=== PATIENT | male | born 1970 | race Caucasian/White ===

== ENCOUNTER 2018-07-10 03:29 | Emergency (ER) | payer MEDICARE, OTHER ==
--- NOTE | 2018-07-10 04:11 | ER Document Report ---
ED Psych Disorder / Suicide - General Mode of Arrival: Ambulatory Information source: Patient TRAVEL OUTSIDE OF THE U.[place]. IN LAST 30 DAYS: No <DORA WEINSTEIN - Last Filed: 07/10/18 04:11> <GABBIE DURAN - Last Filed: 07/10/18 22:21> - General Chief Complaint: Psych Problem Stated Complaint: PSYCH PROBLEM, IVC Time Seen by Provider: 07/10/18 03:42 Notes: Patient is a 47 year old male with bipolar disorder presents to the emergency department via [facility] on IVC paperwork. According to deputy, patient was making racial slurs and threatening to commit a mass shooting in [facility]. He states [facility] filed IVC paperwork on the patient and came to the [facility] to deliver them. Patient states he was at [facility] when he was picked up by the gluing crew leader's department. He states he does not know why he was picked up. He denies any HI, SI or making racial slurs. Patient states he was recently in a psychiatric facility a month ago and is now stable. He mentions currently taking [place] bicarbonate and further expresses concern for kidney damage due to taking the medication. He reports being compliant with all his medications. 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 (DORA WEINSTEIN) - Related Data Allergies/Adverse Reactions: No Known Allergies Allergy (Unverified 07/10/18 04:25) Past Medical History - General Information source: Patient, Law Enforcement - Social History Smoking Status: Unknown if Ever Smoked Family History: Reviewed & Not Pertinent Psychiatric Medical History: Reports: Hx Borderline Personality Disorder <DORA WEINSTEIN - Last Filed: 07/10/18 04:11> Review of Systems - Review of Systems Constitutional: No symptoms reported Cardiovascular: No symptoms reported Respiratory: No symptoms reported Gastrointestinal: No symptoms reported Genitourinary: No symptoms reported Male Genitourinary: No symptoms reported Musculoskeletal: No symptoms reported Skin: No symptoms reported Hematologic/Lymphatic: No symptoms reported Neurological/Psychological: See HPI -: Yes All other systems reviewed and negative <DORA WEINSTEIN - Last Filed: 07/10/18 04:11> Physical Exam - Vital signs Interpretation: Normal - General General appearance: Appears well, Alert - HEENT Head: Normocephalic, Atraumatic Eyes: Normal Pupils: PERRL - Respiratory Respiratory status: No respiratory distress Chest status: Nontender Breath sounds: Normal Chest palpation: Normal - Cardiovascular Rhythm: Regular Heart sounds: Normal auscultation Murmur: No - Abdominal Inspection: Normal Distension: No distension Bowel sounds: Normal Tenderness: Other - Suprapubic catheter that is not draining with urine leaking around it Organomegaly: No organomegaly - Back Back: Normal, Nontender - Extremities General upper extremity: Normal inspection, Nontender, Normal color, Normal ROM , Normal temperature General lower extremity: Normal inspection, Nontender, Normal color, Normal ROM , Normal temperature, Normal weight bearing. No: Martin's sign - Neurological Neuro grossly intact: Yes Cognition: Normal Orientation: AAOx4 Kelly Coma Scale Eye Opening: Spontaneous Holly Coma Scale Verbal: Oriented Kelly Coma Scale Motor: Obeys Commands Kelly Coma Scale Total: 15 Speech: Normal Motor strength normal: LUE, RUE, LLE, RLE Sensory: Normal - Psychological Associated symptoms: Psychomotor agitation, Other - Skin Skin Temperature: Warm Skin Moisture: Dry Skin Color: Normal <GABBIE DURAN - Last Filed: 07/10/18 22:21> - Vital signs Vitals: Temp Pulse BP Pulse Ox 99.4 F 86 135/77 H 100 07/10/18 03:33 07/10/18 03:33 07/10/18 03:33 07/10/18 03:33 Course <DORA WEINSTEIN - Last Filed: 07/10/18 04:11> - Laboratory Result Diagrams: 07/10/18 04:28 07/10/18 04:28 <GABBIE DURAN - Last Filed: 07/10/18 22:21> - Re-evaluation Re-evalutation: 07/10/18 05:35 Patient is a 47-year-old male who is brought in after being apparently homicidal , threatening a mass shooting, and making racial slurs in public. Patient was initially arrested and then IVC papers were brought in from [facility] so that he would have a mental health evaluation. Patient was recently in an inpatient psychiatric facility, he tells me a month ago. Patient has a history of bipolar disorder and is supposed to be taking lithium which he tells me that he has been taking. Unfortunately, his lithium level is nonexistent so this is unlikely the case. Patient also has a suprapubic catheter that does not appear to be effective at this time and will need to be replaced. Otherwise, he appears medically stable. He will be held for mental health evaluation. 07/10/18 06:00 Please note, given the specific plan that the patient has given for committing a mass shooting and that he was arrested prior to being brought in for mental health evaluation, it is strongly recommended that he be either placed in an inpatient psychiatric unit or go to fdc so that he is unable to harm anybody as planned. This was passed on to the daytime physician to relay to mental health. (GABBIE DURAN) - Vital Signs Vital signs: Temp Pulse Resp BP Pulse Ox 99.4 F 95 140/62 H 98 07/10/18 03:33 07/10/18 07:49 07/10/18 07:49 07/10/18 07:49 - Laboratory Laboratory results interpreted by me: 07/10/18 07/10/18 07/10/18 04:28 04:28 06:00 WBC 16.3 H Hgb 10.7 L Hct 34.1 L MCV 78 L MCH 24.6 L MCHC 31.5 L RDW 20.0 H Seg Neutrophils % 84.3 H Lymphocytes % 6.5 L Absolute Neutrophils 13.8 H Total Protein 6.2 L Albumin 3.2 L Urine Blood SMALL H Urine Nitrite POSITIVE H Urine Urobilinogen 2.0 H Ur Leukocyte Esterase LARGE H Salicylates < 1.0 L Acetaminophen < 10 L [place] 0.4 L Discharge <DORA WEINSTEIN - Last Filed: 07/10/18 04:11> <GABBIE DURAN - Last Filed: 07/10/18 22:21> - Discharge Clinical Impression: Homicidal ideation Condition: Stable Disposition: OTHER Referrals: LOCALMD,NO [NO LOCAL MD] - Follow up as needed Scribe Attestation: 07/10/18 22:20 I personally performed the services described in the documentation, reviewed and edited the documentation which was dictated to the scribe in my presence, and it accurately records my words and actions. (GABBIE DURAN) Scribe Documentation - Scribe Written by Scribe:: Damari Potter, 07/10/2018 04:13 acting as scribe for :: Deshaun <DORA WEINSTEIN - Last Filed: 07/10/18 04:11>
[2018-07-10 04:35] LABS: ABSOLUTE BASOPHILS # (AUTO) 0.1 10^3/uL (0.0-0.2); ABSOLUTE EOSINOPHILS # (AUTO) 0.1 10^3/uL (0.0-0.6); ABSOLUTE LYMPHOCYTES (AUTO) 1.1 10^3/uL (0.5-4.7); ABSOLUTE MONOCYTES (AUTO) 1.2 10^3/uL (0.1-1.4); ABSOLUTE NEUT (AUTO) 13.8 10^3/uL (1.7-8.2); BASOPHILS % (AUTO) 0.6 % (0-2); EOSINOPHILS % (AUTO) 0.9 % (0-6); HEMATOCRIT 34.1 % (37.9-51.0); HEMOGLOBIN 10.7 g/dL (13.5-17.0); LYMPHOCYTES % (AUTO) 6.5 % (13-45); MEAN CORPUSCULAR HEMOGLOBIN 24.6 pg (27.0-33.4); MEAN CORPUSCULAR HGB CONC 31.5 g/dL (32.0-36.0); MEAN CORPUSCULAR VOLUME 78 fl (80-97); MONOCYTES % (AUTO) 7.7 % (3-13); PLATELET COUNT 440 10^3/uL (150-450); RED BLOOD COUNT 4.36 10^6/uL (4.35-5.55); SEGMENTED NEUTROPHILS % (AUTO) 84.3 % (42-78); TOTAL CELLS COUNTED % (AUTO) 100 %; WHITE BLOOD COUNT 16.3 10^3/uL (4.0-10.5)
[2018-07-10 04:54] LABS: ALANINE AMINOTRANSFERASE 68 U/L (21-72); ALBUMIN 3.2 g/dL (3.5-5.0); ALKALINE PHOSPHATASE 88 U/L (38-126); ANION GAP 9 (5-19); ASPARTATE AMINO TRANSFERASE 37 U/L (17-59); BILIRUBIN,DIRECT 0.4 mg/dL (0.0-0.4); BILIRUBIN,TOTAL 0.7 mg/dL (0.2-1.3); BLOOD UREA NITROGEN 11 mg/dL (7-20); CALCIUM 8.7 mg/dL (8.4-10.2); CARBON DIOXIDE 30 mmol/L (22-30); CHLORIDE 100 mmol/L (98-107); GLUCOSE 96 mg/dL (75-110); LITHIUM 0.4 mEq/L (0.6-1.2); POTASSIUM 4.1 mmol/L (3.6-5.0); SODIUM 138.9 mmol/L (137-145); TOTAL PROTEIN 6.2 g/dL (6.3-8.2)
[2018-07-10 04:55] LABS: ACETAMINOPHEN < 10 ug/mL (10-30); ALCOHOL < 10 mg/dL (NONE DETECTED); SALICYLATE < 1.0 mg/dL (2.0-20.0)
[2018-07-10 06:31] LABS: APPEARANCE,URINE CLOUDY; BILIRUBIN,URINE NEGATIVE (NEGATIVE); COLOR,URINE YELLOW; GLUCOSE, URINE NEGATIVE (NEGATIVE); KETONES,URINE NEGATIVE (NEGATIVE); LEUKOCYTE ESTERASE,URINE LARGE (NEGATIVE); NITRITE,URINE POSITIVE (NEGATIVE); PROTEIN,URINE NEGATIVE (NEGATIVE); URINE SPECIFIC GRAVITY 1.004
[2018-07-10 06:34] LABS: URINE AMPHETAMINES SCREEN NEGATIVE; URINE BARBITURATES SCREEN NEGATIVE; URINE BENZODIAZEPINES SCREEN NEGATIVE; URINE COCAINE SCREEN NEGATIVE; URINE MARIJUANA (THC) SCREEN NEGATIVE; URINE METHADONE SCREEN NEGATIVE; URINE PHENCYCLIDINE SCREEN NEGATIVE
[2018-07-10] MEDS ORDERED: CEPHALEXIN 500 MG CAPSULE PO ONE ×2 (10:17→19:10)
--- NOTE | 2018-07-10 10:17 | ER Document Report ---
Doctor's Note Notes: 07/10/18 10:14 Rounds: Chart reviewed and patient interviewed. Patient here being evaluated for apparently threatening language. Patient has an extensive medical history. He sustained a condition known as transverse myelitis secondary to flu vaccination in 2011. As a result, patient has no bladder or bowel control. He has a suprapubic catheter in place. It has been having difficulty flowing. WBC 16,300, but patient does not appear to be septic, etc. He had a Ov catheter placed last night and it is flowing well and he has a leg bag for that catheter. Culture of the urine has been ordered. Vital signs are all normal. Patient appears to be medically stable for transfer or discharge. Chapito Solorzano MD
[2018-07-10] MEDS ORDERED: ACETAMINOPHEN 325 MG TABLET PO ONE ×2 (11:09→18:53)
[2018-07-10] MEDS ORDERED: OXYCODONE-ACETAMINOPHEN 5-325 MG TABLET PO ONE ×2 (11:09→18:52)
[2018-07-10] MEDS ORDERED: LITHIUM CARBONATE 300 MG CAPSULE PO ONE ×2 (16:21→17:00)
[2018-07-10] MEDS ORDERED: ACETAMINOPHEN 325 MG TABLET ONE (17:48)
--- NOTE | 2018-07-10 19:07 | PSYCHOLOGICAL NOTE ---
Psych Note - Psych Note Psych Note: Reason for Consult: IVC Patient is a 47 year old male with bipolar disorder presents to the emergency department via [facility] on IVC paperwork. According to , patient was making racial slurs and threatening to commit a mass shooting in [facility]. Patient disclosed that he was brought he by police but that he didn't communicate any threat. He disclosed he said "I wish to punch his teeth out....that is not a threat...I said I wish." He continued to disclose information and background on a relationship with a former friend that has caused discord. 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 He is firm in his report that he is taking the medication and becomes very agitated when asked about why there is no one detectable in his lab work and asked if the clinician was calling him a liar. He then reports that he would like to finish so he can get his dog from the hotel room. He stats the dog is a trained police and therapy dog and will only respond to him and attack anyone else. Patient then started talking about a drug deal that he needed to tell the authorities about; 'I tried to tell them last night but they wouldn't listen." Patient continued to discuss other topics, moving from one to the next quickly making connections with were difficult to follow. Behavioral health team contact IVC petitioner. This scientific writer spoke to Detective Vyas in [place] who petitioned the patient , who reports the patient has been inpatient at least 3x in [place] and per history has a diagnosis of Bipolar. Asael reports the patient is a witness to a crime in an on going investigation and came to the station informing them he did not like how the investigation is being run, stating he used to be in the [employer]. Per report patient often claims he knows about a big drug deal about to happen, hire to kill crimes and other delusions. Per Asael the patient has been threatening multiple business furniture sales consultant that have ban him, on two occasions leaving threatening voice mails, one of which patient states he was going to cause massive causalities in disguise on [facility]. Per Asael two days ago the patient was kicked out of [employer], then told the own "this is why there are mass shootings". Per calvin the patient had to be narcan about a month ago after using heroin and a life bullet vest and ammo were found in his car, he is also a convicted felon. Asael reports there is a video on facebook of the patient standing in the middle of the road yelling racial slurs. Clinician obtained collateral from Krish Wiseman [phone]. 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 He disclosed the patient comes to his place of business and sits to watch the martial arts classes. He reports the he always polite and never disrespectful. Krish reports he has also been an addictions warehouse operations manager for 20 years and admits he "has never worn that hat with" the patient he denies seeing any signs of an issue. He disclosed the patient has no concept of money and is always trying to do things for people and that "he lives in his own little world....tries to make everyone happy but lives in a different world." He disclosed the patient will talk all day and all night and moves from one topic to next quickly. He denies observing and racial tensions with the patient and disclosed he is and the patient has always been respectful to him. He reports he knows about the patient's dog and has already made arrangement for the dog to be cared for while the patient was at the hospital. He disclosed the dog is a puppy about 2 months old and is very friendly. Patient was able to speak to Krish and confirms his dog is taken care of; "the girl I just met yesterday is my girl friend and she has my dog....I just met her yesterday and she is already my girl friend." Patient was noted to be very happy about this information. Clinician notes the patient was picked up for the IVC at a local strip club, [place] [facility]. Patient is alert and orientated to person, place time and circumstance. Mood is elevated with somewhat restricted affect. Clinician notes the patient does have some medical issues that may contribute to restricted affect, patient did have paralysis in the past and his shuffles when he walks. Delusions of grandeur are noted. Thought process were somewhat disjointed and focused on his delusions. Eye contact was fair. Conversational speech was pressured, circular in topics with little connection between topics. Attention and concentration are poor. Insight, judgment are poor, currently impulse control is good. Patient is noted to be intelligent and able to "pull off" appropriate presentation for a significant amount of time but is unable to maintain throughout the evaluation. Medication recommendations per [facility]'s contracted psychiatrist Dr Ирина VARGAS are as follows [place] 300mg every morning and 600mg every evening Diagnosis 296.44 (F31.2) Biploar 1 disorder,manic with psychotic features Impression/Plan: Patient recommended to continue under IVC. Patient is subtheraputic on his medications. Patient was just released from inpatient psychiatric treatment one month ago and has quickly decompensated since his release. He presents with delusions of grandeur. There is concern the patient has been demonstrating erratic behaviours for the last two weeks and has threatening to commit a mass shooting on [place] while wearing a costume in a specific club in [place]. Dr. Fried was consulted on the care and management of this patient;attending physician is in agreement with recommendations and disposition.
[2018-07-10] MEDS: LITHIUM CARBONATE 300 MG CAPSULE PO SCH (22:19)
[2018-07-11] MEDS: LITHIUM CARBONATE 300 MG CAPSULE PO SCH ×2 (07:54→22:44)
[2018-07-11] MEDS: CEPHALEXIN 250 MG CAPSULE PO SCH ×3 (09:52→18:33)
--- NOTE | 2018-07-11 10:04 | ER Document Report ---
Doctor's Note Notes: 07/11/18 10:03 Patient seen and examined this morning, and reevaluated. Patient is feeling much better after his Vo catheter was exchanged, he started on Keflex for UTI , patient is still having some delusional thoughts, resumed on lithium yesterday , states that he is feeling better, denies hallucinations, suicidal homicidal ideation, however the patient made significant threats prior to ED arrival, with specifics to complete a mass shooting, will continue to have him evaluated from behavioral health standpoint, and determine disposition at that point.
--- NOTE | 2018-07-11 14:13 | EKG REPORT ---
SEVERITY:- ABNORMAL ECG - SINUS OR ECTOPIC ATRIAL RHYTHM IVCD, CONSIDER ATYPICAL RBBB : Confirmed by: Marco Lux MD 11-Jul-2018 14:12:26
[2018-07-11] MEDS ORDERED: OXYCODONE HCL IR 5 MG TABLET PO ONE (14:40)
--- NOTE | 2018-07-11 16:40 | PSYCHOLOGICAL NOTE ---
Psych Note - Psych Note Psych Note: Reason for Consult: IVC Patient is a 47 year old male with bipolar disorder presents to the emergency department via [facility] on IVC paperwork. According to deputy, patient was making racial slurs and threatening to commit a mass shooting in [facility]. Check in conducted with patient Patient reports he is feeling "perfect...just like yesterday...perfecto..that is my [place] language...Telugu...I speak 7 languages fluently but only acknowledge 5...well no I actually speak 10 languages." patient then starts count in another language. Patient disclose that he is not worried about his dog because "she is with my long lost love." when asked for clarification since the patient reported just meeting his girlfriend the day before he reports "I have known her years but I am giving her a fresh start so I consider it just meeting." Patient then discussing his girl friend's past was someone he knew that committed suicide, but he has forgiven her for that but it was hard. Patient started talking about sows and cubs and about the bible then skipped to talk about his involvement in an investigation where is was higher for murder but clinician was unable to follow his thought processes. Medication recommendations per [facility]'s contracted psychiatrist Dr Ирина VARGAS are as follows [place] 300mg every morning and 600mg every evening Diagnosis 296.44 (F31.2) Biploar 1 disorder,manic with psychotic features Impression/Plan: Patient recommended to continue under IVC. Patient is noted to appear to be decompensating further, even after starting medication recommendations. Patient has increased flight of thought, pressured speech and verbalizing his grandiose delusions. Patient has been noted by [facility] staff to be "speaking" in multiple languages. Attending physician put in a request to check lithium levels again to see if there are any changes in his levels. There is concern the patient may be cheeking his medications. Dr. Fried was consulted on the care and management of this patient;attending physician is in agreement with recommendations and disposition.
[2018-07-11] MEDS ORDERED: OXYCODONE HCL IR 5 MG TABLET PO SCH (18:00)
[2018-07-11] MEDS ORDERED: PROMETHAZINE HCL 25 MG TABLET PO ONE (18:05)
[2018-07-12] MEDS: OXYCODONE HCL IR 5 MG TABLET PO SCH ×3 (01:55→18:37)
--- NOTE | 2018-07-12 03:35 | ER Document Report ---
Doctor's Note Notes: 07/12/18 03:34 Patient suprapubic catheter fell out and went to the bathroom. Patient says catheter was placed 6 years ago. Stoma is intact. I place a new 16 Kazakh Vo catheter in the suprapubic region. Area was cleaned with Betadine and procedure was done sterilely. I did wear sterile gloves. No urine was expressed from catheter after was placed. Balloon was blown up. Patient tolerated well without any pain. Dictation of this chart was performed using voice recognition software; therefore, there may be some unintended grammatical errors.
--- NOTE | 2018-07-12 09:59 | ER Document Report ---
Doctor's Note Notes: 07/12/18 09:59 Patient has been seen and evaluated resting comfortably no acute distress. Laboratory values previous provider note and vital signs have been evaluated. Patient otherwise looks to be stable for disposition/transfer.
[2018-07-12] MEDS ORDERED: VALPROATE SODIUM SYRUP 250 MG/5 ML UDCUP PO SCH (10:45)
[2018-07-12] MEDS: VALPROATE SODIUM SYRUP 250 MG/5 ML UDCUP PO SCH ×2 (11:21→21:38)
[2018-07-12] MEDS: CEPHALEXIN 250 MG CAPSULE PO SCH ×3 (11:22→18:37)
[2018-07-12] MEDS ORDERED: DIPHENHYDRAMINE HCL 50 MG CAPSULE PO ONE (22:15)
[2018-07-13] MEDS: OXYCODONE HCL IR 5 MG TABLET PO SCH ×3 (04:49→21:49)
[2018-07-13] MEDS: LITHIUM CARBONATE 300 MG CAPSULE PO SCH (08:05)
--- NOTE | 2018-07-13 09:00 | PSYCHOLOGICAL NOTE ---
Psych Note - Psych Note Psych Note: Reason for Consult: IVC Patient is a 47 year old male with bipolar disorder presents to the emergency department via [facility] on IVC paperwork. According to , patient was making racial slurs and threatening to commit a mass shooting in [facility]. Check in conducted with patient Patient to present with pressured speech and flight of thought. Patient disclosed to he wsa working on his budget and is planing on purchasing [address] in [facility] to build a log cabin; "I will build it myself, it will only take me 3 months." He reports he has enjoyed his time here with [facility] ED and is planing on transferring of his services to [place] to remove himself from [facility] and the difficulties he has had there. Patient then talks about his charly saying he is Quaker and then discuses how happy he and even got his favorite breakfast because it reminds him of his others cooking. Medication recommendations per [facility]'s contracted psychiatrist Dr Ирина VARGAS are as follows Depakene 500 mg twice daily Cogentin 1 mg twice daily Diagnosis 296.44 (F31.2) Biploar 1 disorder,manic with psychotic features Impression/Plan: Patient recommended to continue under IVC. Patient continues to present with grandiose delusions, pressured speech and flight of thought. Mood is irritable with congruent affect. New medication recommendations have been provided. Patient was subtherapeutic on his lithium which indicates the patient was most likely cheeking his medications. Dr. Fried was consulted on the care and management of this patient;attending physician is in agreement with recommendations and disposition.
--- NOTE | 2018-07-13 10:09 | ER Document Report ---
Doctor's Note Notes: 07/13/18 10:07 Rounds: Chart reviewed and patient not interviewed because sleeping soundly at this time. I am familiar with the patient as I was the admitting physician when he was initially admitted here 5 days ago. Working diagnosis is bipolar disorder. Patient is currently on Depakote. Also on lithium. Vital signs are all essentially normal. Patient's has a suprapubic catheter and a urine culture upon arrival is now growing out Klebsiella pneumoniae, a bacterium that is resistant to many antibiotics, including the Keflex that the patient has been treated with for the last 4 days. Have stopped his Keflex and started the patient on Levaquin 750 mg daily. Patient appears to be medically stable for transfer or discharge. Chapito Solorzano MD 07/13/18 10:55 Patient is now awake. Says he feels so much better since he started on the Depakote and feels it was the perfect medication he needed to stabilize himself. He continues on his lithium, as well. Patient is quite convincing and feels he is much improved and able to be discharged. Urine culture results were explained to the patient and why he is being switched to a different antibiotic. I have made him aware of the need to get a prescription for an antibiotic when he is discharge from our facility and to get a urological follow-up. Chapito Solorzano MD
[2018-07-13] MEDS: VALPROATE SODIUM SYRUP 250 MG/5 ML UDCUP PO SCH ×2 (10:26→21:51)
[2018-07-13] MEDS: LEVOFLOXACIN 750 MG TABLET PO SCH (10:26)
[2018-07-13] MEDS: CEPHALEXIN 250 MG CAPSULE PO SCH (10:27)
--- NOTE | 2018-07-13 17:47 | PSYCHOLOGICAL NOTE ---
Psych Note - Psych Note Psych Note: 3rd re-evaluation Impression/Plan: Recommendation to maintain IVC given patient's continued pressured speech, tangential thinking, flight of ideas, and hyper-sikh thinking. Medications were just adjusted yesterday due to concern for patient being noncompliant with [place] given he was sub-therapeutic (0.4L upon arrival to ED and then a day later after getting it scheduled while in the ED). [facility] Behavioral Health team Instructional Systems Designer completed a [facility] referral today. Consulted with Dr. Fried regarding the management and care of patient. ED Physician in agreement with recommendations.
[2018-07-14] MEDS: OXYCODONE HCL IR 5 MG TABLET PO SCH ×2 (10:09→18:11)
[2018-07-14] MEDS: VALPROATE SODIUM SYRUP 250 MG/5 ML UDCUP PO SCH (10:09)
[2018-07-14] MEDS: LEVOFLOXACIN 750 MG TABLET PO SCH (10:10)
[2018-07-14] MEDS: LITHIUM CARBONATE 300 MG CAPSULE PO SCH (10:10)
--- NOTE | 2018-07-14 12:08 | ER Document Report ---
Doctor's Note Notes: 07/14/18 12:06 Rounds: Chart reviewed and patient interviewed. Patient very talkative. Sounds very convincing. Still seems to have grandiose stories to tell. Says he is feeling a lot better with the Depakote. Vital signs are all normal. No labs to review. Patient appears to be medically stable for transfer or discharge. Wants to be discharged and feels he can manage himself. Chapito Solorzano MD
--- NOTE | 2018-07-14 16:23 | PSYCHOLOGICAL NOTE ---
Psych Note - Psych Note Psych Note: 4th re-evaluation Search of pending charges revealed the following: One of the questions Marlen had inquired about [facility]: Speeding/Wreckless Driving to Endanger: Court 07/18/18 [facility]: Driving While Impaired: Court 09/02/18 Failure to Reduce Speed: Court 10/11/18 Disorderly Conduct/Impede Traffic Slow Speed/Drive Left of Center: Court 08/16/18 Communicating Threats/Ethnic Intimidation: Court 10/02/18 Impression/Plan: Recommendation to maintain IVC given medications were changed 2 days ago and he continued to have pressured speech, tangential thinking, and hyper latter-day thoughts. Marlen referral did not go through via fax last night due to it being busy. It was re-faxed today and they did call attending nurse for additional information. Attending nurse noted Marlen stated he was on the wait list to be reviewed. Consulted with Dr. Fried regarding the management and care of patient. ED Physician in agreement with recommendations.
[2018-07-15] MEDS: VALPROATE SODIUM SYRUP 250 MG/5 ML UDCUP PO SCH ×3 (00:15→21:37)
[2018-07-15] MEDS: OXYCODONE HCL IR 5 MG TABLET PO SCH ×5 (03:39→21:39)
[2018-07-15] MEDS: LITHIUM CARBONATE 300 MG CAPSULE PO SCH ×2 (08:23→21:38)
[2018-07-15] MEDS: LEVOFLOXACIN 750 MG TABLET PO SCH (10:14)
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
[2018-07-16] MEDS: OXYCODONE HCL IR 5 MG TABLET PO SCH ×3 (06:11→17:32)
[2018-07-16] MEDS: LITHIUM CARBONATE 300 MG CAPSULE PO SCH (08:03)
--- NOTE | 2018-07-16 09:21 | ER Document Report ---
Doctor's Note Notes: 07/16/18 09:36 Currently at this time will repeat CBC, chemistry, lithium and valproic acid levels. Review of the cultures show the patient is currently being treated adequately for his Klebsiella pneumonia urine infection. More than likely this represents a colonization as patient has a suprapubic catheter. Still waiting for placement. Likely patient will need to be in [facility] as recommended. Will continue to follow. Patient requires no further intervention at this time. Will follow up on labs later today. Course - Re-evaluation Re-evalutation: 07/16/18 20:50 Microbiology 07/10/18 06:00 Urine Culture - Final Catheterized Urine Klebsiella Pneumoniae-Esbl Laboratory 07/10/18 07/10/18 07/10/18 04:28 04:28 06:00 WBC 16.3 H RBC 4.36 Hgb 10.7 L Hct 34.1 L MCV 78 L MCH 24.6 L MCHC 31.5 L RDW 20.0 H Plt Count 440 Seg Neutrophils % 84.3 H Lymphocytes % 6.5 L Monocytes % 7.7 Eosinophils % 0.9 Basophils % 0.6 Absolute Neutrophils 13.8 H Absolute Lymphocytes 1.1 Absolute Monocytes 1.2 Absolute Eosinophils 0.1 Absolute Basophils 0.1 Sodium 138.9 Potassium 4.1 Chloride 100 Carbon Dioxide 30 Anion Gap 9 BUN 11 Creatinine 1.18 Est GFR ( Amer) > 60 Est GFR (Non-Af Amer) > 60 Glucose 96 Calcium 8.7 Total Bilirubin 0.7 Direct Bilirubin 0.4 Neonat Total Bilirubin Not Reportable Neonat Direct Bilirubin Not Reportable Neonat Indirect Bili Not Reportable AST 37 ALT 68 Alkaline Phosphatase 88 Total Protein 6.2 L Albumin 3.2 L Urine Color YELLOW Urine Appearance CLOUDY Urine pH 7.0 Ur Specific Wheeler 1.004 Urine Protein NEGATIVE Urine Glucose (UA) NEGATIVE Urine Ketones NEGATIVE Urine Blood SMALL H Urine Nitrite POSITIVE H Urine Bilirubin NEGATIVE Urine Urobilinogen 2.0 H Ur Leukocyte Esterase LARGE H Urine WBC (Auto) >182 Urine RBC (Auto) 1 Urine Bacteria (Auto) 3+ Urine Mucus (Auto) RARE Urine Ascorbic Acid NEGATIVE Salicylates < 1.0 L Urine Opiates Screen Urine Methadone Screen Acetaminophen < 10 L Ur Barbiturates Screen Valproic Acid Ur Phencyclidine Scrn Ur Amphetamines Screen U Benzodiazepines Scrn [place]burn 0.4 L Urine Cocaine Screen U Marijuana (THC) Screen Serum Alcohol < 10 07/10/18 07/11/18 07/15/18 06:00 17:30 10:45 WBC RBC Hgb Hct MCV MCH MCHC RDW Plt Count Seg Neutrophils % Lymphocytes % Monocytes % Eosinophils % Basophils % Absolute Neutrophils Absolute Lymphocytes Absolute Monocytes Absolute Eosinophils Absolute Basophils Sodium Potassium Chloride Carbon Dioxide Anion Gap BUN Creatinine Est GFR ( Amer) Est GFR (Non-Af Amer) Glucose Calcium Total Bilirubin Direct Bilirubin Neonat Total Bilirubin Neonat Direct Bilirubin Neonat Indirect Bili AST ALT Alkaline Phosphatase Total Protein Albumin Urine Color Urine Appearance Urine pH Ur Specific Wheeler Urine Protein Urine Glucose (UA) Urine Ketones Urine Blood Urine Nitrite Urine Bilirubin Urine Urobilinogen Ur Leukocyte Esterase Urine WBC (Auto) Urine RBC (Auto) Urine Bacteria (Auto) Urine Mucus (Auto) Urine Ascorbic Acid Salicylates Urine Opiates Screen NEGATIVE Urine Methadone Screen NEGATIVE Acetaminophen Ur Barbiturates Screen NEGATIVE Valproic Acid Ur Phencyclidine Scrn NEGATIVE Ur Amphetamines Screen NEGATIVE U Benzodiazepines Scrn NEGATIVE [place]burn 0.4 L 0.4 L Urine Cocaine Screen NEGATIVE U Marijuana (THC) Screen NEGATIVE Serum Alcohol 07/16/18 07/16/18 10:55 10:55 WBC 11.3 H RBC 4.72 Hgb 11.7 L Hct 37.1 L MCV 79 L MCH 24.9 L MCHC 31.7 L RDW 19.8 H Plt Count 594 H Seg Neutrophils % 78.7 H Lymphocytes % 13.5 Monocytes % 4.9 Eosinophils % 2.1 Basophils % 0.8 Absolute Neutrophils 8.9 H Absolute Lymphocytes 1.5 Absolute Monocytes 0.6 Absolute Eosinophils 0.2 Absolute Basophils 0.1 Sodium 140.6 Potassium 4.7 Chloride 100 Carbon Dioxide 34 H Anion Gap 7 BUN 11 Creatinine 0.93 Est GFR ( Amer) > 60 Est GFR (Non-Af Amer) > 60 Glucose 166 H Calcium 9.5 Total Bilirubin Direct Bilirubin Neonat Total Bilirubin Neonat Direct Bilirubin Neonat Indirect Bili AST ALT Alkaline Phosphatase Total Protein Albumin Urine Color Urine Appearance Urine pH Ur Specific Wheeler Urine Protein Urine Glucose (UA) Urine Ketones Urine Blood Urine Nitrite Urine Bilirubin Urine Urobilinogen Ur Leukocyte Esterase Urine WBC (Auto) Urine RBC (Auto) Urine Bacteria (Auto) Urine Mucus (Auto) Urine Ascorbic Acid Salicylates Urine Opiates Screen Urine Methadone Screen Acetaminophen Ur Barbiturates Screen Valproic Acid 53.9 Ur Phencyclidine Scrn Ur Amphetamines Screen U Benzodiazepines Scrn Blackburn 0.3 L Urine Cocaine Screen U Marijuana (THC) Screen Serum Alcohol - Vital Signs Vital signs: Temp Pulse Resp BP Pulse Ox 98.1 F 70 18 122/70 100 07/16/18 16:16 07/16/18 16:16 07/16/18 16:16 07/16/18 16:16 07/16/18 16:16 - Laboratory Result Diagrams: 07/16/18 10:55 07/16/18 10:55 Laboratory results interpreted by me: 07/10/18 07/10/18 07/10/18 04:28 04:28 06:00 WBC 16.3 H Hgb 10.7 L Hct 34.1 L MCV 78 L MCH 24.6 L MCHC 31.5 L RDW 20.0 H Plt Count Seg Neutrophils % 84.3 H Lymphocytes % 6.5 L Absolute Neutrophils 13.8 H Carbon Dioxide Glucose Total Protein 6.2 L Albumin 3.2 L Urine Blood SMALL H Urine Nitrite POSITIVE H Urine Urobilinogen 2.0 H Ur Leukocyte Esterase LARGE H Salicylates < 1.0 L Acetaminophen < 10 L [place]burn 0.4 L 07/11/18 07/15/18 07/16/18 17:30 10:45 10:55 WBC Hgb Hct MCV MCH MCHC RDW Plt Count Seg Neutrophils % Lymphocytes % Absolute Neutrophils Carbon Dioxide 34 H Glucose 166 H Total Protein Albumin Urine Blood Urine Nitrite Urine Urobilinogen Ur Leukocyte Esterase Salicylates Acetaminophen [place]burn 0.4 L 0.4 L 0.3 L 07/16/18 10:55 WBC 11.3 H Hgb 11.7 L Hct 37.1 L MCV 79 L MCH 24.9 L MCHC 31.7 L RDW 19.8 H Plt Count 594 H Seg Neutrophils % 78.7 H Lymphocytes % Absolute Neutrophils 8.9 H Carbon Dioxide Glucose Total Protein Albumin Urine Blood Urine Nitrite Urine Urobilinogen Ur Leukocyte Esterase Salicylates Acetaminophen Blackburn
[2018-07-16] MEDS: VALPROATE SODIUM SYRUP 250 MG/5 ML UDCUP PO SCH ×2 (10:17→22:37)
[2018-07-16] MEDS: LEVOFLOXACIN 750 MG TABLET PO SCH (10:17)
[2018-07-16 11:06] LABS: ABSOLUTE BASOPHILS # (AUTO) 0.1 10^3/uL (0.0-0.2); ABSOLUTE EOSINOPHILS # (AUTO) 0.2 10^3/uL (0.0-0.6); ABSOLUTE LYMPHOCYTES (AUTO) 1.5 10^3/uL (0.5-4.7); ABSOLUTE MONOCYTES (AUTO) 0.6 10^3/uL (0.1-1.4); ABSOLUTE NEUT (AUTO) 8.9 10^3/uL (1.7-8.2); BASOPHILS % (AUTO) 0.8 % (0-2); EOSINOPHILS % (AUTO) 2.1 % (0-6); HEMATOCRIT 37.1 % (37.9-51.0); HEMOGLOBIN 11.7 g/dL (13.5-17.0); LYMPHOCYTES % (AUTO) 13.5 % (13-45); MEAN CORPUSCULAR HEMOGLOBIN 24.9 pg (27.0-33.4); MEAN CORPUSCULAR HGB CONC 31.7 g/dL (32.0-36.0); MEAN CORPUSCULAR VOLUME 79 fl (80-97); MONOCYTES % (AUTO) 4.9 % (3-13); PLATELET COUNT 594 10^3/uL (150-450); RED BLOOD COUNT 4.72 10^6/uL (4.35-5.55); RED CELL DISTRIBUTION WIDTH 19.8 % (11.5-14.0); SEGMENTED NEUTROPHILS % (AUTO) 78.7 % (42-78); TOTAL CELLS COUNTED % (AUTO) 100 %; WHITE BLOOD COUNT 11.3 10^3/uL (4.0-10.5)
[2018-07-16 11:21] LABS: ANION GAP 7 (5-19); BLOOD UREA NITROGEN 11 mg/dL (7-20); CALCIUM 9.5 mg/dL (8.4-10.2); CARBON DIOXIDE 34 mmol/L (22-30); CHLORIDE 100 mmol/L (98-107); GLUCOSE 166 mg/dL (75-110); LITHIUM 0.3 mEq/L (0.6-1.2); POTASSIUM 4.7 mmol/L (3.6-5.0); SODIUM 140.6 mmol/L (137-145)
--- NOTE | 2018-07-16 18:27 | PSYCHOLOGICAL NOTE ---
Psych Note - Psych Note Psych Note: 6th re-evaluation Impression/Plan: Recommendation to maintain IVC. Just conducted [place] (0.3L) and Depakote (53.9) levels today. He presents demanding. There are concerns as patient becomes verbally aggressive when he is told no or does not get his way. Please note he has not been physically aggressive in any way. Consulted with Dr. Fried regarding the management and care of patient. ED Physician in agreement with recommendations.
[2018-07-17] MEDS: OXYCODONE HCL IR 5 MG TABLET PO SCH ×2 (01:38→09:16)
[2018-07-17] MEDS ORDERED: TRAZODONE HCL 50 MG TABLET PO ONE (02:10)
[2018-07-17] MEDS: VALPROATE SODIUM SYRUP 250 MG/5 ML UDCUP PO SCH (09:16)
[2018-07-17] MEDS: LITHIUM CARBONATE 300 MG CAPSULE PO SCH (09:16)
[2018-07-17] MEDS: LEVOFLOXACIN 750 MG TABLET PO SCH (09:16)
--- NOTE | 2018-07-17 10:02 | ER Document Report ---
Doctor's Note Notes: 07/17/18 10:02 As the rounding physician for our psychiatric patients, I have reviewed the chart, vitals, lab work. Patient has been examined and noted to be . I am awaiting mental health in put. No reported events overnight. Patient is resting comfortably. Medication recommendations given by psych team include lithium 300 mg and 500 mg twice daily. Patient will be discharged home. He is not meeting IVC criteria. PHYSICAL EXAMINATION: GENERAL: Well-appearing, well-nourished and in no acute distress. HEAD: Atraumatic, normocephalic. EYES: Pupils equal round extraocular movements intact, conjunctiva are normal. ENT: Nares patent NECK: Normal range of motion LUNGS: No respiratory distress Musculoskeletal: Normal range of motion NEUROLOGICAL: Normal speech, normal gait. PSYCH: Normal mood, normal affect. SKIN: Warm, Dry, normal turgor, no rashes or lesions noted. 07/17/18 13:29
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
[2018-07-17 13:51] VITALS: BP 131/65
== END 2018-07-17 13:50 | disposition home or self-care (01) ==
LOC: ER 03:29
DX: R45.850 Homicidal ideations (principal); F31.5 Bipolar disorder, current episode depressed, severe, with psychotic features; G37.3 Acute transverse myelitis in demyelinating disease of central nervous system; Z46.6 Encounter for fitting and adjustment of urinary device
CPT/HCPCS: 93005; 99285; 51702; 36415; 87086; 80307 ×4; 80178; 85025; 87088; 80048; 80053; 81001; 80164; 87186; 93010; A9270 ×23; J3490 ×6

== ENCOUNTER 2018-07-25 14:33 | Emergency (ER) | payer MEDICARE ==
[2018-07-25] MEDS ORDERED: ONDANSETRON 4 MG TAB.RAPDIS PO ONE (15:13)
[2018-07-25] MEDS ORDERED: HYDROCODONE/ACETAMINOPHEN 5-325 MG TABLET PO ONE (15:13)
--- NOTE | 2018-07-25 15:20 | ER Document Report ---
ED General - General Chief Complaint: Flank Pain Stated Complaint: RIGHT SIDE PAIN Time Seen by Provider: 07/25/18 14:38 Mode of Arrival: Ambulatory Information source: Patient Notes: Patient is a 47-year-old male who presents with chief complaint of right-sided flank pain. Patient reports history of kidney stones. Patient has a suprapubic catheter. Patient states he is already taking doxycycline for a urinary tract infection. Patient unsure if he has had fever or chills. Patient reports multiple episodes of diarrhea he thinks this is associated with the antibiotic he is on. TRAVEL OUTSIDE OF THE [place] IN LAST 30 DAYS: No - Related Data Allergies/Adverse Reactions: No Known Allergies Allergy (Verified 07/25/18 14:33) Past Medical History - General Information source: Patient - Social History Smoking Status: Never Smoker Frequency of alcohol use: None Drug Abuse: None Family History: Reviewed & Not Pertinent Patient has suicidal ideation: No Patient has homicidal ideation: No Renal/ Medical History: Reports: Hx Kidney Stones, Other - Suprapubic catheter. Denies: Hx Peritoneal Dialysis Psychiatric Medical History: Reports: Hx Bipolar Disorder, Hx Borderline Personality Disorder Past Surgical History: Reports: Hx Abdominal Surgery - suprapubic catheter, Hx Cholecystectomy Review of Systems - Review of Systems Constitutional: No symptoms reported EENT: No symptoms reported Cardiovascular: No symptoms reported Respiratory: No symptoms reported Gastrointestinal: See HPI Genitourinary: See HPI Male Genitourinary: No symptoms reported Musculoskeletal: No symptoms reported Skin: No symptoms reported Hematologic/Lymphatic: No symptoms reported Neurological/Psychological: No symptoms reported Physical Exam - Vital signs Vitals: Pulse Resp BP Pulse Ox 95 20 128/70 H 100 07/25/18 14:38 07/25/18 14:38 07/25/18 14:38 07/25/18 14:38 - Notes Notes: PHYSICAL EXAMINATION: GENERAL: Well-appearing, well-nourished and in no acute distress. HEAD: Atraumatic, normocephalic. EYES: Pupils equal round and reactive to light, extraocular movements intact, sclera anicteric, conjunctiva are normal. ENT: Nares patent, oropharynx clear without exudates. Moist mucous membranes. NECK: Normal range of motion, supple without lymphadenopathy LUNGS: Breath sounds clear to auscultation bilaterally and equal. No wheezes rales or rhonchi. HEART: Regular rate and rhythm without murmurs ABDOMEN: Soft, nontender, nondistended abdomen. No guarding, no rebound. No masses appreciated. Genitourinary: Suprapubic catheter in place, draining well. Musculoskeletal: Normal range of motion, no pitting or edema. No cyanosis. NEUROLOGICAL: Cranial nerves grossly intact. Normal speech, normal gait. Normal sensory, motor exams PSYCH: Normal mood, normal affect. SKIN: Warm, Dry, normal turgor, no rashes or lesions noted. Course - Re-evaluation Re-evalutation: Patient's laboratory and urinalysis support a diagnosis of acute pyelonephritis. Patient's vital signs are stable and patient is able to tolerate p.o. fluids. Patient will be given dose of IV Rocephin and started on p.o. antibiotics. Patient is agreeable to this plan. Patient given very strict ED return precautions. Urine sent for culture. - Vital Signs Vital signs: Temp Pulse Resp BP Pulse Ox 97.3 F 81 20 126/78 H 98 07/25/18 17:22 07/25/18 17:22 07/25/18 17:22 07/25/18 17:22 07/25/18 17:22 - Laboratory Result Diagrams: 07/25/18 15:30 07/25/18 15:30 Laboratory results interpreted by me: 07/25/18 07/25/18 07/25/18 15:30 15:30 16:02 Hgb 11.0 L Hct 34.6 L MCV 78 L MCH 24.7 L MCHC 31.7 L RDW 19.5 H Seg Neutrophils % 78.9 H Lymphocytes % 11.8 L Glucose 55 L Total Protein 6.1 L Albumin 3.1 L Urine Protein 100 H Urine Blood SMALL H Urine Urobilinogen 2.0 H Ur Leukocyte Esterase LARGE H Urine Ascorbic Acid 20 H Discharge - Discharge Clinical Impression: Pyelonephritis Condition: Stable Disposition: HOME, SELF-CARE Additional Instructions: PYELONEPHRITIS: Your evaluation shows evidence of pyelonephritis. This is an infection in the kidney. Typical symptoms are fever, pain in the flank, pain on urination, and frequent urination. Many cases of pyelonephritis can be treated at home. Hospital care may be necessary for patients who are very ill, or elderly or . Pyelonephritis is treated with antibiotics. Be sure to take all the medication as prescribed. Drink plenty of liquids (about three quarts per day) . You may take acetaminophen for fever. You should feel significantly improved within two days. You should have a recheck of your urine in about one week to insure that the infection is gone. Return for a re-examination if your symptoms worsen in any way -- such as high fever, shaking chills, severe weakness or dizziness, severe pain, or inability to pass your urine. ANTIBIOTIC THERAPY: You have been given an antibiotic prescription. It's important that you take all the medication, unless instructed otherwise by your physician. Failure to complete the entire course can result in relapse of your condition. Common side effects of antibiotics include nausea, intestinal cramping, or diarrhea. Women may develop vaginal yeast infections, and babies can get yeast (thrush) in the mouth following the use of antibiotics. Contact your physician if you develop significant side effects from this medication. Allergy to this antibiotic can result in hives, wheezing, faintness, or itching. If symptoms of allergy occur, stop the medication and call the doctor. ROCEPHIN: You have been given an injection of an antibiotic called Rocephin ( ceftriaxone). Sometimes the injection must be combined with antibiotic pills. For some infections, such as an uncomplicated ear infection, Rocephin provides all the antibiotic that's needed. The antibiotic will be in your body for about two days. For serious infections, we usually repeat doses of Rocephin daily. Side effects are very unusual following a shot. Women may develop vaginal yeast infections, and babies can get yeast (thrush) in the mouth following the use of antibiotics. Contact your physician if you have symptoms with this medication. Allergy to this antibiotic can result in hives, wheezing, faintness, or itching. If symptoms of allergy occur, call the doctor at once. LEVOFLOXACIN: You have been given an antibacterial agent, levofloxacin (Levaquin). This medicine is not related to the penicillins, sulfas, cephalosporins, or tetracyclines. It is often given to patients who are allergic to these drugs. It has been chosen for you either because other drugs are not appropriate, or because of the nature of your problem. Levaquin should not be taken with antacids, as these can decrease its effectiveness. It can be taken without regard to meals. LEVAQUIN SHOULD NOT BE TAKEN BY CHILDREN, NURSING WOMEN, OR WOMEN. Although Levaquin is usually well-tolerated, common side effects can include nausea and diarrhea. Contact your doctor if you experience any unusual symptoms while on this medication, such as joint pain or swelling, shortness of breath, wheezing, faintness, or hives TRIMETHOPRIM-SULFA: You have been given a prescription for trimethoprim-sulfa (TMS, Septra, Bactrim). This is a combination antibiotic of the sulfa class, often used for urinary tract infections, middle ear infections, bronchitis, shigella intestinal infection, and Pneumocystis pneumonia. TMS is usually well-tolerated. Occasional side effects include nausea and decreased appetite. Septra is not recommended for infants less than two months of age. Do not take this medication if you have experienced severe side effects or allergy to sulfa medicine. You should stop this medicine at once and contact your physician if you develop any rash, joint pain, shortness of breath, bruising, or jaundice ( yellow color in the skin), or if you develop any other new or unusual symptoms. FOLLOW-UP CARE: If you have been referred to a physician for follow-up care, call the physician s office for an appointment as you were instructed or within the next two days. If you experience worsening or a significant change in your symptoms, notify the physician immediately or return to the Emergency Department at any time for re-evaluation. Please take medication as prescribed, stop the doxycycline. It does not appear to be helping. I am sending your urine for a culture, we will call you and change the antibiotic if need be. Please drink plenty of fluids.
[2018-07-25 15:41] LABS: ABSOLUTE BASOPHILS # (AUTO) 0.1 10^3/uL (0.0-0.2); ABSOLUTE EOSINOPHILS # (AUTO) 0.1 10^3/uL (0.0-0.6); ABSOLUTE LYMPHOCYTES (AUTO) 1.1 10^3/uL (0.5-4.7); ABSOLUTE MONOCYTES (AUTO) 0.7 10^3/uL (0.1-1.4); ABSOLUTE NEUT (AUTO) 7.6 10^3/uL (1.7-8.2); BASOPHILS % (AUTO) 1.2 % (0-2); EOSINOPHILS % (AUTO) 1.1 % (0-6); HEMATOCRIT 34.6 % (37.9-51.0); LYMPHOCYTES % (AUTO) 11.8 % (13-45); MEAN CORPUSCULAR HEMOGLOBIN 24.7 pg (27.0-33.4); MEAN CORPUSCULAR HGB CONC 31.7 g/dL (32.0-36.0); MEAN CORPUSCULAR VOLUME 78 fl (80-97); PLATELET COUNT 425 10^3/uL (150-450); RED BLOOD COUNT 4.45 10^6/uL (4.35-5.55); RED CELL DISTRIBUTION WIDTH 19.5 % (11.5-14.0); SEGMENTED NEUTROPHILS % (AUTO) 78.9 % (42-78); TOTAL CELLS COUNTED % (AUTO) 100 %; WHITE BLOOD COUNT 9.6 10^3/uL (4.0-10.5)
[2018-07-25 15:53] LABS: ALANINE AMINOTRANSFERASE 27 U/L (21-72); ALBUMIN 3.1 g/dL (3.5-5.0); ALKALINE PHOSPHATASE 58 U/L (38-126); ANION GAP 7 (5-19); ASPARTATE AMINO TRANSFERASE 24 U/L (17-59); BILIRUBIN,DIRECT 0.2 mg/dL (0.0-0.4); BILIRUBIN,TOTAL 0.2 mg/dL (0.2-1.3); BLOOD UREA NITROGEN 9 mg/dL (7-20); CALCIUM 9.5 mg/dL (8.4-10.2); CARBON DIOXIDE 28 mmol/L (22-30); CHLORIDE 106 mmol/L (98-107); GLUCOSE 55 mg/dL (75-110); POTASSIUM 4.2 mmol/L (3.6-5.0); SODIUM 140.6 mmol/L (137-145); TOTAL PROTEIN 6.1 g/dL (6.3-8.2)
--- NOTE | 2018-07-25 16:01 | RADIOLOGY REPORT (SQ) ---
EXAM DESCRIPTION: CT LTD RENAL STONE PROTOCOL ON COMPLETED DATE/TIME: 07/25/2018 3:49 pm REASON FOR STUDY: right flank pain COMPARISON: None. TECHNIQUE: CT scan of the abdomen and pelvis performed without intravenous or oral contrast. Images reviewed with lung, soft tissue, and bone windows. Reconstructed coronal and sagittal MPR images revi ewed. All images stored on PACS. All CT scanners at this facility use dose modulation, iterative reconstruction, and/or weight based d osing when appropriate to reduce radiation dose to as low as reasonably achievable (ALARA). [facility]: Dose Right [facility]: CareDose [facility]: Dose Right [facility]: Teradose 4D [facility]: [id number] RADIATION DOSE: CT Rad equipment meets quality standard of care and radiation dose reduction techniq ues were employed. CTDIvol: 10.4 mGy. DLP: 550 mGy-cm.mGy. LIMITATIONS: None. FINDINGS: LOWER CHEST: No significant findings. No nodules or infiltrates. NON-CONTRASTED LIVER, SPLEEN, ADRENALS: Evaluation limited by lack of IV contrast. No identified sign ificant masses. PANCREAS: No masses. No peripancreatic inflammatory changes. GALLBLADDER: Surgically absent RIGHT KIDNEY AND URETER: No suspicious masses. Assessment limited by lack of IV contrast. No signif icant calcifications. No hydronephrosis or hydroureter. LEFT KIDNEY AND URETER: No suspicious masses. Assessment limited by lack of IV contrast. No signifi cant calcifications. No hydronephrosis or hydroureter. AORTA AND RETROPERITONEUM: No aneurysm. No retroperitoneal masses or adenopathy. BOWEL AND PERITONEAL CAVITY: Post gastric bypass. No obvious masses or inflammatory changes. No free fluid. APPENDIX: Normal. PELVIS, BLADDER, AND ABDOMINAL WALL:No abnormal masses. No free fluid. Bladder drained by a suprapubi c catheter. BONES: No significant findings. OTHER: No other significant finding. IMPRESSION: NO SIGNIFICANT OR ACUTE PROCESS IN THE ABDOMEN OR PELVIS. COMMENT: Quality ID # [id number]: Final reports with documentation of one or more dose reduction techniques (e.g., Automated exposure control, adjustment of the mA and/or kV according to patient size, use of iterative reconstruction technique) TECHNICAL DOCUMENTATION: JOB ID: [id number] [employer] [place]- All Rights Reserved Reading location - IP/workstation name: [facility]
[2018-07-25 16:31] LABS: APPEARANCE,URINE TURBID; BILIRUBIN,URINE NEGATIVE (NEGATIVE); COLOR,URINE YELLOW; GLUCOSE, URINE NEGATIVE (NEGATIVE); KETONES,URINE NEGATIVE (NEGATIVE); LEUKOCYTE ESTERASE,URINE LARGE (NEGATIVE); NITRITE,URINE NEGATIVE (NEGATIVE); PROTEIN,URINE 100 mg/dL (NEGATIVE); URINE SPECIFIC GRAVITY 1.013
[2018-07-25] MEDS ORDERED: LIDOCAINE 1% INJ-PF (10 MG/ML) 30 ML SDV INJ ONE (16:48)
[2018-07-25] MEDS ORDERED: CEFTRIAXONE INJ 1000 MG VIAL IM ONE (17:07)
[2018-07-25 17:25] VITALS: BP 126/78
== END 2018-07-25 17:25 | disposition home or self-care (01) ==
LOC: ER 14:33
DX: N10 Acute pyelonephritis (principal); R10.9 Unspecified abdominal pain; Z87.442 Personal history of urinary calculi
CPT/HCPCS: 99284; 96372; 36415; 87086; 85025; 87088; 80053; 81001; 87186; 76380; A9270 ×2; J0696; S0119

== ENCOUNTER 2018-07-26 19:08 | Inpatient (IN) | payer MEDICARE ==
[2018-07-26] MEDS ORDERED: ACETAMINOPHEN 325 MG TABLET PO ONE (20:12)
--- NOTE | 2018-07-26 20:26 | ER Document Report ---
ED GI/ - General Chief Complaint: Flank Pain Stated Complaint: FLANK PAIN Time Seen by Provider: 07/26/18 19:44 Mode of Arrival: Medic Information source: Patient Notes: 47-year-old male presents to ED for complaint of right flank pain and UTI. States he has a chronic UTI and was started on Levaquin yesterday. States that he has been here multiple times for this UTI and nothing seems to fix the UTI. He states he is having 5 out of 5 pain in the right flank. When he was in the room for about 15 minutes he started screaming because he did not have anybody come in and talk to him and take care of him. He stated that he urinated all over the bed in floor because nobody had been in in tended to him as yet. Patient has a suprapubic catheter with a leg bag. TRAVEL OUTSIDE OF THE [place] IN LAST 30 DAYS: No - HPI Patient complains to provider of: Flank pain - Right Onset: Other - Chronic Timing/Duration: Persistent Quality of pain: Sharp Severity at maximum: Severe Severity in ED: Severe, None Pain Level: 5 Associated symptoms: Other - Right flank pain with chronic UTI. Patient has a suprapubic catheter Exacerbated by: Movement Relieved by: Denies Similar symptoms previously: Yes Recently seen / treated by doctor: Yes - Related Data Allergies/Adverse Reactions: No Known Allergies Allergy (Verified 07/25/18 14:33) Past Medical History - General Information source: Patient - Social History Smoking Status: Never Smoker Cigarette use (# per day): No Chew tobacco use (# tins/day): No Smoking Education Provided: No Frequency of alcohol use: None Drug Abuse: None Family History: Reviewed & Not Pertinent Patient has suicidal ideation: No Patient has homicidal ideation: No - Past Medical History Cardiac Medical History: Reports: None Pulmonary Medical History: Reports: None EENT Medical History: Reports: None Neurological Medical History: Reports: None Endocrine Medical History: Reports: None Renal/ Medical History: Reports: Hx Kidney Stones Malignancy Medical History: Reports None GI Medical History: Reports: None Musculoskeletal Medical History: Reports None Skin Medical History: Reports None Psychiatric Medical History: Reports: Hx Bipolar Disorder, Hx Borderline Personality Disorder Traumatic Medical History: Reports: None Infectious Medical History: Reports: None Past Surgical History: Reports: Hx Abdominal Surgery - suprapubic catheter, Hx Cholecystectomy - Immunizations Immunizations up to date: Yes Review of Systems - Review of Systems Constitutional: No symptoms reported EENT: No symptoms reported Cardiovascular: No symptoms reported Respiratory: No symptoms reported Gastrointestinal: No symptoms reported Genitourinary: Flank pain Male Genitourinary: No symptoms reported Musculoskeletal: No symptoms reported Skin: No symptoms reported Hematologic/Lymphatic: No symptoms reported Neurological/Psychological: No symptoms reported -: Yes All other systems reviewed and negative Physical Exam - Vital signs Vitals: Temp Pulse Resp BP Pulse Ox 98.2 F 100 16 105/58 L 97 07/26/18 19:17 07/26/18 19:17 07/26/18 19:17 07/26/18 19:17 07/26/18 19:17 Interpretation: Normal - General General appearance: Appears well, Alert - HEENT Head: Normocephalic, Atraumatic Eyes: Normal Pupils: PERRL - Respiratory Respiratory status: No respiratory distress Chest status: Nontender Breath sounds: Normal Chest palpation: Normal - Cardiovascular Rhythm: Regular Heart sounds: Normal auscultation Murmur: No - Abdominal Inspection: Normal Distension: No distension Bowel sounds: Normal Tenderness: Nontender Organomegaly: No organomegaly - Back Back: Normal, Nontender - Extremities General upper extremity: Normal inspection, Nontender, Normal color, Normal ROM , Normal temperature General lower extremity: Normal inspection, Nontender, Normal color, Normal ROM , Normal temperature, Normal weight bearing. No: Martin's sign - Neurological Neuro grossly intact: Yes Cognition: Normal Orientation: AAOx4 [place] Coma Scale Eye Opening: Spontaneous [place] Coma Scale Verbal: Oriented [place] Coma Scale Motor: Obeys Commands [place] Coma Scale Total: 15 Speech: Normal Motor strength normal: LUE, RUE, LLE, RLE Sensory: Normal - Psychological Associated symptoms: Aggressive, Agitated, Angry, Other - After Jon is a psych worker spoke with him he became calmer and settled down on his bed and quit yelling and screaming and cursing. - Skin Skin Temperature: Warm Skin Moisture: Dry Skin Color: Normal Course - Re-evaluation Re-evalutation: 07/26/18 22:[address] Penn for his bizarre behavior and his constant request for pain medications. She stated that I should treat his pain with Tylenol or Motrin and get a blood culture and lactic acid due to his increase in pulse from yesterday and decrease in blood pressure from yesterday. Patient's temperature is still only 98.2. Lactic acid and blood cultures were drawn patient was treated with Tylenol. When the lactic acid returned consulted Dr. Vines for his lactic acid of 3.9 with his blood pressure of 105/58 and pulse 100 Temp 98.2.. He recommended patient be started him on ceftriaxone and have him be admitted. Blood cultures were drawn and Ringer's lactate was started. Patient was medicated with the Depakote for his low Depakote levels. Dr. Olivo was consulted he has accepted the admission to telemetry. - Vital Signs Vital signs: Temp Pulse Resp BP Pulse Ox 98.2 F 100 16 105/58 L 97 07/26/18 19:17 07/26/18 19:17 07/26/18 19:17 07/26/18 19:17 07/26/18 19:17 - Laboratory Result Diagrams: 07/26/18 20:00 07/26/18 20:00 Laboratory results interpreted by me: 07/26/18 07/26/18 07/26/18 20:00 20:00 20:55 WBC 11.6 H Hgb 11.2 L Hct 35.7 L MCV 79 L MCH 24.7 L MCHC 31.3 L RDW 19.5 H Seg Neutrophils % 79.4 H Lymphocytes % 10.5 L Absolute Neutrophils 9.2 H Carbon Dioxide 32 H Lactic Acid Albumin 3.3 L Urine Glucose (UA) >=500 H Ur Leukocyte Esterase MODERATE H Urine Ascorbic Acid 20 H Valproic Acid 30.3 L 07/26/18 21:05 WBC Hgb Hct MCV MCH MCHC RDW Seg Neutrophils % Lymphocytes % Absolute Neutrophils Carbon Dioxide Lactic Acid 3.9 H Albumin Urine Glucose (UA) Ur Leukocyte Esterase Urine Ascorbic Acid Valproic Acid Discharge - Discharge Clinical Impression: Pyelonephritis Sepsis Qualifiers: Sepsis type: Escherichia coli Qualified Code(s): A41.51 - Sepsis due to Escherichia coli [E. coli] Disposition: ADMITTED INPATIENT Admitting Provider: Sarwat olivo Unit Admitted: Telemetry
[2018-07-26 20:28] LABS: ABSOLUTE BASOPHILS # (AUTO) 0.1 10^3/uL (0.0-0.2); ABSOLUTE EOSINOPHILS # (AUTO) 0.1 10^3/uL (0.0-0.6); ABSOLUTE LYMPHOCYTES (AUTO) 1.2 10^3/uL (0.5-4.7); ABSOLUTE NEUT (AUTO) 9.2 10^3/uL (1.7-8.2); BASOPHILS % (AUTO) 0.8 % (0-2); EOSINOPHILS % (AUTO) 0.8 % (0-6); HEMATOCRIT 35.7 % (37.9-51.0); HEMOGLOBIN 11.2 g/dL (13.5-17.0); LYMPHOCYTES % (AUTO) 10.5 % (13-45); MEAN CORPUSCULAR HEMOGLOBIN 24.7 pg (27.0-33.4); MEAN CORPUSCULAR HGB CONC 31.3 g/dL (32.0-36.0); MEAN CORPUSCULAR VOLUME 79 fl (80-97); MONOCYTES % (AUTO) 8.5 % (3-13); PLATELET COUNT 421 10^3/uL (150-450); RED BLOOD COUNT 4.52 10^6/uL (4.35-5.55); RED CELL DISTRIBUTION WIDTH 19.5 % (11.5-14.0); SEGMENTED NEUTROPHILS % (AUTO) 79.4 % (42-78); TOTAL CELLS COUNTED % (AUTO) 100 %; WHITE BLOOD COUNT 11.6 10^3/uL (4.0-10.5)
[2018-07-26 20:45] LABS: ALANINE AMINOTRANSFERASE 28 U/L (21-72); ALBUMIN 3.3 g/dL (3.5-5.0); ALKALINE PHOSPHATASE 61 U/L (38-126); ASPARTATE AMINO TRANSFERASE 23 U/L (17-59); BILIRUBIN,DIRECT 0.4 mg/dL (0.0-0.4); BILIRUBIN,TOTAL 0.4 mg/dL (0.2-1.3); BLOOD UREA NITROGEN 15 mg/dL (7-20); CALCIUM 9.8 mg/dL (8.4-10.2); GLUCOSE 90 mg/dL (75-110); POTASSIUM 4.4 mmol/L (3.6-5.0); TOTAL PROTEIN 6.4 g/dL (6.3-8.2)
[2018-07-26 20:50] LABS: ANION GAP 6 (5-19); CARBON DIOXIDE 32 mmol/L (22-30); CHLORIDE 100 mmol/L (98-107); SODIUM 137.7 mmol/L (137-145)
[2018-07-26] MEDS ORDERED: KETOROLAC TROMETHAMINE 60 MG/2 ML SDV IM ONE (20:57)
[2018-07-26] MEDS ORDERED: VALPROATE SODIUM SYRUP 250 MG/5 ML UDCUP PO ONE (21:27)
[2018-07-26 21:40] LABS: APPEARANCE,URINE SLIGHTLY-CLOUDY; BILIRUBIN,URINE NEGATIVE (NEGATIVE); COLOR,URINE YELLOW; GLUCOSE, URINE >=500 mg/dL (NEGATIVE); KETONES,URINE NEGATIVE (NEGATIVE); LEUKOCYTE ESTERASE,URINE MODERATE (NEGATIVE); NITRITE,URINE NEGATIVE (NEGATIVE); PROTEIN,URINE NEGATIVE (NEGATIVE); URINE SPECIFIC GRAVITY 1.014; UROBILINOGEN,URINE NEGATIVE mg/dL (<2.0)
[2018-07-26] MEDS ORDERED: CEFTRIAXONE 2 GM/D5W RTU 2 GM/50 ML RTUPB IV ONE (21:52)
[2018-07-26] MEDS ORDERED: IPRATROPIUM/ALBUTEROL 0.5-2.5 MG/3 ML AMPUL NEB PRN (22:03)
[2018-07-26] MEDS ORDERED: MAG HYDROX/AL HYDROX/SIMETH SUSP 30 ML UDCUP PO PRN (22:03)
[2018-07-26] MEDS ORDERED: ACETAMINOPHEN 325 MG TABLET PO PRN (22:03)
[2018-07-26] MEDS: RINGERS SOLUTION,LACTATED 1,000 ML IV PRN ×2 (22:07→22:08)
[2018-07-26] MEDS ORDERED: NORMAL SALINE 1000 ML 1,000 ML IV SCH (22:15)
[2018-07-26] MEDS ORDERED: (PENDING PHARMACY ID) (Valproic Acid [Depakene] 500 MG) PO SCH (22:15)
[2018-07-26] MEDS ORDERED: ARIPIPRAZOLE 5 MG TABLET PO ONE (22:30)
[2018-07-26] MEDS ORDERED: CEFTRIAXONE SODIUM 2,000 MG in NORMAL SALINE 100 ML IV ONE (22:30)
[2018-07-27] MEDS ORDERED: LITHIUM CARBONATE 300 MG CAPSULE PO ONE ×2 (00:13→00:45)
[2018-07-27] MEDS ORDERED: KETOROLAC TROMETHAMINE INJ/PF 30 MG/1 ML SDV IV ONE (01:05)
[2018-07-27] MEDS ORDERED: GENTAMICIN SULFATE 120 MG in DEXTROSE 5%-WATER 100 ML IV ONE (01:08)
[2018-07-27] MEDS ORDERED: GENTAMICIN SULFATE 0 MG in DEXTROSE 5%-WATER 100 ML IV NR (01:15)
[2018-07-27] MEDS ORDERED: BACLOFEN 10 MG TABLET PO PRN (01:41)
[2018-07-27] MEDS: TEMAZEPAM 15 MG CAPSULE PO PRN ×2 (02:41→20:17)
[2018-07-27] MEDS ORDERED: RISPERIDONE 1 MG TABLET ONE (02:57)
[2018-07-27] MEDS: GENTAMICIN SULFATE 180 MG in DEXTROSE 5%-WATER 100 ML IV SCH ×2 (04:02→14:04)
--- NOTE | 2018-07-27 04:53 | PDOC H&P ---
History of Present Illness Admission Date/PCP: 07/26/18 22:07 Patient complains of: Flank pain History of Present Illness: TONY CORTEZ is a 47 year old male with a past medical history of chronic back pain, recurrent UTI, permanent indwelling suprapubic catheter, bipolar with frequently decompensated laurel. Presents with uncontrolled right-sided flank pain. Patient presented several times in the last week with the same complaints urine cultures have revealed ESBL Klebsiella and E. coli sensitive to gentamicin and imipenem. Patient is with leukocytosis and severe agitation threatening multiple members of staff and himself with injury or killing. He is referred to the hospitalist for admission. He receives Abilify, Risperdal, Restoril and lithium resulting in sedation and calm affect without threats. He denies missing any regular medications or recent antibiotics Past Medical History Cardiac Medical History: Reports: None Pulmonary Medical History: Reports: None EENT Medical History: Reports: None Neurological Medical History: Reports: None Endocrine Medical History: Reports: None Malignancy Medical History: Reports: None GI Medical History: Reports: None Musculoskeltal Medical History: Reports: None Skin Medical History: Reports: None Psychiatric Medical History: Reports: Bipolar Disorder Traumatic Medical History: Reports: None Infectious Medical History: Reports: None Past Surgical History Past Surgical History: Reports: Cholecystectomy Social History Information Source: Patient Smoking Status: Never Smoker Frequency of Alcohol Use: Occasional - Advance Directive Resuscitation Status: Full Code Family History Family History: Hypertension Parental Family History Reviewed: Yes Children Family History Reviewed: Yes Sibling(s) Family History Reviewed.: Yes Medication/Allergy Home Medications: [place] Carbonate 300 mg PO QAM #14 tablet 07/17/18 Baclofen [Baclofen 10 mg Tablet] 10 mg PO Q6HP PRN 07/26/18 Doxycycline Hyclate 100 mg PO Q12 07/26/18 Oxycodone HCl/Acetaminophen [Oxycodone-Acetaminophen 10-325] 1 each PO Q8 Risperidone [Risperdal 1 mg Tablet] 1 mg PO Q12 07/26/18 Ropinirole HCl [Requip] 1 mg PO Q12 07/26/18 Temazepam [Restoril 15 mg Capsule] 15 mg PO HSP PRN 07/26/18 Valproic Acid [Depakene] 250 mg PO Q12 07/26/18 Allergies/Adverse Reactions: No Known Allergies Allergy (Verified 07/25/18 14:33) Review of Systems ROS unobtainable: Due to mental status Physical Exam Vital Signs: Temp Pulse Resp BP Pulse Ox 98.2 F 100 22 H 130/86 H 97 07/26/18 19:17 07/26/18 19:17 07/27/18 04:00 07/27/18 01:02 07/27/18 04:00 Intake & Output 07/25/18 07/26/18 07/27/18 11:59 11:59 11:59 Intake Total 1800 Output Total 1500 Balance 300 General appearance: PRESENT: cooperative, disheveled, other - Sedated Head exam: PRESENT: atraumatic, normocephalic Eye exam: PRESENT: conjunctiva pink, EOMI, PERRLA. ABSENT: scleral icterus Ear exam: PRESENT: normal external ear exam Mouth exam: PRESENT: moist, tongue midline Neck exam: ABSENT: carotid bruit, JVD, lymphadenopathy, thyromegaly Respiratory exam: PRESENT: clear to auscultation samia. ABSENT: rales, rhonchi, wheezes Cardiovascular exam: PRESENT: RRR. ABSENT: diastolic murmur, rubs, systolic murmur Pulses: PRESENT: normal dorsalis pedis pul Vascular exam: PRESENT: normal capillary refill GI/Abdominal exam: PRESENT: normal bowel sounds, soft. ABSENT: distended, guarding, mass, organolmegaly, rebound, tenderness Rectal exam: PRESENT: deferred Extremities exam: PRESENT: full ROM. ABSENT: calf tenderness, clubbing, pedal edema Musculoskeletal exam: PRESENT: other - Flank pain in addition to pain with palpation to the paraspinal muscles Neurological exam: PRESENT: alert, altered, awake, oriented to person, oriented to place, oriented to situation, CN II-XII grossly intact. ABSENT: motor sensory deficit Psychiatric exam: PRESENT: agitated, homicidal ideation, suicidal ideation Skin exam: PRESENT: dry, intact, warm. ABSENT: cyanosis, rash Results Laboratory Results: 07/27/18 01:02 Lactic Acid 0.9 Assessment & Plan - Diagnosis (1) Infection due to ESBL-producing Klebsiella pneumoniae Is this a current diagnosis for this admission?: Yes Plan: Imipenem and gentamicin ordered, follow-up CBC and blood culture (2) Bipolar affective disorder, currently manic, severe, with psychotic features Is this a current diagnosis for this admission?: Yes Plan: Suspect noncompliance with lithium and outpatient regiment. Continue lithium, Risperdal, Abilify, IV seed for suicidal ideation and homicidal ideation, follow -up mental health consult (3) Pyelonephritis Is this a current diagnosis for this admission?: Yes Plan: Secondary to ESBL E. coli and Klebsiella pneumonia, follow-up blood culture - Time Time Spent: 50 to 70 Minutes - Inpatient Certification Medical Necessity: Need Close Monitoring Due to Risk of Patient Decompensation
[2018-07-27 05:30] LABS: ABSOLUTE BASOPHILS # (AUTO) 0.1 10^3/uL (0.0-0.2); ABSOLUTE EOSINOPHILS # (AUTO) 0.2 10^3/uL (0.0-0.6); ABSOLUTE LYMPHOCYTES (AUTO) 1.5 10^3/uL (0.5-4.7); ABSOLUTE MONOCYTES (AUTO) 0.9 10^3/uL (0.1-1.4); ABSOLUTE NEUT (AUTO) 5.3 10^3/uL (1.7-8.2); BASOPHILS % (AUTO) 0.9 % (0-2); HEMATOCRIT 34.9 % (37.9-51.0); HEMOGLOBIN 11.3 g/dL (13.5-17.0); LYMPHOCYTES % (AUTO) 18.5 % (13-45); MEAN CORPUSCULAR HEMOGLOBIN 25.1 pg (27.0-33.4); MEAN CORPUSCULAR HGB CONC 32.3 g/dL (32.0-36.0); MEAN CORPUSCULAR VOLUME 78 fl (80-97); MONOCYTES % (AUTO) 10.9 % (3-13); PLATELET COUNT 355 10^3/uL (150-450); RED BLOOD COUNT 4.51 10^6/uL (4.35-5.55); RED CELL DISTRIBUTION WIDTH 19.3 % (11.5-14.0); SEGMENTED NEUTROPHILS % (AUTO) 67.7 % (42-78); TOTAL CELLS COUNTED % (AUTO) 100 %; WHITE BLOOD COUNT 7.9 10^3/uL (4.0-10.5)
[2018-07-27] MEDS: IMIPENEM/CILASTATIN SODIUM 1,000 MG in NORMAL SALINE 250 ML IV SCH ×3 (05:57→17:38)
[2018-07-27 06:03] LABS: ANION GAP 5 (5-19); BLOOD UREA NITROGEN 12 mg/dL (7-20); CALCIUM 9.5 mg/dL (8.4-10.2); CARBON DIOXIDE 28 mmol/L (22-30); CHLORIDE 106 mmol/L (98-107); GLUCOSE 122 mg/dL (75-110); SODIUM 139.1 mmol/L (137-145)
[2018-07-27] MEDS: HEPARIN SOD (PORCINE) 5,000 UNIT/ML 1 ML SYRINGE SUBCUT SCH ×3 (06:28→21:46)
[2018-07-27] MEDS ORDERED: (PENDING PHARMACY ID) (Lithium Carbonate [Lithium Carbonate] 300 MG) PO SCH (08:00)
[2018-07-27] MEDS: KETOROLAC TROMETHAMINE INJ/PF 30 MG/1 ML SDV IV PRN ×2 (08:13→14:20)
--- NOTE | 2018-07-27 09:00 | PSYCHOLOGICAL NOTE ---
Psych Note - Psych Note Psych Note: Reason for Consult: Manic Patient presented to [facility] ED on 07/26/2018 for UTI symptoms with his dog ( Patient states it is his service dog that is "duel trained" as a police dog and service dog. Clinician had to intervene when patient became agitated; patient was yelling and cussing at nurse. Patient immediately calmed when speaking with clinician. Patient disclosed he has been taking his medications. He reports he is in pain from the UTI that has not cleared up. 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 Patient is alert and orientated to person, place, time and circumstance. Mood is irritable with congruent affect. patient denies suicidal and homicidal ideation. Delusions of grandeur are noted with slight flight of thought. It is noted the patient's irritably and behavioral outbursts are baseline. Conversational speech was within normal rate, tone and prosody. Eye contact was well maintained. Intellectually abilities appear to be average range. Attention and concentration are fair. Insight, judgment and impulse control are historically poor. Medication recommendations per [facility]'s contracted psychiatrist Dr Ирина VARGAS are as follows Depakene 500 mg twice daily [place] 300mg every morning Cogentin 1 mg twice daily Diagnosis 296.44 (F31.2) Biploar 1 disorder,manic with psychotic features Impression/Plan:Patient is cleared from acute psychiatric services. This patient is well known to this clinician and department (for history of this patient please see previous visits). Patient is presenting at baseline with delusions of grandeur and at times flight of thought. Patient is historically noncompliant with medications. Blood screening indicates the patient is subtheraputic on his Depakote. It is recommended to provide Depakene instead of Depakote to ensure the patient is not cheeking the pills. With the patient being able to control his emotions and calm himself upon clinician's entry to the room, it demonstrates and supports it is behavioral. Dr. Fried was consult on the care and management of this patient; attending physician is in agreement with recommendations and disposition.
[2018-07-27] MEDS: VALPROATE SODIUM SYRUP 250 MG/5 ML UDCUP PO SCH ×2 (09:22→20:17)
[2018-07-27] MEDS: RISPERIDONE 1 MG TABLET PO SCH ×2 (09:22→20:17)
[2018-07-27] MEDS: ARIPIPRAZOLE 5 MG TABLET PO SCH (09:22)
[2018-07-27] MEDS: DOCUSATE SODIUM 100 MG CAPSULE PO SCH ×2 (09:22→17:39)
[2018-07-27] MEDS ORDERED: VALPROATE SODIUM SYRUP 250 MG/5 ML UDCUP PO SCH (10:00)
[2018-07-27] MEDS: OXYCODONE HCL IR 5 MG TABLET PO SCH ×2 (10:55→17:39)
[2018-07-27] MEDS: LITHIUM CARBONATE 300 MG CAPSULE PO SCH (10:55)
[2018-07-27] MEDS: OXYCODONE-ACETAMINOPHEN 5-325 MG TABLET PO SCH ×2 (10:56→17:38)
--- NOTE | 2018-07-27 13:23 | PDOC PROGRESS REPORT ---
Subjective Progress Note for:: 07/27/18 Subjective:: 47-year-old white male with a history of transverse myelitis secondary to a flu shot. Patient has a suprapubic catheter and frequent UTIs as a result. He presents with sepsis UTI and pyelonephritis. His behavior was consistent with manic episode of his bipolar disease. He has been seen by psychiatry and his medications have been reinitiated.Patient complaining of pain from his infection I have been able to confirm that patient is on scheduled oxycodone at home based on his prescriber database information.Patient is in bed not agitated as somewhat tangential conversation and bounces from one topic to another. Reason For Visit: SEPSIS ESBL PYELONEPHRITIS SCHIZOPHRENIA Physical Exam Vital Signs: Temp Pulse Resp BP Pulse Ox 98.9 F 93 16 109/72 97 07/27/18 07:43 07/27/18 13:05 07/27/18 13:05 07/27/18 07:43 07/27/18 13:05 Intake & Output 07/26/18 07/27/18 07/28/18 06:59 06:59 06:59 Intake Total 1800 354.5 Output Total 1500 Balance 300 354.5 Weight 95.7 kg General appearance: PRESENT: no acute distress, well-developed, well-nourished Head exam: PRESENT: atraumatic, normocephalic Neck exam: ABSENT: carotid bruit, JVD, lymphadenopathy, thyromegaly Respiratory exam: PRESENT: clear to auscultation samia. ABSENT: rales, rhonchi, wheezes Cardiovascular exam: PRESENT: RRR. ABSENT: diastolic murmur, rubs, systolic murmur GI/Abdominal exam: PRESENT: normal bowel sounds, soft, other - Suprapubic cath in place. ABSENT: distended, guarding, mass, organolmegaly, rebound, tenderness Musculoskeletal exam: PRESENT: ambulatory Neurological exam: PRESENT: alert, awake, oriented to person, oriented to place , oriented to time, oriented to situation, motor sensory deficit - Due to transverse myelitis Psychiatric exam: PRESENT: other - Rapid speech somewhat manic in nature. ABSENT: suicidal ideation Focused psych exam: PRESENT: flight of ideas, restlessness Results Laboratory Results: 07/27/18 05:10 07/27/18 05:10 07/27/18 07/27/18 07/27/18 01:02 05:10 05:10 WBC 7.9 RBC 4.51 Hgb 11.3 L Hct 34.9 L MCV 78 L MCH 25.1 L MCHC 32.3 RDW 19.3 H Plt Count 355 Seg Neutrophils % 67.7 Lymphocytes % 18.5 Monocytes % 10.9 Eosinophils % 2.0 Basophils % 0.9 Absolute Neutrophils 5.3 Absolute Lymphocytes 1.5 Absolute Monocytes 0.9 Absolute Eosinophils 0.2 Absolute Basophils 0.1 Sodium 139.1 Potassium 4.0 Chloride 106 Carbon Dioxide 28 Anion Gap 5 BUN 12 Creatinine 0.77 Est GFR ( Amer) > 60 Est GFR (Non-Af Amer) > 60 Glucose 122 H Lactic Acid 0.9 Calcium 9.5 Assessment & Plan - Diagnosis (1) Infection due to ESBL-producing Klebsiella pneumoniae Is this a current diagnosis for this admission?: Yes Plan: Culture pending prior infections of E. coli and Klebsiella noted to be ES BL. On ertapenem and gentamicin which covers both prior positive cultures. Will adjust antibiotics when present culture available. (2) Pyelonephritis Is this a current diagnosis for this admission?: Yes Plan: Right flank pain consistent with pyelonephritis improved today. Will initiate patient's outpatient opioids but will not accelerate his schedule due to history of opioid dependency in the past. Continue hydration and antibiotics as ordered. (3) Sepsis Qualifiers: Sepsis type: Escherichia coli Qualified Code(s): A41.51 - Sepsis due to Escherichia coli [E. coli] Is this a current diagnosis for this admission?: Yes Plan: Resolved (4) Acute UTI (urinary tract infection) Is this a current diagnosis for this admission?: Yes Plan: Chronic indwelling Vo catheter with positive cultures in the past of both E. coli and Klebsiella pneumoniae. Current antibiotics cover these prior pathogens urine culture pending (5) Bipolar affective disorder, currently manic, severe, with psychotic features Is this a current diagnosis for this admission?: Yes Plan: Psychiatric evaluation appreciated medication changes implemented continue to monitor patient's behavioral aspects. - Time Time Spent with patient: 25-34 minutes Medications reviewed and adjusted accordingly: Yes - Inpatient Certification Medical Necessity: Need For IV Fluids, Need for IV Antibiotics Post Hospital Care: D/C Educational Aid Documentation
[2018-07-28] MEDS: OXYCODONE HCL IR 5 MG TABLET PO SCH ×3 (02:02→17:12)
[2018-07-28] MEDS: IMIPENEM/CILASTATIN SODIUM 1,000 MG in NORMAL SALINE 250 ML IV SCH ×4 (02:03→17:09)
[2018-07-28] MEDS: OXYCODONE-ACETAMINOPHEN 5-325 MG TABLET PO SCH ×3 (02:03→17:13)
[2018-07-28] MEDS: GENTAMICIN SULFATE 180 MG in DEXTROSE 5%-WATER 100 ML IV SCH ×2 (03:47→15:25)
[2018-07-28] MEDS: HEPARIN SOD (PORCINE) 5,000 UNIT/ML 1 ML SYRINGE SUBCUT SCH ×2 (05:14→13:16)
[2018-07-28] MEDS: LITHIUM CARBONATE 300 MG CAPSULE PO SCH (09:18)
[2018-07-28] MEDS: ARIPIPRAZOLE 5 MG TABLET PO SCH (09:18)
[2018-07-28] MEDS: RISPERIDONE 1 MG TABLET PO SCH (09:18)
[2018-07-28] MEDS: VALPROATE SODIUM SYRUP 250 MG/5 ML UDCUP PO SCH (09:18)
[2018-07-28] MEDS: DOCUSATE SODIUM 100 MG CAPSULE PO SCH ×2 (09:18→17:13)
[2018-07-28 10:25] LABS: ABSOLUTE BASOPHILS # (AUTO) 0.1 10^3/uL (0.0-0.2); ABSOLUTE EOSINOPHILS # (AUTO) 0.2 10^3/uL (0.0-0.6); ABSOLUTE MONOCYTES (AUTO) 0.5 10^3/uL (0.1-1.4); BASOPHILS % (AUTO) 1.2 % (0-2); EOSINOPHILS % (AUTO) 3.4 % (0-6); HEMATOCRIT 37.1 % (37.9-51.0); HEMOGLOBIN 11.8 g/dL (13.5-17.0); LYMPHOCYTES % (AUTO) 17.4 % (13-45); MEAN CORPUSCULAR HEMOGLOBIN 24.9 pg (27.0-33.4); MEAN CORPUSCULAR HGB CONC 31.8 g/dL (32.0-36.0); MEAN CORPUSCULAR VOLUME 78 fl (80-97); PLATELET COUNT 283 10^3/uL (150-450); RED BLOOD COUNT 4.74 10^6/uL (4.35-5.55); RED CELL DISTRIBUTION WIDTH 19.9 % (11.5-14.0); TOTAL CELLS COUNTED % (AUTO) 100 %; WHITE BLOOD COUNT 5.7 10^3/uL (4.0-10.5)
[2018-07-28 10:39] LABS: ANION GAP 5 (5-19); BLOOD UREA NITROGEN 6 mg/dL (7-20); CALCIUM 9.2 mg/dL (8.4-10.2); CARBON DIOXIDE 29 mmol/L (22-30); CHLORIDE 102 mmol/L (98-107); GLUCOSE 164 mg/dL (75-110); POTASSIUM 4.4 mmol/L (3.6-5.0)
[2018-07-28] MEDS: KETOROLAC TROMETHAMINE INJ/PF 30 MG/1 ML SDV IV PRN (13:16)
--- NOTE | 2018-07-28 13:55 | PDOC PROGRESS REPORT ---
Subjective Progress Note for:: 07/28/18 Subjective:: 47-year-old white male with a history of transverse myelitis secondary to a flu shot. Patient has a suprapubic catheter and frequent UTIs as a result. He presents with sepsis UTI and pyelonephritis. His behavior was consistent with manic episode of his bipolar disease. He has been seen by psychiatry and his medications have been reinitiated.Patient complaining of pain from his infection I have been able to confirm that patient is on scheduled oxycodone at home based on his prescriber database information.Patient is in bed not agitated as somewhat tangential conversation and bounces from one topic to another. Urinalysis apparently was not cultured from the emergency room prior to starting antibiotics. Patient clinically improved pain control tolerating meals no new complaints. Reason For Visit: SEPSIS ESBL PYELONEPHRITIS SCHIZOPHRENIA Physical Exam Vital Signs: Temp Pulse Resp BP Pulse Ox 98.1 F 88 18 131/74 H 100 07/28/18 11:27 07/28/18 11:39 07/28/18 11:39 07/28/18 11:27 07/28/18 11:39 Intake & Output 07/27/18 07/28/18 07/29/18 06:59 06:59 06:59 Intake Total 1800 1630.5 250 Output Total 1500 3675 Balance 300 -2044.5 250 Weight 95.7 kg 101.5 kg General appearance: PRESENT: no acute distress, well-developed, well-nourished Head exam: PRESENT: atraumatic, normocephalic Neck exam: ABSENT: carotid bruit, JVD, lymphadenopathy, thyromegaly Respiratory exam: PRESENT: clear to auscultation samia. ABSENT: rales, rhonchi, wheezes Cardiovascular exam: PRESENT: RRR. ABSENT: diastolic murmur, rubs, systolic murmur Extremities exam: PRESENT: full ROM, pedal edema, other - Trace edema. ABSENT: calf tenderness, clubbing Musculoskeletal exam: ABSENT: deformity, tenderness Neurological exam: PRESENT: motor sensory deficit - Secondary to transverse myelitis Psychiatric exam: PRESENT: manic Results Laboratory Results: 07/28/18 09:52 07/28/18 09:52 07/28/18 07/28/18 09:52 09:52 WBC 5.7 RBC 4.74 Hgb 11.8 L Hct 37.1 L MCV 78 L MCH 24.9 L MCHC 31.8 L RDW 19.9 H Plt Count 283 Seg Neutrophils % 70.0 Lymphocytes % 17.4 Monocytes % 8.0 Eosinophils % 3.4 Basophils % 1.2 Absolute Neutrophils 4.0 Absolute Lymphocytes 1.0 Absolute Monocytes 0.5 Absolute Eosinophils 0.2 Absolute Basophils 0.1 Sodium 136.0 L Potassium 4.4 Chloride 102 Carbon Dioxide 29 Anion Gap 5 BUN 6 L Creatinine 0.72 Est GFR ( Amer) > 60 Est GFR (Non-Af Amer) > 60 Glucose 164 H Calcium 9.2 Assessment & Plan - Diagnosis (1) Infection due to ESBL-producing Klebsiella pneumoniae Is this a current diagnosis for this admission?: Yes Plan: Culture pending prior infections of E. coli and Klebsiella noted to be ES BL. On ertapenem and gentamicin which covers both prior positive cultures. Will adjust antibiotics when present culture available.We will send urine for culture despite antibiotic initiation. (2) Pyelonephritis Is this a current diagnosis for this admission?: Yes Plan: Right flank pain consistent with pyelonephritis improved today. Will initiate patient's outpatient opioids but will not accelerate his schedule due to history of opioid dependency in the past. Continue hydration and antibiotics as ordered.Less pain reported. Patient on home opioid therapy with adequate pain control. (3) Acute UTI (urinary tract infection) Is this a current diagnosis for this admission?: Yes Plan: Chronic indwelling Vo catheter with positive cultures in the past of both E. coli and Klebsiella pneumoniae. Current antibiotics cover these prior pathogens urine culture pending (4) Bipolar affective disorder, currently manic, severe, with psychotic features Is this a current diagnosis for this admission?: Yes Plan: Psychiatric evaluation appreciated medication changes implemented Patient has somewhat pressured speech still somewhat tangential and mildly manic but overall behavior controlled (5) Sepsis Qualifiers: Sepsis type: Escherichia coli Qualified Code(s): A41.51 - Sepsis due to Escherichia coli [E. coli] Is this a current diagnosis for this admission?: Yes
[2018-07-28 15:33] LABS: GENTAMICIN-TROUGH 0.8 ug/mL (<2.0)
[2018-07-29] MEDS: IMIPENEM/CILASTATIN SODIUM 1,000 MG in NORMAL SALINE 250 ML IV SCH ×5 (00:17→23:10)
[2018-07-29] MEDS: VALPROATE SODIUM SYRUP 250 MG/5 ML UDCUP PO SCH ×3 (00:17→23:09)
[2018-07-29] MEDS: HEPARIN SOD (PORCINE) 5,000 UNIT/ML 1 ML SYRINGE SUBCUT SCH ×4 (00:17→23:09)
[2018-07-29] MEDS: RISPERIDONE 1 MG TABLET PO SCH ×3 (00:17→23:10)
[2018-07-29] MEDS: OXYCODONE-ACETAMINOPHEN 5-325 MG TABLET PO SCH ×3 (02:43→17:11)
[2018-07-29] MEDS: OXYCODONE HCL IR 5 MG TABLET PO SCH ×3 (02:43→17:12)
[2018-07-29] MEDS: GENTAMICIN SULFATE 180 MG in DEXTROSE 5%-WATER 100 ML IV SCH ×2 (02:44→14:42)
[2018-07-29 05:45] LABS: ABSOLUTE EOSINOPHILS # (AUTO) 0.3 10^3/uL (0.0-0.6); ABSOLUTE LYMPHOCYTES (AUTO) 1.5 10^3/uL (0.5-4.7); ABSOLUTE MONOCYTES (AUTO) 0.5 10^3/uL (0.1-1.4); ABSOLUTE NEUT (AUTO) 4.6 10^3/uL (1.7-8.2); BASOPHILS % (AUTO) 0.6 % (0-2); EOSINOPHILS % (AUTO) 4.3 % (0-6); LYMPHOCYTES % (AUTO) 21.6 % (13-45); MEAN CORPUSCULAR HEMOGLOBIN 25.3 pg (27.0-33.4); MEAN CORPUSCULAR HGB CONC 31.7 g/dL (32.0-36.0); MEAN CORPUSCULAR VOLUME 80 fl (80-97); MONOCYTES % (AUTO) 6.8 % (3-13); PLATELET COUNT 368 10^3/uL (150-450); RED BLOOD COUNT 4.77 10^6/uL (4.35-5.55); RED CELL DISTRIBUTION WIDTH 19.1 % (11.5-14.0); SEGMENTED NEUTROPHILS % (AUTO) 66.7 % (42-78); TOTAL CELLS COUNTED % (AUTO) 100 %; WHITE BLOOD COUNT 6.9 10^3/uL (4.0-10.5)
[2018-07-29 06:19] LABS: ANION GAP 6 (5-19); BLOOD UREA NITROGEN 8 mg/dL (7-20); CALCIUM 9.7 mg/dL (8.4-10.2); CARBON DIOXIDE 30 mmol/L (22-30); CHLORIDE 101 mmol/L (98-107); GLUCOSE 122 mg/dL (75-110); POTASSIUM 4.6 mmol/L (3.6-5.0)
[2018-07-29] MEDS: KETOROLAC TROMETHAMINE INJ/PF 30 MG/1 ML SDV IV PRN ×2 (06:51→13:14)
[2018-07-29] MEDS: ARIPIPRAZOLE 5 MG TABLET PO SCH (09:11)
[2018-07-29] MEDS: DOCUSATE SODIUM 100 MG CAPSULE PO SCH ×2 (09:11→17:11)
[2018-07-29] MEDS: LITHIUM CARBONATE 300 MG CAPSULE PO SCH (09:12)
--- NOTE | 2018-07-29 15:49 | PDOC PROGRESS REPORT ---
Subjective Progress Note for:: 07/29/18 Subjective:: 47-year-old white male with a history of transverse myelitis secondary to a flu shot. Patient has a suprapubic catheter and frequent UTIs as a result. He presents with sepsis UTI and pyelonephritis. His behavior was consistent with manic episode of his bipolar disease. He has been seen by psychiatry and his medications have been reinitiated.Patient complaining of pain from his infection I have been able to confirm that patient is on scheduled oxycodone at home based on his prescriber database information.Patient is in bed not agitated as somewhat tangential conversation and bounces from one topic to another. Urinalysis apparently was not cultured from the emergency room prior to starting antibiotics. Patient clinically improved pain control tolerating meals no new complaints. Urine culture showing only Yeast which is a Colonized. Since urine was not sent from the ER we will not know what he was actually growing. Clinically patient is improved. Reason For Visit: SEPSIS ESBL PYELONEPHRITIS SCHIZOPHRENIA Physical Exam Vital Signs: Temp Pulse Resp BP Pulse Ox 97.7 F 88 14 141/76 H 98 07/29/18 00:21 07/29/18 11:00 07/29/18 11:00 07/29/18 00:21 07/29/18 11:00 Intake & Output 07/28/18 07/29/18 07/30/18 06:59 06:59 06:59 Intake Total 1630.5 1554.5 1104.5 Output Total 3675 3850 900 Balance -2044.5 -2295.5 204.5 Weight 101.5 kg 95.7 kg Results Laboratory Results: 07/29/18 04:38 07/29/18 04:38 07/29/18 07/29/18 04:38 04:38 WBC 6.9 RBC 4.77 Hgb 12.0 L Hct 38.0 MCV 80 MCH 25.3 L MCHC 31.7 L RDW 19.1 H Plt Count 368 Seg Neutrophils % 66.7 Lymphocytes % 21.6 Monocytes % 6.8 Eosinophils % 4.3 Basophils % 0.6 Absolute Neutrophils 4.6 Absolute Lymphocytes 1.5 Absolute Monocytes 0.5 Absolute Eosinophils 0.3 Absolute Basophils 0.0 Sodium 137.0 Potassium 4.6 Chloride 101 Carbon Dioxide 30 Anion Gap 6 BUN 8 Creatinine 0.77 Est GFR ( Amer) > 60 Est GFR (Non-Af Amer) > 60 Glucose 122 H Calcium 9.7 07/28/18 10:58 Catheterized Urine Urine Culture - Final Yeast, Not Natasha Albicans Assessment & Plan - Diagnosis (1) Pyelonephritis Is this a current diagnosis for this admission?: Yes Plan: Right flank pain consistent with pyelonephritis improved today. Will initiate patient's outpatient opioids but will not accelerate his schedule due to history of opioid dependency in the past. Continue hydration and antibiotics as ordered.Less pain reported. Patient on home opioid therapy with adequate pain control.Based on prior culture and sensitivities patient had E. coli and Klebsiella nitro ferritin will be effective against both of these. Will plan to transition patient to p.o. antibiotics and given a protracted course to complete his therapy. Anticipate discharge tomorrow (2) Acute UTI (urinary tract infection) Is this a current diagnosis for this admission?: Yes Plan: Chronic indwelling Vo catheter with positive cultures in the past of both E. coli and Klebsiella pneumoniae. Current antibiotics cover these prior pathogens urine culture Growing only yeast. Will transition to nitrofurantoin. (3) Bipolar affective disorder, currently manic, severe, with psychotic features Is this a current diagnosis for this admission?: Yes Plan: Psychiatric evaluation appreciated medication changes implemented Patient has somewhat pressured speech still somewhat tangential and mildly manic but overall behavior controlled. Will touch base with psychiatry to assure the patient is stable for discharge (4) Sepsis Qualifiers: Sepsis type: Escherichia coli Qualified Code(s): A41.51 - Sepsis due to Escherichia coli [E. coli] Is this a current diagnosis for this admission?: Yes - Time Time Spent with patient: 15-24 minutes
[2018-07-30] MEDS: OXYCODONE-ACETAMINOPHEN 5-325 MG TABLET PO SCH ×2 (02:04→09:35)
[2018-07-30] MEDS: GENTAMICIN SULFATE 180 MG in DEXTROSE 5%-WATER 100 ML IV SCH (02:04)
[2018-07-30] MEDS: OXYCODONE HCL IR 5 MG TABLET PO SCH ×2 (02:04→09:35)
[2018-07-30] MEDS: HEPARIN SOD (PORCINE) 5,000 UNIT/ML 1 ML SYRINGE SUBCUT SCH (05:23)
[2018-07-30] MEDS: IMIPENEM/CILASTATIN SODIUM 1,000 MG in NORMAL SALINE 250 ML IV SCH (05:23)
[2018-07-30 09:16] VITALS: BP 136/66
[2018-07-30] MEDS: ARIPIPRAZOLE 5 MG TABLET PO SCH (09:27)
[2018-07-30] MEDS: VALPROATE SODIUM SYRUP 250 MG/5 ML UDCUP PO SCH (09:27)
[2018-07-30] MEDS: DOCUSATE SODIUM 100 MG CAPSULE PO SCH (09:27)
[2018-07-30] MEDS: RISPERIDONE 1 MG TABLET PO SCH (09:27)
[2018-07-30] MEDS: LITHIUM CARBONATE 300 MG CAPSULE PO SCH (09:27)
--- NOTE | 2018-07-30 11:42 | PDOC DISCHARGE SUMMARY ---
General - Admit/Disc Date/PCP Admission Date/Primary Care Provider: 07/26/18 22:07 Discharge Date: 07/30/18 - Discharge Diagnosis (1) Pyelonephritis Is this a current diagnosis for this admission?: Yes (2) Acute UTI (urinary tract infection) Is this a current diagnosis for this admission?: Yes (3) Bipolar affective disorder, currently manic, severe, with psychotic features Is this a current diagnosis for this admission?: Yes (4) Sepsis Is this a current diagnosis for this admission?: Yes - Additional Information Resuscitation Status: Full Code Discharge Diet: As Tolerated Discharge Activity: Activity As Tolerated Prescriptions: Nitrofurantoin Macrocrystal [Macrodantin] 100 mg PO BID #28 capsule Home Medications: [place] Carbonate 300 mg PO QAM #14 tablet 07/17/18 Doxycycline Hyclate 100 mg PO Q12 07/26/18 Oxycodone HCl/Acetaminophen [Oxycodone-Acetaminophen 10-325] 1 each PO Q8 Risperidone [Risperdal 1 mg Tablet] 1 mg PO Q12 07/26/18 Ropinirole HCl [Requip] 1 mg PO Q12 07/26/18 Temazepam [Restoril 15 mg Capsule] 15 mg PO HSP PRN 07/26/18 Valproic Acid [Depakene] 250 mg PO Q12 07/26/18 Nitrofurantoin Macrocrystal [Macrodantin] 100 mg PO BID #28 capsule 07/30/18 History of Present Illness History of Present Illness: TONY CORTEZ is a 47 year old malePresented with right flank pain consistent with pyelonephritisAnd psychiatric behavior consistent with noncompliance Hospital Course Hospital Course: Patient admitted placed on broad-spectrum antibiotics his pain decreased. He was evaluated by psychiatry resumed on his outpatient medications which she had not been compliant with it did not feel he needed involuntary commitment. Patient's pain subsided his white count normalized he was discharged on a 14 day course of Macrobid instructed to see his urologist and had a suprapubic catheter change. Physical Exam Vital Signs: Temp Pulse Resp BP Pulse Ox 97.5 F 75 16 136/66 H 100 07/30/18 09:49 07/30/18 09:49 07/30/18 09:49 07/30/18 08:35 07/30/18 09:49 Intake & Output 07/29/18 07/30/18 07/31/18 06:59 06:59 06:59 Intake Total 1554.5 2890.5 250 Output Total 3850 3800 Balance -2295.5 -909.5 250 Weight 95.7 kg 97.3 kg General appearance: PRESENT: no acute distress, well-developed, well-nourished Neck exam: ABSENT: carotid bruit, JVD, lymphadenopathy, thyromegaly Respiratory exam: PRESENT: clear to auscultation samia. ABSENT: rales, rhonchi, wheezes Cardiovascular exam: PRESENT: RRR. ABSENT: diastolic murmur, rubs, systolic murmur GI/Abdominal exam: PRESENT: normal bowel sounds, soft. ABSENT: distended, guarding, mass, organolmegaly, rebound, tenderness Results Laboratory Results: 07/29/18 04:38 07/29/18 04:38 07/28/18 10:58 Catheterized Urine Urine Culture - Final Yeast, Not Natasha Albicans Qualifiers - * PATIENT BEING DISCHARGED WITH ANY OF THE FOLLOWING DIAGNOSIS: No Plan Time Spent: Greater than 30 Minutes
== END 2018-07-30 12:35 | disposition home or self-care (01) | DRG 872 ==
LOC: ER 19:08 → EH 22:07 → 3S 07-27 04:18
PROVIDERS: ADMIT Internal Medicine; ATTEND Internal Medicine
DX: A41.9 Sepsis, unspecified organism (principal); N10 Acute pyelonephritis; F31.2 Bipolar disorder, current episode manic severe with psychotic features; B96.1 Klebsiella pneumoniae [K. pneumoniae] as the cause of diseases classified elsewhere; B96.20 Unspecified Escherichia coli [E. coli] as the cause of diseases classified elsewhere; Z16.12 Extended spectrum beta lactamase (ESBL) resistance; Z93.50 Unspecified cystostomy status; Z79.899 Other long term (current) drug therapy; Z91.14 Patient's other noncompliance with medication regimen; Z90.49 Acquired absence of other specified parts of digestive tract
CPT/HCPCS: 36415; 80048; 80053; 80164; 80170; 81001; 83605; 84443; 85025; 87040; 87086; 96372; 99285; J0696; J0743; J1580; J1644; J1885; J3490; J7050

== ENCOUNTER 2018-07-31 21:18 | Emergency (ER) | payer MEDICARE ==
[2018-07-31 22:09] VITALS: BP 123/82
--- NOTE | 2018-07-31 23:11 | RADIOLOGY REPORT (SQ) ---
Acute abdominal series on 07/31/2018 at 11:13 PM Clinical indications: Constipation COMPARISON: CT from 07/25/2018 FINDINGS: CHEST: The lungs are clear. Cardiac, hilar and mediastinal contours are within normal limits. Pulmonary vascularity is within normal limits. ABDOMEN: There is no free air. Mild increased stool is noted in the colon especially in the rectum suggesting mild constipation. Bowel gas pattern is nonspecific. Calcifications in the pelvis are consistent with phleboliths. No bony abnormality is noted. IMPRESSION: 1. No acute cardiopulmonary disease. 2. Mild increased stool may represent mild constipation with an otherwise nonspecific abdomen.
--- NOTE | 2018-07-31 23:24 | ER Document Report ---
ED GI/ - General Chief Complaint: Constipation Stated Complaint: ABDOMINAL PAIN Time Seen by Provider: 07/31/18 23:04 Notes: Patient is a 47-year-old male that comes emergency department with chief complaint of abdominal distention, not having a bowel movement for the past 4 days, he states he believes he has a small bowel obstruction. He is still passing gas. Denies fever, states that he felt like he was going to vomit earlier but he has not had vomiting episodes, he denies chest pain or flank pain. Past medical history of transverse myelitis with secondary neurogenic bladder, his suprapubic catheter, he states he has had a bowel obstruction in the past which resolved without surgical intervention, he has also had a cholecystectomy. He is currently completing antibiotics for urinary tract infection, he was admitted to the hospital for pyelonephritis 5 days ago and discharged yesterday. TRAVEL OUTSIDE OF THE [place] IN LAST 30 DAYS: No - Related Data Allergies/Adverse Reactions: No Known Allergies Allergy (Verified 07/25/18 14:33) Past Medical History - General Information source: Patient - Social History Smoking Status: Never Smoker Frequency of alcohol use: None Drug Abuse: None Lives with: Family Family History: Hypertension Patient has suicidal ideation: No Patient has homicidal ideation: No Renal/ Medical History: Reports: Hx Kidney Stones. Denies: Hx Peritoneal Dialysis Psychiatric Medical History: Reports: Hx Bipolar Disorder, Hx Borderline Personality Disorder, Hx Depression Past Surgical History: Reports: Hx Abdominal Surgery - suprapubic catheter, Hx Cholecystectomy - Immunizations Immunizations up to date: Yes Review of Systems - Review of Systems Constitutional: No symptoms reported EENT: No symptoms reported Cardiovascular: No symptoms reported Respiratory: No symptoms reported Gastrointestinal: See HPI Genitourinary: No symptoms reported Male Genitourinary: No symptoms reported Musculoskeletal: No symptoms reported Skin: No symptoms reported Hematologic/Lymphatic: No symptoms reported Neurological/Psychological: No symptoms reported Physical Exam - Vital signs Vitals: Temp Pulse BP Pulse Ox 98.5 F 102 H 123/82 99 07/31/18 22:06 07/31/18 22:06 07/31/18 22:06 07/31/18 22:06 - Notes Notes: GENERAL: Alert, interacts well. No acute distress. HEAD: Normocephalic, atraumatic. EYES: Pupils equal, round, and reactive to light. Extraocular movements intact. ENT: Oral mucosa moist, tongue midline. NECK: Full range of motion. Supple. Trachea midline. LUNGS: Clear to auscultation bilaterally, no wheezes, rales, or rhonchi. No respiratory distress. HEART: Regular rate and rhythm. No murmur ABDOMEN: Soft, non-tender. Non-distended. No guarding. Old abdominal scars. bowel sounds present in all 4 quadrants. EXTREMITIES: Moves all 4 extremities spontaneously. No edema, normal radial and dorsalis pedis pulses bilaterally. No cyanosis. BACK: no cervical, thoracic, lumbar midline tenderness. No saddle anesthesia, normal distal neurovascular exam. NEUROLOGICAL: Alert and oriented x3. Normal speech. [cranial nerves II through XII grossly intact]. PSYCH: Talks rapidly, otherwise unremarkable mood SKIN: Warm, dry, normal turgor. No rashes or lesions noted. Course - Re-evaluation Re-evalutation: Patient is alert, well-appearing ambulates without difficulty, has a soft benign abdomen, he is not tachycardic on my exam. No fever. Unremarkable physical exam otherwise. Acute abdominal series was performed, shows no air- fluid levels, free air, or concerning acute abnormality, shows some retained stool. Patient is still passing flatus although he has not had a bowel movement in several days. He is not vomiting. He is tolerating p.o. without any difficulty. I discussed results with patient, discussed possible laboratory workup because of his reported abdominal pain, he declines, he states that he wants to be treated with some sort of stool softener for his constipation and states that he will come back if he worsens including vomiting , fever, severe pain. Given Toradol, Zofran to go, and magnesium citrate to go home with. Discussed return precautions. Patient states satisfaction and agreement. - Vital Signs Vital signs: Temp Pulse Resp BP Pulse Ox 98.5 F 102 H 123/82 99 07/31/18 22:06 07/31/18 22:06 07/31/18 22:06 07/31/18 22:06 Discharge - Discharge Clinical Impression: Abdominal pain Qualifiers: Abdominal location: generalized Qualified Code(s): R10.84 - Generalized abdominal pain Constipation Qualifiers: Constipation type: unspecified constipation type Qualified Code(s): K59.00 - Constipation, unspecified Condition: Stable Disposition: HOME, SELF-CARE Additional Instructions: Your x-ray does not show any concerning abnormality, does not show obstruction, does show some constipation. Your examination is reassuring at this time. Drink magnesium citrate for constipation, you can also take [id number] stool softener such as MiraLAX, take Zofran provided if needed for nausea. Drink plenty of fluids and rest. Follow-up with primary care. Return if you worsen including vomiting, severe abdominal pain or swelling, fever of 100.4 or greater, or any other concerning or worsening symptoms.
[2018-07-31] MEDS ORDERED: ONDANSETRON ODT 4 MG TAB (6 TAB/ER DISP) PO PRN (23:30)
[2018-07-31] MEDS ORDERED: KETOROLAC TROMETHAMINE 60 MG/2 ML SDV IM ONE (23:30)
[2018-07-31] MEDS ORDERED: MAGNESIUM CITRATE 296 ML BOTTLE PO ONE (23:32)
== END 2018-08-01 00:01 | disposition home or self-care (01) ==
LOC: ER 21:18
DX: K59.00 Constipation, unspecified (principal); R10.84 Generalized abdominal pain
CPT/HCPCS: 99283; 96372; 74022; J3490; J1885; A9270

== ENCOUNTER 2018-08-03 15:31 | Emergency (ER) | payer MEDICARE ==
[2018-08-03 15:41] VITALS: BP 131/67
[2018-08-03] MEDS ORDERED: MAGNESIUM CITRATE 296 ML BOTTLE PO ONE (16:29)
--- NOTE | 2018-08-03 16:30 | ER Document Report ---
HPI - HPI Pain Level: 0 Notes: Patient is a 47-year-old male who presents with chief complaint of Vo bag leaking. Patient has a suprapubic catheter in place and is in need of his bag changed. Past Medical History - General Information source: Patient - Social History Smoking Status: Current Some Day Smoker Frequency of alcohol use: None Drug Abuse: None Family History: Hypertension Renal/ Medical History: Reports: Hx Kidney Stones. Denies: Hx Peritoneal Dialysis Psychiatric Medical History: Reports: Hx Bipolar Disorder, Hx Borderline Personality Disorder, Hx Depression Past Surgical History: Reports: Hx Abdominal Surgery - suprapubic catheter, Hx Cholecystectomy - Immunizations Immunizations up to date: Yes Vertical Provider Document - CONSTITUTIONAL Notes: PHYSICAL EXAMINATION: GENERAL: Well-appearing, well-nourished and in no acute distress. HEAD: Atraumatic, normocephalic. EYES: Pupils equal round extraocular movements intact, conjunctiva are normal. ENT: Nares patent NECK: Normal range of motion LUNGS: No respiratory distress Musculoskeletal: Normal range of motion NEUROLOGICAL: Normal speech, normal gait. PSYCH: Normal mood, normal affect. SKIN: Warm, Dry, normal turgor, no rashes or lesions noted. - INFECTION CONTROL TRAVEL OUTSIDE OF THE [place] IN LAST 30 DAYS: No Course - Re-evaluation Re-evalutation: Vo bag replaced, patient discharged home in stable condition. - Vital Signs Vital signs: Temp Pulse Resp BP Pulse Ox 97.5 F 92 16 131/67 H 97 08/03/18 15:40 08/03/18 15:40 08/03/18 15:40 08/03/18 15:40 08/03/18 15:40 Discharge - Discharge Clinical Impression: Suprapubic catheter dysfunction Qualifiers: Encounter type: initial encounter Qualified Code(s): T83.010A - Breakdown ( mechanical) of cystostomy catheter, initial encounter Condition: Stable Disposition: HOME, SELF-CARE Additional Instructions: He was seen today because there was a puncture wound in her Vo catheter bag. We replaced this for you with a leg bag per your request. Also given a bottle of mag citrate per request for your chronic constipation.
== END 2018-08-03 16:34 | disposition home or self-care (01) ==
LOC: ER 15:31
DX: T83.010A Breakdown (mechanical) of cystostomy catheter, initial encounter (principal); Y73.8 Miscellaneous gastroenterology and urology devices associated with adverse incidents, not elsewhere classified; Y84.6 Urinary catheterization as the cause of abnormal reaction of the patient, or of later complication, without mention of misadventure at the time of the procedure
CPT/HCPCS: 99283; J3490

== ENCOUNTER 2018-08-10 15:13 | Emergency (ER) | payer MEDICARE ==
[2018-08-10 15:18] VITALS: BP 127/67
--- NOTE | 2018-08-10 16:00 | ER Document Report ---
ED Psych Disorder / Suicide - General Mode of Arrival: Ambulatory Information source: Patient TRAVEL OUTSIDE OF THE [place] IN LAST 30 DAYS: No - General Chief Complaint: Psych Problem Stated Complaint: PSYCH CONSULT Time Seen by Provider: 08/10/18 15:54 Notes: Chief complaint: Anxious History of complain:( obtained from----patient) 47 years old male with a long history of bipolar disorder, transverse myelitis of the lower lumbar region, has witnessed his colleague in committed suicide last night. Since then having feeling of anxiety. And requesting medication for anxiety. Onset: As above Duration: As above Severity: Moderate Quality: Anxious Context: As described above Exacerbating factor and relieving factors: None REVIEW OF SYSTEMS: CONSTITUTIONAL : Denies fever, chills, or sweats. Denies recent illness. EENT: Denies eye, ear, throat, or mouth pain or symptoms. Denies nasal or sinus congestion or discharge. Denies throat, tongue, or mouth swelling or difficulty swallowing. CARDIOVASCULAR: Denies chest pain. Denies palpitations or racing or irregular heart beat. Denies ankle edema. RESPIRATORY: Denies cough, cold, or chest congestion. Denies shortness of breath, difficulty breathing, or wheezing. GASTROINTESTINAL: Denies distention. Denies nausea, vomiting, or diarrhea. Denies blood in vomitus, stools, or per rectum. Denies black, tarry stools. Denies constipation. GENITOURINARY: Denies difficulty urinating, painful urination, burning, frequency, blood in urine, or discharge. FEMALE GENITOURINARY: Denies vaginal bleeding, heavy or abnormal periods, irregular periods. Denies vaginal discharge or odor. MUSCULOSKELETAL: Denies back or neck pain or stiffness. Denies joint pain or swelling. SKIN: Denies rash, lesions or sores. HEMATOLOGIC : Denies easy bruising or bleeding. LYMPHATIC: Denies swollen, enlarged glands. NEUROLOGICAL: Denies confusion or altered mental status. Denies passing out or loss of consciousness. Denies dizziness or lightheadedness. Denies headache. Denies weakness or paralysis or loss of use of either side. Denies problems with gait or speech. Denies sensory loss, numbness, or tingling. Denies seizures. PSYCHIATRIC: Denies anxiety or stress. Denies depression, suicidal ideation, or homicidal ideation. ALL OTHER SYSTEMS REVIEWED AND NEGATIVE. PHYSICAL EXAMINATION: GENERAL: Well-appearing, well-nourished and in no acute distress. HEAD: Atraumatic, normocephalic. EYES: Pupils equal round and reactive to light, extraocular movements intact, conjunctiva are normal. ENT: Nares patent, oropharynx clear without exudates. Moist mucous membranes. NECK: Normal range of motion, supple without lymphadenopathy LUNGS: Breath sounds clear to auscultation bilaterally and equal. No wheezes rales or rhonchi. HEART: Regular rate and rhythm without murmurs ABDOMEN: Soft, nontender, nondistended abdomen. No guarding, no rebound. No masses appreciated. Examination of genitals-deferred NEUROLOGICAL: Cranial nerves grossly intact. Normal speech, normal gait. Normal sensory, motor exams PSYCH: Normal mood, normal affect. Anxious not suicidal homicidal SKIN: Warm, Dry, normal turgor, no rashes or lesions noted. Dictation was performed using [employer] voice recognition software (HERBERT DILL) - HPI Notes: Dictated (HERBERT DILL) - Related Data Allergies/Adverse Reactions: No Known Allergies Allergy (Verified 08/10/18 15:14) Past Medical History - Social History Smoking Status: Never Smoker Frequency of alcohol use: None Drug Abuse: None Lives with: Family Family History: Hypertension Patient has suicidal ideation: No Patient has homicidal ideation: No Renal/ Medical History: Reports: Hx Kidney Stones. Denies: Hx Peritoneal Dialysis Psychiatric Medical History: Reports: Hx Bipolar Disorder, Hx Borderline Personality Disorder, Hx Depression Past Surgical History: Reports: Hx Abdominal Surgery - suprapubic catheter, Hx Cholecystectomy - Immunizations Immunizations up to date: Yes Review of Systems - Review of Systems Notes: Dictated (HERBERT DILL) Physical Exam - Vital signs Vitals: Temp Pulse Resp BP Pulse Ox 98.3 F 97 18 127/67 H 99 08/10/18 15:17 08/10/18 15:17 08/10/18 15:17 08/10/18 15:17 08/10/18 15:17 - Notes Notes: Dictated (HERBERT DILL) Course - Re-evaluation Re-evalutation: 08/10/18 15:57 He was evaluated by mental health, recommended not to give any medications either here or as a prescription. They will handle the his issues. (HERBERT DILL) - Vital Signs Vital signs: Temp Pulse Resp BP Pulse Ox 98.3 F 97 18 127/67 H 99 08/10/18 15:17 08/10/18 15:17 08/10/18 15:17 08/10/18 15:17 08/10/18 15:17 Discharge - Discharge Clinical Impression: Anxiety, Bipolar affective disorder, currently manic, severe, with psychotic features Disposition: HOME, SELF-CARE Instructions: Anxiety ([facility]) Additional Instructions: You were seen in the ED and evaluated by the Medical and Behavioral Health teams for anxiety and determined to be appropriate for discharge at this time. You are encouraged to follow up with an outpatient provider for therapy and medication management. Anxiety The physician feels that some of your health problems are being caused by anxiety. Anxiety affects your health in many ways. Anxiety alone can cause palpitations, sweats, chest pains, abdominal pains, shortness of breath, and headaches. It contributes to ulcer disease, high blood pressure, irritable bowel syndrome, and has been shown to cause flare-ups of many other diseases. Anxiety is not a simple disorder to treat. If the anxiety is due to recent life stresses, you may simply need time to "work through" the changes. If the anxiety is due to an underlying unhappiness with yourself or due to psychiatric disturbance, professional help will be needed. Your physician can refer you for further help if needed. Anti-anxiety medication is occasionally given if the stress is acute or if you are having trouble sleeping. Chronic or frequent use of these medications is not a good idea because the body becomes reliant on it, preventing you from dealing with life's normal stresses.
--- NOTE | 2018-08-13 17:44 | PSYCHOLOGICAL NOTE ---
Psych Note - Psych Note Psych Note: Reason for consult: anxiety PT STATES HE NEEDS TO TALK WITH SOMEONE. STATES HE JUST HAD HIS [place]OR[place]ES "BLOW HIS BRAINS OUT" LAST NIGHT. Patient reports that at 11:30pm last night his close friend killed himself in front of him in [place], [place]. Patient states that the police arrived and told him to get out of the house. Patient states that he left the house at their request and that is all that he knows about the incident. Patient denies calling 911/EMS to assist the victim. Patient is alert and oriented to time,place and circumstance. Baseline delusions of grandeur. Difficult to follow his train of thought. Eye contact was well maintained. Conversational speech was within normal rate, tone and prosody. Intellectual abilities appear to be within average range. Attention and conversation are good. Insight, judgment, impulse control are poor, as patient stormed out of the room when he learned that we could not give him any medication. Diagnosis 296.43 (F31.13) Bipolar I Disorder, Severe Impression/Plan: Patient is cleared from acute psychiatric services. Patient denies being suicidal or homicidal. Patient states that he is having problems with anxiety and would like medication. This Clinician gave him a resource list of outpatient providers to assist him with medication management upon discharge. Dr. Fried was consulted in the care and management of this patient ; attending physician is in agreement with recommendations and disposition.
== END 2018-08-10 16:07 | disposition home or self-care (01) ==
LOC: ER 15:13
DX: F41.9 Anxiety disorder, unspecified (principal); F31.2 Bipolar disorder, current episode manic severe with psychotic features
CPT/HCPCS: 99284

== ENCOUNTER 2018-08-21 07:22 | Emergency (ER) | payer MEDICARE ==
[2018-08-21 07:32] VITALS: BP 131/82
--- NOTE | 2018-08-21 08:03 | ER Document Report ---
ED GI/ - General Chief Complaint: Urinary Problem Stated Complaint: ABDOMINAL DISTENTION Time Seen by Provider: 08/21/18 07:46 Mode of Arrival: Ambulatory Information source: Patient Notes: Patient is a 47-year-old male comes emergency room complaining of having a suprapubic catheter problem. Patient has a history of transverse myelitis with secondary neurogenic bladder. And as stated has a suprapubic catheter. He also has a history of SBO with resolution without surgery and has had a cholecystectomy. He also has a history of pyelonephritis most recent outcome of that was in July. He says today that he is only here because his suprapubic catheter is leaking everywhere. Has been changed about a month ago and for some reason this 1 is not lasting very long he has leaked urine all throughout his close he wore from his underwear to his jeans and he smells of urine. Patient is very histrionic about his history and is very forward approaching about how he feels about the government. He denies any nausea vomiting diarrhea or fevers. States he knows he has no urinary tract infection currently because he is on an antibiotic. He reiterates that he is here to have a suprapubic catheter changed out. TRAVEL OUTSIDE OF THE [place] IN LAST 30 DAYS: No - HPI Patient complains to provider of: Vo catheter problem, Urinary retention Onset: Last week Timing/Duration: Gradual Quality of pain: No pain Severity at maximum: Moderate Severity in ED: Moderate Pain Level: 3 Location: Pelvis Sexual history: Inactive Associated symptoms: None Exacerbated by: Denies Relieved by: Denies Similar symptoms previously: Yes Recently seen / treated by doctor: No - Related Data Allergies/Adverse Reactions: No Known Allergies Allergy (Verified 08/10/18 15:14) Past Medical History - General Information source: Patient - Social History Smoking Status: Current Every Day Smoker Cigarette use (# per day): Yes Chew tobacco use (# tins/day): No Smoking Education Provided: Yes Frequency of alcohol use: Rare Drug Abuse: None Lives with: Alone Family History: Reviewed & Not Pertinent, Hypertension Patient has suicidal ideation: No Patient has homicidal ideation: No - Medical History Medical History: Negative Renal/ Medical History: Reports: Hx Kidney Stones. Denies: Hx Peritoneal Dialysis Psychiatric Medical History: Reports: Hx Bipolar Disorder, Hx Borderline Personality Disorder, Hx Depression Past Surgical History: Reports: Hx Abdominal Surgery - suprapubic catheter, Hx Cholecystectomy - Immunizations Immunizations up to date: Yes Review of Systems - Review of Systems Constitutional: No symptoms reported EENT: No symptoms reported Cardiovascular: No symptoms reported Respiratory: No symptoms reported Gastrointestinal: No symptoms reported Genitourinary: No symptoms reported, Other - Leakage around suprapubic catheter Male Genitourinary: No symptoms reported Musculoskeletal: No symptoms reported Skin: No symptoms reported Hematologic/Lymphatic: No symptoms reported Neurological/Psychological: No symptoms reported -: Yes All other systems reviewed and negative Physical Exam - Vital signs Vitals: Temp Pulse Resp BP Pulse Ox 98.6 F 86 14 131/82 H 100 08/21/18 07:28 08/21/18 07:28 08/21/18 07:28 08/21/18 07:28 08/21/18 07:28 Interpretation: Hypertensive - Notes Notes: Patient is a well-nourished well-developed 47-year-old male he is in no apparent distress. Very histrionic and does not focus on the reason is here. - General General appearance: Alert In distress: None - HEENT Head: Normocephalic, Atraumatic Eyes: Normal Pharynx: Normal. No: Blood in hypopharynx, Erythema, Exudate, Peritonsillar abscess, Post nasal drainage, Retropharyngeal abscess, Tonsillar hypertrophy, Uvular edema, Potential airway comprom. Neck: Supple. No: Normal, Anterior cervical chain, Posterior cervical chain, Carotid bruit, Kernig's, Lymphadenopathy, Meningismus, Neck mass, Shotty nodes, Thyromegally - Respiratory Respiratory status: No respiratory distress Chest status: Nontender Breath sounds: Normal. No: Rales, Rhonchi, Stridor, Wheezing Chest palpation: Normal - Cardiovascular Rhythm: Regular Heart sounds: Normal auscultation Murmur: No - Abdominal Inspection: Normal Distension: No distension Bowel sounds: Normal Tenderness: Tender, Other - Examination of patient's genitalia shows a normal looking penis with a suprapubic catheter in place superior to that. There is urine leakage all around the catheter itself. Catheter looks also clogged with a lot of articles in the tube itself. Patient also has a completely full leg bag so possible overflow from not changing the bag out as a possibility as well. Organomegaly: No organomegaly - Genitourinary Inspection: Normal. No: Blood at meatus Tenderness: Nontender Scrotum: Normal - Neurological Neuro grossly intact: Yes Cognition: Normal Orientation: AAOx4 [place] Coma Scale Eye Opening: Spontaneous [place] Coma Scale Verbal: Oriented Holly Coma Scale Motor: Obeys Commands [place] Coma Scale Total: 15 Speech: Normal Course - Re-evaluation Re-evalutation: 08/21/18 08:36 I was unable to find a procedure note and procedures for change of suprapubic catheter so I am putting in here. Patient needed a Maltese catheter. He originally form it was a suprapubic catheter used but we did not have the size. Reexamined we found that patient was using the actual Vo catheter 16 Maltese and just disconnected it from the main large hose. At this point we covered patient as best we could we used sterile technique and we deflated the 10 mL balloon on the catheter that was indwelling with him. We then pulled out the old wound and I wiped the area again clean and I took the new 16 Maltese Vo catheter and I was able to push it through the ostomy and into the bladder or we got instant urine return. I then inflated the 10 mL balloon and pulled back and had a good contact. We waited a few minutes and watch the leg bag filled with 300 cc of urine so we knew we were in the bladder. Patient denied any discomfort. We then reapplied a brand-new Vo bag and patient is ready to go home - Vital Signs Vital signs: Temp Pulse Resp BP Pulse Ox 98.6 F 86 14 131/82 H 100 08/21/18 07:28 08/21/18 07:28 08/21/18 07:28 08/21/18 07:28 08/21/18 07:28 Discharge - Discharge Clinical Impression: Suprapubic cath change Disposition: HOME, SELF-CARE Instructions: Vo Catheter Care ([facility]) Additional Instructions: Sorry about the discharge papers are no you do not have a Vo catheter you have a suprapubic catheter but the care for this similar. Highly suggest that you follow-up with your urologist for further intervention if needed. Return to ER if you have any concerns or problems. Given he did not want your urine run because you have no indication it is a urinary tract infection we will on her that but if you need to come back and have us check it please do so. Forms: Elevated Blood Pressure
== END 2018-08-21 08:58 | disposition home or self-care (01) ==
LOC: ER 07:22
DX: Z46.6 Encounter for fitting and adjustment of urinary device (principal); F17.210 Nicotine dependence, cigarettes, uncomplicated; Z87.442 Personal history of urinary calculi; Z90.49 Acquired absence of other specified parts of digestive tract
CPT/HCPCS: 99284; 51702; C1729

== ENCOUNTER 2018-08-25 21:34 | Emergency (ER) | payer MEDICARE ==
[2018-08-25] MEDS ORDERED: NORMAL SALINE 1000 ML 1,000 ML IV ONE (23:30)
[2018-08-25] MEDS ORDERED: KETOROLAC TROMETHAMINE INJ/PF 30 MG/1 ML SDV IV ONE (23:30)
[2018-08-25] MEDS ORDERED: MORPHINE SULFATE 10 MG/ML INJ IV PRN (23:30)
[2018-08-25] MEDS ORDERED: ONDANSETRON HCL INJ/PF 4 MG/2 ML SDV IV ONE (23:31)
[2018-08-25] MEDS ORDERED: ACETAMINOPHEN 325 MG TABLET PO ONE (23:31)
--- NOTE | 2018-08-25 23:32 | ER Document Report ---
ED General - General Chief Complaint: Abdominal Pain Stated Complaint: SWEATING ALOT Time Seen by Provider: 08/25/18 23:14 Notes: Patient is a 47-year old male who presents with complaints of right flank pain as well as cloudiness to the urine. He also reports that he had a fever at home. History is difficult to obtain as the patient is extremely loquacious, goes on at length about things not at all related to his presentation including his Catholic, his dog the types of cars he drives, his favorite colors, his time in the service, and is extremely difficult to redirect. On multiple attempts I tried to asked the patient what exactly brings him to the emergency department. He does tell me that he had a fever at home, states he recorded at 103 F. Of note he is afebrile here. He also states that he has right flank pain but then also tells me he is insensate and cannot feel his right flank pain. States this feels similar to when he has had pyonephritis in the past. He has not contacted his primary care doctor regarding today's concerns. Nothing improves or worsens his symptoms. TRAVEL OUTSIDE OF THE [place] IN LAST 30 DAYS: No - Related Data Allergies/Adverse Reactions: No Known Allergies Allergy (Verified 08/10/18 15:14) Past Medical History - General Information source: Patient - Social History Smoking Status: Never Smoker Frequency of alcohol use: None Drug Abuse: None Lives with: Alone Family History: Reviewed & Not Pertinent, Hypertension Renal/ Medical History: Reports: Hx Kidney Stones. Denies: Hx Peritoneal Dialysis Psychiatric Medical History: Reports: Hx Bipolar Disorder, Hx Borderline Personality Disorder, Hx Depression Past Surgical History: Reports: Hx Abdominal Surgery - suprapubic catheter, Hx Cholecystectomy - Immunizations Immunizations up to date: Yes Review of Systems - Review of Systems Notes: Constitutional: Positive for fever. HENT: Negative for sore throat. Eyes: Negative for visual changes. Cardiovascular: Negative for chest pain. Respiratory: Negative for shortness of breath. Gastrointestinal: Positive for flank pain Genitourinary: Negative for dysuria. Musculoskeletal: Negative for back pain. Skin: Negative for rash. Neurological: Negative for headaches, weakness or numbness. 10 point ROS negative except as marked above and in HPI. Physical Exam - Vital signs Vitals: Temp Pulse Resp BP Pulse Ox 98.5 F 105 H 20 134/79 H 95 10/14/18 21:55 08/25/18 21:55 08/25/18 21:55 08/25/18 21:55 08/25/18 21:55 Interpretation: Tachycardic Notes: PHYSICAL EXAMINATION: GENERAL: Well-appearing, well-nourished and in no acute distress. HEAD: Atraumatic, normocephalic. EYES: Pupils equal round and reactive to light, extraocular movements intact, sclera anicteric, conjunctiva are normal. ENT: nares patent, oropharynx clear without exudates. Moist mucous membranes. NECK: Normal range of motion, supple without lymphadenopathy LUNGS: Breath sounds clear to auscultation bilaterally and equal. No wheezes rales or rhonchi. HEART: Regular rate and rhythm without murmurs ABDOMEN: Soft, nontender, normoactive bowel sounds. No guarding, no rebound. No masses appreciated. EXTREMITIES: Normal range of motion, no pitting or edema. No cyanosis. NEUROLOGICAL: No focal neurological deficits. Moves all extremities spontaneously and on command. PSYCH: Flight of ideas, extremely histrionic SKIN: Warm, Dry, normal turgor, suprapubic catheter in place without surrounding erythema or drainage Course - Re-evaluation Re-evalutation: 08/25/18 23:31 Patient presents with complaints of fever, right flank pain, nausea, states this feels similar when he is at pyonephritis and congestion with a suprapubic catheter in the past. The patient is otherwise well in appearance, vitals within normal limits the time of my assessment. He is very talkative, has flight of ideas which apparently is baseline. Examination is otherwise unremarkable. Will obtain labs, begin IV fluids, obtain cultures and reassess 08/26/18 01:31 Urinalysis is consistent with acute pyelonephritis. A culture has been sent. Patient's laboratories are otherwise unremarkable without evidence of renal dysfunction, significant leukocytosis. Patient is resting comfortably, has tolerated oral intake without difficulty. He has been given a dose of ceftriaxone IV. He was started on a 7-day course of levofloxacin based on previous sensitivities. At this time will discharge with return precautions and follow-up recommendations. Verbal discharge instructions given a the bedside and opportunity for questions given. Medication warnings reviewed. Patient is in agreement with this plan and has verbalized understanding of return precautions and the need for primary care follow-up in the next 24-72 hours. 1 - Vital Signs Vital signs: Temp Pulse Resp BP Pulse Ox 97.9 F 79 16 131/77 H 100 08/25/18 23:53 08/25/18 23:53 08/25/18 23:53 08/25/18 23:53 08/25/18 23:53 - Laboratory Result Diagrams: 08/25/18 23:23 08/25/18 23:23 Laboratory results interpreted by me: 08/25/18 08/25/18 08/26/18 23:23 23:23 00:25 Hgb 11.1 L Hct 34.3 L MCV 76 L D MCH 24.6 L RDW 17.9 H Albumin 3.4 L Urine Protein 100 H Urine Glucose (UA) 50 H Urine Nitrite POSITIVE H Urine Urobilinogen 4.0 H Ur Leukocyte Esterase LARGE H Discharge - Discharge Clinical Impression: Pyelonephritis, Right flank pain Condition: Good Disposition: HOME, SELF-CARE Additional Instructions: You have been diagnosed with a condition called pyelonephritis which is an infection involving your kidneys and bladder. You have been given a dose of antibiotics here in the emergency department to help begin to treat this infection. Your also being sent home on antibiotics. Please start taking these later on today when you fill the prescription. Complete the course even if you feel better. Please return if you have persistent vomiting, pass out, have worsening pain, become unable to tolerate fluids, or have any other symptoms that are concerning to you. Please follow-up with your primary care physician in the next 24-48 hours. Prescriptions: Levofloxacin [Levaquin 500 mg Tablet] 500 mg PO DAILY #10 tablet
[2018-08-26 00:05] LABS: ABSOLUTE BASOPHILS # (AUTO) 0.1 10^3/uL (0.0-0.2); ABSOLUTE MONOCYTES (AUTO) 0.9 10^3/uL (0.1-1.4); EOSINOPHILS % (AUTO) 2.9 % (0-6); TOTAL CELLS COUNTED % (AUTO) 100 %
[2018-08-26 00:14] LABS: ABSOLUTE EOSINOPHILS # (AUTO) 0.3 10^3/uL (0.0-0.6); ABSOLUTE LYMPHOCYTES (AUTO) 1.7 10^3/uL (0.5-4.7); ABSOLUTE NEUT (AUTO) 6.1 10^3/uL (1.7-8.2); BASOPHILS % (AUTO) 1.3 % (0-2); HEMATOCRIT 34.3 % (37.9-51.0); HEMOGLOBIN 11.1 g/dL (13.5-17.0); LYMPHOCYTES % (AUTO) 18.7 % (13-45); MEAN CORPUSCULAR HEMOGLOBIN 24.6 pg (27.0-33.4); MEAN CORPUSCULAR HGB CONC 32.3 g/dL (32.0-36.0); PLATELET COUNT 423 10^3/uL (150-450); RED CELL DISTRIBUTION WIDTH 17.9 % (11.5-14.0); SEGMENTED NEUTROPHILS % (AUTO) 67.1 % (42-78)
[2018-08-26 00:15] LABS: MEAN CORPUSCULAR VOLUME 76 fl (80-97)
[2018-08-26 00:24] LABS: ALANINE AMINOTRANSFERASE 40 U/L (21-72); ALBUMIN 3.4 g/dL (3.5-5.0); ALKALINE PHOSPHATASE 58 U/L (38-126); ANION GAP 7 (5-19); ASPARTATE AMINO TRANSFERASE 55 U/L (17-59); BILIRUBIN,DIRECT 0.4 mg/dL (0.0-0.4); BILIRUBIN,TOTAL 0.6 mg/dL (0.2-1.3); BLOOD UREA NITROGEN 11 mg/dL (7-20); CALCIUM 9.2 mg/dL (8.4-10.2); CARBON DIOXIDE 28 mmol/L (22-30); CHLORIDE 105 mmol/L (98-107); GLUCOSE 81 mg/dL (75-110); LIPASE 161.2 U/L (23-300); POTASSIUM 4.2 mmol/L (3.6-5.0); SODIUM 139.8 mmol/L (137-145); TOTAL PROTEIN 6.4 g/dL (6.3-8.2)
[2018-08-26 01:21] LABS: AMORPHOUS SEDIMENT,URINE TRACE /HPF; APPEARANCE,URINE CLOUDY; BILIRUBIN,URINE NEGATIVE (NEGATIVE); COLOR,URINE YELLOW; GLUCOSE, URINE 50 mg/dL (NEGATIVE); KETONES,URINE NEGATIVE (NEGATIVE); LEUKOCYTE ESTERASE,URINE LARGE (NEGATIVE); NITRITE,URINE POSITIVE (NEGATIVE); PROTEIN,URINE 100 mg/dL (NEGATIVE); URINE SPECIFIC GRAVITY 1.019
[2018-08-26] MEDS ORDERED: CEFTRIAXONE INJ 1000 MG VIAL IV ONE (01:30)
[2018-08-26] MEDS ORDERED: LEVOFLOXACIN 500 MG TABLET PO ONE (01:39)
[2018-08-26 02:28] VITALS: BP 110/90
== END 2018-08-26 02:09 | disposition home or self-care (01) ==
LOC: ER 21:34
DX: N12 Tubulo-interstitial nephritis, not specified as acute or chronic (principal); R10.9 Unspecified abdominal pain; R50.9 Fever, unspecified
CPT/HCPCS: 99284; 96361; 96374; 96375; 36415; 87086; 83690; 85025; 87088; 80053; 81001; 87186; A9270 ×2; J1885; J2270; J2405; J7030

== ENCOUNTER 2018-08-27 20:33 | Emergency (ER) | payer MEDICARE ==
[2018-08-27 20:41] VITALS: BP 143/73
[2018-08-27] MEDS ORDERED: ONDANSETRON HCL INJ/PF 4 MG/2 ML SDV IV ONE (22:11)
[2018-08-27] MEDS ORDERED: HYDROMORPHONE HCL INJ/PF 2 MG/ML AMPULE IV ONE (22:11)
[2018-08-27] MEDS ORDERED: NORMAL SALINE 1000 ML 1,000 ML IV ONE (22:11)
[2018-08-27 22:23] LABS: ABSOLUTE BASOPHILS # (AUTO) 0.2 10^3/uL (0.0-0.2); ABSOLUTE EOSINOPHILS # (AUTO) 0.3 10^3/uL (0.0-0.6); ABSOLUTE LYMPHOCYTES (AUTO) 1.8 10^3/uL (0.5-4.7); ABSOLUTE MONOCYTES (AUTO) 0.9 10^3/uL (0.1-1.4); BASOPHILS % (AUTO) 2.2 % (0-2); EOSINOPHILS % (AUTO) 3.5 % (0-6); HEMATOCRIT 32.5 % (37.9-51.0); HEMOGLOBIN 10.4 g/dL (13.5-17.0); LYMPHOCYTES % (AUTO) 19.5 % (13-45); MEAN CORPUSCULAR HEMOGLOBIN 24.5 pg (27.0-33.4); MEAN CORPUSCULAR VOLUME 77 fl (80-97); MONOCYTES % (AUTO) 10.1 % (3-13); PLATELET COUNT 366 10^3/uL (150-450); RED BLOOD COUNT 4.24 10^6/uL (4.35-5.55); RED CELL DISTRIBUTION WIDTH 18.2 % (11.5-14.0); SEGMENTED NEUTROPHILS % (AUTO) 64.7 % (42-78); TOTAL CELLS COUNTED % (AUTO) 100 %; WHITE BLOOD COUNT 9.4 10^3/uL (4.0-10.5)
[2018-08-27 22:27] LABS: ALANINE AMINOTRANSFERASE 41 U/L (21-72); ALBUMIN 3.2 g/dL (3.5-5.0); ALKALINE PHOSPHATASE 49 U/L (38-126); ANION GAP 8 (5-19); ASPARTATE AMINO TRANSFERASE 40 U/L (17-59); BILIRUBIN,DIRECT 0.2 mg/dL (0.0-0.4); BILIRUBIN,TOTAL 0.3 mg/dL (0.2-1.3); BLOOD UREA NITROGEN 8 mg/dL (7-20); CALCIUM 9.3 mg/dL (8.4-10.2); CARBON DIOXIDE 26 mmol/L (22-30); CHLORIDE 105 mmol/L (98-107); CREATINE KINASE 330 U/L (55-170); GLUCOSE 109 mg/dL (75-110); LIPASE 158.7 U/L (23-300); POTASSIUM 4.2 mmol/L (3.6-5.0); SODIUM 139.1 mmol/L (137-145)
--- NOTE | 2018-08-27 23:34 | ER Document Report ---
ED GI/ - General Chief Complaint: Flank Pain Stated Complaint: FLANK PAIN Time Seen by Provider: 08/27/18 21:31 Mode of Arrival: Ambulatory Information source: Patient Notes: Patient said he is having right flank. He was recently treated for right pyelonephritis. He said the antibiotics to give him is not walking and he wants to be evaluated for the pyelonephritis. Patient is asking for Dilaudid pain medicine in the emergency room for pain control. TRAVEL OUTSIDE OF THE [place] IN LAST 30 DAYS: No - HPI Patient complains to provider of: Flank pain - Right Flank Onset: Just prior to arrival Timing/Duration: Sudden Quality of pain: Sharp Severity at maximum: Severe Severity in ED: Moderate Pain Level: 3 Location: Right flank Associated symptoms: Nausea Exacerbated by: Denies Relieved by: Denies Similar symptoms previously: Yes Recently seen / treated by doctor: Yes - Related Data Allergies/Adverse Reactions: No Known Allergies Allergy (Verified 08/26/18 04:36) Past Medical History - Social History Smoking Status: Never Smoker Family History: Reviewed & Not Pertinent, Hypertension Patient has suicidal ideation: No Patient has homicidal ideation: No Renal/ Medical History: Reports: Hx Kidney Stones. Denies: Hx Peritoneal Dialysis Psychiatric Medical History: Reports: Hx Bipolar Disorder, Hx Borderline Personality Disorder, Hx Depression Past Surgical History: Reports: Hx Abdominal Surgery - suprapubic catheter, Hx Cholecystectomy - Immunizations Immunizations up to date: Yes Review of Systems - Review of Systems Constitutional: No symptoms reported EENT: No symptoms reported Cardiovascular: No symptoms reported Respiratory: No symptoms reported Gastrointestinal: Abdominal pain, Nausea Genitourinary: No symptoms reported Male Genitourinary: No symptoms reported Musculoskeletal: No symptoms reported Skin: No symptoms reported Hematologic/Lymphatic: No symptoms reported Neurological/Psychological: No symptoms reported -: Yes All other systems reviewed and negative Physical Exam - Vital signs Vitals: Temp Pulse Resp BP Pulse Ox 99.1 F 93 18 143/73 H 98 08/27/18 20:38 08/27/18 20:38 08/27/18 20:38 08/27/18 20:38 08/27/18 20:38 Interpretation: Normal - General General appearance: Appears well, Alert - HEENT Head: Normocephalic, Atraumatic Eyes: Normal Pupils: PERRL - Respiratory Respiratory status: No respiratory distress Chest status: Nontender Breath sounds: Normal Chest palpation: Normal - Cardiovascular Rhythm: Regular Heart sounds: Normal auscultation Murmur: No - Abdominal Inspection: Normal Distension: No distension Bowel sounds: Normal Tenderness: Tender - Right CVA tenderness to palpation. Organomegaly: No organomegaly - Back Back: Normal, Nontender - Extremities General upper extremity: Normal inspection, Nontender, Normal color, Normal ROM , Normal temperature General lower extremity: Normal inspection, Nontender, Normal color, Normal ROM , Normal temperature. No: Martin's sign - Neurological Neuro grossly intact: Yes Cognition: Normal Orientation: AAOx4 [place] Coma Scale Eye Opening: Spontaneous [place] Coma Scale Verbal: Oriented [place] Coma Scale Motor: Obeys Commands [place] Coma Scale Total: 15 Speech: Normal Motor strength normal: LUE, RUE, LLE, RLE Sensory: Normal - Psychological Associated symptoms: Normal affect, Normal mood - Skin Skin Temperature: Warm Skin Moisture: Dry Skin Color: Normal Course - Re-evaluation Re-evalutation: 08/28/18 02:03 Patient left AGAINST MEDICAL ADVICE. - Vital Signs Vital signs: Temp Pulse Resp BP Pulse Ox 99.1 F 93 18 143/73 H 98 08/27/18 20:38 08/27/18 20:38 08/27/18 20:38 08/27/18 20:38 08/27/18 20:38 - Laboratory Result Diagrams: 08/27/18 21:40 08/27/18 21:40 Laboratory results interpreted by me: 08/27/18 08/27/18 08/27/18 21:40 21:40 23:30 RBC 4.24 L Hgb 10.4 L Hct 32.5 L MCV 77 L MCH 24.5 L RDW 18.2 H Basophils % 2.2 H Creatine Kinase 330 H Total Protein 6.0 L Albumin 3.2 L Urine Blood SMALL H Urine Nitrite POSITIVE H Ur Leukocyte Esterase LARGE H - Diagnostic Test Radiology reviewed: Image reviewed, Reports reviewed - Transfer of Care Notes: 08/27/18 23:32 Right Flank Pain. Discharge - Discharge Clinical Impression: Right flank pain, Pyelonephritis UTI (urinary tract infection) Qualifiers: Urinary tract infection type: acute cystitis Hematuria presence: without hematuria Qualified Code(s): N30.00 - Acute cystitis without hematuria Condition: Stable Disposition: AGAINST MEDICAL ADVICE
[2018-08-27 23:49] LABS: APPEARANCE,URINE SLIGHTLY-CLOUDY; BILIRUBIN,URINE NEGATIVE (NEGATIVE); COLOR,URINE YELLOW; GLUCOSE, URINE NEGATIVE (NEGATIVE); KETONES,URINE NEGATIVE (NEGATIVE); LEUKOCYTE ESTERASE,URINE LARGE (NEGATIVE); NITRITE,URINE POSITIVE (NEGATIVE); PROTEIN,URINE NEGATIVE (NEGATIVE); URINE SPECIFIC GRAVITY 1.005; UROBILINOGEN,URINE NEGATIVE mg/dL (<2.0)
--- NOTE | 2018-08-28 00:33 | RADIOLOGY REPORT (SQ) ---
EXAM DESCRIPTION: CT ABDOMEN AND PELVIS WITH CONTRAST CLINICAL HISTORY: Right Flank Pain COMPARISON: 07/25/2018 TECHNIQUE: CT of the abdomen and pelvis performed following IV administration of iodinated contrast. DLP: 1494.63 mGycm FINDINGS: Lung Bases: The visualized lung bases are clear. Bones: No destructive bone lesions identified. Degenerative change of the spine. Abdomen: Liver: The liver has normal size and density. No intrahepatic mass or biliary dilatation. Gallbladder: Prior cholecystectomy. Spleen, Pancreas, and Adrenal Glands: The spleen, pancreas, and adrenal glands are unremarkable. Kidneys: The kidneys have normal size and contour without evidence of solid mass or hydronephrosis. Vasculature: The aorta and IVC have normal caliber and position. The portal vein is patent. The proximal visceral and renal arteries are patent. Stomach: Postoperative change of the stomach. Other: No free intraperitoneal air. Mild subcutaneous edema No free fluid or lymphadenopathy. Pelvis: Bladder: Suprapubic catheter. Bowel: No dilated loops of large or small bowel. Appendix: Normal appendix. Pelvis: Prostate is not enlarged. IMPRESSION: 1. No acute inflammatory or obstructive process identified. This exam was performed according to our departmental dose-optimization program, which includes automated exposure control, adjustment of the mA and/or kV according to patient size and/or use of iterative reconstruction technique.
== END 2018-08-28 01:05 | disposition left against medical advice (07) ==
LOC: ER 20:33
DX: N12 Tubulo-interstitial nephritis, not specified as acute or chronic (principal); N30.00 Acute cystitis without hematuria; R10.9 Unspecified abdominal pain; Z87.442 Personal history of urinary calculi; Z53.20 Procedure and treatment not carried out because of patient's decision for unspecified reasons
CPT/HCPCS: 99284; 96374; 96375; 36415; 82550; 83690; 85025; 80053; 81001; 74177; J1170; J2405; J7030

== ENCOUNTER 2018-08-31 10:04 | Emergency (ER) | payer MEDICARE ==
[2018-08-31 10:26] VITALS: BP 111/61
[2018-08-31] MEDS ORDERED: FUROSEMIDE 20 MG TABLET PO SCH (10:30)
--- NOTE | 2018-08-31 10:36 | ER Document Report ---
ED General - General Chief Complaint: Leg Swelling Stated Complaint: LEG SWELLING Time Seen by Provider: 08/31/18 10:26 TRAVEL OUTSIDE OF THE [place] IN LAST 30 DAYS: No - HPI Patient complains to provider of: Bilateral leg swelling Notes: Patient coming in for evaluation of bilateral leg swelling. Patient has a history of a superior pubic indwelling Vo catheter has been recently admitted to the hospital and has had multiple ER visits. Patient states the swelling is been ongoing for months and has forgot to mention the swelling to any physician during his multiple visits here. Patient states no recent travel no pain in the calves no fever chills nausea vomiting diarrhea. Patient is hyperverbal which looks to be consistent with his previous ER visits. Patient otherwise very pleasant patient states that when this happens in the past he has received Lasix and Aldactone patient states he is currently not on any of these medications. Patient states he has been elevating his legs at nighttime with no relief of the swelling. - Related Data Allergies/Adverse Reactions: No Known Allergies Allergy (Verified 08/31/18 10:23) Past Medical History - Social History Smoking Status: Current Every Day Smoker Chew tobacco use (# tins/day): No Frequency of alcohol use: None Drug Abuse: None Family History: Reviewed & Not Pertinent, Hypertension Patient has suicidal ideation: No Patient has homicidal ideation: No Renal/ Medical History: Reports: Hx Kidney Stones. Denies: Hx Peritoneal Dialysis Psychiatric Medical History: Reports: Hx Bipolar Disorder, Hx Borderline Personality Disorder, Hx Depression Past Surgical History: Reports: Hx Abdominal Surgery - suprapubic catheter, Hx Cholecystectomy - Immunizations Immunizations up to date: Yes Review of Systems - Review of Systems Constitutional: No symptoms reported EENT: No symptoms reported Cardiovascular: No symptoms reported Respiratory: No symptoms reported Gastrointestinal: No symptoms reported Genitourinary: No symptoms reported Male Genitourinary: No symptoms reported Musculoskeletal: Leg swelling Skin: No symptoms reported Hematologic/Lymphatic: No symptoms reported Neurological/Psychological: No symptoms reported Physical Exam - Vital signs Vitals: Temp Pulse BP Pulse Ox 97.9 F 117 H 108/68 97 08/31/18 10:10 08/31/18 10:10 08/31/18 10:10 08/31/18 10:10 Interpretation: Normal - General General appearance: Appears well, Alert - HEENT Head: Normocephalic, Atraumatic Eyes: Normal Pupils: PERRL - Respiratory Respiratory status: No respiratory distress Chest status: Nontender Breath sounds: Normal Chest palpation: Normal - Cardiovascular Rhythm: Regular Heart sounds: Normal auscultation Murmur: No - Abdominal Inspection: Normal Distension: No distension Bowel sounds: Normal Tenderness: Nontender Organomegaly: No organomegaly - Back Back: Normal, Nontender - Extremities General upper extremity: Normal inspection, Nontender, Normal color, Normal ROM , Normal temperature General lower extremity: Normal inspection, Nontender, Edema - 1+ bilaterally, Normal color, Normal ROM, Normal temperature, Normal weight bearing. No: Martin' s sign - Neurological Neuro grossly intact: Yes Cognition: Normal Orientation: AAOx4 [place] Coma Scale Eye Opening: Spontaneous [place] Coma Scale Verbal: Oriented [place] Coma Scale Motor: Obeys Commands Holly Coma Scale Total: 15 Speech: Normal Motor strength normal: LUE, RUE, LLE, RLE Sensory: Normal - Psychological Associated symptoms: Normal affect, Normal mood - Skin Skin Temperature: Warm Skin Moisture: Dry Skin Color: Normal Course - Re-evaluation Re-evalutation: 08/31/18 19:51 Patient is very insistent despite my education about using compression stockings and elevation that he will need Lasix. I did review the patient's previous visits and laboratory studies last being approximately 48 hours old no signs of any electrolyte abnormalities or renal dysfunction. Compromise of the patient will give the patient 10 mg of Lasix for the next 2 days also will prescribe him compression stockings. Patient states understanding patient will be discharged home. - Vital Signs Vital signs: Temp Pulse Resp BP Pulse Ox 97.9 F 109 H 18 111/61 99 08/31/18 10:10 08/31/18 10:25 08/31/18 10:25 08/31/18 10:25 08/31/18 10:25 Discharge - Discharge Clinical Impression: Leg swelling Condition: Good Disposition: [facility]-Other Instructions: Edema, Peripheral ([facility]) Additional Instructions: Elevate your legs when you are standing please also watch your salt intake as that salt with increased swelling. Would recommend using the compression stockings as prescribed to help out with any further swelling. Please take the Lasix that we gave you here in ER half a tablet 10 mg once a day for the next 2 days. Follow-up with your primary care physician. I will give your information to our social group worker so that we can establish you with primary care. Prescriptions: Compress.stocking,Knee,Reg,Lrg [Relief Knee Open Toe] 1 each MC DAILY #1 each
== END 2018-08-31 10:45 | disposition home or self-care (01) ==
LOC: ER 10:04
DX: M79.89 Other specified soft tissue disorders (principal); F17.200 Nicotine dependence, unspecified, uncomplicated; Z87.442 Personal history of urinary calculi; Z90.49 Acquired absence of other specified parts of digestive tract
CPT/HCPCS: 99283; A9270

== ENCOUNTER 2018-09-01 20:31 | Emergency (ER) | payer MEDICARE ==
[2018-09-01] MEDS ORDERED: KETOROLAC TROMETHAMINE INJ/PF 30 MG/1 ML SDV IV ONE (22:03)
--- NOTE | 2018-09-01 22:18 | ER Document Report ---
ED Fall - General Chief Complaint: Fall Stated Complaint: FALL Time Seen by Provider: 09/01/18 21:51 Mode of Arrival: Medic Information source: Patient, Emergency Med Personnel, [facility] Records Notes: This 47-year-old male patient with past history of bipolar disorder manic type with medication noncompliance, transverse myelitis attributed to an influenza vaccine with chronic suprapubic catheter. He reports falling down 3 steps at home about 8 PM tonight injuring his left second toe and foot. He reports he has titanium sebastian in the left lower leg. He took a 10 mg Percocet after the injury, and states that his not done anything for him. He does take Percocet 10 mg tablets 4 times daily for his chronic back pain and other pain issues. He did recently moved to this area, and has been in the emergency room 12 times in the past 8 weeks. He was in his room screaming and yelling earlier, and this is characteristic of his behavior. 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 TRAVEL OUTSIDE OF THE [place] IN LAST 30 DAYS: No - Related data Allergies/Adverse Reactions: No Known Allergies Allergy (Verified 08/31/18 10:23) Past Medical History - General Information source: Patient, Emergency Med Personnel, [facility] Records - Social History Smoking Status: Never Smoker Cigarette use (# per day): No Chew tobacco use (# tins/day): No Smoking Education Provided: No Frequency of alcohol use: Occasional Occupation: Unemployed Family History: Reviewed & Not Pertinent, Hypertension Renal/ Medical History: Reports: Hx Kidney Stones Psychiatric Medical History: Reports: Hx Bipolar Disorder, Hx Borderline Personality Disorder, Hx Depression Past Surgical History: Reports: Hx Cholecystectomy, Hx Genitourinary Surgery - Suprapubic catheter - Immunizations Immunizations up to date: Yes Review of Systems - Review of Systems Constitutional: No symptoms reported EENT: No symptoms reported Cardiovascular: Edema Respiratory: No symptoms reported Gastrointestinal: No symptoms reported Genitourinary: Other - Patient has a suprapubic catheter Musculoskeletal: Back pain, Leg swelling, Ankle swelling Skin: No symptoms reported Hematologic/Lymphatic: No symptoms reported Neurological/Psychological: See HPI Physical Exam - Vital signs Vitals: Temp Pulse Resp BP Pulse Ox 97.5 F 87 16 129/71 H 98 09/01/18 20:44 09/01/18 20:44 09/01/18 20:44 09/01/18 20:44 09/01/18 20:44 Interpretation: Normal - General General appearance: Appears well, Alert In distress: Mild - Patient is trying to negotiate IV narcotic pain medication - HEENT Head: Normocephalic, Atraumatic Eyes: Normal Pupils: PERRL - Respiratory Respiratory status: No respiratory distress - Cardiovascular Rhythm: Regular - Abdominal Inspection: Other - Suprapubic catheter - Back Back: Tender - Extremities General upper extremity: Normal inspection General lower extremity: Edema Foot: Other - The left second toe shows some extension at the MTP joint and flexion at the PIP joint. There is similar less pronounced extension and flexion in the third toe. The patient states what is seen now it is new since he fell. There is no swelling or bruising noted. He does complain of tenderness to palpate the toe and the dorsal foot. He further states the pain goes all the way up now above the knee. - Neurological Neuro grossly intact: Yes - Psychological Associated symptoms: Agitated, Irritable - Skin Skin Temperature: Warm Skin Moisture: Dry Skin Color: Normal Course - Vital Signs Vital signs: Temp Pulse Resp BP Pulse Ox 97.5 F 87 16 129/71 H 98 09/01/18 20:44 09/01/18 20:44 09/01/18 20:44 09/01/18 20:44 09/01/18 20:44 - Diagnostic Test Radiology reviewed: Image reviewed, Reports reviewed - X-ray does not show fracture or dislocation of any of the bones of the toes or foot. There is old hardware from ORIF of the left ankle Discharge - Discharge Clinical Impression: Pain in toe of left foot Fall Qualifiers: Encounter type: initial encounter Qualified Code(s): W19.XXXA - Unspecified fall, initial encounter Condition: Stable Disposition: HOME, SELF-CARE Additional Instructions: No fractures were seen in the x-rays of your toes and foot today. You should elevate your foot and limit weightbearing as much as possible. Continue your regular pain management medications. Follow-up with your doctor or a local primary care provider tomorrow if not improving. RETURN TO THE EMERGENCY ROOM IF ANY NEW OR WORSENING SYMPTOMS.
--- NOTE | 2018-09-01 22:58 | RADIOLOGY REPORT (SQ) ---
EXAM DESCRIPTION: XR FOOT 3 OR MORE VIEWS COMPLETED DATE/TME: 09/01/2018 22:03 CLINICAL HISTORY: 47 years, Male, Fell down 3 steps, injured left 2nd toe and foot FINDINGS: Bony alignment is anatomic. No fracture or dislocation. Soft tissues are unremarkable. IMPRESSION: No evidence for acute fracture.
[2018-09-01 23:27] VITALS: BP 143/71
== END 2018-09-01 23:35 | disposition home or self-care (01) ==
LOC: ER 20:31
DX: M79.672 Pain in left foot (principal); F31.9 Bipolar disorder, unspecified; Z91.14 Patient's other noncompliance with medication regimen; W10.9XXA Fall (on) (from) unspecified stairs and steps, initial encounter; Y92.009 Unspecified place in unspecified non-institutional (private) residence as the place of occurrence of the external cause; Z79.899 Other long term (current) drug therapy
CPT/HCPCS: 99284; 96374; 73630; J1885

== ENCOUNTER 2018-09-05 18:15 | Emergency (ER) | payer MEDICARE ==
[2018-09-05] MEDS ORDERED: NORMAL SALINE 1000 ML 1,000 ML IV ONE (19:14)
[2018-09-05] MEDS ORDERED: ONDANSETRON HCL INJ/PF 4 MG/2 ML SDV IV ONE (19:14)
--- NOTE | 2018-09-05 19:14 | ER Document Report ---
ED Medical Screen (RME) - General Chief Complaint: Urinary Problem Stated Complaint: VOMITING, DIARRHEA, URINARY ISSUE Time Seen by Provider: 09/05/18 19:11 TRAVEL OUTSIDE OF THE [place] IN LAST 30 DAYS: No - HPI Notes: 09/05/18 19:14 Nausea vomiting diarrhea states finished Levaquin for UTI does not feel any better - Related Data Allergies/Adverse Reactions: No Known Allergies Allergy (Verified 08/31/18 10:23) Past Medical History Renal/ Medical History: Reports: Hx Kidney Stones. Denies: Hx Peritoneal Dialysis Psychiatric Medical History: Reports: Hx Bipolar Disorder, Hx Borderline Personality Disorder, Hx Depression Past Surgical History: Reports: Hx Cholecystectomy, Hx Genitourinary Surgery - Suprapubic catheter - Immunizations Immunizations up to date: Yes Review of Systems - Review of Systems Constitutional: Other - Nausea vomiting diarrhea feeling unwell Physical Exam - Vital signs Vitals: Temp Pulse Resp BP Pulse Ox 98.4 F 90 15 147/87 H 98 09/05/18 18:19 09/05/18 18:19 09/05/18 18:19 09/05/18 18:19 09/05/18 18:19 - Respiratory Respiratory status: No respiratory distress Chest status: Nontender Breath sounds: Normal Chest palpation: Normal - Cardiovascular Rhythm: Regular Heart sounds: Normal auscultation Course - Vital Signs Vital signs: Temp Pulse Resp BP Pulse Ox 98.4 F 90 15 147/87 H 98 09/05/18 18:19 09/05/18 18:19 09/05/18 18:19 09/05/18 18:19 09/05/18 18:19
[2018-09-05] MEDS ORDERED: OXYCODONE-ACETAMINOPHEN 5-325 MG TABLET PO ONE (19:45)
[2018-09-05] MEDS ORDERED: PROMETHAZINE HCL 25 MG TABLET PO ONE (19:46)
--- NOTE | 2018-09-05 19:48 | ER Document Report ---
ED GI/ - General Chief Complaint: Urinary Problem Stated Complaint: VOMITING, DIARRHEA, URINARY ISSUE Time Seen by Provider: 09/05/18 19:11 Notes: Patient is a 47-year-old male that comes to the emergency department for chief complaint of lower abdominal pain, nausea, vomiting. He states he has had symptoms intermittently for 3 days. Denies fever. States he feels like he has a urinary tract infection. Reports he completed Levaquin 1 week ago. He has a suprapubic catheter, he follows with [facility], reports history of transverse myelitis causing the need for the catheter. Past medical history also includes pain management, bipolar, cholecystectomy. TRAVEL OUTSIDE OF THE [place] IN LAST 30 DAYS: No - Related Data Allergies/Adverse Reactions: No Known Allergies Allergy (Verified 08/31/18 10:23) Past Medical History - General Information source: Patient - Social History Smoking Status: Never Smoker Frequency of alcohol use: None Drug Abuse: None Lives with: Alone Family History: Reviewed & Not Pertinent, Hypertension Patient has suicidal ideation: No Patient has homicidal ideation: No Renal/ Medical History: Reports: Hx Kidney Stones. Denies: Hx Peritoneal Dialysis Psychiatric Medical History: Reports: Hx Bipolar Disorder, Hx Borderline Personality Disorder, Hx Depression Past Surgical History: Reports: Hx Cholecystectomy, Hx Genitourinary Surgery - Suprapubic catheter - Immunizations Immunizations up to date: Yes Review of Systems - Review of Systems Constitutional: No symptoms reported EENT: No symptoms reported Cardiovascular: No symptoms reported Respiratory: No symptoms reported Gastrointestinal: See HPI Genitourinary: See HPI Male Genitourinary: No symptoms reported Musculoskeletal: No symptoms reported Skin: No symptoms reported Hematologic/Lymphatic: No symptoms reported Neurological/Psychological: No symptoms reported Physical Exam - Vital signs Vitals: Temp Pulse Resp BP Pulse Ox 98.4 F 90 15 147/87 H 98 09/05/18 18:19 09/05/18 18:19 09/05/18 18:19 09/05/18 18:19 09/05/18 18:19 - Notes Notes: GENERAL: Alert, interacts well. No acute distress. HEAD: Normocephalic, atraumatic. EYES: Pupils equal, round, and reactive to light. Extraocular movements intact. ENT: Oral mucosa moist, tongue midline. NECK: Full range of motion. Supple. Trachea midline. LUNGS: Clear to auscultation bilaterally, no wheezes, rales, or rhonchi. No respiratory distress. HEART: Regular rate and rhythm. No murmur ABDOMEN: Mild suprapubic tenderness. No guarding or noted distention. Bowel sounds present in all 4 quadrants. GENITOURINARY: Suprapubic catheter in place without noted surrounding erythema, discharge, bleeding. Vo bag on the right leg filled with urine. EXTREMITIES: Moves all 4 extremities spontaneously. No edema, normal radial and dorsalis pedis pulses bilaterally. No cyanosis. BACK: no cervical, thoracic, lumbar midline tenderness. No saddle anesthesia, normal distal neurovascular exam. NEUROLOGICAL: Alert and oriented x3. Normal speech. [cranial nerves II through XII grossly intact]. PSYCH: Steady stream of speaking with tangential thought. SKIN: Warm, dry, normal turgor. No rashes or lesions noted. Course - Re-evaluation Re-evalutation: CBC shows mild microcytic anemia, no leukocytosis. Chemistry generally unremarkable. Urinalysis shows moderate leukocyte esterase and white blood cells, otherwise unremarkable. Patient is not tachycardic, febrile, or hypotensive. He is very well-appearing and talkative. Soft abdomen with minimal suprapubic tenderness. Lab workup does not indicate dehydration, patient did not have any vomiting during his evaluation, he tolerated p.o. without any difficulty. Vo catheter bag was replaced, he has clear urine draining into the bag. He was provided with another bag on his request. Patient will be covered with Keflex, urine will be cultured, discussed follow-up, discussed return precautions. Patient states satisfaction and agreement with plan. - Vital Signs Vital signs: Temp Pulse Resp BP Pulse Ox 98.9 F 89 20 156/87 H 97 09/05/18 22:00 09/05/18 22:00 09/05/18 22:00 09/05/18 22:00 09/05/18 22:00 - Laboratory Result Diagrams: 09/05/18 20:45 09/05/18 20:45 Laboratory results interpreted by me: 09/05/18 09/05/18 09/05/18 20:45 20:45 20:45 Hgb 11.1 L Hct 35.2 L MCV 76 L MCH 24.0 L MCHC 31.7 L RDW 18.6 H Carbon Dioxide 32 H Total Protein 6.1 L Albumin 3.4 L Urine Blood SMALL H Ur Leukocyte Esterase MODERATE H Discharge - Discharge Clinical Impression: Abdominal pain Qualifiers: Abdominal location: lower abdomen, unspecified Qualified Code(s): R10.30 - Lower abdominal pain, unspecified Vomiting Qualifiers: Vomiting type: unspecified Vomiting Intractability: non-intractable Nausea presence: with nausea Qualified Code(s): R11.2 - Nausea with vomiting, unspecified Urinary tract infection Qualifiers: Urinary tract infection type: catheter-associated UTI Indwelling urinary catheter type: unspecified Encounter type: initial encounter Qualified Code(s): T83.511A - Infection and inflammatory reaction due to indwelling urethral catheter, initial encounter Condition: Stable Disposition: HOME, SELF-CARE Additional Instructions: Your urine does indicate developing infection. Remaining evaluation does not show any concerning acute findings at this time. Recommendation is to take the Keflex antibiotics as prescribed, take the Phenergan if needed for nausea, follow-up with your primary care in the next several days. Return if you worsen including fever of 100.4 or greater, uncontrolled vomiting , severe abdominal pain, swelling of the abdomen, or any other concerning or worsening symptoms. Prescriptions: Cephalexin Monohydrate [Keflex 500 mg Capsule] 500 mg PO BID #14 capsule Promethazine HCl [Phenergan 25 mg Tablet] 25 mg PO Q6H PRN #20 tablet PRN Reason:
[2018-09-05 21:02] LABS: HEMATOCRIT 35.2 % (37.9-51.0); HEMOGLOBIN 11.1 g/dL (13.5-17.0); MEAN CORPUSCULAR HGB CONC 31.7 g/dL (32.0-36.0); MEAN CORPUSCULAR VOLUME 76 fl (80-97); PLATELET COUNT 330 10^3/uL (150-450); RED BLOOD COUNT 4.64 10^6/uL (4.35-5.55); RED CELL DISTRIBUTION WIDTH 18.6 % (11.5-14.0); WHITE BLOOD COUNT 8.7 10^3/uL (4.0-10.5)
[2018-09-05 21:08] LABS: APPEARANCE,URINE SLIGHTLY-CLOUDY; BILIRUBIN,URINE NEGATIVE (NEGATIVE); COLOR,URINE STRAW; GLUCOSE, URINE NEGATIVE (NEGATIVE); KETONES,URINE NEGATIVE (NEGATIVE); LEUKOCYTE ESTERASE,URINE MODERATE (NEGATIVE); NITRITE,URINE NEGATIVE (NEGATIVE); PROTEIN,URINE NEGATIVE (NEGATIVE); URINE SPECIFIC GRAVITY 1.004; UROBILINOGEN,URINE NEGATIVE mg/dL (<2.0)
[2018-09-05 21:25] LABS: ALANINE AMINOTRANSFERASE 40 U/L (21-72); ALBUMIN 3.4 g/dL (3.5-5.0); ALKALINE PHOSPHATASE 62 U/L (38-126); ANION GAP 9 (5-19); ASPARTATE AMINO TRANSFERASE 30 U/L (17-59); BILIRUBIN,DIRECT 0.1 mg/dL (0.0-0.4); BILIRUBIN,TOTAL 0.5 mg/dL (0.2-1.3); BLOOD UREA NITROGEN 8 mg/dL (7-20); CARBON DIOXIDE 32 mmol/L (22-30); CHLORIDE 100 mmol/L (98-107); GLUCOSE 78 mg/dL (75-110); SODIUM 140.9 mmol/L (137-145); TOTAL PROTEIN 6.1 g/dL (6.3-8.2)
[2018-09-05 21:28] LABS: ABSOLUTE LYMPHOCYTES# (MANUAL) 2.2 10^3/uL (0.5-4.7); ABSOLUTE MONOCYTES # (MANUAL) 0.5 10^3/uL (0.1-1.4); ABSOLUTE NEUTROPHILS# (MANUAL) 5.5 10^3/uL (1.7-8.2); BASOPHILS % (MANUAL) 1 % (0-2); EOSINOPHILS % (MANUAL) 5 % (0-6); LYMPHOCYTES % (MANUAL) 25 % (13-45); MONOCYTES % (MANUAL) 6 % (3-13); POLYCHROMASIA SLIGHT; SEGMENTED NEUTROPHILS % (MAN) 63 % (42-78); TOTAL CELLS COUNTED 100
[2018-09-05 21:29] LABS: ANISOCYTOSIS 1+; OVALOCYTES SLIGHT; PLATELET COMMENT ADEQUATE; POIKILOCYTOSIS SLIGHT; TARGET CELLS SLIGHT
[2018-09-05] MEDS ORDERED: CEPHALEXIN 500 MG CAPSULE PO ONE (21:47)
[2018-09-05 22:30] VITALS: BP 156/87
== END 2018-09-05 22:00 | disposition home or self-care (01) ==
LOC: ER 18:15
DX: T83.511A Infection and inflammatory reaction due to indwelling urethral catheter, initial encounter (principal); D64.9 Anemia, unspecified; R11.2 Nausea with vomiting, unspecified; R10.30 Lower abdominal pain, unspecified; R19.7 Diarrhea, unspecified; F31.9 Bipolar disorder, unspecified; F60.3 Borderline personality disorder; Z90.49 Acquired absence of other specified parts of digestive tract; Z87.442 Personal history of urinary calculi
CPT/HCPCS: 99284; 51702; 36415; 85025; 80053; 81001; A9270 ×3

== ENCOUNTER 2018-09-10 17:27 | Emergency (ER) | payer MEDICARE ==
[2018-09-10 17:47] VITALS: BP 139/82
[2018-09-10] MEDS ORDERED: CEPHALEXIN 500 MG CAPSULE PO ONE (18:00)
--- NOTE | 2018-09-10 18:02 | ER Document Report ---
HPI - HPI Patient complains to provider of: Right third finger pain Onset: Other - 3 days Onset/Duration: Worse Quality of pain: Achy Pain Level: 5 Context: Patient states that he had a ingrown fingernail that he has been attempting to trim and pull at. Patient complains of tenderness and swelling to the fingertip. Patient states that he was recently here and given a prescription for Keflex but reports that he lost the prescription Associated Symptoms: Other - Right third finger pain. denies: Fever, Vomiting Exacerbated by: Movement Relieved by: Denies Similar symptoms previously: No Recently seen / treated by doctor: Yes - ROS ROS below otherwise negative: Yes Systems Reviewed and Negative: Yes All other systems reviewed and negative - CONSTITUTIONAL Constitutional: DENIES: Fever, Chills - MUSCULOSKELETAL Musculoskeletal: REPORTS: Extremity pain - R third finger - DERM Skin Color: Erythema Past Medical History - General Information source: Patient - Social History Smoking Status: Never Smoker Occupation: None Family History: Reviewed & Not Pertinent, Hypertension Patient has suicidal ideation: No Patient has homicidal ideation: No Renal/ Medical History: Reports: Hx Kidney Stones. Denies: Hx Peritoneal Dialysis Psychiatric Medical History: Reports: Hx Bipolar Disorder, Hx Borderline Personality Disorder, Hx Depression Past Surgical History: Reports: Hx Cholecystectomy, Hx Genitourinary Surgery - Suprapubic catheter - Immunizations Immunizations up to date: Yes Vertical Provider Document - CONSTITUTIONAL Agree With Documented VS: Yes Exam Limitations: No Limitations General Appearance: WD/WN, No Apparent Distress - INFECTION CONTROL TRAVEL OUTSIDE OF THE [place] IN LAST 30 DAYS: No - HEENT HEENT: Atraumatic, Normocephalic - NECK Neck: Normal Inspection - RESPIRATORY Respiratory: No Respiratory Distress - CARDIOVASCULAR Pulses: Normal: Radial - MUSCULOSKELETAL/EXTREMETIES Musculoskeletal/Extremeties: MAEW, FROM, Tender - Right third fingertip - NEURO Level of Consciousness: Awake, Alert, Appropriate Motor/Sensory: No Motor Deficit - DERM Integumentary: Warm, Dry Notes: Mild erythema to radial aspect of right third finger, no purulent drainage noted , no concern for Felon. Course - Re-evaluation Re-evalutation: 09/10/18 18:00 Patient was seen here recently treated for UTI and given a prescription for Keflex. Patient states that he lost the prescription and did not get it filled. Patient with what appears to be an early paronychia to the finger. Patient encouraged to soak finger several times each day in warm soapy water and to get prescription filled and take as directed. - Vital Signs Vital signs: Temp Pulse Resp BP Pulse Ox 98.4 F 85 20 139/82 H 98 09/10/18 17:45 09/10/18 17:45 09/10/18 17:45 09/10/18 17:45 09/10/18 17:45 Discharge - Discharge Clinical Impression: Paronychia of finger Qualifiers: Laterality: right Qualified Code(s): L03.011 - Cellulitis of right finger Condition: Stable Disposition: HOME, SELF-CARE Instructions: Cephalexin ([facility]), Paronychia ([facility]) Additional Instructions: Return immediately for any new or worsening symptoms Followup with your primary care provider, call tomorrow to make a followup appointment Soak finger in warm soapy water at least 3 times each day. Do not pick at your cuticles Prescriptions: Cephalexin Monohydrate [Keflex 500 mg Capsule] 500 mg PO Q6H 5 Days capsule Referrals: [facility] [Provider Group] - Follow up tomorrow
== END 2018-09-10 18:12 | disposition home or self-care (01) ==
LOC: ER 17:27
DX: L03.011 Cellulitis of right finger (principal); M79.644 Pain in right finger(s); M79.89 Other specified soft tissue disorders
CPT/HCPCS: 99283; A9270

== ENCOUNTER 2018-09-10 21:42 | Emergency (ER) | payer MEDICARE ==
[2018-09-10 21:59] VITALS: BP 124/73
--- NOTE | 2018-09-10 22:06 | ER Document Report ---
ED General - General Chief Complaint: Wound Recheck Stated Complaint: FINGER PROBLEM Notes: Right finger pain onset 2 days ago with redness. Seen 2 days ago prescribed Keflex. Patient was apprehended by police in the waiting room because of aggressive behavior and disrespectful behavior toward staff. TRAVEL OUTSIDE OF THE [place] IN LAST 30 DAYS: No - Related Data Allergies/Adverse Reactions: No Known Allergies Allergy (Verified 09/10/18 17:27) Past Medical History - Social History Smoking Status: Current Every Day Smoker Family History: Reviewed & Not Pertinent, Hypertension Renal/ Medical History: Reports: Hx Kidney Stones. Denies: Hx Peritoneal Dialysis Psychiatric Medical History: Reports: Hx Bipolar Disorder, Hx Borderline Personality Disorder, Hx Depression Past Surgical History: Reports: Hx Cholecystectomy, Hx Genitourinary Surgery - Suprapubic catheter - Immunizations Immunizations up to date: Yes Review of Systems - Review of Systems Notes: Review of systems: No fever. Positive finger pain. Physical exam: Normal right ring finger. Faint redness around the cuticle but no obvious abscess, felon or other infection. Neuro: Awake and alert Psychiatric: Shouting obscenities Physical Exam - Vital signs Vitals: Temp Pulse Resp BP Pulse Ox 97.7 F 79 18 124/73 97 09/10/18 21:58 09/10/18 21:58 09/10/18 21:58 09/10/18 21:58 09/10/18 21:58 Course - Re-evaluation Re-evalutation: 09/10/18 22:06 Finger pain no infection. Removed by police from the emergency department for aggressive behavior. No emergency medical condition was identified. - Vital Signs Vital signs: Temp Pulse Resp BP Pulse Ox 97.7 F 79 18 124/73 97 09/10/18 21:58 09/10/18 21:58 09/10/18 21:58 09/10/18 21:58 09/10/18 21:58 Discharge - Discharge Clinical Impression: Finger pain, right Condition: Good Disposition: HOME, SELF-CARE Additional Instructions: Been evaluated for finger pain in the emergency departmentyou are already on antibiotics and I do not see signs of infection. Please continue to treat with Tylenol and Motrin and elevation and follow-up with your primary care doctor.
== END 2018-09-10 22:15 | disposition home or self-care (01) ==
LOC: ER 21:42
DX: M79.644 Pain in right finger(s) (principal); F91.9 Conduct disorder, unspecified; F17.200 Nicotine dependence, unspecified, uncomplicated
CPT/HCPCS: 99283

== ENCOUNTER 2018-09-16 18:59 | Emergency (ER) | payer MEDICARE ==
[2018-09-16 19:17] VITALS: BP 150/75
[2018-09-16 21:10] LABS: ABSOLUTE BASOPHILS # (AUTO) 0.1 10^3/uL (0.0-0.2); ABSOLUTE EOSINOPHILS # (AUTO) 0.3 10^3/uL (0.0-0.6); ABSOLUTE LYMPHOCYTES (AUTO) 1.6 10^3/uL (0.5-4.7); ABSOLUTE MONOCYTES (AUTO) 1.2 10^3/uL (0.1-1.4); ABSOLUTE NEUT (AUTO) 5.5 10^3/uL (1.7-8.2); BASOPHILS % (AUTO) 1.3 % (0-2); EOSINOPHILS % (AUTO) 3.9 % (0-6); HEMOGLOBIN 11.4 g/dL (13.5-17.0); LYMPHOCYTES % (AUTO) 18.3 % (13-45); MEAN CORPUSCULAR HEMOGLOBIN 24.6 pg (27.0-33.4); MEAN CORPUSCULAR HGB CONC 32.5 g/dL (32.0-36.0); MEAN CORPUSCULAR VOLUME 76 fl (80-97); MONOCYTES % (AUTO) 13.4 % (3-13); PLATELET COUNT 358 10^3/uL (150-450); RED BLOOD COUNT 4.62 10^6/uL (4.35-5.55); RED CELL DISTRIBUTION WIDTH 18.1 % (11.5-14.0); SEGMENTED NEUTROPHILS % (AUTO) 63.1 % (42-78); TOTAL CELLS COUNTED % (AUTO) 100 %; WHITE BLOOD COUNT 8.7 10^3/uL (4.0-10.5)
[2018-09-16 21:20] LABS: ALANINE AMINOTRANSFERASE 36 U/L (21-72); ALBUMIN 3.7 g/dL (3.5-5.0); ALKALINE PHOSPHATASE 60 U/L (38-126); ANION GAP 11 (5-19); ASPARTATE AMINO TRANSFERASE 29 U/L (17-59); BILIRUBIN,DIRECT 0.1 mg/dL (0.0-0.4); BILIRUBIN,TOTAL 0.4 mg/dL (0.2-1.3); BLOOD UREA NITROGEN 6 mg/dL (7-20); CALCIUM 9.1 mg/dL (8.4-10.2); CARBON DIOXIDE 29 mmol/L (22-30); CHLORIDE 102 mmol/L (98-107); GLUCOSE 67 mg/dL (75-110); LIPASE 238.2 U/L (23-300); POTASSIUM 4.1 mmol/L (3.6-5.0); SODIUM 141.5 mmol/L (137-145); TOTAL PROTEIN 6.4 g/dL (6.3-8.2)
[2018-09-16] MEDS ORDERED: NORMAL SALINE 1000 ML 1,000 ML IV ONE (22:53)
[2018-09-16] MEDS ORDERED: ONDANSETRON HCL INJ/PF 4 MG/2 ML SDV IV ONE (22:53)
[2018-09-16] MEDS ORDERED: DIPHENHYDRAMINE HCL 50 MG/ML VIAL IV ONE (22:53)
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
[2018-09-16] MEDS ORDERED: MORPHINE SULFATE 10 MG/ML INJ IV ONE (22:54)
== END 2018-09-17 00:31 | disposition home or self-care (01) ==
LOC: ER 18:59
DX: R11.2 Nausea with vomiting, unspecified (principal); R19.7 Diarrhea, unspecified; R10.9 Unspecified abdominal pain; G89.29 Other chronic pain; F17.210 Nicotine dependence, cigarettes, uncomplicated
CPT/HCPCS: 99284; 96361; 96374; 96375; 36415; 83690; 85025; 80053; J1200; J2270; J2405; J7030

== ENCOUNTER 2018-09-18 23:20 | Emergency (ER) | payer MEDICARE ==
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
[2018-09-19] MEDS ORDERED: ACETAMINOPHEN 325 MG TABLET PO ONE (00:38)
[2018-09-19] MEDS ORDERED: IBUPROFEN 600 MG TABLET PO ONE (00:39)
[2018-09-19] MEDS ORDERED: TETRACAINE HCL 0.5% OPH SOLN 4 ML OD ONE (00:40)
[2018-09-19] MEDS ORDERED: OXYCODONE HCL IR 5 MG TABLET PO ONE (01:08)
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
[2018-09-19] MEDS ORDERED: CEPHALEXIN 500 MG CAPSULE PO ONE (02:12)
[2018-09-19] MEDS ORDERED: OXYCODONE HCL IR 5 MG TABLET PO PRN (03:09)
[2018-09-19] MEDS ORDERED: LORAZEPAM 1 MG TABLET PO PRN (03:10)
[2018-09-19 09:56] VITALS: BP 128/72
[2018-09-19] MEDS ORDERED: HYDROCODONE/ACETAMINOPHEN 5-325 MG (6 TAB/ER DISP) PO PRN (14:23)
[2018-09-19] MEDS ORDERED: HYDROCODONE/ACETAMINOPHEN 5-325 MG (6 TAB/ER DISP) ONE (14:34)
== END 2018-09-19 09:54 | disposition home or self-care (01) ==
LOC: ER 23:20
DX: S02.40CA Maxillary fracture, right side, initial encounter for closed fracture (principal); S02.40EA Zygomatic fracture, right side, initial encounter for closed fracture; Y09 Assault by unspecified means; Y92.59 Other trade areas as the place of occurrence of the external cause; J34.89 Other specified disorders of nose and nasal sinuses; H53.8 Other visual disturbances
CPT/HCPCS: 99284; 70450; 70486; A9270 ×5; J3490

== ENCOUNTER 2018-09-21 19:05 | Emergency (ER) | payer MEDICARE ==
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
[2018-09-21] MEDS ORDERED: TETRACAINE HCL 0.5% OPH SOLN 4 ML OD ONE (21:31)
[2018-09-21] MEDS ORDERED: ONDANSETRON 4 MG TAB.RAPDIS PO ONE (21:57)
[2018-09-21] MEDS ORDERED: OXYCODONE HCL IR 5 MG TABLET PO ONE (21:57)
[2018-09-21] MEDS ORDERED: POLYMYXIN B SULFATE/TMP OPH SOLN (10 ML/ER DISP) OD PRN (22:10)
[2018-09-21 22:39] VITALS: BP 134/75
== END 2018-09-21 22:39 | disposition home or self-care (01) ==
LOC: ER 19:05
DX: R51 Headache (principal); R11.0 Nausea; H57.9 Unspecified disorder of eye and adnexa; F17.200 Nicotine dependence, unspecified, uncomplicated; Z87.442 Personal history of urinary calculi; Z90.49 Acquired absence of other specified parts of digestive tract
CPT/HCPCS: 99283; J3490 ×2

== ENCOUNTER 2018-09-25 04:16 | Emergency (ER) | payer MEDICARE ==
[2018-09-25] MEDS ORDERED: IBUPROFEN 600 MG TABLET ONE (05:43)
[2018-09-25] MEDS ORDERED: IBUPROFEN 600 MG TABLET PO ONE (07:00)
[2018-09-25 07:29] LABS: APPEARANCE,URINE SLIGHTLY-CLOUDY; BILIRUBIN,URINE NEGATIVE (NEGATIVE); COLOR,URINE YELLOW; GLUCOSE, URINE NEGATIVE (NEGATIVE); KETONES,URINE NEGATIVE (NEGATIVE); LEUKOCYTE ESTERASE,URINE LARGE (NEGATIVE); NITRITE,URINE NEGATIVE (NEGATIVE); PROTEIN,URINE 30 mg/dL (NEGATIVE); URINE SPECIFIC GRAVITY 1.012; UROBILINOGEN,URINE NEGATIVE mg/dL (<2.0)
== END 2018-09-25 06:45 | disposition home or self-care (01) ==
LOC: ER 04:16
DX: Z46.6 Encounter for fitting and adjustment of urinary device (principal)
CPT/HCPCS: 51702; 81001; 99283

== ENCOUNTER 2018-09-27 00:18 | Emergency (ER) | payer MEDICARE ==
[2018-09-27 00:26] VITALS: BP 131/87
[2018-09-27] MEDS ORDERED: OPIUM/BELLADONNA ALKALOIDS 30-16.2 MG SUPP.RECT PR ONE (00:31)
--- NOTE | 2018-09-27 00:38 | ER Document Report ---
ED General - General Chief Complaint: Pain With Urination Stated Complaint: URINARY ISSUE Time Seen by Provider: 09/27/18 00:31 Notes: 87-year-old male with a history of neurodegenerative disease neurogenic bladder permanent suprapubic tube and multiple UTIs, as well as assaultive behavior in the ED presents with her spasm. Intermittent sharp lower abdominal pain associated with intermittent clogging of his catheter. No blood. States he had a fever. States he is on 2 different antibiotics for a UTI. States he normally takes Ditropan but was on the patch because he kept forgetting to take the pills and is now out of the patch and cannot see his urologist for 3 weeks. TRAVEL OUTSIDE OF THE [place] IN LAST 30 DAYS: No - Related Data Allergies/Adverse Reactions: No Known Allergies Allergy (Verified 09/21/18 19:06) Past Medical History - General Information source: Patient - Social History Smoking Status: Unknown if Ever Smoked Family History: Reviewed & Not Pertinent, Hypertension - Medical History Notes: Extensive-see chart Renal/ Medical History: Reports: Hx Kidney Stones. Denies: Hx Peritoneal Dialysis Psychiatric Medical History: Reports: Hx Bipolar Disorder, Hx Borderline Personality Disorder, Hx Depression Past Surgical History: Reports: Hx Cholecystectomy, Hx Genitourinary Surgery - Suprapubic catheter - Immunizations Immunizations up to date: Yes Review of Systems - Review of Systems Notes: REVIEW OF SYSTEMS GEN: Fever ENT: Denies sore throat, nasal discharge, ear pain EYES: Denies blurry vision, eye pain, discharge CV: Denies chest pain, palpitations, edema RESP: Denies cough, shortness of breath, wheezing GI: Denies abdominal pain, nausea, vomiting, diarrhea MSK: Denies joint pain/swelling, edema, SKIN: Denies rash, skin lesions LYMPH: Denies swollen glands/lymph nodes NEURO: Denies headache, focal weakness or numbness, dizziness PSYCH: Denies depression, suicidal or homicidal ideation PHYSICAL EXAMINATION General: No acute distress, well-nourished Head: Atraumatic, normocephalic ENT: Mouth normal, oropharynx moist, no exudates or tonsillar enlargement Eyes: Conjunctiva normal, pupils equal, lids normal Neck: No JVD, supple, no guarding CVS: Normal rate, regular rhythm, no murmurs Resp: No resp distress, equal and normal breath sounds bilaterally GI: Nondistended, soft, no tenderness to palpation, no rebound or guarding pubic tube appears normal with clear yellow urine in bag no tenderness Ext: No deformities, no edema, normal range of motion in upper and lower ext Back: No CVA or midline TTP Skin: No rash, warm Lymphatic: No lymphadeopathy noted Neuro: Awake, alert. Face symmetric. GCS 15. Physical Exam - Vital signs Vitals: Temp Pulse Resp BP Pulse Ox 97.7 F 96 18 131/87 H 97 09/27/18 00:19 09/27/18 00:19 09/27/18 00:19 09/27/18 00:19 09/27/18 00:19 Course - Re-evaluation Re-evalutation: 09/27/18 00:47 Patient presents with bladder spasms likely in the setting of noncompliance with Ditropan. Though he has a reported fever at home he is afebrile here and is already on 2 antibiotics for a UTI. Do not believe this requires workupshe says this was recently diagnosed and is being treated. He does not need any adjustment of the suprapubic tube at this time his vitals are normal, I will give him a dose of Ditropan here, provide a prescription for 1 patch and asked him to follow-up with urology. I have discussed with the patient there likely diagnosis, aftercare plan, follow-up plans and my usual and customary return precautions. They verbalized understanding of this. - Vital Signs Vital signs: Temp Pulse Resp BP Pulse Ox 97.7 F 96 18 131/87 H 97 09/27/18 00:19 09/27/18 00:19 09/27/18 00:19 09/27/18 00:19 09/27/18 00:19 Discharge - Discharge Clinical Impression: Bladder spasm Condition: Good Disposition: ADMITTED INPATIENT Instructions: Vo Catheter Care ([facility]) Additional Instructions: Please follow-up with your urologist for further management of your bladder spasms and chronic urinary tract infections Prescriptions: Oxybutynin [Oxytrol] 1 each TD ONCE PRN #1 patch.tdsw PRN Reason: Referrals: [facility],NO [Primary Care Provider] - Follow up as needed
[2018-09-27] MEDS ORDERED: OXYBUTYNIN CHLORIDE 5 MG TABLET PO ONE (00:40)
== END 2018-09-27 00:54 | disposition home or self-care (01) ==
LOC: ER 00:18
DX: N31.9 Neuromuscular dysfunction of bladder, unspecified (principal); T44.3X6A Underdosing of other parasympatholytics [anticholinergics and antimuscarinics] and spasmolytics, initial encounter; Z91.128 Patient's intentional underdosing of medication regimen for other reason; Z91.14 Patient's other noncompliance with medication regimen; N39.0 Urinary tract infection, site not specified
CPT/HCPCS: 99284; A9270

== ENCOUNTER 2018-09-29 01:22 | Emergency (ER) | payer MEDICARE ==
[2018-09-29 01:35] VITALS: BP 137/82
[2018-09-29] MEDS ORDERED: KETOROLAC TROMETHAMINE 60 MG/2 ML SDV IM ONE (02:34)
--- NOTE | 2018-09-29 03:24 | RADIOLOGY REPORT (SQ) ---
EXAM DESCRIPTION: XR KNEE 3 VIEWS COMPLETED DATE/TME: 09/29/2018 02:34 CLINICAL HISTORY: 47 years, Male, pain, swelling COMPARISON: None. NUMBER OF VIEWS: 4 TECHNIQUE: 4 view right knee LIMITATIONS: None. FINDINGS: Osteopenia with tricompartmental degenerative change. Negative for acute fracture or dislocation. No definitive joint effusion. IMPRESSION: Osteopenia with tricompartmental degenerative change 2010 [employer] [employer]- All Rights Reserved
[2018-09-29] MEDS ORDERED: TRAMADOL HCL 50 MG TABLET PO ONE (03:40)
--- NOTE | 2018-09-29 03:47 | ER Document Report ---
ED General - General Chief Complaint: Knee Injury Stated Complaint: KNEE PAIN Time Seen by Provider: 09/29/18 01:52 Notes: Patient is a 47-year-old male who presents with complaints of right knee pain. He states that he twisted his knee, felt a pop, and then has had swelling to the area since that time. He notes a dull, throbbing, constant pain to the knee. Nothing improves the pain. Attempting a walking worsens the pain. He notes that he has had long-term issues with both of his knees and has been advised that he needs a knee arthroplasty in the past but has not followed through. He denies any weakness or numbness to the extremity. He has noted swelling to the knee since the injury. He has not seen his primary care doctor regarding today's concerns. TRAVEL OUTSIDE OF THE [place] IN LAST 30 DAYS: No - Related Data Allergies/Adverse Reactions: No Known Allergies Allergy (Verified 09/21/18 19:06) Past Medical History - General Information source: Patient - Social History Smoking Status: Never Smoker Frequency of alcohol use: None Drug Abuse: None Lives with: Alone Family History: Reviewed & Not Pertinent, Hypertension Patient has suicidal ideation: No Patient has homicidal ideation: No Renal/ Medical History: Reports: Hx Kidney Stones. Denies: Hx Peritoneal Dialysis Psychiatric Medical History: Reports: Hx Bipolar Disorder, Hx Borderline Personality Disorder, Hx Depression Past Surgical History: Reports: Hx Cholecystectomy, Hx Genitourinary Surgery - Suprapubic catheter - Immunizations Immunizations up to date: Yes Review of Systems - Review of Systems Notes: Constitutional: Negative for fever. HENT: Negative for sore throat. Eyes: Negative for visual changes. Cardiovascular: Negative for chest pain. Respiratory: Negative for shortness of breath. Gastrointestinal: Negative for abdominal pain, vomiting or diarrhea. Genitourinary: Negative for dysuria. Musculoskeletal: Right knee pain Skin: Negative for rash. Neurological: Negative for headaches, weakness or numbness. 10 point ROS negative except as marked above and in HPI. Physical Exam - Vital signs Vitals: Temp Pulse Resp BP Pulse Ox 97.5 F 84 14 137/82 H 100 09/29/18 01:31 09/29/18 01:31 09/29/18 01:31 09/29/18 01:31 09/29/18 01:31 Interpretation: Normal Notes: PHYSICAL EXAMINATION: GENERAL: Well-appearing, well-nourished and in no acute distress. HEAD: Atraumatic, normocephalic. EYES: sclera anicteric, conjunctiva are normal. ENT: Moist mucous membranes. NECK: Normal range of motion LUNGS: Normal work of breathing HEART: 2+ radial pulses bilaterally EXTREMITIES: Swelling of the right knee joint, pain with flexion extension although the patient is able to fully flex to 90 hold the leg in extension. NEUROLOGICAL: No focal neurological deficits. Moves all extremities spontaneously and on command. PSYCH: Normal mood, normal affect. SKIN: Warm, Dry, normal turgor, no rashes or lesions noted. Course - Re-evaluation Re-evalutation: 09/29/18 04:48 No evidence of a septic joint, gout flare, dislocation, or fracture on exam and imaging. History and exam appear most consistent with irritation of underlying osteoarthritis particular based on imaging and history. Vitals wnl. At this time, I do not see an indication for labs or further imaging. Will discharge with conservative measures, return precautions, and follow-up recommendations. At this time will discharge with return precautions and follow-up recommendations. Verbal discharge instructions given a the bedside and opportunity for questions given. Medication warnings reviewed. Patient is in agreement with this plan and has verbalized understanding of return precautions and the need for primary care follow-up in the next 24-72 hours. - Vital Signs Vital signs: Temp Pulse Resp BP Pulse Ox 97.5 F 84 14 137/82 H 100 09/29/18 01:31 09/29/18 01:31 09/29/18 01:31 09/29/18 01:31 09/29/18 01:31 - Diagnostic Test Radiology reviewed: Image reviewed, Reports reviewed Radiology results interpreted by me: 09/29/18 03:42 Right knee x-ray: Degenerative changes, no acute fracture Discharge - Discharge Clinical Impression: Right knee pain Qualifiers: Chronicity: acute Qualified Code(s): M25.561 - Pain in right knee Osteoarthritis of right knee Qualifiers: Osteoarthritis type: primary Qualified Code(s): M17.11 - Unilateral primary osteoarthritis, right knee Condition: Good Disposition: HOME, SELF-CARE Additional Instructions: Your x-ray does not show any acute fracture today. Your symptoms are likely due to underlying arthritis of the knee. You should continue to take anti- inflammatories such as ibuprofen 600 mg every 6 hours. Continue to apply ice to the area is much your able. I would advise follow-up with orthopedics given the degenerative changes in your knee and the amount of swelling present. Please return immediately if you develop weakness, numbness, spreading redness from the area, or any other symptoms that are concerning to you. Prescriptions: Tramadol HCl [Ultram] 50 mg PO Q6HP PRN #6 tablet PRN Reason:
== END 2018-09-29 04:14 | disposition home or self-care (01) ==
LOC: ER 01:22
DX: M25.561 Pain in right knee (principal); X50.1XXA Overexertion from prolonged static or awkward postures, initial encounter; M17.11 Unilateral primary osteoarthritis, right knee; M25.461 Effusion, right knee
CPT/HCPCS: 99284; 96372; 73562; L1830; J1885; A9270

== ENCOUNTER 2018-09-30 02:15 | Emergency (ER) | payer MEDICARE ==
[2018-09-30 02:34] VITALS: BP 155/91
[2018-09-30] MEDS ORDERED: OXYBUTYNIN CHLORIDE 5 MG TABLET PO ONE (02:39)
--- NOTE | 2018-09-30 02:42 | ER Document Report ---
HPI - HPI Time Seen by Provider: 09/30/18 02:39 Pain Level: 1 Notes: Patient is a 47-year-old male who presents with chief complaint of request for refill of his Ditropan. Patient states he usually takes Ditropan 5 mg twice daily. He is requesting the patches as he states that he always forgets to take his medication. Patient has a suprapubic catheter in place. Patient reports he has a appointment with his urologist on the in [place]. He denies any other symptoms or complaints. - CONSTITUTIONAL Constitutional: DENIES: Fever, Chills - EENT EENT: DENIES: Sore Throat, Ear Pain, Eye problems - NEURO Neurology: DENIES: Headache, Weakness, Vision blurred, Dizzinesss / Vertigo - CARDIOVASCULAR Cardiovascular: DENIES: Chest pain - RESPIRATORY Respiratory: DENIES: Trouble Breathing, Coughing - GASTROINTESTINAL Gastrointestinal: DENIES: Abdominal Pain, Black / Bloody Stools - URINARY Urinary: DENIES: Dysuria, Urgency, Frequency - MUSCULOSKELETAL Musculoskeletal: DENIES: Extremity pain Past Medical History - General Information source: Patient - Social History Smoking Status: Never Smoker Frequency of alcohol use: None Drug Abuse: None Family History: Reviewed & Not Pertinent, Hypertension Patient has suicidal ideation: No Patient has homicidal ideation: No Renal/ Medical History: Reports: Hx Kidney Stones. Denies: Hx Peritoneal Dialysis Psychiatric Medical History: Reports: Hx Bipolar Disorder, Hx Borderline Personality Disorder, Hx Depression Past Surgical History: Reports: Hx Cholecystectomy, Hx Genitourinary Surgery - Suprapubic catheter - Immunizations Immunizations up to date: Yes Vertical Provider Document - CONSTITUTIONAL Notes: PHYSICAL EXAMINATION: GENERAL: Well-appearing, well-nourished and in no acute distress. HEAD: Atraumatic, normocephalic. EYES: Pupils equal round extraocular movements intact, conjunctiva are normal. ENT: Nares patent NECK: Normal range of motion LUNGS: No respiratory distress Musculoskeletal: Normal range of motion NEUROLOGICAL: Pressured speech, normal gait. PSYCH: Normal mood, normal affect for patient. SKIN: Warm, Dry, normal turgor, no rashes or lesions noted. - INFECTION CONTROL TRAVEL OUTSIDE OF THE [place] IN LAST 30 DAYS: No Course - Re-evaluation Re-evalutation: Medication was refilled per patient request. I did provide patient with a prescription for Ditropan patches. I also gave him a prescription for the 5 mg tablets. Patient reports that he goes back and forth in between using both of them. He does understand that the patches are to be put on and stay in place for 72 hours. He does verbalize understanding not to take the Ditropan tablets at the same time. - Vital Signs Vital signs: Temp Pulse Resp BP Pulse Ox 98.4 F 93 16 155/91 H 100 09/30/18 02:31 09/30/18 02:31 09/30/18 02:31 09/30/18 02:31 09/30/18 02:31 Discharge - Discharge Clinical Impression: Medication refill Condition: Stable Disposition: HOME, SELF-CARE Additional Instructions: Your medication was refilled today per your request. You may use the Ditropan patches, use 1 every 72 hours. If you decide not to use the patches take your usual dose of Ditropan 5 mg tablet 1 tablet twice daily. Please keep the follow -up appointment you have with your urologist in [place]. Prescriptions: Oxybutynin [Oxytrol] 1 each TD Q72H #14 patch.tdsw Oxybutynin Chloride [Ditropan 5 Mg Tablet] 5 mg PO BID #60 tablet
== END 2018-09-30 02:50 | disposition home or self-care (01) ==
LOC: ER 02:15
DX: Z76.0 Encounter for issue of repeat prescription (principal); Z79.899 Other long term (current) drug therapy
CPT/HCPCS: 99281; A9270

== ENCOUNTER 2018-10-01 19:20 | Emergency (ER) | payer MEDICARE ==
[2018-10-01 19:29] VITALS: BP 128/89
[2018-10-01 22:29] LABS: APPEARANCE,URINE CLOUDY; BILIRUBIN,URINE NEGATIVE (NEGATIVE); CALCIUM OXALATE CRYSTALS,URINE MANY /HPF; COLOR,URINE YELLOW; GLUCOSE, URINE 150 mg/dL (NEGATIVE); KETONES,URINE TRACE mg/dL (NEGATIVE); LEUKOCYTE ESTERASE,URINE LARGE (NEGATIVE); NITRITE,URINE POSITIVE (NEGATIVE); PROTEIN,URINE 100 mg/dL (NEGATIVE); URINE SPECIFIC GRAVITY 1.018
[2018-10-01] MEDS ORDERED: HYDROCODONE/ACETAMINOPHEN 5-325 MG (6 TAB/ER DISP) PO PRN (22:41)
[2018-10-01] MEDS ORDERED: CEPHALEXIN 500 MG CAPSULE PO ONE (22:41)
--- NOTE | 2018-10-01 22:50 | ER Document Report ---
ED General - General Chief Complaint: Flank Pain Stated Complaint: FLANK PAIN Time Seen by Provider: 10/01/18 22:11 Mode of Arrival: Ambulatory Information source: Patient TRAVEL OUTSIDE OF THE [place] 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 The patient had a CT scan of the abdomen last month and the month prior which showed no significant abnormality and no evidence for kidney stone. The patient last had a urine culture performed last month. Patient denies any fever or nausea or vomiting. No chest pain or shortness of breath or difficulty breathing. - Related Data Allergies/Adverse Reactions: No Known Allergies Allergy (Verified 09/21/18 19:06) Past Medical History - General Information source: Patient - Social History Smoking Status: Never Smoker Frequency of alcohol use: Occasional Drug Abuse: None Lives with: Friend Family History: Reviewed & Not Pertinent, Hypertension Patient has suicidal ideation: No Patient has homicidal ideation: No Renal/ Medical History: Reports: Hx Kidney Stones. Denies: Hx Peritoneal Dialysis Psychiatric Medical History: Reports: Hx Bipolar Disorder, Hx Borderline Personality Disorder, Hx Depression Past Surgical History: Reports: Hx Cholecystectomy, Hx Genitourinary Surgery - Suprapubic catheter - Immunizations Immunizations up to date: Yes Review of Systems - Review of Systems -: Yes All other systems reviewed and negative Physical Exam - Vital signs Vitals: Temp Pulse Resp BP Pulse Ox 99.3 F 112 H 18 128/89 H 97 10/01/18 19:20 10/01/18 19:20 10/01/18 19:20 10/01/18 19:20 10/01/18 19:20 - Notes Notes: PHYSICAL EXAMINATION: GENERAL: Well-appearing, well-nourished and in no acute distress. HEAD: Atraumatic, normocephalic. EYES: Pupils equal round and reactive to light, extraocular movements intact, sclera anicteric, conjunctiva are normal. ENT: Nares patent, oropharynx clear without exudates. Moist mucous membranes. NECK: Normal range of motion, supple without lymphadenopathy LUNGS: Breath sounds clear to auscultation bilaterally and equal. No wheezes rales or rhonchi. HEART: Regular rate and rhythm without murmurs ABDOMEN: Soft, nontender, nondistended abdomen. No guarding, no rebound. No masses appreciated. Suprapubic catheter site shows minimal purulence surrounding it no cellulitis. No reproducible abdominal pain. Musculoskeletal: Normal range of motion, no pitting or edema. No cyanosis. Mild right CVA tenderness. NEUROLOGICAL: Cranial nerves grossly intact. Normal speech, normal gait. Normal sensory, motor exams PSYCH: Normal mood, normal affect. SKIN: Warm, Dry, normal turgor, no rashes or lesions noted. Course - Re-evaluation Re-evalutation: 10/01/18 23:35 Patient requested Keflex, stating that had worked previously. He was given Keflex by mouth and [place] for pain. He was told to follow-up with his regular practitioner for any long-term pain medication prescriptions. No significant evidence for dehydration or sepsis. No clinical suggestion for appendicitis or other acute intra-abdominal process, and patient states this is his usual discomfort with a UTI. - Vital Signs Vital signs: Temp Pulse Resp BP Pulse Ox 99.3 F 112 H 18 128/89 H 97 10/01/18 19:20 10/01/18 19:20 10/01/18 19:20 10/01/18 19:20 10/01/18 19:20 - Laboratory Laboratory results interpreted by me: 10/01/18 22:07 Urine Protein 100 H Urine Glucose (UA) 150 H Urine Ketones TRACE H Urine Nitrite POSITIVE H Urine Urobilinogen 2.0 H Ur Leukocyte Esterase LARGE H Discharge - Discharge Clinical Impression: Urinary tract infection Qualifiers: Urinary tract infection type: catheter-associated UTI Indwelling urinary catheter type: cystostomy catheter Encounter type: initial encounter Qualified Code(s): T83.510A - Infection and inflammatory reaction due to cystostomy catheter, initial encounter; N39.0 - Urinary tract infection, site not specified ; N39.0 - Urinary tract infection, site not specified Condition: Stable Disposition: HOME, SELF-CARE Instructions: Urinary Tract Infection ([facility]) Additional Instructions: Drink plenty of fluids. Return to the emergency department in case of fever or vomiting. Prescriptions: Cephalexin Monohydrate [Keflex 500 mg Capsule] 500 mg PO Q6H 10 Days capsule Referrals: [facility] [[facility]] - Follow up as needed
== END 2018-10-01 23:21 | disposition home or self-care (01) ==
LOC: ER 19:20
DX: T83.510A Infection and inflammatory reaction due to cystostomy catheter, initial encounter (principal); N39.0 Urinary tract infection, site not specified; Y73.8 Miscellaneous gastroenterology and urology devices associated with adverse incidents, not elsewhere classified; Y83.3 Surgical operation with formation of external stoma as the cause of abnormal reaction of the patient, or of later complication, without mention of misadventure at the time of the procedure; Z87.442 Personal history of urinary calculi
CPT/HCPCS: 99284; 87086; 87088; 81001; 87186; A9270 ×2

== ENCOUNTER 2018-10-05 18:02 | Emergency (ER) | payer MEDICARE ==
[2018-10-05 18:19] VITALS: BP 152/71
[2018-10-05] MEDS ORDERED: KETOROLAC TROMETHAMINE 60 MG/2 ML SDV IM ONE (18:31)
[2018-10-05] MEDS ORDERED: ONDANSETRON ODT 4 MG TAB (6 TAB/ER DISP) PO PRN (18:31)
--- NOTE | 2018-10-05 18:32 | ER Document Report ---
HPI - HPI Time Seen by Provider: 10/05/18 18:31 Pain Level: Denies Notes: Patient is a 47-year-old male who is well-known to the emergency department who presents to the ED complaining of continued right cheek pain just below his eye since his fracture 2 weeks ago. Patient states that he has since been seen by the specialist who does not want to perform surgery at this time. He is on his Keflex which does seem to be helping with some things, but not everything. Patient states that he did have 2 episodes of nausea and vomiting with diarrhea today. He is otherwise able to have some p.o. intake. Patient states that he is primarily here for nausea medication. Otherwise he feels well at this time. Denies drug allergies. Denies any headache, fever, neck pain, changes in vision/speech/mentation/hearing, URI, sore throat, chest pain, palpitations, syncope, cough, shortness of breath, wheeze, dyspnea, abdominal pain, nausea/ vomiting/diarrhea, urinary retention, dysuria, hematuria, or rash. - ROS Systems Reviewed and Negative: Yes All other systems reviewed and negative Past Medical History - Social History Smoking Status: Current Every Day Smoker Family History: Reviewed & Not Pertinent, Hypertension Patient has suicidal ideation: No Patient has homicidal ideation: No Renal/ Medical History: Reports: Hx Kidney Stones. Denies: Hx Peritoneal Dialysis Psychiatric Medical History: Reports: Hx Bipolar Disorder, Hx Borderline Personality Disorder, Hx Depression Past Surgical History: Reports: Hx Cholecystectomy, Hx Genitourinary Surgery - Suprapubic catheter - Immunizations Immunizations up to date: Yes Vertical Provider Document - CONSTITUTIONAL Agree With Documented VS: Yes Notes: PHYSICAL EXAMINATION: GENERAL: Well-appearing, well-nourished and in no acute distress. A&Ox4. Answers questions appropriately. HEAD: Atraumatic, normocephalic. EYES: Pupils equal round and reactive to light, extraocular movements intact, sclera anicteric, conjunctiva are normal. + mild subconjunctival hemorrhage noted. No surrounding ecchymosis or erythema otherwise. Vis bajwa intact. No nystagmus. ENT: EAC clear b/l. TM's intact b/l without erythema, fluid, or perforation. Nares patent and without discharge. oropharynx clear without exudates. No tonsilar hypertrophy or erythema. Moist mucous membranes. No sinus tenderness. Face: + tenderness rt zygomatic, in area of recent fracture. No swelling or erythema noted. No bogginess. NECK: Normal range of motion, supple without lymphadenopathy LUNGS: Breath sounds clear to auscultation bilaterally and equal. No wheezes rales or rhonchi. HEART: Regular rate and rhythm without murmurs, rubs, gallops. ABDOMEN: Soft, nontender, nondistended abdomen. No guarding, no rebound. No masses appreciated. Normal bowel sounds present. No CVA tenderness bilaterally. Musculoskeletal: FROM to passive/active. Strength 5+/5. Extremities: No cyanosis, clubbing, or edema b/l. NEUROLOGICAL: Cranial nerves grossly intact. Normal speech, normal gait. Normal sensory, motor exams PSYCH: Normal mood, normal affect. SKIN: Warm, Dry, normal turgor, no rashes or lesions noted. - INFECTION CONTROL TRAVEL OUTSIDE OF THE [place] IN LAST 30 DAYS: No Course - Re-evaluation Re-evalutation: 10/05/18 18:37 Patient is an afebrile, well-hydrated a 47-year-old male who presents to the ED for continued pain near his fracture site of his right zygomatic and nausea, vomiting, diarrhea (all x2 episodes) which I suspect to be a possible viral infection. Vitals are otherwise acceptable. PE is otherwise unremarkable. Patient's abdomen is soft nontender. He is nontoxic-appearing and is tolerating p.o. without difficulty. No labs or imaging warranted at this time. I will send him home with a prescription for Zofran. Toradol given IM today. Low suspicion for any acute abdomen, sepsis, meningitis, severe dehydration, respiratory compromise, orbital compartment syndrome, penetrating globe injury, acute glaucoma, or other systemic emergent condition at this time. Patient is aware that condition can change from initial presentation and he needs to monitor symptoms closely and seek medical attention with any acute changes. Conservative measures for symptoms. Recheck with your PCM/specialist in 3-5 days. Consider consult with ophthalmology if needed. Return to the ED with any worsening/concerning symptoms otherwise as reviewed. Patient is in agreement. - Vital Signs Vital signs: Temp Pulse Resp BP Pulse Ox 97.7 F 94 18 152/71 H 94 10/05/18 18:16 10/05/18 18:16 10/05/18 18:16 10/05/18 18:16 11/24/18 18:16 Discharge - Discharge Clinical Impression: Right-sided face pain Condition: Stable Disposition: HOME, SELF-CARE Instructions: Antinausea Medication ([facility]) Additional Instructions: Rest, Ice, Compression Tylenol/ibuprofen as needed Light stretches daily Strength exercises as able Moist heat and massage may help F/u with your PCP/specialist in 3-5 days for a recheck Consider consult(s) with ophthalmology for ongoing/worsening symptoms Return to the ED with any worsening symptoms and/or development of fever, headache, changes in behavior/mentation/vision/speech, chest pain, palpitations , syncope, shortness of breath, trouble breathing, abdominal pain, n/v/d, blood in stool/urine, loss of control of bowel/bladder, urinary retention, muscle weakness/paralysis, saddle anesthesia, numbness/tingling, or other worsening symptoms that are concerning to you. Prescriptions: Naproxen 500 mg PO BID #10 tablet Ondansetron [Zofran Odt 4 mg Tablet] 1 - 2 tab PO Q4H PRN #15 tab.rapdis PRN Reason: For Nausea/Vomiting Forms: Elevated Blood Pressure, Smoking Cessation Education Referrals: [facility] [Primary Care [facility]] - Follow up in 3-5 days
== END 2018-10-05 18:57 | disposition home or self-care (01) ==
LOC: ER 18:02
DX: R11.2 Nausea with vomiting, unspecified (principal); R51 Headache; R19.7 Diarrhea, unspecified; F17.200 Nicotine dependence, unspecified, uncomplicated; H11.30 Conjunctival hemorrhage, unspecified eye
CPT/HCPCS: 99283; 96372; J1885; A9270

== ENCOUNTER 2018-10-07 21:47 | Emergency (ER) | payer MEDICARE ==
--- NOTE | 2018-10-07 22:36 | RADIOLOGY REPORT (SQ) ---
EXAM DESCRIPTION: XR ANKLE 3 OR MORE VIEWS COMPLETED DATE/TME: 10/07/2018 00:00 CLINICAL HISTORY: 48 years, Male, fall COMPARISON: None. NUMBER OF VIEWS: 3 TECHNIQUE: 3 views of the left ankle LIMITATIONS: None. FINDINGS: Osteopenia. Extensive postsurgical changes with fixation rods and screws. Well-corticated ossific density along the plantar aspect of the calcaneus could reflect prominent spur versus sequelae of old trauma. Bony fusion of the ankle joint. No radiographic evidence for acute fracture or dislocation. IMPRESSION: No radiographic evidence for acute osseous abnormality. Extensive postsurgical changes with bony fusion of the ankle mortise. 2010 [employer]- All Rights Reserved
--- NOTE | 2018-10-07 22:37 | RADIOLOGY REPORT (SQ) ---
EXAM DESCRIPTION: XR KNEE 4 OR MORE VIEWS COMPLETED DATE/TME: 10/07/2018 00:00 CLINICAL HISTORY: 48 years, Male, fall COMPARISON: None. NUMBER OF VIEWS: 4 TECHNIQUE: 4 view left knee LIMITATIONS: None. FINDINGS: Osteopenia. Negative for acute fracture or dislocation. Partial visualization of an area of cortical thickening along the posterior aspect of the proximal tibia. This could reflect sequelae of old trauma versus osteochondroma. There is also deformity of the fibular head which may relate to old trauma. No definitive joint effusion. Minor medial compartment narrowing. IMPRESSION: Osteopenia without radiographic evidence for acute osseous abnormality. Possible old injury/trauma associated with the proximal tibia. There is also suggestion of an old proximal fibular head fracture. 2011 [employer]- All Rights Reserved
--- NOTE | 2018-10-07 22:40 | RADIOLOGY REPORT (SQ) ---
EXAM DESCRIPTION: XR SHOULDER 2 OR MORE VIEWS COMPLETED DATE/TME: 10/07/2018 00:00 CLINICAL HISTORY: 48 years, Male, fall COMPARISON: None. NUMBER OF VIEWS: 3 TECHNIQUE: 3 view left shoulder LIMITATIONS: None. FINDINGS: Osteopenia. Negative for acute fracture or dislocation. Postsurgical changes of the cervical spine. Degenerative changes of the acromioclavicular and glenohumeral joints. Area of cortical thickening involving the proximal humeral diaphysis which could reflect sequelae of old trauma. Soft tissues are unremarkable. IMPRESSION: Osteopenia with minor degenerative changes. No acute osseous abnormality. 2010 [employer]- All Rights Reserved
[2018-10-07] MEDS ORDERED: KETOROLAC TROMETHAMINE 60 MG/2 ML SDV IM ONE (22:53)
[2018-10-07] MEDS ORDERED: ACETAMINOPHEN 325 MG TABLET PO ONE (22:53)
--- NOTE | 2018-10-07 22:56 | ER Document Report ---
ED General - General Chief Complaint: Fall Stated Complaint: FALL Time Seen by Provider: 10/07/18 22:47 Mode of Arrival: Medic Information source: Patient, Emergency Med Personnel, [facility] Records Notes: 48-year-old male with bipolar disorder, borderline personality disorder, depression, chronic pain presents via EMS from home after a trip and fall. Patient states that he was feeding his cat when his dog came over causing him to fall onto his left shoulder. Patient denies any preceding shortness of breath, chest pain. Patient has been taking Naprosyn without relief. Patient also reports that he "fell out" of the wheelchair and struck his head. This was witnessed by nursing staff. No loss of consciousness. This is the patient' s 10th visit to the emergency department in the month of September 2018. Patient complaining of facial pain from previous injury, left shoulder pain, left knee and ankle pain. Security on standby in the patient's room due to his known volatile behavior. TRAVEL OUTSIDE OF THE [place] IN LAST 30 DAYS: No - HPI Onset: Just prior to arrival Quality of pain: Throbbing Severity: Moderate Associated symptoms: denies: Chest pain, Nausea, Vomiting, Shortness of breath Exacerbated by: Movement Relieved by: Denies Similar symptoms previously: Yes Recently seen / treated by doctor: Yes - Related Data Allergies/Adverse Reactions: No Known Allergies Allergy (Verified 10/05/18 18:30) Past Medical History - General Information source: Patient, [facility] Records - Social History Smoking Status: Current Every Day Smoker Cigarette use (# per day): Yes - 10 Smoking Education Provided: Yes - Smoking cessation counseling was provided for 4 minutes at the bedside Frequency of alcohol use: Heavy Drug Abuse: Prescription drugs Lives with: Alone Family History: Reviewed & Not Pertinent, Hypertension Patient has suicidal ideation: No Patient has homicidal ideation: No - Medical History Medical History: Negative Renal/ Medical History: Reports: Hx Kidney Stones. Denies: Hx Peritoneal Dialysis Psychiatric Medical History: Reports: Hx Bipolar Disorder, Hx Borderline Personality Disorder, Hx Depression Past Surgical History: Reports: Hx Cholecystectomy, Hx Genitourinary Surgery - Suprapubic catheter - Immunizations Immunizations up to date: Yes Review of Systems - Review of Systems Constitutional: denies: Recent illness EENT: denies: Blurred vision Cardiovascular: denies: Chest pain, Lightheaded Respiratory: denies: Short of breath Gastrointestinal: denies: Abdominal pain Genitourinary: denies: Dysuria Male Genitourinary: No symptoms reported Musculoskeletal: Back pain, Joint pain, Muscle pain, Muscle stiffness. denies: Deformity Skin: denies: Rash Hematologic/Lymphatic: No symptoms reported Neurological/Psychological: denies: Seizure, Lost consciousness, Headaches -: Yes All other systems reviewed and negative Physical Exam - Vital signs Vitals: Temp Pulse Resp BP Pulse Ox 97.7 F 85 18 106/68 98 10/07/18 22:06 10/07/18 22:06 10/07/18 22:06 10/07/18 22:06 10/07/18 22:06 - Notes Notes: PHYSICAL EXAMINATION: GENERAL: Well-appearing, well-nourished and in no acute distress. HEAD: Atraumatic, normocephalic. EYES: Pupils equal round and reactive to light, extraocular movements intact, sclera anicteric, conjunctiva are normal. ENT: Nares patent, oropharynx clear without exudates. Moist mucous membranes. NECK: Normal range of motion, supple without lymphadenopathy LUNGS: Breath sounds clear to auscultation bilaterally and equal. No wheezes rales or rhonchi. HEART: Regular rate and rhythm without murmurs ABDOMEN: Soft, nontender, nondistended abdomen. No guarding, no rebound. No masses appreciated. Musculoskeletal: Normal range of motion, no pitting or edema. No cyanosis. NEUROLOGICAL: Cranial nerves grossly intact. Normal speech, normal gait. Normal sensory, motor exams PSYCH: Normal mood, normal affect. SKIN: Warm, Dry, normal turgor, no rashes or lesions noted. Course - Re-evaluation Re-evalutation: Ankle X-Ray 10/07/18 00:00 IMPRESSION: No radiographic evidence for acute osseous abnormality. Extensive postsurgical changes with bony fusion of the ankle mortise. 2010 [employer]- All Rights Reserved Knee X-Ray 10/07/18 00:00 IMPRESSION: Osteopenia without radiographic evidence for acute osseous abnormality. Possible old injury/trauma associated with the proximal tibia. There is also suggestion of an old proximal fibular head fracture. 2010 [employer]- All Rights Reserved Shoulder X-Ray 10/07/18 00:00 IMPRESSION: Osteopenia with minor degenerative changes. No acute osseous abnormality. 2010 [employer]- All Rights Reserved Head CT 10/07/18 22:52 IMPRESSION: Partial visualization of a previously described tripod fracture of the right zygomatic arch/maxilla. Negative for acute intracranial abnormality. TECHNICAL DOCUMENTATION: Quality ID # 436: Final reports with documentation of one or more dose reduction techniques (e.g., Automated exposure control, adjustment of the mA and/or kV according to patient size, use of iterative reconstruction technique) 2010 [facility] [employer]- All Rights Reserved Temp Pulse Resp BP Pulse Ox 97.7 F 85 18 106/68 98 10/07/18 22:06 10/07/18 22:06 10/07/18 22:06 10/07/18 22:06 10/07/18 22:06 10/07/18 22:59 48-year-old male presents via EMS from home after a trip and fall. He is currently complaining of left shoulder, knee and ankle pain. Denies any preceding shortness of breath, chest pain. Vital signs reviewed and within normal limits upon arrival. Patient does not appear toxic or dehydrated. He is in no acute distress. Patient is well-known to the department. He is well- known for volatile behavior and has been seen here over 10 times this month alone. Patient is known for drug-seeking behavior. States this is birthday today and that he was stood up which is "not new for him."Upon my arrival into the room security is in the room because of the patient's known volatile behavior. Patient complains of pain with range of motion of the left knee, left shoulder, left ankle. No obvious deformity. Presentation of a well appearing patient in no acute distress, vitals within normal limits after a mechanical fall. Patient denies a syncopal episode as the cause for today's fall. No focal neurologic deficits on exam, no evidence of basilar skull fracture on exam without evidence of hemotympanum, raccoon eyes, or periauricular hematoma. No papilledema. Patient is not on anticoagulation. GCS is 15. No loss of consciousness. No episodes of vomiting. CT had obtained and negative for any acute process. Does show old tripod fracture of the zygoma. Patient has no focal deformities or limited range of motion in any joint space. Chest and abdominal exam are benign without any focal tenderness, shortness of breath, or bruising over the chest or abdominal wall. Patient has no flank tenderness. There is no obvious findings on trauma exam today and therefore no further imaging or evaluation will be obtained at this time. At this time will discharge with return precautions and follow-up recommendations. Verbal discharge instructions given a the bedside and opportunity for questions given. Medication warnings reviewed. Patient is in agreement with this plan and has verbalized understanding of return precautions and the need for primary care follow-up in the next 24-72 hours. Patient was reevaluated after receiving Toradol and Tylenol. He is asleep and resting comfortably. 10/07/18 22:59 10/07/18 23:55 - Vital Signs Vital signs: Temp Pulse Resp BP Pulse Ox 97.7 F 85 18 106/68 98 10/07/18 22:06 10/07/18 22:06 10/07/18 22:06 10/07/18 22:06 10/07/18 22:06 - Diagnostic Test Radiology reviewed: Image reviewed, Reports reviewed Discharge - Discharge Clinical Impression: Right-sided face pain Fall Qualifiers: Encounter type: initial encounter Qualified Code(s): W19.XXXA - Unspecified fall, initial encounter Closed head injury Qualifiers: Encounter type: initial encounter Qualified Code(s): S09.90XA - Unspecified injury of head, initial encounter Contusion of left shoulder Qualifiers: Encounter type: initial encounter Qualified Code(s): S40.012A - Contusion of left shoulder, initial encounter Strain of left knee Qualifiers: Encounter type: initial encounter Qualified Code(s): S86.912A - Strain of unspecified muscle(s) and tendon(s) at lower leg level, left leg, initial encounter Left ankle sprain Qualifiers: Encounter type: initial encounter Involved ligament of ankle: unspecified ligament Qualified Code(s): S93.402A - Sprain of unspecified ligament of left ankle, initial encounter Chronic pain Qualifiers: Chronic pain type: other chronic pain Qualified Code(s): G89.29 - Other chronic pain Condition: Good Disposition: HOME, SELF-CARE Instructions: Contusion ([facility]), Ice Packs ([facility]), Sprained Ankle ([facility]) Additional Instructions: You have been seen in the Emergency Department (ED) today following a fall. Your workup today did not reveal any injuries that require you to stay in the hospital. You can expect, though, to be stiff and sore for the next several days. You can take Tylenol 1000 mg every 6 hours as needed for pain. You can apply a hot pack or electric heating pad to the sore areas. You can also use topical "Aspercreme with lidocaine" to sore areas as needed. Please follow up with your primary care doctor as soon as possible regarding today's ED visit and your recent fall. Call your doctor or return to the ED if you develop a sudden or severe headache , confusion, slurred speech, facial droop, weakness or numbness in any arm or leg, extreme fatigue, vomiting more than two times, severe abdominal pain, or other symptoms that concern you. You have likely sustained a contusion (bruise) to your head. If you had a CT scan done, it did not show any evidence of serious injury or bleeding. Symptoms to expect from a concussion include nausea, mild to moderate headache, difficulty concentrating or sleeping, and mild lightheadedness. These symptoms should improve over the next few days to weeks. Return to the emergency department or follow-up with your primary care doctor if your symptoms are not improving over this time. Signs of a more serious head injury include vomiting , severe headache, excessive sleepiness or confusion, and weakness or numbness in your face, arms or legs. Return immediately to the Emergency Department if you experience any of these more concerning symptoms. Rest, avoid strenuous physical or mental activity, and avoid activities that could potentially result in another head injury until all your symptoms from this head injury are completely resolved for at least 2-3 weeks. If you participate in sports, get cleared by your doctor or dog trainer before returning to play. You may take ibuprofen or acetaminophen over the counter according to label instructions for mild headache or scalp soreness. Prescriptions: Tramadol HCl [Ultram 50 mg Tablet] 50 mg PO Q6HP PRN #8 tablet PRN Reason: Referrals: [facility] [Primary Care [facility]] - Follow up as needed
--- NOTE | 2018-10-07 23:24 | RADIOLOGY REPORT (SQ) ---
EXAM DESCRIPTION: CT HEAD WITHOUT IV CONTRAST COMPLETED DATE/TME: 10/07/2018 22:52 CLINICAL HISTORY: 48 years, Male, fall COMPARISON: 09/19/2018 CT brain TECHNIQUE: 74 Images stored on PACS. All CT scanners at this facility use dose modulation, iterative reconstruction, and/or weight based dosing when appropriate to reduce radiation dose to as low as reasonably achievable (ALARA). [facility]: Dose Right [facility]: CareDose [facility]: Dose Right [facility]: Teradose 4D [facility]: [employer] LIMITATIONS: None. FINDINGS: Redemonstrated are fracture deformities of the right zygomatic arch and maxilla. This was better seen on dedicated CT facial bones from prior exam. There is associated mucosal thickening of the right maxillary sinus. The globes are intact. No displaced or depressed skull fracture. No intra or extra-axial hemorrhage. CT is limited for evaluation of acute infarct. No CT evidence for large or territorial acute infarct. No mass or midline shift. IMPRESSION: Partial visualization of a previously described tripod fracture of the right zygomatic arch/maxilla. Negative for acute intracranial abnormality. TECHNICAL DOCUMENTATION: Quality ID # 436: Final reports with documentation of one or more dose reduction techniques (e.g., Automated exposure control, adjustment of the mA and/or kV according to patient size, use of iterative reconstruction technique) 2010 [employer]- All Rights Reserved
[2018-10-08 00:05] VITALS: BP 109/70
== END 2018-10-08 00:02 | disposition home or self-care (01) ==
LOC: ER 21:47
DX: S02.40EA Zygomatic fracture, right side, initial encounter for closed fracture (principal); S02.40CA Maxillary fracture, right side, initial encounter for closed fracture; X58.XXXA Exposure to other specified factors, initial encounter; S93.402A Sprain of unspecified ligament of left ankle, initial encounter; S86.912A Strain of unspecified muscle(s) and tendon(s) at lower leg level, left leg, initial encounter; S40.012A Contusion of left shoulder, initial encounter; M25.512 Pain in left shoulder; M25.562 Pain in left knee; M25.572 Pain in left ankle and joints of left foot; W01.0XXA Fall on same level from slipping, tripping and stumbling without subsequent striking against object, initial encounter; Y93.K9 Activity, other involving animal care; Y92.009 Unspecified place in unspecified non-institutional (private) residence as the place of occurrence of the external cause; G89.29 Other chronic pain; F19.10 Other psychoactive substance abuse, uncomplicated; M54.9 Dorsalgia, unspecified; F17.210 Nicotine dependence, cigarettes, uncomplicated; Z71.6 Tobacco abuse counseling; M85.812 Other specified disorders of bone density and structure, left shoulder; M85.862 Other specified disorders of bone density and structure, left lower leg; Z98.1 Arthrodesis status
CPT/HCPCS: 99406; 99284; 96372; 73610; 73564; 73030; 70450; A9270; J1885

== ENCOUNTER 2018-10-17 19:14 | Emergency (ER) | payer MEDICARE ==
[2018-10-17] MEDS ORDERED: HYDROCODONE/ACETAMINOPHEN 5-325 MG TABLET PO ONE (19:26)
--- NOTE | 2018-10-17 19:28 | ER Document Report ---
ED Medical Screen (RME) - General Chief Complaint: Fall Stated Complaint: FALL Time Seen by Provider: 10/17/18 19:24 Notes: 48 years old male presents today with head injury and a fall. He says that he was walking up the steps tripped and fell hit an object on the forehead And passed out. How long he was passed out he could not recollect. Woke up by himself started having headache and neck pain therefore present to the ED. He had previous cervical spine surgery with sebastian placement. Denies any focal weakness numbness tingling sensation. TRAVEL OUTSIDE OF THE [place] IN LAST 30 DAYS: No - Related Data Allergies/Adverse Reactions: No Known Allergies Allergy (Verified 10/17/18 19:17) Past Medical History Renal/ Medical History: Reports: Hx Kidney Stones. Denies: Hx Peritoneal Dialysis Psychiatric Medical History: Reports: Hx Bipolar Disorder, Hx Borderline Personality Disorder, Hx Depression Past Surgical History: Reports: Hx Cholecystectomy, Hx Genitourinary Surgery - Suprapubic catheter - Immunizations Immunizations up to date: Yes Physical Exam - Vital signs Vitals: Temp Pulse Resp BP Pulse Ox 98.8 F 95 16 107/67 100 10/17/18 19:23 10/17/18 19:23 10/17/18 19:23 10/17/18 19:23 10/17/18 19:23 Course - Vital Signs Vital signs: Temp Pulse Resp BP Pulse Ox 98.8 F 95 16 107/67 100 10/17/18 19:23 10/17/18 19:23 10/17/18 19:23 10/17/18 19:23 10/17/18 19:23 Doctor's Discharge - Discharge Referrals: [facility] [[facility]] - Follow up as needed
--- NOTE | 2018-10-17 20:10 | RADIOLOGY REPORT (SQ) ---
EXAM DESCRIPTION: CT HEAD WITHOUT COMPLETED DATE/TIME: 10/17/2018 7:57 pm REASON FOR STUDY: Head and neck injury COMPARISON: 10/07/2018 TECHNIQUE: Axial images acquired through the brain without intravenous contrast. Images reviewed wi th bone, brain and subdural windows. Additional sagittal and coronal reconstructions were generated. Images stored on PACS. All CT scanners at this facility use dose modulation, iterative reconstruction, and/or weight based d osing when appropriate to reduce radiation dose to as low as reasonably achievable (ALARA). [facility]: Dose Right [facility]: CareDose [facility]: Dose Right [facility]: Teradose 4D [facility]: [employer] RADIATION DOSE: CT Rad equipment meets quality standard of care and radiation dose reduction techniq ues were employed. CTDIvol: 53.2 mGy. DLP: 1017 mGy-cm. mGy. LIMITATIONS: None. FINDINGS: VENTRICLES: Normal size and contour. CEREBRUM: No masses. No hemorrhage. No midline shift. No evidence for acute infarction. Normal gra y/white matter differentiation. No areas of low density in the white matter. CEREBELLUM: No masses. No hemorrhage. No alteration of density. No evidence for acute infarction. EXTRAAXIAL SPACES: No fluid collections. No masses. ORBITS AND GLOBE: No intra- or extraconal masses. Normal contour of globe without masses. CALVARIUM: Tripod fracture on the right. This is stable. PARANASAL SINUSES: No fluid or mucosal thickening. SOFT TISSUES: No mass or hematoma. OTHER: No other significant finding. IMPRESSION: Stable facial fractures on the right. No acute intracranial imaging findings. EVIDENCE OF ACUTE STROKE: NO. COMMENT: Quality ID # 436: Final reports with documentation of one or more dose reduction techniques (e.g., Automated exposure control, adjustment of the mA and/or kV according to patient size, use of iterative reconstruction technique) TECHNICAL DOCUMENTATION: JOB ID: [id number] [employer]- All Rights Reserved Reading location - IP/workstation name: [email or web address]
--- NOTE | 2018-10-17 20:12 | RADIOLOGY REPORT (SQ) ---
EXAM DESCRIPTION: CT CERVICAL SPINE WITHOUT COMPLETED DATE/TIME: 10/17/2018 7:57 pm REASON FOR STUDY: Head and neck injury COMPARISON: None. TECHNIQUE: Axial images acquired through the cervical spine without intravenous contrast. Images re viewed with lung, soft tissue and bone windows. Reconstructed coronal and sagittal MPR images review ed. Images stored on PACS. All CT scanners at this facility use dose modulation, iterative reconstruction, and/or weight based d osing when appropriate to reduce radiation dose to as low as reasonably achievable (ALARA). [facility]: Dose Right [facility]: CareDose [facility]: Dose Right [facility]: Teradose 4D [facility]: [employer] RADIATION DOSE: CT Rad equipment meets quality standard of care and radiation dose reduction techniq ues were employed. CTDIvol: 20.7 mGy. DLP: 1014 mGy-cm. mGy. LIMITATIONS: None. FINDINGS: ALIGNMENT: Anatomic. MINERALIZATION: Normal. VERTEBRAL BODIES: No fractures or dislocation. DISCS: Disc implant at C5-6. FACETS, LATERAL MASSES, POSTERIOR ELEMENTS: No fractures. No dislocation. No acute findings. HARDWARE: Anterior plate at C5-6 with screws into the vertebral bodies. A disc implant is present. VISUALIZED RIBS: No fractures. LUNG APICES AND SOFT TISSUES: No significant or acute findings. OTHER: No other significant finding. IMPRESSION: ACDF C5-6. No acute findings. TECHNICAL DOCUMENTATION: JOB ID: [id number] Quality ID # [id number]: Final reports with documentation of one or more dose reduction techniques (e.g., Au tomated exposure control, adjustment of the mA and/or kV according to patient size, use of iterative reconstruction technique) 2010 [employer]- All Rights Reserved Reading location - IP/workstation name: [email or web address]
--- NOTE | 2018-10-17 20:34 | ER Document Report ---
ED General - General Chief Complaint: Fall Stated Complaint: FALL Time Seen by Provider: 10/17/18 19:24 Notes: 48-year-old male well-known to the emergency department who presents for a fall with a positive LOC. He states he was climbing stairs and fell down 5 stairs while at home. He denies alcohol use. He endorses lightheadedness, dizziness, nausea, vomiting x2. He states his left arm weakness. He states this happened at about 1930 this evening. He denies vision changes, dyspnea, chest pain. He does endorse musculoskeletal pain in his left side. TRAVEL OUTSIDE OF THE [place] IN LAST 30 DAYS: No - Related Data Allergies/Adverse Reactions: No Known Allergies Allergy (Verified 10/17/18 19:17) Past Medical History - Social History Smoking Status: Never Smoker Chew tobacco use (# tins/day): No Frequency of alcohol use: None Drug Abuse: None Family History: Reviewed & Not Pertinent, Hypertension Patient has suicidal ideation: No Patient has homicidal ideation: No Renal/ Medical History: Reports: Hx Kidney Stones. Denies: Hx Peritoneal Dialysis Psychiatric Medical History: Reports: Hx Bipolar Disorder, Hx Borderline Personality Disorder, Hx Depression Past Surgical History: Reports: Hx Cholecystectomy, Hx Genitourinary Surgery - Suprapubic catheter - Immunizations Immunizations up to date: Yes Physical Exam - Vital signs Vitals: Temp Pulse Resp BP Pulse Ox 98.8 F 95 16 107/67 100 10/17/18 19:23 10/17/18 19:23 10/17/18 19:23 10/17/18 19:23 10/17/18 19:23 - Notes Notes: Reviewed vital signs and nursing note as charted by RN. CONSTITUTIONAL: Well-appearing, well-nourished, acting appropriately for age HEAD: Normocephalic, atraumatic, no swelling EYES: PERRL, Conjunctivae clear, no drainage, EOMI, no scleral icterus ENT: External ears without lesions, airway patent, mucous membranes pink and moist NECK: Supple, no masses CARD: Regular rate and rhythm, no murmurs, no rubs, no gallops, capillary refill < 2 seconds, symmetric pulses RESP: The lungs are clear to auscultation bilaterally, no wheezing, no rales, no rhonchi. Respiratory rate and effort are normal, normal chest excursion. No respiratory distress, no retractions, no stridor, no nasal flaring, no accessory muscle use. ABD/GI: Normal bowel sounds, non-distended, soft, non-tender, no rebound, no guarding, no palpable organomegaly EXT: Normal ROM in all joints, non-tender to palpation, no effusions, no edema SKIN: Normal color for age and race, warm, dry, good turgor, no acute lesions noted NEURO: PERRL, no facial asymmetry, moves all extremities equally with pain, motor and sensory function intact, no pronator drift Course - Re-evaluation Re-evalutation: 10/17/18 20:35 CT head showed a stable tripod fracture, CT neck showed no evidence of C-spine fracture. Unable to clear his C-spine based on clinical examination on Nexus criteria but will remove c-collar with negative CT neck. At this point patient has existing stable fractures that do not require treatment. Patient is stable to discharge. 10/17/18 20:37 10/17/18 21:02 Discussed with patient that he is safe and stable for discharge. I told him that I was not comfortable prescribing him any opiates or giving him any more strictly due to concern for his safety. I did offer him Motrin for anti- inflammatory effect which I explained would be a bigger help for his symptoms. Patient agreed. - Vital Signs Vital signs: Temp Pulse Resp BP Pulse Ox 98.8 F 95 16 107/67 100 10/17/18 19:23 10/17/18 19:23 10/17/18 19:23 10/17/18 19:23 10/17/18 19:23 Discharge - Discharge Clinical Impression: Fall (on) (from) other stairs and steps, initial encounter Condition: Stable Disposition: HOME, SELF-CARE Additional Instructions: You have been seen in the Emergency Department (ED) today following a fall. Your workup today did not reveal any injuries that require you to stay in the hospital. You can expect, though, to be stiff and sore for the next several days. You can take Tylenol 1000 mg every 6 hours as needed for pain. You can apply a hot pack or electric heating pad to the sore areas. You can also use topical "Aspercreme with lidocaine" to sore areas as needed. Please follow up with your primary care doctor as soon as possible regarding today's ED visit and your recent fall. Call your doctor or return to the ED if you develop a sudden or severe headache , confusion, slurred speech, facial droop, weakness or numbness in any arm or leg, extreme fatigue, vomiting more than two times, severe abdominal pain, or other symptoms that concern you. Referrals: [facility] [NO [facility]AL MD] - Follow up as needed
[2018-10-17] MEDS ORDERED: IBUPROFEN 600 MG TABLET PO ONE (20:51)
[2018-10-17 21:05] VITALS: BP 131/64
== END 2018-10-17 21:07 | disposition home or self-care (01) ==
LOC: ER 19:14
DX: S00.81XA Abrasion of other part of head, initial encounter (principal); R11.2 Nausea with vomiting, unspecified; R42 Dizziness and giddiness; W10.9XXA Fall (on) (from) unspecified stairs and steps, initial encounter; Z90.49 Acquired absence of other specified parts of digestive tract; Z87.442 Personal history of urinary calculi
CPT/HCPCS: 99284; 70450; 72125; A9270 ×2

== ENCOUNTER 2018-10-19 10:55 | Emergency (ER) | payer MEDICARE ==
[2018-10-19 11:03] VITALS: BP 142/75
--- NOTE | 2018-10-19 11:24 | ER Document Report ---
ED GI/ - General Chief Complaint: Problem with Urinary Catheter Stated Complaint: CATHETER ISSUES Time Seen by Provider: 10/19/18 11:19 Notes: Patient's leg bag for his Vo catheter was accidentally torn by his dog about 3 AM this morning. The catheter continues to work well and the patient only needs a replacement leg bag. He has the Vo catheter because he had transverse myelitis after receiving a flu shot 6 years ago. Patient has no other complaints. No difficulty urinating. No fevers. TRAVEL OUTSIDE OF THE [place] IN LAST 30 DAYS: No - Related Data Allergies/Adverse Reactions: No Known Allergies Allergy (Verified 10/19/18 10:56) Past Medical History - Social History Smoking Status: Unknown if Ever Smoked Family History: Reviewed & Not Pertinent, Hypertension Renal/ Medical History: Reports: Hx Kidney Stones, Other - Vo cath secondary to transverse myelitis secondary to flu vx 6 years ago Psychiatric Medical History: Reports: Hx Bipolar Disorder, Hx Borderline Personality Disorder, Hx Depression Past Surgical History: Reports: Hx Cholecystectomy, Hx Genitourinary Surgery - Suprapubic catheter - Immunizations Immunizations up to date: Yes Review of Systems - Review of Systems Notes: CONSTITUTIONAL : Denies fever. CARDIOVASCULAR: Denies chest pain. RESPIRATORY: Denies cough, chest congestion, or shortness of breath. GASTROINTESTINAL: Denies abdominal pain or nausea, vomiting, or diarrhea. GENITOURINARY: Denies difficulty or painful urinating, urinary frequency, blood in urine. See HPI. Physical Exam - Vital signs Vitals: Temp Pulse Resp BP Pulse Ox 97.7 F 91 16 142/75 H 98 10/19/18 10:59 10/19/18 10:59 10/19/18 10:59 10/19/18 10:59 10/19/18 10:59 Interpretation: Normal Notes: PHYSICAL EXAMINATION: GENERAL: Well-appearing, no acute distress. HEAD: Atraumatic, normocephalic. NECK: Normal range of motion, supple. LUNGS: Breath sounds clear and equal bilaterally. HEART: Regular rate and rhythm without murmurs heard. ABDOMEN: Soft, nontender. No guarding or rebound or masses felt. Genitourinary: Vo catheter in place and functioning normally. No leg bag present. Course - Vital Signs Vital signs: Temp Pulse Resp BP Pulse Ox 97.7 F 91 16 142/75 H 98 10/19/18 10:59 10/19/18 10:59 10/19/18 10:59 10/19/18 10:59 10/19/18 10:59 Discharge - Discharge Clinical Impression: Replace Vo catheter leg bag Condition: Stable Disposition: HOME, SELF-CARE Additional Instructions: Your Vo catheter leg bag has been replaced. Recheck as needed.
== END 2018-10-19 11:27 | disposition home or self-care (01) ==
LOC: ER 10:55
DX: Z46.6 Encounter for fitting and adjustment of urinary device (principal); G37.3 Acute transverse myelitis in demyelinating disease of central nervous system
CPT/HCPCS: 99283

== ENCOUNTER 2018-10-30 19:42 | Emergency (ER) | payer MEDICARE ==
[2018-10-30] MEDS ORDERED: ONDANSETRON HCL INJ/PF 4 MG/2 ML SDV IV ONE (20:25)
[2018-10-30] MEDS ORDERED: NORMAL SALINE 1000 ML 1,000 ML IV ONE (20:25)
--- NOTE | 2018-10-30 20:26 | ER Document Report ---
ED Medical Screen (RME) - General Chief Complaint: Nausea/Vomiting/Diarrhea Stated Complaint: URINARY PAIN Time Seen by Provider: 10/30/18 20:08 TRAVEL OUTSIDE OF THE [place] IN LAST 30 DAYS: No - HPI Notes: 10/30/18 20:26 Patient is a 48-year-old male with chronic indwelling suprapubic catheter that presents to the emergency department for chief complaint of pain around his catheter site nausea and vomiting. He reports nausea for the last 3 days and vomiting for the past 2. His vomiting increased today.. ROS: GENERAL: Denies fever of chills CV: Denies chest pain PHYSICAL EXAMINATION: GENERAL: Well-appearing, well-nourished and in no acute distress. HEAD: Atraumatic, normocephalic. EYES: Pupils equal round extraocular movements intact, conjunctiva are normal. ENT: Nares patent NECK: Normal range of motion LUNGS: No respiratory distress Musculoskeletal: Normal range of motion NEUROLOGICAL: Normal speech, normal gait. PSYCH: Normal mood, normal affect. MDM: Patient seen and examined for rapid initial assessment. Vital signs reviewed. A comprehensive ED assessment and evaluation of the patient, analysis of test results and completion of the medical decision making process will be conducted by additional ED providers. - Related Data Allergies/Adverse Reactions: No Known Allergies Allergy (Verified 10/19/18 10:56) Past Medical History Renal/ Medical History: Reports: Hx Kidney Stones. Denies: Hx Peritoneal Dialysis Psychiatric Medical History: Reports: Hx Bipolar Disorder, Hx Borderline Personality Disorder, Hx Depression Past Surgical History: Reports: Hx Cholecystectomy, Hx Genitourinary Surgery - Suprapubic catheter - Immunizations Immunizations up to date: Yes Physical Exam - Vital signs Vitals: Temp Pulse Resp BP Pulse Ox 98.3 F 104 H 16 146/67 H 97 10/30/18 19:56 10/30/18 19:56 10/30/18 19:56 10/30/18 19:56 10/30/18 19:56 Course - Vital Signs Vital signs: Temp Pulse Resp BP Pulse Ox 98.3 F 104 H 16 146/67 H 97 10/30/18 19:56 18 19:56 18 19:56 10/30/18 19:56 10/30/18 19:56
[2018-10-30 21:04] LABS: ABSOLUTE BASOPHILS # (AUTO) 0.1 10^3/uL (0.0-0.2); ABSOLUTE EOSINOPHILS # (AUTO) 0.3 10^3/uL (0.0-0.6); ABSOLUTE LYMPHOCYTES (AUTO) 1.7 10^3/uL (0.5-4.7); ABSOLUTE MONOCYTES (AUTO) 1.2 10^3/uL (0.1-1.4); BASOPHILS % (AUTO) 0.9 % (0-2); EOSINOPHILS % (AUTO) 2.6 % (0-6); HEMATOCRIT 33.6 % (37.9-51.0); HEMOGLOBIN 10.9 g/dL (13.5-17.0); LYMPHOCYTES % (AUTO) 14.9 % (13-45); MEAN CORPUSCULAR HEMOGLOBIN 23.7 pg (27.0-33.4); MEAN CORPUSCULAR HGB CONC 32.5 g/dL (32.0-36.0); MEAN CORPUSCULAR VOLUME 73 fl (80-97); MONOCYTES % (AUTO) 10.9 % (3-13); PLATELET COUNT 339 10^3/uL (150-450); RED BLOOD COUNT 4.62 10^6/uL (4.35-5.55); RED CELL DISTRIBUTION WIDTH 18.2 % (11.5-14.0); SEGMENTED NEUTROPHILS % (AUTO) 70.7 % (42-78); TOTAL CELLS COUNTED % (AUTO) 100 %; WHITE BLOOD COUNT 11.3 10^3/uL (4.0-10.5)
--- NOTE | 2018-10-30 21:17 | ER Document Report ---
ED General - General Chief Complaint: Nausea/Vomiting/Diarrhea Stated Complaint: URINARY PAIN Time Seen by Provider: 10/30/18 20:08 Mode of Arrival: Ambulatory Information source: Patient Notes: 48-year-old male with a chronic indwelling suprapubic catheter presents to the emergency department with a chief complaint of nausea, vomiting, diarrhea, pain to the catheter site. Patient states that he has had these symptoms for the last 3 days. Patient is concerned that he is a urinary tract infection. Patient states his last urinary tract infection was 6 weeks ago and he was prescribed Keflex. Patient denies any sick contacts, fever, chills, abdominal pain, melena, hematochezia. TRAVEL OUTSIDE OF THE [place] IN LAST 30 DAYS: No - HPI Onset: Other - 3 days Quality of pain: Dull Severity: Mild Pain Level: Denies Associated symptoms: Diarrhea, Nausea, Vomiting Exacerbated by: Denies Relieved by: Denies Similar symptoms previously: Yes Recently seen / treated by doctor: No - Related Data Allergies/Adverse Reactions: No Known Allergies Allergy (Verified 10/19/18 10:56) Past Medical History - General Information source: Patient - Social History Smoking Status: Never Smoker Family History: Reviewed & Not Pertinent, Hypertension Patient has suicidal ideation: No Patient has homicidal ideation: No Renal/ Medical History: Reports: Hx Kidney Stones. Denies: Hx Peritoneal Dialysis Psychiatric Medical History: Reports: Hx Bipolar Disorder, Hx Borderline Personality Disorder, Hx Depression Past Surgical History: Reports: Hx Cholecystectomy, Hx Genitourinary Surgery - Suprapubic catheter - Immunizations Immunizations up to date: Yes Review of Systems - Review of Systems Constitutional: No symptoms reported EENT: No symptoms reported Cardiovascular: No symptoms reported Respiratory: No symptoms reported Gastrointestinal: Diarrhea, Nausea, Vomiting Genitourinary: No symptoms reported Male Genitourinary: No symptoms reported Musculoskeletal: No symptoms reported Skin: No symptoms reported Hematologic/Lymphatic: No symptoms reported Neurological/Psychological: No symptoms reported -: Yes All other systems reviewed and negative Physical Exam - Vital signs Vitals: Temp Pulse Resp BP Pulse Ox 98.3 F 104 H 16 146/67 H 97 10/30/18 19:56 10/30/18 19:56 10/30/18 19:56 10/30/18 19:56 10/30/18 19:56 - Notes Notes: PHYSICAL EXAMINATION: GENERAL: Well-appearing, well-nourished and in no acute distress. HEAD: Atraumatic, normocephalic. EYES: Pupils equal round and reactive to light, extraocular movements intact, sclera anicteric, conjunctiva are normal. ENT: Nares patent, oropharynx clear without exudates. Moist mucous membranes. NECK: Normal range of motion, supple without lymphadenopathy LUNGS: Breath sounds clear to auscultation bilaterally and equal. No wheezes rales or rhonchi. HEART: Regular rate and rhythm without murmurs ABDOMEN: Soft, nontender, nondistended abdomen. No guarding, no rebound. Suprapubic catheter in place. Musculoskeletal: Normal range of motion, no pitting or edema. No cyanosis. NEUROLOGICAL: Cranial nerves grossly intact. Normal speech, normal gait. Normal sensory, motor exams PSYCH: Normal mood, normal affect. SKIN: Warm, Dry, normal turgor, no rashes or lesions noted. Course - Re-evaluation Re-evalutation: 10/30/18 23:05 Labs obtained. UTI appreciated. Patient sensitive to levofloxacin from prior culture and sensitivities. I will start him on levofloxacin. I instructed him to take the medication as directed, to follow up with his primary care physician this week, and to return for worsening symptoms. Patient is agreeable with the plan of care. - Vital Signs Vital signs: Temp Pulse Resp BP Pulse Ox 98.3 F 104 H 16 146/67 H 97 10/30/18 19:56 10/30/18 19:56 10/30/18 19:56 10/30/18 19:56 10/30/18 19:56 - Laboratory Result Diagrams: 10/30/18 20:50 10/30/18 20:50 Laboratory results interpreted by me: 10/30/18 10/30/18 10/30/18 20:50 20:50 22:10 WBC 11.3 H Hgb 10.9 L Hct 33.6 L MCV 73 L MCH 23.7 L RDW 18.2 H Glucose 126 H ALT 20 L Total Protein 6.0 L Urine Glucose (UA) 50 H Urine Blood SMALL H Urine Nitrite POSITIVE H Ur Leukocyte Esterase LARGE H Discharge - Discharge Clinical Impression: Urinary tract infection Qualifiers: Urinary tract infection type: site unspecified Hematuria presence: without hematuria Qualified Code(s): N39.0 - Urinary tract infection, site not specified Nausea & vomiting Qualifiers: Vomiting type: unspecified Vomiting Intractability: non-intractable Qualified Code(s): R11.2 - Nausea with vomiting, unspecified Condition: Good Disposition: HOME, SELF-CARE Instructions: Vomiting ([facility]), Urinary Tract Infection ([facility]) Prescriptions: Levofloxacin [Levaquin 750 mg Tablet] 750 mg PO DAILY #5 tablet Referrals: DEVAUGHN SCHULTZ MD [ACTIVE STAFF] - Follow up as needed
[2018-10-30 21:25] LABS: ALANINE AMINOTRANSFERASE 20 U/L (21-72); ALBUMIN 3.6 g/dL (3.5-5.0); ALKALINE PHOSPHATASE 67 U/L (38-126); ANION GAP 7 (5-19); ASPARTATE AMINO TRANSFERASE 18 U/L (17-59); BILIRUBIN,DIRECT 0.2 mg/dL (0.0-0.4); BILIRUBIN,TOTAL 0.4 mg/dL (0.2-1.3); BLOOD UREA NITROGEN 13 mg/dL (7-20); CALCIUM 9.4 mg/dL (8.4-10.2); CARBON DIOXIDE 28 mmol/L (22-30); CHLORIDE 102 mmol/L (98-107); GLUCOSE 126 mg/dL (75-110); LIPASE 279.1 U/L (23-300); POTASSIUM 4.3 mmol/L (3.6-5.0); SODIUM 137.4 mmol/L (137-145)
[2018-10-30 22:24] LABS: APPEARANCE,URINE SLIGHTLY-CLOUDY; BILIRUBIN,URINE NEGATIVE (NEGATIVE); COLOR,URINE YELLOW; GLUCOSE, URINE 50 mg/dL (NEGATIVE); KETONES,URINE NEGATIVE (NEGATIVE); LEUKOCYTE ESTERASE,URINE LARGE (NEGATIVE); NITRITE,URINE POSITIVE (NEGATIVE); PROTEIN,URINE NEGATIVE (NEGATIVE); URINE SPECIFIC GRAVITY 1.014; UROBILINOGEN,URINE NEGATIVE mg/dL (<2.0)
[2018-10-30] MEDS ORDERED: LEVOFLOXACIN 750 MG TABLET PO ONE (22:31)
[2018-10-30] MEDS ORDERED: KETOROLAC TROMETHAMINE INJ/PF 30 MG/1 ML SDV IV ONE (22:31)
[2018-10-31 00:57] VITALS: BP 127/67
== END 2018-10-30 23:20 | disposition home or self-care (01) ==
LOC: ER 19:42
DX: N39.0 Urinary tract infection, site not specified (principal); R11.2 Nausea with vomiting, unspecified; R19.7 Diarrhea, unspecified
CPT/HCPCS: 99284; 96361; 96374; 96375; 36415; 87086; 83690; 85025; 87088; 80053; 81001; 87186; J1885; J2405; J7030; A9270

== ENCOUNTER 2018-11-05 16:30 | Emergency (ER) | payer MEDICARE ==
[2018-11-05] MEDS ORDERED: IBUPROFEN 600 MG TABLET PO ONE (16:44)
[2018-11-05] MEDS ORDERED: BACITRACIN ZINC OINTMENT 15 GM TP ONE (16:44)
[2018-11-05] MEDS ORDERED: DOXYCYCLINE HYCLATE 100 MG TABLET PO ONE (16:47)
--- NOTE | 2018-11-05 16:47 | ER Document Report ---
ED Medical Screen (RME) - General Chief Complaint: Skin Problem Stated Complaint: LACERATION ON BUTT Time Seen by Provider: 11/05/18 16:42 Mode of Arrival: Ambulatory Information source: Patient TRAVEL OUTSIDE OF THE [place] IN LAST 30 DAYS: No - HPI Patient complains to provider of: Leg wound Onset: Other - This 48-year-old gentleman who has a history of transverse myelitis as well as loss of sensation inferior to the level of the nipple following a flu shot several years ago that presents for evaluation of some erosion and pain over the last posterior glute which developed over the last 2 days and was more painful today prompting him to seek evaluation in the emergency department. Specifically denies any fevers or chills, loss of consciousness, pain elsewhere. He notes that he had been previously on antibiotic for a UTI which she does chronically have because of his indwelling suprapubic catheter. He has not tried anything to try make it better, nothing is seem to make it better or worse. He did ask for Motrin to help with pain. - Related Data Allergies/Adverse Reactions: No Known Allergies Allergy (Verified 10/19/18 10:56) Past Medical History - General Information source: Patient - Social History Cigarette use (# per day): Yes Chew tobacco use (# tins/day): No Frequency of alcohol use: None Drug Abuse: None Lives with: Alone Renal/ Medical History: Reports: Hx Kidney Stones. Denies: Hx Peritoneal Dialysis Psychiatric Medical History: Reports: Hx Bipolar Disorder, Hx Borderline Personality Disorder, Hx Depression Past Surgical History: Reports: Hx Cholecystectomy, Hx Genitourinary Surgery - Suprapubic catheter - Immunizations Immunizations up to date: Yes Review of Systems - Review of Systems -: Yes All other systems reviewed and negative Physical Exam - Vital signs Interpretation: Normal - General General appearance: Appears well, Alert - HEENT Head: Normocephalic, Atraumatic Eyes: Normal Pupils: PERRL - Respiratory Respiratory status: No respiratory distress Chest status: Nontender Breath sounds: Normal Chest palpation: Normal - Cardiovascular Rhythm: Regular Heart sounds: Normal auscultation Murmur: No - Abdominal Inspection: Normal Distension: No distension Bowel sounds: Normal Tenderness: Nontender Organomegaly: No organomegaly - Back Back: Normal, Nontender - Extremities General upper extremity: Normal inspection, Nontender, Normal color, Normal ROM, Normal temperature General lower extremity: Normal inspection, Nontender, Normal color, Normal ROM, Normal temperature, Normal weight bearing. No: Martin's sign - Neurological Neuro grossly intact: Yes Cognition: Normal Orientation: AAOx4 Holly Coma Scale Eye Opening: Spontaneous Holly Coma Scale Verbal: Oriented [place] Coma Scale Motor: Obeys Commands Holly Coma Scale Total: 15 Speech: Normal Motor strength normal: LUE, RUE, LLE, RLE Sensory: Other - Abnormal sensory examination below the level of the thorax - Psychological Associated symptoms: Normal affect, Normal mood - Skin Skin Temperature: Warm Skin Moisture: Dry Skin Color: Other - There is an ulcerated clean base of the wound inferior to the buttocks on the left thigh, looks like it could be the beginning of decubitus ulcer, is fairly well clean with a pink shanika edge no obvious purulent drainage. There is granulation tissue in the base of this. There is no obvious underlying fluctuance slight erythema surrounding. Course - Re-evaluation Re-evalutation: 11/05/18 16:51 This is a pleasant 48-year-old man that presents for an erythematous ulcerated lesion on his left buttocks. This in the thigh just inferior to the level of the glue. This is a gentleman who does have a abnormal sensory examination because of transverse myelitis as such we will preferentially treat for covering possible developing cellulitis. We will treat with doxycycline as he has been on many medications in the past including Keflex recently. Patient undergo treatment conservatively with discharge and return precautions. Doctor's Discharge - Discharge Clinical Impression: Erythema Skin ulcer Qualifiers: Non-pressure ulcer stage: unspecified non-pressure ulcer stage Qualified Code(s): L98.499 - Non-pressure chronic ulcer of skin of other sites with unspecified severity Condition: Good Disposition: HOME, SELF-CARE Instructions: Cellulitis ([facility]) Additional Instructions: You were seen today in the emergency department for the pain as well as erosion in your skin. It looks like you have a small ulcer over the left posterior thigh. There is some swelling in the skin around this which I am concerned may be a developing infection in the skin. I have given you an antibiotic called doxycycline which he should take twice daily for the next week. Use the antibiotic ointment prescribed to you. Keep the antibiotic ointment on top of the wound and keep it covered with a gauze. Change the bandage at least twice daily. Return in case of worsening fevers, chills in case the swelling begins to spread if you begin to feel much worse cannot eat or drink. Prescriptions: Doxycycline Hyclate 100 mg PO BID 7 Days #14 capsule
[2018-11-05 17:15] VITALS: BP 150/80
== END 2018-11-05 17:21 | disposition home or self-care (01) ==
LOC: ER 16:30
DX: L53.9 Erythematous condition, unspecified (principal); L98.499 Non-pressure chronic ulcer of skin of other sites with unspecified severity; Z87.442 Personal history of urinary calculi; Z90.49 Acquired absence of other specified parts of digestive tract
CPT/HCPCS: 99283; A9270 ×2; J3490

== ENCOUNTER 2018-11-09 15:33 | Emergency (ER) | payer MEDICARE ==
--- NOTE | 2018-11-09 16:55 | ER Document Report ---
ED Medical Screen (RME) - General Chief Complaint: Urinary Problem Stated Complaint: URINARY ISSUES Time Seen by Provider: 11/09/18 16:39 Mode of Arrival: Ambulatory Information source: Patient Notes: Patient is a 48-year-old male well-known to the hospital here comes in today with continuing complaints of urinary symptomatology. He also complains of abdominal pain with having chills and sweating with nausea but no vomiting. Patient has a long history of UTIs with a suprapubic catheter in the states that it is backing up and filling up in and ruptured again. He is complaining that his abdominal pain is increasing with out any relenting since he has been on the Levaquin. He feels the Levaquin he was placed on is not been on its proper job and he does not want to become "septic again". Patient also requests to have a list of local medical practitioners he can use as a primary care provider. He does state that when he first started Levaquin 4 days ago that it helped for a day or so but then the pain and discomfort is come right back. She is here to be reevaluated and have his Vo catheter rechecked again. TRAVEL OUTSIDE OF THE [place] IN LAST 30 DAYS: No - HPI Onset: Last week Onset/Duration: Constant Associated Symptoms: Chills, Nausea, Sweating Exacerbated by: Denies Relieved by: Denies Similar symptoms previously: Yes Recently seen / treated by doctor: Yes - Related Data Smoking: Non-smoker Frequency of alcohol use: Rare Drug Abuse: None Allergies/Adverse Reactions: No Known Allergies Allergy (Verified 11/09/18 15:34) Past Medical History - General Information source: Patient - Social History Cigarette use (# per day): No Chew tobacco use (# tins/day): No Frequency of alcohol use: None Drug Abuse: None Lives with: Alone Family history: Reviewed & Not Pertinent Renal/ Medical History: Reports: Hx Kidney Stones. Denies: Hx Peritoneal Dialysis Psychiatric Medical History: Reports: Hx Bipolar Disorder, Hx Borderline Personality Disorder, Hx Depression Past Surgical History: Reports: Hx Cholecystectomy, Hx Genitourinary Surgery - Suprapubic catheter - Immunizations Immunizations up to date: Yes Review of Systems - Review of Systems Constitutional: No symptoms reported EENT: No symptoms reported Cardiovascular: No symptoms reported Respiratory: No symptoms reported Gastrointestinal: See HPI, Abdominal pain Genitourinary: See HPI, Flank pain Male Genitourinary: No symptoms reported Musculoskeletal: No symptoms reported Skin: No symptoms reported Hematologic/Lymphatic: No symptoms reported Neurological/Psychological: No symptoms reported -: Yes All other systems reviewed and negative Physical Exam - Vital signs Vitals: Temp Pulse Resp BP Pulse Ox 98.5 F 105 H 17 134/69 H 98 11/09/18 15:42 11/09/18 15:42 11/09/18 15:42 11/09/18 15:42 11/09/18 15:42 Interpretation: Hypertensive, Tachycardic - Notes Notes: Physical exam. Patient is a well-nourished well-developed 48-year-old male who is in no apparent distress on physical exam today. Patient actually talks consistently and constantly. He does not appear to be very ill at the moment. He does smell of urine badly. Examination of the chest shows patient has bilateral breath sounds breath sounds increased and clear to auscultation. Abdominal exam shows some mild tenderness in the upper quads. Bowel sounds are present. Cardiac is slightly tacky at 105. Unable to assess suprapubic catheter in triage. I have made preliminary evaluation the patient and placing orders for him to be further for evaluated by a another provider in the main portion of the ER. This is to get him started and to get him to a room. Final evaluation will be made by another provider. Course - Vital Signs Vital signs: Temp Pulse Resp BP Pulse Ox 98.5 F 105 H 17 134/69 H 98 11/09/18 15:42 11/09/18 15:42 11/09/18 15:42 11/09/18 15:42 11/09/18 15:42 Doctor's Discharge - Discharge Clinical Impression: Urinary tract infection Qualifiers: Urinary tract infection type: site unspecified Hematuria presence: without hematuria Qualified Code(s): N39.0 - Urinary tract infection, site not specified
[2018-11-09 17:44] LABS: ABSOLUTE BASOPHILS # (AUTO) 0.1 10^3/uL (0.0-0.2); ABSOLUTE EOSINOPHILS # (AUTO) 0.2 10^3/uL (0.0-0.6); ABSOLUTE LYMPHOCYTES (AUTO) 1.9 10^3/uL (0.5-4.7); ABSOLUTE MONOCYTES (AUTO) 0.8 10^3/uL (0.1-1.4); ABSOLUTE NEUT (AUTO) 8.7 10^3/uL (1.7-8.2); BASOPHILS % (AUTO) 1.2 % (0-2); HEMATOCRIT 36.9 % (37.9-51.0); HEMOGLOBIN 11.7 g/dL (13.5-17.0); LYMPHOCYTES % (AUTO) 16.3 % (13-45); MEAN CORPUSCULAR HEMOGLOBIN 22.9 pg (27.0-33.4); MEAN CORPUSCULAR HGB CONC 31.6 g/dL (32.0-36.0); MEAN CORPUSCULAR VOLUME 72 fl (80-97); MONOCYTES % (AUTO) 6.6 % (3-13); PLATELET COUNT 306 10^3/uL (150-450); RED CELL DISTRIBUTION WIDTH 18.9 % (11.5-14.0); SEGMENTED NEUTROPHILS % (AUTO) 73.9 % (42-78); TOTAL CELLS COUNTED % (AUTO) 100 %; WHITE BLOOD COUNT 11.8 10^3/uL (4.0-10.5)
[2018-11-09 18:05] LABS: ALANINE AMINOTRANSFERASE 61 U/L (21-72); ALBUMIN 3.9 g/dL (3.5-5.0); ALKALINE PHOSPHATASE 74 U/L (38-126); ANION GAP 11 (5-19); ASPARTATE AMINO TRANSFERASE 58 U/L (17-59); BILIRUBIN,DIRECT 0.2 mg/dL (0.0-0.4); BILIRUBIN,TOTAL 0.4 mg/dL (0.2-1.3); BLOOD UREA NITROGEN 12 mg/dL (7-20); CALCIUM 9.1 mg/dL (8.4-10.2); CARBON DIOXIDE 28 mmol/L (22-30); CHLORIDE 102 mmol/L (98-107); GLUCOSE 90 mg/dL (75-110); POTASSIUM 4.3 mmol/L (3.6-5.0); SODIUM 140.5 mmol/L (137-145); TOTAL PROTEIN 6.4 g/dL (6.3-8.2)
--- NOTE | 2018-11-09 18:10 | RADIOLOGY REPORT (SQ) ---
EXAM DESCRIPTION: KUB/ABDOMEN (SINGLE VIEW) COMPLETED DATE/TIME: 11/09/2018 6:01 pm REASON FOR STUDY: abd distention COMPARISON: 07/31/2018 NUMBER OF VIEWS: One view. TECHNIQUE: Supine radiographic image of the abdomen acquired. LIMITATIONS: None. FINDINGS: BOWEL GAS PATTERN: Nonobstructive gas pattern. Considerable stool is present. CALCIFICATIONS: No suspicious calcifications. SOFT TISSUES: No gross mass or suggestion of organomegaly. HARDWARE: None in the abdomen. BONES: No acute fracture. No worrisome bone lesions. OTHER: No other significant finding. IMPRESSION: Constipation. TECHNICAL DOCUMENTATION: JOB ID: [id number] [employer]- All Rights Reserved Reading location - IP/workstation name: [email or web address]
[2018-11-09 18:17] LABS: AMORPHOUS SEDIMENT,URINE TRACE /HPF; APPEARANCE,URINE SLIGHTLY-CLOUDY; BILIRUBIN,URINE NEGATIVE (NEGATIVE); COLOR,URINE YELLOW; GLUCOSE, URINE 50 mg/dL (NEGATIVE); KETONES,URINE TRACE mg/dL (NEGATIVE); LEUKOCYTE ESTERASE,URINE SMALL (NEGATIVE); NITRITE,URINE POSITIVE (NEGATIVE); PROTEIN,URINE 100 mg/dL (NEGATIVE); UROBILINOGEN,URINE NEGATIVE mg/dL (<2.0)
[2018-11-09] MEDS ORDERED: ONDANSETRON 4 MG TAB.RAPDIS PO ONE (19:05)
[2018-11-09] MEDS ORDERED: OXYBUTYNIN CHLORIDE 5 MG TABLET PO ONE (19:05)
[2018-11-09 19:31] VITALS: BP 139/70
[2018-11-09] MEDS ORDERED: KETOROLAC TROMETHAMINE INJ/PF 30 MG/1 ML SDV IV ONE (19:54)
[2018-11-09] MEDS ORDERED: FENTANYL CITRATE INJ/PF 100 MCG/2 ML AMPUL IV PRN (19:54)
[2018-11-09] MEDS ORDERED: ONDANSETRON ODT 4 MG TAB (6 TAB/ER DISP) PO PRN (19:56)
--- NOTE | 2018-11-09 19:58 | ER Document Report ---
ED General - General Chief Complaint: Urinary Problem Stated Complaint: URINARY ISSUES Time Seen by Provider: 11/09/18 16:39 Mode of Arrival: Ambulatory Notes: Patient is a 48-year-old male with a past medical history of transverse myelitis, suprapubic catheter placement presents with concerns of a possible ongoing UTI. The patient is a very difficult historian, is more interested in talking about politics with me then actually explaining what is bring him to the emergency department today. The patient states that he has had increased foul order from his suprapubic catheter and believes that the Levaquin that he was placed on has not cleared his infection. He states that he has also had some lower abdominal pain that is a mild, aching, cramping pain. Nothing improves or worsens his symptoms. Has not seen his primary doctor regarding today's concerns. No fever. TRAVEL OUTSIDE OF THE [place] IN LAST 30 DAYS: No - Related Data Allergies/Adverse Reactions: No Known Allergies Allergy (Verified 11/09/18 15:34) Past Medical History - General Information source: Patient - Social History Smoking Status: Never Smoker Cigarette use (# per day): No Chew tobacco use (# tins/day): No Frequency of alcohol use: None Drug Abuse: None Lives with: Alone Family History: Reviewed & Not Pertinent, Hypertension Patient has suicidal ideation: No Patient has homicidal ideation: No Renal/ Medical History: Reports: Hx Kidney Stones. Denies: Hx Peritoneal Dialysis Psychiatric Medical History: Reports: Hx Bipolar Disorder, Hx Borderline Personality Disorder, Hx Depression Past Surgical History: Reports: Hx Cholecystectomy, Hx Genitourinary Surgery - Suprapubic catheter - Immunizations Immunizations up to date: Yes Review of Systems - Review of Systems Notes: Constitutional: Negative for fever. HENT: Negative for sore throat. Eyes: Negative for visual changes. Cardiovascular: Negative for chest pain. Respiratory: Negative for shortness of breath. Gastrointestinal: Negative for abdominal pain, vomiting or diarrhea. Genitourinary: Positive for malodorous urine, increased urine output Musculoskeletal: Negative for back pain. Skin: Negative for rash. Neurological: Negative for headaches, weakness or numbness. 10 point ROS negative except as marked above and in HPI. Physical Exam - Vital signs Vitals: Temp Pulse Resp BP Pulse Ox 98.5 F 105 H 17 134/69 H 98 11/09/18 15:42 11/09/18 15:42 11/09/18 15:42 11/09/18 15:42 11/09/18 15:42 Interpretation: Tachycardic - Resolved at the time of my assessment heart rate 82 Notes: PHYSICAL EXAMINATION: GENERAL: Well-appearing, well-nourished and in no acute distress. HEAD: Atraumatic, normocephalic. EYES: Pupils equal round and reactive to light, extraocular movements intact, sclera anicteric, conjunctiva are normal. ENT: nares patent, oropharynx clear without exudates. Moist mucous membranes. NECK: Normal range of motion, supple without lymphadenopathy LUNGS: Breath sounds clear to auscultation bilaterally and equal. No wheezes rales or rhonchi. HEART: Regular rate and rhythm without murmurs ABDOMEN: Soft, nontender, normoactive bowel sounds. No guarding, no rebound. No masses appreciated. EXTREMITIES: Normal range of motion, no pitting or edema. No cyanosis. NEUROLOGICAL: No focal neurological deficits. Moves all extremities spont aneously and on command. PSYCH: Loquacious SKIN: Warm, Dry, normal turgor, suprapubic catheter in place, no erythema or induration near catheters insertion site. Course - Re-evaluation Re-evalutation: 11/09/18 19:57 Patient presents complaining of ongoing increased odor to his urine and pain around his suprapubic catheter site. States that he does not believe the Levaquin that he has been taking has been working for his urinary tract infection although his urine today does appear much improved from the and the urine culture did show sensitivity of all involved organisms to levofloxacin. The patient's vitals are within normal as. Abdominal exam is benign. Patient is well-known to me, states that his main concern is that his urine has not been medically cleared. Based on the patient's request we have not reinitiated an alternative antibiotic, cephalexin although I have advised him that I do not suspect that he has recurrent urinary tract infection at this time. I have advised him that he should have a suprapubic catheter changed has been almost 3 months. The remainder of his laboratory's are otherwise u nremarkable. At this time will discharge with return precautions and follow-up recommendations. Verbal discharge instructions given a the bedside and opportunity for questions given. Medication warnings reviewed. Patient is in agreement with this plan and has verbalized understanding of return precautions and the need for primary care follow-up in the next 24-72 hours. - Vital Signs Vital signs: Temp Pulse Resp BP Pulse Ox 98.1 F 84 17 139/70 H 98 11/09/18 19:30 11/09/18 19:30 11/09/18 19:30 11/09/18 19:30 11/09/18 19:30 - Laboratory Result Diagrams: 11/09/18 17:25 11/09/18 17:25 Laboratory results interpreted by me: 11/09/18 11/09/18 17:25 17:46 WBC 11.8 H Hgb 11.7 L Hct 36.9 L MCV 72 L MCH 22.9 L MCHC 31.6 L RDW 18.9 H Absolute Neutrophils 8.7 H Urine Protein 100 H Urine Glucose (UA) 50 H Urine Ketones TRACE H Urine Nitrite POSITIVE H Ur Leukocyte Esterase SMALL H Discharge - Discharge Clinical Impression: Urinary tract infection Qualifiers: Urinary tract infection type: site unspecified Hematuria presence: without hematuria Qualified Code(s): N39.0 - Urinary tract infection, site not specified Nausea and vomiting Qualifiers: Vomiting type: unspecified Vomiting Intractability: non-intractable Qualified Code(s): R11.2 - Nausea with vomiting, unspecified Condition: Good Disposition: HOME, SELF-CARE Additional Instructions: Your being treated for a possible recurrent urinary tract infection although your urine does look much improved from the last time you visited. Please take all the antibiotics as directed even if your symptoms have improved. Follow-up with your urologist for possible change out of your suprapubic catheter. Return to emergency room if you develop fever >101F, persistent vomiting, become lethargic, have severe pain in your sides, or any other symptoms that are concerning to you. Prescriptions: RX: Cephalexin Monohydrate [Keflex 500 mg Capsule] 500 mg PO Q6H 5 Days capsule RX: Oxybutynin Chloride [Oxybutynin Chloride ER] 5 mg PO DAILY #30 tab.er.24
== END 2018-11-09 21:05 | disposition home or self-care (01) ==
LOC: ER 15:33
DX: N39.0 Urinary tract infection, site not specified (principal); R11.2 Nausea with vomiting, unspecified; T85.9XXA Unspecified complication of internal prosthetic device, implant and graft, initial encounter; R10.30 Lower abdominal pain, unspecified; R39.198 Other difficulties with micturition; R00.0 Tachycardia, unspecified
CPT/HCPCS: 99283; 96374; 36415; 87086; 85025; 87088; 80053; 81001; 87186; 83605; 74018; A9270 ×3; J1885; S0119

== ENCOUNTER 2018-11-13 16:42 | Emergency (ER) | payer MEDICARE ==
[2018-11-13 16:48] VITALS: BP 149/76
--- NOTE | 2018-11-13 19:08 | ER Document Report ---
ED General - General Mode of Arrival: Ambulatory Information source: Patient TRAVEL OUTSIDE OF THE [place] IN LAST 30 DAYS: No - General Chief Complaint: Problem with Urinary Catheter Stated Complaint: CATH ISSUE Time Seen by Provider: 11/13/18 18:45 Notes: Patient presents to the emergency department with request for catheter change. Patient has a suprapubic catheter in place and has for many years. He states that the bag keeps falling off and states that he believes the catheter itself is contaminated. He is requesting a new catheter be placed. He has no other complaints and denies any fever or abdominal pain. He does report he is currently taking Bactrim for an ongoing urinary tract infection. (AKASH HEMPHILL) - Related Data Allergies/Adverse Reactions: No Known Allergies Allergy (Verified 11/13/18 16:42) Past Medical History - General Information source: Patient - Social History Smoking Status: Current Some Day Smoker Frequency of alcohol use: Occasional Drug Abuse: None Family History: Hypertension Renal/ Medical History: Reports: Hx Kidney Stones. Denies: Hx Peritoneal Dialysis Psychiatric Medical History: Reports: Hx Bipolar Disorder, Hx Borderline Personality Disorder, Hx Depression Past Surgical History: Reports: Hx Cholecystectomy, Hx Genitourinary Surgery - Suprapubic catheter - Immunizations Immunizations up to date: Yes Review of Systems - Review of Systems Constitutional: No symptoms reported EENT: No symptoms reported Cardiovascular: No symptoms reported Respiratory: No symptoms reported Gastrointestinal: No symptoms reported Genitourinary: See HPI Male Genitourinary: No symptoms reported Musculoskeletal: No symptoms reported Skin: No symptoms reported Hematologic/Lymphatic: No symptoms reported Neurological/Psychological: No symptoms reported Physical Exam - Vital signs Vitals: Temp Pulse Resp BP Pulse Ox 97.6 F 81 16 149/76 H 99 11/13/18 16:46 11/13/18 16:46 11/13/18 16:46 11/13/18 16:46 11/13/18 16:46 - Notes Notes: PHYSICAL EXAMINATION: GENERAL: Well-appearing, well-nourished and in no acute distress. HEAD: Atraumatic, normocephalic. EYES: Pupils equal round extraocular movements intact, conjunctiva are normal. ENT: Nares patent NECK: Normal range of motion LUNGS: No respiratory distress Abdomen: Suprapubic catheter to right lower quadrant. Musculoskeletal: Normal range of motion NEUROLOGICAL: Normal speech, normal gait. PSYCH: Normal mood, normal affect. SKIN: Warm, Dry, normal turgor, no rashes or lesions noted. (AKASH HEMPHILL) Course - Re-evaluation Re-evalutation: New 16 [place] suprapubic catheter was placed, patient provided with a leg bag per his request. Patient encouraged to continue taking the Bactrim that his urologist had started him on. Patient verbalizes understanding. (AKASH HEMPHILL) 11/14/18 20:19 I was personally available for consultation during this patient's worse. I did not personally evaluate the patient. (ROMERO SAUNDERS) - Vital Signs Vital signs: Temp Pulse Resp BP Pulse Ox 97.6 F 81 16 149/76 H 99 11/13/18 16:46 11/13/18 16:46 11/13/18 16:46 11/13/18 16:46 11/13/18 16:46 Discharge - Discharge Clinical Impression: Catheter (urine) change required Condition: Stable Disposition: HOME, SELF-CARE Additional Instructions: Your catheter was changed today. Please continue to take the Bactrim as outlined by your urologist. Return to the emergency department if you develop a fever, chills or any worsening symptoms.
== END 2018-11-13 19:30 | disposition home or self-care (01) ==
LOC: ER 16:42
DX: T83.9XXA Unspecified complication of genitourinary prosthetic device, implant and graft, initial encounter (principal); F17.200 Nicotine dependence, unspecified, uncomplicated
CPT/HCPCS: 51702; 99283

== ENCOUNTER 2018-11-18 17:51 | Emergency (ER) | payer MEDICARE ==
[2018-11-18 18:17] VITALS: BP 126/72
== END 2018-11-18 20:10 | disposition left against medical advice (07) ==
LOC: ER 17:51
DX: Z53.21 Procedure and treatment not carried out due to patient leaving prior to being seen by health care provider (principal)

== ENCOUNTER 2018-11-20 14:46 | Emergency (ER) | payer MEDICARE ==
[2018-11-20 14:59] VITALS: BP 139/69
[2018-11-20] MEDS ORDERED: NORMAL SALINE 1000 ML 1,000 ML IV ONE (15:13)
--- NOTE | 2018-11-20 15:15 | ER Document Report ---
ED Medical Screen (RME) - General Chief Complaint: Vomiting/Diarrhea Stated Complaint: DIARRHEA/VOMITING Time Seen by Provider: 11/20/18 15:06 Notes: 48 years old male with chronic pain syndrome, UTIs, presents today with abdominal pain nausea vomiting. TRAVEL OUTSIDE OF THE [place] IN LAST 30 DAYS: No - Related Data Allergies/Adverse Reactions: No Known Allergies Allergy (Verified 11/20/18 14:46) Past Medical History - Social History Chew tobacco use (# tins/day): No Frequency of alcohol use: None Drug Abuse: None Family history: Reviewed & Not Pertinent Renal/ Medical History: Reports: Hx Kidney Stones. Denies: Hx Peritoneal Dialysis Psychiatric Medical History: Reports: Hx Bipolar Disorder, Hx Borderline Personality Disorder, Hx Depression Past Surgical History: Reports: Hx Cholecystectomy, Hx Genitourinary Surgery - Suprapubic catheter - Immunizations Immunizations up to date: Yes Physical Exam - Vital signs Vitals: Temp Pulse Resp BP Pulse Ox 97.9 F 74 18 139/69 H 100 11/20/18 14:57 11/20/18 14:57 11/20/18 14:57 11/20/18 14:57 11/20/18 14:57 Course - Vital Signs Vital signs: Temp Pulse Resp BP Pulse Ox 97.9 F 74 18 139/69 H 100 11/20/18 14:57 11/20/18 14:57 11/20/18 14:57 11/20/18 14:57 11/20/18 14:57
--- NOTE | 2018-11-20 16:13 | RADIOLOGY REPORT (SQ) ---
EXAM DESCRIPTION: ACUTE ABDOMEN SERIES COMPLETED DATE/TIME: 11/20/2018 4:01 pm REASON FOR STUDY: Abdominal pain COMPARISON: 11/09/2018 NUMBER OF VIEWS: Three views. TECHNIQUE: Frontal chest, supine abdomen and upright/decubitus abdomen radiographic images acquired. LIMITATIONS: None. FINDINGS: CHEST: Lungs clear of infiltrates. FREE AIR: None. No abnormal gas collections. BOWEL GAS PATTERN: Nonobstructive pattern. No dilated loops or air fluid levels. CALCIFICATIONS: No suspicious calcifications. Scattered pelvic phleboliths. HARDWARE: Prior cholecystectomy. Evidence of prior hernia repair and bowel resection with surgical t acks and chain naresh over left abdomen. Catheter tubing overlies lower pelvis. Partially visualiz ed cervical fusion hardware SOFT TISSUES: No gross mass or suggestion of organomegaly. BONES: No acute fracture. No worrisome bone lesions. OTHER: No other significant finding. IMPRESSION: No evidence of intestinal obstruction or other acute intra-abdominal process. TECHNICAL DOCUMENTATION: JOB ID: [id number] [employer]- All Rights Reserved Reading location - IP/workstation name: [email or web address]
[2018-11-20 16:43] LABS: ABSOLUTE EOSINOPHILS # (AUTO) 0.1 10^3/uL (0.0-0.6); ABSOLUTE LYMPHOCYTES (AUTO) 1.2 10^3/uL (0.5-4.7); ABSOLUTE MONOCYTES (AUTO) 0.8 10^3/uL (0.1-1.4); ABSOLUTE NEUT (AUTO) 2.7 10^3/uL (1.7-8.2); BASOPHILS % (AUTO) 0.9 % (0-2); EOSINOPHILS % (AUTO) 2.9 % (0-6); HEMATOCRIT 35.6 % (37.9-51.0); HEMOGLOBIN 11.2 g/dL (13.5-17.0); LYMPHOCYTES % (AUTO) 24.4 % (13-45); MEAN CORPUSCULAR HEMOGLOBIN 22.8 pg (27.0-33.4); MEAN CORPUSCULAR HGB CONC 31.4 g/dL (32.0-36.0); MEAN CORPUSCULAR VOLUME 73 fl (80-97); MONOCYTES % (AUTO) 16.2 % (3-13); PLATELET COUNT 277 10^3/uL (150-450); RED CELL DISTRIBUTION WIDTH 19.5 % (11.5-14.0); SEGMENTED NEUTROPHILS % (AUTO) 55.6 % (42-78); TOTAL CELLS COUNTED % (AUTO) 100 %; WHITE BLOOD COUNT 4.8 10^3/uL (4.0-10.5)
[2018-11-20] MEDS ORDERED: MORPHINE SULFATE 10 MG/ML INJ IV ONE (17:01)
[2018-11-20] MEDS ORDERED: METOCLOPRAMIDE HCL INJ/PF 10 MG/2 ML SDV IV ONE (17:01)
--- NOTE | 2018-11-20 17:02 | ER Document Report ---
ED General - General Chief Complaint: Vomiting/Diarrhea Stated Complaint: DIARRHEA/VOMITING Time Seen by Provider: 11/20/18 15:06 TRAVEL OUTSIDE OF THE [place] IN LAST 30 DAYS: No - HPI Notes: Patient is a 48-year-old male with a history of chronic pain, transverse myelitis, suprapubic catheter placement, recurrent UTI, well-known to the emergency department who presents to the ED complaining of intermittent abdominal cramping, nausea, vomiting, and diarrhea over the last few days. Patient states that he has had multiple episodes of diarrhea today and did have one accident in his pants here in the emergency department. Patient states that he is nauseous, but has not vomited recently. Patient states that he has not been able to take any of his pain medicine because of the nausea and vomiting so he has had increased generalized pain, but always has chronic pain. Patient has been on antibiotics recently including Levaquin and Keflex. He has no other concerns or complaints. No other new foods that he is aware of, but he did eat [employer] recently and is not sure if that is causing his problems. Denies any headache, fever, neck pain, URI, sore throat, chest pain, palpitations, syncope, cough, shortness of breath, wheeze, dyspnea, dysuria, hematuria, or rash. - Related Data Allergies/Adverse Reactions: No Known Allergies Allergy (Verified 11/20/18 14:46) Past Medical History - Social History Smoking Status: Never Smoker Chew tobacco use (# tins/day): No Frequency of alcohol use: None Drug Abuse: None Family History: Hypertension Patient has suicidal ideation: No Patient has homicidal ideation: No Renal/ Medical History: Reports: Hx Kidney Stones. Denies: Hx Peritoneal Dialysis Psychiatric Medical History: Reports: Hx Bipolar Disorder, Hx Borderline Personality Disorder, Hx Depression Past Surgical History: Reports: Hx Cholecystectomy, Hx Genitourinary Surgery - Suprapubic catheter - Immunizations Immunizations up to date: Yes Review of Systems - Review of Systems -: Yes All other systems reviewed and negative Physical Exam - Vital signs Vitals: Temp Pulse Resp BP Pulse Ox 97.9 F 74 18 139/69 H 100 11/20/18 14:57 11/20/18 14:57 11/20/18 14:57 11/20/18 14:57 11/20/18 14:57 - Notes Notes: PHYSICAL EXAMINATION: GENERAL: Well-appearing, well-nourished and in no acute distress. HEAD: Atraumatic, normocephalic. EYES: Pupils equal round and reactive to light, extraocular movements intact, sc char anicteric, conjunctiva are normal. ENT: Nares patent and without discharge. oropharynx clear without exudates. No tonsilar hypertrophy or erythema. Moist mucous membranes. NECK: Normal range of motion, supple without lymphadenopathy LUNGS: Breath sounds clear to auscultation bilaterally and equal. No wheezes rales or rhonchi. HEART: Regular rate and rhythm without murmurs, rubs, gallops. ABDOMEN: Soft, nontender, nondistended abdomen. No guarding, no rebound. No masses appreciated. Normal bowel sounds present. No CVA tenderness bilaterally. Musculoskeletal: FROM to passive/active. Strength 5+/5. Extremities: No cyanosis, clubbing, or edema b/l. Peripheral pulses 2+. Capillary refill less than 3 seconds. NEUROLOGICAL: Normal speech, normal gait. PSYCH: Normal mood, normal affect. SKIN: Warm, Dry, normal turgor, no rashes or lesions noted. Course - Re-evaluation Re-evalutation: 11/20/18 19:05 Patient is an afebrile, well-hydrated, 48-year-old male who presents to the ED with symptoms of acute gastroenteritis. I do suspect that his illness is most likely viral at this time. Vitals are acceptable without any significant tachycardia, tachypnea, or hypoxia. PE is otherwise unremarkable. Patient's abdomen is soft and nontender. His stool was visualized and formed-brown, but soft/creamy in description. Patient received fluids and nausea medication. Patient did not have any further episodes of loose stool or any episodes of emesis throughout his stay. Patient states that he is feeling much better. CBC, CMP, lipase, cdif was otherwise unremarkable for acute pathology. No furt her labs or imaging warranted. Low suspicion/risk for acute appendicitis, bowel obstruction, acute cholecystitis, perforated diverticulitis, incarcerated hernia, pancreatitis, perforated ulcer, peritonitis, sepsis, testicular torsion, or other systemic emergent condition at this time. Patient is aware that his condition can change from initial presentation and he needs to monitor symptoms closely and seek medical attention if any acute changes. I will sent home with a prescription for Zofran. Conservative measures otherwise for symptoms. Recheck with PCM in 2-3 days. Consider consult with a rn intensive care unit. Return to the ED with any worsening/concerning symptoms otherwise as reviewed in discharge. Patient is in agreement. - Vital Signs Vital signs: Temp Pulse Resp BP Pulse Ox 97.9 F 74 18 139/69 H 100 11/20/18 14:57 11/20/18 14:57 11/20/18 14:57 11/20/18 14:57 11/20/18 14:57 - Laboratory Result Diagrams: 11/20/18 16:30 11/20/18 16:30 Laboratory results interpreted by me: 11/20/18 11/20/18 16:30 16:30 Hgb 11.2 L Hct 35.6 L MCV 73 L MCH 22.8 L MCHC 31.4 L RDW 19.5 H Monocytes % 16.2 H Total Protein 6.1 L Discharge - Discharge Clinical Impression: Nausea vomiting and diarrhea Condition: Stable Disposition: HOME, SELF-CARE Instructions: Diarrhea, Nonspecific ([facility]), Vomiting ([facility]) Additional Instructions: Maintain adequate fluid and food intake [place] diet ([employer] Bananas, rice, apples, toast, etc Zofran as needed tylenol if needed Monitor for any worsening symptoms Recheck with your PCM in 2-3 days Consider consult with Gastroenterology for ongoing/worsening symptoms Return to the ED with any worsening symptoms and/or development of fever, headache, chest pain, palpitations, syncope, shortness of breath, trouble breathing, abdominal pain, n/v/d, blood in stool/urine, weakness, or other worsening symptoms that are concerning to you. Prescriptions: Ondansetron [Zofran Odt 4 mg Tablet] 1 - 2 tab PO Q4H PRN #15 tab.rapdis PRN Reason: For Nausea/Vomiting Forms: Elevated Blood Pressure Referrals: CALIN STEWARD MD [ACTIVE STAFF] - Follow up as needed RITIKA LOW MD [ACTIVE STAFF] - Follow up as needed
[2018-11-20 17:12] LABS: ALANINE AMINOTRANSFERASE 29 U/L (21-72); ALBUMIN 3.8 g/dL (3.5-5.0); ALKALINE PHOSPHATASE 75 U/L (38-126); ANION GAP 8 (5-19); ASPARTATE AMINO TRANSFERASE 22 U/L (17-59); BILIRUBIN,DIRECT 0.2 mg/dL (0.0-0.4); BILIRUBIN,TOTAL 0.3 mg/dL (0.2-1.3); BLOOD UREA NITROGEN 12 mg/dL (7-20); CALCIUM 8.9 mg/dL (8.4-10.2); CARBON DIOXIDE 28 mmol/L (22-30); CHLORIDE 102 mmol/L (98-107); GLUCOSE 76 mg/dL (75-110); LIPASE 215.8 U/L (23-300); POTASSIUM 4.1 mmol/L (3.6-5.0); SODIUM 137.6 mmol/L (137-145); TOTAL PROTEIN 6.1 g/dL (6.3-8.2)
[2018-11-20] MEDS ORDERED: ONDANSETRON ODT 4 MG TAB (6 TAB/ER DISP) PO PRN (19:09)
== END 2018-11-20 19:47 | disposition home or self-care (01) ==
LOC: ER 14:46
DX: R11.2 Nausea with vomiting, unspecified (principal); R19.7 Diarrhea, unspecified; R10.9 Unspecified abdominal pain; G89.29 Other chronic pain; Z87.442 Personal history of urinary calculi; Z87.440 Personal history of urinary (tract) infections; Z90.49 Acquired absence of other specified parts of digestive tract
CPT/HCPCS: 99284; 96361; 96374; 96375; 36415; 87045; 87205; 83690; 85025; 80053; 87493; 74022; J2765; J2270; J7030; A9270

== ENCOUNTER 2018-11-27 15:40 | Emergency (ER) | payer MEDICARE ==
[2018-11-27 19:17] LABS: ABSOLUTE BASOPHILS # (AUTO) 0.2 10^3/uL (0.0-0.2); ABSOLUTE EOSINOPHILS # (AUTO) 0.3 10^3/uL (0.0-0.6); ABSOLUTE LYMPHOCYTES (AUTO) 1.8 10^3/uL (0.5-4.7); ABSOLUTE MONOCYTES (AUTO) 0.8 10^3/uL (0.1-1.4); ABSOLUTE NEUT (AUTO) 6.5 10^3/uL (1.7-8.2); BASOPHILS % (AUTO) 1.7 % (0-2); EOSINOPHILS % (AUTO) 3.2 % (0-6); HEMATOCRIT 35.5 % (37.9-51.0); HEMOGLOBIN 11.3 g/dL (13.5-17.0); LYMPHOCYTES % (AUTO) 19.2 % (13-45); MEAN CORPUSCULAR HEMOGLOBIN 22.9 pg (27.0-33.4); MEAN CORPUSCULAR HGB CONC 31.9 g/dL (32.0-36.0); MEAN CORPUSCULAR VOLUME 72 fl (80-97); MONOCYTES % (AUTO) 8.6 % (3-13); PLATELET COUNT 353 10^3/uL (150-450); RED BLOOD COUNT 4.94 10^6/uL (4.35-5.55); RED CELL DISTRIBUTION WIDTH 19.2 % (11.5-14.0); SEGMENTED NEUTROPHILS % (AUTO) 67.3 % (42-78); TOTAL CELLS COUNTED % (AUTO) 100 %; WHITE BLOOD COUNT 9.6 10^3/uL (4.0-10.5)
[2018-11-27] MEDS ORDERED: LOPERAMIDE HCL 2 MG CAPSULE PO ONE (19:26)
[2018-11-27] MEDS ORDERED: ONDANSETRON HCL INJ/PF 4 MG/2 ML SDV IV ONE (19:26)
[2018-11-27] MEDS ORDERED: HYDROMORPHONE HCL INJ/PF 2 MG/ML AMPULE IV ONE (19:26)
[2018-11-27 19:38] LABS: ALANINE AMINOTRANSFERASE 26 U/L (21-72); ALBUMIN 3.5 g/dL (3.5-5.0); ALKALINE PHOSPHATASE 69 U/L (38-126); ANION GAP 6 (5-19); ASPARTATE AMINO TRANSFERASE 21 U/L (17-59); BILIRUBIN,DIRECT 0.2 mg/dL (0.0-0.4); BILIRUBIN,TOTAL 0.3 mg/dL (0.2-1.3); BLOOD UREA NITROGEN 10 mg/dL (7-20); CALCIUM 8.9 mg/dL (8.4-10.2); CARBON DIOXIDE 26 mmol/L (22-30); CHLORIDE 105 mmol/L (98-107); GLUCOSE 92 mg/dL (75-110); LIPASE 236.4 U/L (23-300); POTASSIUM 4.2 mmol/L (3.6-5.0); SODIUM 136.9 mmol/L (137-145); TOTAL PROTEIN 5.8 g/dL (6.3-8.2)
[2018-11-27] MEDS ORDERED: ONDANSETRON HCL INJ/PF 4 MG/2 ML SDV IM ONE (19:54)
[2018-11-27] MEDS ORDERED: HYDROMORPHONE HCL INJ/PF 2 MG/ML AMPULE IM ONE (19:54)
--- NOTE | 2018-11-27 20:15 | ER Document Report ---
ED General - General Mode of Arrival: Ambulatory Information source: Patient TRAVEL OUTSIDE OF THE [place] IN LAST 30 DAYS: No <DORA WEINSTEIN - Last Filed: 11/27/18 22:43> <EUGENIANAPOLEONFOX - Last Filed: 11/28/18 06:55> - General Chief Complaint: Nausea/Vomiting/Diarrhea Stated Complaint: NAUSEA, VOMITING, POSSIBLE ABSCESS Time Seen by Provider: 11/27/18 19:04 Notes: Patient is 48 year old male with a pang catheter, PTSD, bipolar disorder presents to the emergency department complaining of nausea, vomiting and diarrhea onset 1 week ago. Patient describes his diarrhea is brownish in appearance. He states he was seen approximately 1 week ago and was given a nausea medication. He states the medications helped relieved his symptoms but he has since run out. He states he is on chronic pain management but has been unable to to keep his medications down. He also complains of being unable to sleep and complains of chills. He denies any bloody stool or hematemesis. He also expresses concern for a possible abscess on his left buttocks. Patient states he has an appointment with his GI specialist, Dr. Phan, next week. (DORA WEINSTEIN) - Related Data Allergies/Adverse Reactions: No Known Allergies Allergy (Verified 11/27/18 15:46) Past Medical History - General Information source: Patient - Social History Smoking Status: Never Smoker Frequency of alcohol use: None Drug Abuse: None Family History: Hypertension Patient has suicidal ideation: No Patient has homicidal ideation: No Renal/ Medical History: Reports: Hx Kidney Stones Psychiatric Medical History: Reports: Hx Bipolar Disorder, Hx Borderline Personality Disorder, Hx Depression Past Surgical History: Reports: Hx Cholecystectomy, Hx Genitourinary Surgery - Suprapubic catheter - Immunizations Immunizations up to date: Yes <DORA WEINSTEIN - Last Filed: 11/27/18 22:43> Review of Systems - Review of Systems Constitutional: No symptoms reported EENT: No symptoms reported Cardiovascular: No symptoms reported Respiratory: No symptoms reported Gastrointestinal: See HPI, Abdominal pain, Diarrhea, Nausea, Vomiting Genitourinary: No symptoms reported Musculoskeletal: See HPI Skin: See HPI Hematologic/Lymphatic: No symptoms reported Neurological/Psychological: No symptoms reported -: Yes All other systems reviewed and negative <DORA WEINSTEIN - Last Filed: 11/27/18 22:43> Physical Exam <JS,TAMYEMI - Last Filed: 11/27/18 22:43> - Vital signs Vitals: Temp Pulse Resp BP Pulse Ox 97.8 F 82 18 145/70 H 99 11/27/18 16:06 11/27/18 16:06 11/27/18 16:06 11/27/18 16:06 11/27/18 16:06 - Notes Notes: GENERAL: Alert, interacts well. No acute distress. HEAD: Normocephalic, atraumatic. EYES: Pupils equal, round, and reactive to light. Extraocular movements intact. ENT: Oral mucosa moist, tongue midline. NECK: Full range of motion. Supple. Trachea midline. LUNGS: Clear to auscultation bilaterally, no wheezes, rales, or rhonchi. No respiratory distress. HEART: Regular rate and rhythm. No murmurs, gallops, or rubs. ABDOMEN: Soft, diffuse tenderness to palpation, no guarding, rigidity or rebounding. Non-distended. Bowel sounds present in all 4 quadrants. EXTREMITIES: Moves all 4 extremities spontaneously. NEUROLOGICAL: Alert and oriented x3. Normal speech. PSYCH: Normal affect, normal mood. SKIN: Warm, dry, normal turgor. 1cmx1.5cm erosion to the left lower buttocks, minimal surrounding erythema, some grannulation. GI/: Pang catheter in place. (DORA WEINSTEIN) Course - Laboratory Result Diagrams: 11/27/18 19:08 11/27/18 19:08 <DORA WEINSTEIN - Last Filed: 11/27/18 22:43> - Laboratory Result Diagrams: 11/27/18 19:08 11/27/18 19:08 <FOX STALLWORTH - Last Filed: 11/28/18 06:55> - Re-evaluation Re-evalutation: 11/27/18 20:50 CBC shows chronic anemia with a hemoglobin of 11.3. CMP shows minimally decreased sodium at 136.9, a week ago was 137.6. Lipase is normal. Patient is actually quite well-appearing. I agree with patient that his vomiting and diarrhea caused him inability to tolerate his oral narcotics and is likely in a small amount of necrotic iliac withdrawal which is causing worsening vomiting and diarrhea. It is benign, there is no leukocytosis. Patient was given a dose of Dilaudid IM as well as some Zofran to control his narcotic withdrawal as he is on chronic narcotics for pain medication which he still has at home. Patient is now feeling much better, is ready to go home and will be discharged with a prescription for Zofran. (FOX STALLWORTH) - Vital Signs Vital signs: Temp Pulse Resp BP Pulse Ox 98.1 F 80 16 140/68 H 99 11/27/18 20:57 11/27/18 20:57 11/27/18 20:57 11/27/18 20:57 11/27/18 20:57 - Laboratory Laboratory results interpreted by me: 11/27/18 11/27/18 19:08 19:08 Hgb 11.3 L Hct 35.5 L MCV 72 L MCH 22.9 L MCHC 31.9 L RDW 19.2 H Sodium 136.9 L Total Protein 5.8 L Discharge <DORA WEINSTEIN - Last Filed: 11/27/18 22:43> <FOX STALLWORTH - Last Filed: 11/28/18 06:55> - Discharge Clinical Impression: Nausea vomiting and diarrhea, Narcotic withdrawal Condition: Stable Disposition: HOME, SELF-CARE Additional Instructions: I suspect your vomiting and diarrhea is likely coming from the fact that you have not been able to keep down your chronic narcotics, you appear to be in a small amount of narcotic withdrawal. Now that we have stopped your vomiting you should be able to tolerate your narcotics which should improve your symptoms. If your symptoms worsen, if you develop fevers, if you develop abdominal pain or any new or concerning symptoms please return to the emergency department immediately. Prescriptions: Ondansetron [Zofran Odt 4 mg Tablet] 1 - 2 tab PO Q4H PRN #15 tab.rapdis PRN Reason: For Nausea/Vomiting Scribe Attestation: 11/28/18 06:55 I personally performed the services described in the documentation, reviewed and edited the documentation which was dictated to the scribe in my presence, and it accurately records my words and actions. (FOX STALLWORTH) Scribe Documentation - Scribe Written by Aparnae:: Damari Potter, 11/27/2018 20:27 acting as scribe for :: Isamar <DORA WEINSTEIN - Last Filed: 11/27/18 22:43>
[2018-11-27 20:58] VITALS: BP 140/68
== END 2018-11-27 20:58 | disposition home or self-care (01) ==
LOC: ER 15:40
DX: R11.2 Nausea with vomiting, unspecified (principal); R19.7 Diarrhea, unspecified; F19.939 Other psychoactive substance use, unspecified with withdrawal, unspecified; R10.9 Unspecified abdominal pain; R10.817 Generalized abdominal tenderness; R68.83 Chills (without fever); D64.9 Anemia, unspecified; L53.9 Erythematous condition, unspecified; L92.9 Granulomatous disorder of the skin and subcutaneous tissue, unspecified; G89.29 Other chronic pain; Z87.442 Personal history of urinary calculi; Z90.49 Acquired absence of other specified parts of digestive tract
CPT/HCPCS: 99284; 96372; 36415; 83690; 85025; 80053; A9270; J1170; J2405

== ENCOUNTER 2018-12-21 20:31 | Emergency (ER) | payer MEDICARE ==
[2018-12-21] MEDS ORDERED: BUPRENORPHINE HCL 2 MG SUBLINGUAL TABLET SL ONE (21:51)
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
[2018-12-21 22:08] VITALS: BP 142/77
== END 2018-12-21 22:11 | disposition home or self-care (01) ==
LOC: ER 20:31
DX: F11.23 Opioid dependence with withdrawal (principal); G89.29 Other chronic pain; Z90.49 Acquired absence of other specified parts of digestive tract; Z87.442 Personal history of urinary calculi
CPT/HCPCS: 99283; A9270; J0571

== ENCOUNTER 2018-12-26 16:46 | Emergency (ER) | payer MEDICARE ==
[2018-12-26 16:56] VITALS: BP 134/78
--- NOTE | 2018-12-26 17:54 | ER Document Report ---
ED Medical Screen (RME) - General Chief Complaint: Abdominal Pain Stated Complaint: URINARY ISSUE Time Seen by Provider: 12/26/18 17:50 Notes: 48 years old male with multiple visit to the ED, chronic pain syndrome, under the care of pain clinic, discharged from the clinic behavior, violent behavior in the past in the ED, presents today with complaining of urethral pain and possible UTI. He has a Vo catheter in place. TRAVEL OUTSIDE OF THE [place] IN LAST 30 DAYS: No - Related Data Allergies/Adverse Reactions: No Known Allergies Allergy (Verified 12/26/18 16:46) Past Medical History - Social History Family history: Reviewed & Not Pertinent Renal/ Medical History: Reports: Hx Kidney Stones. Denies: Hx Peritoneal Dialysis Psychiatric Medical History: Reports: Hx Bipolar Disorder, Hx Borderline Personality Disorder, Hx Depression Past Surgical History: Reports: Hx Cholecystectomy, Hx Genitourinary Surgery - Suprapubic catheter - Immunizations Immunizations up to date: Yes Physical Exam - Vital signs Vitals: Temp Pulse Resp BP Pulse Ox 98.5 F 112 H 18 134/78 H 98 12/26/18 16:52 12/26/18 16:52 12/26/18 16:52 12/26/18 16:52 12/26/18 16:52 Course - Vital Signs Vital signs: Temp Pulse Resp BP Pulse Ox 98.5 F 112 H 18 134/78 H 98 12/26/18 16:52 12/26/18 16:52 12/26/18 16:52 12/26/18 16:52 12/26/18 16:52
[2018-12-26 18:55] LABS: ABSOLUTE BASOPHILS # (AUTO) 0.1 10^3/uL (0.0-0.2); ABSOLUTE EOSINOPHILS # (AUTO) 0.3 10^3/uL (0.0-0.6); ABSOLUTE LYMPHOCYTES (AUTO) 1.6 10^3/uL (0.5-4.7); ABSOLUTE MONOCYTES (AUTO) 0.9 10^3/uL (0.1-1.4); EOSINOPHILS % (AUTO) 2.7 % (0-6); HEMATOCRIT 38.9 % (37.9-51.0); HEMOGLOBIN 12.3 g/dL (13.5-17.0); LYMPHOCYTES % (AUTO) 16.2 % (13-45); MEAN CORPUSCULAR HEMOGLOBIN 23.5 pg (27.0-33.4); MEAN CORPUSCULAR HGB CONC 31.7 g/dL (32.0-36.0); MEAN CORPUSCULAR VOLUME 74 fl (80-97); MONOCYTES % (AUTO) 8.7 % (3-13); PLATELET COUNT 300 10^3/uL (150-450); RED BLOOD COUNT 5.24 10^6/uL (4.35-5.55); SEGMENTED NEUTROPHILS % (AUTO) 71.4 % (42-78); TOTAL CELLS COUNTED % (AUTO) 100 %; WHITE BLOOD COUNT 9.8 10^3/uL (4.0-10.5)
[2018-12-26 19:15] LABS: ALANINE AMINOTRANSFERASE 30 U/L (21-72); ALBUMIN 3.8 g/dL (3.5-5.0); ALKALINE PHOSPHATASE 68 U/L (38-126); ANION GAP 9 (5-19); ASPARTATE AMINO TRANSFERASE 29 U/L (17-59); BILIRUBIN,DIRECT 0.3 mg/dL (0.0-0.4); BILIRUBIN,TOTAL 0.5 mg/dL (0.2-1.3); BLOOD UREA NITROGEN 14 mg/dL (7-20); CALCIUM 9.1 mg/dL (8.4-10.2); CARBON DIOXIDE 27 mmol/L (22-30); CHLORIDE 104 mmol/L (98-107); GLUCOSE 85 mg/dL (75-110); POTASSIUM 4.3 mmol/L (3.6-5.0); SODIUM 140.2 mmol/L (137-145); TOTAL PROTEIN 6.2 g/dL (6.3-8.2)
[2018-12-26 19:23] LABS: AMORPHOUS SEDIMENT,URINE TRACE /HPF; APPEARANCE,URINE TURBID; BILIRUBIN,URINE NEGATIVE (NEGATIVE); GLUCOSE, URINE >=500 mg/dL (NEGATIVE); KETONES,URINE TRACE mg/dL (NEGATIVE); LEUKOCYTE ESTERASE,URINE LARGE (NEGATIVE); NITRITE,URINE NEGATIVE (NEGATIVE); PROTEIN,URINE 100 mg/dL (NEGATIVE); URINE SPECIFIC GRAVITY 1.023
[2018-12-26 19:24] LABS: COLOR,URINE YELLOW
[2018-12-26] MEDS ORDERED: CEPHALEXIN 500 MG CAPSULE PO ONE (19:35)
[2018-12-26] MEDS ORDERED: MELOXICAM 15 MG TABLET PO ONE (19:41)
[2018-12-26] MEDS ORDERED: ONDANSETRON 4 MG TAB.RAPDIS PO ONE (19:41)
--- NOTE | 2018-12-26 19:41 | ER Document Report ---
ED General - General Chief Complaint: Abdominal Pain Stated Complaint: URINARY ISSUE Time Seen by Provider: 12/26/18 17:50 Notes: Patient is a 48-year-old male well-known to me, history of transverse myelitis with resulting need for suprapubic catheter chronically, presents today complaining of concern of catheter associated infection. It does take quite some time to establish what brings the patient to the emergency department as he spends the first several minutes talking extensively about how his chronic pain management doctor "better not hope I ever see her on the street" after he was discharged "banned" from the clinic. He does eventually relate to me that he believes he has a catheter associated infection. States the urine has a foul odor to it and that he needs a catheter change. He also notes a mild, throbbing, aching suprapubic abdominal pain similar to when he had infections in the past. No flank pain, nausea, vomiting fever or constitutional symptoms. Nothing seems to improve or worsen his symptoms. TRAVEL OUTSIDE OF THE [place] IN LAST 30 DAYS: No - Related Data Allergies/Adverse Reactions: No Known Allergies Allergy (Verified 12/26/18 16:46) Past Medical History - General Information source: Patient - Social History Smoking Status: Never Smoker Chew tobacco use (# tins/day): No Frequency of alcohol use: None Drug Abuse: None Lives with: Alone Family History: Reviewed & Not Pertinent, Hypertension Patient has suicidal ideation: No Patient has homicidal ideation: No Renal/ Medical History: Reports: Hx Kidney Stones. Denies: Hx Peritoneal Dialysis Psychiatric Medical History: Reports: Hx Bipolar Disorder, Hx Borderline Personality Disorder, Hx Depression Past Surgical History: Reports: Hx Cholecystectomy, Hx Genitourinary Surgery - Suprapubic catheter - Immunizations Immunizations up to date: Yes Review of Systems - Review of Systems Notes: Constitutional: Negative for fever. HENT: Negative for sore throat. Eyes: Negative for visual changes. Cardiovascular: Negative for chest pain. Respiratory: Negative for shortness of breath. Gastrointestinal: Positive for suprapubic abdominal pain Genitourinary: Positive for dysuria. Musculoskeletal: Negative for back pain. Skin: Negative for rash. Neurological: Negative for headaches, weakness or numbness. 10 point ROS negative except as marked above and in HPI. Physical Exam - Vital signs Vitals: Temp Pulse Resp BP Pulse Ox 98.5 F 112 H 18 134/78 H 98 12/26/18 16:52 12/26/18 16:52 12/26/18 16:52 12/26/18 16:52 12/26/18 16:52 Interpretation: Tachycardic - Resolved at the time of my assessment with a heart rate of 93 Notes: PHYSICAL EXAMINATION: GENERAL: Somewhat disheveled, in no acute distress HEAD: Atraumatic, normocephalic. EYES: Pupils equal round and reactive to light, extraocular movements intact, sclera anicteric, conjunctiva are normal. ENT: nares patent, oropharynx clear without exudates. Moist mucous membranes. NECK: Normal range of motion, supple without lymphadenopathy LUNGS: Breath sounds clear to auscultation bilaterally and equal. No wheezes rales or rhonchi. HEART: Regular rate and rhythm without murmurs ABDOMEN: Soft, nontender, normoactive bowel sounds. No guarding, no rebound. No masses appreciated. EXTREMITIES: Normal range of motion, no pitting or edema. No cyanosis. NEUROLOGICAL: No focal neurological deficits. Moves all extremities spontaneously and on command. PSYCH: Normal mood, normal affect. SKIN: Warm, Dry, normal turgor, suprapubic catheter in place without surrounding induration or erythema Course - Re-evaluation Re-evalutation: 12/26/18 19:42 Presentation of a patient well-known to me with concerns of a catheter associated urinary tract infection. Urinalysis is consistent with this diagnosis. Catheter change that has been performed. Abdominal exam completely benign without areas of focal tenderness, rebound or guarding. Patient states is identical to when he has had catheter associated infections in the past. Vitals on initial triage show mild tachycardia which is resolved at the time of my evaluation. Patient states he is going through ongoing opiate withdrawals for which I saw him several days ago. I have advised that we will not prescribe opiates to him nor provide him here in the emergency department. Labs otherwise unremarkable. Patient has been started on cephalexin for treatment of his urinary tract infection. At this time will discharge with return precautions and follow-up recommendations. Verbal discharge instructions given a the bedside and opportunity for questions given. Medication warnings reviewed. Patient is in agreement with this plan and has verbalized understanding of return precautions and the need for primary care follow-up in the next 24-72 hours. - Vital Signs Vital signs: Temp Pulse Resp BP Pulse Ox 98.5 F 112 H 18 134/78 H 98 12/26/18 16:52 12/26/18 16:52 12/26/18 16:52 12/26/18 16:52 12/26/18 16:52 - Laboratory Result Diagrams: 12/26/18 18:43 12/26/18 18:43 Laboratory results interpreted by me: 12/26/18 12/26/18 12/26/18 18:43 18:43 18:43 Hgb 12.3 L MCV 74 L MCH 23.5 L MCHC 31.7 L RDW 22.0 H Total Protein 6.2 L Urine Protein 100 H Urine Glucose (UA) >=500 H Urine Ketones TRACE H Urine Blood MODERATE H Urine Urobilinogen 4.0 H Ur Leukocyte Esterase LARGE H Discharge - Discharge Clinical Impression: Opiate withdrawal, Pyelonephritis Catheter-associated urinary tract infection Qualifiers: Indwelling urinary catheter type: cystostomy catheter Encounter type: initial encounter Qualified Code(s): T83.510A - Infection and inflammatory reaction due to cystostomy catheter, initial encounter Condition: Good Disposition: HOME, SELF-CARE Additional Instructions: Your urine shows findings consistent with a urinary tract infection likely associated with your suprapubic catheter. Please take all the antibiotics as directed even if your symptoms have improved. Please follow-up with your primary care physician in the next 1-2 days. Return to emergency room if you develop fever >101F, persistent vomiting, become lethargic, have severe pain in your sides, or any other symptoms that are concerning to you. Prescriptions: Cephalexin Monohydrate [Keflex 500 mg Capsule] 500 mg PO Q6H 7 Days capsule
== END 2018-12-26 21:31 | disposition home or self-care (01) ==
LOC: ER 16:46
DX: T83.510A Infection and inflammatory reaction due to cystostomy catheter, initial encounter (principal); N12 Tubulo-interstitial nephritis, not specified as acute or chronic; Y84.6 Urinary catheterization as the cause of abnormal reaction of the patient, or of later complication, without mention of misadventure at the time of the procedure; F11.23 Opioid dependence with withdrawal; G89.29 Other chronic pain; Z87.442 Personal history of urinary calculi; Z90.49 Acquired absence of other specified parts of digestive tract
CPT/HCPCS: 99283; 36415; 87086; 85025; 87088; 80053; 81001; 87186; A9270 ×3; S0119

== ENCOUNTER 2019-01-04 18:10 | Emergency (ER) | payer MEDICARE ==
[2019-01-04] MEDS ORDERED: NORMAL SALINE 1000 ML 1,000 ML IV ONE (18:56)
[2019-01-04] MEDS ORDERED: ONDANSETRON HCL INJ/PF 4 MG/2 ML SDV IV ONE (18:56)
[2019-01-04] MEDS ORDERED: MORPHINE SULFATE 10 MG/ML INJ IV ONE (18:56)
--- NOTE | 2019-01-04 18:56 | ER Document Report ---
ED Medical Screen (RME) - General Chief Complaint: Abdominal Pain Stated Complaint: ABDOMINAL PAIN Time Seen by Provider: 01/04/19 18:43 Primary Care Provider: RITIKA LOW MD [Primary Care Provider] - Follow up as needed Notes: Patient is a 48-year-old male that presents to the emergency department for chief complaint of abdominal pain. Patient reports having colonoscopy yesterday, and since that time is had some nausea and vomiting, and abdominal cramping and distention that is concerning for him. ROS: Other than noted above, the 12 point review of systems was reviewed with the patient and were negative, all pertinent findings are included in the HPI. PHYSICAL EXAMINATION: Vital signs reviewed. GENERAL: Well-appearing, well-nourished and in no acute distress. HEAD: Atraumatic, normocephalic. EYES: Pupils equal round extraocular movements intact, conjunctiva are normal. ENT: Nares patent NECK: Normal range of motion CV: Heart regular rate and rhythm LUNGS: No respiratory distress Abdomen: Obese, mild distention, but not rigid. Not particularly tender with palpation Musculoskeletal: Normal range of motion NEUROLOGICAL: Normal speech PSYCH: Normal mood, normal affect. MDM: Patient seen and examined for rapid initial assessment. Vital signs reviewed. A comprehensive ED assessment and evaluation of the patient, analysis of test results and completion of the medical decision making process will be conducted by additional ED providers. *Note is created using voice recognition software and may contain spelling, syntax or grammatical errors. TRAVEL OUTSIDE OF THE [place] IN LAST 30 DAYS: No - Related Data Allergies/Adverse Reactions: No Known Allergies Allergy (Verified 01/04/19 18:13) Past Medical History - Social History Family history: Reviewed & Not Pertinent Renal/ Medical History: Reports: Hx Kidney Stones. Denies: Hx Peritoneal Dialysis Psychiatric Medical History: Reports: Hx Bipolar Disorder, Hx Borderline Personality Disorder, Hx Depression Past Surgical History: Reports: Hx Cholecystectomy, Hx Genitourinary Surgery - Suprapubic catheter - Immunizations Immunizations up to date: Yes Physical Exam - Vital signs Vitals: Temp Pulse Resp BP Pulse Ox 98.8 F 98 18 140/65 H 98 01/04/19 18:41 01/04/19 18:41 01/04/19 18:41 01/04/19 18:41 01/04/19 18:41 Course - Vital Signs Vital signs: Temp Pulse Resp BP Pulse Ox 98.8 F 98 18 140/65 H 98 01/04/19 18:41 01/04/19 18:41 01/04/19 18:41 01/04/19 18:41 01/04/19 18:41 Doctor's Discharge - Discharge Referrals: RITIKA LOW MD [Primary Care Provider] - Follow up as needed
--- NOTE | 2019-01-04 19:25 | RADIOLOGY REPORT (SQ) ---
EXAM DESCRIPTION: ABDOMEN 2 VIEWS COMPLETED DATE/TIME: 01/04/2019 7:13 pm REASON FOR STUDY: abdominal pain, distention, recent colonoscopy COMPARISON: 11/20/2018 and earlier NUMBER OF VIEWS: Two views. TECHNIQUE: Supine and upright radiographic images of the abdomen acquired. LIMITATIONS: None. FINDINGS: FREE AIR: None. No abnormal gas collections. LUNG BASES: Clear. BOWEL GAS PATTERN: Nonobstructive pattern. No dilated loops or air fluid levels. CALCIFICATIONS: No suspicious calcifications. SOFT TISSUES: No gross mass or suggestion of organomegaly. HARDWARE: Metallic clips in the right upper quadrant of the abdomen. Multiple radiopaque coils withi n the left hemiabdomen. A catheter tip terminates over the mid pelvis. BONES: No acute fracture. No worrisome bone lesions. OTHER: No other significant finding. IMPRESSION: NO RADIOGRAPHIC EVIDENCE FOR ACUTE ABDOMINAL DISEASE. TECHNICAL DOCUMENTATION: JOB ID: [id number] [employer]- All Rights Reserved Reading location - IP/workstation name: [email or web address]
[2019-01-04 20:05] LABS: ABSOLUTE BASOPHILS # (AUTO) 0.1 10^3/uL (0.0-0.2); ABSOLUTE EOSINOPHILS # (AUTO) 0.4 10^3/uL (0.0-0.6); ABSOLUTE LYMPHOCYTES (AUTO) 2.2 10^3/uL (0.5-4.7); ABSOLUTE MONOCYTES (AUTO) 0.9 10^3/uL (0.1-1.4); ABSOLUTE NEUT (AUTO) 6.1 10^3/uL (1.7-8.2); BASOPHILS % (AUTO) 1.5 % (0-2); EOSINOPHILS % (AUTO) 3.7 % (0-6); HEMATOCRIT 40.1 % (37.9-51.0); HEMOGLOBIN 12.9 g/dL (13.5-17.0); MEAN CORPUSCULAR HEMOGLOBIN 23.7 pg (27.0-33.4); MEAN CORPUSCULAR HGB CONC 32.2 g/dL (32.0-36.0); MEAN CORPUSCULAR VOLUME 74 fl (80-97); MONOCYTES % (AUTO) 9.4 % (3-13); PLATELET COUNT 342 10^3/uL (150-450); RED BLOOD COUNT 5.45 10^6/uL (4.35-5.55); RED CELL DISTRIBUTION WIDTH 21.9 % (11.5-14.0); SEGMENTED NEUTROPHILS % (AUTO) 62.4 % (42-78); TOTAL CELLS COUNTED % (AUTO) 100 %; WHITE BLOOD COUNT 9.8 10^3/uL (4.0-10.5)
[2019-01-04 20:23] LABS: ALANINE AMINOTRANSFERASE 31 U/L (21-72); ALBUMIN 4.1 g/dL (3.5-5.0); ALKALINE PHOSPHATASE 73 U/L (38-126); ANION GAP 8 (5-19); ASPARTATE AMINO TRANSFERASE 26 U/L (17-59); BILIRUBIN,DIRECT 0.2 mg/dL (0.0-0.4); BILIRUBIN,TOTAL 0.3 mg/dL (0.2-1.3); BLOOD UREA NITROGEN 7 mg/dL (7-20); CALCIUM 9.3 mg/dL (8.4-10.2); CARBON DIOXIDE 27 mmol/L (22-30); CHLORIDE 105 mmol/L (98-107); GLUCOSE 79 mg/dL (75-110); LIPASE 237.5 U/L (23-300); POTASSIUM 4.5 mmol/L (3.6-5.0); SODIUM 140.1 mmol/L (137-145); TOTAL PROTEIN 6.2 g/dL (6.3-8.2)
[2019-01-04] MEDS ORDERED: BACLOFEN 10 MG TABLET PO ONE (21:50)
--- NOTE | 2019-01-04 21:53 | ER Document Report ---
ED General - General Chief Complaint: Abdominal Pain Stated Complaint: ABDOMINAL PAIN Time Seen by Provider: 01/04/19 18:43 Primary Care Provider: RITIKA LOW MD [Primary Care Provider] - Follow up as needed Notes: Patient is a 48-year-old male past medical history of transverse myelitis, frequent visits to the emergency department, presents complaining of abdominal cramping for the past 24 hours. Patient had a colonoscopy done yesterday, states that immediately upon discharge from the colonoscopy he went [employer], states he only finished half of the plate but began to feel bloated and uncomfortable. He then went to a pizza parlor and ate pizza which he states only worsened his symptoms. Patient states that he is concerned that something bad is happening after the colonoscopy, was instructed to come to the emergency department by his GI physician. He denies any distinct areas of focal abdominal pain. Nothing seems to improve or worsen his pain. Has been nauseated but not had vomiting. No fever or constitutional symptoms. TRAVEL OUTSIDE OF THE [place] IN LAST 30 DAYS: No - Related Data Allergies/Adverse Reactions: No Known Allergies Allergy (Verified 01/04/19 18:13) Past Medical History - General Information source: Patient - Social History Smoking Status: Never Smoker Chew tobacco use (# tins/day): No Frequency of alcohol use: None Drug Abuse: None Lives with: Alone Family History: Reviewed & Not Pertinent, Hypertension Patient has suicidal ideation: No Patient has homicidal ideation: No Renal/ Medical History: Reports: Hx Kidney Stones. Denies: Hx Peritoneal Dialysis Psychiatric Medical History: Reports: Hx Bipolar Disorder, Hx Borderline Personality Disorder, Hx Depression Past Surgical History: Reports: Hx Cholecystectomy, Hx Genitourinary Surgery - Suprapubic catheter - Immunizations Immunizations up to date: Yes Review of Systems - Review of Systems Notes: Constitutional: Negative for fever. HENT: Negative for sore throat. Eyes: Negative for visual changes. Cardiovascular: Negative for chest pain. Respiratory: Negative for shortness of breath. Gastrointestinal: Positive for abdominal pain and nausea Genitourinary: Negative for dysuria. Musculoskeletal: Negative for back pain. Skin: Negative for rash. Neurological: Negative for headaches, weakness or numbness. 10 point ROS negative except as marked above and in HPI. Physical Exam - Vital signs Vitals: Temp Pulse Resp BP Pulse Ox 98.8 F 98 18 140/65 H 98 01/04/19 18:41 01/04/19 18:41 01/04/19 18:41 01/04/19 18:41 01/04/19 18:41 Interpretation: Normal Notes: PHYSICAL EXAMINATION: GENERAL: Well-appearing, well-nourished and in no acute distress. HEAD: Atraumatic, normocephalic. EYES: Pupils equal round and reactive to light, extraocular movements intact, sclera anicteric, conjunctiva are normal. ENT: nares patent, oropharynx clear without exudates. Moist mucous membranes. NECK: Normal range of motion, supple without lymphadenopathy LUNGS: Breath sounds clear to auscultation bilaterally and equal. No wheezes rales or rhonchi. HEART: Regular rate and rhythm without murmurs ABDOMEN: Soft, nontender, normoactive bowel sounds. No guarding, no rebound. No masses appreciated. EXTREMITIES: Normal range of motion, no pitting or edema. No cyanosis. NEUROLOGICAL: No focal neurological deficits. Moves all extremities sp ontaneously and on command. PSYCH: Normal mood, normal affect. SKIN: Warm, Dry, normal turgor, no rashes or lesions noted. Course - Re-evaluation Re-evalutation: 01/04/19 21:52 Patient presents with abdominal cramping, bloating, 2 days after having a colonoscopy. Patient did advance his diet quite rapidly, was eating [employer] and a pizza joint several hours after having his colonoscopy. Anticipate that much of his bloating is secondary to the rapidity with which he advance his diet and have advised him to proceed a bland diet. His labs are at baseline. Two-view x-ray without evidence of perforation. Patient actually denies any abdominal pain sitting is more a sensation of bloating and cramping. No focal abdominal tenderness to palpation. Do not clinically suspect any acute life-threatening intra-abdominal pathology. At this time will discharge with return precautions and follow-up recommendations. Verbal discharge instructions given a the bedside and opportunity for questions given. Medication warnings reviewed. Patient is in agreement with this plan and has verbalized understanding of return precautions and the need for primary care follow-up in the next 24-72 hours. - Vital Signs Vital signs: Temp Pulse Resp BP Pulse Ox 97.6 F 79 13 153/84 H 100 01/04/19 22:10 01/04/19 22:10 01/04/19 22:10 01/04/19 22:10 01/04/19 22:10 - Laboratory Result Diagrams: 01/04/19 19:50 01/04/19 19:50 Laboratory results interpreted by me: 01/04/19 01/04/19 19:50 19:50 Hgb 12.9 L MCV 74 L MCH 23.7 L RDW 21.9 H Total Protein 6.2 L - Diagnostic Test Radiology reviewed: Image reviewed, Reports reviewed Radiology results interpreted by me: 01/04/19 21:52 Abdominal two-view x-ray: No evidence of perforation Discharge - Discharge Clinical Impression: Abdominal bloating with cramps, Nausea Condition: Stable Disposition: HOME, SELF-CARE Additional Instructions: Please keep your diet very bland as we discussed. Focus on foods such as plain pasta, plain bread, plain white rice, crackers, soups and broth until your normal appetite returns and you no longer have abdominal cramping. Your labs and x-ray are normal. Return if you develop fever greater than 100.4 F, worsening abdominal discomfort, develop persistent vomiting, or have any other symptoms that are worrisome to you. Referrals: RITIKA LOW MD [Primary Care Provider] - Follow up as needed
[2019-01-04 22:14] VITALS: BP 153/84
== END 2019-01-04 22:25 | disposition home or self-care (01) ==
LOC: ER 18:10
DX: R10.9 Unspecified abdominal pain (principal); R14.0 Abdominal distension (gaseous); R11.0 Nausea; Z98.890 Other specified postprocedural states; Z87.442 Personal history of urinary calculi; Z90.49 Acquired absence of other specified parts of digestive tract
CPT/HCPCS: 99284; 96374; 96375; 36415; 83690; 85025; 80053; 74019; A9270; J2270; J2405; J7030

== ENCOUNTER → 2019-01-10 | Outpatient (CLI) | payer MEDICARE ==
--- NOTE | 2019-01-10 13:07 | RADIOLOGY REPORT (SQ) ---
EXAM DESCRIPTION: BARIUM ENEMA W/AIR COMPLETED DATE/TIME: 01/10/2019 11:19 am REASON FOR STUDY: CHANGE IN BOWEL HABIT (R19.4) R19.4 CHANGE IN BOWEL HABIT COMPARISON: CT abdomen pelvis 08/27/2018 Abdominal films 11/09/2018, 11/20/2018, 01/04/2019 FLUOROSCOPY TIME: 9.9 minutes 10 fluoroscopic images saved to PACS. TECHNIQUE: Following retrograde filling of the colon with barium and air, fluoroscopic spot and over head imaging of the colon was obtained and saved to PACS. LIMITATIONS: None. FINDINGS: DATA ENTRY COORDINATOR KUB: There are surgical clips in the left upper quadrant and left mid abdomen likely post gastric bypass. Clips right upper quadrant post cholecystectomy. Vo catheter in the bladde r. Scattered air throughout the gastrointestinal tract post attempted colonoscopy Balloon tip catheter was placed per rectum, and gentle gravity drip infusion of barium was performed into the colon. Spot fluoroscopic images of the rectum and distal sigmoid colon during filling with barium are unrema rkable. We were unable to adequately reflux contrast more proximally to demonstrate the remainder of the colo n. IMPRESSION: Nondiagnostic study COMMENT: Quality ID 145: Final reports for procedures using fluoroscopy that document radiation exp osure indices, or exposure time and number of fluorographic images (if radiation exposure indices are not available) TECHNICAL DOCUMENTATION: JOB ID: [id number] [employer]- All Rights Reserved Reading location - IP/workstation name: [email or web address]
== END ==
LOC: RAD 09:35
PROVIDERS: ATTEND Internal Medicine Gastroenterology
DX: R19.4 Change in bowel habit (principal)
CPT/HCPCS: 74280

== ENCOUNTER 2019-01-15 15:25 | Emergency (ER) | payer MEDICARE ==
--- NOTE | 2019-01-15 16:43 | ER Document Report ---
ED Medical Screen (RME) - General Chief Complaint: Nausea/Vomiting/Diarrhea Stated Complaint: NAUSEA Time Seen by Provider: 01/15/19 16:36 Primary Care Provider: RITIKA LOW MD [Primary Care Provider] - Follow up as needed Notes: 48-year-old male with history of transverse myelitis, suprapubic catheter, presents today for nausea, vomiting and generally not feeling well, abdominal pain, urinating into a diaper instead of drainage into his suprapubic catheter I have greeted and performed a rapid initial assessment of this patient. A comprehensive ED assessment and evaluation of the patient, analysis of test re sults and completion of the medical decision making process will be conducted by additional ED providers. TRAVEL OUTSIDE OF THE [place] IN LAST 30 DAYS: No - Related Data Allergies/Adverse Reactions: No Known Allergies Allergy (Verified 01/04/19 18:13) Past Medical History - Social History Family history: Reviewed & Not Pertinent Renal/ Medical History: Reports: Hx Kidney Stones. Denies: Hx Peritoneal Dialysis Psychiatric Medical History: Reports: Hx Bipolar Disorder, Hx Borderline Personality Disorder, Hx Depression Past Surgical History: Reports: Hx Cholecystectomy, Hx Genitourinary Surgery - Suprapubic catheter - Immunizations Immunizations up to date: Yes Physical Exam - Vital signs Vitals: Temp Pulse Resp BP Pulse Ox 99.0 F 92 16 148/75 H 100 01/15/19 15:31 01/15/19 15:31 01/15/19 15:31 01/15/19 15:31 01/15/19 15:31 Course - Vital Signs Vital signs: Temp Pulse Resp BP Pulse Ox 99.0 F 92 16 148/75 H 100 01/15/19 15:31 01/15/19 15:31 01/15/19 15:31 01/15/19 15:31 01/15/19 15:31 Doctor's Discharge - Discharge Referrals: RITIKA LOW MD [Primary Care Provider] - Follow up as needed
[2019-01-15 17:20] LABS: ABSOLUTE BASOPHILS # (AUTO) 0.1 10^3/uL (0.0-0.2); ABSOLUTE EOSINOPHILS # (AUTO) 0.3 10^3/uL (0.0-0.6); ABSOLUTE LYMPHOCYTES (AUTO) 1.5 10^3/uL (0.5-4.7); ABSOLUTE MONOCYTES (AUTO) 0.8 10^3/uL (0.1-1.4); BASOPHILS % (AUTO) 1.5 % (0-2); HEMATOCRIT 37.4 % (37.9-51.0); HEMOGLOBIN 12.1 g/dL (13.5-17.0); LYMPHOCYTES % (AUTO) 17.3 % (13-45); MEAN CORPUSCULAR HGB CONC 32.4 g/dL (32.0-36.0); MEAN CORPUSCULAR VOLUME 74 fl (80-97); MONOCYTES % (AUTO) 8.9 % (3-13); PLATELET COUNT 356 10^3/uL (150-450); RED BLOOD COUNT 5.05 10^6/uL (4.35-5.55); RED CELL DISTRIBUTION WIDTH 21.1 % (11.5-14.0); SEGMENTED NEUTROPHILS % (AUTO) 69.3 % (42-78); TOTAL CELLS COUNTED % (AUTO) 100 %; WHITE BLOOD COUNT 8.6 10^3/uL (4.0-10.5)
[2019-01-15 17:38] LABS: ALANINE AMINOTRANSFERASE 32 U/L (21-72); ALBUMIN 4.1 g/dL (3.5-5.0); ALKALINE PHOSPHATASE 71 U/L (38-126); ANION GAP 8 (5-19); ASPARTATE AMINO TRANSFERASE 24 U/L (17-59); BILIRUBIN,DIRECT 0.3 mg/dL (0.0-0.4); BILIRUBIN,TOTAL 0.4 mg/dL (0.2-1.3); BLOOD UREA NITROGEN 11 mg/dL (7-20); CALCIUM 9.2 mg/dL (8.4-10.2); CARBON DIOXIDE 27 mmol/L (22-30); CHLORIDE 104 mmol/L (98-107); GLUCOSE 107 mg/dL (75-110); LIPASE 388.6 U/L (23-300); POTASSIUM 4.4 mmol/L (3.6-5.0); SODIUM 138.6 mmol/L (137-145); TOTAL PROTEIN 6.3 g/dL (6.3-8.2)
--- NOTE | 2019-01-15 19:56 | ER Document Report ---
ED GI/ - General Chief Complaint: Nausea/Vomiting/Diarrhea Stated Complaint: NAUSEA Time Seen by Provider: 01/15/19 19:53 Primary Care Provider: RITIKA LOW MD [Primary Care Provider] - Follow up as needed Mode of Arrival: Ambulatory Information source: Patient Notes: HISTORY OF PRESENT ILLNESS: Patient is a 48-year-old male with a past medical history of transverse myelitis with resulting neurogenic bladder status post chronic suprapubic catheter placement who presents with lower abdominal pain. Location: Suprapubic area Onset: 2 days ago Alleviation: None Provocation: Movement Quality: Burning Radiation: None Severity: Mild to moderate Timing: Constant History of abdominal surgery: Yes Associated symptoms: No fevers or chills, no hematuria or pyuria Last bowel movement: Today and normal REVIEW OF SYSTEMS: CONSTITUTIONAL : Denies fever or chills, no sweats. Denies recent illness. EENT: Denies eye, ear, throat, or mouth pain or symptoms. Denies nasal or sinus congestion. CARDIOVASCULAR: Denies chest pain. Denies swelling of the legs. RESPIRATORY: Denies cough, cold, or chest congestion. Denies shortness of breath or difficulty breathing. Denies wheezing. GASTROINTESTINAL: Positive for abdominal pain. Denies nausea, vomiting, or new rrhea. Denies constipation. GENITOURINARY: Denies difficulty urinating, painful urination, burning, frequency, or blood in urine. MUSCULOSKELETAL: Denies neck or back pain or joint pain or swelling. SKIN: Denies rash or skin lesions. HEMATOLOGIC : Denies easy bruising or bleeding. LYMPHATIC: Denies swollen, enlarged glands. NEUROLOGICAL: Denies altered mental status or loss of consciousness. Denies headache. Denies weakness or paralysis or loss of use of either side. Denies problems with gait or speech. Denies sensory or motor loss. PSYCHIATRIC: Denies anxiety or stress or depression. All other systems reviewed and negative. PHYSICAL EXAMINATION: GENERAL: Well-appearing, well-nourished and in no acute distress. HEAD: Atraumatic, normocephalic. No scalp deformity, depression, or crepitance. EYES: Pupils are 3 mm and equal/round/reactive to light, extraocular movements i ntact, sclera anicteric, conjunctiva are normal. ENT: Nares patent bilaterally, oropharynx. Moist mucous membranes. No tonsil hypertrophy. NECK: Normal range of motion, supple without lymphadenopathy. LUNGS: Breath sounds present, equal, and clear to auscultation bilaterally. No wheezes, rales, or rhonchi. HEART: Regular rate and rhythm without murmurs, rubs, or gallops. 2+ peripheral pulses. Normal capillary refill. ABDOMEN: Soft, nondistended. Suprapubic catheter in place in the right lower pelvis, mild to moderate suprapubic tenderness, no drainage or purulent discharge from around the ostomy. Normoactive bowel sounds. No guarding, no rebound. No masses appreciated. BACK: Normal contour, no midline tenderness. Rectal exam deferred. GENITAL/PELVIC: Deferred. EXTREMITIES: Normal range of motion, no pitting or edema. No cyanosis. NEUROLOGICAL: No focal neurological deficits. Moves all extremities spontaneously and on command. PSYCH: Normal mood, normal affect. No suicidal thoughts/ideations. No homocidal thoughts/ideations. No hallucinations. SKIN: Warm, dry, normal turgor, no rashes or lesions noted. ASSESSMENT AND PLAN: This patient is a 48-year-old male who presents with abdomen and pelvis pain secondary to possible UTI from his chronic suprapubic catheter. 1. Will obtain labs, urinalysis, and attempt to replace her pubic catheter. 2. Will give empiric pain medications with antibiotics. TRAVEL OUTSIDE OF THE [place] IN LAST 30 DAYS: No - Related Data Allergies/Adverse Reactions: No Known Allergies Allergy (Verified 01/04/19 18:13) Past Medical History - General Information source: Patient - Social History Smoking Status: Never Smoker Chew tobacco use (# tins/day): No Frequency of alcohol use: None Drug Abuse: None Lives with: Friend Family History: Reviewed & Not Pertinent, Hypertension Patient has suicidal ideation: No Patient has homicidal ideation: No - Past Medical History Cardiac Medical History: Reports: None Pulmonary Medical History: Reports: None EENT Medical History: Reports: None Neurological Medical History: Reports: None Endocrine Medical History: Reports: None Renal/ Medical History: Reports: Hx Kidney Stones. Denies: Hx Peritoneal Dialysis Malignancy Medical History: Reports None GI Medical History: Reports: None Musculoskeletal Medical History: Reports None Skin Medical History: Reports None Psychiatric Medical History: Reports: Hx Bipolar Disorder, Hx Borderline Personality Disorder, Hx Depression Traumatic Medical History: Reports: None Infectious Medical History: Reports: None Past Surgical History: Reports: Hx Cholecystectomy, Hx Genitourinary Surgery - Suprapubic catheter - Immunizations Immunizations up to date: Yes Hx Diphtheria, Pertussis, Tetanus Vaccination: Yes History of Influenza Vaccine for 08/2017 - 01/2018 Season: Unknown Physical Exam - Vital signs Vitals: Temp Pulse Resp BP Pulse Ox 99.0 F 92 16 148/75 H 100 01/15/19 15:31 01/15/19 15:31 01/15/19 15:31 01/15/19 15:31 01/15/19 15:31 Course - Re-evaluation Re-evalutation: 01/15/19 23:39 Patient had his suprapubic catheter replaced with a Vo, that appeared to be the same as the catheter that was removed. It does not appear the patient had an actual suprapubic catheter. Labs are normal. He will be discharged home with return precautions and follow-up. Patient voices both understanding and agreeing with the plan. - Vital Signs Vital signs: Temp Pulse Resp BP Pulse Ox 97.9 F 86 16 129/75 H 97 01/15/19 20:40 01/15/19 20:40 01/15/19 20:40 01/15/19 20:40 01/15/19 20:40 - Laboratory Result Diagrams: 01/15/19 17:05 01/15/19 17:05 Laboratory results interpreted by me: 01/15/19 01/15/19 17:05 17:05 Hgb 12.1 L Hct 37.4 L MCV 74 L MCH 24.0 L RDW 21.1 H Lipase 388.6 H Discharge - Discharge Clinical Impression: Cystitis Vo catheter problem Qualifiers: Encounter type: initial encounter Qualified Code(s): T83.9XXA - Unspecified complication of genitourinary prosthetic device, implant and graft, initial encounter Condition: Good Disposition: HOME, SELF-CARE Instructions: Vo Catheter Care ([facility]) Additional Instructions: You have been evaluated in the Emergency Department for an issue with your suprapubic catheter. While here, you had blood work that was normal and have the catheter replaced and it is now safe to be discharged home. Please follow- up with a urologist as instructed to have the catheter evaluated and replaced if necessary. Return to the Emergency Department if you experience worsening pain, decreasing or absent drainage from your catheter, or any other concerning symptoms. Prescriptions: Tramadol HCl [Ultram 50 mg Tablet] 50 mg PO Q6HP PRN #28 tablet PRN Reason: For Pain Oxybutynin Chloride [Oxybutynin Chloride ER] 15 mg PO DAILY #30 tab.er.24 Referrals: RITIKA LOW MD [Primary Care Provider] - Follow up as needed KENYA JAVIER MD [[facility]] - Follow up as needed Print Language: Turkmen
[2019-01-15] MEDS ORDERED: MORPHINE SULFATE 10 MG/ML INJ IV ONE (21:18)
[2019-01-15] MEDS ORDERED: NORMAL SALINE 1000 ML 1,000 ML IV ONE (22:23)
[2019-01-15 23:58] VITALS: BP 131/69
== END 2019-01-15 23:58 | disposition home or self-care (01) ==
LOC: ER 15:25
DX: N30.90 Cystitis, unspecified without hematuria (principal); T83.9XXA Unspecified complication of genitourinary prosthetic device, implant and graft, initial encounter; Y84.6 Urinary catheterization as the cause of abnormal reaction of the patient, or of later complication, without mention of misadventure at the time of the procedure; Y73.8 Miscellaneous gastroenterology and urology devices associated with adverse incidents, not elsewhere classified; N31.9 Neuromuscular dysfunction of bladder, unspecified
CPT/HCPCS: 99284; 96361; 51702; 96374; 36415; 83690; 85025; 80053; C1758; J2270; J7030

== ENCOUNTER 2019-01-24 16:58 | Emergency (ER) | payer MEDICARE ==
--- NOTE | 2019-01-24 22:11 | ER Document Report ---
ED Medical Screen (RME) - General Chief Complaint: Urinary Problem Stated Complaint: BLOOD IN URINE Time Seen by Provider: 01/24/19 21:59 Primary Care Provider: RITIKA LOW MD [Primary Care Provider] - Follow up as needed Notes: Patient is a 48-year-old male who presents emergency department with a chief complaint of blood and pus in his urine. He has a suprapubic catheter in. He has been seen multiple times for urinary tract infections. He also complains of bladder pain and dark urine. He states that he has had some chills. Denies any nausea vomiting or diarrhea. Symptoms started yesterday. Exam: Suprapubic catheter noted. Purulence noted to urine. I have greeted and performed a rapid initial assessment of this patient. A comprehensive ED assessment and evaluation of the patient, analysis of test results and completion of medical decision making process will be conducted by an additional ED providers. TRAVEL OUTSIDE OF THE [place] IN LAST 30 DAYS: No - Related Data Allergies/Adverse Reactions: No Known Allergies Allergy (Verified 01/04/19 18:13) Past Medical History - Social History Family history: Reviewed & Not Pertinent Renal/ Medical History: Reports: Hx Kidney Stones. Denies: Hx Peritoneal Dialysis Psychiatric Medical History: Reports: Hx Bipolar Disorder, Hx Borderline Personality Disorder, Hx Depression Past Surgical History: Reports: Hx Cholecystectomy, Hx Genitourinary Surgery - Suprapubic catheter - Immunizations Immunizations up to date: Yes Hx Diphtheria, Pertussis, Tetanus Vaccination: Yes History of Influenza Vaccine for 08/2017 - 01/2018 Season: Unknown Physical Exam - Vital signs Vitals: Temp Pulse Resp BP Pulse Ox 98.5 F 85 16 129/83 H 98 01/24/19 17:54 01/24/19 17:54 01/24/19 17:54 01/24/19 17:54 01/24/19 17:54 Course - Vital Signs Vital signs: Temp Pulse Resp BP Pulse Ox 97.6 F 77 18 137/80 H 100 01/25/19 04:09 01/25/19 04:09 01/25/19 04:09 01/25/19 04:09 01/25/19 04:09 - Laboratory Result Diagrams: 01/24/19 22:45 01/24/19 22:45 Laboratory results interpreted by me: 01/24/19 01/25/19 22:45 00:11 Hgb 12.4 L MCV 74 L MCH 24.1 L RDW 20.3 H Urine Protein 100 H Urine Blood LARGE H Urine Nitrite POSITIVE H Urine Urobilinogen 2.0 H Ur Leukocyte Esterase LARGE H Doctor's Discharge - Discharge Clinical Impression: Acute cystitis Condition: Stable Disposition: HOME, SELF-CARE Additional Instructions: Urinary Tract Infection Your evaluation indicates that you have a urinary tract infection. This is due to germs growing in the bladder. This is a common problem. This infection usually responds quickly to antibiotics. Your antibiotic should be taken exactly as prescribed. Drink plenty of fluids -- three to four quarts a day. Occasionally, a bladder anesthetic will be prescribed to help stop the feeling of urgency until the antibiotic has a chance to clear the infection. This may cause your urine to be dark orange. Certain urine infections require a culture. If the doctor obtained a culture, the results will be back in two days. You should call to see if a change in treatment is needed. A repeat urinalysis after you finish treatment is often recommended. The physician will let you know if further testing is required. Call the doctor if you develop fever, chills, flank pain, inability to urinate, or blood in the urine. Levofloxacain You have been given an antibacterial agent, levofloxacin (Levaquin). This medicine is not related to the penicillins, sulfas, cephalosporins, or tetracyclines. It is often given to patients who are allergic to these drugs. It has been chosen for you either because other drugs are not appropriate, or because of the nature of your problem. Levaquin should not be taken with antacids, as these can decrease its effectiveness. It can be taken without regard to meals. LEVAQUIN SHOULD NOT BE TAKEN BY CHILDREN, NURSING WOMEN, OR WOMEN. Although Levaquin is usually well-tolerated, common side effects can include nausea and diarrhea. Contact your doctor if you experience any unusual symptoms while on this medication, such as joint pain or swelling, shortness of breath, wheezing, faintness, or hives. There is also an increased risk of tendon injury. Please only walk while you are on this medication. Do not engage in strenuous exercise for approximately 1 month after finishing the me dication. Prescriptions: Levofloxacin [Levaquin 750 mg Tablet] 750 mg PO DAILY #7 tablet Referrals: RITIKA LOW MD [Primary Care Provider] - Follow up as needed
[2019-01-24 23:11] LABS: ABSOLUTE BASOPHILS # (AUTO) 0.1 10^3/uL (0.0-0.2); ABSOLUTE EOSINOPHILS # (AUTO) 0.4 10^3/uL (0.0-0.6); ABSOLUTE LYMPHOCYTES (AUTO) 1.4 10^3/uL (0.5-4.7); ABSOLUTE MONOCYTES (AUTO) 0.8 10^3/uL (0.1-1.4); ABSOLUTE NEUT (AUTO) 5.3 10^3/uL (1.7-8.2); BASOPHILS % (AUTO) 1.4 % (0-2); EOSINOPHILS % (AUTO) 4.7 % (0-6); HEMOGLOBIN 12.4 g/dL (13.5-17.0); LYMPHOCYTES % (AUTO) 17.9 % (13-45); MEAN CORPUSCULAR HEMOGLOBIN 24.1 pg (27.0-33.4); MEAN CORPUSCULAR HGB CONC 32.5 g/dL (32.0-36.0); MEAN CORPUSCULAR VOLUME 74 fl (80-97); MONOCYTES % (AUTO) 9.5 % (3-13); PLATELET COUNT 301 10^3/uL (150-450); RED BLOOD COUNT 5.15 10^6/uL (4.35-5.55); RED CELL DISTRIBUTION WIDTH 20.3 % (11.5-14.0); SEGMENTED NEUTROPHILS % (AUTO) 66.5 % (42-78); TOTAL CELLS COUNTED % (AUTO) 100 %
[2019-01-24 23:21] LABS: INTERNATIONAL RATION (INR) 1.03
[2019-01-24 23:45] LABS: ALANINE AMINOTRANSFERASE 21 U/L (21-72); ALBUMIN 4.3 g/dL (3.5-5.0); ALKALINE PHOSPHATASE 79 U/L (38-126); ANION GAP 9 (5-19); ASPARTATE AMINO TRANSFERASE 38 U/L (17-59); BILIRUBIN,DIRECT 0.3 mg/dL (0.0-0.4); BILIRUBIN,TOTAL 0.6 mg/dL (0.2-1.3); BLOOD UREA NITROGEN 14 mg/dL (7-20); CALCIUM 9.3 mg/dL (8.4-10.2); CARBON DIOXIDE 25 mmol/L (22-30); CHLORIDE 104 mmol/L (98-107); GLUCOSE 98 mg/dL (75-110); POTASSIUM 3.9 mmol/L (3.6-5.0); SODIUM 138.4 mmol/L (137-145); TOTAL PROTEIN 6.9 g/dL (6.3-8.2)
[2019-01-24] MEDS ORDERED: KETOROLAC TROMETHAMINE INJ/PF 30 MG/1 ML SDV IV ONE (23:49)
[2019-01-24] MEDS ORDERED: ONDANSETRON HCL INJ/PF 4 MG/2 ML SDV IV ONE (23:49)
[2019-01-25 00:08] LABS: VENOUS BLOOD BASE EXCESS 0.9 mmol/L; VENOUS BLOOD HCO3 25.3 mmol/L (20-32); VENOUS BLOOD PCO2 39.5 mmHg (35-63); VENOUS BLOOD PH 7.42 (7.30-7.42)
[2019-01-25 01:04] LABS: APPEARANCE,URINE CLOUDY; BILIRUBIN,URINE NEGATIVE (NEGATIVE); CALCIUM OXALATE CRYSTALS,URINE FEW /HPF; COLOR,URINE AMBER; GLUCOSE, URINE NEGATIVE (NEGATIVE); KETONES,URINE NEGATIVE (NEGATIVE); LEUKOCYTE ESTERASE,URINE LARGE (NEGATIVE); NITRITE,URINE POSITIVE (NEGATIVE); PROTEIN,URINE 100 mg/dL (NEGATIVE)
[2019-01-25] MEDS ORDERED: LEVOFLOXACIN 750 MG TABLET PO ONE (01:15)
--- NOTE | 2019-01-25 02:54 | RADIOLOGY REPORT (SQ) ---
EXAM DESCRIPTION: CT ABDOMEN PELVIS WITHOUT IV CONTRAST COMPLETED DATE/TME: 01/25/2019 01:15 CLINICAL HISTORY: 48 years, Male, possible infectd stone Comparison: None TECHNIQUE: Contiguous axial CT images of the abdomen and pelvis were obtained. Sagittal and coronal reformats were reviewed. This exam was performed according to our departmental dose-optimization program, which includes automated exposure control, adjustment of the mA and/or kV according to patient size and/or use of iterative reconstruction technique. FINDINGS: Lung bases: Clear. Liver:Unremarkable. No focal liver lesion. Gallbladder:Cholecystectomy clips seen in gallbladder fossa. Spleen:Unremarkable Pancreas: Pancreas is unremarkable. Adrenal glands:Within normal limits. Kidneys/ureters:Within normal limits Stomach/small bowel/colon: Postsurgical changes involving the stomach and small bowel. Mild gaseous dilatation of scattered loops of small bowel and the proximal colon. Appendix: No evidence of appendicitis. Peritoneum: No free fluid. Vascular structures: within normal limits Lymph nodes: No abnormal lymph nodes. Bladder: Suprapubic catheter terminates within the urinary bladder which is decompressed. Pelvic organs: No acute abnormality Bones: No acute osseous abnormality. Soft tissues: Unremarkable.. IMPRESSION: No acute intra-abdominal abnormality.
--- NOTE | 2019-01-25 04:05 | ER Document Report ---
Entered by PRANAV ARRIETA SCRIBE 01/25/19 0116 Acting as scribe for:FO[facility] [employer] DO ED GI/ - General Chief Complaint: Urinary Problem Stated Complaint: BLOOD IN URINE Time Seen by Provider: 01/24/19 21:59 Primary Care Provider: RITIKA LOW MD [Primary Care Provider] - Follow up as needed Information source: Patient Notes: 48-year-old male with suprapubic catheter in place who presents to the emergency department today with complaints of a possible UTI. Patient states he has noticed pus in his urine as well as pus coming out around the catheter tubing. Patient states he has had malaise and felt generally tired as well. Patient states he has had chills and sweats but denies any documented fevers. TRAVEL OUTSIDE OF THE [place] IN LAST 30 DAYS: No - Related Data Allergies/Adverse Reactions: No Known Allergies Allergy (Verified 01/04/19 18:13) Past Medical History - General Information source: Patient - Social History Smoking Status: Former Smoker Chew tobacco use (# tins/day): No Frequency of alcohol use: Occasional Drug Abuse: None Lives with: Family Family History: Reviewed & Not Pertinent, Hypertension Patient has suicidal ideation: No Patient has homicidal ideation: No Renal/ Medical History: Reports: Hx Kidney Stones Psychiatric Medical History: Reports: Hx Bipolar Disorder, Hx Borderline Personality Disorder, Hx Depression Past Surgical History: Reports: Hx Cholecystectomy, Hx Genitourinary Surgery - Suprapubic catheter - Immunizations Immunizations up to date: Yes Hx Diphtheria, Pertussis, Tetanus Vaccination: Yes Review of Systems - Review of Systems Constitutional: See HPI, Chills, Diaphoresis, Malaise. denies: Fever EENT: No symptoms reported Cardiovascular: No symptoms reported Respiratory: No symptoms reported Gastrointestinal: No symptoms reported Genitourinary: See HPI, Other - pus in catheter Male Genitourinary: No symptoms reported Musculoskeletal: No symptoms reported Skin: No symptoms reported Hematologic/Lymphatic: No symptoms reported Neurological/Psychological: No symptoms reported -: Yes All other systems reviewed and negative Physical Exam - Vital signs Vitals: Temp Pulse Resp BP Pulse Ox 98.5 F 85 16 129/83 H 98 01/24/19 17:54 01/24/19 17:54 01/24/19 17:54 01/24/19 17:54 01/24/19 17:54 - Notes Notes: PHYSICAL EXAM GENERAL: Alert, interacts well. No acute distress. HEAD: Normocephalic, atraumatic. EYES: Pupils equal, round, and reactive to light. Extraocular movements intact. ENT: Oral mucosa moist, tongue midline. NECK: Full range of motion. Supple. Trachea midline. LUNGS: Clear to auscultation bilaterally, no wheezes, rales, or rhonchi. No respiratory distress. HEART: Regular rate and rhythm. No murmurs, gallops, or rubs. ABDOMEN: Soft, suprapubic catheter in place, surrounding erythema around catheter insertion extending approximately 1.5 cm. This erythema is very pale and appears more consistent with surgical scarring than infection. Pus in catheter tubing as well as around the catheter itself. No fluctuance. Non- distended. Bowel sounds present in all 4 quadrants. No guarding, rigidity, or rebound. EXTREMITIES: Moves all 4 extremities spontaneously. No edema, radial and dorsalis pedis pulses 2/4 bilaterally. No cyanosis. NEUROLOGICAL: Alert and oriented x3. Normal speech. PSYCH: Normal affect, normal mood. SKIN: Warm, mildly diaphoretic, normal turgor. Course - Re-evaluation Re-evalutation: 01/25/19 01:16 CBC shows mild anemia with hemoglobin 12.4, no leukocytosis, coags normal, venous blood gas normal, lactic acid normal, chemistries unremarkable, no evidence of sepsis, urinalysis shows blood, positive nitrates, large leukocyte esterase, there is gross pus in his urinalysis. Given the calcium oxalate crystals I think it is prudent to perform a renal CT scan to look for any sign of stone. Prior urinary cultures results reviewed and they show a polymicrobial infection which is susceptible to Levaquin. This is been administered by mouth. 01/25/19 03:18 CT scan of the abdomen pelvis does not show any signs of stone. Patient will be discharged home on Levaquin. Warned about risks of tendon rupture. - Vital Signs Vital signs: Temp Pulse Resp BP Pulse Ox 98.5 F 85 16 129/83 H 98 01/24/19 17:54 01/24/19 17:54 01/24/19 17:54 01/24/19 17:54 01/24/19 17:54 - Laboratory Result Diagrams: 01/24/19 22:45 01/24/19 22:45 Laboratory results interpreted by me: 01/24/19 01/25/19 22:45 00:11 Hgb 12.4 L MCV 74 L MCH 24.1 L RDW 20.3 H Urine Protein 100 H Urine Blood LARGE H Urine Nitrite POSITIVE H Urine Urobilinogen 2.0 H Ur Leukocyte Esterase LARGE H Discharge - Discharge Clinical Impression: Acute cystitis Qualifiers: Hematuria presence: with hematuria Qualified Code(s): N30.01 - Acute cystitis with hematuria Condition: Stable Disposition: HOME, SELF-CARE Additional Instructions: Urinary Tract Infection Your evaluation indicates that you have a urinary tract infection. This is due to germs growing in the bladder. This is a common problem. This infection usually responds quickly to antibiotics. Your antibiotic should be taken exactly as prescribed. Drink plenty of fluids -- three to four quarts a day. Occasionally, a bladder anesthetic will be prescribed to help stop the feeling of urgency until the antibiotic has a chance to clear the infection. This may cause your urine to be dark orange. Certain urine infections require a culture. If the doctor obtained a culture, the results will be back in two days. You should call to see if a change in treatment is needed. A repeat urinalysis after you finish treatment is often recommended. The physician will let you know if further testing is required. Call the doctor if you develop fever, chills, flank pain, inability to urinate, or blood in the urine. Levofloxacain You have been given an antibacterial agent, levofloxacin (Levaquin). This medicine is not related to the penicillins, sulfas, cephalosporins, or tetracyclines. It is often given to patients who are allergic to these drugs. It has been chosen for you either because other drugs are not appropriate, or because of the nature of your problem. Levaquin should not be taken with antacids, as these can decrease its effectiveness. It can be taken without regard to meals. LEVAQUIN SHOULD NOT BE TAKEN BY CHILDREN, NURSING WOMEN, OR WOMEN. Although Levaquin is usually well-tolerated, common side effects can include nausea and diarrhea. Contact your doctor if you experience any unusual symptoms while on this medication, such as joint pain or swelling, shortness of breath, wheezing, faintness, or hives. There is also an increased risk of tendon injury. Please only walk while you are on this medication. Do not engage in strenuous exercise for approximately 1 month after finishing the medication. Prescriptions: Levofloxacin [Levaquin 750 mg Tablet] 750 mg PO DAILY #7 tablet Referrals: RITIKA LOW MD [Primary Care Provider] - Follow up as needed I personally performed the services described in the documentation, reviewed and edited the documentation which was dictated to the scribe in my presence, and it accurately records my words and actions.
[2019-01-25 04:10] VITALS: BP 137/80
--- NOTE | 2019-01-25 07:39 | EKG REPORT ---
SEVERITY:- ABNORMAL ECG - SINUS RHYTHM IVCD, CONSIDER ATYPICAL RBBB : Confirmed by: Marco Lux MD 25-Jan-2019 07:38:48
== END 2019-01-25 04:10 | disposition home or self-care (01) ==
LOC: ER 16:58
DX: N30.01 Acute cystitis with hematuria (principal); Z87.891 Personal history of nicotine dependence
CPT/HCPCS: 93005; 99284; 96374; 96375; 36415; 87040; 87086; 85025; 85610; 87088; 80053; 81001; 87186; 82803; 83605; 74176; 93010; J1885; J2405; A9270

== ENCOUNTER 2019-02-06 23:53 | Emergency (ER) | payer MEDICARE ==
[2019-02-07] MEDS ORDERED: KETOROLAC TROMETHAMINE 60 MG/2 ML SDV IM ONE (03:12)
[2019-02-07] MEDS ORDERED: PROMETHAZINE HCL 25 MG TABLET PO ONE (03:12)
--- NOTE | 2019-02-07 03:14 | ER Document Report ---
ED GI/ - General Chief Complaint: Problem with Urinary Catheter Stated Complaint: URINARY PROBLEM Time Seen by Provider: 02/07/19 03:03 Notes: Patient is a 48-year-old male that comes emergency department for chief complaint of problems with his suprapubic catheter. He states there is a lot of sediment, he feels it is not flowing correctly, and he also excellently ripped the bottom part on the leg bag. He states this is past due for replacement, states he was supposed to be replaced last month. He states he has intermittent pains around the area as well. Denies fever chills, nausea or vomiting. He states that he had "anxiety" when he first got here but now it resolved. He states he did not have any pain that he wants to have worked up, he declines any evaluation and management except for treatment of the Vo catheter. TRAVEL OUTSIDE OF THE [place] IN LAST 30 DAYS: No - Related Data Allergies/Adverse Reactions: No Known Allergies Allergy (Verified 01/04/19 18:13) Past Medical History - General Information source: Patient - Social History Smoking Status: Current Some Day Smoker Drug Abuse: None Lives with: Alone Family History: Reviewed & Not Pertinent, Hypertension Renal/ Medical History: Reports: Hx Kidney Stones. Denies: Hx Peritoneal Dialysis Psychiatric Medical History: Reports: Hx Bipolar Disorder, Hx Borderline Personality Disorder, Hx Depression Past Surgical History: Reports: Hx Cholecystectomy, Hx Genitourinary Surgery - Suprapubic catheter - Immunizations Immunizations up to date: Yes Hx Diphtheria, Pertussis, Tetanus Vaccination: Yes Review of Systems - Review of Systems Constitutional: No symptoms reported EENT: No symptoms reported Cardiovascular: See HPI Respiratory: No symptoms reported Gastrointestinal: No symptoms reported Genitourinary: See HPI Male Genitourinary: No symptoms reported Musculoskeletal: No symptoms reported Skin: No symptoms reported Hematologic/Lymphatic: No symptoms reported Neurological/Psychological: See HPI Physical Exam - Vital signs Vitals: Temp Pulse Resp BP Pulse Ox 98.1 F 91 17 140/84 H 98 02/07/19 00:13 02/07/19 00:13 02/07/19 00:13 02/07/19 00:13 02/07/19 00:13 - Notes Notes: GENERAL: Alert, interacts well. No acute distress. HEAD: Normocephalic, atraumatic. EYES: Pupils equal, round, and reactive to light. Extraocular movements intact. ENT: Oral mucosa moist, tongue midline. Oropharynx unremarkable. Airway patent. Nares patent, no nasal septal hematoma, TM's intact. NECK: Full range of motion. Supple. Trachea midline. LUNGS: Clear to auscultation bilaterally, no wheezes, rales, or rhonchi. No respiratory distress. HEART: Regular rate and rhythm. No murmur ABDOMEN: Soft, non-tender. Non-distended. Bowel sounds present in all 4 quadrants. Suprapubic catheter in place, this is full sediment, the bag is ripped at the base and will not attach properly to the band connecting to the leg. Otherwise unremarkable. GENITOURINARY: No concerning external abnormalities noted. EXTREMITIES: Moves all 4 extremities spontaneously. No edema, normal radial and dorsalis pedis pulses bilaterally. No cyanosis. BACK: no cervical, thoracic, lumbar midline tenderness. No saddle anesthesia, normal distal neurovascular exam. NEUROLOGICAL: Alert and oriented x3. Normal speech. [cranial nerves II through XII grossly intact]. PSYCH: Normal affect, normal mood. SKIN: Warm, dry, normal turgor. No rashes or lesions noted. Course - Re-evaluation Re-evalutation: Patient is well-appearing. Afebrile. Requested something for pain and nausea, he states he gets this after his Vo is changed. He does not have it at this time. He was given Toradol and Phenergan. He declined workup for his anxious episode, states he is not having chest pain and he knows he did not take. I did offer to do the workup but he declined. Suprapubic catheter is full of sediment, this was also ripped, this was changed. Good urine flow with no symptoms on reevaluation. Urine was collected, cultured. He has had multiple resistance in the past, previous one not showing resistance to Macrobid, he will be placed on this. Discussed follow-up, he states he does have primary care now and pending a urology follow-up. Discussed return precautions. Patient asking to leave now. Patient states understanding and agreement with plan. - Vital Signs Vital signs: Temp Pulse Resp BP Pulse Ox 97.6 F 77 15 129/73 H 100 02/07/19 06:05 02/07/19 06:05 02/07/19 06:05 02/07/19 06:05 02/07/19 06:05 - Laboratory Laboratory results interpreted by me: 02/07/19 04:24 Urine Protein 100 H Urine Ketones TRACE H Urine Blood SMALL H Urine Nitrite POSITIVE H Urine Urobilinogen 2.0 H Ur Leukocyte Esterase SMALL H Discharge - Discharge Clinical Impression: Vo catheter problem Qualifiers: Encounter type: initial encounter Qualified Code(s): T83.9XXA - Unspecified complication of genitourinary prosthetic device, implant and graft, initial encounter Condition: Stable Disposition: HOME, SELF-CARE Additional Instructions: The Vo catheter has been exchanged. We have a culture going on your current urine. Based on previous cultures I recommend that you continue Macrobid for 5 more days. Follow-up with your primary care provider in their referrals. Return if you worsen including vomiting, fever, or something is not right. Prescriptions: Nitrofurantoin/Nitrofuran Mac [Macrobid 100 mg Capsule] 1 tab PO BID 5 Days #10 capsule
[2019-02-07 05:37] LABS: APPEARANCE,URINE CLOUDY; BILIRUBIN,URINE NEGATIVE (NEGATIVE); CALCIUM OXALATE CRYSTALS,URINE MODERATE /HPF; COLOR,URINE AMBER; GLUCOSE, URINE NEGATIVE (NEGATIVE); KETONES,URINE TRACE mg/dL (NEGATIVE); LEUKOCYTE ESTERASE,URINE SMALL (NEGATIVE); NITRITE,URINE POSITIVE (NEGATIVE); PROTEIN,URINE 100 mg/dL (NEGATIVE); URINE SPECIFIC GRAVITY 1.026
[2019-02-07 06:08] VITALS: BP 129/73
== END 2019-02-07 06:08 | disposition home or self-care (01) ==
LOC: ER 23:53
DX: T83.9XXA Unspecified complication of genitourinary prosthetic device, implant and graft, initial encounter (principal); R11.0 Nausea; I10 Essential (primary) hypertension; F17.200 Nicotine dependence, unspecified, uncomplicated
CPT/HCPCS: 99283; 96372; 51702; 87086; 87088; 81001; C1758; J1885; A9270; 87186

== ENCOUNTER 2019-02-13 01:33 | Emergency (ER) | payer MEDICARE ==
[2019-02-13 04:23] LABS: AMORPHOUS SEDIMENT,URINE TRACE /HPF; APPEARANCE,URINE SLIGHTLY-CLOUDY; BILIRUBIN,URINE NEGATIVE (NEGATIVE); COLOR,URINE YELLOW; GLUCOSE, URINE 150 mg/dL (NEGATIVE); KETONES,URINE NEGATIVE (NEGATIVE); LEUKOCYTE ESTERASE,URINE LARGE (NEGATIVE); NITRITE,URINE POSITIVE (NEGATIVE); PROTEIN,URINE 30 mg/dL (NEGATIVE); URINE SPECIFIC GRAVITY 1.008; UROBILINOGEN,URINE NEGATIVE mg/dL (<2.0)
[2019-02-13] MEDS ORDERED: CEPHALEXIN 500 MG CAPSULE PO ONE (04:42)
--- NOTE | 2019-02-13 06:05 | ER Document Report ---
ED General - General Chief Complaint: Urinary Problem Stated Complaint: ABDOMINAL PAIN Time Seen by Provider: 02/13/19 03:41 Primary Care Provider: DANIAL LABOY MD [Primary Care Provider] - Follow up as needed Notes: Patient is a 48-year-old male well-known to the emergency department presents for refill of his medications. States he takes lithium 350 mg twice daily and Depakote 250 mg daily. States he is also taking Macrobid for continued urinary tract infection. States he finished the Macrobid a few days ago. Patient states he does have an appointment with his primary care provider but cannot get into psychiatric facility until later in the month. Patient is requesting a refill on his psychiatric medications. States he does have some abdominal spasming. Patient does have a suprapubic catheter due from complications from influenza vaccine. Patient is denying any fever or vomiting. TRAVEL OUTSIDE OF THE [place] IN LAST 30 DAYS: No - Related Data Allergies/Adverse Reactions: No Known Allergies Allergy (Verified 01/04/19 18:13) Past Medical History - General Information source: Patient - Social History Smoking Status: Unknown if Ever Smoked Family History: Reviewed & Not Pertinent, Hypertension Patient has suicidal ideation: No Patient has homicidal ideation: No Renal/ Medical History: Reports: Hx Kidney Stones. Denies: Hx Peritoneal Dialysis Psychiatric Medical History: Reports: Hx Bipolar Disorder, Hx Borderline Personality Disorder, Hx Depression Past Surgical History: Reports: Hx Cholecystectomy, Hx Genitourinary Surgery - Suprapubic catheter - Immunizations Immunizations up to date: Yes Hx Diphtheria, Pertussis, Tetanus Vaccination: Yes Review of Systems - Review of Systems Constitutional: Fever EENT: No symptoms reported Cardiovascular: No symptoms reported Respiratory: No symptoms reported Gastrointestinal: See HPI Genitourinary: See HPI Male Genitourinary: No symptoms reported Musculoskeletal: No symptoms reported Skin: No symptoms reported Hematologic/Lymphatic: No symptoms reported Neurological/Psychological: No symptoms reported Physical Exam - Vital signs Vitals: Temp Pulse Resp BP Pulse Ox 98.2 F 90 16 141/79 H 96 02/13/19 01:45 02/13/19 01:45 02/13/19 01:45 02/13/19 01:45 02/13/19 01:45 - Notes Notes: GENERAL: Alert, interacts well. No acute distress. HEAD: Normocephalic, atraumatic. EYES: Pupils equal, round, and reactive to light. Extraocular movements intact. ENT: Oral mucosa moist, tongue midline. NECK: Full range of motion. Supple. Trachea midline. LUNGS: Clear to auscultation bilaterally, no wheezes, rales, or rhonchi. No respiratory distress. HEART: Regular rate and rhythm. No murmur ABDOMEN: Soft, non-tender. Non-distended. Bowel sounds present in all 4 quadrants. EXTREMITIES: Moves all 4 extremities spontaneously. No edema, normal radial and dorsalis pedis pulses bilaterally. No cyanosis. BACK: no cervical, thoracic, lumbar midline tenderness. No saddle anesthesia, normal distal neurovascular exam. NEUROLOGICAL: Alert and oriented x3. Normal speech. cranial nerves II through XII grossly intact PSYCH: Normal affect, normal mood. SKIN: Warm, dry, normal turgor. No rashes or lesions noted. Course - Re-evaluation Re-evalutation: 02/13/19 06:13 Patient's urine does show signs of infection. Sent for culture. Started on Keflex. [place] and Depakote refilled. Discussed close follow-up with primary care provider and psychiatric provider. Patient afebrile, non-hypotensive, stable for discharge. - Vital Signs Vital signs: Temp Pulse Resp BP Pulse Ox 98.2 F 90 16 141/79 H 96 02/13/19 01:49 02/13/19 01:49 02/13/19 01:49 02/13/19 01:49 02/13/19 01:49 - Laboratory Laboratory results interpreted by me: 02/13/19 03:59 Urine Protein 30 H Urine Glucose (UA) 150 H Urine Blood SMALL H Urine Nitrite POSITIVE H Ur Leukocyte Esterase LARGE H Discharge - Discharge Clinical Impression: Medication refill Urinary tract infection Qualifiers: Urinary tract infection type: catheter-associated UTI Indwelling urinary catheter type: unspecified Encounter type: initial encounter Qualified Code(s): T83.511A - Infection and inflammatory reaction due to indwelling urethral catheter, initial encounter Condition: Stable Disposition: HOME, SELF-CARE Instructions: Cephalexin ([facility]), Urinary Tract Infection ([facility]) Additional Instructions: As we discussed you have been seen and treated in the emergency department for a urinary tract infection and a refill of your medications. Please make sure you follow-up with your primary care provider in the next 24-48 hours return to the emergency room should you have any other concerning symptoms. Prescriptions: Cephalexin Monohydrate [Keflex 500 mg Capsule] 500 mg PO BID 7 Days #14 capsule Divalproex Sodium [Depakote Er 250 Mg Tablet] 250 mg PO DAILY #30 tab.sr.24h [place] Carbonate 350 mg PO BID 30 Days tablet Referrals: DANIAL LABOY MD [Primary Care Provider] - Follow up as needed
[2019-02-13 06:42] VITALS: BP 139/80
== END 2019-02-13 06:41 | disposition home or self-care (01) ==
LOC: ER 01:33
DX: Z76.0 Encounter for issue of repeat prescription (principal); T83.511A Infection and inflammatory reaction due to indwelling urethral catheter, initial encounter; Z79.899 Other long term (current) drug therapy
CPT/HCPCS: 99283; 87086; 87088; 81001; 87186; A9270

== ENCOUNTER 2019-02-19 16:18 | Emergency (ER) | payer MEDICARE ==
[2019-02-19] MEDS ORDERED: ONDANSETRON 4 MG TAB.RAPDIS PO ONE (17:47)
[2019-02-19] MEDS ORDERED: KETOROLAC TROMETHAMINE 60 MG/2 ML SDV IM ONE (17:48)
--- NOTE | 2019-02-19 17:51 | ER Document Report ---
ED Medical Screen (RME) - General Chief Complaint: Problem with Urinary Catheter Stated Complaint: URINARY ISSUE Time Seen by Provider: 02/19/19 17:43 Primary Care Provider: DANIAL LABOY MD [Primary Care Provider] - Follow up as needed Mode of Arrival: Ambulatory Information source: Patient Notes: Patient presents emergency department with complaints of bladder spasms and his suprapubic catheter Vo leaking. Also complains of irritation around the suprapubic catheter opening. Complaints his blood pressure is high his heart rate is up because he is hurting. I have greeted and performed a rapid initial assessment of this patient. A comprehensive ED assessment and evaluation of the patient, analysis of test results and completion of the medical decision making process will be conducted by additional ED providers. Dictation of this chart was performed using voice recognition software; therefore, there may be some unintended grammatical errors. TRAVEL OUTSIDE OF THE [place] IN LAST 30 DAYS: No - Related Data Allergies/Adverse Reactions: No Known Allergies Allergy (Verified 02/19/19 16:21) Past Medical History - Social History Family history: Reviewed & Not Pertinent Renal/ Medical History: Reports: Hx Kidney Stones. Denies: Hx Peritoneal Dialysis Psychiatric Medical History: Reports: Hx Bipolar Disorder, Hx Borderline Personality Disorder, Hx Depression Past Surgical History: Reports: Hx Cholecystectomy, Hx Genitourinary Surgery - Suprapubic catheter - Immunizations Immunizations up to date: Yes Hx Diphtheria, Pertussis, Tetanus Vaccination: Yes History of Influenza Vaccine for 08/2017 - 01/2018 Season: Unknown Physical Exam - Vital signs Vitals: Temp Pulse Resp BP Pulse Ox 98 F 102 H 18 161/78 H 98 02/19/19 16:34 02/19/19 16:34 02/19/19 16:34 02/19/19 16:34 02/19/19 16:34 Course - Vital Signs Vital signs: Temp Pulse Resp BP Pulse Ox 98 F 102 H 18 161/78 H 98 02/19/19 16:34 02/19/19 16:34 02/19/19 16:34 02/19/19 16:34 02/19/19 16:34 Doctor's Discharge - Discharge Referrals: DANIAL LABOY MD [Primary Care Provider] - Follow up as needed
[2019-02-19 18:32] LABS: APPEARANCE,URINE TURBID; BILIRUBIN,URINE NEGATIVE (NEGATIVE); GLUCOSE, URINE >=500 mg/dL (NEGATIVE); KETONES,URINE TRACE mg/dL (NEGATIVE); LEUKOCYTE ESTERASE,URINE LARGE (NEGATIVE); NITRITE,URINE POSITIVE (NEGATIVE); PROTEIN,URINE 100 mg/dL (NEGATIVE); URINE SPECIFIC GRAVITY 1.023
[2019-02-19 18:33] LABS: COLOR,URINE YELLOW
[2019-02-19] MEDS ORDERED: CEFTRIAXONE 1 GM/D5W RTU 1 GM/50 ML RTUPB IV ONE (22:03)
[2019-02-19] MEDS ORDERED: CEFTRIAXONE INJ 1000 MG VIAL IM ONE (22:12)
[2019-02-19] MEDS ORDERED: LIDOCAINE 1% INJ-PF (10 MG/ML) 30 ML SDV NEB ONE (22:12)
[2019-02-19] MEDS ORDERED: MORPHINE SULFATE 10 MG/ML INJ IM ONE (22:12)
--- NOTE | 2019-02-19 22:18 | ER Document Report ---
ED General - General Chief Complaint: Problem with Urinary Catheter Stated Complaint: URINARY ISSUE Time Seen by Provider: 02/19/19 17:43 Primary Care Provider: DANIAL LABOY MD [Primary Care Provider] - Follow up as needed Mode of Arrival: Ambulatory Notes: Patient is a 48-year-old male history of suprapubic catheter that presents to the emergency department for chief complaint of bladder spasming, and concern for urinary tract infection. Patient states his been having symptoms for over a week now, was seen in the emergency department and started on Keflex, but his symptoms have not resolved, he still having spasming of his bladder that much improvement of his pain, he noticed some pus drainage from the suprapubic catheter site as well. He was concerned about that. His catheter has been draining and flowing well however. Denies any fevers, chills, night sweats, chest pain, shortness of breath or difficulty breathing. Past Medical History: Transverse myelitis, urinary incontinence Past Surgical History: Suprapubic catheter Social History: Denies current tobacco, alcohol or drug use. Family History: Reviewed and noncontributory for presenting illness Allergies: Reviewed, see documented allergy list. REVIEW OF SYSTEMS: Other than noted above, the 12 point review of systems was reviewed with the patient and were negative, all pertinent findings are included in the HPI. PHYSICAL EXAMINATION: Vital signs reviewed, nursing noted reviewed. GENERAL: Well-appearing, well-nourished, but appears uncomfortable HEAD: Atraumatic, normocephalic. EYES: Eyes appear normal, extraocular movements intact, sclera anicteric, conjunctiva are normal. ENT: nares patent, oropharynx clear without exudates. Moist mucous membranes. NECK: Normal range of motion, supple without lymphadenopathy LUNGS: Breath sounds clear to auscultation bilaterally and equal. No wheezes rales or rhonchi. HEART: Heart rate borderline tachycardic, regular rhythm. ABDOMEN: Soft, nontender, normoactive bowel sounds. No rebound, guarding, or rigidity. No masses appreciated. Suprapubic catheter in place, no pus drainage noted at the site, appears to be draining well into his leg bag. EXTREMITIES: Nontender, good range of motion, no pitting or edema. NEUROLOGICAL: No focal neurological deficits. Moves all extremities spontaneously however strength and sensation somewhat decreased in the lower extremities compared to the upper extremities, chronic per patient, from his history of transverse myelitis. PSYCH: Normal mood, normal affect. SKIN: Warm, Dry, normal turgor, no rashes or lesions noted on exposed skin TRAVEL OUTSIDE OF THE [place] IN LAST 30 DAYS: No - Related Data Allergies/Adverse Reactions: No Known Allergies Allergy (Verified 02/19/19 16:21) Past Medical History - General Information source: Patient - Social History Smoking Status: Never Smoker Family History: Reviewed & Not Pertinent, Hypertension Patient has suicidal ideation: No Patient has homicidal ideation: No Renal/ Medical History: Reports: Hx Kidney Stones. Denies: Hx Peritoneal Dialysis Psychiatric Medical History: Reports: Hx Bipolar Disorder, Hx Borderline Personality Disorder, Hx Depression Past Surgical History: Reports: Hx Cholecystectomy, Hx Genitourinary Surgery - Suprapubic catheter - Immunizations Immunizations up to date: Yes Hx Diphtheria, Pertussis, Tetanus Vaccination: Yes Physical Exam - Vital signs Vitals: Temp Pulse Resp BP Pulse Ox 98 F 102 H 18 161/78 H 98 02/19/19 16:34 02/19/19 16:34 02/19/19 16:34 02/19/19 16:34 02/19/19 16:34 Course - Re-evaluation Re-evalutation: Patient seen and examined vital signs reviewed. Laboratory data and/or imaging were ordered as appropriate for the patient's presenting symptoms and complaint, with consideration of any critical or life threatening conditions that may be associated with their obtained history and exam as noted above. Patient was treated with IM Rocephin, in triage she was given IM Toradol, and treated with Zofran for his nausea Results were reviewed when available and demonstrated UA concerning for urinary tract infection, prior cultures reviewed, patient's prior cultures were sensitive to Rocephin, he was given a dose of IM morphine, for his suprapubic pain. The patient was re-evaluated and was stable Evaluation was most consistent with urinary tract infection, complex, will treat with Omnicef twice daily for 10 days, and given prescription for Pyridium as well to help with bladder spasming. Results were discussed with the patient at this point, after careful consideration I feel that that patient can be discharged from the emergency depa rtment, the patient was educated treatments and reasons to return to the emergency department based on their presumed diagnosis as noted above, they were advised to followup with a primary care physician in 2-3 days. Patient was agreeable to plan of care. *Note is created using voice recognition software and may contain spelling, syntax or grammatical errors. Laboratory 02/19/19 18:10 Urine Color YELLOW Urine Appearance TURBID Urine pH 5.0 Ur Specific [place] 1.023 Urine Protein 100 H Urine Glucose (UA) >=500 H Urine Ketones TRACE H Urine Blood NEGATIVE Urine Nitrite POSITIVE H Urine Bilirubin NEGATIVE Urine Urobilinogen 4.0 H Ur Leukocyte Esterase LARGE H Urine WBC (Auto) >182 Urine RBC (Auto) 36 Urine WBC Clumps MANY Urine Mucus (Auto) OCC Urine Ascorbic Acid NEGATIVE - Vital Signs Vital signs: Temp Pulse Resp BP Pulse Ox 98 F 102 H 18 161/78 H 98 02/19/19 16:34 02/19/19 16:34 02/19/19 16:34 02/19/19 16:34 02/19/19 16:34 - Laboratory Laboratory results interpreted by me: 02/19/19 18:10 Urine Protein 100 H Urine Glucose (UA) >=500 H Urine Ketones TRACE H Urine Nitrite POSITIVE H Urine Urobilinogen 4.0 H Ur Leukocyte Esterase LARGE H Discharge - Discharge Clinical Impression: UTI (urinary tract infection) Qualifiers: Urinary tract infection type: site unspecified Hematuria presence: without hematuria Qualified Code(s): N39.0 - Urinary tract infection, site not specified Condition: Stable Disposition: HOME, SELF-CARE Instructions: Urinary Tract Infection ([facility]) Additional Instructions: Please complete the entire course of the antibiotics that were prescribed, you can also take the Pyridium which may help with some of the bladder spasming that you are experiencing. Prescriptions: Cefdinir 300 mg PO BID #20 capsule Phenazopyridine HCl [Pyridium 200 mg Tablet] 200 mg PO TID #15 tablet Referrals: DANIAL LABOY MD [Primary Care Provider] - Follow up in 3-5 days
[2019-02-19 23:58] VITALS: BP 139/89
== END 2019-02-19 23:57 | disposition home or self-care (01) ==
LOC: ER 16:18
DX: N39.0 Urinary tract infection, site not specified (principal); N32.89 Other specified disorders of bladder; R10.30 Lower abdominal pain, unspecified; Z87.442 Personal history of urinary calculi
CPT/HCPCS: 99283; 96372; 87086; 87088; 81001; 87186; J1885; A9270; J3490; J2270; J0696; S0119

== ENCOUNTER 2019-02-27 17:14 | Emergency (ER) | payer MEDICARE ==
[2019-02-27] MEDS ORDERED: ONDANSETRON ODT 4 MG TAB (6 TAB/ER DISP) PO PRN (19:08)
--- NOTE | 2019-02-27 19:08 | ER Document Report ---
HPI - HPI Time Seen by Provider: 02/27/19 18:51 Pain Level: 5 Context: Patient is a 48-year-old male history of suprapubic catheter that presents to the emergency department for chief complaint of needing his Vo catheter bag changed. Patient states that his urine has been clear and is currently on antibiotics. He does complain of some nausea, but denies any vomiting. He does have suprapubic pain at the site, which he chronically happens. Past medical history includes trans-sending myelitis. Denies any fever, body aches, chills, or any other symptoms. He does have pain at his suprapubic catheter site and is requesting medication. - CONSTITUTIONAL Constitutional: DENIES: Fever, Chills - EENT EENT: DENIES: Sore Throat - NEURO Neurology: DENIES: Headache - CARDIOVASCULAR Cardiovascular: DENIES: Chest pain - RESPIRATORY Respiratory: DENIES: Coughing - GASTROINTESTINAL Gastrointestinal: REPORTS: Abdominal Pain - Specifically suprapubic site, Nausea. DENIES: Patient vomiting, Diarrhea - URINARY Urinary: DENIES: Dysuria - REPRODUCTIVE Reproductive: DENIES: : - MUSCULOSKELETAL Musculoskeletal: DENIES: Extremity pain - DERM Skin Color: Normal Skin Problems: None Past Medical History - General Information source: Patient - Social History Smoking Status: Current Every Day Smoker Family History: Reviewed & Not Pertinent, Hypertension Renal/ Medical History: Reports: Hx Kidney Stones. Denies: Hx Peritoneal Dialysis Psychiatric Medical History: Reports: Hx Bipolar Disorder, Hx Borderline Personality Disorder, Hx Depression Past Surgical History: Reports: Hx Cholecystectomy, Hx Genitourinary Surgery - Suprapubic catheter - Immunizations Immunizations up to date: Yes Hx Diphtheria, Pertussis, Tetanus Vaccination: Yes Vertical Provider Document - CONSTITUTIONAL Agree With Documented VS: Yes Exam Limitations: No Limitations General Appearance: No Apparent Distress - INFECTION CONTROL TRAVEL OUTSIDE OF THE [place] IN LAST 30 DAYS: No - HEENT HEENT: Atraumatic, Normocephalic - RESPIRATORY Respiratory: Breath Sounds Normal, No Respiratory Distress - CARDIOVASCULAR Cardiovascular: Regular Rhythm Pulses: Normal: Radial - GI/ABDOMEN Gastrointestinal: Abdomen Soft, Abdomen Tender - Only at suprapubic catheter site - MUSCULOSKELETAL/EXTREMETIES Musculoskeletal/Extremeties: FROM - NEURO Level of Consciousness: Awake, Alert, Appropriate Motor/Sensory: No Motor Deficit, No Sensory Deficit - DERM Integumentary: Warm, Dry Course - Re-evaluation Re-evalutation: 02/27/19 19:11 Patient will receive 4 mg of morphine here in the emergency department for his chronic suprapubic catheter pain. He will be sent home also with some Zofran because he does complain of some nausea. I do not suspect patient has a urinary tract infection, as he is being treated for one at this time. He is to follow- up with his primary care if he has any symptoms. Verbal discharge instructions were given to the patient. They verbalized understanding. They are stable for discharge. - Vital Signs Vital signs: Temp Pulse Resp BP Pulse Ox 98.1 F 96 18 147/97 H 97 02/27/19 17:49 02/27/19 17:49 02/27/19 17:49 02/27/19 17:49 02/27/19 17:49 Discharge - Discharge Clinical Impression: Chronic suprapubic catheter, Nausea, Chronic suprapubic pain Condition: Good Disposition: HOME, SELF-CARE Instructions: Antinausea Medication ([facility]) Additional Instructions: You were seen today in the emergency department for suprapubic catheter pain and needing to have your bag changed. The bag was changed here in the emergency department. You have also been given Zofran, medication for nausea. He can t glenn 1 tablet every 4-6 hours as needed for nausea. Please follow-up with your primary care provider within the next 3 to 5 days in regards to this visit. Referrals: DANIAL LABOY MD [Primary Care Provider] - Follow up in 3-5 days
[2019-02-27] MEDS ORDERED: MORPHINE SULFATE 10 MG/ML INJ IM ONE (19:09)
[2019-02-27 19:41] VITALS: BP 145/82
== END 2019-02-27 19:45 | disposition home or self-care (01) ==
LOC: ER 17:14
DX: T83.9XXA Unspecified complication of genitourinary prosthetic device, implant and graft, initial encounter (principal); R11.0 Nausea; R10.30 Lower abdominal pain, unspecified; F17.200 Nicotine dependence, unspecified, uncomplicated
CPT/HCPCS: 99283; 96372; J2270; A9270

== ENCOUNTER 2019-03-09 23:00 | Emergency (ER) | payer MEDICARE ==
[2019-03-09 23:32] VITALS: BP 140/72
[2019-03-10] MEDS ORDERED: NORMAL SALINE 500 ML IV ONE (00:46)
[2019-03-10] MEDS ORDERED: ONDANSETRON HCL INJ/PF 4 MG/2 ML SDV IV ONE (00:46)
--- NOTE | 2019-03-10 00:52 | ER Document Report ---
ED General - General Chief Complaint: Nausea/Vomiting/Diarrhea Stated Complaint: VOMITING.DIARRHEA Time Seen by Provider: 03/10/19 00:35 Primary Care Provider: DANIAL LABOY MD [Primary Care Provider] - Follow up as needed Notes: Patient is a pleasant 48-year-old male who presents with complaints of vomiting, diarrhea, right flank pain. He has a suprapubic catheter. He has this because he developed transverse myelitis after receiving vaccination a long time ago. He has frequent UTIs. He has not checked his temp at home but feels that he may have had fevers but she has had some alternating feelings of hot and cold. He is also had diarrhea that started today. He did recently finish a course of antibiotics for urinary tract infection. He is followed by urologist. He has no other complaints at this time. TRAVEL OUTSIDE OF THE [place] IN LAST 30 DAYS: No - Related Data Allergies/Adverse Reactions: No Known Allergies Allergy (Verified 02/27/19 17:16) Past Medical History - Social History Smoking Status: Unknown if Ever Smoked Frequency of alcohol use: None Drug Abuse: None Family History: Reviewed & Not Pertinent, Hypertension Renal/ Medical History: Reports: Hx Kidney Stones. Denies: Hx Peritoneal Dialysis Psychiatric Medical History: Reports: Hx Bipolar Disorder, Hx Borderline Personality Disorder, Hx Depression Past Surgical History: Reports: Hx Cholecystectomy, Hx Genitourinary Surgery - Suprapubic catheter - Immunizations Immunizations up to date: Yes Hx Diphtheria, Pertussis, Tetanus Vaccination: Yes Review of Systems - Review of Systems Notes: My Normal Review Basic REVIEW OF SYSTEMS: CONSTITUTIONAL : Denies fever, chills, or sweats. Denies recent illness. RESPIRATORY: Denies cough, cold, or chest congestion. Denies shortness of breath, difficulty breathing, or wheezing. GASTROINTESTINAL: Right flank pain. Vomiting. Diarrhea. GENITOURINARY: Suprapubic catheter. Catheter is been draining appropriately. MUSCULOSKELETAL: Denies neck or back pain or joint pain or swelling. SKIN: Denies rash or skin lesions. NEUROLOGICAL: Denies altered mental status or loss of consciousness. ALL OTHER SYSTEMS REVIEWED AND NEGATIVE. Physical Exam - Vital signs Vitals: Temp Pulse Resp BP Pulse Ox 98.2 F 82 22 H 140/72 H 98 03/09/19 23:31 03/09/19 23:31 03/09/19 23:31 03/09/19 23:31 03/09/19 23:31 - Notes Notes: General Appearance: Well nourished, alert, cooperative, no acute distress, no obvious discomfort. Not septic or toxic appearing. Vitals: reviewed, See vital signs table. Head: no swelling or tenderness to the head Eyes: PERRL, EOMI, Conjuctiva clear Mouth: No decreasd moisture Lungs: No wheezing, No rales, No rhonci, No accessory muscle use, good air exchange bilaterally. Heart: Normal rate, Regular rythm, No murmur, no rub Abdomen: Normal BS, soft, No rigidity, No reproducible abdominal tenderness or flank pain to palpation; however, patient has a history of decreased sensation inferior to the chest du to his history of transversse myelitis.,no reproducible abdominal or flank pain to palpation; however, patient says he has decreased sensation from the chest down due to previous history of transverse myelitis. transverse myelitis. previous history ofreproducible pain palpation of abdomen; however, patient says that he has very decreased sensation from the chest down to to his No reproducible abdominal tenderness or flank tenderness to palpation; however, patient says he has decreased sensation from the chest down to to previous history of transverse myelitis. No guarding, no rebound, no abdominal masses, no organomegaly. No abnormal redness or swelling around the location of suprapubic catheter. Extremities: good pulses in all extremities, no edema. Skin: warm, dry, appropriate color, no rash Neuro: speech clear, oriented x 3, normal affect, responds appropriately to questions. Course - Re-evaluation Re-evalutation: 03/10/19 02:35 Patient is afebrile here and has no leukocytosis. He is not septic or toxic ap pearing. He is well-appearing. Urinalysis does show large amount of white blood cells and nitrites however in reviewing his previous urinalysis this is a very common trend. He does have an indwelling suprapubic catheter. He only has trace bacteria and just recently finished a course of antibiotics. This is conjunction with the fact that he has diarrhea suggest that it may be better to hold off on starting him on antibiotic for UTI until urine cultures result something that is treatable. I will place him on Flagyl as patient has been on multiple courses of antibiotic as of recently and is now having diarrhea. We were unable to get a stool culture at this time to conform or deny that he has C. difficile and therefore we will go and treat him at this time. I explained this to the patient he is agreeable to it. I encouraged to follow-up closely with his urologist. I encouraged him return to ER immediately if he has fevers, vomiting, worsening diarrhea, or feels that he is worsening in any way. Patient agrees with plan will be discharged home. Dictation of this chart was performed using voice recognition software; therefore, there may be some unintended grammatical errors. - Vital Signs Vital signs: Temp Pulse Resp BP Pulse Ox 98.2 F 82 22 H 140/72 H 98 03/09/19 23:31 03/09/19 23:31 03/09/19 23:31 03/09/19 23:31 03/09/19 23:31 - Laboratory Result Diagrams: 03/10/19 01:33 03/10/19 01:33 Laboratory results interpreted by me: 03/10/19 03/10/19 01:29 01:33 Hgb 11.3 L Hct 35.4 L MCV 74 L MCH 23.6 L RDW 19.2 H Basophils % 2.1 H Urine Protein 100 H Urine Ketones TRACE H Urine Blood SMALL H Urine Nitrite POSITIVE H Urine Urobilinogen 4.0 H Ur Leukocyte Esterase LARGE H Discharge - Discharge Clinical Impression: Pyuria Diarrhea Qualifiers: Diarrhea type: unspecified type Qualified Code(s): R19.7 - Diarrhea, unspecified Condition: Good Disposition: HOME, SELF-CARE Additional Instructions: You have diarrhea which is concerning being that you have been on many courses of antibiotics recently. Is it possibly the diarrhea could be related to C. difficile and therefore we will place you on antibiotic called Flagyl which helps treat this. Your urine did show a large amount of white blood cells but only trace bacteria. We will send urine for culture. If it does grow out a treatable form of bacteria then we will call you with results. If you do not hear from us in 2 days and please call the culture callback number at [phone] for the results. Please follow-up with Dr. Laboy in 1 to 2 days for reevaluation. Also follow-up with urologist this week if you are able to. Return to the ER immediately if you have fevers, vomiting, worsening pain, or feel that you are worsening in any way. Prescriptions: Tramadol HCl [Ultram 50 mg Tablet] 50 mg PO Q6HP PRN #8 tablet PRN Reason: Metronidazole [Flagyl 500 mg Tablet] 500 mg PO Q8H #21 tablet Ondansetron [Zofran Odt 4 mg Tablet] 1 tab PO Q4H PRN #15 tab.rapdis PRN Reason: For Nausea/Vomiting Referrals: DANIAL LABOY MD [Primary Care Provider] - 03/12/19
[2019-03-10] MEDS ORDERED: MORPHINE SULFATE 10 MG/ML INJ IV ONE (01:55)
[2019-03-10 01:56] LABS: ABSOLUTE BASOPHILS # (AUTO) 0.2 10^3/uL (0.0-0.2); ABSOLUTE EOSINOPHILS # (AUTO) 0.4 10^3/uL (0.0-0.6); ABSOLUTE LYMPHOCYTES (AUTO) 1.9 10^3/uL (0.5-4.7); ABSOLUTE MONOCYTES (AUTO) 0.9 10^3/uL (0.1-1.4); ABSOLUTE NEUT (AUTO) 4.9 10^3/uL (1.7-8.2); BASOPHILS % (AUTO) 2.1 % (0-2); EOSINOPHILS % (AUTO) 4.8 % (0-6); HEMATOCRIT 35.4 % (37.9-51.0); HEMOGLOBIN 11.3 g/dL (13.5-17.0); LYMPHOCYTES % (AUTO) 22.8 % (13-45); MEAN CORPUSCULAR HEMOGLOBIN 23.6 pg (27.0-33.4); MEAN CORPUSCULAR VOLUME 74 fl (80-97); MONOCYTES % (AUTO) 10.5 % (3-13); PLATELET COUNT 362 10^3/uL (150-450); RED CELL DISTRIBUTION WIDTH 19.2 % (11.5-14.0); SEGMENTED NEUTROPHILS % (AUTO) 59.8 % (42-78); TOTAL CELLS COUNTED % (AUTO) 100 %; WHITE BLOOD COUNT 8.3 10^3/uL (4.0-10.5)
[2019-03-10 02:01] LABS: APPEARANCE,URINE CLOUDY; BILIRUBIN,URINE NEGATIVE (NEGATIVE); COLOR,URINE DARK YELLOW; GLUCOSE, URINE NEGATIVE (NEGATIVE); KETONES,URINE TRACE mg/dL (NEGATIVE); LEUKOCYTE ESTERASE,URINE LARGE (NEGATIVE); NITRITE,URINE POSITIVE (NEGATIVE); PROTEIN,URINE 100 mg/dL (NEGATIVE)
[2019-03-10] MEDS ORDERED: CEFTRIAXONE 1 GM/D5W RTU 1 GM/50 ML RTUPB IV ONE (02:02)
[2019-03-10 02:15] LABS: ANION GAP 6 (5-19); BLOOD UREA NITROGEN 8 mg/dL (7-20); CALCIUM 9.1 mg/dL (8.4-10.2); CARBON DIOXIDE 29 mmol/L (22-30); CHLORIDE 106 mmol/L (98-107); GLUCOSE 99 mg/dL (75-110); SODIUM 140.9 mmol/L (137-145)
[2019-03-10] MEDS ORDERED: ONDANSETRON 4 MG TAB.RAPDIS PO ONE (02:42)
[2019-03-10] MEDS ORDERED: METRONIDAZOLE 500 MG TABLET PO ONE (02:42)
== END 2019-03-10 03:24 | disposition home or self-care (01) ==
LOC: ER 23:00
DX: N39.0 Urinary tract infection, site not specified (principal); R19.7 Diarrhea, unspecified; R11.2 Nausea with vomiting, unspecified; R10.9 Unspecified abdominal pain
CPT/HCPCS: 99284; 96361; 96374; 96375; 36415; 87086; 85025; 87088; 80048; 81001; 87186; A9270 ×2; J2270; J2405; J7040; S0119

== ENCOUNTER 2019-03-16 11:29 | Emergency (ER) | payer MEDICARE ==
[2019-03-16 11:47] VITALS: BP 144/73
--- NOTE | 2019-03-16 12:31 | ER Document Report ---
HPI - HPI Time Seen by Provider: 03/16/19 12:09 Pain Level: 0 Context: Patient is a 48-year-old male with a chronic indwelling suprapubic catheter well-known to the emergency department who presents with needing his catheter bag replaced. He denies any fever, abdominal pain, or any symptoms at this time. He states that he does not know what the bag got caught on, but is requesting for the back to be replaced. He adamantly denies any symptoms. He actually states that he feels well. - CONSTITUTIONAL Constitutional: DENIES: Fever, Chills - URINARY Urinary: DENIES: Dysuria - needs leg bag replaced - REPRODUCTIVE Reproductive: DENIES: : - MUSCULOSKELETAL Musculoskeletal: DENIES: Extremity pain, Back Pain - DERM Skin Color: Normal Skin Problems: None Past Medical History - Social History Smoking Status: Unknown if Ever Smoked Family History: Reviewed & Not Pertinent, Hypertension Patient has suicidal ideation: No Patient has homicidal ideation: No Renal/ Medical History: Reports: Hx Kidney Stones. Denies: Hx Peritoneal Dialysis Psychiatric Medical History: Reports: Hx Bipolar Disorder, Hx Borderline Personality Disorder, Hx Depression Past Surgical History: Reports: Hx Cholecystectomy, Hx Genitourinary Surgery - Suprapubic catheter - Immunizations Immunizations up to date: Yes Hx Diphtheria, Pertussis, Tetanus Vaccination: Yes Vertical Provider Document - CONSTITUTIONAL Agree With Documented VS: Yes Exam Limitations: No Limitations General Appearance: No Apparent Distress - INFECTION CONTROL TRAVEL OUTSIDE OF THE [place] IN LAST 30 DAYS: No - HEENT HEENT: Atraumatic, Normocephalic - NECK Neck: Normal Inspection - RESPIRATORY Respiratory: Breath Sounds Normal, No Respiratory Distress - CARDIOVASCULAR Cardiovascular: Regular Rate, Regular Rhythm Pulses: Normal: Radial - GI/ABDOMEN Gastrointestinal: Abdomen Soft, Abdomen Non-Tender Notes: Chronic suprapubic catheter in place. - MUSCULOSKELETAL/EXTREMETIES Musculoskeletal/Extremeties: FROM - NEURO Level of Consciousness: Awake, Alert, Appropriate Motor/Sensory: No Motor Deficit, No Sensory Deficit - DERM Integumentary: Warm, Dry, No Rash Course - Re-evaluation Re-evalutation: 03/16/19 Patient has no complaints other than needing his suprapubic catheter changed here in the emergency department. I do not suspect the patient is septic. He denies any symptoms. Denies any abdominal pain, chest pain, suprapubic catheter site pain, fever, or any other symptoms. His bag was changed here in the emergency department. I have advised him to follow-up with his primary care provider to have his bags refilled so he can may be changed his own catheter bag sent home. He is in agreement with this plan. Verbal discharge instructions were given to the patient. They verbalized understanding. They are stable for discharge. - Vital Signs Vital signs: Temp Pulse Resp BP Pulse Ox 98.0 F 84 16 144/73 H 99 03/16/19 11:46 03/16/19 11:46 03/16/19 11:46 03/16/19 11:46 03/16/19 11:46 Discharge - Discharge Clinical Impression: Chronic suprapubic catheter Condition: Stable Disposition: HOME, SELF-CARE Additional Instructions: You were seen today in the emergency department to have your catheter bag replaced. It was replaced here in the emergency department. Please ask your primary care provider to see if you can get replacement bags at home from the medical supply store. If you develop a fever greater than 100.4 F, have abdominal pain, or have any symptoms that are worrisome to you, please return to the emergency department. Referrals: DANIAL LABOY MD [Primary Care Provider] - Follow up as needed
== END 2019-03-16 12:50 | disposition home or self-care (01) ==
LOC: ER 11:29
DX: T83.9XXA Unspecified complication of genitourinary prosthetic device, implant and graft, initial encounter (principal); X58.XXXA Exposure to other specified factors, initial encounter
CPT/HCPCS: 51702; 99283

== ENCOUNTER 2019-03-22 12:47 | Emergency (ER) | payer MEDICARE ==
[2019-03-22 12:56] VITALS: BP 151/87
[2019-03-22] MEDS ORDERED: ONDANSETRON 4 MG TAB.RAPDIS PO ONE (13:03)
--- NOTE | 2019-03-22 13:05 | ER Document Report ---
ED Medical Screen (RME) - General Chief Complaint: Nausea/Vomiting/Diarrhea Stated Complaint: NAUSEA,VOMITING,DIARRHEA Time Seen by Provider: 03/22/19 13:03 Primary Care Provider: DANIAL LABOY MD [Primary Care Provider] - Follow up as needed Mode of Arrival: Ambulatory Information source: Patient Notes: Patient is a 48-year-old male presenting with nausea, vomiting and diarrhea that is been ongoing for 2 days. Patient reports mild generalized abdominal pain. He states that he has a suprapubic catheter, he states this is draining well and without any difficulties. He denies any fever. He states that he recently finished a round of Flagyl for C. difficile. Exam: Abdomen soft, nontender. I have greeted and performed a rapid initial assessment of this patient. A comprehensive ED assessment and evaluation of the patient, analysis of test results and completion of the medical decision making process will be conducted by additional ED providers. Dictation of this chart was performed using voice recognition software; therefore, there may be some unintended grammatical errors. TRAVEL OUTSIDE OF THE [place] IN LAST 30 DAYS: No - Related Data Allergies/Adverse Reactions: No Known Allergies Allergy (Verified 03/22/19 12:47) Past Medical History - Social History Family history: Reviewed & Not Pertinent Renal/ Medical History: Reports: Hx Kidney Stones. Denies: Hx Peritoneal Dialysis Psychiatric Medical History: Reports: Hx Bipolar Disorder, Hx Borderline Personality Disorder, Hx Depression Past Surgical History: Reports: Hx Cholecystectomy, Hx Genitourinary Surgery - Suprapubic catheter - Immunizations Immunizations up to date: Yes Hx Diphtheria, Pertussis, Tetanus Vaccination: Yes History of Influenza Vaccine for 08/2017 - 01/2018 Season: Unknown Physical Exam - Vital signs Vitals: Temp Pulse Resp BP Pulse Ox 98.3 F 99 16 151/87 H 98 03/22/19 12:54 03/22/19 12:54 03/22/19 12:54 03/22/19 12:54 03/22/19 12:54 Course - Vital Signs Vital signs: Temp Pulse Resp BP Pulse Ox 98.3 F 99 16 151/87 H 98 03/22/19 12:54 03/22/19 12:54 03/22/19 12:54 03/22/19 12:54 03/22/19 12:54 Doctor's Discharge - Discharge Referrals: DANIAL LABOY MD [Primary Care Provider] - Follow up as needed
[2019-03-22 13:27] LABS: ABSOLUTE BASOPHILS # (AUTO) 0.1 10^3/uL (0.0-0.2); ABSOLUTE EOSINOPHILS # (AUTO) 0.3 10^3/uL (0.0-0.6); ABSOLUTE LYMPHOCYTES (AUTO) 1.3 10^3/uL (0.5-4.7); ABSOLUTE NEUT (AUTO) 7.5 10^3/uL (1.7-8.2); BASOPHILS % (AUTO) 1.3 % (0-2); EOSINOPHILS % (AUTO) 2.8 % (0-6); HEMATOCRIT 39.9 % (37.9-51.0); HEMOGLOBIN 12.4 g/dL (13.5-17.0); LYMPHOCYTES % (AUTO) 12.5 % (13-45); MEAN CORPUSCULAR HEMOGLOBIN 22.9 pg (27.0-33.4); MEAN CORPUSCULAR HGB CONC 31.1 g/dL (32.0-36.0); MEAN CORPUSCULAR VOLUME 74 fl (80-97); PLATELET COUNT 380 10^3/uL (150-450); RED BLOOD COUNT 5.41 10^6/uL (4.35-5.55); RED CELL DISTRIBUTION WIDTH 20.4 % (11.5-14.0); SEGMENTED NEUTROPHILS % (AUTO) 73.4 % (42-78); TOTAL CELLS COUNTED % (AUTO) 100 %; WHITE BLOOD COUNT 10.2 10^3/uL (4.0-10.5)
[2019-03-22 13:45] LABS: ALANINE AMINOTRANSFERASE 34 U/L (21-72); ALBUMIN 3.9 g/dL (3.5-5.0); ALKALINE PHOSPHATASE 63 U/L (38-126); ANION GAP 9 (5-19); ASPARTATE AMINO TRANSFERASE 28 U/L (17-59); BILIRUBIN,DIRECT 0.2 mg/dL (0.0-0.4); BILIRUBIN,TOTAL 0.6 mg/dL (0.2-1.3); BLOOD UREA NITROGEN 8 mg/dL (7-20); CALCIUM 9.4 mg/dL (8.4-10.2); CARBON DIOXIDE 26 mmol/L (22-30); CHLORIDE 104 mmol/L (98-107); POTASSIUM 4.2 mmol/L (3.6-5.0); SODIUM 139.2 mmol/L (137-145); TOTAL PROTEIN 6.5 g/dL (6.3-8.2)
[2019-03-22 13:47] LABS: GLUCOSE 67 mg/dL (75-110)
[2019-03-22] MEDS ORDERED: DICYCLOMINE HCL INJ 20 MG/2 ML AMPULE IM ONE (14:28)
--- NOTE | 2019-03-22 14:43 | ER Document Report ---
ED General - General Chief Complaint: Nausea/Vomiting/Diarrhea Stated Complaint: NAUSEA,VOMITING,DIARRHEA Time Seen by Provider: 03/22/19 13:03 Primary Care Provider: DANIAL LABOY MD [Primary Care Provider] - Follow up as needed Mode of Arrival: Ambulatory TRAVEL OUTSIDE OF THE [place] IN LAST 30 DAYS: No - HPI Notes: Patient is a 48-year-old male who presents emergency department for evaluation of nausea, vomiting, diarrhea. He has had symptoms for 2 days. He states he was recently treated for C. difficile colitis, although it was empirically, he did not have a positive C. difficile toxin. He states he was treated with Flagyl. No fevers. He describes generalized cramping abdominal pain. Emesis is nonbloody, nonbilious. He has had 4 episodes in the last 24 hours. Diarrhea is all water, he denies any hematochezia or melena. - Related Data Allergies/Adverse Reactions: No Known Allergies Allergy (Verified 03/22/19 12:47) Past Medical History - General Information source: Patient - Social History Smoking Status: Never Smoker Chew tobacco use (# tins/day): No Frequency of alcohol use: Rare Drug Abuse: None Family History: Reviewed & Not Pertinent, Hypertension Patient has suicidal ideation: No Patient has homicidal ideation: No Neurological Medical History: Reports: Other - Transverse myelitis Renal/ Medical History: Reports: Hx Kidney Stones. Denies: Hx Peritoneal Dialysis Psychiatric Medical History: Reports: Hx Bipolar Disorder, Hx Borderline Pe rsonality Disorder, Hx Depression Past Surgical History: Reports: Hx Cholecystectomy, Hx Genitourinary Surgery - Suprapubic catheter - Immunizations Immunizations up to date: Yes Hx Diphtheria, Pertussis, Tetanus Vaccination: Yes Review of Systems - Review of Systems Constitutional: No symptoms reported EENT: No symptoms reported Cardiovascular: No symptoms reported Respiratory: No symptoms reported Gastrointestinal: See HPI Genitourinary: No symptoms reported Musculoskeletal: No symptoms reported Skin: No symptoms reported Neurological/Psychological: No symptoms reported Physical Exam - Vital signs Vitals: Temp Pulse Resp BP Pulse Ox 98.3 F 99 16 151/87 H 98 03/22/19 12:54 03/22/19 12:54 03/22/19 12:54 03/22/19 12:54 03/22/19 12:54 - Notes Notes: Vital signs reviewed, please refer to chart. Head is normocephalic, atraumatic. Pupils equal round, reactive to light. Neck is supple without meningismus. Heart is regular rate and rhythm. Lungs are clear to auscultation bilaterally. Abdomen is soft, nontender, normoactive bowel sounds throughout. Extremities without cyanosis, clubbing. Posterior calves are nontender. Peripheral pulses are equal. Skin is warm and dry. Patient is awake, alert, cooperative with examiner. Course - Re-evaluation Re-evalutation: 03/22/19 14:42 Patient presents emergency department for evaluation. He had initial orders as placed through triage. He was continued to complain of pain, I did again treat him with some IM Bentyl. His blood sugar was found to be low, but he remained awake and alert. He was given sips of apple juice. Awaiting urinalysis, will continue to follow. 03/22/19 16:36 Patient continued to complain of pain. - Vital Signs Vital signs: Temp Pulse Resp BP Pulse Ox 98.3 F 99 16 151/87 H 98 03/22/19 12:54 03/22/19 12:54 03/22/19 12:54 03/22/19 12:54 03/22/19 12:54 - Laboratory Result Diagrams: 03/22/19 13:07 03/22/19 13:07 Laboratory results interpreted by me: 03/22/19 03/22/19 03/22/19 13:07 13:07 13:32 Hgb 12.4 L MCV 74 L MCH 22.9 L MCHC 31.1 L RDW 20.4 H Lymphocytes % 12.5 L Glucose 67 L Urine Protein 100 H Urine Glucose (UA) >=500 H Urine Ketones TRACE H Urine Nitrite POSITIVE H Urine Urobilinogen 2.0 H Ur Leukocyte Esterase LARGE H Discharge - Discharge Clinical Impression: UTI (urinary tract infection), Chronic suprapubic catheter, Nausea and vomiting, Diarrhea Condition: Stable Disposition: HOME, SELF-CARE Instructions: Antinausea Medication ([facility]), Cephalexin ([facility]), Urinary Tract Infection ([facility]), Viral Syndrome ([facility]), Vomiting ([facility]), Diarrhea, Nonspecific ([facility]) Additional Instructions: Take medication as prescribed. Follow-up with your doctor next week. Return to the emergency department with worsening or new concerning symptoms. Prescriptions: Cephalexin Monohydrate [Keflex 500 mg Capsule] 500 mg PO Q6H 5 Days capsule Cephalexin Monohydrate [Keflex 500 mg Capsule] 500 mg PO Q6H #40 capsule Ondansetron [Zofran Odt 4 mg Tablet] 1 tab PO Q4H PRN #15 tab.rapdis PRN Reason: For Nausea/Vomiting Ondansetron [Zofran Odt 4 mg Tablet] 1 tab PO Q4H PRN #15 tab.rapdis PRN Reason: For Nausea/Vomiting Referrals: DANIAL LABOY MD [Primary Care Provider] - Follow up as needed
[2019-03-22] MEDS ORDERED: KETOROLAC TROMETHAMINE 60 MG/2 ML SDV IM ONE (16:03)
[2019-03-22 16:51] LABS: AMORPHOUS SEDIMENT,URINE TRACE /HPF; APPEARANCE,URINE CLOUDY; BILIRUBIN,URINE NEGATIVE (NEGATIVE); COLOR,URINE AMBER; GLUCOSE, URINE >=500 mg/dL (NEGATIVE); KETONES,URINE TRACE mg/dL (NEGATIVE); LEUKOCYTE ESTERASE,URINE LARGE (NEGATIVE); NITRITE,URINE POSITIVE (NEGATIVE); PROTEIN,URINE 100 mg/dL (NEGATIVE); URINE SPECIFIC GRAVITY 1.023
[2019-03-22] MEDS ORDERED: OXYBUTYNIN CHLORIDE 5 MG TABLET PO ONE (17:45)
[2019-03-22] MEDS ORDERED: CEPHALEXIN 500 MG CAPSULE PO ONE (17:48)
[2019-03-22] MEDS ORDERED: ONDANSETRON ODT 4 MG TAB (6 TAB/ER DISP) PO PRN (18:39)
== END 2019-03-22 18:43 | disposition home or self-care (01) ==
LOC: ER 12:47
DX: N39.0 Urinary tract infection, site not specified (principal); R11.2 Nausea with vomiting, unspecified; R19.7 Diarrhea, unspecified; R10.84 Generalized abdominal pain
CPT/HCPCS: 99284; 96372; 36415; 87086; 85025; 87088; 80053; 81001; 87186; A9270 ×4; J0500; J1885; S0119

== ENCOUNTER 2019-03-29 06:08 | Emergency (ER) | payer MEDICARE ==
[2019-03-29] MEDS ORDERED: ASPIRIN 81 MG TABLET, CHEWABLE PO ONE (06:41)
--- NOTE | 2019-03-29 06:48 | ER Document Report ---
ED Cardiac - General TRAVEL OUTSIDE OF THE [place] IN LAST 30 DAYS: No <GABBIE REYES - Last Filed: 03/29/19 08:48> - General Mode of Arrival: Ambulatory Information source: Patient <AKASH HEMPHILL Dell - Last Filed: 03/29/19 19:43> - General Chief Complaint: Chest Pain > 30 Stated Complaint: CHEST PAIN Time Seen by Provider: 03/29/19 06:30 Primary Care Provider: DANIAL LABOY MD [Primary Care Provider] - Follow up as needed Notes: Patient is a 48-year-old male, well-known to this emergency department who presents the emergency department with a chief complaint of chest pain. He states that the pain is in the middle of his chest and radiates down his left a rm. His symptoms started an hour and a half prior to arrival. The pain is primarily in the middle of his chest. He states it comes and goes. Patient states that he has also been under a lot of stress, as his friend recently went into cardiac arrest. He also admits to lifting furniture 2 days ago. Patient has a past medical history of transverse myelitis from the influenza vaccine. He also does have a chronic suprapubic catheter in place. Denies smoking, drinking, and illicit drug use. (GABBIE REYES) - Related Data Allergies/Adverse Reactions: No Known Allergies Allergy (Verified 03/22/19 12:47) Past Medical History - Social History Family History: Reviewed & Not Pertinent, Hypertension Renal/ Medical History: Reports: Hx Kidney Stones. Denies: Hx Peritoneal Dialysis Psychiatric Medical History: Reports: Hx Bipolar Disorder, Hx Borderline Personality Disorder, Hx Depression Past Surgical History: Reports: Hx Cholecystectomy, Hx Genitourinary Surgery - Suprapubic catheter - Immunizations Immunizations up to date: Yes Hx Diphtheria, Pertussis, Tetanus Vaccination: Yes <GABBIE REYES - Last Filed: 03/29/19 08:48> - General Information source: Patient - Social History Smoking Status: Former Smoker Frequency of alcohol use: Social Drug Abuse: None Family History: None, Hypertension <JOBYAKASH C - Last Filed: 03/29/19 19:43> Review of Systems <GABBIE REYES - Last Filed: 03/29/19 08:48> - Review of Systems Notes: REVIEW OF SYSTEMS: CONSTITUTIONAL : Denies recent illness. Denies recent unintentional weight loss. Denies fever, chills, or sweats. EENT: Denies eye, ear, throat, or mouth pain, discharge, or symptoms. Denies nasal or sinus congestion. CARDIOVASCULAR: See HPI RESPIRATORY: Denies shortness of breath, cough, congestion, difficulty breathing, or wheezing. GASTROINTESTINAL: Denies nausea, vomiting, and diarrhea. Denies abdominal pain. Denies constipation. GENITOURINARY: Denies difficulty urinating, burning, blood in urine, urgency or frequency. MUSCULOSKELETAL: Denies neck and back pain. Denies joint pain or swelling. SKIN: Denies rash, itchiness, or lesions HEMATOLOGIC : Denies easy bruising or bleeding. LYMPHATIC: Denies swollen, painful, enlarged glands. NEUROLOGICAL: Denies no numbness or tingling denies weakness. Denies headache. Denies altered mental status. Denies alteration in speech. PSYCHIATRIC: Denies stress, anxiety, alteration in sleep patterns, or depression. All other systems reviewed and negative. (GABBIE REYES) Physical Exam <GABBIE REYES - Last Filed: 03/29/19 08:48> - Vital signs Vitals: Temp Pulse Resp BP Pulse Ox 97.7 F 85 16 142/70 H 97 03/29/19 06:09 03/29/19 06:09 03/29/19 06:09 03/29/19 06:09 03/29/19 06:09 - Notes Notes: PHYSICAL EXAMINATION: GENERAL: Appears well, disheveled, well-nourished, no acute distress. HEAD: Normocephalic, atraumatic. EYES: PERRL, conjunctiva normal, all extraocular movements intact, sclera non icteric ENT: Moist mucous membranes. NECK: Supple, no noticeable swelling, redness, rash. Normal range of motion. LUNGS: Equal breath sounds bilaterally and clear to auscultation. No wheezes ra les or rhonchi. CARDIOVASCULAR: S1-S2, regular rate, regular rhythm. Radial pulses 2+, normal. ABDOMEN: Normoactive bowel sounds. Soft, nontender, no guarding, no rebound tenderness, and no masses palpated. EXTREMITIES: Normal strength and range of motion, no pitting or edema. No cyanosis. NEUROLOGICAL: Moves all extremities upon command. Strength 5/5 in all extremities. PSYCH: Normal mood, normal affect. SKIN: Warm, dry. No rash, lesions, ulcerations noted. Normal skin turgor. (AMYGABBIE Gauthier) Course - Laboratory Result Diagrams: 03/29/19 06:38 <GABBIE REYES - Last Filed: 03/29/19 08:48> - Laboratory Result Diagrams: 03/29/19 06:38 03/29/19 06:38 <AKASH HEMPHILL - Last Filed: 03/29/19 19:43> - Re-evaluation Re-evalutation: 03/29/19 06:53 CBC, CMP, troponin, chest x-ray, and of the labs to be obtained. Patient will receive Zofran for his nausea and aspirin for his chest pain. Patient's chest pain is reproducible upon palpation. 03/29/19 07:30 Although the patient has not had his aspirin for very long, he states that he is still in pain. He will receive morphine IM. 03/29/19 07:52 Patient's chest x-ray is normal. His troponin is negative at this time. Patient's CK is 330, I suspect this is due to him chronically being dehydrated. 03/29/19 08:30 Bedside report was given to DAPHNEY Nguyen. Second troponin has been ordered . (AMYGABBIE Gauthier) 03/29/19 09:39 I assumed care of this patient at 0815. At that time he is currently denying any chest pain. Since then he has called out asking for pain medication. 15 mg of Toradol IV was ordered. Patient will be held over for repeat troponin which will be due at noon. Patient updated on plan of care and is agreeable to same. Patient currently resting in his room, heart rate 69, sinus rhythm, blood pressure 118/51, respiratory rate 15, pulse ox 96% on room air. Patient is in no acute distress at this time. 03/29/19 10:07 Contacted hospitalist and spoke with Essence Gómez NP for possible ACS rule out admission. She will come down here and evaluate the patient. Hospitalist does not feel patient meets admission criteria. Patient now reporting that he feels his pain is more due to his anxiety and the fact that he has not taken his Xanax. Repeat troponin was negative. Nurse michelle this early. This was supposed to be drawn at 12:00 noon. We will repeat troponin at that time and if negative patient will be discharged home. 12:00 troponin is negative. Patient sitting up eating lunch, patient has denied any chest pain. Encourage patient to follow-up with primary care early next week, return sooner if chest pain returns. (AKASH HEMPHILL) - Vital Signs Vital signs: Temp Pulse Resp BP Pulse Ox 97.7 F 73 18 108/81 99 03/29/19 06:09 03/29/19 10:27 03/29/19 13:24 03/29/19 13:24 03/29/19 13:24 - Laboratory Laboratory results interpreted by me: 03/29/19 03/29/19 06:38 06:38 Hgb 10.9 L Hct 34.5 L MCV 73 L MCH 23.1 L MCHC 31.5 L RDW 21.0 H Plt Count 473 H Magnesium 2.4 H Creatine Kinase 330 H Total Protein 6.0 L Albumin 3.4 L - EKG Interpretation by Me Additional EKG results interpreted by me: 03/29/19 06:55 Sinus rhythm. Rate 81. TX 140; RS 126; QT 384; QTc [address] elevations or depressions noted. No significant change from previous EKG dated 01/24/2019. (GABBIE REYES) Discharge <GABBIE REYES - Last Filed: 03/29/19 08:48> <AKASH HEMPHILL - Last Filed: 03/29/19 19:43> - Discharge Clinical Impression: Chest pain Condition: Stable Disposition: HOME, SELF-CARE Additional Instructions: You were seen today for chest pain. The exact cause of your pain is unclear. However, based on your cardiac enzyme testing, chest x-ray, and EKG it does not appear that it is from an immediately life-threatening cause at this time. Although your testing here is normal is critical that you follow-up with your primary care physician for continued evaluation of this chest pain and possible stress testing. I recommended you see your physician within the next 24-48 hours to be evaluated for consideration of a stress test. Please return to emergency department immediately if you have worsening of your chest pain, shortness of breath, vomiting, become unable to exert yourself due to pain or difficulty breathing, you pass out, or have any pain that radiates into your arms, jaw, or back. Please also return if you have any additional symptoms that are concerning to you. Referrals: DANIAL LABOY MD [Primary Care Provider] - Follow up as needed
[2019-03-29] MEDS ORDERED: ONDANSETRON HCL INJ/PF 4 MG/2 ML SDV IV ONE (06:49)
[2019-03-29 07:16] LABS: ALANINE AMINOTRANSFERASE 34 U/L (21-72); ALBUMIN 3.4 g/dL (3.5-5.0); ALKALINE PHOSPHATASE 61 U/L (38-126); ANION GAP 10 (5-19); ASPARTATE AMINO TRANSFERASE 29 U/L (17-59); BILIRUBIN,DIRECT 0.3 mg/dL (0.0-0.4); BILIRUBIN,TOTAL 0.6 mg/dL (0.2-1.3); BLOOD UREA NITROGEN 7 mg/dL (7-20); CARBON DIOXIDE 25 mmol/L (22-30); CHLORIDE 105 mmol/L (98-107); CREATINE KINASE 330 U/L (55-170); GLUCOSE 106 mg/dL (75-110); POTASSIUM 4.2 mmol/L (3.6-5.0); SODIUM 139.9 mmol/L (137-145)
[2019-03-29] MEDS ORDERED: MORPHINE SULFATE 10 MG/ML INJ IV ONE (07:16)
[2019-03-29] MEDS ORDERED: MORPHINE SULFATE 10 MG/ML INJ IM ONE (07:18)
[2019-03-29 07:24] LABS: CREATINE KINASE MB 4.21 ng/mL (<4.55)
[2019-03-29 07:29] LABS: TROPONIN I < 0.012 ng/mL
--- NOTE | 2019-03-29 07:43 | RADIOLOGY REPORT (SQ) ---
EXAM DESCRIPTION: XR CHEST 1 VIEW COMPLETED DATE/TME: 03/29/2019 06:41 CLINICAL HISTORY: chest pain COMPARISON: 11/20/2018 FINDINGS: Single frontal view of the chest. Cardiomediastinal silhouette: Normal size and contour. Lungs: No consolidation, pneumothorax, or pleural effusion. Low lung volumes. Leads overlie the chest. Bones: Postoperative change of the cervical spine. Upper abdomen: No abnormality identified. IMPRESSION: 1. No acute pulmonary process identified.
--- NOTE | 2019-03-29 08:44 | EKG REPORT ---
SEVERITY:- ABNORMAL ECG - SINUS RHYTHM IVCD, CONSIDER ATYPICAL RBBB : Confirmed by: Marco Lux MD 29-Mar-2019 08:41:48
[2019-03-29 09:01] LABS: ABSOLUTE BASOPHILS # (AUTO) 0.1 10^3/uL (0.0-0.2); ABSOLUTE EOSINOPHILS # (AUTO) 0.3 10^3/uL (0.0-0.6); ABSOLUTE LYMPHOCYTES (AUTO) 1.3 10^3/uL (0.5-4.7); ABSOLUTE MONOCYTES (AUTO) 0.8 10^3/uL (0.1-1.4); ABSOLUTE NEUT (AUTO) 6.2 10^3/uL (1.7-8.2); BASOPHILS % (AUTO) 1.3 % (0-2); EOSINOPHILS % (AUTO) 2.9 % (0-6); HEMATOCRIT 34.5 % (37.9-51.0); HEMOGLOBIN 10.9 g/dL (13.5-17.0); LYMPHOCYTES % (AUTO) 14.8 % (13-45); MEAN CORPUSCULAR HEMOGLOBIN 23.1 pg (27.0-33.4); MEAN CORPUSCULAR HGB CONC 31.5 g/dL (32.0-36.0); MEAN CORPUSCULAR VOLUME 73 fl (80-97); MONOCYTES % (AUTO) 9.1 % (3-13); PLATELET COUNT 473 10^3/uL (150-450); RED BLOOD COUNT 4.71 10^6/uL (4.35-5.55); SEGMENTED NEUTROPHILS % (AUTO) 71.9 % (42-78); TOTAL CELLS COUNTED % (AUTO) 100 %; WHITE BLOOD COUNT 8.6 10^3/uL (4.0-10.5)
[2019-03-29] MEDS ORDERED: KETOROLAC TROMETHAMINE INJ/PF 30 MG/1 ML SDV IV ONE (09:13)
[2019-03-29] MEDS ORDERED: ALPRAZOLAM 0.5 MG TABLET PO ONE (11:02)
[2019-03-29 13:47] VITALS: BP 108/81
== END 2019-03-29 14:38 | disposition home or self-care (01) ==
LOC: ER 06:08
DX: R07.9 Chest pain, unspecified (principal); Z87.891 Personal history of nicotine dependence; R11.0 Nausea
CPT/HCPCS: 93005; 99285; 96372; 96374; 96375; 36415; 82553; 82550; 83735; 85025; 80053; 84484; 71045; 93010; A9270 ×2; J2270; J1885; J2405

== ENCOUNTER 2019-04-02 17:30 | Emergency (ER) | payer MEDICARE ==
[2019-04-02] MEDS ORDERED: KETOROLAC TROMETHAMINE 60 MG/2 ML SDV IM ONE (18:36)
[2019-04-02] MEDS ORDERED: ONDANSETRON 4 MG TAB.RAPDIS PO ONE (18:36)
--- NOTE | 2019-04-02 18:38 | ER Document Report ---
ED Medical Screen (RME) - General Chief Complaint: Blood in Catheter Stated Complaint: BLOOD URINE Time Seen by Provider: 04/02/19 18:28 Primary Care Provider: DANIAL LABOY MD [Primary Care Provider] - Follow up as needed TRAVEL OUTSIDE OF THE [place] IN LAST 30 DAYS: No - HPI Notes: 04/02/19 18:37 Patient is a 48-year-old male who presents complaining of issues with his leg ba g as it may be leaking as well as noticing hematuria today. Patient has had nausea, vomiting, diarrhea, and intermittent generalized abdominal discomfort. Patient is currently on Bactrim for UTI from a visit 4 days ago. Denies LOPEZ, fever, neck pain, URI, CP, SOB, or rash. I have treated and performed a rapid initial assessment of this patient. A comprehensive ED assessment and evaluation of the patient, analysis of test results and completion of medical decision making process will be conducted by additional ED providers. PHYSICAL EXAMINATION: GENERAL: Well-appearing, well-nourished and in no acute distress. A&Ox4. Answers questions appropriately. LUNGS: Breath sounds clear to auscultation bilaterally and equal. No wheezes rales or rhonchi. HEART: Regular rate and rhythm without murmurs, rubs, gallops. - Related Data Allergies/Adverse Reactions: No Known Allergies Allergy (Verified 04/02/19 17:31) Past Medical History - Social History Family history: Reviewed & Not Pertinent Renal/ Medical History: Reports: Hx Kidney Stones. Denies: Hx Peritoneal Dialysis Psychiatric Medical History: Reports: Hx Bipolar Disorder, Hx Borderline Personality Disorder, Hx Depression Past Surgical History: Reports: Hx Cholecystectomy, Hx Genitourinary Surgery - Suprapubic catheter - Immunizations Immunizations up to date: Yes Hx Diphtheria, Pertussis, Tetanus Vaccination: Yes History of Influenza Vaccine for 08/2017 - 01/2018 Season: Unknown Physical Exam - Vital signs Vitals: Temp Pulse Resp BP Pulse Ox 97.7 F 88 18 145/78 H 98 04/02/19 17:37 04/02/19 17:37 04/02/19 17:37 04/02/19 17:37 04/02/19 17:37 Course - Vital Signs Vital signs: Temp Pulse Resp BP Pulse Ox 97.7 F 88 18 145/78 H 98 04/02/19 17:37 04/02/19 17:37 04/02/19 17:37 04/02/19 17:37 04/02/19 17:37 Doctor's Discharge - Discharge Referrals: DANIAL LABOY MD [Primary Care Provider] - Follow up as needed
[2019-04-02 20:04] LABS: HEMOGLOBIN 11.7 g/dL (13.5-17.0); MEAN CORPUSCULAR HEMOGLOBIN 23.4 pg (27.0-33.4); MEAN CORPUSCULAR HGB CONC 31.5 g/dL (32.0-36.0); MEAN CORPUSCULAR VOLUME 74 fl (80-97); PLATELET COUNT 554 10^3/uL (150-450); RED BLOOD COUNT 4.98 10^6/uL (4.35-5.55); RED CELL DISTRIBUTION WIDTH 21.7 % (11.5-14.0); WHITE BLOOD COUNT 9.2 10^3/uL (4.0-10.5)
[2019-04-02 20:15] LABS: ALANINE AMINOTRANSFERASE 35 U/L (21-72); ALBUMIN 3.5 g/dL (3.5-5.0); ALKALINE PHOSPHATASE 69 U/L (38-126); ANION GAP 10 (5-19); ASPARTATE AMINO TRANSFERASE 29 U/L (17-59); BILIRUBIN,DIRECT 0.2 mg/dL (0.0-0.4); BILIRUBIN,TOTAL 0.7 mg/dL (0.2-1.3); BLOOD UREA NITROGEN 9 mg/dL (7-20); CALCIUM 9.3 mg/dL (8.4-10.2); CARBON DIOXIDE 26 mmol/L (22-30); CHLORIDE 103 mmol/L (98-107); GLUCOSE 83 mg/dL (75-110); LIPASE 121.5 U/L (23-300); POTASSIUM 4.6 mmol/L (3.6-5.0); SODIUM 138.7 mmol/L (137-145); TOTAL PROTEIN 6.3 g/dL (6.3-8.2)
[2019-04-02 20:55] LABS: ABSOLUTE LYMPHOCYTES# (MANUAL) 1.6 10^3/uL (0.5-4.7); ABSOLUTE MONOCYTES # (MANUAL) 0.4 10^3/uL (0.1-1.4); ABSOLUTE NEUTROPHILS# (MANUAL) 7.2 10^3/uL (1.7-8.2); BASOPHILS % (MANUAL) 1 % (0-2); EOSINOPHILS % (MANUAL) 0 % (0-6); LYMPHOCYTES % (MANUAL) 17 % (13-45); MONOCYTES % (MANUAL) 4 % (3-13); SEGMENTED NEUTROPHILS % (MAN) 78 % (42-78); TOTAL CELLS COUNTED 100
[2019-04-02 21:02] LABS: ANISOCYTOSIS 3+; OVALOCYTES 1+; POLYCHROMASIA SLIGHT; TARGET CELLS 1+
[2019-04-02 21:03] LABS: PLATELET COMMENT INCREASED; POIKILOCYTOSIS 1+
[2019-04-02] MEDS ORDERED: HYDROCODONE/ACETAMINOPHEN 5-325 MG TABLET PO ONE (23:32)
[2019-04-02] MEDS ORDERED: PROMETHAZINE HCL 25 MG TABLET PO ONE (23:32)
[2019-04-03] MEDS ORDERED: HYDROCODONE/ACETAMINOPHEN 5-325 MG (6 TAB/ER DISP) PO PRN (00:27)
--- NOTE | 2019-04-03 00:28 | ER Document Report ---
ED General - General Chief Complaint: Blood in Catheter Stated Complaint: BLOOD URINE Time Seen by Provider: 04/02/19 18:28 Primary Care Provider: DANIAL LABOY MD [Primary Care Provider] - Follow up in 3-5 days Notes: Patient is a 48-year-old male with history of transverse myelitis, and suprapubic catheter and frequent urinary tract infections that presents to the emergency department for chief complaint of hematuria, and suprapubic abdominal pain. Patient is well-known to this emergency department, and to myself, he is seen frequently, for urinary tract infections and pain related to his suprapubic catheter. Patient goes multi drug resistant organisms, most recently was placed on Bactrim, which he still has several days left in the prescription. He noticed blood in the catheter bag today, and was having abdominal pain which he currently rates as a 6 out of 10 describes it as an aching and spasm type pain so he decided come to the emergency department to be reevaluated. He denies any fevers, chills, night sweats, chest pain, shortness of breath or difficulty breathing, he states overall he is feeling well yesterday, he was just concerned about the bleeding and possible pus drainage from his catheter and thinks it may need exchanged. Past Medical History: Transverse myelitis, with incomplete paraplegia, bipolar disorder, schizophrenia Past Surgical History: Suprapubic catheter placement, cholecystectomy Social History: Former smoker, denies current alcohol or drug use. Family History: Reviewed and noncontributory for presenting illness Allergies: Reviewed, see documented allergy list. REVIEW OF SYSTEMS: Other than noted above, the 12 point review of systems was reviewed with the patient and were negative, all pertinent findings are included in the HPI. PHYSICAL EXAMINATION: Vital signs reviewed, nursing noted reviewed. GENERAL: Patient appears uncomfortable, but in no acute distress HEAD: Atraumatic, normocephalic. EYES: Eyes appear normal, extraocular movements intact, sclera anicteric, conjunctiva are normal. ENT: nares patent, oropharynx clear without exudates. Moist mucous membranes. NECK: Normal range of motion, supple without lymphadenopathy LUNGS: Breath sounds clear to auscultation bilaterally and equal. No wheezes rales or rhonchi. HEART: Regular rate and rhythm without murmurs ABDOMEN: Suprapubic catheter in place, no pus drainage from the site of the catheter, there blood-tinged urine noted in the catheter bag, mild tenderness to palpation around the area of the catheter, no rebound, guarding, distention or rigidity. EXTREMITIES: Nontender, good range of motion, no pitting or edema. NEUROLOGICAL: Moves all extremities spontaneously Motor and sensory grossly intact on exam. Patient's lower extremity muscular motor strength is at baseline, as a sensation, from his history of transverse myelitis. PSYCH: Normal mood, normal affect. SKIN: Warm, Dry, normal turgor, no rashes or lesions noted on exposed skin TRAVEL OUTSIDE OF THE [place] IN LAST 30 DAYS: No - Related Data Allergies/Adverse Reactions: No Known Allergies Allergy (Verified 04/02/19 17:31) Past Medical History - Social History Smoking Status: Former Smoker Family History: None, Hypertension Patient has suicidal ideation: No Patient has homicidal ideation: No Renal/ Medical History: Reports: Hx Kidney Stones. Denies: Hx Peritoneal Dialysis Psychiatric Medical History: Reports: Hx Bipolar Disorder, Hx Borderline Personality Disorder, Hx Depression Past Surgical History: Reports: Hx Cholecystectomy, Hx Genitourinary Surgery - Suprapubic catheter - Immunizations Immunizations up to date: Yes Hx Diphtheria, Pertussis, Tetanus Vaccination: Yes Physical Exam - Vital signs Vitals: Temp Pulse Resp BP Pulse Ox 97.7 F 88 18 145/78 H 98 04/02/19 17:37 04/02/19 17:37 04/02/19 17:37 04/02/19 17:37 04/02/19 17:37 Course - Re-evaluation Re-evalutation: Patient seen and examined vital signs reviewed. Patient was treated with [place] and Zofran Results were reviewed when available and demonstrated unremarkable blood work, unchanged anemia from prior, no leukocytosis, normal renal function, did not repeat urinary testing as this patient's had numerous amounts of UAs and urine cultures, patient has colonized with multidrug-resistant organisms, is not demonstrating signs of acute infection, is currently taking Bactrim. PROCEDURE: Suprapubic catheter exchange: Risk benefits discussed with the patient, including but not limited to introducing infection, bleeding, patient agreed, the balloon from the indwelling catheter, was attempted to be deflated, but did not deflate completely, therefore the tubing had to be cut, and this did relieve the rest the pressure of the balloon, and his prior catheter was removed, his new catheter was placed, by myself with a 16 [place] Vo catheter, under maximum sterile conditions, the area was cleaned with povidone, and the catheter was inserted sterilely, balloon was inflated, and was secured, clear yellow urine, came out of the tubing, no complications. The patient was re-evaluated and was stable and improved Evaluation was most consistent with suprapubic abdominal pain, hematuria Results were discussed with the patient at this point, after careful consideration I feel that that patient can be discharged from the emergency department, the patient was educated treatments and reasons to return to the emergency department based on their presumed diagnosis as noted above, they were advised to followup with a primary care physician in 2-3 days. Patient was agreeable to plan of care. *Note is created using voice recognition software and may contain spelling, synt ax or grammatical errors. Laboratory 04/02/19 04/02/19 19:38 19:38 WBC 9.2 RBC 4.98 Hgb 11.7 L Hct 37.0 L MCV 74 L MCH 23.4 L MCHC 31.5 L RDW 21.7 H Plt Count 554 H Total Counted 100 Seg Neutrophils % Not Reportable Seg Neuts % (Manual) 78 Lymphocytes % Not Reportable Lymphocytes % (Manual) 17 Monocytes % Not Reportable Monocytes % (Manual) 4 Eosinophils % Not Reportable Eosinophils % (Manual) 0 Basophils % Not Reportable Basophils % (Manual) 1 Absolute Neutrophils Not Reportable Abs Neuts (Manual) 7.2 Absolute Lymphocytes Not Reportable Abs Lymphs (Manual) 1.6 Absolute Monocytes Not Reportable Abs Monocytes (Manual) 0.4 Absolute Eosinophils Not Reportable Absolute Eos (Manual) 0.0 Absolute Basophils Not Reportable Abs Basophils (Manual) 0.1 Platelet Comment INCREASED Polychromasia SLIGHT Poikilocytosis 1+ Anisocytosis 3+ Microcytosis 1+ Target Cells 1+ Ovalocytes 1+ Sodium 138.7 Potassium 4.6 Chloride 103 Carbon Dioxide 26 Anion Gap 10 BUN 9 Creatinine 0.95 Est GFR ( Amer) > 60 Est GFR (Non-Af Amer) > 60 Glucose 83 Calcium 9.3 Total Bilirubin 0.7 Direct Bilirubin 0.2 Neonat Total Bilirubin Not Reportable Neonat Direct Bilirubin Not Reportable Neonat Indirect Bili Not Reportable AST 29 ALT 35 Alkaline Phosphatase 69 Total Protein 6.3 Albumin 3.5 Lipase 121.5 - Vital Signs Vital signs: Temp Pulse Resp BP Pulse Ox 97.5 F 79 18 155/81 H 100 04/03/19 00:44 04/03/19 00:44 04/03/19 00:44 04/03/19 00:44 04/03/19 00:44 - Laboratory Result Diagrams: 04/02/19 19:38 04/02/19 19:38 Laboratory results interpreted by me: 04/02/19 19:38 Hgb 11.7 L Hct 37.0 L MCV 74 L MCH 23.4 L MCHC 31.5 L RDW 21.7 H Plt Count 554 H Discharge - Discharge Clinical Impression: Encounter for suprapubic catheter care, Suprapubic abdominal pain Hematuria Qualifiers: Hematuria type: unspecified type Qualified Code(s): R31.9 - Hematuria, unspecified Suprapubic catheter dysfunction Qualifiers: Encounter type: initial encounter Qualified Code(s): T83.010A - Breakdown (mechanical) of cystostomy catheter, initial encounter Condition: Stable Disposition: HOME, SELF-CARE Instructions: Vo Catheter Care ([facility]) Additional Instructions: Please follow-up with your urologist, if you develop fevers, do not hesitate to return to the emergency department, please complete the entire course of antibiotics as previously prescribed. Prescriptions: Promethazine HCl [Phenergan 25 mg Tablet] 1 tab PO Q6H PRN #15 tablet PRN Reason: nausea/vomiting Referrals: DANIAL LABOY MD [Primary Care Provider] - Follow up in 3-5 days
[2019-04-03 00:45] VITALS: BP 155/81
== END 2019-04-03 00:50 | disposition home or self-care (01) ==
LOC: ER 17:30
DX: T83.010A Breakdown (mechanical) of cystostomy catheter, initial encounter (principal); R31.9 Hematuria, unspecified; R10.30 Lower abdominal pain, unspecified; Z87.891 Personal history of nicotine dependence
CPT/HCPCS: 99283; 96372; 51702; 36415; 83690; 85025; 80053; C1758; J1885; A9270 ×4; S0119

== ENCOUNTER 2019-04-05 18:02 | Emergency (ER) | payer MEDICARE ==
[2019-04-05 18:11] VITALS: BP 143/78
[2019-04-05] MEDS ORDERED: ACETAMINOPHEN 325 MG TABLET PO ONE (18:28)
--- NOTE | 2019-04-05 18:52 | RADIOLOGY REPORT (SQ) ---
EXAM DESCRIPTION: HAND RIGHT 3 VIEWS COMPLETED DATE/TIME: 04/05/2019 6:42 pm REASON FOR STUDY: Rt hand pain COMPARISON: None. EXAM PARAMETERS: NUMBER OF VIEWS: Three views. TECHNIQUE: AP, lateral and oblique radiographic images acquired of the right hand. LIMITATIONS: None. FINDINGS: MINERALIZATION: Normal. BONES: No acute fracture or dislocation. No worrisome bone lesions. JOINTS: No effusions. SOFT TISSUES: No soft tissue swelling. No foreign body. OTHER: No other significant finding. IMPRESSION: No fracture or dislocation of the right hand. No radiographic abnormality of the base o f the right thumb to explain pain; joint spaces are well preserved radiographically. TECHNICAL DOCUMENTATION: JOB ID: [id number] [employer]- All Rights Reserved Reading location - IP/workstation name: [email or web address]
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
[2019-04-05] MEDS ORDERED: HYDROXYZINE PAMOATE 25 MG CAPSULE PO ONE (19:55)
== END 2019-04-05 20:20 | disposition home or self-care (01) ==
LOC: ER 18:02
PROC: 2W3CX1Z Immobilization of Right Lower Arm using Splint (ICD-10-PCS; principal; 2019-04-05)
DX: M25.531 Pain in right wrist (principal); M79.641 Pain in right hand; W51.XXXA Accidental striking against or bumped into by another person, initial encounter
CPT/HCPCS: 99283; 73130; 29125; A9270 ×2

== ENCOUNTER 2019-04-06 02:52 | Emergency (ER) | payer MEDICARE ==
[2019-04-06 03:02] VITALS: BP 139/72
[2019-04-06] MEDS ORDERED: ONDANSETRON 4 MG TAB.RAPDIS PO ONE (04:04)
[2019-04-06] MEDS ORDERED: ACETAMINOPHEN 325 MG TABLET PO ONE (04:04)
--- NOTE | 2019-04-06 04:06 | ER Document Report ---
ED General - General Chief Complaint: Hand Swelling Stated Complaint: HAND PAIN Time Seen by Provider: 04/06/19 03:46 Primary Care Provider: DANIAL LABOY MD [Primary Care Provider] - Follow up as needed Notes: Patient is a 48-year-old male presents with complaint of noticing some blood. He says he did not actually notice blood in urine back but notes a little bit of blood coming from his urethral meatus as well as may be some coming from around the suprapubic catheter site. He denies any dysuria. No fevers. No vomiting. He says he has some chronic pain at the site of the suprapubic catheter for which she was prescribed Naprosyn but he has not yet filled this prescription. Patient second complaint is that he has some numbness into his right hand. He was seen here yesterday after he punched a wall and hurt his hand. X-rays were negative. He was placed in a splint because he did have some scaphoid tenderness. He says he is having some tingling into the hand. Admits that he always has tingling in his hand because of his transverse myelitis; however, he says is a little bit worse in the last 24 hours. Patient also mentions in passing that he has been depressed. He said he recently found out that his girlfriend is yet he does not think a child he says. He says he is not suicidal. He says he would not do anything to hurt himself. TRAVEL OUTSIDE OF THE [place] IN LAST 30 DAYS: No - Related Data Allergies/Adverse Reactions: No Known Allergies Allergy (Verified 04/05/19 18:03) Past Medical History - Social History Smoking Status: Never Smoker Frequency of alcohol use: Heavy Drug Abuse: None Family History: None, Hypertension Renal/ Medical History: Reports: Hx Kidney Stones. Denies: Hx Peritoneal Dialysis Psychiatric Medical History: Reports: Hx Bipolar Disorder, Hx Borderline Personality Disorder, Hx Depression Past Surgical History: Reports: Hx Cholecystectomy, Hx Genitourinary Surgery - Suprapubic catheter - Immunizations Immunizations up to date: Yes Hx Diphtheria, Pertussis, Tetanus Vaccination: Yes Review of Systems - Review of Systems Notes: My Normal Review Basic REVIEW OF SYSTEMS: CONSTITUTIONAL : Denies fever, chills, or sweats. Denies recent illness. EENT: Denies eye, ear, throat, or mouth pain or symptoms. Denies nasal or sinus congestion. RESPIRATORY: Denies cough, cold, or chest congestion. Denies shortness of breath, difficulty breathing, or wheezing. GASTROINTESTINAL: Denies abdominal pain. Denies nausea, vomiting, or diarrhea. GENITOURINARY: Suprapubic catheter MUSCULOSKELETAL: Right hand pain. SKIN: Denies rash or skin lesions. NEUROLOGICAL: Denies altered mental status or loss of consciousness. Denies headache. Denies weakness or paralysis or loss of use of either side. Denies problems with gait or speech. Denies sensory or motor loss. PSYCHIATRIC: Depression ALL OTHER SYSTEMS REVIEWED AND NEGATIVE. Physical Exam - Vital signs Vitals: Temp Pulse Resp BP Pulse Ox 98.3 F 80 20 139/72 H 98 04/06/19 03:01 04/06/19 03:01 04/06/19 03:01 04/06/19 03:01 04/06/19 03:01 - Notes Notes: General Appearance: Well nourished, alert, cooperative, no acute distress, no obvious discomfort. Vitals: reviewed, See vital signs table. Eyes: PERRL, EOMI, Conjuctiva clear Abdomen: Normal BS, soft, No rigidity, abdomen soft. He has minimal tenderness to palpation over the suprapubic region. Suprapubic catheter site is normal- appearing without evidence of gross blood. I do not see any gross blood in the urine bag. Genital exam: No bleeding coming from urethral meatus. No redness or swelling to the genitalia. Extremities: good pulses in all extremities, thumb spica splint on right hand. No swelling seen in the hand. I did remove the Jose wrap in the splint and rewrap looser. Normal capillary refill in all fingers of the right hand. Skin: warm, dry, appropriate color, no rash Neuro: speech clear, oriented x 3, normal affect, responds appropriately to questions. Course - Re-evaluation Re-evalutation: 04/06/19 05:04 Patient's now says he would like to speak with mental health. He continues say is not homicidal or suicidal. Says he does not want any further work-up he just would like to speak with [facility] about possible adjustment of his medications. I will not draw any further lab testing at this time as patient will likely need placement at a psychiatric facility. He again denies being suicidal homicidal and is not acting in any way homicidal or suicidal. Will consult mental health to speak with him as he requests for this morning. He is medically stable for mental health evaluation. Patient's urinalysis does show some white blood cells which is chronic for him. His significant amount of red blood cells. He is afebrile. He does not look septic or toxic appearing. He is already on Bactrim therefore I will not change his antibiotic at this time. I will send his urine for culture. Dictation of this chart was performed using voice recognition software; therefo re, there may be some unintended grammatical errors. - Vital Signs Vital signs: Temp Pulse Resp BP Pulse Ox 98.3 F 80 20 139/72 H 98 04/06/19 03:01 04/06/19 03:01 04/06/19 03:01 04/06/19 03:01 04/06/19 03:01 - Laboratory Laboratory results interpreted by me: 04/06/19 04:17 Urine Protein 100 H Urine Ketones 20 H Urine Nitrite POSITIVE H Urine Bilirubin SMALL H Urine Urobilinogen 4.0 H Ur Leukocyte Esterase MODERATE H Discharge - Discharge Clinical Impression: Pyuria Depression Qualifiers: Depression Type: unspecified Qualified Code(s): F32.9 - Major depressive disorder, single episode, unspecified Condition: Stable Disposition: ELOPED Additional Instructions: Please follow the recommendations given to you by the mental health team. We have sent urine for culture. If it grows out a bacteria that needs a change in antibiotic we will call you. Please follow-up with your doctor this week for reevaluation and recheck of your wrist to see if you need repeat x-rays performed. Return to the ER if you have any further concerns, fevers, worsening depression, thoughts of suicide. Referrals: DANIAL LABOY MD [Primary Care Provider] - Follow up as needed
[2019-04-06 04:36] LABS: APPEARANCE,URINE SLIGHTLY-CLOUDY; BILIRUBIN,URINE SMALL (NEGATIVE); COLOR,URINE DARK YELLOW; GLUCOSE, URINE NEGATIVE (NEGATIVE); KETONES,URINE 20 mg/dL (NEGATIVE); LEUKOCYTE ESTERASE,URINE MODERATE (NEGATIVE); NITRITE,URINE POSITIVE (NEGATIVE); PROTEIN,URINE 100 mg/dL (NEGATIVE); URINE SPECIFIC GRAVITY 1.027
== END 2019-04-06 06:34 | disposition left against medical advice (07) ==
LOC: ER 02:52
DX: N39.0 Urinary tract infection, site not specified (principal); F32.9 Major depressive disorder, single episode, unspecified; M79.89 Other specified soft tissue disorders; Z90.49 Acquired absence of other specified parts of digestive tract; Z87.442 Personal history of urinary calculi; Z46.6 Encounter for fitting and adjustment of urinary device
CPT/HCPCS: 99281; 87086; 87088; 81001; 87186; A9270; S0119

== ENCOUNTER 2019-04-07 11:15 | Emergency (ER) | payer MEDICARE ==
[2019-04-07 11:26] VITALS: BP 145/74
[2019-04-07] MEDS ORDERED: ALPRAZOLAM 0.5 MG TABLET PO ONE (12:50)
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
[2019-04-07 13:32] LABS: ABSOLUTE BASOPHILS # (AUTO) 0.1 10^3/uL (0.0-0.2); ABSOLUTE EOSINOPHILS # (AUTO) 0.1 10^3/uL (0.0-0.6); ABSOLUTE LYMPHOCYTES (AUTO) 1.3 10^3/uL (0.5-4.7); ABSOLUTE MONOCYTES (AUTO) 0.8 10^3/uL (0.1-1.4); ABSOLUTE NEUT (AUTO) 5.7 10^3/uL (1.7-8.2); BASOPHILS % (AUTO) 1.2 % (0-2); EOSINOPHILS % (AUTO) 1.8 % (0-6); HEMATOCRIT 36.4 % (37.9-51.0); HEMOGLOBIN 11.4 g/dL (13.5-17.0); LYMPHOCYTES % (AUTO) 15.9 % (13-45); MEAN CORPUSCULAR HEMOGLOBIN 23.3 pg (27.0-33.4); MEAN CORPUSCULAR HGB CONC 31.3 g/dL (32.0-36.0); MEAN CORPUSCULAR VOLUME 75 fl (80-97); MONOCYTES % (AUTO) 10.3 % (3-13); PLATELET COUNT 614 10^3/uL (150-450); RED BLOOD COUNT 4.89 10^6/uL (4.35-5.55); RED CELL DISTRIBUTION WIDTH 21.9 % (11.5-14.0); SEGMENTED NEUTROPHILS % (AUTO) 70.8 % (42-78); TOTAL CELLS COUNTED % (AUTO) 100 %; WHITE BLOOD COUNT 8.1 10^3/uL (4.0-10.5)
[2019-04-07 13:49] LABS: ALANINE AMINOTRANSFERASE 28 U/L (21-72); ALBUMIN 3.6 g/dL (3.5-5.0); ALKALINE PHOSPHATASE 68 U/L (38-126); ANION GAP 11 (5-19); ASPARTATE AMINO TRANSFERASE 29 U/L (17-59); BILIRUBIN,DIRECT 0.3 mg/dL (0.0-0.4); BILIRUBIN,TOTAL 0.4 mg/dL (0.2-1.3); BLOOD UREA NITROGEN 10 mg/dL (7-20); CALCIUM 9.2 mg/dL (8.4-10.2); CARBON DIOXIDE 24 mmol/L (22-30); CHLORIDE 104 mmol/L (98-107); GLUCOSE 80 mg/dL (75-110); POTASSIUM 5.1 mmol/L (3.6-5.0); SODIUM 139.2 mmol/L (137-145); TOTAL PROTEIN 6.2 g/dL (6.3-8.2)
== END 2019-04-07 13:08 | disposition home or self-care (01) ==
LOC: ER 11:15
DX: F41.9 Anxiety disorder, unspecified (principal); T42.4X6A Underdosing of benzodiazepines, initial encounter; Z91.128 Patient's intentional underdosing of medication regimen for other reason; Z91.14 Patient's other noncompliance with medication regimen; Z51.81 Encounter for therapeutic drug level monitoring; F17.200 Nicotine dependence, unspecified, uncomplicated
CPT/HCPCS: 99283; 36415; 85025; 80053; 80164; A9270

== ENCOUNTER 2019-04-11 00:51 | Emergency (ER) | payer MEDICARE ==
[2019-04-11 01:02] VITALS: BP 128/76
--- NOTE | 2019-04-11 01:40 | ER Document Report ---
HPI - HPI Patient complains to provider of: "I need something to call me down." Pain Level: 5 Context: Patient is a 48-year-old male presents to the emergency department requesting medication to calm him down. Patient states he does take Xanax and took 2 of them at home prior to arrival. States today he got a text message from his girlfriend telling him to kill himself. Patient's denying any SI or HI. States he would like to know why someone would text him and say that. Patient is also requesting "more Xanax, or something to calm me down." - REPRODUCTIVE Reproductive: DENIES: : Past Medical History - General Information source: Patient - Social History Smoking Status: Current Every Day Smoker Family History: None, Hypertension Renal/ Medical History: Reports: Hx Kidney Stones. Denies: Hx Peritoneal Dialysis Psychiatric Medical History: Reports: Hx Bipolar Disorder, Hx Borderline Personality Disorder, Hx Depression Past Surgical History: Reports: Hx Cholecystectomy, Hx Genitourinary Surgery - Suprapubic catheter - Immunizations Immunizations up to date: Yes Hx Diphtheria, Pertussis, Tetanus Vaccination: Yes Vertical Provider Document - CONSTITUTIONAL Agree With Documented VS: Yes Notes: GENERAL: Alert, interacts well. No acute distress. HEAD: Normocephalic, atraumatic. EYES: Pupils equal, round, and reactive to light. Extraocular movements intact. ENT: Oral mucosa moist, tongue midline. NECK: Full range of motion. Supple. Trachea midline. LUNGS: Clear to auscultation bilaterally, no wheezes, rales, or rhonchi. No respiratory distress. HEART: Regular rate and rhythm. No murmur ABDOMEN: Soft, non-tender. Non-distended. Bowel sounds present in all 4 quadrants. EXTREMITIES: Moves all 4 extremities spontaneously. No edema, normal radial and dorsalis pedis pulses bilaterally. No cyanosis. BACK: no cervical, thoracic, lumbar midline tenderness. No saddle anesthesia, normal distal neurovascular exam. NEUROLOGICAL: Alert and oriented x3. Normal speech. cranial nerves II through XII grossly intact PSYCH: Normal affect, excited mood. SKIN: Warm, dry, normal turgor. No rashes or lesions noted. - INFECTION CONTROL TRAVEL OUTSIDE OF THE [place] IN LAST 30 DAYS: No Course - Re-evaluation Re-evalutation: 04/11/19 01:37 Patient presents to the emergency department non-tachycardic, non-hypertensive, calm. States he took 1 of his at home Xanax prior to arrival. Patient is now asking for something more to calm him down. He is also requesting that I tell him why his girlfriend would text him and tell him to kill himself. I have discussed with him I am unsure why his girlfriend would text him that. I cannot speak for his girlfriend. I have also discussed with the patient that I do not feel comfortable giving him any more medications to calm him down seeing as though he just took his at home Xanax. Patient then states "go fuck yourself!" Patient gets up out of the hospital bed and proceeds to leave the emergency room. He was denying homicidal ideations or suicidal ideations upon arrival to the ED so at this point time patient is able to leave the emergency room. - Vital Signs Vital signs: Temp Pulse Resp BP Pulse Ox 98.3 F 91 16 128/76 H 100 04/11/19 00:52 04/11/19 00:52 04/11/19 00:52 04/11/19 00:52 04/11/19 00:52 Discharge - Discharge Clinical Impression: Anxiety Condition: Stable Disposition: HOME, SELF-CARE Instructions: Anxiety ([facility]) Additional Instructions: As we discussed you should continue to take your At Home medications for anxiety. You should also follow-up with your primary care provider and mental health providers with which you state you are seeing. Please also return to the emergency room for any other concerns. Referrals: DANIAL LABOY MD [Primary Care Provider] - Follow up as needed
== END 2019-04-11 02:08 | disposition home or self-care (01) ==
LOC: ER 00:51
DX: F41.9 Anxiety disorder, unspecified (principal); Z79.899 Other long term (current) drug therapy; F17.200 Nicotine dependence, unspecified, uncomplicated
CPT/HCPCS: 99283

== ENCOUNTER 2019-04-12 23:13 | Emergency (ER) | payer MEDICARE ==
[2019-04-12] MEDS ORDERED: NITROGLYCERIN 0.4 MG/TAB 25 TAB/BOTTLE SL PRN (23:49)
[2019-04-12] MEDS ORDERED: ONDANSETRON HCL INJ/PF 4 MG/2 ML SDV IV ONE (23:49)
[2019-04-12] MEDS ORDERED: ASPIRIN 81 MG TABLET, CHEWABLE PO ONE (23:49)
[2019-04-13] LABS: ABSOLUTE BASOPHILS # (AUTO) 0.1 10^3/uL (0.0-0.2); ABSOLUTE EOSINOPHILS # (AUTO) 0.3 10^3/uL (0.0-0.6); ABSOLUTE LYMPHOCYTES (AUTO) 1.4 10^3/uL (0.5-4.7); ABSOLUTE MONOCYTES (AUTO) 0.6 10^3/uL (0.1-1.4); ABSOLUTE NEUT (AUTO) 4.3 10^3/uL (1.7-8.2); BASOPHILS % (AUTO) 1.1 % (0-2); EOSINOPHILS % (AUTO) 3.9 % (0-6); HEMATOCRIT 35.7 % (37.9-51.0); HEMOGLOBIN 11.2 g/dL (13.5-17.0); LYMPHOCYTES % (AUTO) 20.8 % (13-45); MEAN CORPUSCULAR HEMOGLOBIN 23.4 pg (27.0-33.4); MEAN CORPUSCULAR HGB CONC 31.4 g/dL (32.0-36.0); MEAN CORPUSCULAR VOLUME 75 fl (80-97); MONOCYTES % (AUTO) 9.4 % (3-13); PLATELET COUNT 478 10^3/uL (150-450); RED BLOOD COUNT 4.78 10^6/uL (4.35-5.55); RED CELL DISTRIBUTION WIDTH 22.9 % (11.5-14.0); SEGMENTED NEUTROPHILS % (AUTO) 64.8 % (42-78); TOTAL CELLS COUNTED % (AUTO) 100 %; WHITE BLOOD COUNT 6.6 10^3/uL (4.0-10.5)
[2019-04-13 00:07] LABS: INTERNATIONAL RATION (INR) 1.07; PROTHROMBIN TIME 14.4 SEC (11.4-15.4)
[2019-04-13 00:08] LABS: ALANINE AMINOTRANSFERASE 32 U/L (21-72); ALBUMIN 3.2 g/dL (3.5-5.0); ALKALINE PHOSPHATASE 62 U/L (38-126); ANION GAP 8 (5-19); ASPARTATE AMINO TRANSFERASE 31 U/L (17-59); BILIRUBIN,DIRECT 0.3 mg/dL (0.0-0.4); BILIRUBIN,TOTAL 0.4 mg/dL (0.2-1.3); BLOOD UREA NITROGEN 7 mg/dL (7-20); CALCIUM 9.5 mg/dL (8.4-10.2); CARBON DIOXIDE 26 mmol/L (22-30); CHLORIDE 106 mmol/L (98-107); CREATINE KINASE 145 U/L (55-170); GLUCOSE 90 mg/dL (75-110); POTASSIUM 4.3 mmol/L (3.6-5.0); SODIUM 139.9 mmol/L (137-145); TOTAL PROTEIN 5.7 g/dL (6.3-8.2)
[2019-04-13 00:19] LABS: CREATINE KINASE MB 4.91 ng/mL (<4.55)
[2019-04-13 00:23] LABS: TROPONIN I < 0.012 ng/mL
[2019-04-13] MEDS ORDERED: HYDROCODONE/ACETAMINOPHEN 5-325 MG TABLET PO ONE (00:40)
--- NOTE | 2019-04-13 01:49 | RADIOLOGY REPORT (SQ) ---
EXAM DESCRIPTION: XR CHEST 1 VIEW COMPLETED DATE/TME: 04/12/2019 23:49 CLINICAL HISTORY: 48 years, Male, LOC, fall COMPARISON: 03/29/2019 chest NUMBER OF VIEWS: 2 TECHNIQUE: AP chest LIMITATIONS: None. FINDINGS: The heart size is normal. Lungs are clear. No pneumothorax. Post surgical change cervical spine IMPRESSION: No acute cardiopulmonary process copyright 2010 [employer]- All Rights Reserved
--- NOTE | 2019-04-13 01:55 | RADIOLOGY REPORT (SQ) ---
EXAM DESCRIPTION: CT HEAD WITHOUT IV CONTRAST COMPLETED DATE/TME: 04/12/2019 23:46 CLINICAL HISTORY: 48 years, Male, LOC, fall COMPARISON: 10/17/2018 CT brain TECHNIQUE: 74 Images stored on PACS. All CT scanners at this facility use dose modulation, iterative reconstruction, and/or weight based dosing when appropriate to reduce radiation dose to as low as reasonably achievable (ALARA). [facility]: Dose Right [facility]: CareDose [facility]: Dose Right [facility]: Teradose 4D [facility]: Moment.Us LIMITATIONS: None. FINDINGS: The globes are intact. Mucosal thickening of the ethmoid air cells and polyp of the right sphenoid sinus. No displaced or depressed skull fracture. No intra or extra-axial hemorrhage. CT is limited for evaluation of acute infarct. No CT evidence for large or territorial acute infarct. No mass. No midline shift IMPRESSION: Negative for acute intracranial abnormality TECHNICAL DOCUMENTATION: Quality ID # [id number]: Final reports with documentation of one or more dose reduction techniques (e.g., Automated exposure control, adjustment of the mA and/or kV according to patient size, use of iterative reconstruction technique) copyright 2011 [employer]- All Rights Reserved
--- NOTE | 2019-04-13 02:10 | RADIOLOGY REPORT (SQ) ---
EXAM DESCRIPTION: CT CERVICAL SPINE WITHOUT IV CONTRAST COMPLETED DATE/TME: 04/12/2019 23:47 CLINICAL HISTORY: LOC, fall COMPARISON: None available TECHNIQUE: Axial CT of the cervical spine obtained without contrast. FINDINGS: Alignment of the cervical spine is maintained without evidence of subluxation. Anterior fixation at C5/6 without hardware abnormality identified. The atlantoaxial, atlantodental, and occipitoatlantal intervals are preserved. No fracture identified. Vertebral body height preserved. Prevertebral soft tissues are unremarkable. Mild loss of intervertebral disc height at C6/7. Minimal endplate spondylosis.. Visualized skull base is intact. No fracture of the visualized facial bones. Visualized mastoid air cells and paranasal sinuses are well aerated. Visualized thyroid is unremarkable. No cervical lymphadenopathy. No pneumothorax in the visualized lung apices. DLP: 544.68 mGy-cm IMPRESSION: 1. No acute fracture or subluxation of the cervical spine. 2. Anterior fixation at C6/C7. Mild degenerative change of the cervical spine. This exam was performed according to our departmental dose-optimization program, which includes automated exposure control, adjustment of the mA and/or kV according to patient size and/or use of iterative reconstruction technique.
[2019-04-13 05:05] VITALS: BP 142/89
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
--- NOTE | 2019-04-13 17:32 | EKG REPORT ---
SEVERITY:- ABNORMAL ECG - SINUS RHYTHM IVCD, CONSIDER ATYPICAL RBBB PROBABLE ANTEROSEPTAL INFARCT, OLD : Confirmed by: Lashawn Ambrosio MD 13-Apr-2019 17:31:55
--- NOTE | 2019-04-13 17:32 | EKG REPORT ---
SEVERITY:- ABNORMAL ECG - SINUS RHYTHM IVCD, CONSIDER ATYPICAL RBBB : Confirmed by: Lashawn Ambrosio MD 13-Apr-2019 17:32:00
== END 2019-04-13 04:55 | disposition home or self-care (01) ==
LOC: ER 23:13
DX: R55 Syncope and collapse (principal); R07.9 Chest pain, unspecified; M54.2 Cervicalgia; R11.2 Nausea with vomiting, unspecified; M25.572 Pain in left ankle and joints of left foot; W10.9XXA Fall (on) (from) unspecified stairs and steps, initial encounter; Z87.442 Personal history of urinary calculi; Z90.49 Acquired absence of other specified parts of digestive tract
CPT/HCPCS: 93005 ×2; 99284; 96374; 36415; 82553; 82550; 85025; 85610; 80053; 84484; 71045; 70450; 72125; 93010 ×2; J2405; A9270

== ENCOUNTER → 2019-04-17 | Outpatient (CLI) | payer MEDICARE ==
--- NOTE | 2019-04-17 16:34 | RADIOLOGY REPORT (SQ) ---
EXAM DESCRIPTION: CHEST PA/LATERAL COMPLETED DATE/TIME: 04/17/2019 4:24 pm REASON FOR STUDY: PRE-OP COMPARISON: 04/13/2019 EXAM PARAMETERS: NUMBER OF VIEWS: two views TECHNIQUE: Digital Frontal and Lateral radiographic views of the chest acquired. RADIATION DOSE: NA LIMITATIONS: none FINDINGS: LUNGS AND PLEURA: No opacities, masses or pneumothorax. No pleural effusion. MEDIASTINUM AND HILAR STRUCTURES: No masses or contour abnormalities. HEART AND VASCULAR STRUCTURES: Heart normal size. No evidence for failure. BONES: No acute findings. HARDWARE: None in the chest. OTHER: No other significant finding. IMPRESSION: NO SIGNIFICANT RADIOGRAPHIC FINDING IN THE CHEST. TECHNICAL DOCUMENTATION: JOB ID: [id number] [employer]- All Rights Reserved Reading location - IP/workstation name: [email or web address]
--- NOTE | 2019-04-17 16:53 | EKG REPORT ---
SEVERITY:- ABNORMAL ECG - SINUS RHYTHM IVCD, CONSIDER ATYPICAL RBBB : Confirmed by: Marco Lux MD 17-Apr-2019 16:52:13
[2019-04-17 17:46] LABS: ABSOLUTE BASOPHILS # (AUTO) 0.1 10^3/uL (0.0-0.2); ABSOLUTE EOSINOPHILS # (AUTO) 0.2 10^3/uL (0.0-0.6); ABSOLUTE LYMPHOCYTES (AUTO) 1.2 10^3/uL (0.5-4.7); ABSOLUTE MONOCYTES (AUTO) 0.8 10^3/uL (0.1-1.4); ABSOLUTE NEUT (AUTO) 4.6 10^3/uL (1.7-8.2); BASOPHILS % (AUTO) 1.4 % (0-2); EOSINOPHILS % (AUTO) 2.4 % (0-6); HEMATOCRIT 35.5 % (37.9-51.0); HEMOGLOBIN 11.3 g/dL (13.5-17.0); LYMPHOCYTES % (AUTO) 16.8 % (13-45); MEAN CORPUSCULAR HEMOGLOBIN 23.8 pg (27.0-33.4); MEAN CORPUSCULAR HGB CONC 31.7 g/dL (32.0-36.0); MEAN CORPUSCULAR VOLUME 75 fl (80-97); MONOCYTES % (AUTO) 11.5 % (3-13); PLATELET COUNT 379 10^3/uL (150-450); RED BLOOD COUNT 4.73 10^6/uL (4.35-5.55); RED CELL DISTRIBUTION WIDTH 22.7 % (11.5-14.0); SEGMENTED NEUTROPHILS % (AUTO) 67.9 % (42-78); TOTAL CELLS COUNTED % (AUTO) 100 %; WHITE BLOOD COUNT 6.9 10^3/uL (4.0-10.5)
[2019-04-17 17:51] LABS: APPEARANCE,URINE SLIGHTLY-CLOUDY; BILIRUBIN,URINE NEGATIVE (NEGATIVE); COLOR,URINE YELLOW; GLUCOSE, URINE NEGATIVE (NEGATIVE); KETONES,URINE TRACE mg/dL (NEGATIVE); LEUKOCYTE ESTERASE,URINE TRACE (NEGATIVE); NITRITE,URINE POSITIVE (NEGATIVE); PROTEIN,URINE 30 mg/dL (NEGATIVE); URINE SPECIFIC GRAVITY 1.015
[2019-04-17 18:05] LABS: ANION GAP 8 (5-19); BLOOD UREA NITROGEN 8 mg/dL (7-20); CALCIUM 9.2 mg/dL (8.4-10.2); CARBON DIOXIDE 27 mmol/L (22-30); CHLORIDE 105 mmol/L (98-107); GLUCOSE 112 mg/dL (75-110); POTASSIUM 4.1 mmol/L (3.6-5.0); SODIUM 140.2 mmol/L (137-145)
== END ==
LOC: OD 15:50
PROVIDERS: ATTEND Orthopaedic Surgery
DX: Z01.812 Encounter for preprocedural laboratory examination (principal); Z01.810 Encounter for preprocedural cardiovascular examination; Z01.811 Encounter for preprocedural respiratory examination; M17.11 Unilateral primary osteoarthritis, right knee
CPT/HCPCS: 36415; 71046; 80048; 81001; 85025; 93005; 93010

== ENCOUNTER 2019-04-19 04:57 | Emergency (ER) | payer MEDICARE ==
[2019-04-19 05:04] VITALS: BP 148/74
[2019-04-19] MEDS ORDERED: ONDANSETRON HCL INJ/PF 4 MG/2 ML SDV IV ONE (06:46)
[2019-04-19] MEDS ORDERED: NORMAL SALINE 1000 ML 1,000 ML IV ONE (07:13)
[2019-04-19] MEDS ORDERED: KETOROLAC TROMETHAMINE INJ/PF 30 MG/1 ML SDV IV ONE (07:14)
--- NOTE | 2019-04-19 07:19 | ER Document Report ---
ED General - General Chief Complaint: Nausea/Vomiting/Diarrhea Stated Complaint: URINARY PROBLEMS Time Seen by Provider: 04/19/19 07:05 TRAVEL OUTSIDE OF THE [place]. IN LAST 30 DAYS: No - HPI Notes: Patient is a 48-year-old male that presents to the emergency department for chief complaint of nausea, vomiting, diarrhea and abdominal pain. Patient reports yesterday morning he started to feel nauseated. He then began to have a diffuse crampy abdominal pain. He describes the pain is crampy and sharp. He denies any aggravating or relieving factors to his pain. Around midnight he began vomiting. He states that he did have 3-4 episodes of diarrhea yesterday and another few overnight. He denies any black or bloody stools. He denies any hematemesis. Patient has not had any fevers or chills. He is currently on Cipro for urinary tract infection and states he has been on that for the last 2 to 3 days. Patient states he was prescribed tramadol by Dr. Fink for pain in his right knee and is due to have a right knee replacement in the near future by Dr. Fink. He has not taken any of his pain medication since getting the prescription filled. Past Medical History: Transverse myelitis, with incomplete paraplegia, bipolar disorder, schizophrenia Past Surgical History: Suprapubic catheter placement, cholecystectomy Social History: Former smoker, denies current alcohol or drug use. Family History: Reviewed and noncontributory for presenting illness Allergies: Reviewed, see documented allergy list. REVIEW OF SYSTEMS: CONSTITUTIONAL : No fever No chills No diaphoresis No recent illness EENT: No vision changes No congestion No sore throat CARDIOVASCULAR: No chest pain No palpitations RESPIRATORY: No shortness of breath No cough No difficulty breathing GASTROINTESTINAL: abdominal pain nausea vomiting diarrhea GENITOURINARY: No dysuria No hematuria No difficulty urinating MUSCULOSKELETAL: No back pain Right knee pain No arm pain SKIN: No rashes No lesions LYMPHATIC: No swollen, enlarged glands. NEUROLOGICAL: No lightheadedness No headache No weakness No paresthesias PSYCHIATRIC: No anxiety No depression PHYSICAL EXAMINATION: Vital signs reviewed, nursing noted reviewed. GENERAL: Well-appearing, well-nourished and in no acute distress. HEAD: Atraumatic, normocephalic. EYES: Eyes appear normal, extraocular movements intact, sclera anicteric, conjunctiva are normal. ENT: nares patent, oropharynx clear without exudates. Moist mucous membranes. NECK: Normal range of motion, supple without lymphadenopathy LUNGS: Breath sounds clear to auscultation bilaterally and equal. No wheezes rales or rhonchi. HEART: Regular rate and rhythm without murmurs ABDOMEN: Protuberant, soft, nontender, normoactive bowel sounds. No rebound, guarding, or rigidity. No masses appreciated. EXTREMITIES: Tenderness palpation of right knee with effusion and decreased range of motion. No right knee erythema or calor. Good range of motion, no pitting or edema. NEUROLOGICAL: No focal neurological deficits. Moves all extremities spontaneously Motor and sensory grossly intact on exam. PSYCH: Normal mood, normal affect. SKIN: Warm, Dry, normal turgor, suprapubic Vo catheter ostomy clean, dry and intact. - Related Data Allergies/Adverse Reactions: No Known Allergies Allergy (Verified 04/11/19 01:58) Past Medical History - Social History Smoking Status: Unknown if Ever Smoked Family History: None, Hypertension Renal/ Medical History: Reports: Hx Kidney Stones. Denies: Hx Peritoneal Dialysis Psychiatric Medical History: Reports: Hx Bipolar Disorder, Hx Borderline Personality Disorder, Hx Depression Past Surgical History: Reports: Hx Cholecystectomy, Hx Genitourinary Surgery - Suprapubic catheter - Immunizations Immunizations up to date: Yes Hx Diphtheria, Pertussis, Tetanus Vaccination: Yes Physical Exam - Vital signs Vitals: Temp Pulse Resp BP Pulse Ox 98.1 F 96 20 148/74 H 98 04/19/19 05:02 04/19/19 05:02 04/19/19 05:02 04/19/19 05:02 04/19/19 05:02 Course - Re-evaluation Re-evalutation: 04/19/19 07:18 Vitals reviewed. Nursing notes reviewed. Patient is afebrile and in no acute distress. I cannot elicit any tenderness on abdominal exam. He has told me t hat "it is only reasonable to give me a stronger pain medication than the tramadol since I am in the emergency room". Patient has not taken anything at home for pain including his home tramadol. He will be started with Toradol for pain control. Patient also ordered IV fluids and Zofran. 04/19/19 09:10 Patient's x-ray shows fecal impaction. He has had loose stools around his fecal impaction. Patient has MiraLAX at home which he states he will take to help soften his bowel movement.. He does have a GI physician in [place] which he states he will follow-up within the next 2 to 3 days. Patient will return for new or worsening symptoms. He will take his tramadol at home for pain. Jayme farias is stable at discharge. Laboratory 04/19/19 04/19/19 04/19/19 07:30 07:30 07:40 WBC 7.8 RBC 4.59 Hgb 11.1 L Hct 34.3 L MCV 75 L MCH 24.2 L MCHC 32.4 RDW 22.5 H Plt Count 327 Seg Neutrophils % 76.4 Lymphocytes % 10.3 L Monocytes % 10.1 Eosinophils % 2.2 Basophils % 1.0 Absolute Neutrophils 6.0 Absolute Lymphocytes 0.8 Absolute Monocytes 0.8 Absolute Eosinophils 0.2 Absolute Basophils 0.1 Sodium 140.6 Potassium 3.8 Chloride 106 Carbon Dioxide 29 Anion Gap 6 BUN 8 Creatinine 0.77 Est GFR ( Amer) > 60 Est GFR (Non-Af Amer) > 60 Glucose 107 Calcium 8.4 Total Bilirubin 0.3 Direct Bilirubin 0.2 Neonat Total Bilirubin Not Reportable Neonat Direct Bilirubin Not Reportable Neonat Indirect Bili Not Reportable AST 31 ALT 37 Alkaline Phosphatase 69 Total Protein 5.9 L Albumin 3.2 L Urine Color YELLOW Urine Appearance CLEAR Urine pH 6.0 Ur Specific Odell 1.014 Urine Protein NEGATIVE Urine Glucose (UA) 50 H Urine Ketones TRACE H Urine Blood NEGATIVE Urine Nitrite NEGATIVE Urine Bilirubin NEGATIVE Urine Urobilinogen 2.0 H Ur Leukocyte Esterase TRACE H Urine WBC (Auto) 7 Urine RBC (Auto) 0 Urine Bacteria (Auto) 1+ Urine Mucus (Auto) RARE Urine Ascorbic Acid NEGATIVE KUB X-Ray 04/19/19 07:13 IMPRESSION: Fecal impaction. - Vital Signs Vital signs: Temp Pulse Resp BP Pulse Ox 98.1 F 96 20 148/74 H 98 04/19/19 05:02 04/19/19 05:02 04/19/19 05:02 04/19/19 05:02 04/19/19 05:02 - Laboratory Result Diagrams: 04/19/19 07:30 04/19/19 07:30 Laboratory results interpreted by me: 04/19/19 04/19/19 04/19/19 07:30 07:30 07:40 Hgb 11.1 L Hct 34.3 L MCV 75 L MCH 24.2 L RDW 22.5 H Lymphocytes % 10.3 L Total Protein 5.9 L Albumin 3.2 L Urine Glucose (UA) 50 H Urine Ketones TRACE H Urine Urobilinogen 2.0 H Ur Leukocyte Esterase TRACE H Discharge - Discharge Clinical Impression: Diarrhea Qualifiers: Diarrhea type: unspecified type Qualified Code(s): R19.7 - Diarrhea, unspecified Abdominal pain Qualifiers: Abdominal location: generalized Qualified Code(s): R10.84 - Generalized abdominal pain Constipation Qualifiers: Constipation type: other constipation type Qualified Code(s): K59.09 - Other constipation Condition: Stable Disposition: HOME, SELF-CARE Instructions: Abdominal Pain ([facility]), Diarrhea, Nonspecific ([facility]) Additional Instructions: Please return to the emergency department if you have any worsening, or concern of your symptoms. Please return to the emergency department if you develop chest pain, difficulty breathing, severe abdominal pain, or ongoing vomiting. Please follow-up with your primary care physician in 2-3 days and any other recommended physicians. If prescribed, take all medications as directed. If you have any questions or concerns do not hesitate to return the emergency department for evaluation. Bring your stool culture back to the lab for further testing if you are able to provide a sample Forms: Follow-Up Outpatient Testing
[2019-04-19 07:41] LABS: ABSOLUTE BASOPHILS # (AUTO) 0.1 10^3/uL (0.0-0.2); ABSOLUTE EOSINOPHILS # (AUTO) 0.2 10^3/uL (0.0-0.6); ABSOLUTE LYMPHOCYTES (AUTO) 0.8 10^3/uL (0.5-4.7); ABSOLUTE MONOCYTES (AUTO) 0.8 10^3/uL (0.1-1.4); EOSINOPHILS % (AUTO) 2.2 % (0-6); HEMATOCRIT 34.3 % (37.9-51.0); HEMOGLOBIN 11.1 g/dL (13.5-17.0); LYMPHOCYTES % (AUTO) 10.3 % (13-45); MEAN CORPUSCULAR HEMOGLOBIN 24.2 pg (27.0-33.4); MEAN CORPUSCULAR HGB CONC 32.4 g/dL (32.0-36.0); MEAN CORPUSCULAR VOLUME 75 fl (80-97); MONOCYTES % (AUTO) 10.1 % (3-13); PLATELET COUNT 327 10^3/uL (150-450); RED BLOOD COUNT 4.59 10^6/uL (4.35-5.55); RED CELL DISTRIBUTION WIDTH 22.5 % (11.5-14.0); SEGMENTED NEUTROPHILS % (AUTO) 76.4 % (42-78); TOTAL CELLS COUNTED % (AUTO) 100 %; WHITE BLOOD COUNT 7.8 10^3/uL (4.0-10.5)
[2019-04-19 07:56] LABS: ALANINE AMINOTRANSFERASE 37 U/L (21-72); ALBUMIN 3.2 g/dL (3.5-5.0); ALKALINE PHOSPHATASE 69 U/L (38-126); ANION GAP 6 (5-19); ASPARTATE AMINO TRANSFERASE 31 U/L (17-59); BILIRUBIN,DIRECT 0.2 mg/dL (0.0-0.4); BILIRUBIN,TOTAL 0.3 mg/dL (0.2-1.3); BLOOD UREA NITROGEN 8 mg/dL (7-20); CALCIUM 8.4 mg/dL (8.4-10.2); CARBON DIOXIDE 29 mmol/L (22-30); CHLORIDE 106 mmol/L (98-107); GLUCOSE 107 mg/dL (75-110); POTASSIUM 3.8 mmol/L (3.6-5.0); SODIUM 140.6 mmol/L (137-145); TOTAL PROTEIN 5.9 g/dL (6.3-8.2)
[2019-04-19 08:19] LABS: APPEARANCE,URINE CLEAR; BILIRUBIN,URINE NEGATIVE (NEGATIVE); COLOR,URINE YELLOW; GLUCOSE, URINE 50 mg/dL (NEGATIVE); KETONES,URINE TRACE mg/dL (NEGATIVE); LEUKOCYTE ESTERASE,URINE TRACE (NEGATIVE); NITRITE,URINE NEGATIVE (NEGATIVE); PROTEIN,URINE NEGATIVE (NEGATIVE); URINE SPECIFIC GRAVITY 1.014
--- NOTE | 2019-04-19 08:43 | RADIOLOGY REPORT (SQ) ---
EXAM DESCRIPTION: KUB/ABDOMEN (SINGLE VIEW) COMPLETED DATE/TIME: 04/19/2019 7:59 am REASON FOR STUDY: abdominal pain COMPARISON: None. NUMBER OF VIEWS: One view. TECHNIQUE: Supine radiographic image of the abdomen acquired. LIMITATIONS: None. FINDINGS: BOWEL GAS PATTERN: Large amount of gas and stool throughout colon. Mild dilatation of the transverse colon. CALCIFICATIONS: No suspicious calcifications. SOFT TISSUES: No gross mass or suggestion of organomegaly. HARDWARE: None. BONES: No bone lesions or fracture. OTHER: No other significant finding. IMPRESSION: Fecal impaction. Reading location - IP/workstation name: [email or web address]
[2019-04-19] MEDS ORDERED: ACETAMINOPHEN 325 MG TABLET PO ONE (08:53)
[2019-04-19] MEDS ORDERED: ACETAMINOPHEN 325 MG TABLET ONE (09:16)
== END 2019-04-19 09:36 | disposition home or self-care (01) ==
LOC: ER 04:57
DX: R19.7 Diarrhea, unspecified (principal); K59.09 Other constipation; R10.84 Generalized abdominal pain; R11.2 Nausea with vomiting, unspecified; Z87.442 Personal history of urinary calculi; Z90.49 Acquired absence of other specified parts of digestive tract
CPT/HCPCS: 99284; 96361; 96374; 96375; 36415; 87086; 85025; 87088; 80053; 81001; 87186; 74018; A9270; J1885; J2405; J7030

== ENCOUNTER 2019-04-21 19:30 | Emergency (ER) | payer MEDICARE ==
[2019-04-21 19:43] VITALS: BP 148/80
--- NOTE | 2019-04-21 21:22 | RADIOLOGY REPORT (SQ) ---
3 VIEWS OF RIGHT HAND HISTORY: Dog bite. COMPARISON: None. FINDINGS: No acute fracture or dislocation is seen. The joint spaces are preserved. There is diffuse soft tissue swelling without foreign body. There is no cortical erosion or periosteal reaction to suggest acute osteomyelitis. IMPRESSION: No acute fracture or foreign body.
[2019-04-21] MEDS ORDERED: MORPHINE SULFATE 10 MG/ML INJ IM ONE (21:28)
[2019-04-21] MEDS ORDERED: AMOXICILLIN TR/POT CLAVULANATE 500-125 MG TAB PO ONE (21:29)
[2019-04-21] MEDS ORDERED: ONDANSETRON 4 MG TAB.RAPDIS PO ONE (21:29)
[2019-04-21] MEDS ORDERED: RABIES VACCINE (PCEC)/PF 2.5 UNIT/1 ML KIT IM ONE (21:31)
[2019-04-21] MEDS ORDERED: RABIES IMMUNE GLOBULIN INJ/PF 300 UNIT/2 ML SDV IM ONE (21:31)
[2019-04-21] MEDS ORDERED: DIPH/PERTUSS(ACELL)/TETANUS VAC/PF 0.5 ML SYR (>=10YO) IM ONE (21:47)
--- NOTE | 2019-04-21 21:50 | ER Document Report ---
ED General - General Chief Complaint: Dog Bite Stated Complaint: DOG BITE RIGHT HAND Time Seen by Provider: 04/21/19 21:21 Mode of Arrival: Ambulatory Information source: Patient TRAVEL OUTSIDE OF THE [place] IN LAST 30 DAYS: No - HPI Patient complains to provider of: Right middle finger dog bites Onset: Just prior to arrival Onset/Duration: Sudden Severity: Severe Pain Level: 5 Associated symptoms: None Exacerbated by: Movement Relieved by: Denies Similar symptoms previously: No Recently seen / treated by doctor: No Notes: 48-year-old male coming in today with chief complaint dog bites to his right middle finger. Patient states that he has a service animal and that another stray dog came along in his service animal was becoming very protective and was about to hurt the stray dog and the patient says that he picked up a stray dog said that his service animal wet and hurt it and believes that the stray dog bit him multiple times on the right middle finger. Finger is now swollen and very painful - Related Data Allergies/Adverse Reactions: No Known Allergies Allergy (Verified 04/11/19 01:58) Past Medical History - General Information source: Patient - Social History Smoking Status: Smoker,Current Status Unk Family History: None, Reviewed & Not Pertinent, Hypertension Renal/ Medical History: Reports: Hx Kidney Stones. Denies: Hx Peritoneal Dialysis Psychiatric Medical History: Reports: Hx Bipolar Disorder, Hx Borderline Personality Disorder, Hx Depression Past Surgical History: Reports: Hx Cholecystectomy, Hx Genitourinary Surgery - Suprapubic catheter - Immunizations Immunizations up to date: Yes Hx Diphtheria, Pertussis, Tetanus Vaccination: Yes Review of Systems - Review of Systems Notes: Constitutional: No fevers. No chills. EENT: No eye redness. No eye pain. No ear pain. No sore throat. Cardiovascular: No chest pain. No palpitations. Respiratory: No cough. No shortness of breath. No respiratory distress. Gastrointestinal: No abdominal pain. No nausea, vomiting, or diarrhea. Genitourinary: Atraumatic. No lesions. No pain. No discharge. Musculoskeletal: Lacerations and punctures to right middle finger, swelling right middle finger, pain right middle finger Skin: No rash or lesions. Lymphatic: No swollen lymph nodes. Neurologic: No headache. No syncope. Psychiatric: No suicidal or homicidal ideation. Physical Exam - Vital signs Vitals: Temp Pulse Resp BP Pulse Ox 98.0 F 75 20 148/80 H 97 04/21/19 19:43 04/21/19 19:43 04/21/19 19:43 04/21/19 19:43 04/21/19 19:43 - Notes Notes: General: Well-developed, well-nourished. In no acute distress. Non-toxic appearing. Cardiac: Well-perfused. Regular rate and rhythm. No murmurs, rubs, or gallops. Pulmonary: No respiratory distress. No cyanosis. Bilateral lung fiels are clear to auscultation. Abdominal: Non-distended. Non-rigid. Bowels sounds are present in all four quadrants. No guarding or rebound. HEENT: Head is atraumatic. Conjunctivae not reddened. No tearing. PERRL. EOMI. Orbits atraumatic. No periorbital swelling or erythema. Oropharynx is without erythema, swelling, or exudates. Neck: Supple. No adenopathy. No meningismus. Dermatologic: Warm with good turgor. No rash. Atraumatic. Chest: Atraumatic. No chest wall tenderness to palpation. Musculoskeletal: Multiple cuts/punctures right middle finger. Slight swelling with warmth and redness. Genitourinary: Examination deferred Neurologic: No gross neurologic deficits. Psychiatric: Normal mood. Course - Re-evaluation Re-evalutation: 04/21/19 21:49 Patient wants to be vaccinated against rabies. He will get pain medicine, Tdap, rabies vaccine, rabies immunoglobulin, and Augmentin. He will get a prescription for Augmentin and pain medication to go home with. He will follow the recommended regimen for further vaccinations through the health department - Vital Signs Vital signs: Temp Pulse Resp BP Pulse Ox 98.0 F 75 20 148/80 H 97 04/21/19 19:43 04/21/19 19:43 04/21/19 19:43 04/21/19 19:43 04/21/19 19:43 Discharge - Discharge Clinical Impression: Rabies, need for prophylactic vaccination against, Need for prophylactic vaccination against diphtheria, tetanus, acellular pertussis, poliovirus, and hepatitis B virus Dog bite Qualifiers: Encounter type: initial encounter Qualified Code(s): W54.0XXA - Bitten by dog, initial encounter Condition: Good Disposition: HOME, SELF-CARE Instructions: Animal Bites ([facility]), Rabies Prophyllaxis ([facility]), Tetanus Immunization Given ([facility]) Additional Instructions: Pain medication as needed. Antibiotics as prescribed. Follow appropriate protocol for further rabies vaccines at the health department. Prescriptions: Amox Tr/Potassium Clavulanate [Augmentin 875-125 Tablet] 1 tab PO BID 10 Days tablet Oxycodone HCl/Acetaminophen [Percocet 5-325 mg Tablet] 1 - 2 tab PO Q4H PRN #15 tablet PRN Reason: Referrals: [facility]ALTH DEPT,[facility] [NO LOCAL MD] - 04/24/19
[2019-04-21] MEDS ORDERED: LORAZEPAM INJ 2 MG/1 ML VIAL IM ONE (23:05)
== END 2019-04-21 23:48 | disposition home or self-care (01) ==
LOC: ER 19:30
DX: Z23 Encounter for immunization (principal); S61.451A Open bite of right hand, initial encounter; M79.89 Other specified soft tissue disorders; M79.644 Pain in right finger(s); W54.0XXA Bitten by dog, initial encounter; F17.200 Nicotine dependence, unspecified, uncomplicated
CPT/HCPCS: 99283; 96372; 90471 ×2; 73130; 90715; 90675; 90376; A9270 ×2; J2270; J2060; S0119

== ENCOUNTER 2019-04-23 22:10 | Emergency (ER) | payer MEDICARE ==
[2019-04-23] MEDS ORDERED: LORAZEPAM INJ 2 MG/1 ML VIAL IM ONE (22:48)
[2019-04-23] MEDS ORDERED: HYDROCODONE/ACETAMINOPHEN 5-325 MG TABLET PO ONE (22:49)
--- NOTE | 2019-04-23 22:49 | ER Document Report ---
ED General - General Stated Complaint: PSYCH Time Seen by Provider: 04/23/19 22:39 Primary Care Provider: DANIAL LABOY MD [ACTIVE STAFF] - Follow up in 3-5 days Notes: Patient is a 48-year-old male that presents to the emergency department for chief complaint of frustration and anxiety. Patient states that he became very frustrated, and anxious, because his service dog was taken to animal control custody today, he states he is had his dog for several years, they are very close, and it does help calm him, however he became very irritated because the reason surrounding why the dog was taken, he states that his household appliance assembler at home had left the door open the dog got out and in the control had quarantine the dog, he had apparently killed another dog at a dog park in [place], and because of that he has to be held for 10 days. This is become very difficult for the patient, he is was anxious, he did make statements in passing that it made him so angry that he would like to kill someone, but he denies homicidal or suicidal ideations at this time, he states that he was just very frustrated. He denies any hallucinations. He states he typically takes Xanax 0.25 mg twice daily, but he states he could not find his medication, which is making things worse when he comes to his anxiety. He denies any other recent complaints such as fevers, chills, abdominal pain, nausea, vomiting. He states he does feel more calm already. Past Medical History: PTSD, transverse myelitis, schizophrenia Past Surgical History: Suprapubic catheter Social History: Former smoker, alcohol or drug use. Family History: Reviewed and noncontributory for presenting illness Allergies: Reviewed, see documented allergy list. REVIEW OF SYSTEMS: Other than noted above, the 12 point review of systems was reviewed with the patient and were negative, all pertinent findings are included in the HPI. PHYSICAL EXAMINATION: Vital signs reviewed, nursing noted reviewed. GENERAL: Well-appearing, well-nourished and in no acute distress. HEAD: Atraumatic, normocephalic. EYES: Eyes appear normal, extraocular movements intact, sclera anicteric, conjunctiva are normal. ENT: nares patent, oropharynx clear without exudates. Moist mucous membranes. NECK: Normal range of motion, supple without lymphadenopathy LUNGS: Breath sounds clear to auscultation bilaterally and equal. No wheezes rales or rhonchi. HEART: Regular rate and rhythm without murmurs ABDOMEN: Soft, nontender, normoactive bowel sounds. No rebound, guarding, or rigidity. No masses appreciated. Suprapubic catheter in place, draining well, no signs of infection. EXTREMITIES: Bilateral lower extremity weakness, +4/5 bilaterally, at baseline for this patient, and unchanged, sensation diminished as well, but unchanged. The upper extremities are unremarkable. NEUROLOGICAL: No focal neurological deficits. Moves all extremities spontaneously Motor and sensory grossly intact on exam. PSYCH: Patient makes good eye contact, hold conversation, not dysphoric mood, normal affect. SKIN: Warm, Dry, normal turgor, no rashes or lesions noted on exposed skin, multiple tattoos TRAVEL OUTSIDE OF THE [place].S[place] IN LAST 30 DAYS: No - Related Data Allergies/Adverse Reactions: No Known Allergies Allergy (Verified 04/23/19 13:16) Past Medical History - Social History Smoking Status: Former Smoker Family History: None, Reviewed & Not Pertinent, Hypertension Renal/ Medical History: Reports: Hx Kidney Stones. Denies: Hx Peritoneal Dialysis Psychiatric Medical History: Reports: Hx Bipolar Disorder, Hx Borderline Personality Disorder, Hx Depression Past Surgical History: Reports: Hx Cholecystectomy, Hx Genitourinary Surgery - Suprapubic catheter - Immunizations Immunizations up to date: Yes Hx Diphtheria, Pertussis, Tetanus Vaccination: Yes Physical Exam - Vital signs Vitals: Temp Pulse Resp BP Pulse Ox 97.6 F 79 22 H 150/82 H 98 04/23/19 22:26 04/23/19 22:26 04/23/19 22:26 04/23/19 22:26 04/23/19 22:26 Course - Re-evaluation Re-evalutation: Patient seen and examined, vital signs reviewed, this patient is very well-known to me, is come to the emergency department many times for different reasons, he does have a long history of PTSD, schizophrenia, he does have a strong relationship with his dog, and he seemed upset that the dog was taken away, but I did discuss with him at length, that he will get his dog back, he was asking for something for his nerves, he was given a dose of Ativan 1 mg IM, and [place] 5 mg / 325 mg for his back pain, which he has chronically, with a history of transverse myelitis. Reevaluated the patient, discussed with him again at length, plans going forward, he states he denies any suicidal homicidal ideations, states he would never harm himself or other people he is is very upset about having his dog taken away from him as he states he has a very close relationship with the dog, and has a hard time being away from. I discussed with him if he does have any thoughts of harming himself or others, he should return to the emergency department immediately or call 911, of which she was agreeable to. Patient was discharged to home. - Vital Signs Vital signs: Temp Pulse Resp BP Pulse Ox 97.6 F 79 22 H 150/82 H 98 04/23/19 22:26 04/23/19 22:26 04/23/19 22:26 04/23/19 22:26 04/23/19 22:26 Discharge - Discharge Clinical Impression: Anxiety Condition: Stable Disposition: HOME, SELF-CARE Instructions: Panic Attack ([facility]) Additional Instructions: Please follow-up with your psychiatrist to discuss your medications. Please try to rest at home, and if you have any suicidal or homicidal thoughts, please return to the emergency department immediately to be reevaluated. If you have any other further concerns regarding other conditions, or develop chest pain or shortness of breath, return to the emergency department. Referrals: DANIAL LABOY MD [ACTIVE STAFF] - Follow up in 3-5 days
[2019-04-24 02:50] VITALS: BP 153/103
== END 2019-04-24 02:05 | disposition home or self-care (01) ==
LOC: ER 22:10
DX: F41.9 Anxiety disorder, unspecified (principal); T42.4X6A Underdosing of benzodiazepines, initial encounter; Z91.128 Patient's intentional underdosing of medication regimen for other reason; Z91.14 Patient's other noncompliance with medication regimen; R53.1 Weakness; G37.3 Acute transverse myelitis in demyelinating disease of central nervous system; M54.9 Dorsalgia, unspecified; G89.29 Other chronic pain; Z87.891 Personal history of nicotine dependence
CPT/HCPCS: 99284; 96372; J2060; A9270

== ENCOUNTER 2019-04-26 15:36 | Emergency (ER) | payer MEDICARE ==
[2019-04-26 15:48] VITALS: BP 130/78
[2019-04-26] MEDS ORDERED: ALPRAZOLAM 0.25 MG TABLET PO ONE (16:31)
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
== END 2019-04-26 16:44 | disposition home or self-care (01) ==
LOC: ER 15:36
DX: Z76.0 Encounter for issue of repeat prescription (principal); F41.9 Anxiety disorder, unspecified
CPT/HCPCS: 99281; A9270

== ENCOUNTER 2019-05-01 00:47 | Emergency (ER) | payer MEDICARE ==
--- NOTE | 2019-05-01 05:06 | RADIOLOGY REPORT (SQ) ---
EXAM DESCRIPTION: XR KNEE 4 OR MORE VIEWS COMPLETED DATE/TME: 05/01/2019 00:50 CLINICAL HISTORY: 48 years Male, pain COMPARISON: 09/29/18 Findings: Moderate tricompartmental osteoarthritis. Bones, joints, and soft tissues of the RIGHT XR KNEE 4 OR MORE VIEWS appear otherwise unremarkable. IMPRESSION: No acute findings. Moderate osteoarthritis of the right knee.
[2019-05-01 05:38] VITALS: BP 119/64
--- NOTE | 2019-05-01 07:42 | ER Document Report ---
HPI - HPI Patient complains to provider of: R knee pain Time Seen by Provider: 05/01/19 07:29 Pain Level: 5 Context: 48-year-old male well-known to this emergency department with all medical problems and mental health issues presents with acute right knee pain. He is scheduled for total knee replacement on May 12. He says he is pain with ambulation but is able to bear weight on it. Patient denies any redness or warmth to the knee and is able to flex it. Patient denies any fevers or chills, denies any unilateral leg swelling, denies any pain out of proportion to movement, denies any acute shortness of breath or chest pain. No other complaints - REPRODUCTIVE Reproductive: DENIES: : Past Medical History - Social History Smoking Status: Unknown if Ever Smoked Family History: None, Reviewed & Not Pertinent, Hypertension Renal/ Medical History: Reports: Hx Kidney Stones. Denies: Hx Peritoneal Dialysis Psychiatric Medical History: Reports: Hx Bipolar Disorder, Hx Borderline Personality Disorder, Hx Depression Past Surgical History: Reports: Hx Cholecystectomy, Hx Genitourinary Surgery - Suprapubic catheter - Immunizations Immunizations up to date: Yes Hx Diphtheria, Pertussis, Tetanus Vaccination: Yes Vertical Provider Document - CONSTITUTIONAL Notes: PHYSICAL EXAMINATION: Reviewed vital signs and charting by RN GENERAL: Alert, interacts well. No acute distress. HEAD: Normocephalic, atraumatic. EYES: Pupils equal and round. Extraocular movements intact. ENT: Oral mucosa moist, tongue midline. NECK: Full range of motion. Trachea midline. LUNGS: Clear to auscultation bilaterally, no wheezes, rales, or rhonchi. No respiratory distress. HEART: Regular rate and rhythm. No murmur EXTREMITIES: Moves all 4 extremities spontaneously. Right knee edema consistent with an effusion, no redness or warmth, limited range of motion but patient is able to flex the knee. PSYCH: Normal affect, normal mood. SKIN: Warm, dry, normal turgor. No rashes or lesions noted. - INFECTION CONTROL TRAVEL OUTSIDE OF THE [place] IN LAST 30 DAYS: No Course - Re-evaluation Re-evalutation: 05/01/19 07:56 Generally well-appearing. X-ray negative for any major fracture dislocation. I have very low suspicion for DVT, septic arthritis of the left knee, or any concerning pathology. He was placed in a knee immobilizer and reported great relief. He is stable for discharge. - Vital Signs Vital signs: Temp Pulse Resp BP Pulse Ox 97.6 F 73 20 119/64 98 05/01/19 05:36 05/01/19 05:36 05/01/19 05:36 05/01/19 05:36 05/01/19 05:36 Discharge - Discharge Clinical Impression: Right knee pain Qualifiers: Chronicity: acute Qualified Code(s): M25.561 - Pain in right knee Condition: Good Disposition: HOME, SELF-CARE Instructions: Ice & Elevation ([facility]), Knee Immobilizing Splint ([facility]) Additional Instructions: You are seen the emergency department this morning for was taken did not show any major dislocation or fracture. This is reassuring and will put a knee brace on your knee to help support it and taking it your surgery. If you develop acute numbness/tingling/paralysis of your right leg, your knee becomes red and hot and you are unable to move it at all, you develop fevers with that, your toes start to turn purple and you are losing circulation, please immediately return to the emergency department for reevaluation.
[2019-05-01] MEDS ORDERED: HYDROCODONE/ACETAMINOPHEN 5-325 MG (6 TAB/ER DISP) PO PRN ×2 (07:45→08:04)
== END 2019-05-01 07:54 | disposition home or self-care (01) ==
LOC: ER 00:47
DX: M25.561 Pain in right knee (principal); M25.461 Effusion, right knee
CPT/HCPCS: 99283; 73564; L1830; A9270

== ENCOUNTER 2019-05-06 00:02 | Emergency (ER) | payer MEDICARE ==
[2019-05-06 05:00] LABS: AMORPHOUS SEDIMENT,URINE TRACE /HPF; APPEARANCE,URINE CLOUDY; BILIRUBIN,URINE NEGATIVE (NEGATIVE); COLOR,URINE YELLOW; GLUCOSE, URINE 150 mg/dL (NEGATIVE); KETONES,URINE TRACE mg/dL (NEGATIVE); LEUKOCYTE ESTERASE,URINE LARGE (NEGATIVE); NITRITE,URINE POSITIVE (NEGATIVE); PROTEIN,URINE 100 mg/dL (NEGATIVE); URINE SPECIFIC GRAVITY 1.021
--- NOTE | 2019-05-06 06:36 | ER Document Report ---
ED General - General Chief Complaint: Urinary Problem Stated Complaint: UTI SYMPTOMS/RIGHT KNEE PAIN Time Seen by Provider: 05/06/19 06:17 TRAVEL OUTSIDE OF THE [place] IN LAST 30 DAYS: No - HPI Patient complains to provider of: Possible UTI right knee pain Notes: Patient presents today for possible UTI right knee pain. Patient states he finished Cipro approximately 2 weeks ago. Patient states he normally comes in and receives an antibiotic. Patient states feeling hot and cold. Patient is afebrile upon being triaged into the hospital. Patient is resting comfortably upon my evaluation. Patient denies any dysuria. Patient does have indwelling suprapubic catheter. Patient also complains of right knee pain. Patient states that saw his orthopedic physician Dr. Fink who had prescribed him tramadol for his pain states that he flushed his tramadol down the toilet Dr. Fink is currently has the patient scheduled for pain management follow-up. Patient denies any nausea vomiting diarrhea. Patient otherwise resting comfortably. - Related Data Allergies/Adverse Reactions: No Known Allergies Allergy (Verified 05/06/19 00:04) Past Medical History - Social History Smoking Status: Unknown if Ever Smoked Family History: None, Reviewed & Not Pertinent, Hypertension Patient has suicidal ideation: No Patient has homicidal ideation: No Renal/ Medical History: Reports: Hx Kidney Stones. Denies: Hx Peritoneal Dialysis Psychiatric Medical History: Reports: Hx Bipolar Disorder, Hx Borderline Personality Disorder, Hx Depression Past Surgical History: Reports: Hx Cholecystectomy, Hx Genitourinary Surgery - Suprapubic catheter - Immunizations Immunizations up to date: Yes Hx Diphtheria, Pertussis, Tetanus Vaccination: Yes Review of Systems - Review of Systems Constitutional: No symptoms reported EENT: No symptoms reported Cardiovascular: No symptoms reported Respiratory: No symptoms reported Gastrointestinal: No symptoms reported Genitourinary: Dysuria Male Genitourinary: No symptoms reported Musculoskeletal: Other - knee pain Skin: No symptoms reported Hematologic/Lymphatic: No symptoms reported Neurological/Psychological: No symptoms reported Physical Exam - Vital signs Vitals: Temp Pulse Resp BP Pulse Ox 98.1 F 92 16 132/78 H 98 05/06/19 00:08 05/06/19 00:08 05/06/19 00:08 05/06/19 00:08 05/06/19 00:08 - General General appearance: Appears well, Other - HEENT Head: Normocephalic Eyes: Normal - Respiratory Respiratory status: No respiratory distress Chest status: Nontender Breath sounds: Normal Chest palpation: Normal - Cardiovascular Rhythm: Regular Heart sounds: Normal auscultation - Abdominal Inspection: Normal Distension: No distension Tenderness: Nontender Organomegaly: No organomegaly Notes: Suprapubic catheter in place no signs of erythema redness or infection. - Back Back: Normal - Extremities General upper extremity: Normal inspection, Nontender General lower extremity: Normal inspection, Nontender, Normal ROM, Other - Right knee with a tattoo of spiderweb over knee slight swelling compared to the left there is no redness erythema or warmth of the right knee. - Neurological Neuro grossly intact: Yes Cognition: Normal Orientation: AAOx4 Holly Coma Scale Eye Opening: Spontaneous [place] Coma Scale Verbal: Oriented [place] Coma Scale Motor: Obeys Commands Holly Coma Scale Total: 15 - Psychological Associated symptoms: Normal affect, Normal mood - Skin Skin Temperature: Warm Skin Moisture: Dry Course - Re-evaluation Re-evalutation: 05/06/19 06:37 Patient urinalysis does have positive nitrates I did review the patient's multiple previous urine cultures showing what looks to be more likely colonization with bacteria due to suprapubic catheter with ESBL no bacteria. Again patient is afebrile patient does not look septic at this time. Vital signs are within normal limits explained to the patient at this time we will send the urine for culture. Patient is to follow-up with his primary care ph ysician for further evaluation. Patient is to continue with his home medication regiment for his chronic right knee pain. 05/06/19 13:32 I was notified by the nursing staff that upon the patient's discharge patient started communicating threats towards myself stating that "I know the doctor looks like and I will find him in the parking lot". Patient was discharged jpd and security team was notified. Official report was taken down by the [facility] officer along with official report to be passed along to her supervising staff. - Vital Signs Vital signs: Temp Pulse Resp BP Pulse Ox 97.5 F 76 16 134/72 H 99 05/06/19 07:16 05/06/19 07:16 05/06/19 00:08 05/06/19 07:16 05/06/19 07:16 - Laboratory Laboratory results interpreted by me: 05/06/19 04:28 Urine Protein 100 H Urine Glucose (UA) 150 H Urine Ketones TRACE H Urine Nitrite POSITIVE H Urine Urobilinogen 4.0 H Ur Leukocyte Esterase LARGE H Discharge - Discharge Clinical Impression: Suprapubic catheter Right knee pain Qualifiers: Chronicity: acute Qualified Code(s): M25.561 - Pain in right knee Condition: Good Disposition: HOME, SELF-CARE Instructions: Arthritis ([facility]) Additional Instructions: Please follow-up with your primary care physician for your urine culture results in the next 48 hours. At this time the urinalysis not indicative of a urinary tract infection I will highly recommend she continue to take your medications as prescribed. Please follow-up with your orthopedic doctor for continued evaluation of your knee please keep your appointments with your pain management doctor that your orthopedic doctor has scheduled for you.
[2019-05-06 07:31] VITALS: BP 134/72
== END 2019-05-06 07:20 | disposition home or self-care (01) ==
LOC: ER 00:02
DX: M25.561 Pain in right knee (principal); G89.29 Other chronic pain; R30.0 Dysuria; Z93.6 Other artificial openings of urinary tract status
CPT/HCPCS: 81001; 99283

== ENCOUNTER 2019-05-07 22:29 | Emergency (ER) | payer MEDICARE ==
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
--- NOTE | 2019-05-08 02:28 | ER Document Report ---
ED General - General Chief Complaint: Hand Injury Stated Complaint: HAND INJURY Time Seen by Provider: 05/08/19 02:26 TRAVEL OUTSIDE OF THE [place] IN LAST 30 DAYS: No - Related Data Allergies/Adverse Reactions: No Known Allergies Allergy (Verified 05/06/19 00:04) Past Medical History - Social History Family History: None, Reviewed & Not Pertinent, Hypertension Renal/ Medical History: Reports: Hx Kidney Stones. Denies: Hx Peritoneal Dialysis Psychiatric Medical History: Reports: Hx Bipolar Disorder, Hx Borderline Personality Disorder, Hx Depression Past Surgical History: Reports: Hx Cholecystectomy, Hx Genitourinary Surgery - Suprapubic catheter - Immunizations Immunizations up to date: Yes Hx Diphtheria, Pertussis, Tetanus Vaccination: Yes Physical Exam - Vital signs Vitals: Temp Pulse Resp BP Pulse Ox 98.4 F 90 20 139/84 H 98 05/07/19 23:10 05/07/19 23:10 05/07/19 23:10 05/07/19 23:10 05/07/19 23:10 Course - Vital Signs Vital signs: Temp Pulse Resp BP Pulse Ox 98.4 F 90 20 139/84 H 98 05/07/19 23:10 05/07/19 23:10 05/07/19 23:10 05/07/19 23:10 05/07/19 23:10 Discharge - Discharge Clinical Impression: Hand injury Qualifiers: Encounter type: initial encounter Condition: Stable Disposition: HOME, SELF-CARE Instructions: Contusion ([facility]) Additional Instructions: Your x-rays today were negative for any acute fracture, please follow-up with the primary care, you may apply ice or warm compresses to your hand to help reduce any swelling or pain. You can also take [id number] anti- inflammatory medication such as Motrin or Aleve to help with inflammation and pain. Referrals: DANIAL LABOY MD [ACTIVE STAFF] - Follow up in 3-5 days
[2019-05-08 02:37] VITALS: BP 129/84
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
--- NOTE | 2019-05-08 03:52 | RADIOLOGY REPORT (SQ) ---
CT head without contrast on 05/08/2019 at 3:24 AM CLINICAL INDICATION: Pain after fall TECHNIQUE: Multiple axial images are obtained throughout the head without the administration of contrast. This exam was performed according to our departmental dose-optimization program, which includes automated exposure control, adjustment of the mA and/or kV according to patient size and/or use of iterative reconstruction technique. Total DLP is 1123.58 mGy*cm. COMPARISON: 04/13/2019 FINDINGS: There is no hydrocephalus. There is no CT evidence of acute infarct. There is no hemorrhage. There are no abnormal extra-axial fluid collections. There is no mass, mass effect or midline shift. No acute bony abnormality is noted. Small mucous retention cysts are noted in the right sphenoid and left maxillary sinus. Old right facial fractures are partially imaged. IMPRESSION: No acute intracranial abnormality.
--- NOTE | 2019-05-08 03:52 | RADIOLOGY REPORT (SQ) ---
EXAM DESCRIPTION: [facility]: CT CERVICAL SPINE WITHOUT IV CONTRAST CLINICAL HISTORY: 48 years Male; fall, pain TECHNIQUE: Noncontrast cervical spine CT with sagittal and coronal reconstructions. All CT scans at this facility use dose modulation, iterative reconstruction, and/or weight based dosing when appropriate to reduce radiation dose to as low as reasonably achievable. COMPARISON: CT 10/17/2018, 04/13/2019 FINDINGS: Alignment is anatomic. Anterior fixation hardware at C5-C6, status post ACDF, remains in place without evidence for loosening. No lytic bone changes. No prevertebral edema. There is no acute fracture of the cervical spine. No epidural hematoma. IMPRESSION: 1. No acute cervical spine fracture or subluxation. 2. Previous C5-C6 ACDF, as on prior exam
== END 2019-05-08 04:28 | disposition home or self-care (01) ==
LOC: ER 22:29
DX: S69.91XA Unspecified injury of right wrist, hand and finger(s), initial encounter (principal); Y04.2XXA Assault by strike against or bumped into by another person, initial encounter; S09.90XA Unspecified injury of head, initial encounter; W19.XXXA Unspecified fall, initial encounter; Y92.238 Other place in hospital as the place of occurrence of the external cause; F17.200 Nicotine dependence, unspecified, uncomplicated
CPT/HCPCS: 99284; 73130; 70450; 72125; L0120

== ENCOUNTER 2019-05-14 15:01 | Emergency (ER) | payer MEDICARE ==
[2019-05-14 15:11] VITALS: BP 141/81
[2019-05-14] MEDS ORDERED: HYDROCODONE/ACETAMINOPHEN 5-325 MG TABLET PO ONE (16:19)
--- NOTE | 2019-05-14 16:20 | ER Document Report ---
ED Wound - General Chief Complaint: Wound Infection Stated Complaint: FINGER INJURY Time Seen by Provider: 05/14/19 16:12 Primary Care Provider: PHAN MCCANN MD [ACTIVE STAFF] - Follow up as needed LUKE PEREZ MD [ACTIVE STAFF] - Follow up as needed Mode of Arrival: Ambulatory Information source: Patient TRAVEL OUTSIDE OF THE [place] IN LAST 30 DAYS: No - HPI Notes: 48-year-old male presents with complaints of right second finger pain after he accidentally had a lightbulb break fall in his hand. Tetanus is up-to-date. Reports some swelling to the area. Denies any numbness and tingling in fingers or hand. Reports swelling is worse today. No open wounds or drainage. Patient states he did take amoxicillin yesterday to be "cautious". Denies fevers, chills, chest pain,palpitations, shortness of breath, dyspnea, nausea, vomiting, diarrhea, abdominal pain, neck pain, weakness, bowel or bladder dysfunction, saddle anesthesia, numbness or tingling in bilateral upper or lower extremities equally, muscle paralysis, weakness in bilateral upper or lower extremities equally or rash. - Related Data Allergies/Adverse Reactions: No Known Allergies Allergy (Verified 05/06/19 00:04) Past Medical History - General Information source: Patient - Social History Smoking Status: Current Every Day Smoker Chew tobacco use (# tins/day): No Frequency of alcohol use: Social Family History: None, Reviewed & Not Pertinent, Hypertension Patient has suicidal ideation: No Patient has homicidal ideation: No Renal/ Medical History: Reports: Hx Kidney Stones. Denies: Hx Peritoneal Dialysis Psychiatric Medical History: Reports: Hx Bipolar Disorder, Hx Borderline Personality Disorder, Hx Depression Past Surgical History: Reports: Hx Cholecystectomy, Hx Genitourinary Surgery - Suprapubic catheter - Immunizations Immunizations up to date: Yes Hx Diphtheria, Pertussis, Tetanus Vaccination: Yes Review of Systems - Review of Systems Constitutional: No symptoms reported EENT: No symptoms reported Cardiovascular: No symptoms reported Respiratory: No symptoms reported Gastrointestinal: No symptoms reported Genitourinary: No symptoms reported Male Genitourinary: No symptoms reported Musculoskeletal: No symptoms reported Skin: See HPI Hematologic/Lymphatic: No symptoms reported Neurological/Psychological: No symptoms reported Physical Exam - Vital signs Vitals: Temp Pulse Resp BP Pulse Ox 97.3 F 99 16 141/81 H 94 05/14/19 15:08 05/14/19 15:08 05/14/19 15:08 05/14/19 15:08 05/14/19 15:08 - Notes Notes: PHYSICAL EXAMINATION: GENERAL: Well-appearing, well-nourished and in no acute distress. HEAD: Atraumatic, normocephalic. EYES: Pupils equal round and reactive to light, extraocular movements intact, sclera anicteric, conjunctiva are normal. ENT: Nares patent, oropharynx clear without exudates. Moist mucous membranes. NECK: Normal range of motion, supple without lymphadenopathy LUNGS: Breath sounds clear to auscultation bilaterally and equal. No wheezes rales or rhonchi. HEART: Regular rate and rhythm without murmurs ABDOMEN: Soft, nontender, nondistended abdomen. No guarding, no rebound. No masses appreciated. Musculoskeletal: Normal range of motion, no pitting or edema. No cyanosis. No noted pain with flexion, extension, abduction, adduction of right phalanges. scant erythema to distal right phalange with abrasion. Full motor and sensory function in [place]. [employer] + 2 BUE equally. Snuffbox tenderness negative on right. . Ulnar and radial pulses + 2 BUE equally. DTRs +2 in bilateral upper extremities equally. No deformity noted of hand or wrist bilaterally. Normal flexion, extension, ulnar/radial deviation. Negative kanavels sign. No open wounds or drainage from wrist. No vascular compromise. full motor and sensory function with medial, radial and ulnar nerves bilaterally and equally. NEUROLOGICAL: Cranial nerves grossly intact. Normal speech, normal gait. Normal sensory, motor exams PSYCH: Normal mood, normal affect. SKIN: Warm, Dry, normal turgor, no rashes or lesions noted. Course - Re-evaluation Re-evalutation: 05/14/19 16:28 48-year-old man afebrile vital stable no distress for evaluation of right second finger pain after he said he broke a light bulb in his hand. X-ray of finger negative for any foreign body, no fracture dislocation. Will prescribe patient antibiotic therapy for 5 days, wash with soap and water, apply heat 20 minutes on 20 minutes off several times a day, monitor for worsening symptoms. Follow- up with primary care provider within 24 to 48 hours. I have reevaluated this patient multiple times and no significant life threatening changes, no signs of toxicity, sepsis or peritonitis are noted. The patient and I have discussed the diagnosis and risks, and we agree with discharging home and close follow-up. We also discussed returning to the Emergency Department immediately if new or worsening symptoms occur with the understanding that symptoms and presentations can change. At this time will discharge with return precautions and follow-up recommendations. Verbal discharge instructions given a the bedside and opportunity for questions given. We have discussed the symptoms which are most concerning (e.g., worsening pain, increased swelling, fever, hand numbness, tingling, chest pain, shortness of breath) that necessitate immediate return. Medication warnings reviewed. All questions and concerns answered by this provider. Patient is in agreement with this plan and has verbalized understanding of return precautions and the need for primary care follow-up in the next 24-72 hours. Patient verbalized understanding of plan of care and agree with plan of care. After performing a Medical Screening Examination, I estimate there is LOW risk for OPEN FRACTURE, COMPARTMENT SYNDROME, TENDON RUPTURE, ACUTE NEUROVASCULAR INJURY, or RETAINED FOREIGN BODY, thus I consider the discharge disposition reasonable. Also, there is no evidence or peritonitis, sepsis, or toxicity. I have reevaluated this patient multiple times and no significant life threatening changes are noted. The patient and I have discussed the diagnosis and risks, and we agree with discharging home with close follow-up with the understanding that symptoms and presentations can change. We also discussed returning to the Emergency Department immediately if new or worsening symptoms occur. We have discussed the symptoms which are most concerning (e.g., changing or worsening pain, fever, numbness, weakness, cool or painful digits) that necessitate immediate return. 05/14/19 17:06 - Vital Signs Vital signs: Temp Pulse Resp BP Pulse Ox 97.3 F 99 16 141/81 H 94 05/14/19 15:08 05/14/19 15:08 05/14/19 15:08 05/14/19 15:08 05/14/19 15:08 Discharge - Discharge Clinical Impression: Cellulitis Condition: Stable Disposition: HOME, SELF-CARE Instructions: Prophylactic Antibiotic ([facility]), Soap Cleansing ([facility]), Sprained Finger ([facility]) Additional Instructions: On physical water twice a day, monitor for any redness, swelling, drainage, apply heat 20 minutes on 20 minutes off several times a day. Take antibiotic as directed, take with food to prevent loose stool. Follow-up with primary care provider in the next 24 to 48 hours. Return immediately for any new or worsening symptoms. Follow up with primary care provider, call tomorrow to make followup appointment. Prescriptions: Sulfamethoxazole/Trimethoprim [Bactrim Ds Tablet] 1 each PO BID #10 tablet Referrals: PHAN MCCANN MD [ACTIVE STAFF] - Follow up as needed LUKE PEREZ MD [ACTIVE STAFF] - Follow up as needed
--- NOTE | 2019-05-14 16:49 | RADIOLOGY REPORT (SQ) ---
EXAM DESCRIPTION: FINGER RIGHT COMPLETED DATE/TIME: 05/14/2019 4:39 pm REASON FOR STUDY: 2nd finger, r/o finger COMPARISON: None. NUMBER OF VIEWS: Three views. TECHNIQUE: AP, lateral, and oblique images acquired of the right second finger. LIMITATIONS: None. FINDINGS: MINERALIZATION: Normal. BONES: No acute fracture or dislocation. No worrisome bone lesions. SOFT TISSUES: No soft tissue swelling. Tiny laceration along the palmar aspect of the right index fin diane near the DIP joint. No radiopaque foreign body. OTHER: No other significant finding. IMPRESSION: Tiny laceration along the palmar aspect of the right index finger near the DIP joint. N o radiopaque foreign body COMMENT: SITE OF TRAUMA/COMPLAINT MARKED/STAMP COMPLETED: YES. TECHNICAL DOCUMENTATION: JOB ID: [id number] [employer]- All Rights Reserved Reading location - IP/workstation name: [email or web address]
== END 2019-05-14 17:12 | disposition home or self-care (01) ==
LOC: ER 15:01
DX: L03.113 Cellulitis of right upper limb (principal); M79.644 Pain in right finger(s); F17.200 Nicotine dependence, unspecified, uncomplicated; W19.XXXA Unspecified fall, initial encounter
CPT/HCPCS: 99283; 73140; A9270

== ENCOUNTER 2019-06-03 13:49 | Emergency (ER) | payer MEDICARE ==
[2019-06-03] MEDS ORDERED: MORPHINE SULFATE 10 MG/ML INJ IV ONE (14:19)
[2019-06-03] MEDS ORDERED: PROMETHAZINE HCL INJ 25 MG/1 ML VIAL IV ONE (14:19)
--- NOTE | 2019-06-03 14:27 | ER Document Report ---
ED Medical Screen (RME) - General Chief Complaint: Nausea/Vomiting/Diarrhea Stated Complaint: VOMITING Time Seen by Provider: 06/03/19 14:09 Mode of Arrival: Ambulatory Information source: Patient Notes: Pt is a 48 year old male with a suprapubic catheter who presents with bladder and right kidney pain, nausea and vomiting. TRAVEL OUTSIDE OF THE [place] IN LAST 30 DAYS: No - Related Data Allergies/Adverse Reactions: No Known Allergies Allergy (Verified 06/03/19 13:53) Past Medical History - General Information source: Patient - Social History Chew tobacco use (# tins/day): No Frequency of alcohol use: None Drug Abuse: None Family history: Reviewed & Not Pertinent Renal/ Medical History: Reports: Hx Kidney Stones. Denies: Hx Peritoneal Dialysis Psychiatric Medical History: Reports: Hx Bipolar Disorder, Hx Borderline Personality Disorder, Hx Depression, Hx Schizophrenia Past Surgical History: Reports: Hx Cholecystectomy, Hx Genitourinary Surgery - Suprapubic catheter - Immunizations Immunizations up to date: Yes Hx Diphtheria, Pertussis, Tetanus Vaccination: Yes History of Influenza Vaccine for 08/2017 - 01/2018 Season: Unknown Review of Systems - Review of Systems Gastrointestinal: See HPI Genitourinary: See HPI Physical Exam - Vital signs Vitals: Temp Pulse Resp BP Pulse Ox 98.1 F 94 14 159/75 H 98 06/03/19 13:59 06/03/19 13:59 06/03/19 13:59 06/03/19 13:59 06/03/19 13:59 - Notes Notes: PHYSICAL EXAMINATION: GENERAL: Well-appearing and in no acute distress. ABDOMEN: Soft, suprapubic tenderness. No guarding, no rebound Course - Vital Signs Vital signs: Temp Pulse Resp BP Pulse Ox 98.1 F 94 14 159/75 H 98 06/03/19 13:59 06/03/19 13:59 06/03/19 13:59 06/03/19 13:59 06/03/19 13:59
[2019-06-03 15:11] LABS: ABSOLUTE BASOPHILS # (AUTO) 0.1 10^3/uL (0.0-0.2); ABSOLUTE EOSINOPHILS # (AUTO) 0.2 10^3/uL (0.0-0.6); ABSOLUTE LYMPHOCYTES (AUTO) 1.1 10^3/uL (0.5-4.7); ABSOLUTE MONOCYTES (AUTO) 0.6 10^3/uL (0.1-1.4); BASOPHILS % (AUTO) 1.4 % (0-2); EOSINOPHILS % (AUTO) 2.8 % (0-6); HEMATOCRIT 37.8 % (37.9-51.0); LYMPHOCYTES % (AUTO) 18.8 % (13-45); MEAN CORPUSCULAR HEMOGLOBIN 23.7 pg (27.0-33.4); MEAN CORPUSCULAR HGB CONC 31.8 g/dL (32.0-36.0); MEAN CORPUSCULAR VOLUME 74 fl (80-97); MONOCYTES % (AUTO) 9.7 % (3-13); PLATELET COUNT 323 10^3/uL (150-450); RED BLOOD COUNT 5.08 10^6/uL (4.35-5.55); RED CELL DISTRIBUTION WIDTH 18.4 % (11.5-14.0); SEGMENTED NEUTROPHILS % (AUTO) 67.3 % (42-78); TOTAL CELLS COUNTED % (AUTO) 100 %
[2019-06-03 15:25] LABS: ALANINE AMINOTRANSFERASE 24 U/L (21-72); ALBUMIN 3.8 g/dL (3.5-5.0); ALKALINE PHOSPHATASE 66 U/L (38-126); ANION GAP 7 (5-19); ASPARTATE AMINO TRANSFERASE 22 U/L (17-59); BILIRUBIN,DIRECT 0.2 mg/dL (0.0-0.4); BILIRUBIN,TOTAL 0.3 mg/dL (0.2-1.3); BLOOD UREA NITROGEN 12 mg/dL (7-20); CALCIUM 9.1 mg/dL (8.4-10.2); CARBON DIOXIDE 26 mmol/L (22-30); CHLORIDE 104 mmol/L (98-107); GLUCOSE 91 mg/dL (75-110); POTASSIUM 3.9 mmol/L (3.6-5.0); TOTAL PROTEIN 6.3 g/dL (6.3-8.2)
[2019-06-03] MEDS ORDERED: ACETAMINOPHEN 325 MG TABLET PO ONE (18:35)
--- NOTE | 2019-06-03 18:35 | ER Document Report ---
ED General - General Chief Complaint: Nausea/Vomiting/Diarrhea Stated Complaint: VOMITING Time Seen by Provider: 06/03/19 14:09 Primary Care Provider: DANIAL LABOY MD [Primary Care Provider] - Follow up as needed Mode of Arrival: Ambulatory TRAVEL OUTSIDE OF THE [place] IN LAST 30 DAYS: No - HPI Notes: Patient is a 48-year-old male that presents to the emergency department for chief complaint of suprapubic abdominal pain. Patient has history of transverse myelitis resulting in suprapubic Vo catheter. He states he has had ongoing urinary tract infections. His current catheter was supposed to be changed recently but he is not currently with a [facility] doctor and does not have an appointment with his urologist for another 3 weeks therefore it has not been changed. He states yesterday he began having increased pain in his suprapubic region. He had 2 episodes of emesis yesterday and 1 today. He reports 4 episodes of diarrhea since yesterday as well. He denies any fever, chills, chest pain, shortness of breath, cough and congestion. Patient states he used to be on strong pain medication but that was stopped recently. He has not taken any medicine at home for his symptoms. Patient also states intermittent pain on his right side which he relates to a muscle strain from vomiting. Past Medical History: Reviewed in chart Past Surgical History: Suprapubic Vo catheter Social History: Reviewed in chart Family History: Reviewed and noncontributory for presenting illness Allergies: Reviewed, see documented allergy list. REVIEW OF SYSTEMS: CONSTITUTIONAL : No fever No chills No diaphoresis No recent illness EENT: No vision changes No congestion No sore throat CARDIOVASCULAR: No chest pain No palpitations RESPIRATORY: No shortness of breath No cough No difficulty breathing GASTROINTESTINAL: abdominal pain nausea vomiting diarrhea GENITOURINARY: No dysuria No hematuria No difficulty urinating MUSCULOSKELETAL: No back pain No leg pain No arm pain SKIN: No rashes No lesions LYMPHATIC: No swollen, enlarged glands. NEUROLOGICAL: No lightheadedness No headache No weakness No paresthesias PSYCHIATRIC: No anxiety No depression PHYSICAL EXAMINATION: Vital signs reviewed, nursing noted reviewed. GENERAL: Well-appearing, well-nourished and in no acute distress. HEAD: Atraumatic, normocephalic. EYES: Eyes appear normal, extraocular movements intact, sclera anicteric, conjunctiva are normal. ENT: nares patent, oropharynx clear without exudates. Moist mucous membranes. NECK: Normal range of motion, supple without lymphadenopathy LUNGS: Breath sounds clear to auscultation bilaterally and equal. No wheezes rales or rhonchi. HEART: Regular rate and rhythm without murmurs ABDOMEN: Soft, mild suprapubic tenderness, normoactive bowel sounds. No rebo und, guarding, or rigidity. No masses appreciated. EXTREMITIES: Nontender, good range of motion, no pitting or edema. NEUROLOGICAL: No focal neurological deficits. GCS 15 PSYCH: Normal mood, normal affect. SKIN: Warm, Dry, normal turgor, suprapubic catheter ostomy clean dry intact without purulent drainage or surrounding erythema - Related Data Allergies/Adverse Reactions: No Known Allergies Allergy (Verified 06/03/19 13:53) Past Medical History - General Information source: Patient - Social History Smoking Status: Never Smoker Chew tobacco use (# tins/day): No Frequency of alcohol use: None Drug Abuse: None Family History: None, Reviewed & Not Pertinent, Hypertension Patient has suicidal ideation: No Patient has homicidal ideation: No Renal/ Medical History: Reports: Hx Kidney Stones. Denies: Hx Peritoneal Dialysis Psychiatric Medical History: Reports: Hx Bipolar Disorder, Hx Borderline Personality Disorder, Hx Depression, Hx Schizophrenia Past Surgical History: Reports: Hx Cholecystectomy, Hx Genitourinary Surgery - Suprapubic catheter - Immunizations Immunizations up to date: Yes Hx Diphtheria, Pertussis, Tetanus Vaccination: Yes Physical Exam - Vital signs Vitals: Temp Pulse Resp BP Pulse Ox 98.1 F 94 14 159/75 H 98 06/03/19 13:59 06/03/19 13:59 06/03/19 13:59 06/03/19 13:59 06/03/19 13:59 Course - Re-evaluation Re-evalutation: 06/03/19 18:34 Vitals reviewed. Nursing notes reviewed. Patient's lab work is unremarkable. He has no electrolyte abnormalities or renal insufficiency. Patient does not have any leukocytosis to suggest severe infection. He is otherwise well- appearing. He did receive morphine and Zofran in triage and is now requesting crackers and Pepsi stating he feels improvement. Patient reports he was recently on fosfomycin for UTI but does not know when he finished that prescription. 06/03/19 19:00 I reviewed patient's previous culture results which did show significant amount of resistance. His urinalysis today does have nitrate and leuk positive findings. 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 Patient symptoms of suprapubic pain to suggest an early infection however he has a normal WBC count and vital signs. He is not septic or toxic in appearance. I did discuss his most recent urine culture results as well as clinical presentation with his primary care doctor, Dr. Laboy. He recommends starting him on Keflex 500 twice daily for 7 days because of his colonization. He will follow on patient's urine culture. He states he is also trying to get patient in with urology and infectious disease. I am in agreement with this plan of care. Patient will be discharged home for further outpatient management. Laboratory 06/03/19 06/03/19 06/03/19 14:45 14:45 18:05 WBC 6.0 RBC 5.08 Hgb 12.0 L Hct 37.8 L MCV 74 L MCH 23.7 L MCHC 31.8 L RDW 18.4 H Plt Count 323 Seg Neutrophils % 67.3 Lymphocytes % 18.8 Monocytes % 9.7 Eosinophils % 2.8 Basophils % 1.4 Absolute Neutrophils 4.0 Absolute Lymphocytes 1.1 Absolute Monocytes 0.6 Absolute Eosinophils 0.2 Absolute Basophils 0.1 Sodium 137.3 Potassium 3.9 Chloride 104 Carbon Dioxide 26 Anion Gap 7 BUN 12 Creatinine 0.82 Est GFR ( Amer) > 60 Est GFR (Non-Af Amer) > 60 Glucose 91 Calcium 9.1 Total Bilirubin 0.3 Direct Bilirubin 0.2 Neonat Total Bilirubin Not Reportable Neonat Direct Bilirubin Not Reportable Neonat Indirect Bili Not Reportable AST 22 ALT 24 Alkaline Phosphatase 66 Total Protein 6.3 Albumin 3.8 Urine Color YELLOW Urine Appearance CLOUDY Urine pH 8.0 Ur Specific [place] 1.013 Urine Protein 30 H Urine Glucose (UA) 150 H Urine Ketones NEGATIVE Urine Blood NEGATIVE Urine Nitrite POSITIVE H Urine Bilirubin NEGATIVE Urine Urobilinogen NEGATIVE Ur Leukocyte Esterase LARGE H Urine WBC (Auto) 42 Urine RBC (Auto) 2 Urine Bacteria (Auto) 3+ Squamous Epi Cells Auto <1 Triple Phos Cryst (Auto) MODERATE Urine Mucus (Auto) FEW Urine Ascorbic Acid NEGATIVE - Vital Signs Vital signs: Temp Pulse Resp BP Pulse Ox 98.1 F 94 14 159/75 H 98 06/03/19 13:59 06/03/19 13:59 06/03/19 13:59 06/03/19 13:59 06/03/19 13:59 - Laboratory Result Diagrams: 06/03/19 14:45 06/03/19 14:45 Laboratory results interpreted by me: 06/03/19 06/03/19 14:45 18:05 Hgb 12.0 L Hct 37.8 L MCV 74 L MCH 23.7 L MCHC 31.8 L RDW 18.4 H Urine Protein 30 H Urine Glucose (UA) 150 H Urine Nitrite POSITIVE H Ur Leukocyte Esterase LARGE H Discharge - Discharge Clinical Impression: Chronic UTI Condition: Stable Disposition: HOME, SELF-CARE Instructions: Urinary Tract Infection ([facility]) Additional Instructions: Please return to the emergency department if you have any worsening, or concern of your symptoms. Please return to the emergency department if you develop chest pain, difficulty breathing, severe abdominal pain, or ongoing vomiting. Please follow-up with your primary care physician in 2-3 days and any other recommended physicians. If prescribed, take all medications as directed. If you have any questions or concerns do not hesitate to return the emergency de partment for evaluation. Keep your appointment with urology Prescriptions: Cephalexin Monohydrate [Keflex 500 mg Capsule] 500 mg PO BID 7 Days capsule Referrals: DANIAL LABOY MD [Primary Care Provider] - Follow up in 3-5 days
[2019-06-03 18:51] LABS: APPEARANCE,URINE CLOUDY; BILIRUBIN,URINE NEGATIVE (NEGATIVE); COLOR,URINE YELLOW; GLUCOSE, URINE 150 mg/dL (NEGATIVE); KETONES,URINE NEGATIVE (NEGATIVE); LEUKOCYTE ESTERASE,URINE LARGE (NEGATIVE); NITRITE,URINE POSITIVE (NEGATIVE); PROTEIN,URINE 30 mg/dL (NEGATIVE); TRIPLE PHOSPHATE CRYSTAL,URINE MODERATE /HPF; URINE SPECIFIC GRAVITY 1.013; UROBILINOGEN,URINE NEGATIVE mg/dL (<2.0)
[2019-06-03] MEDS ORDERED: CEPHALEXIN 500 MG CAPSULE PO ONE (18:58)
[2019-06-03 19:23] VITALS: BP 140/77
== END 2019-06-03 19:24 | disposition home or self-care (01) ==
LOC: ER 13:49
DX: N39.0 Urinary tract infection, site not specified (principal); R10.30 Lower abdominal pain, unspecified; R11.2 Nausea with vomiting, unspecified; R19.7 Diarrhea, unspecified
CPT/HCPCS: 99283; 51702; 96374; 96375; 36415; 87086; 85025; 87088; 80053; 81001; 87186; C1758; J2270; J2550

== ENCOUNTER 2019-06-18 02:06 | Emergency (ER) | payer MEDICARE ==
[2019-06-18] MEDS ORDERED: DICYCLOMINE HCL 20 MG TABLET PO ONE (03:12)
[2019-06-18] MEDS ORDERED: PROMETHAZINE HCL 25 MG TABLET PO ONE (03:12)
--- NOTE | 2019-06-18 03:15 | ER Document Report ---
ED GI/ - General Chief Complaint: Urinary Frequency Stated Complaint: URINARY COMPLAINTS Time Seen by Provider: 06/18/19 03:02 Primary Care Provider: DANIAL LABOY MD [Primary Care Provider] - Follow up in 3-5 days Notes: Patient is a 48-year-old male that comes emergency department for chief complaint of concerned about a urinary tract infection. He states he received a letter from this hospital this that he had Klebsiella in his urine, he states that he threw up earlier today and he felt chills. He does not have any specific pain at this time other than some generalized abdominal pain. He has an indwelling catheter (suprapubic) with chronic colonizations/infections. He is pending urology and infectious disease referrals from Dr. Laboy. TRAVEL OUTSIDE OF THE [place] IN LAST 30 DAYS: No - Related Data Allergies/Adverse Reactions: No Known Allergies Allergy (Verified 06/18/19 02:10) Past Medical History - General Information source: Patient - Social History Smoking Status: Current Some Day Smoker Lives with: Alone Family History: None, Reviewed & Not Pertinent, Hypertension Renal/ Medical History: Reports: Hx Kidney Stones. Denies: Hx Peritoneal Dialysis Psychiatric Medical History: Reports: Hx Bipolar Disorder, Hx Borderline Personality Disorder, Hx Depression, Hx Schizophrenia Past Surgical History: Reports: Hx Cholecystectomy, Hx Genitourinary Surgery - Suprapubic catheter - Immunizations Immunizations up to date: Yes Hx Diphtheria, Pertussis, Tetanus Vaccination: Yes Review of Systems - Review of Systems Constitutional: See HPI EENT: No symptoms reported Cardiovascular: No symptoms reported Respiratory: No symptoms reported Gastrointestinal: See HPI Genitourinary: See HPI Male Genitourinary: No symptoms reported Musculoskeletal: No symptoms reported Skin: No symptoms reported Hematologic/Lymphatic: No symptoms reported Neurological/Psychological: No symptoms reported Physical Exam - Vital signs Vitals: Temp Pulse Resp BP Pulse Ox 97.4 F 74 20 128/86 H 100 06/18/19 02:58 06/18/19 02:58 06/18/19 02:58 06/18/19 02:58 06/18/19 02:58 - Notes Notes: GENERAL: Alert, interacts well. No acute distress. HEAD: Normocephalic, atraumatic. EYES: Pupils equal, round, and reactive to light. Extraocular movements intact. ENT: Oral mucosa moist, tongue midline. LUNGS: Clear to auscultation bilaterally, no wheezes, rales, or rhonchi. No respiratory distress. HEART: Regular rate and rhythm. No murmur ABDOMEN: Soft, non-tender. Non-distended. Suprapubic catheter in place. EXTREMITIES: Moves all 4 extremities spontaneously. No edema, normal radial and dorsalis pedis pulses bilaterally. No cyanosis. BACK: no cervical, thoracic, lumbar midline tenderness. No saddle anesthesia, normal distal neurovascular exam. Moves all extremities in full range of motion. NEUROLOGICAL: Alert and oriented x3. Normal speech. Cranial nerves II through XII grossly intact. PSYCH: Normal affect, normal mood. SKIN: Warm, dry, normal turgor. No rashes or lesions noted. Course - Re-evaluation Re-evalutation: Patient calm and well-appearing with no distress. Examination unremarkable. Vital signs unremarkable including no tachycardia or fever. Patient given Phenergan, tolerated crackers and drink without any difficulty. Patient's Vo was replaced, no urine was obtained, this does show bloody, white blood cells, some bacteria. Patient's previous cultures do show that he had Klebsiella, Proteus, enterococcus. These were with varying resistances, all are susceptible to Levaquin. New culture was placed. CBC, chemistry nonspecific. Patient remains very well-appearing on reevaluation. I do not suspect sepsis based on his evaluation, I discussed plan, patient was placed on Levaquin, follow-up with his primary care and his referrals to urology and infectious disease, return if he worsens. This was discussed in detail. Patient states understanding and agreement with plan. - Vital Signs Vital signs: Temp Pulse Resp BP Pulse Ox 97.4 F 74 18 119/86 H 98 06/18/19 02:58 06/18/19 05:08 06/18/19 05:08 06/18/19 05:08 06/18/19 05:08 - Laboratory Result Diagrams: 06/18/19 03:15 06/18/19 03:15 Laboratory results interpreted by me: 06/18/19 06/18/19 03:15 04:00 Hgb 11.7 L Hct 36.2 L MCV 75 L MCH 24.2 L RDW 19.8 H Urine Protein 100 H Urine Blood LARGE H Urine Urobilinogen 2.0 H Ur Leukocyte Esterase LARGE H Discharge - Discharge Clinical Impression: Chronic UTI (urinary tract infection), Chills Nausea and vomiting Qualifiers: Vomiting type: unspecified Vomiting Intractability: unspecified Qualified Code(s): R11.2 - Nausea with vomiting, unspecified Condition: Stable Disposition: HOME, SELF-CARE Additional Instructions: The culture shows that the Klebsiella and the other bacteria are susceptible to Levaquin. As result you have been prescribed Levaquin (you received your first dose today, your next dose is tomorrow June 19). Take to completion. We have a new culture growing in our lab. Follow-up with Dr. Laboy and with your referrals to urology and infectious disease. Return if you worsen including fever, return vomiting, worsening pain, or any other concerning or worsening symptoms. Prescriptions: Levofloxacin [Levaquin 750 mg Tablet] 750 mg PO DAILY #4 tablet Promethazine HCl [Phenergan 25 mg Tablet] 25 mg PO Q6H PRN #15 tablet PRN Reason: Referrals: DANIAL LABOY MD [Primary Care Provider] - Follow up in 3-5 days
[2019-06-18 03:27] LABS: ABSOLUTE BASOPHILS # (AUTO) 0.1 10^3/uL (0.0-0.2); ABSOLUTE EOSINOPHILS # (AUTO) 0.3 10^3/uL (0.0-0.6); ABSOLUTE LYMPHOCYTES (AUTO) 1.4 10^3/uL (0.5-4.7); ABSOLUTE MONOCYTES (AUTO) 0.6 10^3/uL (0.1-1.4); ABSOLUTE NEUT (AUTO) 3.2 10^3/uL (1.7-8.2); EOSINOPHILS % (AUTO) 5.1 % (0-6); HEMATOCRIT 36.2 % (37.9-51.0); HEMOGLOBIN 11.7 g/dL (13.5-17.0); LYMPHOCYTES % (AUTO) 24.9 % (13-45); MEAN CORPUSCULAR HEMOGLOBIN 24.2 pg (27.0-33.4); MEAN CORPUSCULAR HGB CONC 32.3 g/dL (32.0-36.0); MEAN CORPUSCULAR VOLUME 75 fl (80-97); MONOCYTES % (AUTO) 10.7 % (3-13); PLATELET COUNT 266 10^3/uL (150-450); RED BLOOD COUNT 4.82 10^6/uL (4.35-5.55); RED CELL DISTRIBUTION WIDTH 19.8 % (11.5-14.0); SEGMENTED NEUTROPHILS % (AUTO) 57.3 % (42-78); TOTAL CELLS COUNTED % (AUTO) 100 %; WHITE BLOOD COUNT 5.6 10^3/uL (4.0-10.5)
[2019-06-18 03:39] LABS: ANION GAP 7 (5-19); BLOOD UREA NITROGEN 8 mg/dL (7-20); CARBON DIOXIDE 27 mmol/L (22-30); CHLORIDE 104 mmol/L (98-107); GLUCOSE 97 mg/dL (75-110); POTASSIUM 3.6 mmol/L (3.6-5.0)
[2019-06-18 04:26] LABS: AMORPHOUS SEDIMENT,URINE TRACE /HPF; APPEARANCE,URINE CLOUDY; BILIRUBIN,URINE NEGATIVE (NEGATIVE); COLOR,URINE RED; GLUCOSE, URINE NEGATIVE (NEGATIVE); KETONES,URINE NEGATIVE (NEGATIVE); LEUKOCYTE ESTERASE,URINE LARGE (NEGATIVE); NITRITE,URINE NEGATIVE (NEGATIVE); PROTEIN,URINE 100 mg/dL (NEGATIVE); URINE SPECIFIC GRAVITY 1.013
[2019-06-18] MEDS ORDERED: LEVOFLOXACIN 750 MG TABLET PO ONE (04:43)
[2019-06-18 05:09] VITALS: BP 119/86
== END 2019-06-18 05:09 | disposition home or self-care (01) ==
LOC: ER 02:06
DX: N39.0 Urinary tract infection, site not specified (principal); R11.2 Nausea with vomiting, unspecified; R68.83 Chills (without fever); F17.200 Nicotine dependence, unspecified, uncomplicated; Z90.49 Acquired absence of other specified parts of digestive tract
CPT/HCPCS: 36415; 87086; 85025; 87088; 80048; 81001; C1758; A9270 ×3; 51702; 99284; J3490

== ENCOUNTER 2019-06-20 20:09 | Emergency (ER) | payer MEDICARE ==
[2019-06-20] MEDS ORDERED: ASPIRIN 81 MG TABLET, CHEWABLE PO ONE (21:17)
[2019-06-20] MEDS ORDERED: HYDROCODONE/ACETAMINOPHEN 5-325 MG TABLET PO ONE (21:18)
[2019-06-20] MEDS ORDERED: ONDANSETRON HCL INJ/PF 4 MG/2 ML SDV IV ONE (21:18)
[2019-06-20] MEDS ORDERED: NORMAL SALINE 1000 ML 1,000 ML IV ONE (21:20)
--- NOTE | 2019-06-20 21:20 | ER Document Report ---
ED Medical Screen (RME) - General Chief Complaint: Urinary Problem Stated Complaint: CHEST PAIN,FAINTED Time Seen by Provider: 06/20/19 21:16 Primary Care Provider: DANIAL LABOY MD [Primary Care Provider] - Follow up as needed Mode of Arrival: Wheelchair Information source: Patient Notes: Patient presents complaining of UTI that is drug-resistant. Patient states his primary doctor advised him that he would need to be admitted for IV antibiotics. Patient reports nausea vomiting diarrhea today. Patient also reports having syncopal episode x2 while here in the lobby. Patient states that while here he also developed chest pain that radiated into the left arm. Patient reports right flank pain today. Patient states he had a fever of 101 at home today. Patient is currently taking Levaquin and has had 2 doses of this medication. I have greeted and performed a rapid initial assessment of this patient. A comprehensive ED assessment and evaluation of the patient, analysis of test results and completion of the medical decision making process will be conducted by additional ED providers. TRAVEL OUTSIDE OF THE [place] IN LAST 30 DAYS: No - Related Data Allergies/Adverse Reactions: No Known Allergies Allergy (Verified 06/18/19 02:10) Past Medical History - Social History Family history: Reviewed & Not Pertinent Renal/ Medical History: Reports: Hx Kidney Stones. Denies: Hx Peritoneal Shayna lysis Psychiatric Medical History: Reports: Hx Bipolar Disorder, Hx Borderline Personality Disorder, Hx Depression, Hx Schizophrenia Past Surgical History: Reports: Hx Cholecystectomy, Hx Genitourinary Surgery - Suprapubic catheter - Immunizations Immunizations up to date: Yes Hx Diphtheria, Pertussis, Tetanus Vaccination: Yes History of Influenza Vaccine for 08/2017 - 01/2018 Season: Unknown Physical Exam - Vital signs Vitals: Temp Pulse Resp BP Pulse Ox 98.0 F 104 H 18 109/62 98 06/20/19 20:25 06/20/19 20:25 06/20/19 20:25 06/20/19 20:25 06/20/19 20:25 - Cardiovascular Rhythm: Tachycardia Heart sounds: S1 appreciated, S2 appreciated - Back Back: CVA tenderness - Right Course - Vital Signs Vital signs: Temp Pulse Resp BP Pulse Ox 98.0 F 104 H 18 109/62 98 06/20/19 20:25 06/20/19 20:25 06/20/19 20:25 06/20/19 20:25 06/20/19 20:25 Doctor's Discharge - Discharge Referrals: DANIAL LABOY MD [Primary Care Provider] - Follow up as needed
--- NOTE | 2019-06-20 22:10 | RADIOLOGY REPORT (SQ) ---
EXAM DESCRIPTION: XR CHEST 2 VIEWS COMPLETED DATE/TME: 06/20/2019 21:17 CLINICAL HISTORY: 48 years, Male, cp COMPARISON: 04/17/2019 chest NUMBER OF VIEWS: 2 TECHNIQUE: 2 view chest LIMITATIONS: None. FINDINGS: Heart size normal. Lungs hyperinflated but clear. No pneumothorax. Post surgical change cervical spine IMPRESSION: No acute cardiopulmonary process copyright 2010 [employer]- All Rights Reserved
[2019-06-20] MEDS ORDERED: ONDANSETRON 4 MG TAB.RAPDIS PO ONE (22:13)
[2019-06-20 22:27] LABS: ABSOLUTE BASOPHILS # (AUTO) 0.1 10^3/uL (0.0-0.2); ABSOLUTE EOSINOPHILS # (AUTO) 0.3 10^3/uL (0.0-0.6); ABSOLUTE LYMPHOCYTES (AUTO) 1.8 10^3/uL (0.5-4.7); ABSOLUTE MONOCYTES (AUTO) 0.6 10^3/uL (0.1-1.4); ABSOLUTE NEUT (AUTO) 5.7 10^3/uL (1.7-8.2); BASOPHILS % (AUTO) 1.4 % (0-2); EOSINOPHILS % (AUTO) 3.3 % (0-6); HEMATOCRIT 37.8 % (37.9-51.0); HEMOGLOBIN 12.1 g/dL (13.5-17.0); LYMPHOCYTES % (AUTO) 21.1 % (13-45); MEAN CORPUSCULAR HEMOGLOBIN 24.2 pg (27.0-33.4); MEAN CORPUSCULAR VOLUME 76 fl (80-97); MONOCYTES % (AUTO) 6.8 % (3-13); PLATELET COUNT 310 10^3/uL (150-450); RED BLOOD COUNT 4.99 10^6/uL (4.35-5.55); RED CELL DISTRIBUTION WIDTH 19.9 % (11.5-14.0); SEGMENTED NEUTROPHILS % (AUTO) 67.4 % (42-78); TOTAL CELLS COUNTED % (AUTO) 100 %; WHITE BLOOD COUNT 8.4 10^3/uL (4.0-10.5)
[2019-06-20 22:45] LABS: ALBUMIN 3.6 g/dL (3.5-5.0); ALKALINE PHOSPHATASE 65 U/L (38-126); ANION GAP 10 (5-19); ASPARTATE AMINO TRANSFERASE 21 U/L (17-59); BILIRUBIN,DIRECT 0.2 mg/dL (0.0-0.4); BILIRUBIN,TOTAL 0.2 mg/dL (0.2-1.3); BLOOD UREA NITROGEN 13 mg/dL (7-20); CALCIUM 9.5 mg/dL (8.4-10.2); CARBON DIOXIDE 22 mmol/L (22-30); CHLORIDE 102 mmol/L (98-107); GLUCOSE 127 mg/dL (75-110); POTASSIUM 4.3 mmol/L (3.6-5.0)
[2019-06-21] MEDS ORDERED: LEVOFLOXACIN 500 MG/D5W RTU 500 MG/100 ML RTUPB IV ONE (01:56)
[2019-06-21] MEDS ORDERED: MORPHINE SULFATE 10 MG/ML INJ IV ONE (01:57)
[2019-06-21] MEDS ORDERED: PROCHLORPERAZINE EDISYLATE INJ 10 MG/2 ML VIAL IV ONE (01:58)
--- NOTE | 2019-06-21 02:01 | ER Document Report ---
ED General - General Chief Complaint: Urinary Problem Stated Complaint: CHEST PAIN,FAINTED Time Seen by Provider: 06/20/19 21:16 Primary Care Provider: DANIAL LABOY MD [Primary Care Provider] - Follow up as needed Mode of Arrival: Wheelchair Notes: 48-year-old male to the emergency department chief complaint of low blood pressure, tachycardia, persistent vomiting and fever at home. Patient was seen yesterday. Has a suprapubic catheter. Started on Levaquin based on previous culture results. Patient states that he has felt worse today and has not been able to keep his medication down. States he vomited up the Levaquin earlier. Complaining of pain in the bladder area as well. Requesting something for the pain. Of note, his blood pressure was low on arrival and his heart rate was over 100. TRAVEL OUTSIDE OF THE [place] IN LAST 30 DAYS: No - HPI Onset: Yesterday Onset/Duration: Gradual, Constant Quality of pain: Achy Severity: Moderate Pain Level: 3 - Related Data Allergies/Adverse Reactions: No Known Allergies Allergy (Verified 06/18/19 02:10) Past Medical History - General Information source: Patient - Social History Smoking Status: Unknown if Ever Smoked Frequency of alcohol use: None Drug Abuse: None Lives with: Alone Family History: None, Reviewed & Not Pertinent, Hypertension Renal/ Medical History: Reports: Hx Kidney Stones. Denies: Hx Peritoneal Dialysis Musculoskeletal Medical History: Reports Other - History of transverse myelitis Psychiatric Medical History: Reports: Hx Bipolar Disorder, Hx Borderline Personality Disorder, Hx Depression, Hx Schizophrenia Past Surgical History: Reports: Hx Cholecystectomy, Hx Genitourinary Surgery - S uprapubic catheter - Immunizations Immunizations up to date: Yes Hx Diphtheria, Pertussis, Tetanus Vaccination: Yes Review of Systems - Review of Systems Notes: Constitutional: denies: Chills, Diaphoresis, +Fever, +Malaise, +Weakness EENT: denies: Eye discharge, Blurred vision, Tearing, Double vision, Nose congestion, Nose discharge, Throat swelling, Mouth pain Cardiovascular: denies: Palpitations, Heart racing, Orthopnea, Dyspnea, Chest pain Respiratory: denies: Cough, Hurts to breathe, Wheezing, Shortness of breath Gastrointestinal: denies: Abdominal pain, Diarrhea, Nausea, Vomiting, Black stools, bright red blood in stool Genitourinary: denies: Burning,+ Dysuria, -Discharge, Frequency,- Flank pain,- Hematuria Musculoskeletal: denies: Joint pain, Joint swelling, Muscle pain, Muscle stiffness, back pain Hematologic/Lymphatic: denies: Anemia, Easy bleeding, Easy bruising, Blood clots Neurological/Psychological: denies: Confusion, Dementia, Depression, Loss of consciousness Skin: No lesions, no masses, no skin breakdown, no abscesses Physical Exam - Vital signs Vitals: Temp Pulse Resp BP Pulse Ox 98.0 F 104 H 18 109/62 98 06/20/19 20:25 06/20/19 20:25 06/20/19 20:25 06/20/19 20:25 06/20/19 20:25 Interpretation: Normal - General General appearance: Appears well, Alert - HEENT Head: Normocephalic, Atraumatic Eyes: Normal Pupils: PERRL - Respiratory Respiratory status: No respiratory distress Chest status: Nontender Breath sounds: Normal Chest palpation: Normal - Cardiovascular Rhythm: Regular Heart sounds: Normal auscultation Murmur: No - Abdominal Inspection: Normal Distension: No distension Bowel sounds: Normal Tenderness: Nontender Organomegaly: No organomegaly - Back Back: Normal, Nontender - Extremities General upper extremity: Normal inspection, Nontender, Normal color, Normal ROM, Normal temperature General lower extremity: Normal inspection, Nontender, Normal color, Normal ROM, Normal temperature, Normal weight bearing. No: Martin's sign - Neurological Neuro grossly intact: Yes Cognition: Normal Orientation: AAOx4 Holly Coma Scale Eye Opening: Spontaneous Holly Coma Scale Verbal: Oriented Holly Coma Scale Motor: Obeys Commands [place] Coma Scale Total: 15 Speech: Normal Motor strength normal: LUE, RUE, LLE, RLE Sensory: Normal - Psychological Associated symptoms: Normal affect, Normal mood - Skin Skin Temperature: Warm Skin Moisture: Dry Skin Color: Normal Course - Re-evaluation Re-evalutation: 06/21/19 02:00 Laboratory 06/20/19 06/20/19 06/20/19 22:08 22:08 22:08 WBC 8.4 RBC 4.99 Hgb 12.1 L Hct 37.8 L MCV 76 L MCH 24.2 L MCHC 32.0 RDW 19.9 H Plt Count 310 Seg Neutrophils % 67.4 Lymphocytes % 21.1 Monocytes % 6.8 Eosinophils % 3.3 Basophils % 1.4 Absolute Neutrophils 5.7 Absolute Lymphocytes 1.8 Absolute Monocytes 0.6 Absolute Eosinophils 0.3 Absolute Basophils 0.1 Sodium 134.2 L Potassium 4.3 Chloride 102 Carbon Dioxide 22 Anion Gap 10 BUN 13 Creatinine 0.82 Est GFR ( Amer) > 60 Est GFR (Non-Af Amer) > 60 Glucose 127 H Lactic Acid Calcium 9.5 Total Bilirubin 0.2 Direct Bilirubin 0.2 Neonat Total Bilirubin Not Reportable Neonat Direct Bilirubin Not Reportable Neonat Indirect Bili Not Reportable AST 21 ALT 16 Alkaline Phosphatase 65 Troponin I < 0.012 Total Protein 6.0 L Albumin 3.6 06/20/19 22:08 WBC RBC Hgb Hct MCV MCH MCHC RDW Plt Count Seg Neutrophils % Lymphocytes % Monocytes % Eosinophils % Basophils % Absolute Neutrophils Absolute Lymphocytes Absolute Monocytes Absolute Eosinophils Absolute Basophils Sodium Potassium Chloride Carbon Dioxide Anion Gap BUN Creatinine Est GFR ( Amer) Est GFR (Non-Af Amer) Glucose Lactic Acid 2.0 Calcium Total Bilirubin Direct Bilirubin Neonat Total Bilirubin Neonat Direct Bilirubin Neonat Indirect Bili AST ALT Alkaline Phosphatase Troponin I Total Protein Albumin 06/21/19 02:00 Patient blood pressure is back to normal. Heart rate within normal limits. Will give an initial dose of IV Levaquin and some Compazine and pain medication. I think patient is stable for discharge at this time. I am recommending that he continue with his Levaquin based on his previous culture results. Patient has outpatient primary care doctor. I feel comfortable discharging. Does not appear septic in any way. P temperature is 98. Lactate of 2. Blood pressure is 120/80. Heart rate of 80. - Vital Signs Vital signs: Temp Pulse Resp BP Pulse Ox 98.0 F 104 H 18 109/62 98 06/20/19 20:25 06/20/19 20:25 06/20/19 20:25 06/20/19 20:25 06/20/19 20:25 - Laboratory Result Diagrams: 06/20/19 22:08 06/20/19 22:08 Laboratory results interpreted by me: 06/20/19 06/20/19 22:08 22:08 Hgb 12.1 L Hct 37.8 L MCV 76 L MCH 24.2 L RDW 19.9 H Sodium 134.2 L Glucose 127 H Total Protein 6.0 L - EKG Interpretation by Me EKG shows normal: Sinus rhythm, [place], QRS Complexes, ST-T Waves [place]/QRS: RBBB When compared to previous EKG there are: No significant change Discharge - Discharge Clinical Impression: Urinary tract infection Qualifiers: Urinary tract infection type: catheter-associated UTI Indwelling urinary catheter type: cystostomy catheter Encounter type: sequela Qualified Code(s): T83.510S - Infection and inflammatory reaction due to cystostomy catheter, sequela; N39.0 - Urinary tract infection, site not specified Condition: Good Disposition: HOME, SELF-CARE Instructions: Urinary Tract Infection ([facility]) Additional Instructions: Continue with your Levaquin. In the event your symptoms get worse please return. Follow-up with your regular doctor. Referrals: DANIAL LABOY MD [Primary Care Provider] - Follow up as needed
[2019-06-21 03:39] VITALS: BP 125/77
--- NOTE | 2019-06-21 09:21 | EKG REPORT ---
SEVERITY:- ABNORMAL ECG - SINUS RHYTHM INCOMPLETE RBBB AND LAFB BORDERLINE PROLONGED QT INTERVAL : Confirmed by: Marco Lux MD 21-Jun-2019 09:20:15
== END 2019-06-21 03:39 | disposition home or self-care (01) ==
LOC: ER 20:09
DX: T83.510A Infection and inflammatory reaction due to cystostomy catheter, initial encounter (principal); N39.0 Urinary tract infection, site not specified; Y84.6 Urinary catheterization as the cause of abnormal reaction of the patient, or of later complication, without mention of misadventure at the time of the procedure; R11.10 Vomiting, unspecified; R50.9 Fever, unspecified; I95.9 Hypotension, unspecified; I45.10 Unspecified right bundle-branch block
CPT/HCPCS: 93005; 36415; 87040; 87086; 83605; 85025; 87088; 80053; 84484; 71046; 93010; A9270 ×2; J1956; J2270; J0780; J7030; 87186; 96365; 96375; 99284

== ENCOUNTER 2019-07-03 20:10 | Emergency (ER) | payer MEDICARE ==
[2019-07-03] MEDS ORDERED: ONDANSETRON HCL INJ/PF 4 MG/2 ML SDV IV ONE (22:11)
--- NOTE | 2019-07-03 22:13 | ER Document Report ---
ED Medical Screen (RME) - General Chief Complaint: Abdominal Pain Stated Complaint: URINARY PROBLEM Time Seen by Provider: 07/03/19 22:10 Primary Care Provider: DANIAL LABOY MD [Primary Care Provider] - Follow up as needed Notes: Patient is a 48-year-old male presents to the emergency department for vomiting and diarrhea. Patient states he also feels as though he had a subjective fever. Patient does have a suprapubic catheter and notes that the urine in his bag is "really cloudy." GENERAL: Alert, interacts well. No acute distress. ABDOMEN: Soft, non-tender. Non-distended. Bowel sounds present in all 4 quad rants. I have greeted and performed a rapid initial assessment of this patient. A comprehensive ED assessment and evaluation of the patient, analysis of test results and completion of the medical decision making process will be conducted by additional ED providers. I have specifically instructed the patient or family members with the patient to immediately return to any nursing staff should anything change in the patient's condition or with their chief complaint. This medical record was dictated with voice recognizing software. There may be grammatical, syntax errors that are unintended. TRAVEL OUTSIDE OF THE [place] IN LAST 30 DAYS: No - Related Data Allergies/Adverse Reactions: No Known Allergies Allergy (Verified 06/18/19 02:10) Past Medical History - Social History Family history: Reviewed & Not Pertinent Renal/ Medical History: Reports: Hx Kidney Stones. Denies: Hx Peritoneal Dialysis Psychiatric Medical History: Reports: Hx Bipolar Disorder, Hx Borderline Personality Disorder, Hx Depression, Hx Schizophrenia Past Surgical History: Reports: Hx Cholecystectomy, Hx Genitourinary Surgery - Suprapubic catheter - Immunizations Immunizations up to date: Yes Hx Diphtheria, Pertussis, Tetanus Vaccination: Yes History of Influenza Vaccine for 08/2017 - 01/2018 Season: Unknown Physical Exam - Vital signs Vitals: Temp Pulse Resp BP Pulse Ox 97.6 F 86 17 114/63 98 07/03/19 20:43 07/03/19 20:43 07/03/19 20:43 07/03/19 20:43 07/03/19 20:43 Course - Vital Signs Vital signs: Temp Pulse Resp BP Pulse Ox 97.6 F 86 17 114/63 98 07/03/19 20:43 07/03/19 20:43 07/03/19 20:43 07/03/19 20:43 07/03/19 20:43 Doctor's Discharge - Discharge Referrals: DANIAL LABOY MD [Primary Care Provider] - Follow up as needed
[2019-07-03 23:47] LABS: ABSOLUTE BASOPHILS # (AUTO) 0.1 10^3/uL (0.0-0.2); ABSOLUTE EOSINOPHILS # (AUTO) 0.3 10^3/uL (0.0-0.6); ABSOLUTE LYMPHOCYTES (AUTO) 1.4 10^3/uL (0.5-4.7); ABSOLUTE MONOCYTES (AUTO) 0.7 10^3/uL (0.1-1.4); ABSOLUTE NEUT (AUTO) 6.4 10^3/uL (1.7-8.2); BASOPHILS % (AUTO) 1.3 % (0-2); EOSINOPHILS % (AUTO) 3.7 % (0-6); HEMATOCRIT 38.2 % (37.9-51.0); HEMOGLOBIN 12.3 g/dL (13.5-17.0); LYMPHOCYTES % (AUTO) 15.6 % (13-45); MEAN CORPUSCULAR HEMOGLOBIN 24.3 pg (27.0-33.4); MEAN CORPUSCULAR HGB CONC 32.2 g/dL (32.0-36.0); MEAN CORPUSCULAR VOLUME 76 fl (80-97); MONOCYTES % (AUTO) 7.4 % (3-13); PLATELET COUNT 277 10^3/uL (150-450); RED BLOOD COUNT 5.05 10^6/uL (4.35-5.55); RED CELL DISTRIBUTION WIDTH 20.2 % (11.5-14.0); TOTAL CELLS COUNTED % (AUTO) 100 %
[2019-07-03 23:53] LABS: APPEARANCE,URINE SLIGHTLY-CLOUDY; BILIRUBIN,URINE NEGATIVE (NEGATIVE); CALCIUM OXALATE CRYSTALS,URINE FEW /HPF; COLOR,URINE YELLOW; GLUCOSE, URINE NEGATIVE (NEGATIVE); KETONES,URINE TRACE mg/dL (NEGATIVE); LEUKOCYTE ESTERASE,URINE SMALL (NEGATIVE); NITRITE,URINE NEGATIVE (NEGATIVE); PROTEIN,URINE 30 mg/dL (NEGATIVE); URINE SPECIFIC GRAVITY 1.028
[2019-07-04 00:06] LABS: ALKALINE PHOSPHATASE 68 U/L (38-126); ANION GAP 9 (5-19); ASPARTATE AMINO TRANSFERASE 28 U/L (17-59); BILIRUBIN,DIRECT 0.2 mg/dL (0.0-0.4); BILIRUBIN,TOTAL 0.4 mg/dL (0.2-1.3); BLOOD UREA NITROGEN 18 mg/dL (7-20); CALCIUM 9.7 mg/dL (8.4-10.2); CARBON DIOXIDE 27 mmol/L (22-30); CHLORIDE 101 mmol/L (98-107); GLUCOSE 87 mg/dL (75-110); POTASSIUM 4.3 mmol/L (3.6-5.0); TOTAL PROTEIN 6.4 g/dL (6.3-8.2)
--- NOTE | 2019-07-04 01:38 | ER Document Report ---
ED GI/ - General Chief Complaint: Abdominal Pain Stated Complaint: URINARY PROBLEM Time Seen by Provider: 07/03/19 22:10 Primary Care Provider: DANIAL LABOY MD [Primary Care Provider] - Follow up as needed Notes: Patient is a 48-year-old male that comes to the emergency department for chief complaint of concerns about his Vo and possible urinary tract infection. He states that he felt nauseated and vomited twice earlier but he has not since. He denies abdominal pain. He denies fever. He states his bag for his suprapubic Vo keeps filling up too fast and he wants a larger bag. He states it also looks cloudy and he is worried it is infected. He denies any other complaints. TRAVEL OUTSIDE OF THE [place] IN LAST 30 DAYS: No - Related Data Allergies/Adverse Reactions: No Known Allergies Allergy (Verified 06/18/19 02:10) Past Medical History - General Information source: Patient - Social History Smoking Status: Unknown if Ever Smoked Frequency of alcohol use: Occasional Lives with: Alone Family History: None, Reviewed & Not Pertinent, Hypertension Renal/ Medical History: Reports: Hx Kidney Stones. Denies: Hx Peritoneal Dialysis Psychiatric Medical History: Reports: Hx Bipolar Disorder, Hx Borderline Personality Disorder, Hx Depression, Hx Schizophrenia Past Surgical History: Reports: Hx Cholecystectomy, Hx Genitourinary Surgery - Suprapubic catheter - Immunizations Immunizations up to date: Yes Hx Diphtheria, Pertussis, Tetanus Vaccination: Yes Review of Systems - Review of Systems Constitutional: No symptoms reported EENT: No symptoms reported Cardiovascular: No symptoms reported Respiratory: No symptoms reported Gastrointestinal: See HPI Genitourinary: See HPI Male Genitourinary: No symptoms reported Musculoskeletal: No symptoms reported Skin: No symptoms reported Hematologic/Lymphatic: No symptoms reported Neurological/Psychological: No symptoms reported Physical Exam - Vital signs Vitals: Temp Pulse Resp BP Pulse Ox 97.6 F 86 17 114/63 98 07/03/19 20:43 07/03/19 20:43 07/03/19 20:43 07/03/19 20:43 07/03/19 20:43 - Notes Notes: GENERAL: Alert, interacts well. No acute distress. HEAD: Normocephalic, atraumatic. EYES: Pupils equal, round, and reactive to light. Extraocular movements intact. ENT: Oral mucosa moist, tongue midline. Oropharynx unremarkable. Airway patent. LUNGS: Clear to auscultation bilaterally, no wheezes, rales, or rhonchi. No respiratory distress. HEART: Regular rate and rhythm. No murmur ABDOMEN: Soft, non-tender. Non-distended. Bowel sounds present in all 4 quadrants. Suprapubic catheter in place without tenderness or abnormal erythema around the area. GENITOURINARY: Deferred EXTREMITIES: Moves all 4 extremities spontaneously. No edema, normal radial and dorsalis pedis pulses bilaterally. No cyanosis. BACK: no cervical, thoracic, lumbar midline tenderness. No saddle anesthesia, normal distal neurovascular exam. NEUROLOGICAL: Alert and oriented x3. Normal speech. Cranial nerves II through XI I grossly intact. PSYCH: Normal affect, normal mood. SKIN: Warm, dry, normal turgor. No rashes or lesions noted. Course - Re-evaluation Re-evalutation: On my evaluation patient asked looks very well, his vital signs are unremarkable , he denies any current complaints. He received Zofran from triage. He is requesting a new bag for his Vo, his abdomen is soft and benign. He does have some white blood cells in the urine but less than 50, no nitrites, no bacteria, culture was placed. Patient was recently treated for UTI. I discussed results including nonspecific unremarkable CBC and chemistry along with the urinalysis, patient will be discharged pending culture, he states he has close follow-up with primary care and referrals in place. Stable time of discharge. - Vital Signs Vital signs: Temp Pulse Resp BP Pulse Ox 97.5 F 75 18 123/70 100 07/04/19 01:53 07/04/19 01:53 07/04/19 01:53 07/04/19 01:53 07/04/19 01:53 - Laboratory Result Diagrams: 07/03/19 23:19 07/03/19 23:19 Laboratory results interpreted by me: 07/03/19 07/03/19 23:19 23:19 Hgb 12.3 L MCV 76 L MCH 24.3 L RDW 20.2 H Urine Protein 30 H Urine Ketones TRACE H Urine Urobilinogen 4.0 H Ur Leukocyte Esterase SMALL H Discharge - Discharge Clinical Impression: Nausea and vomiting Qualifiers: Vomiting type: unspecified Vomiting Intractability: non-intractable Qualified Code(s): R11.2 - Nausea with vomiting, unspecified Suprapubic catheter dysfunction Qualifiers: Encounter type: initial encounter Qualified Code(s): T83.010A - Breakdown (mechanical) of cystostomy catheter, initial encounter Condition: Stable Disposition: HOME, SELF-CARE Additional Instructions: Your laboratory work-up is reassuring. We have a new culture for the urine growing in our lab. Follow-up with your urology and infectious disease referrals. Follow-up with primary care. Return if you worsen including fever, developing abdominal pain, returned vomiting, or any other concerning or worsening symptoms. Referrals: DAINAL LABOY MD [Primary Care Provider] - Follow up as needed
[2019-07-04 01:54] VITALS: BP 123/70
== END 2019-07-04 02:05 | disposition home or self-care (01) ==
LOC: ER 20:10
DX: R11.2 Nausea with vomiting, unspecified (principal); T83.010A Breakdown (mechanical) of cystostomy catheter, initial encounter; X58.XXXA Exposure to other specified factors, initial encounter; Z87.442 Personal history of urinary calculi; Z90.49 Acquired absence of other specified parts of digestive tract
CPT/HCPCS: 36415; 83690; 85025; 80053; 81001; J2405; 87086

== ENCOUNTER 2019-07-13 14:46 | Emergency (ER) | payer MEDICARE ==
[2019-07-13] MEDS ORDERED: PHENAZOPYRIDINE HCL 100 MG TABLET PO ONE (16:24)
[2019-07-13] MEDS ORDERED: ONDANSETRON 4 MG TAB.RAPDIS PO ONE (16:24)
[2019-07-13] MEDS ORDERED: KETOROLAC TROMETHAMINE INJ/PF 30 MG/1 ML SDV IM ONE (16:24)
--- NOTE | 2019-07-13 16:28 | ER Document Report ---
ED Medical Screen (RME) - General Chief Complaint: Urinary Problem Stated Complaint: CATH PROBLEMS Time Seen by Provider: 07/13/19 16:13 Primary Care Provider: DANIAL LABOY MD [Primary Care Provider] - Follow up as needed Notes: Patient is a 48-year-old male who presents to the emergency department with a chief complaint of urinary symptoms. Patient states he was recently treated for UTI and was placed on 2 antibiotics with the addition of Macrobid that he started 3 days ago. Patient is unsure of the other antibiotic he is on. Patient reports pain in his bladder that feels like spasms and right flank pain. Patient reports nausea this morning, with one episode of vomiting and 2 episodes of diarrhea. Patient denies fever but does report cold sweats. Patient reports that he woke up in the middle the night and his suprapubic catheter was leaking at the area where it connects to the bag. Patient states he does have a puppy he is concerned that his puppy was chewing on his catheter. Patient requesting to have his suprapubic catheter replaced. TRAVEL OUTSIDE OF THE [place] IN LAST 30 DAYS: No - Related Data Allergies/Adverse Reactions: No Known Allergies Allergy (Verified 07/13/19 14:47) Past Medical History - Social History Chew tobacco use (# tins/day): No Frequency of alcohol use: None Drug Abuse: None Family history: Reviewed & Not Pertinent Renal/ Medical History: Reports: Hx Kidney Stones. Denies: Hx Peritoneal Dialysis Psychiatric Medical History: Reports: Hx Bipolar Disorder, Hx Borderline Personality Disorder, Hx Depression, Hx Schizophrenia Past Surgical History: Reports: Hx Cholecystectomy, Hx Genitourinary Surgery - Suprapubic catheter - Immunizations Immunizations up to date: Yes Hx Diphtheria, Pertussis, Tetanus Vaccination: Yes History of Influenza Vaccine for 08/2017 - 01/2018 Season: Unknown Physical Exam - Vital signs Vitals: Temp Pulse Resp BP Pulse Ox 98.1 F 88 15 131/75 H 98 07/13/19 15:08 07/13/19 15:08 07/13/19 15:08 07/13/19 15:08 07/13/19 15:08 - Abdominal Inspection: Normal Distension: No distension Bowel sounds: Normal Tenderness: Nontender - Back Notes: No CVA tenderness. Course - Re-evaluation Re-evalutation: 07/13/19 16:27 Patient is nontoxic-appearing in triage. Will order basic labs and a urinalysis. Patient is not tachycardic, hypotensive or febrile. I have greeted and performed a rapid initial assessment of this patient. A comprehensive ED assessment and evaluation of the patient, analysis of test results and completion of the medical decision making process will be conducted by additional ED providers. 07/13/19 16:28 - Vital Signs Vital signs: Temp Pulse Resp BP Pulse Ox 98.1 F 88 15 131/75 H 98 07/13/19 15:08 07/13/19 15:08 07/13/19 15:08 07/13/19 15:08 07/13/19 15:08 Doctor's Discharge - Discharge Referrals: DANIAL LABOY MD [Primary Care Provider] - Follow up as needed
[2019-07-13 17:09] LABS: ABSOLUTE BASOPHILS # (AUTO) 0.1 10^3/uL (0.0-0.2); ABSOLUTE EOSINOPHILS # (AUTO) 0.4 10^3/uL (0.0-0.6); ABSOLUTE LYMPHOCYTES (AUTO) 1.3 10^3/uL (0.5-4.7); ABSOLUTE MONOCYTES (AUTO) 0.9 10^3/uL (0.1-1.4); ABSOLUTE NEUT (AUTO) 4.9 10^3/uL (1.7-8.2); BASOPHILS % (AUTO) 0.8 % (0-2); EOSINOPHILS % (AUTO) 5.5 % (0-6); HEMATOCRIT 38.3 % (37.9-51.0); HEMOGLOBIN 12.3 g/dL (13.5-17.0); MEAN CORPUSCULAR HEMOGLOBIN 24.7 pg (27.0-33.4); MEAN CORPUSCULAR HGB CONC 32.1 g/dL (32.0-36.0); MEAN CORPUSCULAR VOLUME 77 fl (80-97); MONOCYTES % (AUTO) 11.8 % (3-13); PLATELET COUNT 270 10^3/uL (150-450); RED BLOOD COUNT 4.99 10^6/uL (4.35-5.55); RED CELL DISTRIBUTION WIDTH 20.5 % (11.5-14.0); SEGMENTED NEUTROPHILS % (AUTO) 64.9 % (42-78); TOTAL CELLS COUNTED % (AUTO) 100 %; WHITE BLOOD COUNT 7.6 10^3/uL (4.0-10.5)
[2019-07-13 17:16] LABS: APPEARANCE,URINE CLEAR; BILIRUBIN,URINE NEGATIVE (NEGATIVE); COLOR,URINE YELLOW; GLUCOSE, URINE 50 mg/dL (NEGATIVE); KETONES,URINE NEGATIVE (NEGATIVE); LEUKOCYTE ESTERASE,URINE MODERATE (NEGATIVE); NITRITE,URINE POSITIVE (NEGATIVE); PROTEIN,URINE NEGATIVE (NEGATIVE); URINE SPECIFIC GRAVITY 1.005; UROBILINOGEN,URINE NEGATIVE mg/dL (<2.0)
[2019-07-13 17:20] LABS: ANION GAP 6 (5-19); BLOOD UREA NITROGEN 9 mg/dL (7-20); CALCIUM 9.3 mg/dL (8.4-10.2); CARBON DIOXIDE 31 mmol/L (22-30); CHLORIDE 101 mmol/L (98-107); GLUCOSE 83 mg/dL (75-110); POTASSIUM 4.4 mmol/L (3.6-5.0)
[2019-07-13] MEDS ORDERED: ONDANSETRON ODT 4 MG TAB (6 TAB/ER DISP) PO PRN (20:48)
--- NOTE | 2019-07-13 20:48 | ER Document Report ---
HPI - HPI Time Seen by Provider: 07/13/19 16:13 Pain Level: 3 Notes: Patient is a 48-year-old male who is well-known to our facility presented to the emergency department chief complaint of request to have his suprapubic catheter change. Patient reports he has a new puppy and he believes the pop he may have been chewing on the catheter as it has been leaking. Patient states he is currently being treated for urinary tract infection by his urologist. Patient denies any fevers, nausea, vomiting or diarrhea. - REPRODUCTIVE Reproductive: DENIES: : - DERM Skin Color: Normal Past Medical History - General Information source: Patient - Social History Smoking Status: Never Smoker Chew tobacco use (# tins/day): No Frequency of alcohol use: None Drug Abuse: None Family History: None, Reviewed & Not Pertinent, Hypertension Patient has suicidal ideation: No Patient has homicidal ideation: No Renal/ Medical History: Reports: Hx Kidney Stones. Denies: Hx Peritoneal Dialysis Psychiatric Medical History: Reports: Hx Bipolar Disorder, Hx Borderline Personality Disorder, Hx Depression, Hx Schizophrenia Past Surgical History: Reports: Hx Cholecystectomy, Hx Genitourinary Surgery - Suprapubic catheter - Immunizations Immunizations up to date: Yes Hx Diphtheria, Pertussis, Tetanus Vaccination: Yes Vertical Provider Document - CONSTITUTIONAL Notes: PHYSICAL EXAMINATION: GENERAL: Well-appearing, well-nourished and in no acute distress. HEAD: Atraumatic, normocephalic. EYES: Pupils equal round extraocular movements intact, conjunctiva are normal. ENT: Nares patent NECK: Normal range of motion LUNGS: No respiratory distress Musculoskeletal: Normal range of motion Genitourinary: Suprapubic catheter in place, no surrounding erythema or ecchymosis noted. NEUROLOGICAL: Normal speech, normal gait. PSYCH: Normal mood, normal affect. SKIN: Warm, Dry, normal turgor, no rashes or lesions noted. - INFECTION CONTROL TRAVEL OUTSIDE OF THE [place] IN LAST 30 DAYS: No Course - Re-evaluation Re-evalutation: Patient appears well, nontoxic and vital signs are within normal limits. Patient's urinalysis does appear to be consistent with urinary tract infection. Patient is currently taking antibiotics for this. Suprapubic catheter was changed out per patient request. Patient will be discharged home in stable condition. - Vital Signs Vital signs: Temp Pulse Resp BP Pulse Ox 98.1 F 88 15 131/75 H 98 07/13/19 15:08 07/13/19 15:08 07/13/19 15:08 07/13/19 15:08 07/13/19 15:08 - Laboratory Result Diagrams: 07/13/19 16:38 07/13/19 16:38 Laboratory results interpreted by me: 07/13/19 07/13/19 07/13/19 16:38 16:38 16:38 Hgb 12.3 L MCV 77 L MCH 24.7 L RDW 20.5 H Carbon Dioxide 31 H Urine Glucose (UA) 50 H Urine Blood MODERATE H Urine Nitrite POSITIVE H Ur Leukocyte Esterase MODERATE H Discharge - Discharge Clinical Impression: Urinary tract infection Qualifiers: Urinary tract infection type: site unspecified Hematuria presence: with hematuria Qualified Code(s): N39.0 - Urinary tract infection, site not specified Condition: Stable Disposition: HOME, SELF-CARE Additional Instructions: You are seen in the emergency department today and your suprapubic catheter was changed out. Please keep the follow-up appointment you have with your urologist for 2 weeks from now. Please continue to take all of your antibiotics as prescribed by your primary care provider. Take the Zofran as needed for nausea. Alternate Tylenol and ibuprofen for any pain. Return to the emergency depart ment with any new or worsening symptoms. Prescriptions: Ondansetron [Zofran Odt 4 mg Tablet] 1 - 2 tab PO Q4H PRN #15 tab.rapdis PRN Reason: For Nausea/Vomiting Referrals: DANIAL LABOY MD [Primary Care Provider] - Follow up as needed
[2019-07-13 21:33] VITALS: BP 108/68
== END 2019-07-13 21:34 | disposition home or self-care (01) ==
LOC: ER 14:46
DX: N39.0 Urinary tract infection, site not specified (principal); R31.9 Hematuria, unspecified; Z46.6 Encounter for fitting and adjustment of urinary device
CPT/HCPCS: 99283; 96372; 36415; 87086; 85025; 87088; 80048; 81001; 87186; A9270 ×3; J1885; J3490; S0119

== ENCOUNTER 2019-07-30 13:53 | Emergency (ER) | payer MEDICARE ==
[2019-07-30] MEDS ORDERED: NORMAL SALINE 1000 ML 1,000 ML IV ONE (14:55)
[2019-07-30] MEDS ORDERED: ONDANSETRON HCL INJ/PF 4 MG/2 ML SDV IV ONE (14:55)
--- NOTE | 2019-07-30 14:55 | ER Document Report ---
ED Medical Screen (RME) - General Chief Complaint: Problem with Urinary Catheter Stated Complaint: VOMITING Time Seen by Provider: 07/30/19 14:39 Primary Care Provider: DANIAL LABOY MD [Primary Care Provider] - Follow up as needed TRAVEL OUTSIDE OF THE [place] IN LAST 30 DAYS: No - HPI Notes: 07/30/19 14:56 48-year-old male with history of suprapubic catheter to the emergency department with complaints of urinary frequency, bladder pain, nausea, vomiting diarrhea that began 3 days ago. He admits to subjective fevers and chills. He states that he was last on antibiotics 2 weeks ago for urinary tract infection. He denies any blood in his urine. He states that he typically wears an adult diaper but he has been having so much urinary frequency that he has been going through 3 or 4-day when he normally uses one a day. Performed brief medical screening exam on the patient. I placed initial labs. While the patient further evaluated and managed by main side provider. - Related Data Allergies/Adverse Reactions: No Known Allergies Allergy (Verified 07/13/19 14:47) Past Medical History - Social History Family history: Reviewed & Not Pertinent Renal/ Medical History: Reports: Hx Kidney Stones. Denies: Hx Peritoneal Dialysis Psychiatric Medical History: Reports: Hx Bipolar Disorder, Hx Borderline Personality Disorder, Hx Depression, Hx Schizophrenia Past Surgical History: Reports: Hx Cholecystectomy, Hx Genitourinary Surgery - Suprapubic catheter - Immunizations Immunizations up to date: Yes Hx Diphtheria, Pertussis, Tetanus Vaccination: Yes History of Influenza Vaccine for 08/2017 - 01/2018 Season: Unknown Physical Exam - Vital signs Vitals: Temp Pulse Resp BP Pulse Ox 98.2 F 91 20 101/69 97 07/30/19 14:03 07/30/19 14:03 07/30/19 14:03 07/30/19 14:03 07/30/19 14:03 Course - Vital Signs Vital signs: Temp Pulse Resp BP Pulse Ox 98.2 F 91 20 101/69 97 07/30/19 14:03 07/30/19 14:03 07/30/19 14:03 07/30/19 14:03 07/30/19 14:03 Doctor's Discharge - Discharge Referrals: DANIAL LABOY MD [Primary Care Provider] - Follow up as needed
[2019-07-30 17:18] LABS: HEMATOCRIT 39.1 % (37.9-51.0); HEMOGLOBIN 12.7 g/dL (13.5-17.0); MEAN CORPUSCULAR HEMOGLOBIN 24.9 pg (27.0-33.4); MEAN CORPUSCULAR HGB CONC 32.5 g/dL (32.0-36.0); MEAN CORPUSCULAR VOLUME 77 fl (80-97); PLATELET COUNT 312 10^3/uL (150-450); RED BLOOD COUNT 5.11 10^6/uL (4.35-5.55); RED CELL DISTRIBUTION WIDTH 20.5 % (11.5-14.0); WHITE BLOOD COUNT 7.2 10^3/uL (4.0-10.5)
--- NOTE | 2019-07-30 17:26 | ER Document Report ---
ED General - General Chief Complaint: Problem with Urinary Catheter Stated Complaint: VOMITING Time Seen by Provider: 07/30/19 14:39 Primary Care Provider: DANIAL LABOY MD [Primary Care Provider] - Follow up as needed TRAVEL OUTSIDE OF THE [place] IN LAST 30 DAYS: No - HPI Notes: Patient presents with 3 days of foul-smelling urine from his suprapubic catheter. He states he has had this for 6 years after getting transverse myelitis secondary to influenza vaccine shot. He has had subjective fevers and chills but has not actually taken his temperature. He has within several days of mild diarrhea. No vomiting but mild nausea. No cough congestion chest pain or shortness of breath. - Related Data Allergies/Adverse Reactions: No Known Allergies Allergy (Verified 07/13/19 14:47) Past Medical History - Social History Smoking Status: Unknown if Ever Smoked Family History: None, Reviewed & Not Pertinent, Hypertension Patient has suicidal ideation: No Patient has homicidal ideation: No Renal/ Medical History: Reports: Hx Kidney Stones. Denies: Hx Peritoneal Dialysis Psychiatric Medical History: Reports: Hx Bipolar Disorder, Hx Borderline Personality Disorder, Hx Depression, Hx Schizophrenia Past Surgical History: Reports: Hx Cholecystectomy, Hx Genitourinary Surgery - Suprapubic catheter - Immunizations Immunizations up to date: Yes Hx Diphtheria, Pertussis, Tetanus Vaccination: Yes Review of Systems - Review of Systems Constitutional: No symptoms reported EENT: No symptoms reported Cardiovascular: No symptoms reported Respiratory: No symptoms reported Gastrointestinal: No symptoms reported Genitourinary: See HPI Male Genitourinary: No symptoms reported Musculoskeletal: No symptoms reported Skin: No symptoms reported Hematologic/Lymphatic: No symptoms reported Neurological/Psychological: No symptoms reported Physical Exam - Vital signs Vitals: Temp Pulse Resp BP Pulse Ox 98.2 F 91 20 101/69 97 07/30/19 14:03 07/30/19 14:03 07/30/19 14:03 07/30/19 14:03 07/30/19 14:03 - General General appearance: Appears well, Alert - HEENT Head: Normocephalic, Atraumatic Eyes: Normal Conjunctiva: Normal Cornea: Normal Extraocular movements intact: Yes Pupils: PERRL - Respiratory Respiratory status: No respiratory distress Chest status: Nontender Breath sounds: Normal Chest palpation: Normal - Cardiovascular Rhythm: Regular Heart sounds: Normal auscultation Murmur: No - Abdominal Inspection: Normal Distension: No distension Bowel sounds: Normal Tenderness: Nontender, Other - Suprapubic catheter in place with cloudy urine in catheter. - Back Back: Normal, Nontender - Extremities General upper extremity: Normal inspection, Normal ROM - Neurological Neuro grossly intact: Yes Cognition: Normal Orientation: AAOx4 Course - Re-evaluation Re-evalutation: 07/30/19 20:43 Patient does show signs of infection with white blood cell count on urinalysis. Subjectively he has been stating he has been having fevers and chills afebrile in the emergency department. Due to his history, and reviewing old urine cultures he has been sensitive to Macrobid therefore will place on 10 days of Macrobid. Also sent for culture at this time and if sensitivities are inadequate he will be called for new antibiotics. Patient does not have any fevers has no serum leukocytosis labs within normal limits are nonsignificant. Suprapubic catheter was changed while in the emergency department. He is to call his urologist tomorrow to let them know he was in the emergency department. 07/30/19 20:44 - Vital Signs Vital signs: Temp Pulse Resp BP Pulse Ox 98.2 F 91 20 101/69 97 07/30/19 14:03 07/30/19 14:03 07/30/19 14:03 07/30/19 14:03 07/30/19 14:03 - Laboratory Result Diagrams: 07/30/19 16:47 07/30/19 16:47 Laboratory results interpreted by me: 07/30/19 07/30/19 07/30/19 16:47 16:47 19:50 Hgb 12.7 L MCV 77 L MCH 24.9 L RDW 20.5 H Eosinophils % (Manual) 8 H Glucose 68 L Urine Protein 100 H Urine Blood LARGE H Ur Leukocyte Esterase LARGE H Discharge - Discharge Clinical Impression: Suprapubic catheter Urinary tract infection Qualifiers: Urinary tract infection type: site unspecified Hematuria presence: with hematuria Qualified Code(s): N39.0 - Urinary tract infection, site not specified; R31.9 - Hematuria, unspecified Disposition: HOME, SELF-CARE Instructions: Urinary Tract Infection ([facility]), Nitrofurantoin ([facility]) Prescriptions: Nitrofurantoin Macrocrystal [Macrodantin] 100 mg PO BID 10 Days #20 capsule Phenazopyridine HCl [Pyridium 200 mg Tablet] 200 mg PO TID #6 tablet Referrals: DANIAL LABOY MD [Primary Care Provider] - Follow up as needed
[2019-07-30 17:39] LABS: ALBUMIN 4.1 g/dL (3.5-5.0); ALKALINE PHOSPHATASE 71 U/L (38-126); ANION GAP 8 (5-19); ASPARTATE AMINO TRANSFERASE 20 U/L (17-59); BILIRUBIN,DIRECT 0.1 mg/dL (0.0-0.4); BILIRUBIN,TOTAL 0.3 mg/dL (0.2-1.3); BLOOD UREA NITROGEN 11 mg/dL (7-20); CALCIUM 9.7 mg/dL (8.4-10.2); CARBON DIOXIDE 30 mmol/L (22-30); CHLORIDE 100 mmol/L (98-107); POTASSIUM 4.4 mmol/L (3.6-5.0); TOTAL PROTEIN 6.6 g/dL (6.3-8.2)
[2019-07-30 17:42] LABS: GLUCOSE 68 mg/dL (75-110)
[2019-07-30 18:00] LABS: ABSOLUTE LYMPHOCYTES# (MANUAL) 1.8 10^3/uL (0.5-4.7); ABSOLUTE MONOCYTES # (MANUAL) 0.5 10^3/uL (0.1-1.4); BASOPHILS % (MANUAL) 1 % (0-2); EOSINOPHILS % (MANUAL) 8 % (0-6); LYMPHOCYTES % (MANUAL) 25 % (13-45); MONOCYTES % (MANUAL) 7 % (3-13); SEGMENTED NEUTROPHILS % (MAN) 59 % (42-78); TOTAL CELLS COUNTED 100
[2019-07-30 18:01] LABS: ANISOCYTOSIS 2+; PLATELET COMMENT ADEQUATE
[2019-07-30 18:02] LABS: OVALOCYTES SLIGHT; POLYCHROMASIA SLIGHT; TOXIC VACUOLATION PRESENT
[2019-07-30 18:03] LABS: PLATELET LARGE PRESENT
[2019-07-30] MEDS ORDERED: KETOROLAC TROMETHAMINE INJ/PF 30 MG/1 ML SDV IV ONE (18:53)
[2019-07-30 20:28] LABS: APPEARANCE,URINE SLIGHTLY-CLOUDY; BILIRUBIN,URINE NEGATIVE (NEGATIVE); COLOR,URINE YELLOW; GLUCOSE, URINE NEGATIVE (NEGATIVE); KETONES,URINE NEGATIVE (NEGATIVE); LEUKOCYTE ESTERASE,URINE LARGE (NEGATIVE); NITRITE,URINE NEGATIVE (NEGATIVE); PROTEIN,URINE 100 mg/dL (NEGATIVE); URINE SPECIFIC GRAVITY 1.009; UROBILINOGEN,URINE NEGATIVE mg/dL (<2.0)
[2019-07-30 20:58] VITALS: BP 125/76
== END 2019-07-30 21:01 | disposition home or self-care (01) ==
LOC: ER 13:53
DX: N39.0 Urinary tract infection, site not specified (principal); R31.9 Hematuria, unspecified; T83.9XXA Unspecified complication of genitourinary prosthetic device, implant and graft, initial encounter; G37.3 Acute transverse myelitis in demyelinating disease of central nervous system
CPT/HCPCS: 36415; 83690; 85025; 80053; 81001; J1885; J2405; J7030; 87086; 87088

== ENCOUNTER 2019-08-24 15:48 | Emergency (ER) | payer MEDICARE ==
--- NOTE | 2019-08-24 16:11 | ER Document Report ---
ED Medical Screen (RME) - General Chief Complaint: Constipation Stated Complaint: CONSTIPATED Time Seen by Provider: 08/24/19 16:07 Primary Care Provider: DANIAL LABOY MD [Primary Care Provider] - Follow up as needed Information source: Patient Notes: Patient presents complaining of constipation for the past week. Patient does report nausea and vomiting x3 episodes today. Patient denies any fever. Patient has a history of neurogenic bladder and occasional constipation. I have greeted and performed a rapid initial assessment of this patient. A comprehensive ED assessment and evaluation of the patient, analysis of test results and completion of the medical decision making process will be conducted by additional ED providers. TRAVEL OUTSIDE OF THE [place] IN LAST 30 DAYS: No - Related Data Allergies/Adverse Reactions: No Known Allergies Allergy (Verified 08/24/19 16:08) Past Medical History - Social History Family history: Reviewed & Not Pertinent Renal/ Medical History: Reports: Hx Kidney Stones. Denies: Hx Peritoneal Dialysis Psychiatric Medical History: Reports: Hx Bipolar Disorder, Hx Borderline Personality Disorder, Hx Depression, Hx Schizophrenia Past Surgical History: Reports: Hx Cholecystectomy, Hx Genitourinary Surgery - Suprapubic catheter - Immunizations Immunizations up to date: Yes Hx Diphtheria, Pertussis, Tetanus Vaccination: Yes Physical Exam - Vital signs Vitals: Temp Pulse Resp BP Pulse Ox 98.4 F 96 16 126/84 H 100 08/24/19 15:55 08/24/19 15:55 08/24/19 15:55 08/24/19 15:55 08/24/19 15:55 - Abdominal Tenderness: Tender - Generalized abdomen Course - Vital Signs Vital signs: Temp Pulse Resp BP Pulse Ox 98.4 F 96 16 126/84 H 100 08/24/19 15:55 08/24/19 15:55 08/24/19 15:55 08/24/19 15:55 08/24/19 15:55 Doctor's Discharge - Discharge Referrals: DANIAL LABOY MD [Primary Care Provider] - Follow up as needed
[2019-08-24 16:42] LABS: ABSOLUTE BASOPHILS # (AUTO) 0.1 10^3/uL (0.0-0.2); ABSOLUTE EOSINOPHILS # (AUTO) 0.5 10^3/uL (0.0-0.6); ABSOLUTE LYMPHOCYTES (AUTO) 1.5 10^3/uL (0.5-4.7); ABSOLUTE MONOCYTES (AUTO) 0.9 10^3/uL (0.1-1.4); BASOPHILS % (AUTO) 1.3 % (0-2); EOSINOPHILS % (AUTO) 5.3 % (0-6); HEMATOCRIT 39.4 % (37.9-51.0); LYMPHOCYTES % (AUTO) 16.8 % (13-45); MEAN CORPUSCULAR HEMOGLOBIN 25.6 pg (27.0-33.4); MEAN CORPUSCULAR VOLUME 78 fl (80-97); MONOCYTES % (AUTO) 10.1 % (3-13); PLATELET COUNT 315 10^3/uL (150-450); RED BLOOD COUNT 5.08 10^6/uL (4.35-5.55); RED CELL DISTRIBUTION WIDTH 19.1 % (11.5-14.0); SEGMENTED NEUTROPHILS % (AUTO) 66.5 % (42-78); TOTAL CELLS COUNTED % (AUTO) 100 %
[2019-08-24 17:03] LABS: ALKALINE PHOSPHATASE 102 U/L (38-126); ANION GAP 9 (5-19); ASPARTATE AMINO TRANSFERASE 20 U/L (17-59); BILIRUBIN,DIRECT 0.1 mg/dL (0.0-0.4); BILIRUBIN,TOTAL 0.5 mg/dL (0.2-1.3); BLOOD UREA NITROGEN 13 mg/dL (7-20); CALCIUM 9.3 mg/dL (8.4-10.2); CARBON DIOXIDE 26 mmol/L (22-30); CHLORIDE 102 mmol/L (98-107); GLUCOSE 85 mg/dL (75-110); TOTAL PROTEIN 6.8 g/dL (6.3-8.2)
[2019-08-24 17:27] LABS: AMORPHOUS SEDIMENT,URINE TRACE /HPF; APPEARANCE,URINE CLOUDY; BILIRUBIN,URINE NEGATIVE (NEGATIVE); CALCIUM OXALATE CRYSTALS,URINE RARE /HPF; COLOR,URINE YELLOW; GLUCOSE, URINE 50 mg/dL (NEGATIVE); KETONES,URINE NEGATIVE (NEGATIVE); LEUKOCYTE ESTERASE,URINE LARGE (NEGATIVE); NITRITE,URINE POSITIVE (NEGATIVE); PROTEIN,URINE 30 mg/dL (NEGATIVE); URINE SPECIFIC GRAVITY 1.011; UROBILINOGEN,URINE NEGATIVE mg/dL (<2.0)
--- NOTE | 2019-08-24 17:37 | ER Document Report ---
ED General - General Chief Complaint: Constipation Stated Complaint: CONSTIPATED Time Seen by Provider: 08/24/19 16:07 Primary Care Provider: DANIAL LABOY MD [Primary Care Provider] - Follow up as needed TRAVEL OUTSIDE OF THE [place] IN LAST 30 DAYS: No - HPI Notes: Patient is a 48-year-old male with a history of transverse myelitis, with resultant neurogenic bladder and constipation issues, who presents to the emergency department for evaluation of abdominal pain. He states that he feels he has not had a good bowel movement in some time. He had nausea with 2 episodes of nonbloody, nonbilious emesis. He states he tried magnesium citrate, which only "made him poop water." He denies any fevers or chills. Normal urinary output. Scrubs his pain is crampy, rates it a 4 out of 5. - Related Data Allergies/Adverse Reactions: No Known Allergies Allergy (Verified 08/24/19 16:08) Past Medical History - General Information source: Patient - Social History Smoking Status: Never Smoker Chew tobacco use (# tins/day): No Frequency of alcohol use: None Drug Abuse: None Family History: None, Reviewed & Not Pertinent, Hypertension Patient has suicidal ideation: No Patient has homicidal ideation: No Neurological Medical History: Reports: Other - Transverse myelitis Renal/ Medical History: Reports: Hx Kidney Stones, Other - Neurogenic bladder. Denies: Hx Peritoneal Dialysis Psychiatric Medical History: Reports: Hx Bipolar Disorder, Hx Borderline Personality Disorder, Hx Depression, Hx Schizophrenia Past Surgical History: Reports: Hx Cholecystectomy, Hx Genitourinary Surgery - Suprapubic catheter - Immunizations Immunizations up to date: Yes Hx Diphtheria, Pertussis, Tetanus Vaccination: Yes Review of Systems - Review of Systems Constitutional: No symptoms reported EENT: No symptoms reported Cardiovascular: No symptoms reported Respiratory: No symptoms reported Gastrointestinal: See HPI Genitourinary: No symptoms reported Musculoskeletal: No symptoms reported Skin: No symptoms reported Neurological/Psychological: No symptoms reported Physical Exam - Vital signs Vitals: Temp Pulse Resp BP Pulse Ox 98.4 F 96 16 126/84 H 100 08/24/19 15:55 08/24/19 15:55 08/24/19 15:55 08/24/19 15:55 08/24/19 15:55 - Notes Notes: Vital signs reviewed, please refer to chart. Head is normocephalic, atraumatic. Pupils equal round, reactive to light. Neck is supple without meningismus. Heart is regular rate and rhythm. Lungs are clear to auscultation bilaterally. Abdomen is soft, nontender, normoactive bowel sounds throughout. Suprapubic catheter in place lower abdomen, no surrounding erythema or edema. Extremities without cyanosis, clubbing. Posterior calves are nontender. Peripheral pulses are equal. Skin is warm and dry. Patient is awake, alert, cooperative with examiner. Course - Re-evaluation Re-evalutation: 08/24/19 17:36 Patient presents emergency department for evaluation of abdominal pain. He had some vomiting as well. Given this information I did feel it reasonable to check urinalysis as well. This is pending, and her labs are unremarkable. We will continue to monitor. 08/24/19 21:10 Urinalysis is likely from colonization. Patient states that this feels nothing similar to UTIs he said in the past. Enema x2. He had good results, but still felt constipated. We will send patient home with instructions to continue MiraLAX and close follow-up. He is to return to the ED with worsening. 08/24/19 21:26 - Vital Signs Vital signs: Temp Pulse Resp BP Pulse Ox 98.4 F 96 16 126/84 H 100 08/24/19 15:55 08/24/19 15:55 08/24/19 15:55 08/24/19 15:55 08/24/19 15:55 - Laboratory Result Diagrams: 08/24/19 16:17 08/24/19 16:17 Laboratory results interpreted by me: 08/24/19 08/24/19 08/24/19 16:17 16:17 17:00 Hgb 13.0 L MCV 78 L MCH 25.6 L RDW 19.1 H Sodium 136.5 L Urine Protein 30 H Urine Glucose (UA) 50 H Urine Blood SMALL H Urine Nitrite POSITIVE H Ur Leukocyte Esterase LARGE H - Diagnostic Test Radiology reviewed: Image reviewed, Reports reviewed Discharge - Discharge Clinical Impression: Constipation Condition: Stable Disposition: HOME, SELF-CARE Instructions: Constipation ([facility]) Additional Instructions: Try stool softeners at home, such as MiraLAX daily. Follow-up with primary care, return to the ED with worsening. Referrals: DANIAL LABOY MD [Primary Care Provider] - Follow up as needed
--- NOTE | 2019-08-24 17:39 | RADIOLOGY REPORT (SQ) ---
EXAM DESCRIPTION: KUB/ABDOMEN (SINGLE VIEW) COMPLETED DATE/TIME: 08/24/2019 5:24 pm REASON FOR STUDY: constipation COMPARISON: KUB 04/19/2019. NUMBER OF VIEWS: One view. TECHNIQUE: Supine radiographic image of the abdomen acquired. LIMITATIONS: None. FINDINGS: BOWEL GAS PATTERN: Prominent stool throughout the colon. Mildly prominent gas and stool-f illed large bowel within the mid left abdomen. CALCIFICATIONS: No suspicious calcifications. SOFT TISSUES: No gross mass or suggestion of organomegaly. HARDWARE: Right upper quadrant surgical clips. 11 abdomen surgical coils. Tubing projecting over th e lower pelvis. BONES: No acute fracture. No worrisome bone lesions. OTHER: No other significant finding. IMPRESSION: Prominent stool throughout the colon. Mildly prominent gas and stool-filled large bowel within the mid left abdomen. TECHNICAL DOCUMENTATION: JOB ID: [id number] [employer]- All Rights Reserved Reading location - IP/workstation name: [email or web address]
[2019-08-24] MEDS ORDERED: MINERAL OIL 30 ML UDCUP PR ONE (18:13)
[2019-08-24] MEDS ORDERED: MINERAL OIL ENEMA 133 ML PR ONE (20:41)
[2019-08-24 21:38] VITALS: BP 131/87
== END 2019-08-24 21:38 | disposition home or self-care (01) ==
LOC: ER 15:48
DX: K59.00 Constipation, unspecified (principal); R11.2 Nausea with vomiting, unspecified; R10.9 Unspecified abdominal pain; Z87.442 Personal history of urinary calculi; Z90.49 Acquired absence of other specified parts of digestive tract; Z87.440 Personal history of urinary (tract) infections
CPT/HCPCS: 36415; 83690; 85025; 80053; 81001; 74018; C1758; J3490 ×2; 99283

== ENCOUNTER 2019-09-09 12:24 | Emergency (ER) | payer MEDICARE ==
[2019-09-09] MEDS ORDERED: ONDANSETRON 4 MG TAB.RAPDIS PO ONE (12:39)
[2019-09-09] MEDS ORDERED: KETOROLAC TROMETHAMINE 60 MG/2 ML SDV IM ONE (12:39)
--- NOTE | 2019-09-09 12:42 | ER Document Report ---
ED Medical Screen (RME) - General Chief Complaint: Problem with Urinary Catheter Stated Complaint: URINARY PROBLEMS,VOMITING,DIRREHA Time Seen by Provider: 09/09/19 12:28 Primary Care Provider: LUKE PEREZ MD [Primary Care Provider] - Follow up as needed Mode of Arrival: Ambulatory Information source: Patient Notes: 48-year-old male with indwelling catheter for the past 8 years, bipolar, borderline personality, depression and schizophrenia presents to the emergency department with complaints of bladder pain nausea vomiting lower abdominal pain that started this morning. No complaints of fever or diarrhea. Reports he knows when he has a urinary tract infection and this feels the same way. Patient is calm and answering all questions appropriately. Reports he started taking a new antipsychotic medication, lamitine, and its made a world of difference. I have greeted and performed a rapid initial assessment of this patient. A comprehensive ED assessment and evaluation of the patient, analysis of test results and completion of the medical decision making process will be conducted by additional ED providers. Dictation of this chart was performed using voice recognition software; therefore, there may be some unintended grammatical errors. Psych history TRAVEL OUTSIDE OF THE [place] IN LAST 30 DAYS: No - Related Data Allergies/Adverse Reactions: No Known Allergies Allergy (Verified 09/09/19 12:30) Past Medical History - Social History Chew tobacco use (# tins/day): No Frequency of alcohol use: None Drug Abuse: None Family history: Reviewed & Not Pertinent Renal/ Medical History: Reports: Hx Kidney Stones. Denies: Hx Peritoneal Dialysis Psychiatric Medical History: Reports: Hx Bipolar Disorder, Hx Borderline Personality Disorder, Hx Depression, Hx Schizophrenia Past Surgical History: Reports: Hx Cholecystectomy, Hx Genitourinary Surgery - Suprapubic catheter - Immunizations Immunizations up to date: Yes Hx Diphtheria, Pertussis, Tetanus Vaccination: Yes Physical Exam - Vital signs Vitals: Temp Pulse Resp BP Pulse Ox 97.6 F 94 16 148/88 H 98 09/09/19 12:09/09/19 12:28 09/09/19 12:28 09/09/19 12:09/09/19 12:28 Course - Vital Signs Vital signs: Temp Pulse Resp BP Pulse Ox 97.6 F 94 16 148/88 H 98 09/09/19 12:09/09/19 12:28 09/09/19 12:28 09/09/19 12:28 09/09/19 12:28 Doctor's Discharge - Discharge Referrals: LUKE PEREZ MD [Primary Care Provider] - Follow up as needed
[2019-09-09 13:15] LABS: ABSOLUTE BASOPHILS # (AUTO) 0.1 10^3/uL (0.0-0.2); ABSOLUTE EOSINOPHILS # (AUTO) 0.3 10^3/uL (0.0-0.6); ABSOLUTE LYMPHOCYTES (AUTO) 1.1 10^3/uL (0.5-4.7); ABSOLUTE MONOCYTES (AUTO) 0.6 10^3/uL (0.1-1.4); BASOPHILS % (AUTO) 1.1 % (0-2); EOSINOPHILS % (AUTO) 5.1 % (0-6); HEMATOCRIT 39.4 % (37.9-51.0); HEMOGLOBIN 12.7 g/dL (13.5-17.0); LYMPHOCYTES % (AUTO) 18.5 % (13-45); MEAN CORPUSCULAR HEMOGLOBIN 25.2 pg (27.0-33.4); MEAN CORPUSCULAR HGB CONC 32.2 g/dL (32.0-36.0); MEAN CORPUSCULAR VOLUME 78 fl (80-97); MONOCYTES % (AUTO) 9.6 % (3-13); PLATELET COUNT 266 10^3/uL (150-450); RED BLOOD COUNT 5.03 10^6/uL (4.35-5.55); RED CELL DISTRIBUTION WIDTH 18.4 % (11.5-14.0); SEGMENTED NEUTROPHILS % (AUTO) 65.7 % (42-78); TOTAL CELLS COUNTED % (AUTO) 100 %; WHITE BLOOD COUNT 6.2 10^3/uL (4.0-10.5)
[2019-09-09 13:34] LABS: ALBUMIN 3.7 g/dL (3.5-5.0); ALKALINE PHOSPHATASE 89 U/L (38-126); ANION GAP 9 (5-19); ASPARTATE AMINO TRANSFERASE 21 U/L (17-59); BILIRUBIN,DIRECT 0.1 mg/dL (0.0-0.4); BILIRUBIN,TOTAL 0.4 mg/dL (0.2-1.3); BLOOD UREA NITROGEN 13 mg/dL (7-20); CALCIUM 9.2 mg/dL (8.4-10.2); CARBON DIOXIDE 25 mmol/L (22-30); CHLORIDE 104 mmol/L (98-107); GLUCOSE 208 mg/dL (75-110); TOTAL PROTEIN 6.3 g/dL (6.3-8.2)
[2019-09-09] MEDS ORDERED: METOCLOPRAMIDE HCL 10 MG TABLET PO ONE (13:44)
[2019-09-09] MEDS ORDERED: ACETAMINOPHEN 325 MG TABLET PO ONE (13:44)
[2019-09-09 13:47] LABS: APPEARANCE,URINE CLOUDY; BILIRUBIN,URINE NEGATIVE (NEGATIVE); COLOR,URINE YELLOW; GLUCOSE, URINE 150 mg/dL (NEGATIVE); KETONES,URINE NEGATIVE (NEGATIVE); LEUKOCYTE ESTERASE,URINE LARGE (NEGATIVE); NITRITE,URINE NEGATIVE (NEGATIVE); PROTEIN,URINE 30 mg/dL (NEGATIVE); URINE SPECIFIC GRAVITY 1.004; UROBILINOGEN,URINE NEGATIVE mg/dL (<2.0)
--- NOTE | 2019-09-09 13:47 | ER Document Report ---
HPI - HPI Time Seen by Provider: 09/09/19 12:28 Pain Level: 3 Notes: Patient is a 48-year-old male with a history of indwelling catheter for the past 8 years, bipolar, borderline personality, depression and schizophrenia who presents complaining of suprapubic pain, cloudy urine, and probable UTI. Patient states he does have occasional nausea with one episode of vomiting. He is otherwise having normal bowel movements. Denies drug allergies. No other recent illness. Denies any headache, fever, neck pain, URI, sore throat, chest pain, palpitations, syncope, cough, shortness of breath, wheeze, dyspnea, diarrhea, back pain, numbness/tingling, saddle anesthesia, muscle paralysis/weakness, or rash. - ROS Systems Reviewed and Negative: Yes All other systems reviewed and negative - REPRODUCTIVE Reproductive: DENIES: : Past Medical History - General Information source: Patient - Social History Smoking Status: Never Smoker Chew tobacco use (# tins/day): No Frequency of alcohol use: None Drug Abuse: None Family History: None, Reviewed & Not Pertinent, Hypertension Patient has suicidal ideation: No Patient has homicidal ideation: No Renal/ Medical History: Reports: Hx Kidney Stones. Denies: Hx Peritoneal Dialysis Psychiatric Medical History: Reports: Hx Bipolar Disorder, Hx Borderline Personality Disorder, Hx Depression, Hx Schizophrenia Past Surgical History: Reports: Hx Cholecystectomy, Hx Genitourinary Surgery - Suprapubic catheter - Immunizations Immunizations up to date: Yes Hx Diphtheria, Pertussis, Tetanus Vaccination: Yes Vertical Provider Document - CONSTITUTIONAL Agree With Documented VS: Yes Notes: PHYSICAL EXAMINATION: GENERAL: Well-appearing, well-nourished and in no acute distress. HEAD: Atraumatic, normocephalic. EYES: Pupils equal round and reactive to light, extraocular movements intact, sclera anicteric, conjunctiva are normal. ENT: Nares patent and without discharge. oropharynx clear without exudates. No tonsilar hypertrophy or erythema. Moist mucous membranes. NECK: Normal range of motion, supple without lymphadenopathy LUNGS: Breath sounds clear to auscultation bilaterally and equal. No wheezes rales or rhonchi. HEART: Regular rate and rhythm without murmurs, rubs, gallops. ABDOMEN: Soft, nontender, nondistended abdomen. No guarding, no rebound. Normal bowel sounds present. No CVA tenderness bilaterally. Musculoskeletal: FROM to passive/active. Strength 5+/5. Extremities: No cyanosis, clubbing, or edema b/l. Peripheral pulses 2+. Capillary refill less than 3 seconds. NEUROLOGICAL: Normal speech, normal gait. PSYCH: Normal mood, normal affect. SKIN: Warm, Dry, normal turgor, no rashes or lesions noted. - INFECTION CONTROL TRAVEL OUTSIDE OF THE [place] IN LAST 30 DAYS: No Course - Re-evaluation Re-evalutation: 09/09/19 14:50 Patient is a 48-year-old male with a history of recurrent UTI who presents with an acute UTI. Vitals are acceptable without significant tachycardia, tachypnea, or hypoxia. PE is otherwise unremarkable. Patient is nontoxic-appearing and is tolerating p.o. without difficulty. Abdomen is soft and nontender. Labs otherwise unremarkable aside from urinalysis. Urine culture is pending. No further work-up warranted. Low suspicion/risk for acute appendicitis, bowel obs truction, acute cholecystitis, perforated diverticulitis, incarcerated hernia, pancreatitis, perforated ulcer, peritonitis, sepsis, testicular torsion, or other systemic emergent condition at this time. Patient is aware that his condition can change from initial presentation and he needs to monitor symptoms closely and seek medical attention if any acute changes. Due to urine culture results previously, I will sned him on macrobid and keflex. Zofran for nausea. Conservative measures otherwise for symptoms. Recheck with PCM in 2-3 days. Consider consult with a urologist. Return to the ED with any worsening/concerning symptoms otherwise as reviewed in discharge. Patient is in agreement. - Vital Signs Vital signs: Temp Pulse Resp BP Pulse Ox 97.6 F 74 18 124/81 97 09/09/19 13:36 09/09/19 13:36 09/09/19 13:36 09/09/19 13:36 09/09/19 13:36 - Laboratory Result Diagrams: 09/09/19 12:45 09/09/19 12:45 Laboratory results interpreted by me: 09/09/19 12:45 Hgb 12.7 L MCV 78 L MCH 25.2 L RDW 18.4 H Discharge - Discharge Clinical Impression: Acute UTI (urinary tract infection) Condition: Stable Disposition: HOME, SELF-CARE Instructions: Cephalexin ([facility]), Urinary Tract Infection ([facility]), Nitrofurantoin ([facility]) Additional Instructions: Push fluids (i.e. water) Proper hygenic technique Keep the skin clean Tylenol/ibuprofen as needed Take medications as directed F/u with your PCM in 3-5 days for a recheck Consider consult with a Urologist for ongoing/worsening symptoms. Return to the ED with any worsening symptoms and/or development of fever, headache, chest pain, palpitations, syncope, shortness of breath, trouble breathing, abdominal pain, n/v/d, blood in stool/urine, loss of control of bowel/bladder, urinary retention, or other worsening symptoms that are concerning to you. Prescriptions: Cephalexin Monohydrate [Keflex 500 mg Capsule] 500 mg PO TID #21 capsule Nitrofurantoin/Nitrofuran Mac [Macrobid 100 mg Capsule] 1 tab PO BID #14 capsule Ibuprofen [Motrin 800 mg Tablet] 800 mg PO Q8H PRN #15 tab PRN Reason: Ondansetron [Zofran Odt 4 mg Tablet] 1 - 2 tab PO Q4H PRN #15 tab.rapdis PRN Reason: For Nausea/Vomiting Referrals: [facility] [Provider Group] - Follow up as needed
[2019-09-09 13:48] LABS: ADD MANUAL MICROSCOPIC YES; WBC,URINE 50-100 /HPF
[2019-09-09 13:49] LABS: BACTERIA,URINE 2+ /HPF
[2019-09-09] MEDS ORDERED: OXYCODONE HCL IR 5 MG TABLET PO ONE (14:53)
[2019-09-09 15:06] VITALS: BP 125/83
== END 2019-09-09 15:06 | disposition home or self-care (01) ==
LOC: ER 12:24
DX: N39.0 Urinary tract infection, site not specified (principal); R10.30 Lower abdominal pain, unspecified; F31.9 Bipolar disorder, unspecified; F60.3 Borderline personality disorder; Z90.49 Acquired absence of other specified parts of digestive tract; Z87.442 Personal history of urinary calculi; Z87.440 Personal history of urinary (tract) infections
CPT/HCPCS: 99283; 36415; 87070; 81001; A9270 ×4; J1885; S0119

== ENCOUNTER → 2019-09-09 | Outpatient (CLI) | payer MEDICARE ==
[2019-09-09 12:31] LABS: ABSOLUTE BASOPHILS # (AUTO) 0.1 10^3/uL (0.0-0.2); ABSOLUTE EOSINOPHILS # (AUTO) 0.4 10^3/uL (0.0-0.6); ABSOLUTE LYMPHOCYTES (AUTO) 1.4 10^3/uL (0.5-4.7); ABSOLUTE MONOCYTES (AUTO) 0.4 10^3/uL (0.1-1.4); ABSOLUTE NEUT (AUTO) 4.2 10^3/uL (1.7-8.2); BASOPHILS % (AUTO) 1.2 % (0-2); EOSINOPHILS % (AUTO) 5.5 % (0-6); HEMATOCRIT 41.1 % (37.9-51.0); HEMOGLOBIN 13.1 g/dL (13.5-17.0); LYMPHOCYTES % (AUTO) 21.3 % (13-45); MEAN CORPUSCULAR HEMOGLOBIN 25.2 pg (27.0-33.4); MEAN CORPUSCULAR HGB CONC 31.9 g/dL (32.0-36.0); MEAN CORPUSCULAR VOLUME 79 fl (80-97); PLATELET COUNT 294 10^3/uL (150-450); RED BLOOD COUNT 5.21 10^6/uL (4.35-5.55); RED CELL DISTRIBUTION WIDTH 18.6 % (11.5-14.0); TOTAL CELLS COUNTED % (AUTO) 100 %; WHITE BLOOD COUNT 6.4 10^3/uL (4.0-10.5)
[2019-09-09 12:38] LABS: APPEARANCE,URINE SLIGHTLY-CLOUDY; BILIRUBIN,URINE NEGATIVE (NEGATIVE); COLOR,URINE YELLOW; GLUCOSE, URINE NEGATIVE (NEGATIVE); KETONES,URINE NEGATIVE (NEGATIVE); URINE SPECIFIC GRAVITY 1.018
[2019-09-09 12:39] LABS: ADD MANUAL MICROSCOPIC YES; LEUKOCYTE ESTERASE,URINE LARGE (NEGATIVE); NITRITE,URINE NEGATIVE (NEGATIVE); PROTEIN,URINE 100 mg/dL (NEGATIVE)
[2019-09-09 12:51] LABS: ANION GAP 11 (5-19); BLOOD UREA NITROGEN 12 mg/dL (7-20); CALCIUM 9.5 mg/dL (8.4-10.2); CARBON DIOXIDE 24 mmol/L (22-30); CHLORIDE 103 mmol/L (98-107); GLUCOSE 245 mg/dL (75-110)
[2019-09-09 12:55] LABS: BACTERIA,URINE 3+ /HPF; WBC,URINE 30-50 /HPF
--- NOTE | 2019-09-09 13:48 | EKG REPORT ---
SEVERITY:- ABNORMAL ECG - SINUS RHYTHM LEFT ANTERIOR FASCICULAR BLOCK : Confirmed by: Marco Lux MD 09-Sep-2019 13:47:11
--- NOTE | 2019-09-09 14:05 | RADIOLOGY REPORT (SQ) ---
EXAM DESCRIPTION: CHEST PA/LATERAL COMPLETED DATE/TIME: 09/09/2019 1:11 pm REASON FOR STUDY: PRE-OP COMPARISON: 06/20/2019 EXAM PARAMETERS: NUMBER OF VIEWS: two views TECHNIQUE: Digital Frontal and Lateral radiographic views of the chest acquired. RADIATION DOSE: NA LIMITATIONS: none FINDINGS: LUNGS AND PLEURA: No opacities, masses or pneumothorax. No pleural effusion. MEDIASTINUM AND HILAR STRUCTURES: No masses or contour abnormalities. HEART AND VASCULAR STRUCTURES: Heart normal size. No evidence for failure. BONES: No acute findings. HARDWARE: None in the chest. OTHER: No other significant finding. IMPRESSION: NO SIGNIFICANT RADIOGRAPHIC FINDING IN THE CHEST. TECHNICAL DOCUMENTATION: JOB ID: [id number] [employer]- All Rights Reserved Reading location - IP/workstation name: [email or web address]
== END ==
LOC: OD 11:38
PROVIDERS: ATTEND Orthopaedic Surgery
DX: Z01.810 Encounter for preprocedural cardiovascular examination (principal); Z01.811 Encounter for preprocedural respiratory examination; Z01.812 Encounter for preprocedural laboratory examination; M17.11 Unilateral primary osteoarthritis, right knee
CPT/HCPCS: 36415; 71046; 80048; 81001; 85025; 93005; 93010

== ENCOUNTER 2019-09-12 15:59 | Emergency (ER) | payer MEDICARE ==
[2019-09-12 16:35] VITALS: BP 114/75
[2019-09-12] MEDS ORDERED: BISACODYL 5 MG TABEC PO ONE (16:38)
[2019-09-12] MEDS ORDERED: NORMAL SALINE 1000 ML 1,000 ML IV ONE (16:40)
--- NOTE | 2019-09-12 16:40 | ER Document Report ---
ED Medical Screen (RME) - General Chief Complaint: Constipation Stated Complaint: CONSTIPATED/NEUROGENIS BOWEL Time Seen by Provider: 09/12/19 16:37 Primary Care Provider: DANIAL LABOY MD [Primary Care Provider] - Follow up as needed Notes: Patient is a 48-year-old male with a history of neurogenic bladder who presents the emergency department with constipation. Patient states that he has not had a bowel movement for the past week. Patient states that he tried MiraLAX and enema, but has not had a bowel movement since. Exam: Tender generalized abdomen. I have greeted and performed a rapid initial assessment of this patient. A comprehensive ED assessment and evaluation of the patient, analysis of test results and completion of medical decision making process will be conducted by an additional ED providers. TRAVEL OUTSIDE OF THE [place] IN LAST 30 DAYS: No - Related Data Allergies/Adverse Reactions: No Known Allergies Allergy (Verified 09/09/19 12:30) Home Medications: keflex, macrobid, zofran, "lamatine" Past Medical History - Social History Chew tobacco use (# tins/day): No Frequency of alcohol use: None Drug Abuse: None Family history: Reviewed & Not Pertinent Renal/ Medical History: Reports: Hx Kidney Stones. Denies: Hx Peritoneal Dialysis Psychiatric Medical History: Reports: Hx Bipolar Disorder, Hx Borderline Personality Disorder, Hx Depression, Hx Schizophrenia Past Surgical History: Reports: Hx Cholecystectomy, Hx Genitourinary Surgery - Suprapubic catheter - Immunizations Immunizations up to date: Yes Hx Diphtheria, Pertussis, Tetanus Vaccination: Yes Physical Exam - Vital signs Vitals: Temp Pulse Resp BP Pulse Ox 98.1 F 113 H 18 114/75 100 09/12/19 16:34 09/12/19 16:34 09/12/19 16:34 09/12/19 16:34 09/12/19 16:34 Course - Vital Signs Vital signs: Temp Pulse Resp BP Pulse Ox 98.1 F 113 H 18 114/75 100 09/12/19 16:34 09/12/19 16:34 09/12/19 16:34 09/12/19 16:34 09/12/19 16:34 Doctor's Discharge - Discharge Referrals: DANIAL LABOY MD [Primary Care Provider] - Follow up as needed
--- NOTE | 2019-09-12 18:04 | RADIOLOGY REPORT (SQ) ---
EXAM DESCRIPTION: KUB/ABDOMEN (SINGLE VIEW) COMPLETED DATE/TIME: 09/12/2019 5:38 pm REASON FOR STUDY: constipation COMPARISON: 08/24/2019 NUMBER OF VIEWS: One view. TECHNIQUE: Supine radiographic image of the abdomen acquired. LIMITATIONS: None. FINDINGS: BOWEL GAS PATTERN: Nonobstructive bowel gas pattern. No dilated loops. CONSTIPATION: marked CALCIFICATIONS: No suspicious calcifications. SOFT TISSUES: No gross mass or suggestion of organomegaly. HARDWARE: Vo catheter. Cholecystectomy clips. Surgical changes in the left mid abdomen. BONES: No acute fracture. No worrisome bone lesions. OTHER: No other significant finding. IMPRESSION: NO RADIOGRAPHIC EVIDENCE FOR ACUTE ABDOMINAL DISEASE. Marked constipation. TECHNICAL DOCUMENTATION: JOB ID: [id number] 2010 [employer]- All Rights Reserved Reading location - IP/workstation name: [email or web address]
[2019-09-12 19:00] LABS: ABSOLUTE BASOPHILS # (AUTO) 0.1 10^3/uL (0.0-0.2); ABSOLUTE EOSINOPHILS # (AUTO) 0.4 10^3/uL (0.0-0.6); ABSOLUTE LYMPHOCYTES (AUTO) 1.9 10^3/uL (0.5-4.7); ABSOLUTE MONOCYTES (AUTO) 0.7 10^3/uL (0.1-1.4); ABSOLUTE NEUT (AUTO) 5.8 10^3/uL (1.7-8.2); BASOPHILS % (AUTO) 1.3 % (0-2); EOSINOPHILS % (AUTO) 4.7 % (0-6); HEMATOCRIT 38.6 % (37.9-51.0); HEMOGLOBIN 12.8 g/dL (13.5-17.0); LYMPHOCYTES % (AUTO) 20.9 % (13-45); MEAN CORPUSCULAR HEMOGLOBIN 25.9 pg (27.0-33.4); MEAN CORPUSCULAR HGB CONC 33.2 g/dL (32.0-36.0); MEAN CORPUSCULAR VOLUME 78 fl (80-97); MONOCYTES % (AUTO) 7.8 % (3-13); PLATELET COUNT 297 10^3/uL (150-450); RED BLOOD COUNT 4.95 10^6/uL (4.35-5.55); RED CELL DISTRIBUTION WIDTH 18.7 % (11.5-14.0); SEGMENTED NEUTROPHILS % (AUTO) 65.3 % (42-78); TOTAL CELLS COUNTED % (AUTO) 100 %; WHITE BLOOD COUNT 8.9 10^3/uL (4.0-10.5)
[2019-09-12 19:24] LABS: ALBUMIN 3.7 g/dL (3.5-5.0); ALKALINE PHOSPHATASE 92 U/L (38-126); ANION GAP 8 (5-19); ASPARTATE AMINO TRANSFERASE 23 U/L (17-59); BILIRUBIN,DIRECT 0.1 mg/dL (0.0-0.4); BILIRUBIN,TOTAL 0.3 mg/dL (0.2-1.3); BLOOD UREA NITROGEN 15 mg/dL (7-20); CALCIUM 9.5 mg/dL (8.4-10.2); CARBON DIOXIDE 25 mmol/L (22-30); CHLORIDE 104 mmol/L (98-107); GLUCOSE 80 mg/dL (75-110); TOTAL PROTEIN 6.3 g/dL (6.3-8.2)
[2019-09-12] MEDS ORDERED: MINERAL OIL 30 ML UDCUP PR ONE (21:10)
[2019-09-12] MEDS ORDERED: DICYCLOMINE HCL INJ 20 MG/2 ML AMPULE IM ONE (21:11)
--- NOTE | 2019-09-12 21:23 | ER Document Report ---
ED General - General Chief Complaint: Constipation Stated Complaint: CONSTIPATED/NEUROGENIS BOWEL Time Seen by Provider: 09/12/19 16:37 Primary Care Provider: DANIAL LABOY MD [Primary Care Provider] - Follow up as needed TRAVEL OUTSIDE OF THE [place] IN LAST 30 DAYS: No - HPI Notes: Patient is a 48-year-old male who presents the emergency department for evaluation of constipation. He has a history of chronic constipation with neurogenic bowel and bladder following a bout of transverse myelitis. He states he has not had a bowel movement in a week. He is added lots of fiber Gummies and pills, tried some MiraLAX and magnesium citrate at home. He states he has not had any relief. He is still passing gas. He complains of a cramping pain in his entire abdomen. Nothing seems to make it better. He had nausea with one episode of emesis yesterday. - Related Data Allergies/Adverse Reactions: No Known Allergies Allergy (Verified 09/09/19 12:30) Home Medications: List reviewed with patient, please see chart Past Medical History - General Information source: Patient - Social History Smoking Status: Never Smoker Chew tobacco use (# tins/day): No Frequency of alcohol use: None Drug Abuse: None Family History: None, Reviewed & Not Pertinent, Hypertension Patient has suicidal ideation: No Patient has homicidal ideation: No Neurological Medical History: Reports: Other - History of transverse myelitis Renal/ Medical History: Reports: Hx Kidney Stones, Other - Suprapubic catheter. Denies: Hx Peritoneal Dialysis Psychiatric Medical History: Reports: Hx Bipolar Disorder, Hx Borderline Personality Disorder, Hx Depression, Hx Schizophrenia Past Surgical History: Reports: Hx Cholecystectomy, Hx Genitourinary Surgery - Suprapubic catheter - Immunizations Immunizations up to date: Yes Hx Diphtheria, Pertussis, Tetanus Vaccination: Yes Review of Systems - Review of Systems Constitutional: No symptoms reported EENT: No symptoms reported Cardiovascular: No symptoms reported Respiratory: No symptoms reported Gastrointestinal: See HPI Genitourinary: No symptoms reported Musculoskeletal: No symptoms reported Skin: No symptoms reported Neurological/Psychological: No symptoms reported Physical Exam - Vital signs Vitals: Temp Pulse Resp BP Pulse Ox 98.1 F 113 H 18 114/75 100 09/12/19 16:34 09/12/19 16:34 09/12/19 16:34 09/12/19 16:34 09/12/19 16:34 - Notes Notes: Vital signs reviewed, please refer to chart. Head is normocephalic, atraumatic. Pupils equal round, reactive to light. Neck is supple without meningismus. Heart is regular rate and rhythm. Lungs are clear to auscultation bilaterally. Abdomen is mildly distended, diffusely tender without rebound or guarding, normoactive bowel sounds throughout. Extremities without cyanosis, clubbing. Posterior calves are nontender. Peripheral pulses are equal. Skin is warm and dry. Patient is awake, alert, cooperative with examiner. Course - Re-evaluation Re-evalutation: 09/12/19 21:23 Patient is a 48-year-old male who presents emergency department for evaluation of abdominal pain and constipation. This is a chronic problem for him. I exp lained to the patient that he should not be taking increased fiber supplements, particularly beyond recommended amounts. This will likely just bulk up his stool and make it harder to pass. I did order an enema. We will continue to monitor. 09/12/19 23:27 Patient had some results from the enema. The Bentyl helped his pain. We will send him home with Bentyl, instructions in regards to constipation. He is to follow-up with primary care next week, return to the ED with worsening. - Vital Signs Vital signs: Temp Pulse Resp BP Pulse Ox 98.1 F 113 H 18 114/75 100 09/12/19 16:34 09/12/19 16:34 09/12/19 16:34 09/12/19 16:34 09/12/19 16:34 - Laboratory Result Diagrams: 09/12/19 18:48 09/12/19 18:48 Laboratory results interpreted by me: 09/12/19 18:48 Hgb 12.8 L MCV 78 L MCH 25.9 L RDW 18.7 H Discharge - Discharge Clinical Impression: Constipation Qualifiers: Constipation type: unspecified constipation type Qualified Code(s): K59.00 - Constipation, unspecified Condition: Stable Disposition: HOME, SELF-CARE Instructions: Constipation ([facility]), Laxative ([facility]) Additional Instructions: Limit yourself to only the daily recommended dosage of fiber supplementation. Start MiraLAX twice daily to keep stool soft. Bentyl as needed for abdominal pain. Follow-up with primary care next week. Return to the emergency department with worsening or new concerning symptoms. Referrals: DANIAL LABOY MD [Primary Care Provider] - Follow up as needed
== END 2019-09-13 00:05 | disposition home or self-care (01) ==
LOC: ER 15:59
DX: K59.00 Constipation, unspecified (principal); R10.84 Generalized abdominal pain; R11.2 Nausea with vomiting, unspecified; Z87.442 Personal history of urinary calculi; Z90.49 Acquired absence of other specified parts of digestive tract
CPT/HCPCS: 36415; 85025; 80053; 74018; A9270 ×2; J0500; J7030; 96360; 96361; 96372; 99283; J3490

== ENCOUNTER 2019-09-16 07:39 | Emergency (ER) | payer MEDICARE ==
[2019-09-16] MEDS ORDERED: MORPHINE SULFATE 10 MG/ML INJ IV ONE (08:03)
[2019-09-16] MEDS ORDERED: ONDANSETRON HCL INJ/PF 4 MG/2 ML SDV IV ONE (08:03)
--- NOTE | 2019-09-16 08:14 | ER Document Report ---
ED General - General Chief Complaint: Urinary Problem Stated Complaint: FLANK PAIN Time Seen by Provider: 09/16/19 07:51 Primary Care Provider: DANIAL LABOY MD [Primary Care Provider] - Follow up in 3-5 days Notes: 48-year-old male with chronic suprapubic catheter presents for right flank pain, nausea/vomiting, hematuria, and darker urine since last night. Patient has had a suprapubic catheter placed since 2011 secondary to transverse myelitis, patient has had suprapubic catheter changed 5 weeks ago. Is currently under treatment for UTI with Macrobid and Keflex, patient has 2 doses left. Patient denies fever, chest pain, abdominal pain, dyspnea. TRAVEL OUTSIDE OF THE [place] IN LAST 30 DAYS: No - Related Data Allergies/Adverse Reactions: No Known Allergies Allergy (Verified 09/09/19 12:30) Past Medical History - Social History Smoking Status: Unknown if Ever Smoked Family History: None, Reviewed & Not Pertinent, Hypertension Patient has suicidal ideation: No Patient has homicidal ideation: No Renal/ Medical History: Reports: Hx Kidney Stones. Denies: Hx Peritoneal Dialysis Psychiatric Medical History: Reports: Hx Bipolar Disorder, Hx Borderline Personality Disorder, Hx Depression, Hx Schizophrenia Past Surgical History: Reports: Hx Cholecystectomy, Hx Genitourinary Surgery - Suprapubic catheter - Immunizations Immunizations up to date: Yes Hx Diphtheria, Pertussis, Tetanus Vaccination: Yes Review of Systems - Review of Systems Notes: Constitutional: Negative for fever. HENT: Negative for sore throat. Eyes: Negative for visual changes. Cardiovascular: Negative for chest pain. Respiratory: Negative for shortness of breath. Gastrointestinal: Positive for flank pain, nausea, and vomiting. Negative for abdominal pain or diarrhea. Genitourinary: Positive for dark urine and hematuria. Negative for dysuria. Musculoskeletal: Negative for back pain. Skin: Negative for rash. Neurological: Negative for headaches, weakness or numbness. 10 point ROS negative except as marked above and in HPI. Physical Exam - Vital signs Vitals: Temp Pulse Resp BP Pulse Ox 97.1 F 97 16 134/81 H 100 09/16/19 07:42 09/16/19 07:42 09/16/19 07:42 09/16/19 07:42 09/16/19 07:42 - Notes Notes: GENERAL: Well-appearing, well-nourished and in no acute distress. HEAD: Atraumatic, normocephalic. EYES: Extraocular movements intact, sclera anicteric, conjunctiva are normal. NECK: Normal range of motion, supple without lymphadenopathy or JVD. LUNGS: Breath sounds clear to auscultation bilaterally and equal. No wheezes rales or rhonchi. HEART: Regular rate and rhythm without murmurs, rubs or gallops. ABDOMEN: Soft, very minimally tender diffusely. No guarding, no rebound. No masses appreciated. No CVA tenderness EXTREMITIES: Normal range of motion, no pitting or edema. No clubbing or cyanosis. NEUROLOGICAL: Cranial nerves II through XII grossly intact. Normal speech, normal gait. PSYCH: Normal mood, normal affect. SKIN: Warm, Dry, normal turgor, no rashes or lesions noted. Course - Re-evaluation Re-evalutation: 09/16/19 Presentation of an overall well-appearing patient in no acute distress with complaints of nausea, vomiting, right flank pain, and hematuria. Nontoxic in appearance. Patient has very mild abdominal tenderness on exam with no guarding/rebound and specifically no tenderness in the RLQ, LLQ, RUQ. No CVA tenderness. Pt is currently under treatment for UTI with Macrobid and Keflex secondary to chronic suprapubic catheter. Pt has a history of kidney stones. Overall well hydrated on exam. Concern for pyelonephritis vs nephrolithiasis. CBC, CMP, UA, and CT abdomen/pelvis without contrast ordered. Morphine and zofran ordered for pain control and nausea/vomiting. Low clinical suspicion for any acute life-threatening etiology based on exam and history including acute cholecystitis, SBO, appendicitis, nephrolithiasis, or pylonephritis. CT abdomen/pelvis shows no acute intraabdominal abnormality. Labwork unremarkable. Urine culture sent off, will await results prior to changing antibiotics. All results reviewed with pt. All questions/concerns addressed prior to discharge. Return precautions discussed. - Vital Signs Vital signs: Temp Pulse Resp BP Pulse Ox 98.0 F 82 18 125/84 97 09/16/19 09:57 09/16/19 09:57 09/16/19 09:57 09/16/19 09:57 09/16/19 09:57 - Laboratory Result Diagrams: 09/16/19 08:25 09/16/19 08:25 Laboratory results interpreted by me: 09/16/19 09/16/19 09/16/19 07:48 08:25 08:25 Hgb 12.9 L MCV 79 L MCH 25.9 L RDW 18.2 H Eos % (Auto) 6.9 H Baso % (Auto) 2.3 H Glucose 202 H Urine Protein 100 H Urine Glucose (UA) >=500 H Urine Blood SMALL H Ur Leukocyte Esterase LARGE H Discharge - Discharge Clinical Impression: Right flank pain, History of suprapubic catheter Nausea & vomiting Qualifiers: Vomiting type: unspecified Vomiting Intractability: unspecified Qualified Code(s): R11.2 - Nausea with vomiting, unspecified Condition: Stable Disposition: HOME, SELF-CARE Instructions: Abdominal Pain ([facility]) Additional Instructions: You have been seen in the Emergency Department (ED) for nausea/vomiting and flank pain. Your evaluation did not identify a clear cause of your symptoms but was generally reassuring. Your CT abdomen/pelvis was negative for kidney stone or any other abnormalities. Please finish all your doses of antibiotics. We have sent your urine for culture and we will call you if you require other antibiotics. Please follow up with your doctor as soon as possible regarding today's emergent visit and the symptoms that are bothering you. Return to the ED if your abdominal pain worsens or fails to improve, you develop bloody vomiting, bloody diarrhea, you are unable to tolerate fluids due to vomiting, fever greater than 101, or other symptoms that concern you. Prescriptions: Ondansetron HCl [Zofran 4 mg Tablet] 1 - 2 tab PO Q4H PRN #10 tablet PRN Reason: vomiting Forms: Return to Work Referrals: DANIAL LABOY MD [Primary Care Provider] - Follow up in 3-5 days
[2019-09-16 08:16] LABS: APPEARANCE,URINE CLOUDY; BILIRUBIN,URINE NEGATIVE (NEGATIVE); GLUCOSE, URINE >=500 mg/dL (NEGATIVE); KETONES,URINE NEGATIVE (NEGATIVE); LEUKOCYTE ESTERASE,URINE LARGE (NEGATIVE); NITRITE,URINE NEGATIVE (NEGATIVE); PROTEIN,URINE 100 mg/dL (NEGATIVE); UROBILINOGEN,URINE NEGATIVE mg/dL (<2.0)
[2019-09-16 08:18] LABS: COLOR,URINE YELLOW
--- NOTE | 2019-09-16 08:56 | RADIOLOGY REPORT (SQ) ---
EXAM DESCRIPTION: CT ABD/PELVIS NO ORAL OR IV COMPLETED DATE/TIME: 09/16/2019 8:41 am REASON FOR STUDY: right flank pain, hematuria, hx kidney stones/pyel COMPARISON: 01/25/2019 TECHNIQUE: CT scan of the abdomen and pelvis performed without intravenous or oral contrast. Images reviewed with lung, soft tissue, and bone windows. Reconstructed coronal and sagittal MPR images revi ewed. All images stored on PACS. All CT scanners at this facility use dose modulation, iterative reconstruction, and/or weight based d osing when appropriate to reduce radiation dose to as low as reasonably achievable (ALARA). [facility]: Dose Right [facility]: CareDose [facility]: Dose Right [facility]: Teradose 4D [facility]: [employer] RADIATION DOSE: CT Rad equipment meets quality standard of care and radiation dose reduction techniq ues were employed. CTDIvol: 14.6 mGy. DLP: 848 mGy-cm.mGy. LIMITATIONS: None. FINDINGS: LOWER CHEST: No significant findings. No nodules or infiltrates. NON-CONTRASTED LIVER, SPLEEN, ADRENALS: Evaluation limited by lack of IV contrast. No identified sign ificant masses. PANCREAS: No masses. No peripancreatic inflammatory changes. GALLBLADDER: Surgically absent. RIGHT KIDNEY AND URETER: No suspicious masses. Assessment limited by lack of IV contrast. Punctate nonobstructing lower pole stone versus calcification. No hydronephrosis or hydroureter. LEFT KIDNEY AND URETER: No suspicious masses. Assessment limited by lack of IV contrast. No signifi cant calcifications. No hydronephrosis or hydroureter. AORTA AND RETROPERITONEUM: No aneurysm. No retroperitoneal masses or adenopathy. 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 Mildly dilated loop at the anastomosis, likely postsurgical. No evidence of intestinal obstruction. No focal bowel wall thickening. APPENDIX: Normal. PELVIS, BLADDER, AND ABDOMINAL WALL:Decompressed urinary bladder with Vo catheter. No pelvic free fluid or mass. BONES: No acute bony abnormality. No discrete lytic or blastic osseous lesions. Mild lower lumbar f acet arthropathy. OTHER: No other significant finding. IMPRESSION: No evidence of acute intra-abdominal/pelvic process. Postsurgical changes from prior gastric bypass. Additional chronic findings as above. COMMENT: Quality ID # [id number]: Final reports with documentation of one or more dose reduction techniques (e.g., Automated exposure control, adjustment of the mA and/or kV according to patient size, use of iterative reconstruction technique) TECHNICAL DOCUMENTATION: JOB ID: [id number] [employer]- All Rights Reserved Reading location - IP/workstation name: [email or web address]
[2019-09-16 09:00] LABS: ABSOLUTE BASOPHILS # (AUTO) 0.1 10^3/uL (0.0-0.2); ABSOLUTE EOSINOPHILS # (AUTO) 0.4 10^3/uL (0.0-0.6); ABSOLUTE MONOCYTES (AUTO) 0.4 10^3/uL (0.1-1.4); ABSOLUTE NEUT (AUTO) 3.6 10^3/uL (1.7-8.2); BASOPHILS % (AUTO) 2.3 % (0-2); EOSINOPHILS % (AUTO) 6.9 % (0-6); HEMATOCRIT 39.1 % (37.9-51.0); HEMOGLOBIN 12.9 g/dL (13.5-17.0); LYMPHOCYTES % (AUTO) 17.5 % (13-45); MEAN CORPUSCULAR HEMOGLOBIN 25.9 pg (27.0-33.4); MEAN CORPUSCULAR VOLUME 79 fl (80-97); MONOCYTES % (AUTO) 7.7 % (3-13); PLATELET COUNT 229 10^3/uL (150-450); RED BLOOD COUNT 4.98 10^6/uL (4.35-5.55); RED CELL DISTRIBUTION WIDTH 18.2 % (11.5-14.0); SEGMENTED NEUTROPHILS % (AUTO) 65.6 % (42-78); TOTAL CELLS COUNTED % (AUTO) 100 %; WHITE BLOOD COUNT 5.5 10^3/uL (4.0-10.5)
[2019-09-16 09:24] LABS: ALBUMIN 3.8 g/dL (3.5-5.0); ALKALINE PHOSPHATASE 94 U/L (38-126); ANION GAP 9 (5-19); ASPARTATE AMINO TRANSFERASE 21 U/L (17-59); BILIRUBIN,DIRECT 0.1 mg/dL (0.0-0.4); BILIRUBIN,TOTAL 0.3 mg/dL (0.2-1.3); BLOOD UREA NITROGEN 10 mg/dL (7-20); CALCIUM 9.2 mg/dL (8.4-10.2); CARBON DIOXIDE 27 mmol/L (22-30); CHLORIDE 103 mmol/L (98-107); GLUCOSE 202 mg/dL (75-110); TOTAL PROTEIN 6.3 g/dL (6.3-8.2)
[2019-09-16 10:13] VITALS: BP 125/84
== END 2019-09-16 09:57 | disposition home or self-care (01) ==
LOC: ER 07:39
DX: R11.2 Nausea with vomiting, unspecified (principal); R10.9 Unspecified abdominal pain; R39.198 Other difficulties with micturition; R31.9 Hematuria, unspecified; Z96.0 Presence of urogenital implants
CPT/HCPCS: 36415; 87086; 85025; 87088; 80053; 81001; 74176; J2270; J2405; 87186; 96374; 96375; 99284

== ENCOUNTER 2019-09-25 10:37 | Emergency (ER) | payer MEDICARE ==
[2019-09-25 10:54] VITALS: BP 137/87
[2019-09-25] MEDS ORDERED: ONDANSETRON 4 MG TAB.RAPDIS PO ONE (10:59)
[2019-09-25] MEDS ORDERED: KETOROLAC TROMETHAMINE INJ/PF 30 MG/1 ML SDV IM ONE (10:59)
--- NOTE | 2019-09-25 11:01 | ER Document Report ---
ED Medical Screen (RME) - General Chief Complaint: Urinary Problem Stated Complaint: URINARY PROBLEMS Time Seen by Provider: 09/25/19 10:50 Primary Care Provider: DANIAL LABOY MD [Primary Care Provider] - Follow up as needed Notes: 48-year-old male with history of chronic UTIs and indwelling suprapubic catheter presents the emergency department with concern for a urinary tract infection. Patient states that he noticed a little bit of purulent discharge around the insertion site and has been having some right flank pain. States he is also having "hot and cold" and has had some nausea. Of note, urine culture from previous visit did show Pseudomonas and it appears that it was not adequately covered with the antimicrobials prescribed. Exam: Well-appearing in no acute distress, very mild erythema around the suprapubic catheter site without warmth, mild right CVAT I have greeted and performed a rapid initial assessment of this patient. A comprehensive ED assessment and evaluation of the patient, analysis of test results and completion of medical decision making process will be conducted by an additional ED providers. TRAVEL OUTSIDE OF THE [place] IN LAST 30 DAYS: No - Related Data Allergies/Adverse Reactions: No Known Allergies Allergy (Verified 09/09/19 12:30) Past Medical History - Social History Frequency of alcohol use: None Drug Abuse: None Family history: Reviewed & Not Pertinent Renal/ Medical History: Reports: Hx Kidney Stones. Denies: Hx Peritoneal Dialysis Psychiatric Medical History: Reports: Hx Bipolar Disorder, Hx Borderline Personality Disorder, Hx Depression, Hx Schizophrenia Past Surgical History: Reports: Hx Cholecystectomy, Hx Genitourinary Surgery - Suprapubic catheter - Immunizations Immunizations up to date: Yes Hx Diphtheria, Pertussis, Tetanus Vaccination: Yes Physical Exam - Vital signs Vitals: Temp Pulse Resp BP Pulse Ox 98.1 F 84 18 137/87 H 100 09/25/19 10:50 09/25/19 10:50 09/25/19 10:50 09/25/19 10:50 09/25/19 10:50 Course - Vital Signs Vital signs: Temp Pulse Resp BP Pulse Ox 98.1 F 84 18 137/87 H 100 09/25/19 10:50 09/25/19 10:50 09/25/19 10:50 09/25/19 10:50 09/25/19 10:50 Doctor's Discharge - Discharge Referrals: DANIAL LABOY MD [Primary Care Provider] - Follow up as needed
[2019-09-25 11:40] LABS: ABSOLUTE BASOPHILS # (AUTO) 0.1 10^3/uL (0.0-0.2); ABSOLUTE EOSINOPHILS # (AUTO) 0.5 10^3/uL (0.0-0.6); ABSOLUTE LYMPHOCYTES (AUTO) 1.3 10^3/uL (0.5-4.7); ABSOLUTE MONOCYTES (AUTO) 0.8 10^3/uL (0.1-1.4); ABSOLUTE NEUT (AUTO) 7.2 10^3/uL (1.7-8.2); BASOPHILS % (AUTO) 1.2 % (0-2); EOSINOPHILS % (AUTO) 4.9 % (0-6); HEMATOCRIT 40.9 % (37.9-51.0); HEMOGLOBIN 13.6 g/dL (13.5-17.0); MEAN CORPUSCULAR HEMOGLOBIN 26.2 pg (27.0-33.4); MEAN CORPUSCULAR HGB CONC 33.1 g/dL (32.0-36.0); MEAN CORPUSCULAR VOLUME 79 fl (80-97); MONOCYTES % (AUTO) 7.6 % (3-13); PLATELET COUNT 263 10^3/uL (150-450); RED BLOOD COUNT 5.17 10^6/uL (4.35-5.55); RED CELL DISTRIBUTION WIDTH 17.9 % (11.5-14.0); SEGMENTED NEUTROPHILS % (AUTO) 73.3 % (42-78); TOTAL CELLS COUNTED % (AUTO) 100 %; WHITE BLOOD COUNT 9.9 10^3/uL (4.0-10.5)
[2019-09-25 11:44] LABS: AMORPHOUS SEDIMENT,URINE TRACE /HPF; APPEARANCE,URINE CLOUDY; BILIRUBIN,URINE NEGATIVE (NEGATIVE); CALCIUM OXALATE CRYSTALS,URINE FEW /HPF; COLOR,URINE YELLOW; GLUCOSE, URINE >=500 mg/dL (NEGATIVE); KETONES,URINE NEGATIVE (NEGATIVE); LEUKOCYTE ESTERASE,URINE LARGE (NEGATIVE); NITRITE,URINE POSITIVE (NEGATIVE); PROTEIN,URINE 100 mg/dL (NEGATIVE); URINE SPECIFIC GRAVITY 1.024; UROBILINOGEN,URINE NEGATIVE mg/dL (<2.0)
[2019-09-25] MEDS ORDERED: HYDROCODONE/ACETAMINOPHEN 5-325 MG TABLET PO ONE (12:27)
--- NOTE | 2019-09-25 13:59 | ER Document Report ---
HPI - HPI Time Seen by Provider: 09/25/19 10:50 Pain Level: 4 Notes: Patient is a 48-year-old male who presents with chronic UTI and indwelling suprapubic catheter who presents complaining of noticing purulent material within his urine, darker colored urine, and foul smell. He did finish Keflex and Macrobid, but appears as though the Pseudomonas may have gone untreated after the urine culture was obtained. He is otherwise able to eat and drink without difficulty. He is having normal bowel movements. No other concerns or complaints. Denies drug allergies. Denies any headache, fever, neck pain, URI, sore throat, chest pain, palpitations, syncope, cough, shortness of breath, wheeze, dyspnea, abdominal pain, nausea/vomiting/diarrhea, or rash. - ROS Systems Reviewed and Negative: Yes All other systems reviewed and negative - REPRODUCTIVE Reproductive: DENIES: : Past Medical History - Social History Smoking Status: Never Smoker Frequency of alcohol use: None Drug Abuse: None Family History: None, Reviewed & Not Pertinent, Hypertension Patient has suicidal ideation: No Patient has homicidal ideation: No Renal/ Medical History: Reports: Hx Kidney Stones. Denies: Hx Peritoneal Dialysis Psychiatric Medical History: Reports: Hx Bipolar Disorder, Hx Borderline Personality Disorder, Hx Depression, Hx Schizophrenia Past Surgical History: Reports: Hx Cholecystectomy, Hx Genitourinary Surgery - Suprapubic catheter - Immunizations Immunizations up to date: Yes Hx Diphtheria, Pertussis, Tetanus Vaccination: Yes Vertical Provider Document - CONSTITUTIONAL Agree With Documented VS: Yes Notes: PHYSICAL EXAMINATION: GENERAL: Well-appearing, well-nourished and in no acute distress. LUNGS: Breath sounds clear to auscultation bilaterally and equal. No wheezes rales or rhonchi. HEART: Regular rate and rhythm without murmurs, rubs, gallops. ABDOMEN: Soft, nontender, nondistended abdomen. No guarding, no rebound. Normal bowel sounds present. No CVA tenderness bilaterally. Suprapubic cath in place w/o any erythema or purulence noted. Musculoskeletal: FROM to passive/active. Strength 5+/5. Extremities: No cyanosis, clubbing, or edema b/l. Peripheral pulses 2+. Capillary refill less than 3 seconds. NEUROLOGICAL: Cranial nerves grossly intact. Normal speech, normal gait. Normal sensory, motor exams PSYCH: Normal mood, normal affect. SKIN: Warm, Dry, normal turgor, no rashes or lesions noted. - INFECTION CONTROL TRAVEL OUTSIDE OF THE [place] IN LAST 30 DAYS: No Course - Re-evaluation Re-evalutation: 09/25/19 13:59 Patient is a 48-year-old male with a history of recurrent UTI who presents with an acute UTI. Vitals are acceptable without significant tachycardia, tachypnea, or hypoxia. PE is otherwise unremarkable. Patient is nontoxic-appearing and is tolerating p.o. without difficulty. Abdomen is soft and nontender. Labs otherwise unremarkable aside from urinalysis. Urine culture is pending. No further work-up warranted. Low suspicion/risk for acute appendicitis, bowel obstruction, acute cholecystitis, perforated diverticulitis, incarcerated hernia, pancreatitis, perforated ulcer, peritonitis, sepsis, testicular torsion, or other systemic emergent condition at this time. Patient is aware that his condition can change from initial presentation and he needs to monitor symptoms closely and seek medical attention if any acute changes. Due to urine culture results previously, I will send him on cipro and extend his macrobid. Conservative measures otherwise for symptoms. Recheck with PCM in 2-3 days. Consider consult with a urologist. Return to the ED with any worsening/concerning symptoms otherwise as reviewed in discharge. Patient is in agreement. - Vital Signs Vital signs: Temp Pulse Resp BP Pulse Ox 98.1 F 84 18 137/87 H 100 09/25/19 10:50 09/25/19 10:50 09/25/19 10:50 09/25/19 10:50 09/25/19 10:50 - Laboratory Result Diagrams: 09/25/19 11:05 Laboratory results interpreted by me: 09/25/19 09/25/19 11:05 11:18 MCV 79 L MCH 26.2 L RDW 17.9 H Urine Protein 100 H Urine Glucose (UA) >=500 H Urine Nitrite POSITIVE H Ur Leukocyte Esterase LARGE H Discharge - Discharge Clinical Impression: Complicated UTI (urinary tract infection) Condition: Stable Disposition: HOME, SELF-CARE Instructions: Urinary Tract Infection ([facility]), Nitrofurantoin ([facility]), Ciprofloxac in ([facility]) Additional Instructions: Push fluids (i.e. water) Proper hygenic technique Keep the skin clean Tylenol/ibuprofen as needed Take medications as directed F/u with your PCM in 3-5 days for a recheck Schedule an appointment with your urologist* Return to the ED with any worsening symptoms and/or development of fever, headache, chest pain, palpitations, syncope, shortness of breath, trouble breathing, abdominal pain, n/v/d, blood in stool/urine, loss of control of bowel/bladder, urinary retention, or other worsening symptoms that are concerning to you. Prescriptions: Ciprofloxacin HCl [Cipro 500 mg Tablet] 500 mg PO BID #14 tablet Nitrofurantoin/Nitrofuran Mac [Macrobid 100 mg Capsule] 1 tab PO BID #14 capsule Forms: Elevated Blood Pressure Referrals: DANIAL LABOY MD [Primary Care Provider] - Follow up as needed [facility] [Provider Group] - Follow up as needed
== END 2019-09-25 14:12 | disposition home or self-care (01) ==
LOC: ER 10:37
DX: N39.0 Urinary tract infection, site not specified (principal)
CPT/HCPCS: 36415; 87040; 85025; 81001; A9270 ×2; J1885; 87086; 87088; S0119

== ENCOUNTER 2019-10-06 09:49 | Emergency (ER) | payer MEDICARE ==
[2019-10-06 10:43] LABS: APPEARANCE,URINE CLOUDY; BILIRUBIN,URINE NEGATIVE (NEGATIVE); COLOR,URINE YELLOW; GLUCOSE, URINE NEGATIVE (NEGATIVE); KETONES,URINE NEGATIVE (NEGATIVE); PROTEIN,URINE 100 mg/dL (NEGATIVE); URINE SPECIFIC GRAVITY 1.015; UROBILINOGEN,URINE NEGATIVE mg/dL (<2.0)
[2019-10-06] MEDS ORDERED: LIDOCAINE 2% URO-JET 5 ML KIT MM ONE (12:44)
--- NOTE | 2019-10-06 13:24 | ER Document Report ---
Entered by PRANAV ARRIETA SCRIBE 10/06/19 1243 Acting as scribe for:VALORIE GARIBAY MD ED GI/ - General Chief Complaint: Urinary Problem Stated Complaint: CATHETER ISSUES Time Seen by Provider: 10/06/19 12:22 Primary Care Provider: DANIAL HOLDER MD [Primary Care Provider] - Follow up as needed Mode of Arrival: Ambulatory Information source: Patient Notes: This 48-year-old male patient presents to the emergency department today with complaints of a urinary tract infection. Patient states that "he was supposed to have a suprapubic catheter changed 1 month ago". Patient states that he has an 18 Israeli with [address] now and that is the catheter he always gets. Patient has chronic urinary tract infections, last treated 11 days ago. He would like his catheter changed. Patient was seen in the emergency room on 09/25/2019, the urine culture grew Proteus, Providecia, and Alcaligenes species. They were all sensitive to Cipro, and he was placed on a 7-day course of Cipro. Patient's past history is significant for transverse myelitis causing him to have chronic constipation and a neurogenic bladder along with extremity weakness. TRAVEL OUTSIDE OF THE [place] IN LAST 30 DAYS: No - Related Data Allergies/Adverse Reactions: No Known Allergies Allergy (Verified 09/09/19 12:30) Past Medical History - General Information source: Patient - Social History Smoking Status: Former Smoker Cigarette use (# per day): No Chew tobacco use (# tins/day): No Smoking Education Provided: No Frequency of alcohol use: None Drug Abuse: None Lives with: Family Family History: None, Reviewed & Not Pertinent, Hypertension Patient has suicidal ideation: No Patient has homicidal ideation: No Renal/ Medical History: Reports: Hx Kidney Stones Musculoskeletal Medical History: Reports Hx Arthritis Psychiatric Medical History: Reports: Hx Bipolar Disorder, Hx Borderline Personality Disorder, Hx Depression, Hx Post Traumatic Stress Disorder, Hx Schizophrenia Traumatic Medical History: Reports: Hx Fractures - left tibia Past Surgical History: Reports: Hx Cholecystectomy, Hx Genitourinary Surgery - Suprapubic catheter - Immunizations Immunizations up to date: Yes Hx Diphtheria, Pertussis, Tetanus Vaccination: Yes Review of Systems - Review of Systems Constitutional: No symptoms reported EENT: No symptoms reported Cardiovascular: No symptoms reported Respiratory: No symptoms reported Gastrointestinal: No symptoms reported Genitourinary: See HPI, Other - UTI Male Genitourinary: See HPI Musculoskeletal: Other - Leg muscle weakness Skin: No symptoms reported Hematologic/Lymphatic: No symptoms reported Neurological/Psychological: Depression, Weakness -: Yes All other systems reviewed and negative Physical Exam - Vital signs Vitals: Temp Pulse Resp BP Pulse Ox 97.6 F 87 18 136/87 H 98 10/06/19 09:57 10/06/19 09:57 10/06/19 09:57 10/06/19 09:57 10/06/19 09:57 - Notes Notes: Physical Exam: General: Alert, appears well. HEENT: Normocephalic. Atraumatic. PERRL. Extraocular movements intact. Oropharynx clear. Neck: Supple. Non-tender. Respiratory: No respiratory distress. Clear and equal breath sounds bilaterally. Cardiovascular: Regular rate and rhythm. Abdominal: Suprapubic catheter connected to a leg bag. Back: No gross abnormalities. Extremities: Moves all four extremities. Some lower extremity weakness. Upper extremities: Normal inspection. Normal ROM. Lower extremities: Normal inspection. No edema. Normal ROM. Neurological: Normal cognition. AAOx4. Normal speech. Psychological: Normal affect. Normal Mood. Skin: Warm. Dry. Normal color. Course - Re-evaluation Re-evalutation: 10/06/19 14:20 PROCEDURE: Change suprapubic catheter. The suprapubic catheter in place had the balloon deflated and was removed. The ostomy site was prepped with Betadine swabs. Urojet lidocaine was used to inject through the ostomy for lubrication and analgesia. Using sterile technique, an 18 Israeli 10 mL balloon Vo catheter was placed through the suprapubic ostomy and 6 mL's of sterile saline was used to fill the balloon. The catheter was attached to a leg bag. 10/06/19 14:22 The urine that was obtained from the dirty catheter had too numerous to count WBCs. A culture will be obtained, will withhold antibiotics at this time and see what the culture results are. - Vital Signs Vital signs: Temp Pulse Resp BP Pulse Ox 97.6 F 87 18 136/87 H 98 10/06/19 09:57 10/06/19 09:57 10/06/19 09:57 10/06/19 09:57 10/06/19 09:57 - Laboratory Laboratory results interpreted by me: 10/06/19 10:25 Urine Protein 100 H Urine Blood SMALL H Urine Nitrite (Reflex) POSITIVE H Leukocyte Esterase Rfl LARGE H Discharge - Discharge Clinical Impression: Encounter for suprapubic catheter care, Encounter for replacement of urinary catheter Condition: Stable Disposition: HOME, SELF-CARE Additional Instructions: The urine obtained from your old catheter appears infected, but that may be due to the dirty catheter. Be sure to drink plenty of fluids to help flush out your bladder now that you have a clean catheter. Follow-up with Dr. Holder to check on your urine culture results and decide if another course of treatment would be appropriate. RETURN TO THE EMERGENCY ROOM IF ANY NEW OR WORSENING SYMPTOMS. Referrals: DANIAL HOLDER MD [Primary Care Provider] - Follow up as needed Scribe Attestation: 10/06/19 14:24 I personally performed the services described in the documentation, reviewed and edited the documentation which was dictated to the scribe in my presence, and it accurately records my words and actions. I personally performed the services described in the documentation, reviewed and edited the documentation which was dictated to the scribe in my presence, and it accurately records my words and actions.
[2019-10-06] MEDS ORDERED: HYDROMORPHONE HCL INJ/PF 2 MG/ML AMPULE IM ONE (13:25)
[2019-10-06] MEDS ORDERED: ONDANSETRON 4 MG TAB.RAPDIS PO ONE (13:25)
[2019-10-06 14:56] VITALS: BP 133/86
== END 2019-10-06 14:58 | disposition home or self-care (01) ==
LOC: ER 09:49
DX: Z46.6 Encounter for fitting and adjustment of urinary device (principal); N39.0 Urinary tract infection, site not specified; M62.81 Muscle weakness (generalized); F32.9 Major depressive disorder, single episode, unspecified; Z87.891 Personal history of nicotine dependence
CPT/HCPCS: 99283; 51702; 96374; 96375; 87086; 87088; 81001; A9270 ×2; J1170; 87186; J3490; S0119

== ENCOUNTER 2019-10-13 07:57 | Inpatient (IN) | payer MEDICARE ==
[~2019-10-13 07:57] MED LIST: BUPIVACAINE INJ/PF LIPOSOME/PF 266 MG/20 ML SDV INJ PRN; IBUPROFEN 800 MG in NORMAL SALINE 250 ML IV PRN; LACTATED RINGERS 1000 ML IV PRN; OXYCODONE HCL SR 10 MG TABLET PO PRN; PANTOPRAZOLE SODIUM 20 MG TABLET.DR PO PRN; VANCOMYCIN HCL 1,000 MG in DEXTROSE 5%-WATER 250 ML IV PRN
[2019-10-13] MEDS ORDERED: CEFAZOLIN INJ 1 GM VIAL ONE (08:12)
[2019-10-13] MEDS ORDERED: PANTOPRAZOLE SODIUM 20 MG TABLET.DR PO ONE (08:12)
[2019-10-13] MEDS ORDERED: OXYCODONE HCL SR 10 MG TABLET PO ONE (08:12)
[2019-10-13] MEDS ORDERED: MIDAZOLAM 2 MG/2 ML INJ ONE (09:12)
[2019-10-13] MEDS ORDERED: FENTANYL CITRATE INJ/PF 100 MCG/2 ML AMPUL ONE (09:12)
[2019-10-13] MEDS ORDERED: PROPOFOL INJ 200 MG/20 ML VIAL IV ONE ×2 (09:12→12:33)
[2019-10-13] MEDS ORDERED: TRANEXAMIC ACID INJ/PF 1,000 MG/10 ML SDV ONE (09:18)
[2019-10-13] MEDS ORDERED: DEXAMETHASONE SOD PHOSPHATE INJ 4 MG/1 ML VIAL ONE (09:18)
[2019-10-13] MEDS ORDERED: ONDANSETRON HCL INJ/PF 4 MG/2 ML SDV ONE (09:18)
[2019-10-13] MEDS ORDERED: VANCOMYCIN HCL INJ 1000 MG VIAL ONE (09:41)
[2019-10-13] MEDS ORDERED: OXYCODONE-ACETAMINOPHEN 5-325 MG TABLET PO PRN ×2 (10:40)
[2019-10-13] MEDS ORDERED: MORPHINE SULFATE 10 MG/ML INJ IV PRN (10:40)
[2019-10-13] MEDS ORDERED: DIPHENHYDRAMINE HCL 50 MG/ML VIAL IV PRN ×2 (10:40→11:36)
[2019-10-13] MEDS ORDERED: ONDANSETRON HCL INJ/PF 4 MG/2 ML SDV IV PRN ×2 (10:40→11:36)
[2019-10-13] MEDS ORDERED: FENTANYL CITRATE INJ/PF 100 MCG/2 ML AMPUL IV PRN ×3 (10:40)
[2019-10-13] MEDS ORDERED: MEPERIDINE HCL/PF INJ 25 MG/1 ML DISP.SYRIN IV PRN (10:40)
[2019-10-13] MEDS ORDERED: MAG HYDROX/AL HYDROX/SIMETH SUSP 30 ML UDCUP PO PRN (11:36)
[2019-10-13] MEDS ORDERED: RINGERS SOLUTION,LACTATED 1,000 ML IV PRN (11:36)
[2019-10-13] MEDS ORDERED: ZOLPIDEM TARTRATE 5 MG TABLET PO PRN (11:36)
[2019-10-13] MEDS ORDERED: ONDANSETRON 4 MG TAB.RAPDIS PO PRN (11:36)
--- NOTE | 2019-10-13 11:54 | Operative Report ---
Operative Report DATE OF SURGERY: 10/13/19 PREOPERATIVE DIAGNOSIS: Right knee arthritis OPERATION: Right knee arthroplasty SURGEON: LUKE PEREZ ANESTHESIA: Spinal TISSUE REMOVED OR ALTERED: Bone to pathology ESTIMATED BLOOD LOSS: 75 PROCEDURE: Implants used: Femur: Size 6 CR [place] triathlon femur Tibia: 7 tibia Tibial liner: 9 mm CS insert Patella: 38 mm oval patella Procedure with the patient supine on the operating table the right the limb is prepped and draped in a sterile fashion. The limb was elevated for exsanguination and the tourniquet inflated to 280 torr. A standard midline median parapatellar approach the knee is taken. Access is gained to the femoral canal through the intercondylar notch. Intramedullary alignment instrumentation used to resect 10 mm of distal femur in 5 of valgus. Sizing guide indicated a size 6 femur. Appropriate cutting jig is then used to fashion anterior posterior and chamfer cuts. A trial reduction femurs performed and this is judged to be adequate. Attention was next turned to the tibia. Using an extra medullary alignment system 11 millimeters was resected off the lateral tibial plateau. This is sized to a size 7 tibia. A trial reduction was now performed with a 6 femur and a 7 tibia using a 9 millimeters spacer. It is full extension and central patellofemoral tracking. The articular surface the patella was next resected using an oscillating saw. All trial implants were removed. Polymethylmethacrylate is mixed and used to cement the above implants in place. On adequate curing the cement excess cement was removed the tourniquet was deflated hemostasis obtained the wound is then closed in layers using interrupted Vicryl followed by naresh. A sterile compressive dressing was applied and the patient returned to recovery room in satisfactory condition.
[2019-10-13] MEDS: OXYCODONE HCL IR 5 MG TABLET PO PRN (14:52)
[2019-10-13] MEDS: MORPHINE SULFATE 10 MG/ML INJ IV PRN ×5 (14:53→22:25)
--- NOTE | 2019-10-13 15:02 | RADIOLOGY REPORT (SQ) ---
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 NUMBER OF VIEWS: Two view(s). TECHNIQUE: Digital radiographic images of the right knee post-procedure. LIMITATIONS: None. FINDINGS: BONES: No worrisome or unexpected findings post-procedure. DEVICE: Total knee arthroplasty SOFT TISSUES: No worrisome findings. Expected postoperative soft tissue changes. IMPRESSION: SATISFACTORY POSTOPERATIVE RIGHT KNEE. TECHNICAL DOCUMENTATION: JOB ID: [id number] [employer]- All Rights Reserved Reading location - IP/workstation name: [email or web address]
[2019-10-13] MEDS: IBUPROFEN 800 MG in NORMAL SALINE 250 ML IV SCH (18:38)
[2019-10-13] MEDS: SENNOSIDES/DOCUSATE 8.6-50 MG 1 EACH TABLET PO SCH (18:39)
[2019-10-13] MEDS: PREGABALIN 75 MG CAPSULE PO SCH (18:39)
[2019-10-13] MEDS ORDERED: OLANZAPINE 10 MG SL SCH (22:00)
[2019-10-13] MEDS: OLANZAPINE 5 MG TAB.RAPDIS PO SCH (22:23)
[2019-10-13] MEDS: OXYCODONE HCL SR 10 MG TABLET PO SCH (22:25)
[2019-10-13] MEDS ORDERED: VANCOMYCIN HCL 1,000 MG in DEXTROSE 5%-WATER 250 ML IV ONE (23:30)
[2019-10-14] MEDS: IBUPROFEN 800 MG in NORMAL SALINE 250 ML IV SCH ×3 (01:18→17:11)
[2019-10-14] MEDS: MORPHINE SULFATE 10 MG/ML INJ IV PRN ×5 (01:18→21:38)
[2019-10-14] MEDS: PANTOPRAZOLE SODIUM 40 MG TABLET.DR PO SCH (05:20)
[2019-10-14 06:08] LABS: HEMATOCRIT 30.2 % (37.9-51.0); HEMOGLOBIN 10.2 g/dL (13.5-17.0); MEAN CORPUSCULAR HEMOGLOBIN 26.3 pg (27.0-33.4); MEAN CORPUSCULAR HGB CONC 33.6 g/dL (32.0-36.0); MEAN CORPUSCULAR VOLUME 78 fl (80-97); PLATELET COUNT 216 10^3/uL (150-450); RED BLOOD COUNT 3.86 10^6/uL (4.35-5.55); WHITE BLOOD COUNT 9.6 10^3/uL (4.0-10.5)
[2019-10-14 06:23] LABS: ANION GAP 6 (5-19); BLOOD UREA NITROGEN 10 mg/dL (7-20); CALCIUM 8.7 mg/dL (8.4-10.2); CARBON DIOXIDE 28 mmol/L (22-30); CHLORIDE 103 mmol/L (98-107); GLUCOSE 198 mg/dL (75-110); POTASSIUM 4.1 mmol/L (3.6-5.0)
--- NOTE | 2019-10-14 07:14 | PDOC PROGRESS REPORT ---
Subjective Progress Note for:: 10/14/19 Reason For Visit: M17.11 UNILATERAL PRIMARY OSTEOARTHRITIS, RIGHT KN 49-year-old white male status post right knee arthroplasty, postoperative day #1. Uneventful postoperative course. Is well controlled. Progress with physical therapy. Physical Exam Vital Signs: Temp Pulse Resp BP Pulse Ox 36.7 C 78 18 122/58 L 98 10/13/19 19:57 10/14/19 01:00 10/13/19 17:40 10/14/19 01:00 10/14/19 01:00 Intake & Output 10/13/19 10/14/19 10/15/19 06:59 06:59 06:59 Intake Total 2956 Output Total 1680 Balance 1276 Physical Exam: Middle-aged white male sitting up in bed. Patient is alert, oriented, and appropriate. General appearance: PRESENT: no acute distress, mild distress Head exam: PRESENT: normocephalic Respiratory exam: PRESENT: unlabored Cardiovascular exam: PRESENT: RRR Pulses: PRESENT: +1 pedal pulses bilateral Vascular exam: PRESENT: normal capillary refill GI/Abdominal exam: PRESENT: soft Rectal exam: PRESENT: deferred Extremities exam: PRESENT: other - Right lower extremity dressing is clean dry and intact. Distal neurovascular examination is intact. Results Laboratory Results: 10/14/19 05:09 10/14/19 05:09 10/14/19 10/14/19 05:09 05:09 WBC 9.6 RBC 3.86 L Hgb 10.2 L Hct 30.2 L MCV 78 L MCH 26.3 L MCHC 33.6 RDW 18.0 H Plt Count 216 Sodium 136.7 L Potassium 4.1 Chloride 103 Carbon Dioxide 28 Anion Gap 6 BUN 10 Creatinine 0.73 Est GFR ( Amer) > 60 Glucose 198 H Calcium 8.7 Impressions: Knee X-Ray 10/13/19 11:38 IMPRESSION: SATISFACTORY POSTOPERATIVE RIGHT KNEE. Status: Imported from PACS Assessment & Plan - Diagnosis (1) Arthritis of right knee Is this a current diagnosis for this admission?: Yes Plan: Mobilized with physical therapy and weightbearing as tolerated basis. Anticipate the need for assisted facility placement. - Time Time Spent with patient: 15-24 minutes Anticipated discharge: SNF Within: when bed available
[2019-10-14] MEDS: PRENATAL VITAMIN W DHA CAPSULE PO SCH (09:24)
[2019-10-14] MEDS: BACLOFEN 10 MG TABLET PO SCH (09:24)
[2019-10-14] MEDS: PREGABALIN 75 MG CAPSULE PO SCH ×2 (09:25→17:10)
[2019-10-14] MEDS: SENNOSIDES/DOCUSATE 8.6-50 MG 1 EACH TABLET PO SCH ×2 (09:25→17:10)
[2019-10-14] MEDS: OXYCODONE HCL SR 10 MG TABLET PO SCH ×2 (09:25→21:37)
[2019-10-14] MEDS ORDERED: LAMOTRIGINE 50 MG PO SCH (10:00)
[2019-10-14] MEDS: LAMOTRIGINE 25 MG TAB.CHEW PO SCH (11:49)
[2019-10-14] MEDS: OXYCODONE HCL IR 5 MG TABLET PO PRN ×2 (13:24→19:49)
[2019-10-14] MEDS: ACETAMINOPHEN 325 MG TABLET PO PRN (17:10)
[2019-10-14] MEDS: OLANZAPINE 5 MG TAB.RAPDIS PO SCH (21:37)
[2019-10-15] MEDS: IBUPROFEN 800 MG in NORMAL SALINE 250 ML IV SCH ×3 (00:59→17:25)
[2019-10-15] MEDS: OXYCODONE HCL IR 5 MG TABLET PO PRN ×3 (03:35→21:29)
[2019-10-15 05:34] LABS: HEMATOCRIT 26.2 % (37.9-51.0); HEMOGLOBIN 8.7 g/dL (13.5-17.0); MEAN CORPUSCULAR HEMOGLOBIN 26.5 pg (27.0-33.4); MEAN CORPUSCULAR HGB CONC 33.4 g/dL (32.0-36.0); MEAN CORPUSCULAR VOLUME 79 fl (80-97); PLATELET COUNT 161 10^3/uL (150-450); RED CELL DISTRIBUTION WIDTH 17.7 % (11.5-14.0); WHITE BLOOD COUNT 9.8 10^3/uL (4.0-10.5)
[2019-10-15] MEDS: PANTOPRAZOLE SODIUM 40 MG TABLET.DR PO SCH (06:42)
[2019-10-15] MEDS: MORPHINE SULFATE 10 MG/ML INJ IV PRN ×3 (07:32→17:56)
[2019-10-15] MEDS: PRENATAL VITAMIN W DHA CAPSULE PO SCH (09:09)
[2019-10-15] MEDS: PREGABALIN 75 MG CAPSULE PO SCH ×2 (09:09→17:25)
[2019-10-15] MEDS: SENNOSIDES/DOCUSATE 8.6-50 MG 1 EACH TABLET PO SCH ×2 (09:09→17:25)
[2019-10-15] MEDS: BACLOFEN 10 MG TABLET PO SCH (09:09)
[2019-10-15] MEDS: OXYCODONE HCL SR 10 MG TABLET PO SCH (09:10)
[2019-10-15] MEDS: LAMOTRIGINE 25 MG TAB.CHEW PO SCH (09:11)
[2019-10-15] MEDS: ACETAMINOPHEN 325 MG TABLET PO PRN (17:56)
[2019-10-15] MEDS: OLANZAPINE 5 MG TAB.RAPDIS PO SCH (21:29)
[2019-10-16] MEDS: IBUPROFEN 800 MG in NORMAL SALINE 250 ML IV SCH ×2 (02:59→10:47)
[2019-10-16] MEDS: OXYCODONE HCL IR 5 MG TABLET PO PRN ×3 (02:59→17:31)
[2019-10-16 06:23] LABS: HEMATOCRIT 25.2 % (37.9-51.0); HEMOGLOBIN 8.3 g/dL (13.5-17.0); MEAN CORPUSCULAR HEMOGLOBIN 26.2 pg (27.0-33.4); MEAN CORPUSCULAR HGB CONC 32.8 g/dL (32.0-36.0); MEAN CORPUSCULAR VOLUME 80 fl (80-97); PLATELET COUNT 175 10^3/uL (150-450); RED BLOOD COUNT 3.16 10^6/uL (4.35-5.55); RED CELL DISTRIBUTION WIDTH 18.7 % (11.5-14.0); WHITE BLOOD COUNT 7.2 10^3/uL (4.0-10.5)
[2019-10-16] MEDS: PANTOPRAZOLE SODIUM 40 MG TABLET.DR PO SCH (06:39)
--- NOTE | 2019-10-16 06:41 | PDOC TRANSFER SUMMARY ---
Impression - Admit/DC Date/PCP Admission Date/Primary Care Provider: 10/13/19 11:36 ELSA AGUILERA MD Discharge Date: 10/16/19 - Discharge Diagnosis (1) Arthritis of right knee Is this a current diagnosis for this admission?: Yes - Additional Information Resuscitation Status: Full Code Discharge Diet: Regular Discharge Activity: Balance Activity w/Rest, No tub bath Referrals: LUKE FINK MD [ACTIVE STAFF] - 10/21/19 10:15 am Home Medications: Baclofen [Baclofen 10 mg Tablet] 10 mg PO DAILY 09/22/19 Lamotrigine 50 mg PO DAILY 09/22/19 Olanzapine [Olanzapine Odt] 10 mg SL QHS 09/22/19 History of Present Illiness History of Present Illness: TONY CORTEZ is a 49 year old male 49-year-old white male with progressive right knee pain and functional disability secondary posttraumatic osteoarthritis. Patient admitted for elective right knee arthroplasty. Hospital Course Hospital Course: Patient is admitted through the operating room he undergoes an unconjugated right knee arthroplasty appears returned to floor in satisfactory condition. He makes excellent progress with physical therapy. Hospitalist sensation is delayed because of discharge planning issues. Physical Exam Vital Signs: Temp Pulse Resp BP Pulse Ox 36.5 C 88 18 118/56 L 100 10/15/19 23:04 10/15/19 23:04 10/15/19 23:04 10/15/19 23:04 10/15/19 23:04 Intake & Output 10/14/19 10/15/19 10/16/19 06:59 06:59 06:59 Intake Total 2956 1350 2476 Output Total 1680 1075 3200 Balance 1276 275 -724 Weight 104.3 kg 104 kg General appearance: PRESENT: no acute distress Head exam: PRESENT: normocephalic Respiratory exam: PRESENT: unlabored Cardiovascular exam: PRESENT: RRR Pulses: PRESENT: +1 pedal pulses bilateral GI/Abdominal exam: PRESENT: soft Rectal exam: PRESENT: deferred Musculoskeletal exam: PRESENT: other - Right knee dressing with some dried drainage at the inferior aspect. Minimal pedal edema. Distal neurovascular examination is intact. Results Laboratory Results: WBC 7.2 10^3/uL (4.0-10.5) 10/16/19 05:34 RBC 3.16 10^6/uL (4.35-5.55) L 10/16/19 05:34 Hgb 8.3 g/dL (13.5-17.0) L 10/16/19 05:34 Hct 25.2 % (37.9-51.0) L 10/16/19 05:34 MCV 80 fl (80-97) 10/16/19 05:34 MCH 26.2 pg (27.0-33.4) L 10/16/19 05:34 MCHC 32.8 g/dL (32.0-36.0) 10/16/19 05:34 RDW 18.7 % (11.5-14.0) H 10/16/19 05:34 Plt Count 175 10^3/uL (150-450) 10/16/19 05:34 Sodium 136.7 mmol/L (137-145) L 10/14/19 05:09 Potassium 4.1 mmol/L (3.6-5.0) 10/14/19 05:09 Chloride 103 mmol/L (98-107) 10/14/19 05:09 Carbon Dioxide 28 mmol/L (22-30) 10/14/19 05:09 Anion Gap 6 (5-19) 10/14/19 05:09 BUN 10 mg/dL (7-20) 10/14/19 05:09 Creatinine 0.73 mg/dL (0.52-1.25) 10/14/19 05:09 Est GFR ( Amer) > 60 (>60) 10/14/19 05:09 Est GFR (MDRD) Non-Af > 60 (>60) 10/14/19 05:09 Glucose 198 mg/dL (75-110) H 10/14/19 05:09 Calcium 8.7 mg/dL (8.4-10.2) 10/14/19 05:09 Impressions: Knee X-Ray 10/13/19 11:38 IMPRESSION: SATISFACTORY POSTOPERATIVE RIGHT KNEE. Plan Plan of Treatment: Patient to be discharged with long-term facility when bed available. Patient can be weightbearing as tolerated right lower extremity. Follow-up with Dr. Fink and [facility] for surgery in 2 weeks for staple removal. Time Spent: Less than 30 Minutes Stroke Is this a Stroke Patient?: No Stroke Pt being discharged on Anti-thrombolytic therapy?: Yes Acute Heart Failure - Is this a Heart Failure Patient?: No
[2019-10-16] MEDS: MORPHINE SULFATE 10 MG/ML INJ IV PRN ×3 (08:10→20:24)
[2019-10-16] MEDS: BACLOFEN 10 MG TABLET PO SCH (10:47)
[2019-10-16] MEDS: PREGABALIN 75 MG CAPSULE PO SCH ×2 (10:47→17:31)
[2019-10-16] MEDS: PRENATAL VITAMIN W DHA CAPSULE PO SCH (10:47)
[2019-10-16] MEDS: SENNOSIDES/DOCUSATE 8.6-50 MG 1 EACH TABLET PO SCH ×2 (10:47→17:31)
[2019-10-16] MEDS: LAMOTRIGINE 25 MG TAB.CHEW PO SCH (10:48)
[2019-10-16] MEDS: OLANZAPINE 5 MG TAB.RAPDIS PO SCH (21:24)
[2019-10-17] MEDS: PANTOPRAZOLE SODIUM 40 MG TABLET.DR PO SCH (05:35)
[2019-10-17] MEDS: OXYCODONE HCL IR 5 MG TABLET PO PRN (05:35)
[2019-10-17] MEDS: MORPHINE SULFATE 10 MG/ML INJ IV PRN ×2 (05:51→10:09)
[2019-10-17] MEDS: PREGABALIN 75 MG CAPSULE PO SCH (09:57)
[2019-10-17] MEDS: PRENATAL VITAMIN W DHA CAPSULE PO SCH (09:58)
[2019-10-17] MEDS: LAMOTRIGINE 25 MG TAB.CHEW PO SCH (09:58)
[2019-10-17] MEDS: BACLOFEN 10 MG TABLET PO SCH (09:58)
[2019-10-17] MEDS: SENNOSIDES/DOCUSATE 8.6-50 MG 1 EACH TABLET PO SCH (09:58)
[2019-10-17 17:28] VITALS: BP 127/55
== END 2019-10-17 19:26 | DRG 470 ==
LOC: OROUT 07:57 → 4N 11:36
PROVIDERS: ADMIT Orthopaedic Surgery; ATTEND Orthopaedic Surgery
PROC: 0SRC0J9 Replacement of Right Knee Joint with Synthetic Substitute, Cemented, Open Approach (ICD-10-PCS; principal; 2019-10-13 10:00)
DX: M17.31 Unilateral post-traumatic osteoarthritis, right knee (principal); F84.0 Autistic disorder; D46.4 Refractory anemia, unspecified; F31.9 Bipolar disorder, unspecified; F43.10 Post-traumatic stress disorder, unspecified; Z82.49 Family history of ischemic heart disease and other diseases of the circulatory system; Z83.3 Family history of diabetes mellitus; Z96.0 Presence of urogenital implants
CPT/HCPCS: 01402; 36415; 80048; 85027; 88305; 88311; C1713; C1776; J0690; J1100; J1741; J2250; J2270; J2405; J2704; J3010; J3370; J3490; J7050; J7060

== ENCOUNTER 2019-10-21 16:56 | Observation (INO) | payer MEDICARE ==
[2019-10-21 18:20] LABS: ABSOLUTE EOSINOPHILS # (AUTO) 0.5 10^3/uL (0.0-0.6); ABSOLUTE LYMPHOCYTES (AUTO) 1.2 10^3/uL (0.5-4.7); ABSOLUTE MONOCYTES (AUTO) 0.5 10^3/uL (0.1-1.4); ABSOLUTE NEUT (AUTO) 4.1 10^3/uL (1.7-8.2); BASOPHILS % (AUTO) 0.7 % (0-2); EOSINOPHILS % (AUTO) 7.4 % (0-6); HEMATOCRIT 26.6 % (37.9-51.0); HEMOGLOBIN 8.9 g/dL (13.5-17.0); LYMPHOCYTES % (AUTO) 19.2 % (13-45); MEAN CORPUSCULAR HEMOGLOBIN 26.9 pg (27.0-33.4); MEAN CORPUSCULAR HGB CONC 33.4 g/dL (32.0-36.0); MEAN CORPUSCULAR VOLUME 80 fl (80-97); MONOCYTES % (AUTO) 8.4 % (3-13); PLATELET COUNT 346 10^3/uL (150-450); RED BLOOD COUNT 3.31 10^6/uL (4.35-5.55); RED CELL DISTRIBUTION WIDTH 18.7 % (11.5-14.0); SEGMENTED NEUTROPHILS % (AUTO) 64.3 % (42-78); TOTAL CELLS COUNTED % (AUTO) 100 %; WHITE BLOOD COUNT 6.4 10^3/uL (4.0-10.5)
[2019-10-21 19:01] LABS: ALBUMIN 3.2 g/dL (3.5-5.0); ALKALINE PHOSPHATASE 89 U/L (38-126); ANION GAP 7 (5-19); ASPARTATE AMINO TRANSFERASE 19 U/L (17-59); BILIRUBIN,DIRECT 0.2 mg/dL (0.0-0.4); BILIRUBIN,TOTAL 0.8 mg/dL (0.2-1.3); BLOOD UREA NITROGEN 14 mg/dL (7-20); CARBON DIOXIDE 29 mmol/L (22-30); CHLORIDE 100 mmol/L (98-107); GLUCOSE 98 mg/dL (75-110); POTASSIUM 4.2 mmol/L (3.6-5.0); TOTAL PROTEIN 5.8 g/dL (6.3-8.2)
[2019-10-21] MEDS ORDERED: RIVAROXABAN 15 MG TABLET PO ONE (20:16)
[2019-10-21] MEDS ORDERED: OXYCODONE-ACETAMINOPHEN 5-325 MG TABLET PO ONE (20:20)
--- NOTE | 2019-10-21 20:26 | ER Document Report ---
ED General - General Chief Complaint: Leg Pain Stated Complaint: RIGHT KNEE SWELLING Time Seen by Provider: 10/21/19 18:27 Primary Care Provider: ELSA AGUILERA MD [Primary Care Provider] - Follow up as needed TRAVEL OUTSIDE OF THE [place] IN LAST 30 DAYS: No - HPI Notes: Mr. Oneal is a 49-year-old with a chief complaint of swelling pain and redness right lower leg. This gentleman is 8 days status post right total knee arthroplasty performed by Dr. Isaiah Fink. Patient was advised to come here by Dr. Fink today because of concern for possible DVT. Patient has a pre-existing history of osteoarthritis and transverse myelitis. He has a chronic neurogenic bladder with Vo catheter in situ and was walking with an assistive device prior to knee arthroplasty. Original plan was for this man to go to a rehabilitation facility short-term postoperatively but this was apparently not covered by Medicare and so he is currently at home by himself. He reports that he is taking Percocet 1 tablet every 4-6 hours and currently feels that this is not adequate for his pain. He expresses concern about his difficulty to do his physical therapy or provide care for himself at home at this time. Patient denies any chest pain. No hemoptysis. No shortness of breath. He is unaware of any renal disease. He denies any history of serious bleeding disorders. He was previously treated for DVT more than 5 years ago in the same extremity and was apparently treated with warfarin at that time. No bleeding problems were encountered while he was on warfarin during that episode. He said he remained on treatment for about 3 months at that time. - Related Data Allergies/Adverse Reactions: No Known Allergies Allergy (Verified 09/09/19 12:30) Past Medical History - General Information source: Patient - Social History Smoking Status: Never Smoker Chew tobacco use (# tins/day): No Frequency of alcohol use: None Drug Abuse: None Family History: None, Reviewed & Not Pertinent, Hypertension Patient has suicidal ideation: No Patient has homicidal ideation: No - Past Medical History Cardiac Medical History: Denies: Hx Heart Attack, Hx Hypercholesterolemia, Hx Hypertension Pulmonary Medical History: Denies: Hx Asthma, Hx Bronchitis, Hx COPD, Hx Sleep Apnea Neurological Medical History: Reports: Other - Transverse myelitis. Denies: Hx Cerebrovascular Accident, Hx Seizures Endocrine Medical History: Denies: Hx Hyperthyroidism, Hx Hypothyroidism Renal/ Medical History: Reports: Hx Kidney Stones, Other - Neurogenic bladder with chronic Vo catheter in situ. Denies: Hx Benign Prostatic Hyperplasia, Hx End Stage Renal Disease, Hx Peritoneal Dialysis GI Medical History: Denies: Hx Crohn's Disease, Hx Gastroesophageal Reflux Disease, Hx Hiatal Hernia, Hx Irritable Bowel, Hx Liver Failure, Hx Bal creatitis, Hx Ulcer Musculoskeletal Medical History: Reports Hx Arthritis, Denies Hx Fibromyalgia, Denies Hx Muscular Dystrophy Psychiatric Medical History: Reports: Hx Bipolar Disorder, Hx Borderline Personality Disorder, Hx Depression, Hx Post Traumatic Stress Disorder, Hx Schizophrenia Traumatic Medical History: Reports: Hx Fractures - left tibia Past Surgical History: Reports: Hx Cholecystectomy, Hx Genitourinary Surgery - Suprapubic catheter. Denies: Hx Appendectomy, Hx Bowel Surgery, Hx Colostomy, Hx Coronary Artery Bypass Graft, Hx Gastric Bypass Surgery, Hx Herniorrhaphy, Hx Pacemaker, Hx Tonsillectomy - Immunizations Immunizations up to date: Yes Hx Diphtheria, Pertussis, Tetanus Vaccination: Yes Review of Systems - Review of Systems Notes: Constitutional: Negative for fever. HENT: Negative for sore throat. Eyes: Negative for visual changes. Cardiovascular: Negative for chest pain. Respiratory: Negative for shortness of breath. Gastrointestinal: Negative for abdominal pain, vomiting or diarrhea. Genitourinary: As per HPI and PMH.. Musculoskeletal: As per HPI. Skin: Negative for rash. Neurological: Negative for headaches, weakness or numbness. 10 point ROS negative except as marked above and in HPI. Physical Exam - Vital signs Vitals: Temp Pulse Resp BP Pulse Ox 97.9 F 85 18 112/81 96 10/21/19 17:11 10/21/19 17:11 10/21/19 17:11 10/21/19 17:11 10/21/19 17:11 - Notes Notes: GENERAL: Well-developed well-nourished appearing moderately uncomfortable. SKIN: Good turgor. HEAD: Normocephalic atraumatic. EYES: PERRLA. EOMI. Conjunctivae and sclerae clear. EARS: CANALS AND TMS CLEAR. NOSE: CLEAR. Throat: Clear. MOUTH: Moist mucosa. Good dentition. No stridor or edema. No drooling. NECK: Supple. No masses or thyromegaly. No adenopathy. Carotids 2+ without bruits. No JVD. BACK: Symmetrical without tenderness. CHEST: Respirations unlabored. Breath sounds clear and symmetrical. HEART: Regular rhythm. No murmur gallop or rub. ABDOMEN: Soft nontender without masses, organomegaly or rebound. Bowel sounds normally active. No bruits. GENITALIA: Vo catheter in situ. EXTREMITIES: Healing surgical wound right anterior surface of the knee joint with mild redness. Wound is clean and dry. Patient has redness warmth tenderness and 2+ edema of the right lower leg. Cap refill less than 1.5 seconds. Dorsalis pedis and posterior tibial pulses 3+ and symmetrical. NEUROLOGICAL: GCS 15. Alert and oriented x3. Right fluent speech. Cranial nerves II through XII intact. Sensorimotor and cerebellar normal. Normal tone. Psychiatric: Normal affect. Course - Re-evaluation Re-evalutation: 10/21/19 20:28 Ultrasound of right lower extremities positive for DVT. I see no contraindication to Xarelto and have initiated care with 15 mg p.o. now. His disposition is a little more problematic because of his baseline impairments related to his transverse myelitis. I will ask discharge planning team to cons ult at this time prior to disposition of this patient. 10/21/19 21:37 Discharge search marketing coordinator has been paged multiple times and has yet to return our call. Situation is been discussed with charge nurse and she is provided a number for an additional person that we can attempt to contact. We are still waiting for callback at this time. 10/21/19 22:34 Spoke with discharge search marketing coordinator and they recommended that we try to get this man into observation status admission overnight. Dr. Martinez has agreed to bring in for observation. - Vital Signs Vital signs: Temp Pulse Resp BP Pulse Ox 97.9 F 85 18 112/81 96 10/21/19 17:11 10/21/19 17:11 10/21/19 17:11 10/21/19 17:11 10/21/19 17:11 - Laboratory Result Diagrams: 10/21/19 17:52 10/21/19 17:52 Laboratory results interpreted by me: 10/21/19 10/21/19 10/21/19 17:52 17:52 17:52 RBC 3.31 L Hgb 8.9 L Hct 26.6 L MCH 26.9 L RDW 18.7 H Eos % (Auto) 7.4 H D-Dimer 3.54 H Sodium 136.2 L Total Protein 5.8 L Albumin 3.2 L - Diagnostic Test Radiology reviewed: Reports reviewed Discharge - Discharge Clinical Impression: Right leg DVT Qualifiers: Affected thrombotic vein of extremity: unspecified vein of extremity Chronicity: acute Qualified Code(s): I82.401 - Acute embolism and thrombosis of unspecified deep veins of right lower extremity Condition: Good Disposition: ADMITTED OBSERVATION Admitting Provider: Juan (Hospitalist) Referrals: ELSA AGUILERA MD [Primary Care Provider] - Follow up as needed
[2019-10-21] MEDS ORDERED: MORPHINE SULFATE 10 MG/ML INJ IV PRN ×2 (23:18)
[2019-10-22] MEDS: MORPHINE SULFATE 10 MG/ML INJ IV PRN ×6 (02:03→15:34)
[2019-10-22] MEDS ORDERED: MAG HYDROX/AL HYDROX/SIMETH SUSP 30 ML UDCUP PO PRN (03:41)
[2019-10-22] MEDS ORDERED: MAGNESIUM HYDROXIDE SUSP 30 ML UDCUP PO PRN (03:41)
[2019-10-22] MEDS ORDERED: PROMETHAZINE HCL INJ 25 MG/1 ML VIAL IV PRN (03:41)
[2019-10-22] MEDS ORDERED: MEROPENEM 1 GM VIAL IV SCH (03:45)
--- NOTE | 2019-10-22 03:48 | PDOC H&P ---
History of Present Illness Admission Date/PCP: 10/21/2019 23:20 ELSA AGUILERA MD Patient complains of: Right leg pain History of Present Illness: TONY CORTEZ is a 49 year old male who presented to the emergency room with a 2-day history of right leg pain. He admits to progressively worsening pain in his right calf that has been accompanied by progressive redness and swelling of his right lower leg. The pain worsens with any weightbearing or activity, has become severe and is limiting his ability to ambulate to care for himself at home. He admits a right total knee surgery, performed by Dr. Fink 8 days ago. He denies other associated or accompanying signs and symptoms. He denies prior similar episodes. He has not identified any additional aggravating or ameliorating factors for his right leg pain. In the emergency room he was found to have a deep venous thrombosis present in the right calf and was treated with oral Xarelto. Because the patient is unable to care for himself at home he has been placed in observation status here until such time as social worker delinquency prevention can ar range for rehab placement. Past Medical History Cardiac Medical History: Reports: DVT Denies: Atrial Fibrillation, Congestive Heart Failure, Coronary Artery Di sease, Myocardial Infarction, Hyperlipidema, Hypertension Pulmonary Medical History: Denies: Asthma, Bronchitis, Chronic Obstructive Pulmonary Disease (COPD), Sleep Apnea EENT Medical History: Denies: Cataracts, Ears - Hearing aid Neurological Medical History: Reports: Other - Transverse myelitis Denies: Hemorrhagic CVA, Ischemic CVA, Seizures Endocrine Medical History: Denies: Diabetes Mellitus Type 1, Diabetes Mellitus Type 2, Hyperthyroidism, Hypothyroidism Renal/ Medical History: Reports: Nephrolithiasis, Other - Neurogenic bladder with chronic Vo catheter in situ Denies: Chronic Kidney Disease Malignancy Medical History: Reports: None GI Medical History: Denies: Cirrhosis, Crohn's Disease, Gastroesophageal Reflux Disease, Hepatitis, Hiatal Hernia Musculoskeltal Medical History: Reports: Arthritis Denies: Fibromyalgia, Gout Skin Medical History: Denies: Eczema, Psoriasis Psychiatric Medical History: Reports: Bipolar Disorder, Depression, Post Traumatic Stress Disorder Denies: Alcohol Dependency, Substance Abuse, Tobacco Dependency Traumatic Medical History: Reports: None Hematology: Denies: Anemia, Bleeding Tendencies Infectious Medical History: Reports: None Past Surgical History Past Surgical History: Reports: Cholecystectomy Social History Information Source: Patient Lives with: Alone Smoking Status: Never Smoker Electronic Cigarette use?: No Frequency of Alcohol Use: Occasional Hx Recreational Drug Use: No Drugs: None Hx Prescription Drug Abuse: No - Advance Directive Resuscitation Status: Full Code Surrogate healthcare decision maker:: Patient refuses to provide a designated surrogate medical decision-maker Family History Family History: Hypertension. denies: CAD, DM, Malignancy Parental Family History Reviewed: Yes Children Family History Reviewed: No Sibling(s) Family History Reviewed.: Yes Medication/Allergy Home Medications: Baclofen [Baclofen 10 mg Tablet] 10 mg PO DAILY 09/22/19 Lamotrigine 50 mg PO DAILY 09/22/19 Olanzapine [Olanzapine Odt] 10 mg SL QHS 09/22/19 Allergies/Adverse Reactions: No Known Allergies Allergy (Verified 09/09/19 12:30) Review of Systems Constitutional: ABSENT: chills, fever(s) Eyes: ABSENT: visual disturbances, other - Eye pain Ears: ABSENT: hearing changes, other - Ear pain Nose, Mouth, and Throat: ABSENT: headache(s), mouth pain, sore throat Cardiovascular: PRESENT: as per HPI, edema - Right lower extremity. ABSENT: dyspnea on exertion, palpitations Respiratory: ABSENT: cough, dyspnea Gastrointestinal: ABSENT: abdominal pain, constipation, diarrhea, nausea, vo miting Genitourinary: ABSENT: dysuria, hematuria Integumentary: PRESENT: as per HPI, erythema - Right lower extremity. ABSENT: pruritus, rash Neurological: PRESENT: abnormal gait - Abnormal gait to painful weightbearing on right lower extremity. ABSENT: confusion, convulsions, focal weakness, memory loss, syncope Psychiatric: ABSENT: anxiety, depression Endocrine: ABSENT: cold intolerance, heat intolerance Hematologic/Lymphatic: ABSENT: easy bleeding, easy bruising Allergic/Immunologic: ABSENT: seasonal rhinorrhea Physical Exam Vital Signs: Temp Pulse Resp BP Pulse Ox 97.9 F 85 18 112/81 96 10/21/19 17:11 10/21/19 17:11 10/21/19 17:11 10/21/19 17:11 10/21/19 17:11 Intake & Output 10/19/19 10/20/19 10/21/19 23:59 23:59 23:59 Weight 102.27 kg General appearance: PRESENT: no acute distress, cooperative Head exam: PRESENT: atraumatic, normocephalic Eye exam: PRESENT: conjunctiva pink. ABSENT: conjunctival injection, scleral icterus Ear exam: PRESENT: normal external ear exam. ABSENT: bleeding, drainage Mouth exam: PRESENT: dry mucosa, neck supple Neck exam: ABSENT: thyromegaly, tracheal deviation Respiratory exam: PRESENT: clear to auscultation samia, symmetrical, unlabored Cardiovascular exam: PRESENT: RRR. ABSENT: clicks, gallop, rubs Pulses: PRESENT: normal carotid pulses, normal radial pulses Vascular exam: PRESENT: normal capillary refill. ABSENT: pallor GI/Abdominal exam: PRESENT: normal bowel sounds, soft Rectal exam: PRESENT: deferred Extremities exam: PRESENT: pedal edema - Right lower extremity, +2 edema - Right lower extremity. ABSENT: joint swelling Musculoskeletal exam: ABSENT: deformity, dislocation Neurological exam: PRESENT: alert, oriented to person, oriented to place, oriented to time, oriented to situation, CN II-XII grossly intact, motor sensory deficit - Findings of weakness in the lower extremities consistent with history of transverse myelitis Psychiatric exam: PRESENT: appropriate affect, normal mood Skin exam: PRESENT: dry, intact, warm. ABSENT: jaundice, rash, urticaria Results Laboratory Results: 10/21/19 17:52 10/21/19 17:52 10/21/19 10/21/19 17:52 17:52 WBC 6.4 RBC 3.31 L Hgb 8.9 L Hct 26.6 L MCV 80 MCH 26.9 L MCHC 33.4 RDW 18.7 H Plt Count 346 Seg Neutrophils % 64.3 Sodium 136.2 L Potassium 4.2 Chloride 100 Carbon Dioxide 29 Anion Gap 7 BUN 14 Creatinine 0.80 Est GFR ( Amer) > 60 Glucose 98 Calcium 9.0 Total Bilirubin 0.8 AST 19 Alkaline Phosphatase 89 Total Protein 5.8 L Albumin 3.2 L Assessment and Plan - Diagnosis (1) Right leg DVT Qualifiers: Affected thrombotic vein of extremity: unspecified vein of extremity Chronicity: acute Qualified Code(s): I82.401 - Acute embolism and thrombosis of unspecified deep veins of right lower extremity Is this a current diagnosis for this admission?: Yes (2) Postoperative pain of right knee Is this a current diagnosis for this admission?: Yes (3) Postoperative anemia due to acute blood loss Is this a current diagnosis for this admission?: Yes (4) Neurogenic dysfunction of the urinary bladder Is this a current diagnosis for this admission?: Yes (5) UTI (urinary tract infection) due to urinary indwelling Vo catheter Qualifiers: Indwelling urinary catheter type: indwelling urethral catheter Encounter type: initial encounter Qualified Code(s): T83.511A - Infection and inflammatory reaction due to indwelling urethral catheter, initial encounter; N39.0 - Urinary tract infection, site not specified Is this a current diagnosis for this admission?: Yes - Plan Summary Summary: Patient will be admitted to the medical floor on observation status. He will receive morphine sulfate 2 to 4 mg IV every 2 hours on an as-needed basis for control of his pain. His right lower extremity will be elevated as much as possible to help reduce discomfort. vp marketing services and skin will be consulted to help find an appropriate rehabilitation location for this patient. Patient will be continued on Xarelto 15 mg p.o. twice daily through his initial therapy course and then converted to 20 mg p.o. daily. He will receive routine symptomatic and supportive cares on the medical service. A UA, urine culture and a blood culture will be obtained. Patient was started empirically on meropenem as treatment for his healthcare associated urinary tract infection. - Time Time Spent with patient: 25-34 minutes Medications reviewed and adjusted accordingly: Yes Anticipated discharge: SNF, Acute Rehab - Inpatient Certification Based on my medical assessment, after consideration of the patient's comorbidities, presenting symptoms, or acuity I expect that the services needed warrant INPATIENT care.: No I certify that my determination is in accordance with my understanding of Medicare's requirements for reasonable and necessary INPATIENT services [42 CFR 412.3e].: No Medical Necessity: Need for Pain Control, Need for IV Antibiotics
[2019-10-22] MEDS ORDERED: MEROPENEM 1 GM VIAL IV PRN (04:03)
[2019-10-22] MEDS ORDERED: MEROPENEM 1 GM VIAL ONE (05:27)
[2019-10-22 06:03] LABS: APPEARANCE,URINE TURBID; BILIRUBIN,URINE NEGATIVE (NEGATIVE); COLOR,URINE YELLOW; GLUCOSE, URINE NEGATIVE (NEGATIVE); KETONES,URINE NEGATIVE (NEGATIVE); LEUKOCYTE ESTERASE,URINE LARGE (NEGATIVE); NITRITE,URINE POSITIVE (NEGATIVE); PROTEIN,URINE 100 mg/dL (NEGATIVE); URINE SPECIFIC GRAVITY 1.011
[2019-10-22] MEDS: MEROPENEM 1 GM in NORMAL SALINE 50 ML IV SCH ×3 (06:26→21:57)
[2019-10-22] MEDS ORDERED: CEFTRIAXONE 1 GM/D5W RTU 1 GM/50 ML RTUPB IV ONE (06:43)
--- NOTE | 2019-10-22 07:14 | XCELERA REPORT ---
[address] [place] [facility] [address] Lower Extremity Venous Evaluation Procedure: Color flow and duplex imaging of the veins of the right lower extremity as well as the left Common Femoral vein. Right Sided Venous Evaluation Abnormal vessel filling, no compression or Colour flow ,lucent on jimenez scale, from Femoral down to the Popliteal veins. Left Sided Venous Evaluation The left common femoral vein is fully compressible. Spontaneous and phasic flow is present in the left common femoral vein. Critical Findings Discussed with Dr Weaver in the Emergency room. Interpretation Summary Acute Deep venous thrombosis in the right Femoral and Popliteal veins. Name: TONY CORTEZ Age: 49 yrs Gender: Male : 1970 Patient Status: Emergency Patient Location: ER Study Date: 10/21/2019 07:20 PM Reason For Study: right lower calf pain Ordering Physician: JODI WEAVER Performed By: Adeline Gómez : JODI WEAVER > Savage Funez
[2019-10-22] MEDS: RIVAROXABAN 15 MG TABLET PO SCH ×2 (07:37→17:38)
[2019-10-22] MEDS: ACETAMINOPHEN 325 MG TABLET PO PRN (08:11)
[2019-10-22] MEDS: FAMOTIDINE INJ/PF 20 MG/2 ML SDV IV SCH ×2 (09:17→21:59)
[2019-10-22] MEDS: DOCUSATE SODIUM 100 MG CAPSULE PO SCH ×2 (09:17→17:38)
[2019-10-22] MEDS: OXYCODONE-ACETAMINOPHEN 5-325 MG TABLET PO PRN ×2 (17:37→21:58)
[2019-10-23] MEDS: OXYCODONE-ACETAMINOPHEN 5-325 MG TABLET PO PRN ×5 (02:29→21:05)
[2019-10-23] MEDS: MEROPENEM 1 GM in NORMAL SALINE 50 ML IV SCH (05:11)
[2019-10-23 05:48] LABS: HEMOGLOBIN 9.3 g/dL (13.5-17.0); MEAN CORPUSCULAR HEMOGLOBIN 26.9 pg (27.0-33.4); MEAN CORPUSCULAR HGB CONC 33.4 g/dL (32.0-36.0); MEAN CORPUSCULAR VOLUME 81 fl (80-97); PLATELET COUNT 316 10^3/uL (150-450); RED BLOOD COUNT 3.47 10^6/uL (4.35-5.55); RED CELL DISTRIBUTION WIDTH 18.9 % (11.5-14.0); WHITE BLOOD COUNT 5.8 10^3/uL (4.0-10.5)
[2019-10-23 06:21] LABS: ANION GAP 5 (5-19); BLOOD UREA NITROGEN 8 mg/dL (7-20); CALCIUM 8.8 mg/dL (8.4-10.2); CARBON DIOXIDE 31 mmol/L (22-30); CHLORIDE 103 mmol/L (98-107); GLUCOSE 97 mg/dL (75-110)
[2019-10-23] MEDS: RIVAROXABAN 15 MG TABLET PO SCH ×2 (07:22→16:31)
[2019-10-23] MEDS: DOCUSATE SODIUM 100 MG CAPSULE PO SCH ×2 (09:45→17:11)
[2019-10-23] MEDS: FAMOTIDINE INJ/PF 20 MG/2 ML SDV IV SCH ×2 (09:45→21:06)
--- NOTE | 2019-10-23 13:33 | PDOC PROGRESS REPORT ---
Subjective Progress Note for:: 10/22/19 Reason For Visit: POSTOPERAVTIVE DVT RIGHT LOWER EXTREMITY 10/22/2019 DVT right lower extremity, status post knee procedure Physical Exam Vital Signs: Temp Pulse Resp BP Pulse Ox 97.6 F 72 16 108/66 98 10/23/19 11:14 10/23/19 11:14 10/23/19 11:14 10/23/19 11:14 10/23/19 11:14 Intake & Output 10/22/19 10/23/19 10/24/19 06:59 06:59 06:59 Intake Total 290 1027 600 Output Total 400 2100 2200 Balance -110 -1073 -1600 Weight 108 kg 111.1 kg General appearance: PRESENT: no acute distress Respiratory exam: PRESENT: clear to auscultation samia. ABSENT: rales, rhonchi, wheezes Cardiovascular exam: PRESENT: RRR. ABSENT: diastolic murmur, rubs, systolic murmur Extremities exam: PRESENT: joint swelling, tenderness, other - Right redness to the knee slight redness to the right calf, mild edema warmth to the touch Neurological exam: PRESENT: alert, awake, oriented to person, oriented to place, oriented to time, oriented to situation, CN II-XII grossly intact. ABSENT: motor sensory deficit Psychiatric exam: PRESENT: unusual affect, other - Can ask him to stay into the hospital until he can ambulate greater than 15 feet. Patient complaining of right leg pain Results Laboratory Results: 10/23/19 04:10 10/23/19 04:10 10/23/19 10/23/19 04:10 04:10 WBC 5.8 RBC 3.47 L Hgb 9.3 L Hct 28.0 L MCV 81 MCH 26.9 L MCHC 33.4 RDW 18.9 H Plt Count 316 Sodium 139.1 Potassium 4.0 Chloride 103 Carbon Dioxide 31 H Anion Gap 5 BUN 8 Creatinine 0.66 Est GFR ( Amer) > 60 Glucose 97 Calcium 8.8 Magnesium 2.0 Assessment and Plan - Diagnosis (1) Deep vein thrombosis Is this a current diagnosis for this admission?: Yes (2) UTI (urinary tract infection) due to urinary indwelling Vo catheter Qualifiers: Indwelling urinary catheter type: indwelling urethral catheter Encounter type: initial encounter Qualified Code(s): T83.511A - Infection and inflammatory reaction due to indwelling urethral catheter, initial encounter; N39.0 - Urinary tract infection, site not specified Is this a current diagnosis for this admission?: Yes (3) Arthritis of right knee Is this a current diagnosis for this admission?: Yes (4) Neurogenic dysfunction of the urinary bladder Is this a current diagnosis for this admission?: Yes (5) Postoperative pain of right knee Is this a current diagnosis for this admission?: Yes - Plan Summary Summary: Patient will be admitted to the medical floor on observation status. He will receive morphine sulfate 2 to 4 mg IV every 2 hours on an as-needed basis for control of his pain. His right lower extremity will be elevated as much as possible to help reduce discomfort. nutritional services cook will be consulted to help find an appropriate rehabilitation location for this patient. Patient will be continued on Xarelto 15 mg p.o. twice daily through his initial therapy course and then converted to 20 mg p.o. daily. He will receive routine symptomatic and supportive cares on the medical service. A UA, urine culture and a blood culture will be obtained. Patient was started empirically on meropenem as t reatment for his healthcare associated urinary tract infection. 10/22/2019 Patient urine culture was pending WBCs are normal electrolytes are grossly normal Patient currently on Xarelto 10 mg twice daily as well as meropenem IV To DC patient as soon as we have discharge planning arranging his needs - Time Time Spent with patient: 25-34 minutes
--- NOTE | 2019-10-23 13:42 | PDOC PROGRESS REPORT ---
Subjective Progress Note for:: 10/23/19 Reason For Visit: POSTOPERAVTIVE DVT RIGHT LOWER EXTREMITY 10/23/2019 DVT right lower extremity Physical Exam Vital Signs: Temp Pulse Resp BP Pulse Ox 97.6 F 72 16 108/66 98 10/23/19 11:14 10/23/19 11:14 10/23/19 11:14 10/23/19 11:14 10/23/19 11:14 Intake & Output 10/22/19 10/23/19 10/24/19 06:59 06:59 06:59 Intake Total 290 1027 600 Output Total 400 2100 2200 Balance -110 -1073 -1600 Weight 108 kg 111.1 kg General appearance: PRESENT: no acute distress Respiratory exam: PRESENT: clear to auscultation samia. ABSENT: rales, rhonchi, wheezes Cardiovascular exam: PRESENT: RRR. ABSENT: diastolic murmur, rubs, systolic murmur Neurological exam: PRESENT: other - Neuropathy from about T10 down neurogenic bladder and bowel Psychiatric exam: PRESENT: unusual affect - Patient seems to be somewhat manipulative Results Laboratory Results: 10/23/19 04:10 10/23/19 04:10 10/23/19 10/23/19 04:10 04:10 WBC 5.8 RBC 3.47 L Hgb 9.3 L Hct 28.0 L MCV 81 MCH 26.9 L MCHC 33.4 RDW 18.9 H Plt Count 316 Sodium 139.1 Potassium 4.0 Chloride 103 Carbon Dioxide 31 H Anion Gap 5 BUN 8 Creatinine 0.66 Est GFR ( Amer) > 60 Glucose 97 Calcium 8.8 Magnesium 2.0 Assessment and Plan - Diagnosis (1) Deep vein thrombosis Is this a current diagnosis for this admission?: Yes (2) UTI (urinary tract infection) due to urinary indwelling Vo catheter Qualifiers: Indwelling urinary catheter type: indwelling urethral catheter Encounter type: initial encounter Qualified Code(s): T83.511A - Infection and inflammatory reaction due to indwelling urethral catheter, initial encounter; N39.0 - Urinary tract infection, site not specified Is this a current diagnosis for this admission?: Yes (3) Arthritis of right knee Is this a current diagnosis for this admission?: Yes (4) Neurogenic dysfunction of the urinary bladder Is this a current diagnosis for this admission?: Yes (5) Postoperative pain of right knee Is this a current diagnosis for this admission?: Yes - Plan Summary Summary: Patient will be admitted to the medical floor on observation status. He will receive morphine sulfate 2 to 4 mg IV every 2 hours on an as-needed basis for control of his pain. His right lower extremity will be elevated as much as possible to help reduce discomfort. client services administrator will be consulted to help find an appropriate rehabilitation location for this patient. Patient will be continued on Xarelto 15 mg p.o. twice daily through his initial therapy course and then converted to 20 mg p.o. daily. He will receive routine symptomatic and supportive cares on the medical service. A UA, urine culture and a blood culture will be obtained. Patient was started empirically on meropenem as treatment for his healthcare associated urinary tract infection. 10/22/2019 Patient urine culture was pending WBCs are normal electrolytes are grossly normal Patient currently on Xarelto 10 mg twice daily as well as meropenem IV To DC patient as soon as we have discharge planning arranging his needs 10/23/2019 Continue patient over to p.o. Cipro Check PT/INR today To new physical therapy twice in the hospital for gait assistance Awaiting information from [facility] considering [facility] facility. Patient is medically stable for discharge home in my opinion Will need home physical therapy, continue Xarelto 20 mg twice daily and Cipro 500 mg twice daily White count is normal at 5800 ,electrolytes are normal - Time Time Spent with patient: 25-34 minutes
[2019-10-23 15:11] LABS: PARTIAL THROMBOPLASTIN TIME 41.5 SEC (23.5-35.8); PROTHROMBIN TIME 19.2 SEC (11.4-15.4)
[2019-10-23] MEDS: CIPROFLOXACIN HCL 500 MG TABLET PO SCH (21:05)
[2019-10-24] MEDS: OXYCODONE-ACETAMINOPHEN 5-325 MG TABLET PO PRN ×4 (04:08→17:13)
[2019-10-24] MEDS: RIVAROXABAN 15 MG TABLET PO SCH ×2 (08:03→17:13)
[2019-10-24] MEDS: DOCUSATE SODIUM 100 MG CAPSULE PO SCH ×2 (09:43→17:13)
[2019-10-24] MEDS: FAMOTIDINE INJ/PF 20 MG/2 ML SDV IV SCH ×2 (09:44→21:45)
[2019-10-24] MEDS: CIPROFLOXACIN HCL 500 MG TABLET PO SCH ×2 (09:44→21:46)
--- NOTE | 2019-10-24 17:11 | PDOC PROGRESS REPORT ---
Subjective Progress Note for:: 10/24/19 Reason For Visit: POSTOPERAVTIVE DVT RIGHT LOWER EXTREMITY 10/24/2019 DVT right lower extremity. 8 days postop from her right knee arthroplasty Physical Exam Vital Signs: Temp Pulse Resp BP Pulse Ox 97.5 F 74 18 96/55 L 98 10/24/19 10:52 10/24/19 10:52 10/24/19 10:52 10/24/19 10:52 10/24/19 10:52 Intake & Output 10/23/19 10/24/19 10/25/19 06:59 06:59 06:59 Intake Total 1027 2040 Output Total 2100 4200 Balance -1073 -2160 Weight 111.1 kg 110.3 kg General appearance: PRESENT: no acute distress Respiratory exam: PRESENT: clear to auscultation samia. ABSENT: rales, rhonchi, wheezes Cardiovascular exam: PRESENT: RRR. ABSENT: diastolic murmur, rubs, systolic murmur Extremities exam: PRESENT: other - Less redness less edema to the right calf, reports less pain Neurological exam: PRESENT: alert, awake, oriented to person, oriented to place, oriented to time, oriented to situation, CN II-XII grossly intact. ABSENT: motor sensory deficit Psychiatric exam: PRESENT: appropriate affect, normal mood. ABSENT: homicidal ideation, suicidal ideation Results Laboratory Results: 10/23/19 04:10 10/23/19 04:10 Assessment and Plan - Diagnosis (1) Deep vein thrombosis Is this a current diagnosis for this admission?: Yes (2) UTI (urinary tract infection) due to urinary indwelling Vo catheter Qualifiers: Indwelling urinary catheter type: indwelling urethral catheter Encounter type: initial encounter Qualified Code(s): T83.511A - Infection and inflammatory reaction due to indwelling urethral catheter, initial encounter; N39.0 - Urinary tract infection, site not specified Is this a current diagnosis for this admission?: Yes (3) Arthritis of right knee Is this a current diagnosis for this admission?: Yes (4) Neurogenic dysfunction of the urinary bladder Is this a current diagnosis for this admission?: Yes (5) Postoperative pain of right knee Is this a current diagnosis for this admission?: Yes - Plan Summary Summary: Patient will be admitted to the medical floor on observation status. He will receive morphine sulfate 2 to 4 mg IV every 2 hours on an as-needed basis for control of his pain. His right lower extremity will be elevated as much as possible to help reduce discomfort. student services counselor will be consulted to help find an appropriate rehabilitation location for this patient. Patient will be continued on Xarelto 15 mg p.o. twice daily through his initial therapy course and then converted to 20 mg p.o. daily. He will receive routine symptomatic and supportive cares on the medical service. A UA, urine culture and a blood culture will be obtained. Patient was started empirically on meropenem as treatment for his healthcare associated urinary tract infection. 10/22/2019 Patient urine culture was pending WBCs are normal electrolytes are grossly normal Patient currently on Xarelto 10 mg twice daily as well as meropenem IV To DC patient as soon as we have discharge planning arranging his needs 10/23/2019 Continue patient over to p.o. Cipro Check PT/INR today To new physical therapy twice in the hospital for gait assistance Awaiting information from [employer] insurance considering [facility]p facility. Patient is medically stable for discharge home in my opinion Will need home physical therapy, continue Xarelto 20 mg twice daily and Cipro 500 mg twice daily White count is normal at 5800 ,electrolytes are normal 10/24/2019 Has been seen by physical therapy every day today he walked 40 feet Vital signs are stable to 97 5 White count 5800 hemoglobin up to 9.3 platelets 316,000 INR 1.6 Electrolytes are normal Urine cultures growing out 3 different bugs first Prote vulgaris Is waiting for usp facility, however due to the possibility of SPL in his urine patient may have to wait for a bed Patient may be discharged home before bed available - Time Time Spent with patient: 25-34 minutes
[2019-10-24] MEDS: ACETAMINOPHEN 325 MG TABLET PO PRN (21:45)
[2019-10-25] MEDS: ACETAMINOPHEN 325 MG TABLET PO PRN ×5 (02:23→21:43)
[2019-10-25] MEDS ORDERED: TRAMADOL HCL 50 MG TABLET PO PRN (03:26)
[2019-10-25] MEDS: RIVAROXABAN 15 MG TABLET PO SCH ×2 (07:59→17:37)
--- NOTE | 2019-10-25 10:08 | PDOC PROGRESS REPORT ---
Subjective Progress Note for:: 10/25/19 Reason For Visit: POSTOPERAVTIVE DVT RIGHT LOWER EXTREMITY 10/25/2019 Patient was admitted for a simple DVT of the right lower extremity. Due to patient have an dwelling Vo catheter his urine is infected as usual Indwelling Vo catheter was changed approximately 48 hours ago by nursing. Physical Exam Vital Signs: Temp Pulse Resp BP Pulse Ox 98.1 F 76 16 96/58 L 97 10/24/19 20:07 10/24/19 20:07 10/24/19 20:07 10/24/19 20:07 10/24/19 20:07 Intake & Output 10/24/19 10/25/19 10/26/19 06:59 06:59 06:59 Intake Total 2040 720 Output Total 4200 4100 Balance -2160 -3380 Weight 110.3 kg 109.6 kg General appearance: PRESENT: no acute distress Respiratory exam: PRESENT: clear to auscultation samia. ABSENT: rales, rhonchi, wheezes Cardiovascular exam: PRESENT: RRR. ABSENT: diastolic murmur, rubs, systolic murmur Extremities exam: PRESENT: other - Right knee appears to be clean with no sign of infection from injury. No redness and only minimal edema to the right calf. Significantly improved. She however states that it hurts a rate deal with palpation even light palpation Neurological exam: PRESENT: alert, awake, oriented to person, oriented to place, oriented to time, oriented to situation, CN II-XII grossly intact. ABSENT: mot or sensory deficit Psychiatric exam: PRESENT: appropriate affect, normal mood. ABSENT: homicidal ideation, suicidal ideation Results Laboratory Results: 10/23/19 04:10 10/23/19 04:10 Assessment and Plan - Diagnosis (1) Deep vein thrombosis Is this a current diagnosis for this admission?: Yes (2) UTI (urinary tract infection) due to urinary indwelling Vo catheter Qualifiers: Indwelling urinary catheter type: indwelling urethral catheter Encounter type: initial encounter Qualified Code(s): T83.511A - Infection and inflammatory reaction due to indwelling urethral catheter, initial encounter; N39.0 - Urinary tract infection, site not specified Is this a current diagnosis for this admission?: Yes (3) Arthritis of right knee Is this a current diagnosis for this admission?: Yes (4) Neurogenic dysfunction of the urinary bladder Is this a current diagnosis for this admission?: Yes (5) Postoperative pain of right knee Is this a current diagnosis for this admission?: Yes - Plan Summary Summary: Patient will be admitted to the medical floor on observation status. He will receive morphine sulfate 2 to 4 mg IV every 2 hours on an as-needed basis for control of his pain. His right lower extremity will be elevated as much as possible to help reduce discomfort. business services administrator will be consulted to help find an appropriate rehabilitation location for this patient. Patient will be continued on Xarelto 15 mg p.o. twice daily through his initial therapy course and then converted to 20 mg p.o. daily. He will receive routine symptomatic and supportive cares on the medical service. A UA, urine culture and a blood culture will be obtained. Patient was started empirically on meropenem as treatment for his healthcare associated urinary tract infection. 10/22/2019 Patient urine culture was pending WBCs are normal electrolytes are grossly normal Patient currently on Xarelto 10 mg twice daily as well as meropenem IV To DC patient as soon as we have discharge planning arranging his needs 10/23/2019 Continue patient over to p.o. Cipro Check PT/INR today To new physical therapy twice in the hospital for gait assistance Awaiting information from [employer] insurance considering care home facility. Patient is medically stable for discharge home in my opinion Will need home physical therapy, continue Xarelto 20 mg twice daily and Cipro 500 mg twice daily White count is normal at 5800 ,electrolytes are normal 10/24/2019 Has been seen by physical therapy every day today he walked 40 feet Vital signs are stable to 97 5 White count 5800 hemoglobin up to 9.3 platelets 316,000 INR 1.6 Electrolytes are normal Urine cultures growing out 3 different bugs first Proteus vulgaris Is waiting for care home facility, however due to the possibility of SPL in his urine patient may have to wait for a bed Patient may be discharged home before bed available
[2019-10-25] MEDS: FAMOTIDINE INJ/PF 20 MG/2 ML SDV IV SCH ×2 (10:19→21:42)
[2019-10-25] MEDS: DOCUSATE SODIUM 100 MG CAPSULE PO SCH ×2 (10:19→17:37)
[2019-10-25] MEDS: CIPROFLOXACIN HCL 500 MG TABLET PO SCH ×2 (10:19→21:43)
[2019-10-26] MEDS: ACETAMINOPHEN 325 MG TABLET PO PRN ×3 (03:28→20:11)
[2019-10-26] MEDS: RIVAROXABAN 15 MG TABLET PO SCH ×2 (08:55→16:11)
[2019-10-26] MEDS: FAMOTIDINE INJ/PF 20 MG/2 ML SDV IV SCH ×2 (09:40→21:25)
[2019-10-26] MEDS: CIPROFLOXACIN HCL 500 MG TABLET PO SCH ×2 (09:40→21:25)
[2019-10-26] MEDS: DOCUSATE SODIUM 100 MG CAPSULE PO SCH ×2 (09:40→17:26)
--- NOTE | 2019-10-26 10:41 | PDOC PROGRESS REPORT ---
Subjective Progress Note for:: 10/26/19 Reason For Visit: POSTOPERAVTIVE DVT RIGHT LOWER EXTREMITY 10/26/2019 DVT of the right lower extremity diagnosed on 10/21/2019. Patient was placed on Xarelto 15 mg twice daily Patient also put on Cipro on 23 October for complicated UTI secondary to indwelling urinary catheter Physical Exam Vital Signs: Temp Pulse Resp BP Pulse Ox 97.5 F 81 16 110/72 97 10/25/19 23:39 10/25/19 23:39 10/25/19 23:39 10/25/19 23:39 10/25/19 23:39 Intake & Output 10/25/19 10/26/19 10/27/19 06:59 06:59 06:59 Intake Total 720 702 Output Total 4100 4150 Balance -5620 -2951 Weight 109.6 kg 109.6 kg General appearance: PRESENT: no acute distress Respiratory exam: PRESENT: clear to auscultation samia. ABSENT: rales, rhonchi, wheezes Cardiovascular exam: PRESENT: RRR. ABSENT: diastolic murmur, rubs, systolic murmur Extremities exam: PRESENT: other - No redness of the right knee, no redness of the right calf, no edema, Neurological exam: PRESENT: alert, awake, oriented to person, oriented to place, oriented to time, oriented to situation, CN II-XII grossly intact. ABSENT: motor sensory deficit Psychiatric exam: PRESENT: other Results Laboratory Results: 10/23/19 04:10 10/23/19 04:10 10/22/19 05:29 Vo Catheter Urine Culture - Final Proteus Vulgaris Providencia Stuartii Pseudomonas Aeruginosa Klebsiella Pneumoniae Assessment and Plan - Diagnosis (1) Deep vein thrombosis Is this a current diagnosis for this admission?: Yes (2) UTI (urinary tract infection) due to urinary indwelling Vo catheter Qualifiers: Indwelling urinary catheter type: indwelling urethral catheter Encounter type: initial encounter Qualified Code(s): T83.511A - Infection and inflammatory reaction due to indwelling urethral catheter, initial encounter; N39.0 - Urinary tract infection, site not specified Is this a current diagnosis for this admission?: Yes (3) Arthritis of right knee Is this a current diagnosis for this admission?: Yes (4) Neurogenic dysfunction of the urinary bladder Is this a current diagnosis for this admission?: Yes (5) Postoperative pain of right knee Is this a current diagnosis for this admission?: Yes - Plan Summary Summary: Patient will be admitted to the medical floor on observation status. He will receive morphine sulfate 2 to 4 mg IV every 2 hours on an as-needed basis for control of his pain. His right lower extremity will be elevated as much as possible to help reduce discomfort. clinical services manager will be consulted to help find an appropriate rehabilitation location for this patient. Patient will be continued on Xarelto 15 mg p.o. twice daily through his initial therapy course and then converted to 20 mg p.o. daily. He will receive routine symptomatic and supportive cares on the medical service. A UA, urine culture and a blood culture will be obtained. Patient was started empirically on meropenem as treatment for his healthcare associated urinary tract infection. 10/22/2019 Patient urine culture was pending WBCs are normal electrolytes are grossly normal Patient currently on Xarelto 10 mg twice daily as well as meropenem IV To DC patient as soon as we have discharge planning arranging his needs 10/23/2019 Continue patient over to p.o. Cipro Check PT/INR today To new physical therapy twice in the hospital for gait assistance Awaiting information from [employer] considering halfway facility. Patient is medically stable for discharge home in my opinion Will need home physical therapy, continue Xarelto 20 mg twice daily and Cipro 500 mg twice daily White count is normal at 5800 ,electrolytes are normal 10/24/2019 Has been seen by physical therapy every day today he walked 40 feet Vital signs are stable to 97 5 White count 5800 hemoglobin up to 9.3 platelets 316,000 INR 1.6 Electrolytes are normal Urine cultures growing out 3 different bugs first Proteus vulgaris Is waiting for halfway facility, however due to the possibility of SPL in his urine patient may have to wait for a bed Patient may be discharged home before bed available 10/25/2019 No significant changes waiting on discharge planning and financial acceptance by the state for halfway home placement/rehab 10/26/2019 No temperature in fact he has had no fever since he has been admitted Pulse 81 blood pressure 110/72 Patient will need to be either discharged home tomorrow or to halfway facility with rehab As seen by physical therapy 48 hours ago who recommended continuing PT OT upon discharge 1 time per day 2 to 5 days/week Patient is currently on [id number] pain medication - Time Time Spent with patient: 15-24 minutes
[2019-10-26] MEDS: LOPERAMIDE HCL 2 MG CAPSULE PO PRN ×2 (16:11→20:11)
[2019-10-27] MEDS: LOPERAMIDE HCL 2 MG CAPSULE PO PRN (04:09)
[2019-10-27] MEDS: ACETAMINOPHEN 325 MG TABLET PO PRN (04:09)
[2019-10-27] MEDS: DOCUSATE SODIUM 100 MG CAPSULE PO SCH ×2 (09:01→17:07)
[2019-10-27] MEDS: CIPROFLOXACIN HCL 500 MG TABLET PO SCH (09:08)
[2019-10-27] MEDS: FAMOTIDINE INJ/PF 20 MG/2 ML SDV IV SCH (09:08)
[2019-10-27] MEDS: RIVAROXABAN 15 MG TABLET PO SCH ×2 (09:08→17:08)
--- NOTE | 2019-10-27 14:29 | Progress Note ---
Provider Note Provider Note: 10/27/2019 Patient requires 30 days or less of prison facility
--- NOTE | 2019-10-27 15:22 | PDOC TRANSFER SUMMARY ---
Impression - Admit/DC Date/PCP Admission Date/Primary Care Provider: 10/21/19 23:24 ELSA AGUILERA MD Discharge Date: 10/27/19 - Discharge Diagnosis (1) Deep vein thrombosis Is this a current diagnosis for this admission?: Yes (2) UTI (urinary tract infection) due to urinary indwelling Vo catheter Is this a current diagnosis for this admission?: Yes (3) Arthritis of right knee Is this a current diagnosis for this admission?: Yes (4) Neurogenic dysfunction of the urinary bladder Is this a current diagnosis for this admission?: Yes (5) Postoperative pain of right knee Is this a current diagnosis for this admission?: Yes (6) Anemia Is this a current diagnosis for this admission?: Yes (7) Myelitis Is this a current diagnosis for this admission?: Yes (8) UTI (urinary tract infection) Is this a current diagnosis for this admission?: Yes - Assessment Summary: Patient will be admitted to the medical floor on observation status. He will receive morphine sulfate 2 to 4 mg IV every 2 hours on an as-needed basis for control of his pain. His right lower extremity will be elevated as much as possible to help reduce discomfort. veterans services specialist will be consulted to help find an appropriate rehabilitation location for this patient. Patient will be continued on Xarelto 15 mg p.o. twice daily through his initial therapy course and then converted to 20 mg p.o. daily. He will receive routine symptomatic and supportive cares on the medical service. A UA, urine culture and a blood culture will be obtained. Patient was started empirically on meropenem as treatment for his healthcare associated urinary tract infection. 10/22/2019 Patient urine culture was pending WBCs are normal electrolytes are grossly normal Patient currently on Xarelto 10 mg twice daily as well as meropenem IV To DC patient as soon as we have discharge planning arranging his needs 10/23/2019 Continue patient over to p.o. Cipro Check PT/INR today To new physical therapy twice in the hospital for gait assistance Awaiting information from [employer] considering detention facility. Patient is medically stable for discharge home in my opinion Will need home physical therapy, continue Xarelto 20 mg twice daily and Cipro 500 mg twice daily White count is normal at 5800 ,electrolytes are normal 10/24/2019 Has been seen by physical therapy every day today he walked 40 feet Vital signs are stable to 97 5 White count 5800 hemoglobin up to 9.3 platelets 316,000 INR 1.6 Electrolytes are normal Urine cultures growing out 3 different bugs first Prote vulgaris Is waiting for detention facility, however due to the possibility of SPL in his urine patient may have to wait for a bed Patient may be discharged home before bed available 10/25/2019 No significant changes waiting on discharge planning and financial acceptance by the state for detention home placement/rehab 10/26/2019 No temperature in fact he has had no fever since he has been admitted Pulse 81 blood pressure 110/72 Patient will need to be either discharged home tomorrow or to detention facility with rehab As seen by physical therapy 48 hours ago who recommended continuing PT OT upon discharge 1 time per day 2 to 5 days/week Patient is currently on [id number]-[id number] pain medication 10/27/2019 Will be discharged today to detention facility for continued physical therapy Patient is to be on Eliquis 20 mg daily and finish out his Cipro for his UTI otherwise was resume his previous meds - Additional Information Resuscitation Status: Full Code Discharge Diet: As Tolerated Discharge Activity: Balance Activity w/Rest Referrals: ELSA AGUILERA MD [Primary Care Provider] - Follow up as needed (LEFT MESSAGE WITH THE PROVIDER FOR FOLLOW UP APPT) Prescriptions: Ciprofloxacin HCl [Cipro 500 mg Tablet] 500 mg PO Q12 7 Days #14 tablet Apixaban [Eliquis 5 mg Tablet] 20 mg PO DAILY 30 Days #120 tablet Home Medications: Aspirin [Adult Low Dose Aspirin EC] 81 mg PO DAILY 10/22/19 Oxycodone HCl [Oxy-Ir 5 mg Tablet] 5 mg PO Q6HP PRN 10/22/19 Apixaban [Eliquis 5 mg Tablet] 20 mg PO DAILY 30 Days #120 tablet 10/27/19 Ciprofloxacin HCl [Cipro 500 mg Tablet] 500 mg PO Q12 7 Days #14 tablet 10/27/19 History of Present Illiness History of Present Illness: TONY CORTEZ is a 49 year old male Physical Exam Vital Signs: Temp Pulse Resp BP Pulse Ox 98.3 F 76 16 106/63 100 10/27/19 11:09 10/27/19 11:09 10/27/19 11:09 10/27/19 11:09 10/27/19 11:09 Intake & Output 10/26/19 10/27/19 10/28/19 06:59 06:59 06:59 Intake Total 702 0150 1104 Output Total 2197 4510 Balance -1548 -800 1104 Weight 109.6 kg 107.8 kg Results Laboratory Results: WBC 5.8 10^3/uL (4.0-10.5) 10/23/19 04:10 RBC 3.47 10^6/uL (4.35-5.55) L 10/23/19 04:10 Hgb 9.3 g/dL (13.5-17.0) L 10/23/19 04:10 Hct 28.0 % (37.9-51.0) L 10/23/19 04:10 MCV 81 fl (80-97) 10/23/19 04:10 MCH 26.9 pg (27.0-33.4) L 10/23/19 04:10 MCHC 33.4 g/dL (32.0-36.0) 10/23/19 04:10 RDW 18.9 % (11.5-14.0) H 10/23/19 04:10 Plt Count 316 10^3/uL (150-450) 10/23/19 04:10 Lymph % (Auto) 19.2 % (13-45) 10/21/19 17:52 [place] % (Auto) 8.4 % (3-13) 10/21/19 17:52 Eos % (Auto) 7.4 % (0-6) H 10/21/19 17:52 Baso % (Auto) 0.7 % (0-2) 10/21/19 17:52 Absolute Neuts (auto) 4.1 10^3/uL (1.7-8.2) 10/21/19 17:52 Absolute Lymphs (auto) 1.2 10^3/uL (0.5-4.7) 10/21/19 17:52 Absolute Monos (auto) 0.5 10^3/uL (0.1-1.4) 10/21/19 17:52 Absolute Eos (auto) 0.5 10^3/uL (0.0-0.6) 10/21/19 17:52 Absolute Basos (auto) 0.0 10^3/uL (0.0-0.2) 10/21/19 17:52 Seg Neutrophils % 64.3 % (42-78) 10/21/19 17:52 PT 19.2 SEC (11.4-15.4) H 10/23/19 14:49 INR 1.60 10/23/19 14:49 APTT 41.5 SEC (23.5-35.8) H 10/23/19 14:49 D-Dimer 3.54 ug/mL (0.00-0.50) H 10/21/19 17:52 Sodium 139.1 mmol/L (137-145) 10/23/19 04:10 Potassium 4.0 mmol/L (3.6-5.0) 10/23/19 04:10 Chloride 103 mmol/L (98-107) 10/23/19 04:10 Carbon Dioxide 31 mmol/L (22-30) H 10/23/19 04:10 Anion Gap 5 (5-19) 10/23/19 04:10 BUN 8 mg/dL (7-20) 10/23/19 04:10 Creatinine 0.66 mg/dL (0.52-1.25) 10/23/19 04:10 Est GFR ( Amer) > 60 (>60) 10/23/19 04:10 Est GFR (MDRD) Non-Af > 60 (>60) 10/23/19 04:10 Glucose 97 mg/dL (75-110) 10/23/19 04:10 Calcium 8.8 mg/dL (8.4-10.2) 10/23/19 04:10 Magnesium 2.0 mg/dL (1.6-2.3) 10/23/19 04:10 Total Bilirubin 0.8 mg/dL (0.2-1.3) 10/21/19 17:52 Direct Bilirubin 0.2 mg/dL (0.0-0.4) 10/21/19 17:52 Neonat Total Bilirubin Not Reportable 10/21/19 17:52 Neonat Direct Bilirubin Not Reportable 10/21/19 17:52 Neonat Indirect Bili Not Reportable 10/21/19 17:52 AST 19 U/L (17-59) 10/21/19 17:52 ALT 18 U/L (<50) 10/21/19 17:52 Alkaline Phosphatase 89 U/L (38-126) 10/21/19 17:52 Total Protein 5.8 g/dL (6.3-8.2) L 10/21/19 17:52 Albumin 3.2 g/dL (3.5-5.0) L 10/21/19 17:52 Urine Color YELLOW 10/22/19 05:29 Urine Appearance TURBID 10/22/19 05:29 Urine pH 6.0 (5.0-9.0) 10/22/19 05:29 Ur Specific [place] 1.011 10/22/19 05:29 Urine Protein 100 mg/dL (NEGATIVE) H 10/22/19 05:29 Urine Glucose (UA) NEGATIVE mg/dL (NEGATIVE) 10/22/19 05:29 Urine Ketones NEGATIVE mg/dL (NEGATIVE) 10/22/19 05:29 Urine Blood SMALL (NEGATIVE) H 10/22/19 05:29 Urine Nitrite POSITIVE (NEGATIVE) H 10/22/19 05:29 Urine Bilirubin NEGATIVE (NEGATIVE) 10/22/19 05:29 Urine Urobilinogen 4.0 mg/dL (<2.0) H 10/22/19 05:29 Ur Leukocyte Esterase LARGE (NEGATIVE) H 10/22/19 05:29 Urine WBC (Auto) >182 /HPF 10/22/19 05:29 Urine RBC (Auto) 8 /HPF 10/22/19 05:29 Urine Bacteria (Auto) 3+ /HPF 10/22/19 05:29 Urine WBC Clumps MANY /HPF 10/22/19 05:29 U Non-Squamous Epis Auto 1 /HPF 10/22/19 05:29 Urine Mucus (Auto) FEW /LPF 10/22/19 05:29 Urine Ascorbic Acid NEGATIVE (NEGATIVE) 10/22/19 05:29 Stroke Is this a Stroke Patient?: No Acute Heart Failure - Is this a Heart Failure Patient?: No
[2019-10-27 15:37] VITALS: BP 104/61
== END 2019-10-27 17:50 ==
LOC: ER 16:56 → EH 23:24 → 4N 10-22 01:37
PROVIDERS: ADMIT Emergency Medicine; ATTEND Emergency Medicine
DX: T84.86XA Thrombosis due to internal orthopedic prosthetic devices, implants and grafts, initial encounter (principal); I82.411 Acute embolism and thrombosis of right femoral vein; I82.431 Acute embolism and thrombosis of right popliteal vein; Y83.8 Other surgical procedures as the cause of abnormal reaction of the patient, or of later complication, without mention of misadventure at the time of the procedure; Z96.651 Presence of right artificial knee joint; T83.511A Infection and inflammatory reaction due to indwelling urethral catheter, initial encounter; Y84.6 Urinary catheterization as the cause of abnormal reaction of the patient, or of later complication, without mention of misadventure at the time of the procedure; B96.5 Pseudomonas (aeruginosa) (mallei) (pseudomallei) as the cause of diseases classified elsewhere; B96.1 Klebsiella pneumoniae [K. pneumoniae] as the cause of diseases classified elsewhere; B96.89 Other specified bacterial agents as the cause of diseases classified elsewhere; N31.9 Neuromuscular dysfunction of bladder, unspecified; G89.18 Other acute postprocedural pain; M13.861 Other specified arthritis, right knee; M25.561 Pain in right knee; D62 Acute posthemorrhagic anemia; G37.3 Acute transverse myelitis in demyelinating disease of central nervous system; Z82.49 Family history of ischemic heart disease and other diseases of the circulatory system; Z90.49 Acquired absence of other specified parts of digestive tract; Z75.1 Person awaiting admission to adequate facility elsewhere; Z60.2 Problems related to living alone; Z79.899 Other long term (current) drug therapy; Z86.718 Personal history of other venous thrombosis and embolism
CPT/HCPCS: 99285; 36415 ×2; 87040; 87086; 83735; 85025; 85027; 85610; 85730; 87088; 80048; 80053; 81001; 87186; 85379; 93971 ×2; 97110 ×2; 97116 ×3; 97163; G0378 ×8; A9270 ×29; J2270; J3490 ×5; S0028 ×6; J2185 ×2

== ENCOUNTER 2019-11-29 15:34 | Emergency (ER) | payer MEDICARE ==
[2019-11-29] MEDS ORDERED: MORPHINE SULFATE 10 MG/ML INJ IV ONE ×2 (16:17→17:50)
[2019-11-29] MEDS ORDERED: ONDANSETRON HCL INJ/PF 4 MG/2 ML SDV IV ONE (16:17)
--- NOTE | 2019-11-29 16:32 | ER Document Report ---
ED General - General Chief Complaint: Abdominal Pain Stated Complaint: ABDOMINAL PAIN Time Seen by Provider: 11/29/19 15:53 Primary Care Provider: MACEHLLE GANDARA MD [Primary Care Provider] - Follow up as needed Notes: 49-year-old male with history of obstruction and gastric bypass presents for abdominal pain and no bowel movement for 1 1.5 weeks. Patient states he has been taking his Senokot with little relief. Patient states he has a history of neurogenic bowel and bladder. Patient also states associated nausea. Patient denies any vomiting. Patient states he is not passing gas. Patient states he has had an obstruction in the past that "almost required surgery." Patient had a gastric bypass in 2007. Patient also has a history of cholecystectomy. TRAVEL OUTSIDE OF THE [place] IN LAST 30 DAYS: No - Related Data Allergies/Adverse Reactions: No Known Allergies Allergy (Verified 09/09/19 12:30) Past Medical History - Social History Smoking Status: Smoker,Current Status Unk Chew tobacco use (# tins/day): No Frequency of alcohol use: None Drug Abuse: None Family History: Hypertension. denies: CAD, DM, Malignancy Patient has suicidal ideation: No Patient has homicidal ideation: No - Past Medical History Cardiac Medical History: Reports: Hx DVT Denies: Hx Atrial Fibrillation, Hx Congestive Heart Failure, Hx Coronary Artery Disease, Hx Heart Attack, Hx Hypercholesterolemia, Hx Hypertension Pulmonary Medical History: Denies: Hx Asthma, Hx Bronchitis, Hx COPD, Hx Sleep Apnea Neurological Medical History: Denies: Hx Cerebrovascular Accident, Hx Seizures Endocrine Medical History: Denies: Hx Diabetes Mellitus Type 1, Hx Diabetes Mellitus Type 2, Hx Hyperthyroidism, Hx Hypothyroidism Renal/ Medical History: Reports: Hx Kidney Stones. Denies: Hx Benign Prostatic Hyperplasia, Hx End Stage Renal Disease, Hx Peritoneal Dialysis GI Medical History: Denies: Hx Cirrhosis, Hx Crohn's Disease, Hx Gastroesophageal Reflux Disease, Hx Hepatitis, Hx Hiatal Hernia, Hx Irritable Bowel, Hx Liver Failure, Hx Pancreatitis, Hx Ulcer Musculoskeletal Medical History: Reports Hx Arthritis, Denies Hx Fibromyalgia, Denies Hx Gout, Denies Hx Muscular Dystrophy Skin Medical History: Denies Hx Eczema, Denies Hx Psoriasis Psychiatric Medical History: Reports: Hx Bipolar Disorder, Hx Borderline Personality Disorder, Hx Depression, Hx Post Traumatic Stress Disorder, Hx Schizophrenia Traumatic Medical History: Reports: Hx Fractures - left tibia Infectious Medical History: Denies: Hx Hepatitis Past Surgical History: Reports: Hx Cholecystectomy, Hx Genitourinary Surgery - Suprapubic catheter, Hx Orthopedic Surgery - left ankle, left shoulder, right knee, neck. Denies: Hx Appendectomy, Hx Bowel Surgery, Hx Colostomy, Hx Coronary Artery Bypass Graft, Hx Gastric Bypass Surgery, Hx Herniorrhaphy, Hx Pacemaker, Hx Tonsillectomy - Immunizations Immunizations up to date: Yes Hx Diphtheria, Pertussis, Tetanus Vaccination: Yes Review of Systems - Review of Systems Notes: Constitutional: Negative for fever. HENT: Negative for sore throat. Eyes: Negative for visual changes. Cardiovascular: Negative for chest pain. Respiratory: Negative for shortness of breath. Gastrointestinal: Positive for abdominal pain and constipation. Negative for vomiting or diarrhea. Genitourinary: Negative for dysuria. Musculoskeletal: Negative for back pain. Skin: Negative for rash. Neurological: Negative for headaches, weakness or numbness. 10 point ROS negative except as marked above and in HPI. Physical Exam - Vital signs Vitals: Temp Pulse Resp BP Pulse Ox 98.9 F 77 18 108/78 100 11/29/19 15:45 11/29/19 15:45 11/29/19 15:45 11/29/19 15:45 11/29/19 15:45 - Notes Notes: GENERAL: Well-appearing, well-nourished and in no acute distress. HEAD: Atraumatic, normocephalic. EYES: Extraocular movements intact, sclera anicteric, conjunctiva are normal. NECK: Normal range of motion, supple without lymphadenopathy or JVD. LUNGS: Breath sounds clear to auscultation bilaterally and equal. No wheezes rales or rhonchi. HEART: Regular rate and rhythm without murmurs, rubs or gallops. ABDOMEN: Soft, diffusely tender.. No guarding, no rebound. No masses appreciated. EXTREMITIES: Normal range of motion, no pitting or edema. No clubbing or cyanosis. NEUROLOGICAL: Cranial nerves II through XII grossly intact. Normal speech, normal gait. PSYCH: Normal mood, normal affect. SKIN: Warm, Dry, normal turgor, no rashes or lesions noted. Course - Re-evaluation Re-evalutation: 11/29/19 nontoxic, well-appearing 49-year-old male presents for abdominal pain and no bowel movement for 1.5 weeks. Patient states he is not passing gas. Patient states he has a history of neurogenic bowel/bladder, bowel obstruction, and gastric bypass. Patient also has a history of cholecystectomy. Abdomen soft diffusely tender. No guarding or rebound. Nonsurgical abdomen. KUB was ordered. CBC, CMP, lipase, and lactic was also ordered. CT abdomen/pelvis with p.o. and IV contrast was also ordered. 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 11/29/19 20:[address] scan with Dr. Faye, who recommends treating constipation and having pt follow up with PCP in [address] scan for mesenteric panniculitis. Strict return precautions given. Pt given prescriptions for fleet enema, magnesium citrate, bentyl, and zofran. All questions/concerns addressed prior to discharge. - Vital Signs Vital signs: Temp Pulse Resp BP Pulse Ox 98.3 F 75 20 114/75 98 11/29/19 19:12 11/29/19 19:12 11/29/19 19:12 11/29/19 19:12 11/29/19 19:12 - Laboratory Result Diagrams: 11/29/19 16:22 11/29/19 16:22 Laboratory results interpreted by me: 11/29/19 11/29/19 16:22 17:09 Hgb 12.6 L MCH 26.2 L RDW 18.0 H Leukocyte Esterase Rfl LARGE H Discharge - Discharge Clinical Impression: Constipation Qualifiers: Constipation type: unspecified constipation type Qualified Code(s): K59.00 - Constipation, unspecified Abdominal pain Qualifiers: Abdominal location: generalized Qualified Code(s): R10.84 - Generalized abdominal pain Condition: Stable Disposition: HOME, SELF-CARE Additional Instructions: Your CT scan shows constipation without obstruction. It also showed possible mesenteric panniculitis which the radiologist recommends repeat CT in 3 months. Please follow-up with your primary care doctor to make sure that this gets done. Please use enema and magnesium citrate as prescribed. Please follow-up with your primary care doctor in 2 to 3 days. Return to ER for any worsening symptoms, including worsening abdominal pain, inability to pass gas, vomiting, fever, chest pain, shortness of breath, or any other symptoms that are concerning to you. Prescriptions: Ondansetron [Zofran Odt 4 mg Tablet] 4 mg PO Q4HP PRN #30 tab.rapdis PRN Reason: Dicyclomine HCl [Bentyl 20 mg Tablet] 20 mg PO QID #40 tablet Magnesium Citrate [Citrate of Magnesia 296 ml Bottle] 296 ml PO DAILY #1 bottle Sodium Phosphate,[place]-Dibasic [Fleet Enema] 133 ml RC DAILY #1 enema Referrals: MACHELLE GANDARA MD [Primary Care Provider] - Follow up in 3-5 days
[2019-11-29 16:38] LABS: ABSOLUTE BASOPHILS # (AUTO) 0.1 10^3/uL (0.0-0.2); ABSOLUTE EOSINOPHILS # (AUTO) 0.3 10^3/uL (0.0-0.6); ABSOLUTE LYMPHOCYTES (AUTO) 1.1 10^3/uL (0.5-4.7); ABSOLUTE MONOCYTES (AUTO) 0.6 10^3/uL (0.1-1.4); ABSOLUTE NEUT (AUTO) 6.3 10^3/uL (1.7-8.2); BASOPHILS % (AUTO) 1.2 % (0-2); EOSINOPHILS % (AUTO) 3.6 % (0-6); HEMATOCRIT 38.2 % (37.9-51.0); HEMOGLOBIN 12.6 g/dL (13.5-17.0); LYMPHOCYTES % (AUTO) 13.5 % (13-45); MEAN CORPUSCULAR HEMOGLOBIN 26.2 pg (27.0-33.4); MEAN CORPUSCULAR HGB CONC 32.9 g/dL (32.0-36.0); MEAN CORPUSCULAR VOLUME 80 fl (80-97); MONOCYTES % (AUTO) 7.7 % (3-13); PLATELET COUNT 339 10^3/uL (150-450); RED BLOOD COUNT 4.79 10^6/uL (4.35-5.55); TOTAL CELLS COUNTED % (AUTO) 100 %; WHITE BLOOD COUNT 8.5 10^3/uL (4.0-10.5)
--- NOTE | 2019-11-29 16:51 | RADIOLOGY REPORT (SQ) ---
EXAM DESCRIPTION: KUB/ABDOMEN (SINGLE VIEW) COMPLETED DATE/TIME: 11/29/2019 4:18 pm REASON FOR STUDY: abd pain, no BM in 1.5 weeks COMPARISON: 09/12/2019 NUMBER OF VIEWS: One view. TECHNIQUE: Supine radiographic image of the abdomen acquired. LIMITATIONS: None. FINDINGS: BOWEL GAS PATTERN: Normal bowel gas pattern. No dilated loops. CONSTIPATION: moderate CALCIFICATIONS: No suspicious calcifications. SOFT TISSUES: No gross mass or suggestion of organomegaly. HARDWARE: Cholecystectomy clips. BONES: No acute fracture. No worrisome bone lesions. OTHER: No other significant finding. IMPRESSION: NO RADIOGRAPHIC EVIDENCE FOR ACUTE ABDOMINAL DISEASE. Moderate constipation. TECHNICAL DOCUMENTATION: JOB ID: [id number] [place]-72 2010 [employer]- All Rights Reserved Reading location - IP/workstation name: [email or web address]
[2019-11-29 16:53] LABS: ALBUMIN 3.7 g/dL (3.5-5.0); ALKALINE PHOSPHATASE 106 U/L (38-126); ANION GAP 7 (5-19); ASPARTATE AMINO TRANSFERASE 19 U/L (17-59); BILIRUBIN,TOTAL 0.4 mg/dL (0.2-1.3); BLOOD UREA NITROGEN 11 mg/dL (7-20); CARBON DIOXIDE 29 mmol/L (22-30); CHLORIDE 102 mmol/L (98-107); GLUCOSE 90 mg/dL (75-110); POTASSIUM 4.1 mmol/L (3.6-5.0); TOTAL PROTEIN 6.4 g/dL (6.3-8.2)
[2019-11-29 17:43] LABS: APPEARANCE,URINE CLEAR; BILIRUBIN,URINE NEGATIVE (NEGATIVE); CALCIUM OXALATE CRYSTALS,URINE RARE /HPF; COLOR,URINE YELLOW; GLUCOSE, URINE NEGATIVE (NEGATIVE); KETONES,URINE NEGATIVE (NEGATIVE); PROTEIN,URINE NEGATIVE (NEGATIVE); URINE SPECIFIC GRAVITY 1.009; UROBILINOGEN,URINE NEGATIVE mg/dL (<2.0)
[2019-11-29 18:00] LABS: URINE AMPHETAMINES SCREEN NEGATIVE; URINE BARBITURATES SCREEN NEGATIVE; URINE BENZODIAZEPINES SCREEN NEGATIVE; URINE COCAINE SCREEN NEGATIVE; URINE MARIJUANA (THC) SCREEN NEGATIVE; URINE METHADONE SCREEN NEGATIVE; URINE PHENCYCLIDINE SCREEN NEGATIVE
--- NOTE | 2019-11-29 19:44 | RADIOLOGY REPORT (SQ) ---
EXAM DESCRIPTION: CT ABD/PELVIS WITH IV ORAL COMPLETED DATE/TIME: 11/29/2019 6:42 pm REASON FOR STUDY: abd pain, no BM x 1.5 wk, hx obstruction COMPARISON: CT abdomen and pelvis 09/16/2019, 01/25/2019. Abdominal x-ray 11/29/2019. TECHNIQUE: CT scan of the abdomen and pelvis performed using helical scanning technique with dynamic intravenous contrast injection. No oral contrast. Images reviewed with lung, soft tissue, and bone windows. Reconstructed coronal and sagittal MPR images reviewed. Delayed images for evaluation of the urinary system also acquired. All images stored on PACS. All CT scanners at this facility use dose modulation, iterative reconstruction, and/or weight based d osing when appropriate to reduce radiation dose to as low as reasonably achievable (ALARA). [facility]: Dose Right [facility]: CareDose [facility]: Dose Right [facility]: Teradose 4D [facility]: [employer] CONTRAST TYPE AND DOSE: contrast/concentration: Isovue 350.00 mg/ml; Total Contrast Delivered: 100.0 ml; Total Saline Delivered: 72.0 ml RENAL FUNCTION: Creatinine 0.71. RADIATION DOSE: CT Rad equipment meets quality standard of care and radiation dose reduction techniq ues were employed. CTDIvol: 16.2 - 18.8 mGy. DLP: 2056 mGy-cm.. LIMITATIONS: Motion artifact. FINDINGS: LOWER CHEST: No consolidation or pleural effusion. LIVER: Normal size. No masses. No dilated ducts. SPLEEN: Normal size. No focal lesions. PANCREAS: No significant calcifications. No adjacent inflammation or peripancreatic fluid collections . Pancreatic duct not dilated. GALLBLADDER: Surgically absent. ADRENAL GLANDS: No significant masses or asymmetry. RIGHT KIDNEY AND URETER: No solid masses. No significant calcifications. No hydronephrosis or hyd roureter. LEFT KIDNEY AND URETER: No solid masses. No significant calcifications. No hydronephrosis or hydr oureter. AORTA AND VESSELS: No abdominal aortic aneurysm or acute dissection. RETROPERITONEUM: No retroperitoneal adenopathy, hemorrhage or masses. BOWEL AND PERITONEAL CAVITY: Oral contrast is noted within small bowel loops. Redemonstration of po stsurgical changes at the stomach and small bowel from prior gastric bypass. No dilated bowel loops to suggest obstruction. No free fluid or free air. There is increased density at the mesenteric fat within the upper abdomen with mildly enlarged mesenteric lymph nodes measuring up to 14 mm. APPENDIX: Normal. PELVIS: The urinary bladder is partially decompressed by a suprapubic catheter. There is a small edwin unt of air at the anterior superior aspect of the urinary bladder. ABDOMINAL WALL: No hernias. BONES: Degenerative changes at the spine. IMPRESSION: 1. No CT evidence for bowel obstruction. Postsurgical changes of prior gastric bypass s urgery. 2. Increased density within the mesenteric fat at the upper abdomen with mildly enlarged mesenteric l ymph nodes, may be secondary to mesenteric panniculitis. Followup CT in 3 months recommended to ensu re resolution exclude a different etiology. 3. Suprapubic catheter at the urinary bladder. Small amount of air at the urinary bladder, please co rrelate with recent instrumentation; if there is none, then emphysematous cystitis is in the differe ntial. TECHNICAL DOCUMENTATION: JOB ID: [id number] [place]-[id number] Quality ID # [id number]: Final reports with documentation of one or more dose reduction techniques (e.g., Au tomated exposure control, adjustment of the mA and/or kV according to patient size, use of iterative reconstruction technique) 2010 [employer]- All Rights Reserved Reading location - IP/workstation name: [email or web address]
[2019-11-29] MEDS ORDERED: MAGNESIUM CITRATE 296 ML BOTTLE PO ONE (19:58)
[2019-11-29 20:27] VITALS: BP 111/75
== END 2019-11-29 20:47 | disposition home or self-care (01) ==
LOC: ER 15:34
DX: K59.00 Constipation, unspecified (principal); R10.84 Generalized abdominal pain; F17.200 Nicotine dependence, unspecified, uncomplicated; Z86.718 Personal history of other venous thrombosis and embolism; Z98.84 Bariatric surgery status; Z90.49 Acquired absence of other specified parts of digestive tract
CPT/HCPCS: 96376; 99284; 96374; 96375; 36415; 87086; 83605; 83690; 85025; 87088; 80053; 81001; 87186; 80307; 74018; 74177; A9270; J2270; J2405; J3490

== ENCOUNTER 2019-12-03 11:08 | Emergency (ER) | payer MEDICARE ==
--- NOTE | 2019-12-03 11:15 | ER Document Report ---
ED Medical Screen (RME) - General Chief Complaint: Problem with Urinary Catheter Stated Complaint: CATHETER ISSUE Time Seen by Provider: 12/03/19 11:13 Primary Care Provider: MACHELLE GANDARA MD [Primary Care Provider] - Follow up as needed TRAVEL OUTSIDE OF THE [place] IN LAST 30 DAYS: No - HPI Notes: 12/03/19 11:14 Patient is a 49-year-old male who presents for suprapubic catheter replacement after it fell out yesterday and the nurse was unable to put it back in at home. No fever. I have treated and performed a rapid initial assessment of this patient. A comprehensive ED assessment and evaluation of the patient, analysis of test results and completion of medical decision making process will be conducted by additional ED providers. PHYSICAL EXAMINATION: GENERAL: Well-appearing, well-nourished and in no acute distress. A&Ox4. Answers questions appropriately. - Related Data Allergies/Adverse Reactions: No Known Allergies Allergy (Verified 09/09/19 12:30) Past Medical History - Social History Family history: Reviewed & Not Pertinent - Past Medical History Cardiac Medical History: Reports: Hx DVT Denies: Hx Atrial Fibrillation, Hx Congestive Heart Failure, Hx Coronary Artery Disease, Hx Heart Attack, Hx Hypercholesterolemia, Hx Hypertension Pulmonary Medical History: Denies: Hx Asthma, Hx Bronchitis, Hx COPD, Hx Sleep Apnea Neurological Medical History: Denies: Hx Cerebrovascular Accident, Hx Seizures Endocrine Medical History: Denies: Hx Diabetes Mellitus Type 1, Hx Diabetes Mellitus Type 2, Hx Hyperthyroidism, Hx Hypothyroidism Renal/ Medical History: Reports: Hx Kidney Stones. Denies: Hx Benign Prostatic Hyperplasia, Hx End Stage Renal Disease, Hx Peritoneal Dialysis GI Medical History: Denies: Hx Cirrhosis, Hx Crohn's Disease, Hx Gastroesophageal Reflux Disease, Hx Hepatitis, Hx Hiatal Hernia, Hx Irritable Bowel, Hx Liver Failure, Hx Pancreatitis, Hx Ulcer Musculoskeltal Medical History: Reports Hx Arthritis, Denies Hx Fibromyalgia, Denies Hx Gout, Denies Hx Muscular Dystrophy Skin Medical History: Denies Hx Eczema, Denies Hx Psoriasis Psychiatric Medical History: Reports: Hx Bipolar Disorder, Hx Borderline Personality Disorder, Hx Depression, Hx Post Traumatic Stress Disorder, Hx Schizophrenia Traumatic Medical History: Reports: Hx Fractures - left tibia Infectious Medical History: Denies: Hx Hepatitis Past Surgical History: Reports: Hx Cholecystectomy, Hx Genitourinary Surgery - Suprapubic catheter, Hx Orthopedic Surgery - left ankle, left shoulder, right knee, neck. Denies: Hx Appendectomy, Hx Bowel Surgery, Hx Colostomy, Hx Coronary Artery Bypass Graft, Hx Gastric Bypass Surgery, Hx Herniorrhaphy, Hx Pacemaker, Hx Tonsillectomy - Immunizations Immunizations up to date: Yes Hx Diphtheria, Pertussis, Tetanus Vaccination: Yes Doctor's Discharge - Discharge Referrals: MACHELLE GANDARA MD [Primary Care Provider] - Follow up as needed
[2019-12-03] MEDS ORDERED: HYDROCODONE/ACETAMINOPHEN 5-325 MG TABLET PO ONE (11:40)
--- NOTE | 2019-12-03 11:47 | ER Document Report ---
ED GI/ - General Chief Complaint: Problem with Urinary Catheter Stated Complaint: CATHETER ISSUE Time Seen by Provider: 12/03/19 11:13 Primary Care Provider: MACHELLE GANDARA MD [NO LOCAL MD] - Follow up as needed Notes: HPI: 49-year-old male who presents today stating he was using his wheelchair when it tugged his Vo suprapubic catheter which then got removed. No pain, fevers, or vomiting. He states urine has been dribbling from the site since. He states that the bulb was broke when the Vo was removed ROS: See HPI All other review of systems reviewed and otherwise negative Reviewed vital signs and nursing note as charted by RN. PHYSICAL EXAM: ABD/GI: Vo insertion site present. No obvious discharge. No obvious surrounding cellulitis or induration TRAVEL OUTSIDE OF THE [place] IN LAST 30 DAYS: No - Related Data Allergies/Adverse Reactions: No Known Allergies Allergy (Verified 12/03/19 11:21) Home Medications: pt denies Past Medical History - Social History Smoking Status: Never Smoker Chew tobacco use (# tins/day): No Frequency of alcohol use: None Drug Abuse: None Family History: Hypertension. denies: CAD, DM, Malignancy Patient has suicidal ideation: No Patient has homicidal ideation: No - Past Medical History Cardiac Medical History: Reports: Hx DVT Denies: Hx Atrial Fibrillation, Hx Congestive Heart Failure, Hx Coronary Artery Disease, Hx Heart Attack, Hx Hypercholesterolemia, Hx Hypertension Pulmonary Medical History: Denies: Hx Asthma, Hx Bronchitis, Hx COPD, Hx Sleep Apnea Neurological Medical History: Denies: Hx Cerebrovascular Accident, Hx Seizures Endocrine Medical History: Denies: Hx Diabetes Mellitus Type 1, Hx Diabetes Mellitus Type 2, Hx Hyperthyroidism, Hx Hypothyroidism Renal/ Medical History: Reports: Hx Kidney Stones. Denies: Hx Benign Prostatic Hyperplasia, Hx End Stage Renal Disease, Hx Peritoneal Dialysis GI Medical History: Denies: Hx Cirrhosis, Hx Crohn's Disease, Hx Gastroesophageal Reflux Disease, Hx Hepatitis, Hx Hiatal Hernia, Hx Irritable Bowel, Hx Liver Failure, Hx Pancreatitis, Hx Ulcer Musculoskeletal Medical History: Reports Hx Arthritis, Denies Hx Fibromyalgia, Denies Hx Gout, Denies Hx Muscular Dystrophy Skin Medical History: Denies Hx Eczema, Denies Hx Psoriasis Psychiatric Medical History: Reports: Hx Bipolar Disorder, Hx Borderline Personality Disorder, Hx Depression, Hx Post Traumatic Stress Disorder, Hx Schizophrenia Traumatic Medical History: Reports: Hx Fractures - left tibia Infectious Medical History: Denies: Hx Hepatitis Past Surgical History: Reports: Hx Cholecystectomy, Hx Genitourinary Surgery - Suprapubic catheter, Hx Orthopedic Surgery - left ankle, left shoulder, right knee, neck. Denies: Hx Appendectomy, Hx Bowel Surgery, Hx Colostomy, Hx Coronary Artery Bypass Graft, Hx Gastric Bypass Surgery, Hx Herniorrhaphy, Hx Pacemaker, Hx Tonsillectomy - Immunizations Immunizations up to date: Yes Hx Diphtheria, Pertussis, Tetanus Vaccination: Yes Physical Exam - Vital signs Vitals: Temp Pulse Resp BP Pulse Ox 97.8 F 76 16 121/81 100 12/03/19 11:17 12/03/19 11:17 12/03/19 11:17 12/03/19 11:17 12/03/19 11:17 Course - Re-evaluation Re-evalutation: 12/03/19 11:46 The general surgeon came to bedside and reinserted the suprapubic Vo catheter. Good urine output. Patient will be discharged home with strict return precautions. - Vital Signs Vital signs: Temp Pulse Resp BP Pulse Ox 97.8 F 76 16 121/81 100 12/03/19 11:17 12/03/19 11:17 12/03/19 11:17 12/03/19 11:17 12/03/19 11:17 Discharge - Discharge Clinical Impression: Vo catheter problem Qualifiers: Encounter type: initial encounter Qualified Code(s): T83.9XXA - Unspecified complication of genitourinary prosthetic device, implant and graft, initial encounter Condition: Good Disposition: HOME, SELF-CARE Additional Instructions: Come back immediately for any increased trouble with your catheter, decreased flow, fevers or vomiting, discharge, or any other acute problems. Please follow-up with urology as discussed. Referrals: MACHELLE GANDARA MD [NO LOCAL MD] - Follow up as needed
--- NOTE | 2019-12-03 12:17 | PDOC CONSULTATION ---
Consultation Consult Date: 12/03/19 Provider Consulted: CORY LOPEZ History of Present Illness Admission Date/PCP: ELSA AGUILERA MD Patient complains of: Accidental removal of suprapubic cystostomy catheter History of Present Illness: TONY CORTEZ is a 49 year old male, who has a suprapubic cystostomy catheter for the past 7 years used with a 16 [place] suprapubic catheter. According to th e patient, this will be catheter accidentally was pulled out yesterday evening, this morning the home health nurse try to reinsert it without success. The patient is in the emergency room in need of replacement of the suprapubic cystostomy catheter. Past Medical History Cardiac Medical History: Reports: DVT Denies: Atrial Fibrillation, Congestive Heart Failure, Coronary Artery Disease, Myocardial Infarction, Hyperlipidema, Hypertension Pulmonary Medical History: Denies: Asthma, Bronchitis, Chronic Obstructive Pulmonary Disease (COPD), Sleep Apnea Neurological Medical History: Denies: Seizures Endocrine Medical History: Denies: Diabetes Mellitus Type 1, Diabetes Mellitus Type 2, Hyperthyroidism, Hypothyroidism Renal/ Medical History: Denies: End Stage Renal Disease GI Medical History: Denies: Cirrhosis, Crohn's Disease, Gastroesophageal Reflux Disease, Hepatitis, Hiatal Hernia Musculoskeltal Medical History: Reports: Arthritis Denies: Fibromyalgia, Gout Skin Medical History: Denies: Eczema, Psoriasis Psychiatric Medical History: Reports: Bipolar Disorder, Depression, Post Traumatic Stress Disorder Hematology: Denies: Anemia, Bleeding Tendencies Past Surgical History Past Surgical History: Reports: Cholecystectomy, Orthopedic Surgery - left ankle, left shoulder, right knee, neck Denies: Appendectomy, Colostomy, Coronary Artery Bypass Graft, Gastric Bypass Surgery, Herniorrhaphy, Pacemaker, Tonsillectomy Social History Smoking Status: Never Smoker Electronic Cigarette use?: No Frequency of Alcohol Use: Occasional Hx Recreational Drug Use: No Drugs: None Hx Prescription Drug Abuse: No Family History Family History: Hypertension. denies: CAD, DM, Malignancy Parental Family History Reviewed: No Children Family History Reviewed: No Sibling(s) Family History Reviewed.: No Medication/Allergy Home Medications: Aspirin [Adult Low Dose Aspirin EC] 81 mg PO DAILY 10/22/19 Oxycodone HCl [Oxy-Ir 5 mg Tablet] 5 mg PO Q6HP PRN 10/22/19 Apixaban [Eliquis 5 mg Tablet] 20 mg PO DAILY 30 Days #120 tablet 12/16/19 Ciprofloxacin HCl [Cipro 500 mg Tablet] 500 mg PO Q12 7 Days #14 tablet 10/27/19 Dicyclomine HCl [Bentyl 20 mg Tablet] 20 mg PO QID #40 tablet 11/29/19 Magnesium Citrate [Citrate of Magnesia 296 ml Bottle] 296 ml PO DAILY #1 bottle 11/29/19 Ondansetron [Zofran Odt 4 mg Tablet] 4 mg PO Q4HP PRN #30 tab.rapdis 11/29/19 Sodium Phosphate,[place]-Dibasic [Fleet Enema] 133 ml RC DAILY #1 enema 11/29/19 Allergies/Adverse Reactions: No Known Allergies Allergy (Verified 12/03/19 11:21) Physical Exam Vital Signs: Temp Pulse Resp BP Pulse Ox 97.8 F 76 16 121/81 100 12/03/19 11:17 12/03/19 11:17 12/03/19 11:17 12/03/19 11:17 12/03/19 11:17 Intake & Output 12/02/19 12/03/19 12/04/19 06:59 06:59 06:59 Weight 108.7 kg General appearance: PRESENT: no acute distress Head exam: PRESENT: atraumatic Eye exam: PRESENT: EOMI Mouth exam: PRESENT: neck supple Respiratory exam: PRESENT: clear to auscultation samia Cardiovascular exam: PRESENT: RRR GI/Abdominal exam: PRESENT: soft, other - Suprapubic area = presence of suprapubic catheter insertion site clean, without erythema, edema, or discharge, or urine Assessment & Plan - Diagnosis (1) Cystostomy Catheter malposition Is this a current diagnosis for this admission?: Yes - Plan Summary Plan Summary: Assessment: Suprapubic cystostomy catheter accidentally pulled out yesterday evening Home health nurse has attempted insertion unsuccessfully Plan: Insertion of 7 [place] suprapubic cystostomy catheter in the emergency room; This was attempted and was unsuccessful as attempted was made with a 16 [place] suprapubic catheter the ED Recommendation: Consultation with interventional radiology for fluoroscopic placement of suprapubic cystostomy catheter; if successful, the patient should be be transferred to another institution with urology services
--- NOTE | 2019-12-03 12:20 | Operative Report ---
Nonrecallable Operative Report DATE OF SURGERY: 12/03/19 PREOPERATIVE DIAGNOSIS: Malposition of suprapubic cystostomy catheter POSTOPERATIVE DIAGNOSIS: Same; occluded suprapubic cystostomy catheter tract OPERATION: Attempted placement of 16 Martiniquais suprapubic cystostomy catheter SURGEON: CORY LOPEZ TISSUE REMOVED OR ALTERED: Not applicable COMPLICATIONS: None ESTIMATED BLOOD LOSS: None INTRAOPERATIVE FINDINGS: Stenosed tract of the suprapubic cystostomy catheter PROCEDURE: The procedure was done at bedside in the emergency room department. The suprapubic cystostomy catheter area was prepped and draped in sterile fashion, a 16 Martiniquais suprapubic catheter was inserted through the old tract unsuccessfully. Despite multiple attempts, without forcing, the catheter could be not be inserted into the bladder. The procedure was aborted. The emergency room physician was recommended to either send the patient to radiology for fluoroscopic replacement of the prepubic cystostomy tube or to transfer the patient to an outside institution with urology services
[2019-12-03 13:29] VITALS: BP 116/72
--- NOTE | 2019-12-03 13:33 | RADIOLOGY REPORT (SQ) ---
EXAM DESCRIPTION: CHGE PERC TUBE/DRN CTH W COMPLETED DATE/TIME: 12/03/2019 1:17 pm REASON FOR STUDY: 20; suprapubic catheter replacement COMPARISON: CT abdomen pelvis dated 11/29/2019 FLUORO TIME: 1.7 minutes 1 images saved to PACS LIMITATIONS: None. PROCEDURE: After obtaining informed consent and explaining the risks and benefits of conscious sedat ion, the patient was brought to the special procedures suite and was placed supine on the fluoroscopy table. The patient was prepped and draped in the usual sterile fashion. 1% lidocaine was used for local anesthesia. Through the existing tract the bladder was cannulated. A guidewire was placed. Attempts at replacin g the 16 Dutch Vo catheter were unsuccessful. A 12 Dutch APD catheter was successfully placed i nto the bladder and formed. Contrast was injected demonstrating good positioning. The patient will need to to be brought back for up size. IMPRESSION: Successful replacement of the suprapubic catheter through existing tract. A 12 Dutch A PD was placed and formed as described. The patient will be brought back for up size. COMMENT: Patient medication list reviewed: Yes- Quality ID# 130:Eligible professional attests to doc umenting in the medical record they obtained, updated, or reviewed the patient's current medications. Quality ID #76: The patient was prepped and draped using maximum sterile barrier technique including cap, mask, sterile gown, sterile gloves, a large sterile sheet, hand hygiene, and 2% Chlorhexidine fo r cutaneous antisepsis. When ultrasound is used, sterile ultrasound techniques are followed requiring sterile gel and sterile probes. Quality ID 145: Final reports for procedures using fluoroscopy that document radiation exposure [place], or exposure time and number of fluorographic images (if radiation exposure indices are not avail able) TECHNICAL DOCUMENTATION: JOB ID: [id number] [employer]- All Rights Reserved rev Reading location - IP/workstation name: [email or web address]
== END 2019-12-03 13:29 | disposition home or self-care (01) ==
LOC: ER 11:08
DX: T83.020A Displacement of cystostomy catheter, initial encounter (principal); Y83.3 Surgical operation with formation of external stoma as the cause of abnormal reaction of the patient, or of later complication, without mention of misadventure at the time of the procedure
CPT/HCPCS: 99284; 75984; C1894; C1769; C1729; C1892; A9270

== ENCOUNTER 2019-12-05 07:24 | Day surgery (SDC) | payer MEDICARE ==
[2019-12-05 07:53] LABS: ABSOLUTE BASOPHILS # (AUTO) 0.1 10^3/uL (0.0-0.2); ABSOLUTE EOSINOPHILS # (AUTO) 0.3 10^3/uL (0.0-0.6); ABSOLUTE LYMPHOCYTES (AUTO) 1.3 10^3/uL (0.5-4.7); ABSOLUTE NEUT (AUTO) 8.6 10^3/uL (1.7-8.2); BASOPHILS % (AUTO) 0.8 % (0-2); EOSINOPHILS % (AUTO) 2.5 % (0-6); HEMATOCRIT 37.1 % (37.9-51.0); LYMPHOCYTES % (AUTO) 11.3 % (13-45); MEAN CORPUSCULAR HEMOGLOBIN 25.9 pg (27.0-33.4); MEAN CORPUSCULAR HGB CONC 32.5 g/dL (32.0-36.0); MEAN CORPUSCULAR VOLUME 80 fl (80-97); MONOCYTES % (AUTO) 9.1 % (3-13); PLATELET COUNT 412 10^3/uL (150-450); RED BLOOD COUNT 4.66 10^6/uL (4.35-5.55); RED CELL DISTRIBUTION WIDTH 17.6 % (11.5-14.0); SEGMENTED NEUTROPHILS % (AUTO) 76.3 % (42-78); TOTAL CELLS COUNTED % (AUTO) 100 %; WHITE BLOOD COUNT 11.3 10^3/uL (4.0-10.5)
[2019-12-05 08:00] LABS: INTERNATIONAL RATION (INR) 1.13; PROTHROMBIN TIME 14.6 SEC (11.4-15.4)
[2019-12-05 08:23] LABS: BLOOD UREA NITROGEN 10 mg/dL (7-20)
[2019-12-05] MEDS ORDERED: MIDAZOLAM 2 MG/2 ML INJ ONE (08:32)
[2019-12-05] MEDS ORDERED: FENTANYL CITRATE INJ/PF 100 MCG/2 ML AMPUL ONE (08:33)
[2019-12-05] MEDS ORDERED: LIDOCAINE 1% INJ-PF (10 MG/ML) 30 ML SDV ONE (08:33)
[2019-12-05] MEDS ORDERED: CEFAZOLIN INJ 1 GM VIAL ONE (08:33)
[2019-12-05 12:51] VITALS: BP 121/9
--- NOTE | 2019-12-05 15:55 | RADIOLOGY REPORT (SQ) ---
EXAM DESCRIPTION: GUIDANCE FLUOROSCOPIC; CHANGE BLADDER TUBE COMPLETED DATE/TIME: 12/05/2019 10:10 am REASON FOR STUDY: NEUROGENIC BLADDER, SUPRAPUBIC CATHETER REPLACEMENT COMPARISON: None. FLUOROSCOPY TIME: 7.6 minutes. TECHNIQUE: The procedure, risks, benefits, and alternatives were discussed with the patient in the p reprocedural area, and all questions were answered. Informed consent was obtained verbally and in wri ting. The patient was then brought to the procedural suite, positioned supine on the fluoroscopy table, and a time-out was performed. The suprapubic region and the external portion of the 12 Chinese suprapubi c catheter were subsequently prepped and draped with 2% chlorhexidine utilizing standard manager technical sales nique. After that, contrast was injected through the suprapubic catheter to confirm its proper posit ion within the lumen of the urinary bladder. The tissues around the suprapubic catheter were then an esthestized with 1% lidocaine ; after that, the suprapubic catheter was cut and removed over a 0.035 inch Amplatz wire. The percutaneous track into the urinary bladder was then dilated over the Amplatz wire with a 7 mm angioplasty balloon catheter. After that, a 20 Chinese peel-away sheath was advance d over the Amplatz wire into the lumen of the urinary bladder. A 16 Chinese Vo catheter was then a dvanced through the peel-away sheath/over the Amplatz wire into the lumen of the urinary bladder. Af ter that, the peel-away sheath and wire were removed and proper position of the Vo catheter was co nfirmed with an injection of contrast. The retention balloon of the Vo catheter was then insufflated with diluted contrast and afterwards a sterile dressing was applied over the external portion of the catheter. At the end of the procedure the patient's condition was unchanged from the preprocedural baseline. The patient tolerated the procedure well without immediate complication. IV conscious sedation was administered at the direction of the performing physician by a idalmis otto. 1 milligrams of Versed and 50 micrograms of fentanyl were administered. Physiologic monitoring was provided before, during, and after sedation. The total sedation time was 4 5 minutes. Documentation of [id number] time performing proceduralist spent monitoring the patient: 30 minutes. LIMITATIONS: None. PROCEDURE: See above. FINDINGS: Integrated into the Procedure. IMPRESSION: Successful exchange of a 12 Chinese suprapubic catheter for a 16 Chinese suprapubic cathet er. COMMENT: Patient medication list reviewed: Yes- Quality ID# 130:Eligible professional attests to doc umenting in the medical record they obtained, updated, or reviewed the patient's current medications. Quality ID 145: Final reports for procedures using fluoroscopy that document radiation exposure indic es, or exposure time and number of fluorographic images (if radiation exposure indices are not availa ble) TECHNICAL DOCUMENTATION: Job ID: [id number] [employer]- All Rights Reserved Reading location - IP/workstation name: [email or web address]
--- NOTE | 2019-12-05 15:55 | RADIOLOGY REPORT (SQ) ---
EXAM DESCRIPTION: GUIDANCE FLUOROSCOPIC; CHANGE BLADDER TUBE COMPLETED DATE/TIME: 12/05/2019 10:10 am REASON FOR STUDY: NEUROGENIC BLADDER, SUPRAPUBIC CATHETER REPLACEMENT COMPARISON: None. FLUOROSCOPY TIME: 7.6 minutes. TECHNIQUE: The procedure, risks, benefits, and alternatives were discussed with the patient in the p reprocedural area, and all questions were answered. Informed consent was obtained verbally and in wri ting. The patient was then brought to the procedural suite, positioned supine on the fluoroscopy table, and a time-out was performed. The suprapubic region and the external portion of the 12 [place] African suprapubi c catheter were subsequently prepped and draped with 2% chlorhexidine utilizing standard digital tech nique. After that, contrast was injected through the suprapubic catheter to confirm its proper posit ion within the lumen of the urinary bladder. The tissues around the suprapubic catheter were then an esthestized with 1% lidocaine ; after that, the suprapubic catheter was cut and removed over a 0.035 inch Amplatz wire. The percutaneous track into the urinary bladder was then dilated over the Amplatz wire with a 7 mm angioplasty balloon catheter. After that, a 20 [place] African peel-away sheath was advance d over the Amplatz wire into the lumen of the urinary bladder. A 16 Central African Vo catheter was then a dvanced through the peel-away sheath/over the Amplatz wire into the lumen of the urinary bladder. Af ter that, the peel-away sheath and wire were removed and proper position of the Vo catheter was co nfirmed with an injection of contrast. The retention balloon of the Vo catheter was then insufflated with diluted contrast and afterwards a sterile dressing was applied over the external portion of the catheter. At the end of the procedure the patient's condition was unchanged from the preprocedural baseline. The patient tolerated the procedure well without immediate complication. IV conscious sedation was administered at the direction of the performing physician by a idalmis otto. 1 milligrams of Versed and 50 micrograms of fentanyl were administered. Physiologic monitoring was provided before, during, and after sedation. The total sedation time was 4 5 minutes. Documentation of [id number] time performing proceduralist spent monitoring the patient: 30 minutes. LIMITATIONS: None. PROCEDURE: See above. FINDINGS: Integrated into the Procedure. IMPRESSION: Successful exchange of a 12 Central African suprapubic catheter for a 16 [place] African suprapubic cathet er. COMMENT: Patient medication list reviewed: Yes- Quality ID# 130:Eligible professional attests to doc umenting in the medical record they obtained, updated, or reviewed the patient's current medications. Quality ID 145: Final reports for procedures using fluoroscopy that document radiation exposure indic es, or exposure time and number of fluorographic images (if radiation exposure indices are not availa ble) TECHNICAL DOCUMENTATION: Job ID: [id number] [employer]- All Rights Reserved Reading location - IP/workstation name: [email or web address]
== END 2019-12-05 12:00 | disposition home or self-care (01) ==
LOC: CCL 07:24
PROVIDERS: ATTEND Radiology Diagnostic Radiology
DX: N31.9 Neuromuscular dysfunction of bladder, unspecified (principal); Z45.2 Encounter for adjustment and management of vascular access device; T83.9XXA Unspecified complication of genitourinary prosthetic device, implant and graft, initial encounter; Y84.6 Urinary catheterization as the cause of abnormal reaction of the patient, or of later complication, without mention of misadventure at the time of the procedure; Z86.718 Personal history of other venous thrombosis and embolism
CPT/HCPCS: 36415; 84520; 82565; 85025; 85610; 85730; 51705; 77001; C1725; C1887; C1769; Q9967; J2250; J0690; J3010; J3490

== ENCOUNTER 2019-12-09 09:46 | Emergency (ER) | payer MEDICARE ==
--- NOTE | 2019-12-09 11:26 | ER Document Report ---
ED Medical Screen (RME) - General Chief Complaint: Problem with Urinary Catheter Stated Complaint: URINARY PROBLEMS Time Seen by Provider: 12/09/19 11:19 Primary Care Provider: ELSA AGUILERA MD [Primary Care Provider] - Follow up as needed TRAVEL OUTSIDE OF THE [place] IN LAST 30 DAYS: No - HPI Notes: 12/09/19 11:24 49-year-old male presents emergency room for evaluation of his urinary catheter that has not been draining for the last 5 days as well as having diarrhea. Patient does have a history of C. difficile. Patient is on Macrobid for UTI. Patient states last week they had to go to interventional radiology to put in the urinary catheter, since that time he has been urinating from his penis and not through the catheter. Denies any fevers or chills. Reports intermittent abdominal pain. I have greeted and performed a rapid initial assessment of this patient. A comprehensive ED assessment and evaluation of the patient, analysis of test results and completion of the medical decision making process will be conducted by additional ED providers. PHYSICAL EXAMINATION: GENERAL: Well-appearing, well-nourished and in no acute distress. NECK: Normal range of motion CV: s1, s2 regular LUNGS: No respiratory distress Musculoskeletal: Normal range of motion NEUROLOGICAL: Normal speech, normal gait. SKIN: Warm, Dry, normal turgor, no rashes or lesions noted. - Related Data Allergies/Adverse Reactions: No Known Allergies Allergy (Verified 12/09/19 11:23) Home Medications: no changes since sunday visit Past Medical History - Social History Frequency of alcohol use: None Drug Abuse: None Family history: Reviewed & Not Pertinent - Past Medical History Cardiac Medical History: Reports: Hx DVT Denies: Hx Atrial Fibrillation, Hx Congestive Heart Failure, Hx Coronary Artery Disease, Hx Heart Attack, Hx Hypercholesterolemia, Hx Hypertension Pulmonary Medical History: Denies: Hx Asthma, Hx Bronchitis, Hx COPD, Hx Pneumonia, Hx Sleep Apnea Neurological Medical History: Denies: Hx Cerebrovascular Accident, Hx Seizures Endocrine Medical History: Denies: Hx Diabetes Mellitus Type 1, Hx Diabetes Mellitus Type 2, Hx Hyperthyroidism, Hx Hypothyroidism Renal/ Medical History: Reports: Hx Kidney Stones. Denies: Hx Benign Pro static Hyperplasia, Hx End Stage Renal Disease, Hx Peritoneal Dialysis GI Medical History: Denies: Hx Cirrhosis, Hx Crohn's Disease, Hx Gastroesophageal Reflux Disease, Hx Hepatitis, Hx Hiatal Hernia, Hx Irritable Bowel, Hx Liver Failure, Hx Pancreatitis, Hx Ulcer Musculoskeltal Medical History: Reports Hx Arthritis, Denies Hx Fibromyalgia, Denies Hx Gout, Denies Hx Muscular Dystrophy Skin Medical History: Denies Hx Eczema, Denies Hx Psoriasis Psychiatric Medical History: Reports: Hx Bipolar Disorder, Hx Borderline Personality Disorder, Hx Depression, Hx Post Traumatic Stress Disorder, Hx Schizophrenia Traumatic Medical History: Reports: Hx Fractures - left tibia Infectious Medical History: Denies: Hx Hepatitis Past Surgical History: Reports: Hx Cholecystectomy, Hx Genitourinary Surgery - Suprapubic catheter, Hx Orthopedic Surgery - left ankle, left shoulder, right knee, neck. Denies: Hx Appendectomy, Hx Bowel Surgery, Hx Colostomy, Hx Coronary Artery Bypass Graft, Hx Gastric Bypass Surgery, Hx Herniorrhaphy, Hx Pacemaker, Hx Tonsillectomy - Immunizations Immunizations up to date: Yes Hx Diphtheria, Pertussis, Tetanus Vaccination: Yes Physical Exam - Vital signs Vitals: Temp Pulse Resp BP Pulse Ox 97.8 F 87 16 131/76 H 100 12/09/19 09:52 12/09/19 09:52 12/09/19 09:52 12/09/19 09:52 12/09/19 09:52 Course - Vital Signs Vital signs: Temp Pulse Resp BP Pulse Ox 97.8 F 87 16 131/76 H 100 12/09/19 09:52 12/09/19 09:52 12/09/19 09:52 12/09/19 09:52 12/09/19 09:52 Doctor's Discharge - Discharge Referrals: ELSA AGUILERA MD [Primary Care Provider] - Follow up as needed
[2019-12-09 12:37] LABS: ABSOLUTE BASOPHILS # (AUTO) 0.1 10^3/uL (0.0-0.2); ABSOLUTE EOSINOPHILS # (AUTO) 0.3 10^3/uL (0.0-0.6); ABSOLUTE LYMPHOCYTES (AUTO) 1.1 10^3/uL (0.5-4.7); ABSOLUTE MONOCYTES (AUTO) 0.5 10^3/uL (0.1-1.4); ABSOLUTE NEUT (AUTO) 6.9 10^3/uL (1.7-8.2); BASOPHILS % (AUTO) 0.9 % (0-2); HEMATOCRIT 40.5 % (37.9-51.0); HEMOGLOBIN 13.1 g/dL (13.5-17.0); LYMPHOCYTES % (AUTO) 12.8 % (13-45); MEAN CORPUSCULAR HEMOGLOBIN 25.8 pg (27.0-33.4); MEAN CORPUSCULAR HGB CONC 32.4 g/dL (32.0-36.0); MEAN CORPUSCULAR VOLUME 80 fl (80-97); MONOCYTES % (AUTO) 5.2 % (3-13); PLATELET COUNT 476 10^3/uL (150-450); RED BLOOD COUNT 5.09 10^6/uL (4.35-5.55); RED CELL DISTRIBUTION WIDTH 17.9 % (11.5-14.0); SEGMENTED NEUTROPHILS % (AUTO) 78.1 % (42-78); TOTAL CELLS COUNTED % (AUTO) 100 %; WHITE BLOOD COUNT 8.9 10^3/uL (4.0-10.5)
--- NOTE | 2019-12-09 12:42 | ER Document Report ---
ED GI/ - General Chief Complaint: Problem with Urinary Catheter Stated Complaint: URINARY PROBLEMS Time Seen by Provider: 12/09/19 11:19 Primary Care Provider: ELSA AGUILERA MD [Primary Care Provider] - Follow up in 3-5 days TRAVEL OUTSIDE OF THE [place] IN LAST 30 DAYS: No - HPI Notes: 12/09/19 13:20 49-year-old male to the emergency department with complaints of no urine output from his suprapubic cath since it was replaced by IR on December 05. 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 He states that he has not seen any urine output into his bag since he had the suprapubic cath placed. He states he is having a little bit of urine from his penis. He states that he has also been having some diarrhea. He was placed on Macrobid and has been taking it for about 5 days now. He states he does have a history of C. difficile. He states he has not had a fever, chills. He states that he has bladder pain. He states it feels like bladder spasms. He denies any chest pain, shortness breath, nausea, vomiting. - Related Data Allergies/Adverse Reactions: No Known Allergies Allergy (Verified 12/09/19 11:23) Home Medications: no changes since sunday visit Past Medical History - Social History Smoking Status: Never Smoker Frequency of alcohol use: None Drug Abuse: None Family History: Hypertension. denies: CAD, DM, Malignancy Patient has suicidal ideation: No Patient has homicidal ideation: No - Past Medical History Cardiac Medical History: Reports: Hx DVT Denies: Hx Atrial Fibrillation, Hx Congestive Heart Failure, Hx Coronary Artery Disease, Hx Heart Attack, Hx Hypercholesterolemia, Hx Hypertension Pulmonary Medical History: Denies: Hx Asthma, Hx Bronchitis, Hx COPD, Hx Pneumonia, Hx Sleep Apnea Neurological Medical History: Denies: Hx Cerebrovascular Accident, Hx Seizures Endocrine Medical History: Denies: Hx Diabetes Mellitus Type 1, Hx Diabetes Mellitus Type 2, Hx Hyperthyroidism, Hx Hypothyroidism Renal/ Medical History: Reports: Hx Kidney Stones. Denies: Hx Benign Prostatic Hyperplasia, Hx End Stage Renal Disease, Hx Peritoneal Dialysis GI Medical History: Denies: Hx Cirrhosis, Hx Crohn's Disease, Hx Gastroesophageal Reflux Disease, Hx Hepatitis, Hx Hiatal Hernia, Hx Irritable Bowel, Hx Liver Failure, Hx Pancreatitis, Hx Ulcer Musculoskeletal Medical History: Reports Hx Arthritis, Denies Hx Fibromyalgia, Denies Hx Gout, Denies Hx Muscular Dystrophy Skin Medical History: Denies Hx Eczema, Denies Hx Psoriasis Psychiatric Medical History: Reports: Hx Bipolar Disorder, Hx Borderline Personality Disorder, Hx Depression, Hx Post Traumatic Stress Disorder, Hx Schizophrenia Traumatic Medical History: Reports: Hx Fractures - left tibia Infectious Medical History: Denies: Hx Hepatitis Past Surgical History: Reports: Hx Cholecystectomy, Hx Genitourinary Surgery - Suprapubic catheter, Hx Orthopedic Surgery - left ankle, left shoulder, right knee, neck. Denies: Hx Appendectomy, Hx Bowel Surgery, Hx Colostomy, Hx Coronary Artery Bypass Graft, Hx Gastric Bypass Surgery, Hx Herniorrhaphy, Hx Pacemaker, Hx Tonsillectomy - Immunizations Immunizations up to date: Yes Hx Diphtheria, Pertussis, Tetanus Vaccination: Yes Physical Exam - Vital signs Vitals: Temp Pulse Resp BP Pulse Ox 97.8 F 87 16 131/76 H 100 12/09/19 09:52 12/09/19 09:52 12/09/19 09:52 12/09/19 09:52 12/09/19 09:52 Course - Re-evaluation Re-evalutation: 12/09/19 13:[address] Guallpa, ER attending. We will attempt irrigation of the Vo and obtain a bladder scan post void. If we have success with that and the catheter starts to run then we will discharge the patient. Updated patient about the plan and he is agrees. 12/09/19 13:59 RN successfully irrigated the Vo without any resistance and no pain with the patient. However Vo still continues to not drain. We are obtaining bladder scanner to evaluate bladder volume. 12/09/19 14:54 Dr. Guallpa went and saw patient with intent to replace suprapubic cath. He ultrasound the patient and was able to actually get the current suprapubic cath to start draining. We will discharge the patient home and sent home with Ditropan. Patient agrees with the plan; primary care follow-up. - Vital Signs Vital signs: Temp Pulse Resp BP Pulse Ox 97.9 F 73 16 120/77 100 12/09/19 15:12 12/09/19 15:12 12/09/19 15:12 12/09/19 15:12 12/09/19 15:12 - Laboratory Result Diagrams: 12/09/19 12:11 12/09/19 12:11 Laboratory results interpreted by me: 12/09/19 12/09/19 12/09/19 12:11 12:11 12:11 Hgb 13.1 L MCH 25.8 L RDW 17.9 H Plt Count 476 H Lymph % (Auto) 12.8 L Seg Neutrophils % 78.1 H Carbon Dioxide 32 H AST 16 L Alkaline Phosphatase 141 H Urine Protein 100 H Urine Glucose (UA) 150 H Urine Blood LARGE H Urine Nitrite POSITIVE H Ur Leukocyte Esterase MODERATE H Stool for White Cells 12/09/19 12:11 Hgb MCH RDW Plt Count Lymph % (Auto) Seg Neutrophils % Carbon Dioxide AST Alkaline Phosphatase Urine Protein Urine Glucose (UA) Urine Blood Urine Nitrite Ur Leukocyte Esterase Stool for White Cells MANY H Discharge - Discharge Clinical Impression: Mechanical complication of suprapubic catheter Qualifiers: Encounter type: initial encounter Qualified Code(s): T83.090A - Other mechanical complication of cystostomy catheter, initial encounter Diarrhea Qualifiers: Diarrhea type: unspecified type Qualified Code(s): R19.7 - Diarrhea, unspeci fied Condition: Stable Disposition: HOME, SELF-CARE Additional Instructions: Use Ditropan. Follow-up with primary care without fail. Continue to push fluids. Return if any worsening symptoms or problems with suprapubic catheter. We will call patient with results for C. difficile. Prescriptions: Oxybutynin Chloride [Ditropan 5 Mg Tablet] 5 mg PO BID #20 tablet Oxybutynin Chloride [Ditropan 5 Mg Tablet] 5 mg PO DAILY #10 tablet Referrals: ELSA AGUILERA MD [Primary Care Provider] - Follow up in 3-5 days
[2019-12-09 12:49] LABS: APPEARANCE,URINE CLOUDY; BILIRUBIN,URINE NEGATIVE (NEGATIVE); CALCIUM OXALATE CRYSTALS,URINE MANY /HPF; COLOR,URINE YELLOW; GLUCOSE, URINE 150 mg/dL (NEGATIVE); KETONES,URINE NEGATIVE (NEGATIVE); LEUKOCYTE ESTERASE,URINE MODERATE (NEGATIVE); NITRITE,URINE POSITIVE (NEGATIVE); PROTEIN,URINE 100 mg/dL (NEGATIVE); URINE SPECIFIC GRAVITY 1.013; UROBILINOGEN,URINE NEGATIVE mg/dL (<2.0)
[2019-12-09] MEDS ORDERED: MORPHINE SULFATE 10 MG/ML INJ IV ONE ×2 (12:53→14:16)
[2019-12-09 12:58] LABS: ALKALINE PHOSPHATASE 141 U/L (38-126); ANION GAP 7 (5-19); ASPARTATE AMINO TRANSFERASE 16 U/L (17-59); BILIRUBIN,TOTAL 0.4 mg/dL (0.2-1.3); BLOOD UREA NITROGEN 8 mg/dL (7-20); CALCIUM 9.9 mg/dL (8.4-10.2); CARBON DIOXIDE 32 mmol/L (22-30); CHLORIDE 99 mmol/L (98-107); GLUCOSE 96 mg/dL (75-110); POTASSIUM 4.6 mmol/L (3.6-5.0)
[2019-12-09] MEDS ORDERED: OXYBUTYNIN CHLORIDE 5 MG TABLET PO ONE (13:30)
[2019-12-09 15:13] VITALS: BP 120/77
[2019-12-09 15:37] LABS: C DIFFICILE GDH NEGATIVE (NEGATIVE)
== END 2019-12-09 15:11 | disposition home or self-care (01) ==
LOC: ER 09:46
DX: T83.090A Other mechanical complication of cystostomy catheter, initial encounter (principal); R19.7 Diarrhea, unspecified; N31.9 Neuromuscular dysfunction of bladder, unspecified
CPT/HCPCS: 96376; 99284; 96374; 36415; 87045; 89055; 87205; 83690; 85025; 80053; 81001; 87324; 87449; C1758; J2270; A9270

== ENCOUNTER 2019-12-18 14:38 | Emergency (ER) | payer MEDICARE ==
[2019-12-18] MEDS ORDERED: KETOROLAC TROMETHAMINE INJ/PF 30 MG/1 ML SDV IM ONE (16:03)
[2019-12-18] MEDS ORDERED: ONDANSETRON 4 MG TAB.RAPDIS PO ONE (16:03)
[2019-12-18] MEDS ORDERED: NORMAL SALINE 1000 ML 1,000 ML IV ONE (16:04)
--- NOTE | 2019-12-18 16:04 | ER Document Report ---
ED Medical Screen (RME) - General Chief Complaint: Nausea/Vomiting/Diarrhea Stated Complaint: NAUSEA,VOMITING,DIARRHEA Time Seen by Provider: 12/18/19 16:03 Primary Care Provider: ELSA AGUILERA MD [Primary Care Provider] - Follow up as needed Notes: Patient is a 49-year-old male with a history of neurogenic bladder with a suprapubic cath who presents emergency department with a chief complaint of bladder pain with nausea and vomiting. Patient reports he is had nausea and vomiting for about 2 days. Patient reports he feels like he is dehydrated and dry. Patient reports 3 episodes of vomiting and 3 episodes of diarrhea daily. Patient reports when he gets a bladder infection he does present with similar symptoms. Patient reports he does have a history of kidney stones but that this pain is different as it is just primarily in the suprapubic area. Patient reports chills without fever. Patient reports his catheter is flowing normally. TRAVEL OUTSIDE OF THE [place] IN LAST 30 DAYS: No - Related Data Allergies/Adverse Reactions: No Known Allergies Allergy (Verified 12/18/19 15:46) Past Medical History - Social History Chew tobacco use (# tins/day): No Frequency of alcohol use: None Drug Abuse: None Family history: Reviewed & Not Pertinent - Past Medical History Cardiac Medical History: Reports: Hx DVT Denies: Hx Atrial Fibrillation, Hx Congestive Heart Failure, Hx Coronary Artery Disease, Hx Heart Attack, Hx Hypercholesterolemia, Hx Hypertension Pulmonary Medical History: Denies: Hx Asthma, Hx Bronchitis, Hx COPD, Hx Pneumonia, Hx Sleep Apnea Neurological Medical History: Denies: Hx Cerebrovascular Accident, Hx Seizures Endocrine Medical History: Denies: Hx Diabetes Mellitus Type 1, Hx Diabetes Mellitus Type 2, Hx Hyperthyroidism, Hx Hypothyroidism Renal/ Medical History: Reports: Hx Kidney Stones. Denies: Hx Benign Prostatic Hyperplasia, Hx End Stage Renal Disease, Hx Peritoneal Dialysis GI Medical History: Denies: Hx Cirrhosis, Hx Crohn's Disease, Hx Gastroesophageal Reflux Disease, Hx Hepatitis, Hx Hiatal Hernia, Hx Irritable Bowel, Hx Liver Failure, Hx Pancreatitis, Hx Ulcer Musculoskeltal Medical History: Reports Hx Arthritis, Denies Hx Fibromyalgia, Denies Hx Gout, Denies Hx Muscular Dystrophy Skin Medical History: Denies Hx Eczema, Denies Hx Psoriasis Psychiatric Medical History: Reports: Hx Bipolar Disorder, Hx Borderline Personality Disorder, Hx Depression, Hx Post Traumatic Stress Disorder, Hx Schizophrenia Traumatic Medical History: Reports: Hx Fractures - left tibia Infectious Medical History: Denies: Hx Hepatitis Past Surgical History: Reports: Hx Cholecystectomy, Hx Genitourinary Surgery - Suprapubic catheter, Hx Orthopedic Surgery - left ankle, left shoulder, right knee, neck. Denies: Hx Appendectomy, Hx Bowel Surgery, Hx Colostomy, Hx Coronary Artery Bypass Graft, Hx Gastric Bypass Surgery, Hx Herniorrhaphy, Hx Pacemaker, Hx Tonsillectomy - Immunizations Immunizations up to date: Yes Hx Diphtheria, Pertussis, Tetanus Vaccination: Yes Physical Exam - Vital signs Vitals: Temp Pulse Resp BP Pulse Ox 99.3 F 95 16 128/81 H 97 12/18/19 14:50 12/18/19 14:50 12/18/19 14:50 12/18/19 14:50 12/18/19 14:50 Course - Re-evaluation Re-evalutation: 12/18/19 16:05 We will initiate medications, basic labs including a urinalysis. Patient nontoxic-appearing without significant tachycardia, hypotension or fever. I have greeted and performed a rapid initial assessment of this patient. A comprehensive ED assessment and evaluation of the patient, analysis of test results and completion of the medical decision making process will be conducted by additional ED providers. - Vital Signs Vital signs: Temp Pulse Resp BP Pulse Ox 99.3 F 95 16 128/81 H 97 12/18/19 14:50 12/18/19 14:50 12/18/19 14:50 12/18/19 14:50 12/18/19 14:50 Doctor's Discharge - Discharge Referrals: ELSA AGUILERA MD [Primary Care Provider] - Follow up as needed
[2019-12-18 17:36] LABS: ABSOLUTE BASOPHILS # (AUTO) 0.1 10^3/uL (0.0-0.2); ABSOLUTE EOSINOPHILS # (AUTO) 0.4 10^3/uL (0.0-0.6); ABSOLUTE LYMPHOCYTES (AUTO) 2.1 10^3/uL (0.5-4.7); ABSOLUTE MONOCYTES (AUTO) 0.7 10^3/uL (0.1-1.4); ABSOLUTE NEUT (AUTO) 5.7 10^3/uL (1.7-8.2); BASOPHILS % (AUTO) 1.4 % (0-2); EOSINOPHILS % (AUTO) 4.1 % (0-6); HEMATOCRIT 37.2 % (37.9-51.0); HEMOGLOBIN 12.1 g/dL (13.5-17.0); LYMPHOCYTES % (AUTO) 22.9 % (13-45); MEAN CORPUSCULAR HEMOGLOBIN 25.5 pg (27.0-33.4); MEAN CORPUSCULAR HGB CONC 32.6 g/dL (32.0-36.0); MEAN CORPUSCULAR VOLUME 78 fl (80-97); MONOCYTES % (AUTO) 8.2 % (3-13); PLATELET COUNT 358 10^3/uL (150-450); RED BLOOD COUNT 4.75 10^6/uL (4.35-5.55); RED CELL DISTRIBUTION WIDTH 17.5 % (11.5-14.0); SEGMENTED NEUTROPHILS % (AUTO) 63.4 % (42-78); TOTAL CELLS COUNTED % (AUTO) 100 %
[2019-12-18 17:45] LABS: APPEARANCE,URINE CLOUDY; BILIRUBIN,URINE NEGATIVE (NEGATIVE); COLOR,URINE YELLOW; GLUCOSE, URINE 50 mg/dL (NEGATIVE); KETONES,URINE NEGATIVE (NEGATIVE); LEUKOCYTE ESTERASE,URINE LARGE (NEGATIVE); NITRITE,URINE NEGATIVE (NEGATIVE); PROTEIN,URINE 30 mg/dL (NEGATIVE); URINE SPECIFIC GRAVITY 1.008; UROBILINOGEN,URINE NEGATIVE mg/dL (<2.0)
[2019-12-18 17:54] LABS: ALBUMIN 3.8 g/dL (3.5-5.0); ALKALINE PHOSPHATASE 122 U/L (38-126); ANION GAP 8 (5-19); ASPARTATE AMINO TRANSFERASE 17 U/L (17-59); BILIRUBIN,DIRECT 0.2 mg/dL (0.0-0.4); BILIRUBIN,TOTAL 0.3 mg/dL (0.2-1.3); BLOOD UREA NITROGEN 9 mg/dL (7-20); CALCIUM 9.2 mg/dL (8.4-10.2); CARBON DIOXIDE 28 mmol/L (22-30); CHLORIDE 103 mmol/L (98-107); GLUCOSE 78 mg/dL (75-110); POTASSIUM 4.1 mmol/L (3.6-5.0); TOTAL PROTEIN 6.8 g/dL (6.3-8.2)
[2019-12-18] MEDS ORDERED: PROMETHAZINE HCL INJ 25 MG/1 ML VIAL IV ONE (19:07)
[2019-12-18] MEDS ORDERED: DICYCLOMINE HCL INJ 20 MG/2 ML AMPULE IM ONE (19:07)
[2019-12-18] MEDS ORDERED: OXYBUTYNIN CHLORIDE 5 MG TABLET PO ONE (21:20)
[2019-12-18] MEDS ORDERED: DICYCLOMINE HCL 20 MG TABLET PO ONE (21:20)
[2019-12-18] MEDS ORDERED: OXYCODONE-ACETAMINOPHEN 5-325 MG TABLET PO ONE (22:23)
--- NOTE | 2019-12-18 22:26 | ER Document Report ---
ED GI/ - General Chief Complaint: Nausea/Vomiting/Diarrhea Stated Complaint: NAUSEA,VOMITING,DIARRHEA Time Seen by Provider: 12/18/19 16:03 Primary Care Provider: ELSA AGUILERA MD [Primary Care Provider] - Follow up tomorrow Notes: Patient is well-known to this department. Comes in today complaining of vomiting and diarrhea. Also with suprapubic pain. States that he was recently on Macrobid for a UTI. Has a suprapubic catheter that has been foul-smelling. States catheter was not changed recently. Patient with history of ESBL. No fever. No other complaints. Unknown sick contacts. TRAVEL OUTSIDE OF THE [place] IN LAST 30 DAYS: No - HPI Timing/Duration: Gradual Quality of pain: Achy, Dull Severity at maximum: Moderate Associated symptoms: Vomiting - Related Data Allergies/Adverse Reactions: No Known Allergies Allergy (Verified 12/18/19 15:46) Past Medical History - Social History Smoking Status: Unknown if Ever Smoked Chew tobacco use (# tins/day): No Frequency of alcohol use: None Drug Abuse: None Family History: Hypertension. denies: CAD, DM, Malignancy Patient has suicidal ideation: No Patient has homicidal ideation: No - Past Medical History Cardiac Medical History: Reports: Hx DVT Denies: Hx Atrial Fibrillation, Hx Congestive Heart Failure, Hx Coronary Artery Disease, Hx Heart Attack, Hx Hypercholesterolemia, Hx Hypertension Pulmonary Medical History: Denies: Hx Asthma, Hx Bronchitis, Hx COPD, Hx Pneumonia, Hx Sleep Apnea Neurological Medical History: Denies: Hx Cerebrovascular Accident, Hx Seizures Endocrine Medical History: Denies: Hx Diabetes Mellitus Type 1, Hx Diabetes Mellitus Type 2, Hx Hyperthyroidism, Hx Hypothyroidism Renal/ Medical History: Reports: Hx Kidney Stones. Denies: Hx Benign Prostatic Hyperplasia, Hx End Stage Renal Disease, Hx Peritoneal Dialysis GI Medical History: Denies: Hx Cirrhosis, Hx Crohn's Disease, Hx Gastroesophageal Reflux Disease, Hx Hepatitis, Hx Hiatal Hernia, Hx Irritable Bowel, Hx Liver Failure, Hx Pancreatitis, Hx Ulcer Musculoskeletal Medical History: Reports Hx Arthritis, Denies Hx Fibromyalgia, Denies Hx Gout, Denies Hx Muscular Dystrophy Skin Medical History: Denies Hx Eczema, Denies Hx Psoriasis Psychiatric Medical History: Reports: Hx Bipolar Disorder, Hx Borderline Personality Disorder, Hx Depression, Hx Post Traumatic Stress Disorder, Hx Schizophrenia Traumatic Medical History: Reports: Hx Fractures - left tibia Infectious Medical History: Denies: Hx Hepatitis Past Surgical History: Reports: Hx Cholecystectomy, Hx Genitourinary Surgery - Suprapubic catheter, Hx Orthopedic Surgery - left ankle, left shoulder, right knee, neck. Denies: Hx Appendectomy, Hx Bowel Surgery, Hx Colostomy, Hx Coron yang Artery Bypass Graft, Hx Gastric Bypass Surgery, Hx Herniorrhaphy, Hx Pacemaker, Hx Tonsillectomy - Immunizations Immunizations up to date: Yes Hx Diphtheria, Pertussis, Tetanus Vaccination: Yes Review of Systems - Review of Systems -: Yes All other systems reviewed and negative Physical Exam - Vital signs Vitals: Temp Pulse Resp BP Pulse Ox 99.3 F 95 16 128/81 H 97 12/18/19 14:50 12/18/19 14:50 12/18/19 14:50 12/18/19 14:50 12/18/19 14:50 Interpretation: Normal - General General appearance: Appears well, Alert - HEENT Head: Normocephalic, Atraumatic Eyes: Normal Pupils: PERRL - Respiratory Respiratory status: No respiratory distress Chest status: Nontender Breath sounds: Normal Chest palpation: Normal - Cardiovascular Rhythm: Regular Heart sounds: Normal auscultation Murmur: No - Abdominal Inspection: Normal Distension: No distension Bowel sounds: Normal Tenderness: Other - Mild suprapubic tenderness Organomegaly: No organomegaly - Back Back: Normal, Nontender - Extremities General upper extremity: Normal inspection, Nontender, Normal color, Normal ROM, Normal temperature General lower extremity: Normal inspection, Nontender, Normal color, Normal ROM, Normal temperature, Normal weight bearing. No: Martin's sign - Neurological Neuro grossly intact: Yes Cognition: Normal Orientation: AAOx4 [place] Coma Scale Eye Opening: Spontaneous Holly Coma Scale Verbal: Oriented [place] Coma Scale Motor: Obeys Commands Holly Coma Scale Total: 15 Speech: Normal Motor strength normal: LUE, RUE, LLE, RLE Sensory: Normal - Psychological Associated symptoms: Normal affect, Normal mood - Skin Skin Temperature: Warm Skin Moisture: Dry Skin Color: Normal Course - Re-evaluation Re-evalutation: 12/18/19 23:00 Patient received Phenergan with no further vomiting. No diarrhea here. Catheter change. Patient states that Bentyl did help with pain. Requesting morphine but will accept Percocet. Patient likely with chronic colonization from catheter. No fever today. Blood work benign. Will send urine culture and have him follow-up with his primary care doctor and urologist. Return if worsening or concerning symptoms. He is agreeable to this plan and stable at the time of discharge. - Vital Signs Vital signs: Temp Pulse Resp BP Pulse Ox 98.6 F 80 20 118/70 99 12/18/19 22:37 12/18/19 22:37 12/18/19 22:37 12/18/19 22:37 12/18/19 22:37 - Laboratory Result Diagrams: 12/18/19 17:00 12/18/19 17:00 Laboratory results interpreted by me: 12/18/19 12/18/19 17:00 17:00 Hgb 12.1 L Hct 37.2 L MCV 78 L MCH 25.5 L RDW 17.5 H Urine Protein 30 H Urine Glucose (UA) 50 H Urine Blood SMALL H Ur Leukocyte Esterase LARGE H Discharge - Discharge Clinical Impression: Vomiting Qualifiers: Vomiting type: unspecified Vomiting Intractability: non-intractable Nausea presence: with nausea Qualified Code(s): R11.2 - Nausea with vomiting, unspecified Abdominal pain Qualifiers: Abdominal location: lower abdomen, unspecified Qualified Code(s): R10.30 - Lower abdominal pain, unspecified Condition: Stable Disposition: HOME, SELF-CARE Instructions: Abdominal Pain ([facility]), Vomiting ([facility]) Prescriptions: Dicyclomine HCl [Bentyl 20 mg Tablet] 20 mg PO QID #40 tablet Promethazine HCl [Phenergan 25 mg Tablet] 1 tab PO Q6H PRN #20 tablet PRN Reason: Referrals: ELSA AGUILERA MD [Primary Care Provider] - Follow up tomorrow
[2019-12-18 22:40] VITALS: BP 118/70
== END 2019-12-18 22:37 | disposition home or self-care (01) ==
LOC: ER 14:38
DX: R11.2 Nausea with vomiting, unspecified (principal); R10.30 Lower abdominal pain, unspecified; R19.7 Diarrhea, unspecified; Z87.440 Personal history of urinary (tract) infections; Z87.442 Personal history of urinary calculi; Z43.6 Encounter for attention to other artificial openings of urinary tract; Z90.49 Acquired absence of other specified parts of digestive tract
CPT/HCPCS: 99284; 96372; 96361; 96374; 36415; 87086; 85025; 87088; 80053; 81001; 87186; A9270 ×4; J0500; J1885; J2550; J7030; J3490; S0119

== ENCOUNTER 2019-12-24 18:22 | Emergency (ER) | payer MEDICARE ==
--- NOTE | 2019-12-24 18:38 | ER Document Report ---
ED Medical Screen (RME) - General Stated Complaint: UNABLE TO WALK Time Seen by Provider: 12/24/19 18:36 Primary Care Provider: ELSA AGUILERA MD [Primary Care Provider] - Follow up as needed Mode of Arrival: Wheelchair Information source: Patient Notes: 49-year-old male presents emergency department with history of transverse myelitis with suprapubic catheter complaints of bilateral leg numbness difficult to walk. Reports symptoms started today. He reports he was able to walk out to the mailbox this morning to get his mail but on the way back he kind of fell down on his knees. Reports numbness now. Reports every now and then his legs will jerk. He reports no bowel movement for the past 3 to 4 days. Reports it feels like a flareup of his myelitis. Denies fever vomiting diarrhea. No complaints of trauma. I have greeted and performed a rapid initial assessment of this patient. A comprehensive ED assessment and evaluation of the patient, analysis of test results and completion of the medical decision making process will be conducted by additional ED providers. TRAVEL OUTSIDE OF THE [place] IN LAST 30 DAYS: No - Related Data Allergies/Adverse Reactions: No Known Allergies Allergy (Verified 12/24/19 18:38) Past Medical History - Social History Family history: Reviewed & Not Pertinent - Past Medical History Cardiac Medical History: Reports: Hx DVT Denies: Hx Atrial Fibrillation, Hx Congestive Heart Failure, Hx Coronary Artery Disease, Hx Heart Attack, Hx Hypercholesterolemia, Hx Hypertension Pulmonary Medical History: Denies: Hx Asthma, Hx Bronchitis, Hx COPD, Hx Pneumonia, Hx Sleep Apnea Neurological Medical History: Denies: Hx Cerebrovascular Accident, Hx Seizures Endocrine Medical History: Denies: Hx Diabetes Mellitus Type 1, Hx Diabetes Mellitus Type 2, Hx Hyperthyroidism, Hx Hypothyroidism Renal/ Medical History: Reports: Hx Kidney Stones. Denies: Hx Benign Prostatic Hyperplasia, Hx End Stage Renal Disease, Hx Peritoneal Dialysis GI Medical History: Denies: Hx Cirrhosis, Hx Crohn's Disease, Hx Gastroesophageal Reflux Disease, Hx Hepatitis, Hx Hiatal Hernia, Hx Irritable Bowel, Hx Liver Failure, Hx Pancreatitis, Hx Ulcer Musculoskeltal Medical History: Reports Hx Arthritis, Denies Hx Fibromyalgia, Denies Hx Gout, Denies Hx Muscular Dystrophy Skin Medical History: Denies Hx Eczema, Denies Hx Psoriasis Psychiatric Medical History: Reports: Hx Bipolar Disorder, Hx Borderline Personality Disorder, Hx Depression, Hx Post Traumatic Stress Disorder, Hx Schizophrenia Traumatic Medical History: Reports: Hx Fractures - left tibia Infectious Medical History: Denies: Hx Hepatitis Past Surgical History: Reports: Hx Cholecystectomy, Hx Genitourinary Surgery - Suprapubic catheter, Hx Orthopedic Surgery - left ankle, left shoulder, right knee, neck. Denies: Hx Appendectomy, Hx Bowel Surgery, Hx Colostomy, Hx Coronary Artery Bypass Graft, Hx Gastric Bypass Surgery, Hx Herniorrhaphy, Hx Pacemaker, Hx Tonsillectomy - Immunizations Immunizations up to date: Yes Hx Diphtheria, Pertussis, Tetanus Vaccination: Yes Physical Exam - Vital signs Vitals: Temp Pulse Resp BP Pulse Ox 97.9 F 90 15 120/71 100 12/24/19 18:34 12/24/19 18:34 12/24/19 18:34 12/24/19 18:34 12/24/19 18:34 Course - Vital Signs Vital signs: Temp Pulse Resp BP Pulse Ox 97.9 F 90 15 120/71 100 12/24/19 18:34 12/24/19 18:34 12/24/19 18:34 12/24/19 18:34 12/24/19 18:34 Doctor's Discharge - Discharge Referrals: ELSA AGUILERA MD [Primary Care Provider] - Follow up as needed
[2019-12-24 20:12] LABS: ABSOLUTE BASOPHILS # (AUTO) 0.1 10^3/uL (0.0-0.2); ABSOLUTE EOSINOPHILS # (AUTO) 0.3 10^3/uL (0.0-0.6); ABSOLUTE LYMPHOCYTES (AUTO) 1.6 10^3/uL (0.5-4.7); ABSOLUTE MONOCYTES (AUTO) 0.7 10^3/uL (0.1-1.4); ABSOLUTE NEUT (AUTO) 4.8 10^3/uL (1.7-8.2); BASOPHILS % (AUTO) 1.1 % (0-2); EOSINOPHILS % (AUTO) 3.5 % (0-6); HEMATOCRIT 37.3 % (37.9-51.0); HEMOGLOBIN 12.1 g/dL (13.5-17.0); LYMPHOCYTES % (AUTO) 21.7 % (13-45); MEAN CORPUSCULAR HEMOGLOBIN 25.6 pg (27.0-33.4); MEAN CORPUSCULAR HGB CONC 32.6 g/dL (32.0-36.0); MEAN CORPUSCULAR VOLUME 79 fl (80-97); MONOCYTES % (AUTO) 9.3 % (3-13); PLATELET COUNT 312 10^3/uL (150-450); RED BLOOD COUNT 4.75 10^6/uL (4.35-5.55); RED CELL DISTRIBUTION WIDTH 17.1 % (11.5-14.0); SEGMENTED NEUTROPHILS % (AUTO) 64.4 % (42-78); TOTAL CELLS COUNTED % (AUTO) 100 %; WHITE BLOOD COUNT 7.4 10^3/uL (4.0-10.5)
[2019-12-24 20:22] LABS: ALBUMIN 3.8 g/dL (3.5-5.0); ALKALINE PHOSPHATASE 119 U/L (38-126); ANION GAP 6 (5-19); ASPARTATE AMINO TRANSFERASE 32 U/L (17-59); BILIRUBIN,DIRECT 0.2 mg/dL (0.0-0.4); BILIRUBIN,TOTAL 0.3 mg/dL (0.2-1.3); BLOOD UREA NITROGEN 10 mg/dL (7-20); CALCIUM 9.2 mg/dL (8.4-10.2); CARBON DIOXIDE 30 mmol/L (22-30); CHLORIDE 104 mmol/L (98-107); GLUCOSE 78 mg/dL (75-110); POTASSIUM 4.2 mmol/L (3.6-5.0); TOTAL PROTEIN 6.9 g/dL (6.3-8.2)
[2019-12-25 01:04] LABS: APPEARANCE,URINE CLOUDY; BILIRUBIN,URINE NEGATIVE (NEGATIVE); COLOR,URINE YELLOW; GLUCOSE, URINE 50 mg/dL (NEGATIVE); KETONES,URINE TRACE mg/dL (NEGATIVE); PROTEIN,URINE 100 mg/dL (NEGATIVE); URINE SPECIFIC GRAVITY 1.019
--- NOTE | 2019-12-25 01:42 | ER Document Report ---
ED General - General Chief Complaint: Weakness Stated Complaint: UNABLE TO WALK Time Seen by Provider: 12/24/19 18:36 Primary Care Provider: ELSA AGUILERA MD [Primary Care Provider] - Follow up as needed Mode of Arrival: Wheelchair Notes: 49-year-old male with a history of transverse myelitis presents emergency department stating that he feels like he is may be having a flare of his transve rse myelitis. This is never happened before. Patient states that he has been feeling increasingly weak in his bilateral lower extremities for the past 3 days however since 6 PM this evening he has been completely unable to bear weight on his legs because he states there is a spasm in his bilateral lower extremities that makes his legs give out. It is also associated with a burning pain in his legs as well as a pain in his mid and upper back. Patient does not have any muscle relaxers at home. Has not tried anything for the spasms or pain. Normally patient is ambulatory with a cane after his right knee replacement several months ago. Does not usually have muscle spasms or this burning pain. He denies any fecal incontinence. Denies any fevers. Patient also notes that he has a history of recurrent urinary tract infections. States he thinks he may have another urinary tract infection right now. Denies any bowel movement for the past 3 days, states that he frequently has this pro blem and we usually treated with magnesium citrate however when he took mag citrate a couple of days ago he only had a small amount of liquid but no solid stool. TRAVEL OUTSIDE OF THE [place] IN LAST 30 DAYS: No - Related Data Allergies/Adverse Reactions: No Known Allergies Allergy (Verified 12/24/19 18:38) Home Medications: BACLOFEN, AND PHENERGAN Past Medical History - General Information source: Patient - Social History Smoking Status: Never Smoker Chew tobacco use (# tins/day): No Frequency of alcohol use: None Drug Abuse: None Family History: Hypertension. denies: CAD, DM, Malignancy Patient has suicidal ideation: No Patient has homicidal ideation: No - Past Medical History Cardiac Medical History: Reports: Hx DVT Denies: Hx Atrial Fibrillation, Hx Congestive Heart Failure, Hx Coronary Artery Disease, Hx Heart Attack, Hx Hypercholesterolemia, Hx Hypertension Pulmonary Medical History: Denies: Hx Asthma, Hx Bronchitis, Hx COPD, Hx Pneumonia, Hx Sleep Apnea Neurological Medical History: Denies: Hx Cerebrovascular Accident, Hx Seizures Endocrine Medical History: Denies: Hx Diabetes Mellitus Type 1, Hx Diabetes Rebecca litus Type 2, Hx Hyperthyroidism, Hx Hypothyroidism Renal/ Medical History: Reports: Hx Kidney Stones. Denies: Hx Benign Prostatic Hyperplasia, Hx End Stage Renal Disease, Hx Peritoneal Dialysis GI Medical History: Denies: Hx Cirrhosis, Hx Crohn's Disease, Hx Gastroesophageal Reflux Disease, Hx Hepatitis, Hx Hiatal Hernia, Hx Irritable Bowel, Hx Liver Failure, Hx Pancreatitis, Hx Ulcer Musculoskeletal Medical History: Reports Hx Arthritis, Denies Hx Fibromyalgia, Denies Hx Gout, Denies Hx Muscular Dystrophy Skin Medical History: Denies Hx Eczema, Denies Hx Psoriasis Psychiatric Medical History: Reports: Hx Bipolar Disorder, Hx Borderline Personality Disorder, Hx Depression, Hx Post Traumatic Stress Disorder, Hx Schizophrenia Traumatic Medical History: Reports: Hx Fractures - left tibia Infectious Medical History: Denies: Hx Hepatitis Past Surgical History: Reports: Hx Cholecystectomy, Hx Genitourinary Surgery - Suprapubic catheter, Hx Orthopedic Surgery - left ankle, left shoulder, right knee, neck. Denies: Hx Appendectomy, Hx Bowel Surgery, Hx Colostomy, Hx Coronary Artery Bypass Graft, Hx Gastric Bypass Surgery, Hx Herniorrhaphy, Hx Pacemaker, Hx Tonsillectomy - Immunizations Immunizations up to date: Yes Hx Diphtheria, Pertussis, Tetanus Vaccination: Yes Review of Systems - Review of Systems Constitutional: No symptoms reported Gastrointestinal: See HPI, Constipation Musculoskeletal: See HPI Neurological/Psychological: See HPI, Gait changes, Loss of power -: Yes All other systems reviewed and negative Physical Exam - Vital signs Vitals: Temp Pulse Resp BP Pulse Ox 97.9 F 90 15 120/71 100 12/24/19 18:34 12/24/19 18:34 12/24/19 18:34 12/24/19 18:34 12/24/19 18:34 Interpretation: Normal - Notes Notes: GENERAL: Alert, interacts well. No acute distress. HEAD: Normocephalic, atraumatic EYES: Pupils equal, round and reactive to light, extraocular movements intact. ENT: Oral mucosa moist, tongue midline. NECK: Full range of motion, supple, trachea midline. LUNGS: Clear to auscultation bilaterally, no wheezes, rales or rhonchi, no respiratory distress. HEART: Regular rate and rhythm, no murmurs, gallops, rubs. ABDOMEN: Soft, nontender, nondistended, bowel sounds present in all 4 quadrants. Suprapubic catheter in good position, no discharge from the insertion site. EXTREMITIES: Left leg is distinctly cooler than the right leg, I am able to palpate pulses in the left foot in the dorsalis pedis or posterior tibialis location, right foot has faintly palpable pulses. Doppler does reveal pulses in the left foot in both the dorsalis pedis and posterior tibialis location. Capillary refill is approximately 5 seconds on the left leg. Right leg is larger than the left leg however this is consistent with postoperative changes from the knee replacement and mild edema, it is nonpitting. Patient is able to move his toes on both feet without difficulty, has difficulty with dorsiflexion of the bilateral feet, is able to do slight internal rotation of the right foot, cannot do any internal rotation or external rotation of the left foot. Muscle strength is at best 1 out of 5 in the bilateral lower extremities during voluntary testing, patient is however able to withdraw slightly on both legs when I do testing for Babinski reflex (which is intact) on the soles of both feet. No cyanosis. NEUROLOGICAL: Alert and oriented x3, normal speech, unable to elicit deep tendon reflexes in the lower extremities bilaterally, complains of decreased sensation to the left leg compared to the right leg. PSYCH: Normal mood, normal affect. SKIN: no rashes or lesions noted. Course - Re-evaluation Re-evalutation: 12/25/19 02:52 CBC shows mild anemia, no leukocytosis, chemistries unremarkable, urinalysis does show small blood and large leukocyte esterase, 2+ bacteria and 182 WBCs as well as yeast. This will be sent for culture, treated empirically with Keflex and Diflucan. I am concerned by the cool left foot despite being able to Doppler pulses when combined with acute back pain that he does not usually have that this may be an aortic dissection. CAT scan will be performed. Case has been signed out to Dr. Ag for further follow-up on testing and evaluation and treatment. This patient may be having a recurrence of his transverse myelitis, if the CTA is normal the next step would be to get an MRI in the morning if the patient's strength does not return after treatment with muscle relaxer. - Vital Signs Vital signs: Temp Pulse Resp BP Pulse Ox 98.2 F 84 16 132/87 H 97 12/25/19 13:31 12/25/19 13:31 12/25/19 13:31 12/25/19 13:31 12/25/19 13:31 - Laboratory Result Diagrams: 12/24/19 19:32 12/24/19 19:32 Laboratory results interpreted by me: 12/24/19 12/25/19 19:32 00:50 Hgb 12.1 L Hct 37.3 L MCV 79 L MCH 25.6 L RDW 17.1 H Urine Protein 100 H Urine Glucose (UA) 50 H Urine Ketones TRACE H Urine Blood SMALL H Urine Urobilinogen 2.0 H Leukocyte Esterase Rfl LARGE H Discharge - Discharge Clinical Impression: neuro, Bilateral leg weakness Condition: Fair Disposition: [facility] Referrals: ELSA AGUILERA MD [Primary Care Provider] - Follow up as needed
[2019-12-25] MEDS ORDERED: METHOCARBAMOL INJ/PF 1000 MG/10 ML SDV IV ONE (01:57)
[2019-12-25] MEDS ORDERED: OXYCODONE-ACETAMINOPHEN 5-325 MG TABLET PO ONE (01:57)
[2019-12-25] MEDS ORDERED: CEPHALEXIN 500 MG CAPSULE PO ONE (02:53)
[2019-12-25] MEDS ORDERED: FLUCONAZOLE 100 MG TABLET PO ONE (02:53)
--- NOTE | 2019-12-25 04:29 | RADIOLOGY REPORT (SQ) ---
CT angiogram chest , abdomen and pelvis with contrast on 12/25/2019 at 3:55 AM CLINICAL INDICATION: Back pain, leg weakness, cool left foot TECHNIQUE: Multiple axial images are obtained throughout the chest, abdomen and pelvis following the administration of IV contrast. Computer generated 3D reconstructions/MIPS were performed. 100 mL of Omnipaque 350 contrast was administered intravenously. This exam was performed according to our departmental dose-optimization program, which includes automated exposure control, adjustment of the mA and/or kV according to patient size and/or use of iterative reconstruction technique. Total DLP is 3941.85 mGy*cm. COMPARISON: CT abdomen and pelvis from 11/29/2019 FINDINGS: CHEST: There is no thoracic aortic aneurysm or dissection. There is no pleural or pericardial effusion. This examination was not timed for pulmonary arterial evaluation but no large or central pulmonary embolus is noted. There is no thoracic adenopathy. There is minimal bilateral dependent and basilar atelectasis. The lungs are otherwise clear. No acute bony abnormality is noted. There are three great vessels originating off the aortic arch without evidence of stenosis of the proximal great vessels. ABDOMEN: There is no abdominal aortic aneurysm or dissection. The celiac, SMA and BAYRON are patent and unremarkable. There are two right renal arteries and a single left renal artery with no renal artery stenosis. The patient is status post cholecystectomy. The solid abdominal organs are unremarkable. The patient is status post gastric bypass surgery. There is no evidence of obstruction or internal hernia. There is no abdominal adenopathy. There is no free fluid or free air within the abdomen. The abdominal portion of the GI tract is otherwise unremarkable. Pelvis: Suprapubic bladder catheter is noted in place. There is no pelvic adenopathy. Sigmoid colon is redundant extending into the right upper quadrant. Pelvic portion of the GI tract including the appendix is otherwise unremarkable. No free fluid is noted in the pelvis. Degenerative changes are noted in the spine. No iliac or proximal femoral arterial disease is noted. IMPRESSION: 1. No evidence of thoracic or abdominal aortic aneurysm or dissection. 2. No acute abnormality noted in the chest, abdomen or pelvis.
--- NOTE | 2019-12-25 10:11 | RADIOLOGY REPORT (SQ) ---
EXAM DESCRIPTION: MRI THORACIC SPINE WITHOUT COMPLETED DATE/TIME: 12/25/2019 9:55 am REASON FOR STUDY: eval for cord compression and transverse myelitis COMPARISON: None. TECHNIQUE: Sagittal and Axial imaging includes T1, T2, STIR and gradient echo sequences. LIMITATIONS: None. FINDINGS: LOCALIZER: No worrisome findings. ALIGNMENT: Normal. VERTEBRAE: Intact. BONE MARROW: Normal. No marrow replacement or reactive changes. HARDWARE: None in the spine. CORD: Normal in size and signal intensity. SOFT TISSUES: No soft tissue masses. THORACIC DISCS T1-T12: No significant spinal stenosis or exit foraminal stenosis. LOWER CERVICAL: Incompletely imaged. No significant spinal stenosis or exit foraminal stenosis. UPPER LUMBAR: Incompletely imaged. No significant spinal stenosis or exit foraminal stenosis. OTHER: No other significant finding. IMPRESSION: NORMAL MRI THORACIC SPINE. TECHNICAL DOCUMENTATION: JOB ID: [id number] 2010 [employer]- All Rights Reserved Reading location - IP/workstation name: [email or web address]
--- NOTE | 2019-12-25 10:14 | RADIOLOGY REPORT (SQ) ---
EXAM DESCRIPTION: MRI LUMBAR SPINE WITHOUT COMPLETED DATE/TIME: 12/25/2019 9:55 am REASON FOR STUDY: eval cord compression and transverse myelitis COMPARISON: None. TECHNIQUE: Sagittal and Axial imaging includes T1, T2, STIR and gradient echo sequences. Coronal T2/ HASTE imaging. LIMITATIONS: None. FINDINGS: VISUALIZED UPPER ABDOMEN: Limited evaluation. No acute or suspicious findings suggested. SEGMENTATION: No transitional anatomy. The lowest well-developed disc space is labeled L5-S1. ALIGNMENT: Anatomic. VERTEBRAE: Intact. BONE MARROW: Normal. No marrow replacement or reactive changes. DISC SIGNAL: Decreased height and signal of the L5-S1 disc. Normal appearance of the other lumbar di scs. POSTERIOR ELEMENTS: Generally intact. No pars defect evident. HARDWARE: None in the spine. CORD AND CONUS: Normal in size and signal intensity. Conus at the appropriate level. SOFT TISSUES: No aortic aneurysm seen. No bulky retroperitoneal adenopathy or mass. No paraspinal mas s or fluid. L1-L2: No significant spinal stenosis or exit foraminal stenosis. L2-L3: No significant spinal stenosis or exit foraminal stenosis. L3-L4: No significant spinal stenosis or exit foraminal stenosis. L4-L5: No significant spinal stenosis or exit foraminal stenosis. L5-S1: Mild posterior disc and osteophyte. Mild facet arthropathy. No significant spinal stenosis. Mild exit foraminal stenosis. LOWER THORACIC: Incompletely imaged. No stenosis seen. SACRUM: Visualized upper sacrum intact. OTHER: No other significant findings. IMPRESSION: CHRONIC DEGENERATIVE CHANGES AT L5-S1 WITH MILD EXIT FORAMINAL STENOSIS. NO SIGNIFICANT SPINAL STENOSIS. NO OTHER SIGNIFICANT FINDINGS. TECHNICAL DOCUMENTATION: JOB ID: [id number] 2010 [employer]- All Rights Reserved Reading location - IP/workstation name: [email or web address]
--- NOTE | 2019-12-25 12:32 | ER Document Report ---
Doctor's Note Notes: 12/25/19 12:28 This is a gentleman who is a frequent visitor to the emergency department. He has a history of personality disorder and bipolar disorder and chronic pain syndrome. He has a suprapubic catheter in situ. He is previously been in a alf but is currently living independently. He is normally ambulatory with a cane. He has a past history of transverse myelitis. He was seen by Dr. Denilson camacho within the last 12 hours and underwent an extensive work-up here because of complaint of new spasm and motor weakness of both lower extremities. He had a contrast CT of chest and abdomen to rule out dissection which was negative. She is subsequently performed MRI of the entire spine. Patient was insistent that he was likely to be having a recurrence of his previously diagnosed transverse myelitis. The scans however did not show any objective abnormality. My reexamination at this time shows that patient has profound muscular weakness of both lower extremities. He denies sensory changes. His deep tendon reflexes are absent in both lower extremities. Patient is declining discharge at this time saying that he "cannot manage alone". Hospitalist service here is unwilling to admit this patient because of no available local neurologist on staff for consultation. Patient indicates that he was treated back in 2011 at [facility] when he was initially diagnosed with transverse myelitis. Subsequently he was seen by a private neurologist in [facility], Dr. Burdick. He says he has not been back for any recent follow-up with Dr. Burdick. We discussed possibility of going back to either [facility] or [facility]. He prefers to go to [place]. I have requested telephone consultation with on-call neurology at [facility] regarding possible ED to ED transfer for neurological evaluation. 12/25/19 12:50 I spoke with the neurologist on-call at [facility], Dr. Hagen, who feels that work- up here has been very appropriate and it is is his opinion that the patient is probably having muscular spasm due to late sequelae of transverse myelitis. He feels that we should transfer the patient ED to ED for evaluation by neurology and physical medicine. I have spoken with the ED attending database administration manager today at [facility], Dr. Karol Wiley, who has accepted the patient for ED to ED transf er. EMTALA form has been completed.
[2019-12-25 13:37] VITALS: BP 132/87
== END 2019-12-25 14:30 | disposition short-term general hospital (02) ==
LOC: ER 18:22
DX: R20.0 Anesthesia of skin (principal); R53.1 Weakness; K59.00 Constipation, unspecified; G89.4 Chronic pain syndrome; F60.9 Personality disorder, unspecified; Z86.718 Personal history of other venous thrombosis and embolism; Z87.442 Personal history of urinary calculi; Z90.49 Acquired absence of other specified parts of digestive tract; Z87.440 Personal history of urinary (tract) infections
CPT/HCPCS: 36415; 51701; 71275; 72146; 72148; 74174; 80053; 81001; 85025; 87086; 87088; 87186; 96365; 99285; J2800

== ENCOUNTER 2020-01-12 14:17 | Emergency (ER) | payer MEDICARE ==
[2020-01-12] MEDS ORDERED: PROMETHAZINE HCL INJ 50 MG/1 ML VIAL IM PRN (17:57)
[2020-01-12] MEDS ORDERED: KETOROLAC TROMETHAMINE 60 MG/2 ML SDV IM ONE (17:57)
[2020-01-12 18:53] LABS: ABSOLUTE BASOPHILS # (AUTO) 0.1 10^3/uL (0.0-0.2); ABSOLUTE EOSINOPHILS # (AUTO) 0.3 10^3/uL (0.0-0.6); ABSOLUTE LYMPHOCYTES (AUTO) 1.4 10^3/uL (0.5-4.7); ABSOLUTE MONOCYTES (AUTO) 0.7 10^3/uL (0.1-1.4); ABSOLUTE NEUT (AUTO) 6.8 10^3/uL (1.7-8.2); EOSINOPHILS % (AUTO) 2.7 % (0-6); HEMATOCRIT 36.9 % (37.9-51.0); HEMOGLOBIN 11.8 g/dL (13.5-17.0); LYMPHOCYTES % (AUTO) 14.9 % (13-45); MEAN CORPUSCULAR HEMOGLOBIN 25.2 pg (27.0-33.4); MEAN CORPUSCULAR VOLUME 79 fl (80-97); MONOCYTES % (AUTO) 8.1 % (3-13); PLATELET COUNT 235 10^3/uL (150-450); RED BLOOD COUNT 4.69 10^6/uL (4.35-5.55); RED CELL DISTRIBUTION WIDTH 18.1 % (11.5-14.0); SEGMENTED NEUTROPHILS % (AUTO) 73.3 % (42-78); TOTAL CELLS COUNTED % (AUTO) 100 %; WHITE BLOOD COUNT 9.3 10^3/uL (4.0-10.5)
[2020-01-12 19:01] LABS: APPEARANCE,URINE CLOUDY; BILIRUBIN,URINE NEGATIVE (NEGATIVE); CALCIUM OXALATE CRYSTALS,URINE FEW /HPF; COLOR,URINE YELLOW; GLUCOSE, URINE >=500 mg/dL (NEGATIVE); KETONES,URINE NEGATIVE (NEGATIVE); PROTEIN,URINE 30 mg/dL (NEGATIVE); URINE SPECIFIC GRAVITY 1.018; UROBILINOGEN,URINE NEGATIVE mg/dL (<2.0)
[2020-01-12 19:09] LABS: ALBUMIN 3.3 g/dL (3.5-5.0); ALKALINE PHOSPHATASE 93 U/L (38-126); ASPARTATE AMINO TRANSFERASE 17 U/L (17-59); BILIRUBIN,TOTAL 0.3 mg/dL (0.2-1.3); BLOOD UREA NITROGEN 8 mg/dL (7-20); CALCIUM 8.6 mg/dL (8.4-10.2); CARBON DIOXIDE 27 mmol/L (22-30); CHLORIDE 105 mmol/L (98-107); GLUCOSE 80 mg/dL (75-110); POTASSIUM 4.4 mmol/L (3.6-5.0); TOTAL PROTEIN 5.7 g/dL (6.3-8.2)
[2020-01-12 19:22] LABS: ANION GAP 4 (5-19)
[2020-01-12 19:44] VITALS: BP 117/75
--- NOTE | 2020-01-12 19:52 | ER Document Report ---
ED General - General Chief Complaint: Headache Stated Complaint: HEADACHE,NAUSEA,ABDOMINAL PAIN Time Seen by Provider: 01/12/20 16:36 Primary Care Provider: ELSA AGUILERA MD [Primary Care Provider] - Follow up as needed Mode of Arrival: Ambulatory Information source: Patient TRAVEL OUTSIDE OF THE [place] IN LAST 30 DAYS: No - HPI Notes: Patient presents complaining of suprapubic pain nausea vomiting for several days. States is gradually getting worse. Nothing known that makes it better or worse. Pain is essentially nonradiating and mainly suprapubic. Patient has a chronic indwelling catheter secondary to transverse myelitis. He states he has not had fevers or rashes. No significant problems with stool. The pain has been constant. Is been mild to moderate. He states he has had multiple episodes of vomiting. - Related Data Allergies/Adverse Reactions: No Known Allergies Allergy (Verified 12/24/19 18:38) Past Medical History - General Information source: Patient - Social History Smoking Status: Never Smoker Frequency of alcohol use: None Drug Abuse: None Family History: Hypertension. denies: CAD, DM, Malignancy Patient has suicidal ideation: No Patient has homicidal ideation: No - Past Medical History Cardiac Medical History: Reports: Hx DVT Denies: Hx Atrial Fibrillation, Hx Congestive Heart Failure, Hx Coronary Artery Disease, Hx Heart Attack, Hx Hypercholesterolemia, Hx Hypertension Pulmonary Medical History: Denies: Hx Asthma, Hx Bronchitis, Hx COPD, Hx Pneumonia, Hx Sleep Apnea Neurological Medical History: Denies: Hx Cerebrovascular Accident, Hx Seizures Endocrine Medical History: Denies: Hx Diabetes Mellitus Type 1, Hx Diabetes Mellitus Type 2, Hx Hyperthyroidism, Hx Hypothyroidism Renal/ Medical History: Reports: Hx Kidney Stones. Denies: Hx Benign Prostatic Hyperplasia, Hx End Stage Renal Disease, Hx Peritoneal Dialysis GI Medical History: Denies: Hx Cirrhosis, Hx Crohn's Disease, Hx Gastroesophageal Reflux Disease, Hx Hepatitis, Hx Hiatal Hernia, Hx Irritable Bowel, Hx Liver Failure, Hx Pancreatitis, Hx Ulcer Musculoskeletal Medical History: Reports Hx Arthritis, Denies Hx Fibromyalgia, Denies Hx Gout, Denies Hx Muscular Dystrophy Skin Medical History: Denies Hx Eczema, Denies Hx Psoriasis Psychiatric Medical History: Reports: Hx Bipolar Disorder, Hx Borderline Personality Disorder, Hx Depression, Hx Post Traumatic Stress Disorder, Hx Schizophrenia Traumatic Medical History: Reports: Hx Fractures - left tibia Infectious Medical History: Denies: Hx Hepatitis Past Surgical History: Reports: Hx Cholecystectomy, Hx Genitourinary Surgery - Suprapubic catheter, Hx Orthopedic Surgery - left ankle, left shoulder, right knee, neck. Denies: Hx Appendectomy, Hx Bowel Surgery, Hx Colostomy, Hx Coronary Artery Bypass Graft, Hx Gastric Bypass Surgery, Hx Herniorrhaphy, Hx Pacemaker, Hx Tonsillectomy - Immunizations Immunizations up to date: Yes Hx Diphtheria, Pertussis, Tetanus Vaccination: Yes Review of Systems - Review of Systems Constitutional: Malaise, Weakness Cardiovascular: denies: Chest pain, Palpitations Respiratory: denies: Cough, Short of breath -: Yes All other systems reviewed and negative Physical Exam - Vital signs Vitals: Temp Pulse Resp BP Pulse Ox 97.9 F 86 20 134/70 H 98 01/12/20 14:35 01/12/20 14:35 01/12/20 14:35 01/12/20 14:35 01/12/20 14:35 Interpretation: Normal - General General appearance: Appears well, Alert - HEENT Head: Normocephalic, Atraumatic Eyes: Normal Pupils: PERRL - Respiratory Respiratory status: No respiratory distress Chest status: Nontender Breath sounds: Normal Chest palpation: Normal - Cardiovascular Rhythm: Regular Heart sounds: Normal auscultation Murmur: No - Abdominal Inspection: Other - Patient has suprapubic catheter in place. The area around the catheter has some mild excoriation of the skin but no evidence of cellulitis or skin infection. No significant discharge from the wound. Distension: No distension Bowel sounds: Normal Tenderness: Tender - Some mild suprapubic tenderness to palpation. Organomegaly: No organomegaly - Back Back: Normal, Nontender - Extremities General upper extremity: Normal inspection, Nontender, Normal color, Normal ROM, Normal temperature General lower extremity: Normal inspection, Nontender, Normal color, Normal ROM, Normal temperature, Normal weight bearing. No: Martin's sign - Neurological Neuro grossly intact: Yes Cognition: Normal Orientation: AAOx4 [place] Coma Scale Eye Opening: Spontaneous [place] Coma Scale Verbal: Oriented Holly Coma Scale Motor: Obeys Commands Holly Coma Scale Total: 15 Speech: Normal Motor strength normal: LUE, RUE, LLE, RLE Sensory: Normal - Psychological Associated symptoms: Normal affect, Normal mood - Skin Skin Temperature: Warm Skin Moisture: Dry Skin Color: Normal Course - Re-evaluation Re-evalutation: 01/12/20 19:48 Patient does not have an elevated white blood cell count or a fever. His recent cultures have grown multiple different bugs with the only recent antibiotic known to be Keflex. Patient does have a UA that is different than his normal UA. Therefore with patient's symptoms and the abnormal urinalysis I am going to treat him with Levaquin and Macrobid as this is what the previous cultures were sensitive to. I will also send the patient home with antinausea medication. - Vital Signs Vital signs: Temp Pulse Resp BP Pulse Ox 98 F 70 20 117/75 100 01/12/20 19:43 01/12/20 19:43 01/12/20 14:35 01/12/20 19:43 01/12/20 19:43 - Laboratory Result Diagrams: 01/12/20 18:33 01/12/20 18:33 Laboratory results interpreted by me: 01/12/20 01/12/20 01/12/20 18:33 18:33 18:33 Hgb 11.8 L Hct 36.9 L MCV 79 L MCH 25.2 L RDW 18.1 H Sodium 136.2 L Anion Gap 4 L Total Protein 5.7 L Albumin 3.3 L Urine Protein 30 H Urine Glucose (UA) >=500 H Urine Blood MODERATE H Urine Nitrite (Reflex) POSITIVE H Leukocyte Esterase Rfl LARGE H Urine Ascorbic Acid 40 H Discharge - Discharge Clinical Impression: UTI (urinary tract infection) Qualifiers: Urinary tract infection type: acute cystitis Hematuria presence: with hematuria Qualified Code(s): N30.01 - Acute cystitis with hematuria Condition: Stable Disposition: HOME, SELF-CARE Instructions: Urinary Tract Infection ([facility]) Additional Instructions: Please follow-up with your primary care physician as soon as possible Prescriptions: Nitrofurantoin Monohyd/M-Cryst [Macrobid 100 mg Capsule] 100 mg PO BID 10 Days #20 cap Metoclopramide HCl [Reglan 10 mg Tablet] 1 tab PO Q6 5 Days #12 tablet Ondansetron [Zofran Odt 4 mg Tablet] 1 - 2 tab PO Q4H PRN #15 tab.rapdis PRN Reason: For Nausea/Vomiting Forms: Return to Work Referrals: ELSA AGUILERA MD [Primary Care Provider] - Follow up tomorrow
== END 2020-01-12 20:15 | disposition home or self-care (01) ==
LOC: ER 14:17
DX: T83.511A Infection and inflammatory reaction due to indwelling urethral catheter, initial encounter (principal); N30.01 Acute cystitis with hematuria; Y84.6 Urinary catheterization as the cause of abnormal reaction of the patient, or of later complication, without mention of misadventure at the time of the procedure; R51 Headache; R11.0 Nausea; R53.1 Weakness; R10.9 Unspecified abdominal pain; Z86.718 Personal history of other venous thrombosis and embolism; Z90.49 Acquired absence of other specified parts of digestive tract
CPT/HCPCS: 99283; 96372; 36415; 87086; 82962; 85025; 80053; 81001; J1885; J2550; 87088

== ENCOUNTER 2020-01-26 14:55 | Emergency (ER) | payer MEDICARE ==
[2020-01-26] MEDS ORDERED: OXYCODONE-ACETAMINOPHEN 5-325 MG TABLET PO ONE (15:45)
[2020-01-26] MEDS ORDERED: ONDANSETRON 4 MG TAB.RAPDIS PO ONE (15:45)
--- NOTE | 2020-01-26 16:07 | ER Document Report ---
ED Medical Screen (RME) - General Chief Complaint: Flank Pain Stated Complaint: URINARY ISSUES/VOMITING/NAUSEA Time Seen by Provider: 01/26/20 15:43 Primary Care Provider: ELSA AGUILERA MD [Primary Care Provider] - Follow up as needed Mode of Arrival: Ambulatory Information source: Patient Notes: 49-year-old male patient with history of transverse myelitis and subsequent suprapubic catheter placement presenting to the emergency department with right flank pain and concern for possible urinary tract infection. Patient reports nausea and vomiting. Right CVA tenderness present. I have greeted and performed a rapid initial assessment of this patient. A comprehensive ED assessment and evaluation of the patient, analysis of test results and completion of the medical decision making process will be conducted by additional ED providers. I have specifically instructed the patient or family members with the patient to immediately return to any nursing staff s hould anything change in the patient's condition or with their chief complaint. TRAVEL OUTSIDE OF THE [place] IN LAST 30 DAYS: No - Related Data Allergies/Adverse Reactions: No Known Allergies Allergy (Verified 12/24/19 18:38) Past Medical History - Social History Frequency of alcohol use: None Drug Abuse: None Family history: Reviewed & Not Pertinent - Past Medical History Cardiac Medical History: Reports: Hx DVT Denies: Hx Atrial Fibrillation, Hx Congestive Heart Failure, Hx Coronary Artery Disease, Hx Heart Attack, Hx Hypercholesterolemia, Hx Hypertension Pulmonary Medical History: Denies: Hx Asthma, Hx Bronchitis, Hx COPD, Hx Pneumonia, Hx Sleep Apnea Neurological Medical History: Denies: Hx Cerebrovascular Accident, Hx Seizures Endocrine Medical History: Denies: Hx Diabetes Mellitus Type 1, Hx Diabetes Mellitus Type 2, Hx Hyperthyroidism, Hx Hypothyroidism Renal/ Medical History: Reports: Hx Kidney Stones. Denies: Hx Benign Prostatic Hyperplasia, Hx End Stage Renal Disease, Hx Peritoneal Dialysis GI Medical History: Denies: Hx Cirrhosis, Hx Crohn's Disease, Hx Gastroesophageal Reflux Disease, Hx Hepatitis, Hx Hiatal Hernia, Hx Irritable Bowel, Hx Liver Failure, Hx Pancreatitis, Hx Ulcer Musculoskeltal Medical History: Reports Hx Arthritis, Denies Hx Fibromyalgia, Denies Hx Gout, Denies Hx Muscular Dystrophy Skin Medical History: Denies Hx Eczema, Denies Hx Psoriasis Psychiatric Medical History: Reports: Hx Bipolar Disorder, Hx Borderline Personality Disorder, Hx Depression, Hx Post Traumatic Stress Disorder, Hx Schizophrenia Traumatic Medical History: Reports: Hx Fractures - left tibia Infectious Medical History: Denies: Hx Hepatitis Past Surgical History: Reports: Hx Cholecystectomy, Hx Genitourinary Surgery - Suprapubic catheter, Hx Orthopedic Surgery - left ankle, left shoulder, right knee, neck. Denies: Hx Appendectomy, Hx Bowel Surgery, Hx Colostomy, Hx Coronary Artery Bypass Graft, Hx Gastric Bypass Surgery, Hx Herniorrhaphy, Hx Pacemaker, Hx Tonsillectomy - Immunizations Immunizations up to date: Yes Hx Diphtheria, Pertussis, Tetanus Vaccination: Yes Physical Exam - Vital signs Vitals: Temp Pulse Resp BP Pulse Ox 98.1 F 98 16 136/79 H 98 01/26/20 15:02 01/26/20 15:02 01/26/20 15:02 01/26/20 15:02 01/26/20 15:02 Course - Vital Signs Vital signs: Temp Pulse Resp BP Pulse Ox 98.1 F 98 16 136/79 H 98 01/26/20 15:02 01/26/20 15:02 01/26/20 15:02 01/26/20 15:02 01/26/20 15:02 Doctor's Discharge - Discharge Referrals: ELSA AGUILERA MD [Primary Care Provider] - Follow up as needed
[2020-01-26 17:11] LABS: ABSOLUTE BASOPHILS # (AUTO) 0.1 10^3/uL (0.0-0.2); ABSOLUTE EOSINOPHILS # (AUTO) 0.4 10^3/uL (0.0-0.6); ABSOLUTE LYMPHOCYTES (AUTO) 1.8 10^3/uL (0.5-4.7); ABSOLUTE MONOCYTES (AUTO) 0.8 10^3/uL (0.1-1.4); ABSOLUTE NEUT (AUTO) 4.4 10^3/uL (1.7-8.2); BASOPHILS % (AUTO) 1.5 % (0-2); EOSINOPHILS % (AUTO) 5.4 % (0-6); HEMATOCRIT 35.9 % (37.9-51.0); LYMPHOCYTES % (AUTO) 23.7 % (13-45); MEAN CORPUSCULAR HEMOGLOBIN 25.8 pg (27.0-33.4); MEAN CORPUSCULAR HGB CONC 33.5 g/dL (32.0-36.0); MEAN CORPUSCULAR VOLUME 77 fl (80-97); MONOCYTES % (AUTO) 11.1 % (3-13); PLATELET COUNT 361 10^3/uL (150-450); RED BLOOD COUNT 4.67 10^6/uL (4.35-5.55); RED CELL DISTRIBUTION WIDTH 18.2 % (11.5-14.0); SEGMENTED NEUTROPHILS % (AUTO) 58.3 % (42-78); TOTAL CELLS COUNTED % (AUTO) 100 %; WHITE BLOOD COUNT 7.6 10^3/uL (4.0-10.5)
[2020-01-26 17:28] LABS: ALBUMIN 3.9 g/dL (3.5-5.0); ALKALINE PHOSPHATASE 128 U/L (38-126); ANION GAP 8 (5-19); ASPARTATE AMINO TRANSFERASE 16 U/L (17-59); BILIRUBIN,DIRECT 0.3 mg/dL (0.0-0.4); BILIRUBIN,TOTAL 0.4 mg/dL (0.2-1.3); BLOOD UREA NITROGEN 11 mg/dL (7-20); CALCIUM 9.1 mg/dL (8.4-10.2); CARBON DIOXIDE 25 mmol/L (22-30); CHLORIDE 104 mmol/L (98-107); GLUCOSE 108 mg/dL (75-110); POTASSIUM 4.3 mmol/L (3.6-5.0); TOTAL PROTEIN 6.9 g/dL (6.3-8.2)
--- NOTE | 2020-01-26 17:58 | ER Document Report ---
ED GI/ - General Chief Complaint: Flank Pain Stated Complaint: URINARY ISSUES/VOMITING/NAUSEA Time Seen by Provider: 01/26/20 15:43 Primary Care Provider: ELSA AGUILERA MD [Primary Care Provider] - Follow up as needed Mode of Arrival: Ambulatory Notes: HPI: 49-year-old male with past medical history as recorded who presents today with the onset last night of some right flank pain. Some mild radiation to the right abdomen. No aggravating relieving factors. No fevers. Vomiting x1. No cough, congestion, or shortness of breath. Patient has a suprapubic catheter in place with no decreased flow or drainage around the catheter insertion site. Patient does have a history of kidney stones. Patient has neurogenic bladder secondary to transverse myelitis. Patient was seen and assessed here on January 11 with a urine culture that grew out 2 different specimens. He was treated with Levaquin and Macrobid and both specimens were susceptible to Macrobid. ROS: See HPI All other review of systems reviewed and otherwise negative Reviewed vital signs and nursing note as charted by RN. PHYSICAL EXAM: CONSTITUTIONAL: Alert and oriented and responds appropriately to questions. Well -appearing; well-nourished HEAD: Normocephalic; atraumatic EYES: PERRL; Conjunctivae clear, sclerae non-icteric CARD: Regular rate and rhythm; no murmurs; symmetric distal pulses RESP: Normal chest excursion without splinting or tachypnea; breath sounds clear and equal bilaterally ABD/GI: Normal bowel sounds; non-distended; soft, nontender currently to deep palpation of all 4 quadrants of the abdomen. Suprapubic catheter insertion site looks clean and dry with no drainage appreciated BACK: The back appears normal and is non-tender to palpation EXT: Normal ROM in all joints; non-tender to palpation; no edema SKIN: No acute lesions noted NEURO: CN 2-12 intact; 5/5 bilateral upper and lower extremity strength with sensation intact to light touch PSYCH: The patient's mood and manner are appropriate. Grooming and personal hygiene are appropriate. TRAVEL OUTSIDE OF THE [place] IN LAST 30 DAYS: No - Related Data Allergies/Adverse Reactions: No Known Allergies Allergy (Verified 12/24/19 18:38) Past Medical History - General Information source: Patient - Social History Smoking Status: Never Smoker Frequency of alcohol use: None Drug Abuse: None Family History: Hypertension. denies: CAD, DM, Malignancy Patient has suicidal ideation: No Patient has homicidal ideation: No - Past Medical History Cardiac Medical History: Reports: Hx DVT Denies: Hx Atrial Fibrillation, Hx Congestive Heart Failure, Hx Coronary Artery Disease, Hx Heart Attack, Hx Hypercholesterolemia, Hx Hypertension Pulmonary Medical History: Denies: Hx Asthma, Hx Bronchitis, Hx COPD, Hx Pneumonia, Hx Sleep Apnea Neurological Medical History: Denies: Hx Cerebrovascular Accident, Hx Seizures Endocrine Medical History: Denies: Hx Diabetes Mellitus Type 1, Hx Diabetes Mellitus Type 2, Hx Hyperthyroidism, Hx Hypothyroidism Renal/ Medical History: Reports: Hx Kidney Stones. Denies: Hx Benign Prostatic Hyperplasia, Hx End Stage Renal Disease, Hx Peritoneal Dialysis GI Medical History: Denies: Hx Cirrhosis, Hx Crohn's Disease, Hx Gastroesop hageal Reflux Disease, Hx Hepatitis, Hx Hiatal Hernia, Hx Irritable Bowel, Hx Liver Failure, Hx Pancreatitis, Hx Ulcer Musculoskeletal Medical History: Reports Hx Arthritis, Denies Hx Fibromyalgia, Denies Hx Gout, Denies Hx Muscular Dystrophy Skin Medical History: Denies Hx Eczema, Denies Hx Psoriasis Psychiatric Medical History: Reports: Hx Bipolar Disorder, Hx Borderline Personality Disorder, Hx Depression, Hx Post Traumatic Stress Disorder, Hx Schizophrenia Traumatic Medical History: Reports: Hx Fractures - left tibia Infectious Medical History: Denies: Hx Hepatitis Past Surgical History: Reports: Hx Cholecystectomy, Hx Genitourinary Surgery - Suprapubic catheter, Hx Orthopedic Surgery - left ankle, left shoulder, right knee, neck. Denies: Hx Appendectomy, Hx Bowel Surgery, Hx Colostomy, Hx Coronary Artery Bypass Graft, Hx Gastric Bypass Surgery, Hx Herniorrhaphy, Hx Pacemaker, Hx Tonsillectomy - Immunizations Immunizations up to date: Yes Hx Diphtheria, Pertussis, Tetanus Vaccination: Yes Physical Exam - Vital signs Vitals: Temp Pulse Resp BP Pulse Ox 98.1 F 98 16 136/79 H 98 01/26/20 15:02 01/26/20 15:02 01/26/20 15:02 01/26/20 15:02 01/26/20 15:02 Course - Re-evaluation Re-evalutation: 01/26/20 17:57 Given the above history and physical with a history of kidney stones, with right flank pain, with a suprapubic catheter in place, we will obtain a renal colic CT scan as well as basic labs and urine analysis. Vital signs as recorded and the patient is afebrile. 01/26/20 19:52 Labs and imaging as recorded. We will send a urine culture. Patient has no fever with a white count as recorded with no urinary symptoms. He does have a suprapubic catheter. I do not feel it is appropriate to try to change the suprapubic catheter in the ER we will wait for the urine culture results. Patient has no pain at this time. - Vital Signs Vital signs: Temp Pulse Resp BP Pulse Ox 98.1 F 98 16 136/79 H 98 01/26/20 15:02 01/26/20 15:02 01/26/20 15:02 01/26/20 15:02 01/26/20 15:02 - Laboratory Result Diagrams: 01/26/20 16:48 01/26/20 16:48 Laboratory results interpreted by me: 01/26/20 01/26/20 16:48 16:48 Hgb 12.0 L Hct 35.9 L MCV 77 L MCH 25.8 L RDW 18.2 H AST 16 L Alkaline Phosphatase 128 H Discharge - Discharge Clinical Impression: Right flank pain Condition: Good Disposition: HOME, SELF-CARE Additional Instructions: Come back immediately for any increased pain, return of pain, change in location or quality of pain, or any other acute problems. Please follow-up with the urine culture results as discussed. Referrals: ELSA AGUILERA MD [Primary Care Provider] - Follow up as needed
--- NOTE | 2020-01-26 18:21 | RADIOLOGY REPORT (SQ) ---
EXAM DESCRIPTION: CT ABD/PELVIS NO ORAL OR IV COMPLETED DATE/TIME: 01/26/2020 4:59 pm REASON FOR STUDY: 34; right flank pain. COMPARISON: CT angiography chest, abdomen and pelvis, 12/25/2019 TECHNIQUE: CT scan of the abdomen and pelvis performed without intravenous or oral contrast. Images reviewed with lung, soft tissue, and bone windows. Reconstructed coronal and sagittal MPR images revi ewed. All images stored on PACS. All CT scanners at this facility use dose modulation, iterative reconstruction, and/or weight based d osing when appropriate to reduce radiation dose to as low as reasonably achievable (ALARA). [facility]: Dose Right [facility]: CareDose [facility]: Dose Right [facility]: Teradose 4D [facility]: [employer] RADIATION DOSE: CT Rad equipment meets quality standard of care and radiation dose reduction techniq ues were employed. CTDIvol: 16.9 mGy. DLP: 1016 mGy-cm.mGy. LIMITATIONS: None. FINDINGS: LOWER CHEST: No significant findings. No nodules or infiltrates. NON-CONTRASTED LIVER, SPLEEN, ADRENALS: Hypodense attenuation of the left hepatic lobe, unchanged fro m prior probably representing a small hepatic cyst. Prominent biliary ducts secondary to cholecystec pat, stable. Spleen has normal size. No adrenal mass. PANCREAS: No masses. No peripancreatic inflammatory changes. GALLBLADDER: Surgically absent. RIGHT KIDNEY AND URETER: No suspicious masses. Assessment limited by lack of IV contrast. No signif icant calcifications. No hydronephrosis or hydroureter. LEFT KIDNEY AND URETER: No suspicious masses. Assessment limited by lack of IV contrast. No signifi cant calcifications. No hydronephrosis or hydroureter. AORTA AND RETROPERITONEUM: No aneurysm. No retroperitoneal masses or adenopathy. BOWEL AND PERITONEAL CAVITY: No bowel obstruction. No bowel wall thickening. No significant inflamm atory change. No ascites or pneumoperitoneum. APPENDIX: Normal. PELVIS, BLADDER, AND ABDOMINAL WALL:Suprapubic catheter with balloon inflated in the urinary bladder, unchanged. Multiple calcified pelvic phleboliths. Prostate has normal size. BONES: No suspicious bone lesions. Osteoarthritis bilateral hips. OTHER: No other significant finding. IMPRESSION: 1. No acute abnormality in the abdomen or pelvis to explain the patient's symptoms. No renal or uret eral calculi. No hydronephrosis. 2. Status post cholecystectomy. Prominence of the intrahepatic and extrahepatic biliary ducts are st able since previous examination and likely represent postoperative reservoir effect. COMMENT: Quality ID # [id number]: Final reports with documentation of one or more dose reduction techniques (e.g., Automated exposure control, adjustment of the mA and/or kV according to patient size, use of iterative reconstruction technique) TECHNICAL DOCUMENTATION: JOB ID: [id number] 2010 [employer]- All Rights Reserved Reading location - IP/workstation name: [id number]
[2020-01-26 20:24] LABS: AMORPHOUS SEDIMENT,URINE TRACE /HPF; APPEARANCE,URINE SLIGHTLY-CLOUDY; BILIRUBIN,URINE NEGATIVE (NEGATIVE); COLOR,URINE YELLOW; GLUCOSE, URINE NEGATIVE (NEGATIVE); KETONES,URINE NEGATIVE (NEGATIVE); LEUKOCYTE ESTERASE,URINE LARGE (NEGATIVE); NITRITE,URINE POSITIVE (NEGATIVE); PROTEIN,URINE NEGATIVE (NEGATIVE); URINE SPECIFIC GRAVITY 1.012; UROBILINOGEN,URINE NEGATIVE mg/dL (<2.0)
[2020-01-26 20:30] VITALS: BP 118/74
== END 2020-01-26 20:30 | disposition home or self-care (01) ==
LOC: ER 14:55
DX: R10.9 Unspecified abdominal pain (principal); R11.2 Nausea with vomiting, unspecified; G37.3 Acute transverse myelitis in demyelinating disease of central nervous system; N31.9 Neuromuscular dysfunction of bladder, unspecified; Z87.442 Personal history of urinary calculi
CPT/HCPCS: 99284; 36415; 87086; 83690; 85025; 87088; 80053; 81001; 74176; A9270 ×2; 87186; S0119

== ENCOUNTER 2020-03-02 12:35 | Emergency (ER) | payer MEDICARE ==
[2020-03-02] MEDS ORDERED: RINGERS LACTATED IV ONE (13:29)
[2020-03-02] MEDS ORDERED: VANCOMYCIN HCL INJ 1000 MG VIAL IV ONE (13:29)
[2020-03-02] MEDS ORDERED: PIPERACILLIN/TAZOBACTAM 4.5 GM VIAL IV ONE (13:29)
[2020-03-02] MEDS ORDERED: ONDANSETRON HCL INJ/PF 4 MG/2 ML SDV IV ONE (13:37)
[2020-03-02] MEDS ORDERED: FENTANYL CITRATE INJ/PF 100 MCG/2 ML AMPUL IV ONE ×2 (13:38→15:57)
--- NOTE | 2020-03-02 13:52 | ER Document Report ---
ED General - General Chief Complaint: Problem with Urinary Catheter Stated Complaint: POSSIBLE UTI Time Seen by Provider: 03/02/20 12:51 Primary Care Provider: ELSA AGUILERA MD [Primary Care Provider] - Follow up as needed TRAVEL OUTSIDE OF THE [place] IN LAST 30 DAYS: No - HPI Notes: Chief complaint: Suprapubic discomfort, malaise, nausea/vomiting and diaphoresis HPI: 49-year-old male well-known to me from prior ED encounters with past history of transverse myelitis and neurogenic bladder with suprapubic catheter in situ who is been seen here on numerous occasions with urinary tract infections and past problems with renal stones now presenting with complaints as above progressively worse for past 2 days. Last catheter change was approximately 1 month ago. Patient notes that there is heavy sediment in the catheter. Patient denies known COVID exposure. No recent travel. - Related Data Allergies/Adverse Reactions: No Known Allergies Allergy (Verified 03/02/20 13:32) Past Medical History - General Information source: Patient - Social History Smoking Status: Never Smoker Family History: Hypertension. denies: CAD, DM, Malignancy Patient has suicidal ideation: No Patient has homicidal ideation: No - Past Medical History Cardiac Medical History: Reports: Hx DVT Denies: Hx Atrial Fibrillation, Hx Congestive Heart Failure, Hx Coronary Artery Disease, Hx Heart Attack, Hx Hypercholesterolemia, Hx Hypertension Pulmonary Medical History: Denies: Hx Asthma, Hx Bronchitis, Hx COPD, Hx Pneumonia, Hx Sleep Apnea Neurological Medical History: Reports: Other - History of transverse myelitis. Denies: Hx Cerebrovascular Accident, Hx Seizures Endocrine Medical History: Denies: Hx Diabetes Mellitus Type 1, Hx Diabetes Mellitus Type 2, Hx Hyperthyroidism, Hx Hypothyroidism Renal/ Medical History: Reports: Hx Kidney Stones, Other - Neurogenic bladder with indwelling suprapubic catheter. Denies: Hx Benign Prostatic Hyperplasia, Hx End Stage Renal Disease, Hx Peritoneal Dialysis GI Medical History: Denies: Hx Cirrhosis, Hx Crohn's Disease, Hx Gastroesophageal Reflux Disease, Hx Hepatitis, Hx Hiatal Hernia, Hx Irritable Bowel, Hx Liver Failure, Hx Pancreatitis, Hx Ulcer Musculoskeletal Medical History: Reports Hx Arthritis, Denies Hx Fibromyalgia, Denies Hx Gout, Denies Hx Muscular Dystrophy Skin Medical History: Denies Hx Eczema, Denies Hx Psoriasis Psychiatric Medical History: Reports: Hx Bipolar Disorder, Hx Borderline Personality Disorder, Hx Depression, Hx Post Traumatic Stress Disorder, Hx Schizophrenia Traumatic Medical History: Reports: Hx Fractures - left tibia Infectious Medical History: Denies: Hx Hepatitis Past Surgical History: Reports: Hx Cholecystectomy, Hx Genitourinary Surgery - Suprapubic catheter, Hx Orthopedic Surgery - left ankle, left shoulder, right knee, neck. Denies: Hx Appendectomy, Hx Bowel Surgery, Hx Colostomy, Hx Coronary Artery Bypass Graft, Hx Gastric Bypass Surgery, Hx Herniorrhaphy, Hx Pacemaker, Hx Tonsillectomy - Immunizations Immunizations up to date: Yes Hx Diphtheria, Pertussis, Tetanus Vaccination: Yes Review of Systems - Review of Systems Notes: Constitutional: Intermittent diaphoresis. Has not taken temperature at home. HENT: Negative for sore throat. Eyes: Negative for visual changes. Cardiovascular: Negative for chest pain. Respiratory: Negative for shortness of breath. Gastrointestinal: As per HPI. Genitourinary: As per HPI. Musculoskeletal: Negative for back pain. Skin: Negative for rash. Neurological: Negative for headaches, focal weakness or numbness. 10 point ROS negative except as marked above and in HPI. Physical Exam - Vital signs Vitals: Temp Pulse Resp BP Pulse Ox 98.1 F 91 17 131/87 H 97 03/02/20 12:39 03/02/20 12:39 03/02/20 12:39 03/02/20 12:39 03/02/20 12:39 - Notes Notes: GENERAL: Middle-age male who appears diaphoretic. SKIN: Diaphoretic. Good turgor no rashes. HEAD: Normocephalic atraumatic. EYES: PERRLA. EOMI. Conjunctivae and sclerae clear. EARS: CANALS AND TMS CLEAR. NOSE: CLEAR. MOUTH: Moist mucosa. Good dentition. No stridor or edema. No drooling. NECK: Supple. No masses or thyromegaly. No adenopathy. Carotids 2+ without bruits. No JVD. BACK: Symmetrical without tenderness. CHEST: Respirations unlabored. Breath sounds clear and symmetrical. HEART: Regular rhythm. No murmur gallop or rub. ABDOMEN: Suprapubic catheter in situ with thick sediment. Patient is mildly tender suprapubic area. Soft without masses, organomegaly or rebound. Bowel sounds normally active. No bruits. GENITALIA: Deferred. EXTREMITIES: No edema. No calf tenderness. Cap refill less than 1.5 seconds. Dorsalis pedis and posterior tibial pulses 3+ and symmetrical. NEUROLOGICAL: GCS 15. Alert and oriented x3. Fluent speech. Cranial nerves II through XII intact. Sensorimotor and cerebellar normal. Normal tone. PSYCHIATRIC: Appropriate affect. Course - Re-evaluation Re-evalutation: 03/02/20 16:02 Suprapubic catheter was obtained by nurse and we sent a specimen for culture. This looks like he probably has an acute cystitis. His temp was rechecked and was not elevated here. His white count is normal. Lactate was normal. His chemistry profile is unremarkable. We gave him a dose of IV antibiotics here. He got Zosyn and vancomycin. He feels better. I think he can be discharged on some oral Keflex and follow-up with his primary care physician outpatient. - Vital Signs Vital signs: Temp Pulse Resp BP Pulse Ox 98.1 F 91 20 131/87 H 97 03/02/20 15:00 03/02/20 12:39 03/02/20 15:00 03/02/20 12:39 03/02/20 15:00 - Laboratory Result Diagrams: 03/02/20 13:27 03/02/20 13:27 Laboratory results interpreted by me: 03/02/20 03/02/20 03/02/20 13:27 13:27 14:13 Hgb 12.1 L Hct 36.2 L MCV 78 L MCH 26.3 L RDW 19.2 H Eos % (Auto) 6.4 H VBG pH 7.43 H Sodium 136.5 L Glucose 124 H Total Protein 6.1 L Urine Protein Urine Blood Leukocyte Esterase Rfl 03/02/20 15:24 Hgb Hct MCV MCH RDW Eos % (Auto) VBG pH Sodium Glucose Total Protein Urine Protein 100 H Urine Blood MODERATE H Leukocyte Esterase Rfl MODERATE H - EKG Interpretation by Me Additional EKG results interpreted by me: 03/02/20 13:53 Twelve-lead EKG from 1347 hrs. is reviewed contemporaneously by me showing normal sinus rhythm with a rate of 77 with pre-existing left anterior fascicular block and no acute ST/T wave changes. Discharge - Discharge Clinical Impression: Neurogenic dysfunction of the urinary bladder Urinary tract infection Qualifiers: Urinary tract infection type: catheter-associated UTI Indwelling urinary catheter type: cystostomy catheter Encounter type: initial encounter Qualified Code(s): T83.510A - Infection and inflammatory reaction due to cystostomy catheter, initial encounter; N39.0 - Urinary tract infection, site not specified Condition: Stable Disposition: HOME, SELF-CARE Instructions: Cephalexin ([facility]), Urinary Tract Infection ([facility]) Additional Instructions: Return here as needed for new or worsening symptoms: Pain that is worsening or unimproved Uncontrolled vomiting High fever or shaking chills Overall worsening Prescriptions: Tramadol HCl [Ultram 50 mg Tablet] 50 mg PO Q4HP PRN #12 tab PRN Reason: Cephalexin Monohydrate [Keflex 500 mg Capsule] 500 mg PO Q6H 10 Days #40 capsule Ondansetron [Zofran Odt 4 mg Tablet] 1 - 2 tab PO Q4H PRN #15 tab.rapdis PRN Reason: For Nausea/Vomiting Referrals: ELSA AGUILERA MD [Primary Care Provider] - Follow up as needed
[2020-03-02 14:06] LABS: ABSOLUTE BASOPHILS # (AUTO) 0.1 10^3/uL (0.0-0.2); ABSOLUTE EOSINOPHILS # (AUTO) 0.4 10^3/uL (0.0-0.6); ABSOLUTE LYMPHOCYTES (AUTO) 1.2 10^3/uL (0.5-4.7); ABSOLUTE MONOCYTES (AUTO) 0.7 10^3/uL (0.1-1.4); ABSOLUTE NEUT (AUTO) 4.5 10^3/uL (1.7-8.2); BASOPHILS % (AUTO) 1.1 % (0-2); EOSINOPHILS % (AUTO) 6.4 % (0-6); HEMATOCRIT 36.2 % (37.9-51.0); HEMOGLOBIN 12.1 g/dL (13.5-17.0); LYMPHOCYTES % (AUTO) 17.7 % (13-45); MEAN CORPUSCULAR HEMOGLOBIN 26.3 pg (27.0-33.4); MEAN CORPUSCULAR HGB CONC 33.5 g/dL (32.0-36.0); MEAN CORPUSCULAR VOLUME 78 fl (80-97); MONOCYTES % (AUTO) 9.5 % (3-13); PLATELET COUNT 279 10^3/uL (150-450); RED BLOOD COUNT 4.62 10^6/uL (4.35-5.55); RED CELL DISTRIBUTION WIDTH 19.2 % (11.5-14.0); SEGMENTED NEUTROPHILS % (AUTO) 65.3 % (42-78); TOTAL CELLS COUNTED % (AUTO) 100 %; WHITE BLOOD COUNT 6.9 10^3/uL (4.0-10.5)
--- NOTE | 2020-03-02 14:09 | RADIOLOGY REPORT (SQ) ---
EXAM DESCRIPTION: CHEST SINGLE VIEW IMAGES COMPLETED DATE/TIME: 03/02/2020 1:58 pm REASON FOR STUDY: fever COMPARISON: None. EXAM PARAMETERS: NUMBER OF VIEWS: One view. TECHNIQUE: Single frontal radiographic view of the chest acquired. RADIATION DOSE: NA LIMITATIONS: None. FINDINGS: LUNGS AND PLEURA: Small focal dense opacity at the left lung base favored to represent ove rlying costosternal calcification. No additional airspace disease, pleural effusion or pneumothorax. MEDIASTINUM AND HILAR STRUCTURES: No masses. Contour normal. HEART AND VASCULAR STRUCTURES: Heart normal in size. Normal vasculature. BONES: No acute findings. HARDWARE: Partially visualized cervical fusion hardware. OTHER: No other significant finding. IMPRESSION: No definite acute cardiopulmonary process. Focal dense opacity the left lung base favor ed to represent overlying costosternal calcifications. TECHNICAL DOCUMENTATION: JOB ID: [id number] 2010 [employer]- All Rights Reserved Reading location - IP/workstation name: [email or web address]
[2020-03-02 14:11] LABS: INTERNATIONAL RATION (INR) 1.12; PROTHROMBIN TIME 14.5 SEC (11.4-15.4)
[2020-03-02 14:29] LABS: VENOUS BLOOD BASE EXCESS 2.1 mmol/L; VENOUS BLOOD HCO3 26.5 mmol/L (20-32); VENOUS BLOOD PCO2 40.6 mmHg (35-63); VENOUS BLOOD PH 7.43 (7.30-7.42)
[2020-03-02 14:35] LABS: ALBUMIN 3.7 g/dL (3.5-5.0); ALKALINE PHOSPHATASE 103 U/L (38-126); ANION GAP 5 (5-19); ASPARTATE AMINO TRANSFERASE 46 U/L (17-59); BILIRUBIN,TOTAL 0.3 mg/dL (0.2-1.3); BLOOD UREA NITROGEN 8 mg/dL (7-20); CALCIUM 9.1 mg/dL (8.4-10.2); CARBON DIOXIDE 27 mmol/L (22-30); CHLORIDE 105 mmol/L (98-107); GLUCOSE 124 mg/dL (75-110); TOTAL PROTEIN 6.1 g/dL (6.3-8.2)
[2020-03-02 15:50] LABS: APPEARANCE,URINE CLEAR; BILIRUBIN,URINE NEGATIVE (NEGATIVE); COLOR,URINE YELLOW; GLUCOSE, URINE NEGATIVE (NEGATIVE); KETONES,URINE NEGATIVE (NEGATIVE); PROTEIN,URINE 100 mg/dL (NEGATIVE); URINE SPECIFIC GRAVITY 1.015; UROBILINOGEN,URINE NEGATIVE mg/dL (<2.0)
[2020-03-02 16:48] VITALS: BP 127/82
--- NOTE | 2020-03-03 07:23 | EKG REPORT ---
SEVERITY:- ABNORMAL ECG - SINUS RHYTHM LEFT ANTERIOR FASCICULAR BLOCK : Confirmed by: Stephanie Giraldo 03-Mar-2020 07:22:16
== END 2020-03-02 16:54 | disposition home or self-care (01) ==
LOC: ER 12:35
DX: T83.510A Infection and inflammatory reaction due to cystostomy catheter, initial encounter (principal); N39.0 Urinary tract infection, site not specified; Y84.6 Urinary catheterization as the cause of abnormal reaction of the patient, or of later complication, without mention of misadventure at the time of the procedure; N31.9 Neuromuscular dysfunction of bladder, unspecified; R61 Generalized hyperhidrosis; I44.4 Left anterior fascicular block
CPT/HCPCS: 93005; 96376; 99284; 96375; 96365; 96367; 36415; 87040; 87086; 83605; 85025; 85610; 87088; 80053; 81001; 87186; 82803; 71045; 93010; J3010; J2405; J7120; J3370; J2543

== ENCOUNTER 2020-03-09 13:55 | Emergency (ER) | payer MEDICARE ==
[2020-03-09] MEDS ORDERED: IBUPROFEN 800 MG TABLET PO ONE (14:03)
--- NOTE | 2020-03-09 14:41 | ER Document Report ---
HPI - HPI Patient complains to provider of: Right knee pain Time Seen by Provider: 03/09/20 13:57 Onset: Just prior to arrival Onset/Duration: Sudden Pain Level: 5 Context: 49-year-old male presents emergency department complaints of right knee pain. Patient reports recent knee replacement in October. Reports that he was going to get the mail when he fell onto both knees. He complained of severe pain. Reports he had to call EMS to bring him in. Reports he is unable to walk due to the pain. Associated Symptoms: None Exacerbated by: Movement, Walking Relieved by: Denies Similar symptoms previously: No Recently seen / treated by doctor: No - CONSTITUTIONAL Constitutional: DENIES: Fever, Chills - REPRODUCTIVE Reproductive: DENIES: : - MUSCULOSKELETAL Musculoskeletal: REPORTS: Extremity pain - rt knee Past Medical History - General Information source: Patient - Social History Smoking Status: Never Smoker Chew tobacco use (# tins/day): No Frequency of alcohol use: None Drug Abuse: None Lives with: Alone Family History: Hypertension. denies: CAD, DM, Malignancy Patient has suicidal ideation: No Patient has homicidal ideation: No - Past Medical History Cardiac Medical History: Reports: Hx DVT Denies: Hx Atrial Fibrillation, Hx Congestive Heart Failure, Hx Coronary Artery Disease, Hx Heart Attack, Hx Hypercholesterolemia, Hx Hypertension Pulmonary Medical History: Denies: Hx Asthma, Hx Bronchitis, Hx COPD, Hx Pneumonia, Hx Sleep Apnea Neurological Medical History: Denies: Hx Cerebrovascular Accident, Hx Seizures Endocrine Medical History: Denies: Hx Diabetes Mellitus Type 1, Hx Diabetes Mellitus Type 2, Hx Hyperthyroidism, Hx Hypothyroidism Renal/ Medical History: Reports: Hx Kidney Stones. Denies: Hx Benign Prostatic Hyperplasia, Hx End Stage Renal Disease, Hx Peritoneal Dialysis GI Medical History: Denies: Hx Cirrhosis, Hx Crohn's Disease, Hx Gastroesophageal Reflux Disease, Hx Hepatitis, Hx Hiatal Hernia, Hx Irritable Bowel, Hx Liver Failure, Hx Pancreatitis, Hx Ulcer Musculoskeletal Medical History: Reports Hx Arthritis, Denies Hx Fibromyalgia, Denies Hx Gout, Denies Hx Muscular Dystrophy Skin Medical History: Denies Hx Eczema, Denies Hx Psoriasis Psychiatric Medical History: Reports: Hx Bipolar Disorder, Hx Borderline Personality Disorder, Hx Depression, Hx Post Traumatic Stress Disorder, Hx Schizophrenia Traumatic Medical History: Reports: Hx Fractures - left tibia Infectious Medical History: Denies: Hx Hepatitis Past Surgical History: Reports: Hx Cholecystectomy, Hx Genitourinary Surgery - Suprapubic catheter, Hx Orthopedic Surgery - left ankle, left shoulder, right knee, neck. Denies: Hx Appendectomy, Hx Bowel Surgery, Hx Colostomy, Hx Coronary Artery Bypass Graft, Hx Gastric Bypass Surgery, Hx Herniorrhaphy, Hx Pacemaker, Hx Tonsillectomy - Immunizations Immunizations up to date: Yes Hx Diphtheria, Pertussis, Tetanus Vaccination: Yes Vertical Provider Document - CONSTITUTIONAL Agree With Documented VS: Yes Exam Limitations: No Limitations General Appearance: WD/WN, No Apparent Distress - Calm cooperative - INFECTION CONTROL TRAVEL OUTSIDE OF THE [place] IN LAST 30 DAYS: No - HEENT HEENT: Atraumatic, Normocephalic - NECK Neck: Supple - RESPIRATORY Respiratory: No Respiratory Distress - CARDIOVASCULAR Cardiovascular: Regular Rate - MUSCULOSKELETAL/EXTREMETIES Musculoskeletal/Extremeties: Tender - Bilateral knees tender to palpate right pain greater than left. Small abrasion noted to left knee. No active bleeding. No obvious deformity - NEURO Level of Consciousness: Awake, Alert, Appropriate Motor/Sensory: No Motor Deficit - DERM Integumentary: Warm, Dry Course - Re-evaluation Re-evalutation: 03/09/20 14:52 c/o right knee pain, ibuprofen ordered, ice pack placed Knee X-Ray 03/09/20 14:03 IMPRESSION: Prior total knee replacement. No acute findings. 03/09/20 15:00 Patient instructed on no acute findings. He was able to stand up and walk around. He declined crutches. Reports he is a walker at home. He was instructed to follow-up with Dr. Perez tomorrow. He was also instructed to return the emergency department for worsening symptoms swelling any signs of infection. He verbalized understanding to all instructions. - Vital Signs Vital signs: Temp Pulse Resp BP Pulse Ox 98.6 F 03/09/20 14:00 - Diagnostic Test Radiology reviewed: Image reviewed, Reports reviewed Discharge - Discharge Clinical Impression: Right knee pain Condition: Stable Disposition: HOME, SELF-CARE Instructions: Use of Yyrc-Cox-Bollipv Ibuprofen ([facility]), Ice & Elevation ([facility]) Additional Instructions: *You have been evaluated for right knee pain *Maintain the huey wrap, use your walker *Rest/Ice/Elevate your knee *Follow up with Dr. Perez tomorrow *Take ibuprofen as indicated for pain. *Return to ED for worsening condition, changes, needs Referrals: ELSA AGUILERA MD [Primary Care Provider] - Follow up as needed LUKE PEREZ MD [ACTIVE STAFF] - Follow up tomorrow
--- NOTE | 2020-03-09 14:41 | RADIOLOGY REPORT (SQ) ---
EXAM DESCRIPTION: KNEE RIGHT 4 VIEWS IMAGES COMPLETED DATE/TIME: 03/09/2020 2:29 pm REASON FOR STUDY: fall, knee pain COMPARISON: 10/13/2019 NUMBER OF VIEWS: Four views. TECHNIQUE: AP, lateral, and both oblique radiographic images acquired of the right knee. LIMITATIONS: None. FINDINGS: MINERALIZATION: Normal. BONES: No acute fracture or dislocation. No worrisome bone lesions. JOINT: Prior total arthroplasty. SOFT TISSUES: No soft tissue swelling. No radio-opaque foreign body. OTHER: No other significant finding. IMPRESSION: Prior total knee replacement. No acute findings. TECHNICAL DOCUMENTATION: JOB ID: [id number] 2010 [employer]- All Rights Reserved Reading location - IP/workstation name: [email or web address]
== END 2020-03-09 15:06 | disposition home or self-care (01) ==
LOC: ER 13:55
DX: M25.561 Pain in right knee (principal); S80.212A Abrasion, left knee, initial encounter; W19.XXXA Unspecified fall, initial encounter; Y93.89 Activity, other specified; Z96.651 Presence of right artificial knee joint
CPT/HCPCS: 99283; 73564; A9270

== ENCOUNTER 2020-03-14 11:47 | Emergency (ER) | payer MEDICARE ==
[2020-03-14] MEDS ORDERED: DIPHENHYDRAMINE HCL 50 MG/ML VIAL IV ONE (12:14)
[2020-03-14] MEDS ORDERED: DICYCLOMINE HCL INJ 20 MG/2 ML AMPULE IM ONE (12:14)
[2020-03-14] MEDS ORDERED: METOCLOPRAMIDE HCL INJ/PF 10 MG/2 ML SDV IV ONE (12:14)
[2020-03-14] MEDS ORDERED: RINGERS SOLUTION,LACTATED 1,000 ML IV ONE (12:15)
--- NOTE | 2020-03-14 12:18 | ER Document Report ---
ED General - General Chief Complaint: Abdominal Pain Stated Complaint: ABDOMINAL PAIN Time Seen by Provider: 03/14/20 12:02 Primary Care Provider: ELSA AGUILERA MD [Primary Care Provider] - Follow up as needed Notes: 49-year-old male presents emergency department worried that he may have a small bowel obstruction. Patient states that he has not had a bowel movement for the past week, states his abdomen is more distended than usual, states he does not recall passing gas for the past week and he is vomiting. States that his emesis is white, nonbloody, nonbilious, non-feculent. Describes the pain as a 5 out of 5 throbbing pain in his mid and upper abdomen. He is also concerned because he has had increasingly cloudy urine. Complains of sweats and chills, denies documented fever at home. TRAVEL OUTSIDE OF THE [place] IN LAST 30 DAYS: No - Related Data Allergies/Adverse Reactions: No Known Allergies Allergy (Verified 03/14/20 12:03) Past Medical History - General Information source: Patient - Social History Smoking Status: Never Smoker Chew tobacco use (# tins/day): No Frequency of alcohol use: None Drug Abuse: None Family History: Hypertension. denies: CAD, DM, Malignancy Patient has homicidal ideation: No - Past Medical History Cardiac Medical History: Reports: Hx DVT Denies: Hx Atrial Fibrillation, Hx Congestive Heart Failure, Hx Coronary Artery Disease, Hx Heart Attack, Hx Hypercholesterolemia, Hx Hypertension Pulmonary Medical History: Denies: Hx Asthma, Hx Bronchitis, Hx COPD, Hx Pneumonia, Hx Sleep Apnea Neurological Medical History: Denies: Hx Cerebrovascular Accident, Hx Seizures Endocrine Medical History: Denies: Hx Diabetes Mellitus Type 1, Hx Diabetes Mellitus Type 2, Hx Hyperthyroidism, Hx Hypothyroidism Renal/ Medical History: Reports: Hx Kidney Stones. Denies: Hx Benign Prostatic Hyperplasia, Hx End Stage Renal Disease, Hx Peritoneal Dialysis GI Medical History: Denies: Hx Cirrhosis, Hx Crohn's Disease, Hx Gastroesophageal Reflux Disease, Hx Hepatitis, Hx Hiatal Hernia, Hx Irritable Bowel, Hx Liver Failure, Hx Pancreatitis, Hx Ulcer Musculoskeletal Medical History: Reports Hx Arthritis, Denies Hx Fibromyalgia, Denies Hx Gout, Denies Hx Muscular Dystrophy Skin Medical History: Denies Hx Eczema, Denies Hx Psoriasis Psychiatric Medical History: Reports: Hx Bipolar Disorder, Hx Borderline Personality Disorder, Hx Depression, Hx Post Traumatic Stress Disorder, Hx Schizophrenia Traumatic Medical History: Reports: Hx Fractures - left tibia Infectious Medical History: Denies: Hx Hepatitis Past Surgical History: Reports: Hx Cholecystectomy, Hx Genitourinary Surgery - Suprapubic catheter, Hx Orthopedic Surgery - left ankle, left shoulder, right k nee, neck. Denies: Hx Appendectomy, Hx Bowel Surgery, Hx Colostomy, Hx Coronary Artery Bypass Graft, Hx Gastric Bypass Surgery, Hx Herniorrhaphy, Hx Pacemaker, Hx Tonsillectomy - Immunizations Immunizations up to date: Yes Hx Diphtheria, Pertussis, Tetanus Vaccination: Yes Review of Systems - Review of Systems Constitutional: See HPI, Chills, Diaphoresis EENT: No symptoms reported Gastrointestinal: See HPI, Abdomen distended, Abdominal pain, Vomiting, Constipation Genitourinary: See HPI - Cloudy urine. -: Yes All other systems reviewed and negative Physical Exam - Vital signs Vitals: Temp Pulse Resp BP Pulse Ox 97.5 F 92 18 120/84 98 03/14/20 11:52 03/14/20 11:52 03/14/20 11:52 03/14/20 11:52 03/14/20 11:52 Interpretation: Normal - Notes Notes: GENERAL: Alert, interacts well. No acute distress. HEAD: Normocephalic, atraumatic EYES: Pupils equal, round and reactive to light, extraocular movements intact. ENT: Oral mucosa moist, tongue midline. NECK: Full range of motion, supple, trachea midline. LUNGS: Clear to auscultation bilaterally, no wheezes, rales or rhonchi, no respiratory distress. HEART: Regular rate and rhythm, no murmurs, gallops, rubs. ABDOMEN: Moderately distended, not rigid, epigastric and periumbilical tenderness to palpation, no guarding, rigidity or rebounding, bowel sounds present in all 4 quadrants. EXTREMITIES: Moves all 4 extremities spontaneously, no edema, radial and dorsalis pedis pulses 2/4 bilaterally. No cyanosis. NEUROLOGICAL: Alert and oriented x3, normal speech. PSYCH: Normal mood, normal affect. SKIN: Warm, Dry, normal turgor, no rashes or lesions noted. Course - Re-evaluation Re-evalutation: 03/14/20 15:56 CBC shows mild anemia, CMP grossly unremarkable, lipase normal, urinalysis shows positive nitrites and large leukocyte esterase, reviewing old culture it does show Pseudomonas and Klebsiella. Patient is susceptible to Levaquin for both. Patient will be started on Levaquin. Abdomen/Pelvis CT 03/14/20 12:14 IMPRESSION: 1. No evidence of mechanical bowel obstruction. Postoperative changes as described. 2. No acute abdominopelvic abnormality. Acute Abdomen Series 03/14/20 12:14 IMPRESSION: Moderate amount of stool in the colon and rectum. Gaseous distension of rib redundant sigmoid colon in the right upper quadrant abdomen, similar in appearance to multiple previous examinations. No radiographic evidence of acute bowel obstruction. No acute cardiopulmonary disease. Patient does not have a small bowel obstruction. The oral contrast may help as a cathartic. Patient will be given an enema as well as magnesium citrate and discharged to home. - Vital Signs Vital signs: Temp Pulse Resp BP Pulse Ox 97.5 F 92 18 120/84 98 03/14/20 12:03 03/14/20 11:52 03/14/20 11:52 03/14/20 11:52 03/14/20 11:52 - Laboratory Result Diagrams: 03/14/20 12:45 03/14/20 12:45 Laboratory results interpreted by me: 03/14/20 03/14/20 03/14/20 12:45 12:45 12:45 Hgb 13.3 L RDW 19.7 H Lymph % (Auto) 12.6 L Glucose 140 H Urine Blood MODERATE H Urine Nitrite (Reflex) POSITIVE H Leukocyte Esterase Rfl LARGE H Discharge - Discharge Clinical Impression: Constipation Qualifiers: Constipation type: unspecified constipation type Qualified Code(s): K59.00 - Constipation, unspecified UTI (urinary tract infection) Qualifiers: Urinary tract infection type: catheter-associated UTI Indwelling urinary catheter type: cystostomy catheter Encounter type: subsequent encounter Qualified Code(s): T83.510D - Infection and inflammatory reaction due to cystostomy catheter, subsequent encounter; N39.0 - Urinary tract infection, site not specified Condition: Stable Disposition: HOME, SELF-CARE Additional Instructions: Please dissolve 1 scoop of MiraLAX in a glass of water once a day to treat constipation. You may increase to twice a day if needed to create soft bowel movements and you may decrease to every other day if you develop diarrhea. Please slowly increase your fiber to produce softer frequent bowel movements. Zofran can be constipating so if you end up taking Zofran please take a dose of MiraLAX with it. Please take the Phenergan for nausea as needed. Take the Levaquin as directed until it is gone. Prescriptions: Levofloxacin [Levaquin 750 mg Tablet] 750 mg PO DAILY #10 tablet Referrals: ELSA AGUILERA MD [Primary Care Provider] - Follow up as needed
--- NOTE | 2020-03-14 13:05 | RADIOLOGY REPORT (SQ) ---
EXAM DESCRIPTION: ACUTE ABDOMEN SERIES IMAGES COMPLETED DATE/TIME: 03/14/2020 11:42 am REASON FOR STUDY: no bm x 1 wk, h/o SBO COMPARISON: CT abdomen and pelvis, 01/26/2020. CT abdomen and pelvis, 12/25/2019. CT abdomen and pe lvis, 11/29/2019. NUMBER OF VIEWS: Three views. TECHNIQUE: Frontal chest, supine abdomen and upright/decubitus abdomen radiographic images acquired. LIMITATIONS: None. FINDINGS: CHEST: Lungs clear of infiltrates. FREE AIR: None. No abnormal gas collections. BOWEL GAS PATTERN: Gaseous distention of the redundant sigmoid colon similar in appearance to multipl e previous examinations. No evidence of bowel obstruction. Moderate amount of stool in the rectum. CALCIFICATIONS: No suspicious calcifications. HARDWARE: None in the abdomen. SOFT TISSUES: No gross mass or suggestion of organomegaly. BONES: No acute fracture. No worrisome bone lesions. OTHER: No other significant finding. IMPRESSION: Moderate amount of stool in the colon and rectum. Gaseous distension of rib redundant s igmoid colon in the right upper quadrant abdomen, similar in appearance to multiple previous examinat ions. No radiographic evidence of acute bowel obstruction. No acute cardiopulmonary disease. TECHNICAL DOCUMENTATION: JOB ID: [id number] 2010 [employer]- All Rights Reserved Reading location - IP/workstation name: [email or web address]
[2020-03-14 13:18] LABS: ABSOLUTE BASOPHILS # (AUTO) 0.1 10^3/uL (0.0-0.2); ABSOLUTE EOSINOPHILS # (AUTO) 0.3 10^3/uL (0.0-0.6); ABSOLUTE LYMPHOCYTES (AUTO) 0.9 10^3/uL (0.5-4.7); ABSOLUTE MONOCYTES (AUTO) 0.5 10^3/uL (0.1-1.4); ABSOLUTE NEUT (AUTO) 5.2 10^3/uL (1.7-8.2); EOSINOPHILS % (AUTO) 4.2 % (0-6); HEMATOCRIT 39.4 % (37.9-51.0); HEMOGLOBIN 13.3 g/dL (13.5-17.0); LYMPHOCYTES % (AUTO) 12.6 % (13-45); MEAN CORPUSCULAR HEMOGLOBIN 27.1 pg (27.0-33.4); MEAN CORPUSCULAR HGB CONC 33.7 g/dL (32.0-36.0); MEAN CORPUSCULAR VOLUME 80 fl (80-97); PLATELET COUNT 219 10^3/uL (150-450); RED BLOOD COUNT 4.91 10^6/uL (4.35-5.55); RED CELL DISTRIBUTION WIDTH 19.7 % (11.5-14.0); SEGMENTED NEUTROPHILS % (AUTO) 75.2 % (42-78); TOTAL CELLS COUNTED % (AUTO) 100 %; WHITE BLOOD COUNT 6.9 10^3/uL (4.0-10.5)
[2020-03-14 13:31] LABS: AMORPHOUS SEDIMENT,URINE TRACE /HPF; APPEARANCE,URINE SLIGHTLY-CLOUDY; BILIRUBIN,URINE NEGATIVE (NEGATIVE); COLOR,URINE YELLOW; GLUCOSE, URINE NEGATIVE (NEGATIVE); KETONES,URINE NEGATIVE (NEGATIVE); PROTEIN,URINE NEGATIVE (NEGATIVE); URINE SPECIFIC GRAVITY 1.009; UROBILINOGEN,URINE NEGATIVE mg/dL (<2.0)
[2020-03-14 13:38] LABS: ALBUMIN 4.1 g/dL (3.5-5.0); ALKALINE PHOSPHATASE 118 U/L (38-126); ANION GAP 8 (5-19); ASPARTATE AMINO TRANSFERASE 24 U/L (17-59); BILIRUBIN,TOTAL 0.4 mg/dL (0.2-1.3); BLOOD UREA NITROGEN 10 mg/dL (7-20); CALCIUM 8.8 mg/dL (8.4-10.2); CARBON DIOXIDE 25 mmol/L (22-30); CHLORIDE 105 mmol/L (98-107); GLUCOSE 140 mg/dL (75-110); POTASSIUM 3.6 mmol/L (3.6-5.0)
[2020-03-14] MEDS ORDERED: ONDANSETRON HCL INJ/PF 4 MG/2 ML SDV IV ONE (15:26)
--- NOTE | 2020-03-14 15:31 | RADIOLOGY REPORT (SQ) ---
EXAM DESCRIPTION: CT ABD/PELVIS WITH IV ORAL IMAGES COMPLETED DATE/TIME: 03/14/2020 3:18 pm REASON FOR STUDY: no bm x 1 wk, h/o SBO COMPARISON: 01/26/2020 TECHNIQUE: CT scan of the abdomen and pelvis performed with intravenous and oral contrast using jossue saira scanning technique with dynamic intravenous contrast injection. Images reviewed with lung, soft t issue, and bone windows. Reconstructed coronal and sagittal MPR images reviewed. Delayed images for e valuation of the urinary system also acquired. All images stored on PACS. All CT scanners at this facility use dose modulation, iterative reconstruction, and/or weight based d osing when appropriate to reduce radiation dose to as low as reasonably achievable (ALARA). [facility]: Dose Right [facility]: CareDose [facility]: Dose Right [facility]: Teradose 4D [facility]: [employer] RENAL FUNCTION: GFR > 60. RADIATION DOSE: . LIMITATIONS: None. FINDINGS: LOWER CHEST: No significant findings. No nodules or infiltrates. LIVER: Normal size. No masses. No dilated ducts. SPLEEN: Normal size. No focal lesions. PANCREAS: No masses. No significant calcifications. No adjacent inflammation or peripancreatic fluid collections. Pancreatic duct not dilated. GALLBLADDER: Surgically absent. ADRENAL GLANDS: No significant masses or asymmetry. RIGHT KIDNEY AND URETER: No solid masses. No significant calcification. No hydronephrosis or hydroure ter. LEFT KIDNEY AND URETER: No solid masses. No significant calcification. No hydronephrosis or hydrouret er. AORTA AND VESSELS: No aneurysm. No dissection. Renal arteries, SMA, celiac without stenosis. RETROPERITONEUM: No retroperitoneal adenopathy, hemorrhage or masses. BOWEL AND PERITONEAL CAVITY: Changes of gastric bypass. Redundant sigmoid colon. Mild-moderate stoo l. No evidence of mechanical bowel obstruction. No ascites or abnormal gas. APPENDIX: Normal. PELVIS: Suprapubic bladder catheter in place. No pelvic mass or fluid. ABDOMINAL WALL: No masses. No hernias. BONES: No significant or acute findings. OTHER: No other significant finding. IMPRESSION: 1. No evidence of mechanical bowel obstruction. Postoperative changes as described. 2. No acute abdominopelvic abnormality. TECHNICAL DOCUMENTATION: JOB ID: [id number] Quality ID # [id number]: Final reports with documentation of one or more dose reduction techniques (e.g., Au tomated exposure control, adjustment of the mA and/or kV according to patient size, use of iterative reconstruction technique) 2010 [employer]- All Rights Reserved Reading location - IP/workstation name: [email or web address]
[2020-03-14] MEDS ORDERED: MINERAL OIL 30 ML UDCUP PR ONE (15:55)
[2020-03-14] MEDS ORDERED: MAGNESIUM CITRATE 296 ML BOTTLE PO ONE (15:56)
[2020-03-14] MEDS ORDERED: KETOROLAC TROMETHAMINE INJ/PF 30 MG/1 ML SDV IV ONE (17:36)
[2020-03-14 18:05] VITALS: BP 118/83
== END 2020-03-14 18:05 | disposition home or self-care (01) ==
LOC: ER 11:47
DX: K59.00 Constipation, unspecified (principal); T83.510A Infection and inflammatory reaction due to cystostomy catheter, initial encounter; N39.0 Urinary tract infection, site not specified; Y73.8 Miscellaneous gastroenterology and urology devices associated with adverse incidents, not elsewhere classified; R11.10 Vomiting, unspecified; R68.83 Chills (without fever); R61 Generalized hyperhidrosis; Q43.8 Other specified congenital malformations of intestine
CPT/HCPCS: 99284; 96372; 96361; 96374; 96375; 36415; 87086; 83690; 85025; 87088; 80053; 81001; 87186; 74022; 74177; A9270 ×2; J0500; J1200; J1885; J2765; J2405; J7120; J3490

== ENCOUNTER 2020-03-29 11:50 | Emergency (ER) | payer MEDICARE ==
[2020-03-29] MEDS ORDERED: ONDANSETRON HCL INJ/PF 4 MG/2 ML SDV IV ONE ×2 (12:02→14:11)
[2020-03-29] MEDS ORDERED: MORPHINE SULFATE 10 MG/ML INJ IV ONE ×2 (12:02→14:12)
--- NOTE | 2020-03-29 12:03 | ER Document Report ---
ED Medical Screen (RME) - General Chief Complaint: Urinary Problem Stated Complaint: URINARY ISSUE Time Seen by Provider: 03/29/20 11:55 Primary Care Provider: ELSA AGUILERA MD [Primary Care Provider] - Follow up as needed Mode of Arrival: Wheelchair Information source: Patient Notes: HPI; 89-year-old male past medical history significant for transfers myelitis recurrent UTIs presents emergency room stating he has not had any urinary output for the past 2 days. Has a suprapubic catheter in place. States he put a new bag in today still no urinary output. Complains of nausea but no vomiting. Complains of generalized abdominal discomfort states he feels very weak understands when he lost his balance fell landing on his left side. Denies any injuries from the fall. States was seen 1 week ago has been on antibiotics he does not feel that he is improving. PE: Alert and oriented x3. Moderate distress noted. Lungs are clear to auscultation without rales rhonchi wheezes, heart: Tachycardic without murmurs rubs or gallops Abdomen: Distended diffuse bowel sounds palpated. I have greeted and performed a rapid initial assessment of this patient. A comp rehensive ED assessment and evaluation of the patient, analysis of test results and completion of the medical decision making process will be conducted by additional ED providers. I have specifically instructed the patient or family members with the patient to immediately return to any nursing staff should anything change in the patient's condition or with their chief complaint. TRAVEL OUTSIDE OF THE [place] IN LAST 30 DAYS: No - Related Data Allergies/Adverse Reactions: No Known Allergies Allergy (Verified 03/14/20 12:03) Past Medical History - Social History Family history: Reviewed & Not Pertinent - Past Medical History Cardiac Medical History: Reports: Hx DVT Denies: Hx Atrial Fibrillation, Hx Congestive Heart Failure, Hx Coronary Artery Disease, Hx Heart Attack, Hx Hypercholesterolemia, Hx Hypertension Pulmonary Medical History: Denies: Hx Asthma, Hx Bronchitis, Hx COPD, Hx Pneumonia, Hx Sleep Apnea Neurological Medical History: Denies: Hx Cerebrovascular Accident, Hx Seizures Endocrine Medical History: Denies: Hx Diabetes Mellitus Type 1, Hx Diabetes Mellitus Type 2, Hx Hyperthyroidism, Hx Hypothyroidism Renal/ Medical History: Reports: Hx Kidney Stones. Denies: Hx Benign Prostatic Hyperplasia, Hx End Stage Renal Disease, Hx Peritoneal Dialysis GI Medical History: Denies: Hx Cirrhosis, Hx Crohn's Disease, Hx Gastroesophageal Reflux Disease, Hx Hepatitis, Hx Hiatal Hernia, Hx Irritable Bowel, Hx Liver Failure, Hx Pancreatitis, Hx Ulcer Musculoskeltal Medical History: Reports Hx Arthritis, Denies Hx Fibromyalgia, Denies Hx Gout, Denies Hx Muscular Dystrophy Skin Medical History: Denies Hx Eczema, Denies Hx Psoriasis Psychiatric Medical History: Reports: Hx Bipolar Disorder, Hx Borderline Personality Disorder, Hx Depression, Hx Post Traumatic Stress Disorder, Hx Schizophrenia Traumatic Medical History: Reports: Hx Fractures - left tibia Infectious Medical History: Denies: Hx Hepatitis Past Surgical History: Reports: Hx Cholecystectomy, Hx Genitourinary Surgery - Suprapubic catheter, Hx Orthopedic Surgery - left ankle, left shoulder, right knee, neck. Denies: Hx Appendectomy, Hx Bowel Surgery, Hx Colostomy, Hx Coronary Artery Bypass Graft, Hx Gastric Bypass Surgery, Hx Herniorrhaphy, Hx Pacemaker, Hx Tonsillectomy - Immunizations Immunizations up to date: Yes Hx Diphtheria, Pertussis, Tetanus Vaccination: Yes Physical Exam - Vital signs Vitals: Temp Pulse Resp BP Pulse Ox 97.7 F 98 18 134/84 H 98 03/29/20 11:54 03/29/20 11:54 03/29/20 11:54 03/29/20 11:54 03/29/20 11:54 Course - Vital Signs Vital signs: Temp Pulse Resp BP Pulse Ox 97.7 F 98 18 134/84 H 98 03/29/20 11:54 03/29/20 11:54 03/29/20 11:54 03/29/20 11:54 03/29/20 11:54 Doctor's Discharge - Discharge Referrals: ELSA AGUILERA MD [Primary Care Provider] - Follow up as needed
[2020-03-29 12:23] LABS: ABSOLUTE BASOPHILS # (AUTO) 0.1 10^3/uL (0.0-0.2); ABSOLUTE EOSINOPHILS # (AUTO) 0.3 10^3/uL (0.0-0.6); ABSOLUTE LYMPHOCYTES (AUTO) 1.6 10^3/uL (0.5-4.7); ABSOLUTE MONOCYTES (AUTO) 0.6 10^3/uL (0.1-1.4); ABSOLUTE NEUT (AUTO) 5.7 10^3/uL (1.7-8.2); BASOPHILS % (AUTO) 1.1 % (0-2); EOSINOPHILS % (AUTO) 3.8 % (0-6); HEMATOCRIT 42.4 % (37.9-51.0); HEMOGLOBIN 14.2 g/dL (13.5-17.0); LYMPHOCYTES % (AUTO) 19.6 % (13-45); MEAN CORPUSCULAR HEMOGLOBIN 27.5 pg (27.0-33.4); MEAN CORPUSCULAR HGB CONC 33.5 g/dL (32.0-36.0); MEAN CORPUSCULAR VOLUME 82 fl (80-97); MONOCYTES % (AUTO) 6.9 % (3-13); PLATELET COUNT 290 10^3/uL (150-450); RED BLOOD COUNT 5.16 10^6/uL (4.35-5.55); RED CELL DISTRIBUTION WIDTH 19.5 % (11.5-14.0); SEGMENTED NEUTROPHILS % (AUTO) 68.6 % (42-78); TOTAL CELLS COUNTED % (AUTO) 100 %; WHITE BLOOD COUNT 8.3 10^3/uL (4.0-10.5)
[2020-03-29 12:46] LABS: ALBUMIN 3.9 g/dL (3.5-5.0); ALKALINE PHOSPHATASE 121 U/L (38-126); ANION GAP 10 (5-19); ASPARTATE AMINO TRANSFERASE 32 U/L (17-59); BILIRUBIN,TOTAL 0.4 mg/dL (0.2-1.3); BLOOD UREA NITROGEN 10 mg/dL (7-20); CALCIUM 8.8 mg/dL (8.4-10.2); CARBON DIOXIDE 21 mmol/L (22-30); CHLORIDE 103 mmol/L (98-107); GLUCOSE 258 mg/dL (75-110); POTASSIUM 3.7 mmol/L (3.6-5.0); TOTAL PROTEIN 6.6 g/dL (6.3-8.2)
--- NOTE | 2020-03-29 13:17 | ER Document Report ---
ED GI/ - General Chief Complaint: Urinary Problem Stated Complaint: URINARY ISSUE Time Seen by Provider: 03/29/20 11:55 Primary Care Provider: [facility] [Provider Group] - Follow up as needed ELSA AGUILERA MD [Primary Care Provider] - Follow up as needed Mode of Arrival: Wheelchair Information source: Patient Notes: 49 y/o male with pmhx of neurogenic bladder and transverse myelitis presents with no urine output x 1 day from suprapubic catheter. Pt reports has some leakage from urethra. Reports mild suprapubic pain with 2 episodes of non bloody emesis and nausea x 1 day. Has had one episode of nonbloody diarrhea since presentation to ED. Suprapubic catheter was placed 2 weeks ago by [facility]. Has a urologist in [place], but is unable to travel to [place] due to losing his license. Was started on cefurexime 250 mg 10 days ago for UTI. Has had one epsiode of nonbloody diarrhea while in the ED. Has had multiple narcotic prescriptions filled in the last year. [place] [employer] [employer] Monitoring system reveiwed and patient has multiple prescriptions for narcotics in the last year. TRAVEL OUTSIDE OF THE [place] IN LAST 30 DAYS: No - HPI Patient complains to provider of: Urinary retention Onset: Other - 2 Quality of pain: Fullness, Pressure Severity at maximum: Mild Severity in ED: Mild Pain Level: 1 Context: Other - inability to urinate Location: Suprapubic Associated symptoms: Diarrhea, Nausea, Urinary retention, Vomiting Relieved by: Supine Similar symptoms previously: No Recently seen / treated by doctor: No - Dr. Aguilera - Related Data Allergies/Adverse Reactions: No Known Allergies Allergy (Verified 03/14/20 12:03) Past Medical History - General Information source: Patient - Social History Smoking Status: Never Smoker Frequency of alcohol use: None Drug Abuse: None Family History: Hypertension. denies: CAD, DM, Malignancy Patient has suicidal ideation: No Patient has homicidal ideation: No - Past Medical History Cardiac Medical History: Reports: Hx DVT Denies: Hx Atrial Fibrillation, Hx Congestive Heart Failure, Hx Coronary Artery Disease, Hx Heart Attack, Hx Hypercholesterolemia, Hx Hypertension Pulmonary Medical History: Denies: Hx Asthma, Hx Bronchitis, Hx COPD, Hx Pneumonia, Hx Sleep Apnea Neurological Medical History: Denies: Hx Cerebrovascular Accident, Hx Seizures Other: transvere myelitis Endocrine Medical History: Reports: None Renal/ Medical History: Reports: Hx Kidney Stones, Other - Neurogenic bladder. Denies: Hx Benign Prostatic Hyperplasia, Hx End Stage Renal Disease, Hx Peritoneal Dialysis GI Medical History: Denies: Hx Cirrhosis, Hx Crohn's Disease, Hx Gastroesoph ageal Reflux Disease, Hx Hepatitis, Hx Hiatal Hernia, Hx Irritable Bowel, Hx Liver Failure, Hx Pancreatitis, Hx Ulcer Musculoskeletal Medical History: Reports Hx Arthritis, Denies Hx Fibromyalgia, Denies Hx Gout, Denies Hx Muscular Dystrophy Skin Medical History: Denies Hx Eczema, Denies Hx Psoriasis Psychiatric Medical History: Reports: Hx Bipolar Disorder, Hx Borderline Personality Disorder, Hx Depression, Hx Post Traumatic Stress Disorder, Hx Schizophrenia Traumatic Medical History: Reports: Hx Fractures - left tibia Infectious Medical History: Denies: Hx Hepatitis Past Surgical History: Reports: Hx Cholecystectomy, Hx Genitourinary Surgery - Suprapubic catheter, Hx Orthopedic Surgery - left ankle, left shoulder, right knee, neck. Denies: Hx Appendectomy, Hx Bowel Surgery, Hx Colostomy, Hx Coronary Artery Bypass Graft, Hx Gastric Bypass Surgery, Hx Herniorrhaphy, Hx Pacemaker, Hx Tonsillectomy - Immunizations Immunizations up to date: Yes Hx Diphtheria, Pertussis, Tetanus Vaccination: Yes Review of Systems - Review of Systems Constitutional: Weakness EENT: No symptoms reported Cardiovascular: No symptoms reported Respiratory: No symptoms reported Gastrointestinal: Diarrhea, Nausea, Vomiting, Poor fluid intake Genitourinary: Pain, Retention Male Genitourinary: No symptoms reported Musculoskeletal: Joint pain Hematologic/Lymphatic: No symptoms reported Neurological/Psychological: No symptoms reported Physical Exam - Vital signs Vitals: Temp 97.7 F 03/29/20 11:51 Interpretation: Normal - General General appearance: Appears well, Alert In distress: None - HEENT Head: Normocephalic, Atraumatic Eyes: Normal Conjunctiva: Normal Eyelashes: Normal - Respiratory Respiratory status: No respiratory distress Chest status: Nontender Breath sounds: Normal - Cardiovascular Rhythm: Regular Heart sounds: Normal auscultation Murmur: No - Abdominal Inspection: Normal Distension: No distension Bowel sounds: Normal Tenderness: Other - mild suprapubic tenderness Organomegaly: No organomegaly Notes: suprapubic catheter on lower right abdomen - Neurological Cognition: Normal - Psychological Associated symptoms: Normal affect, Normal mood - Skin Skin Temperature: Warm Skin Moisture: Dry Skin Color: Normal Course - Re-evaluation Re-evalutation: 03/29/20 13:46 Bladder scan performed at bedside no distended bladder noted. Dr. Andersen consulted at bedside. 03/29/20 15:[address] Andersen replacement of suprapubic catheter with 16 pang catheter, who is in agreement due to not having a 16 suprapubic catheter to replace current catheter.. 03/29/20 18:10 After placement of pang catheter, approximately 150 ml of urine was drained. UA was able to be performed which showed continued but improving UTI. Will continue patient on Ceftin 250 mg bid x 4 days with recommendation to follow up with urology. Labs results also show elevated blood sugars and A1c was elevated at 6.9. Patient prescribed metformin for type 2 diabetes mellitus with recommendation to follow up with pcm for further evaluation. - Vital Signs Vital signs: Temp Pulse Resp BP Pulse Ox 97.7 F 82 17 131/67 H 97 03/29/20 17:16 03/29/20 17:16 03/29/20 17:16 03/29/20 17:16 03/29/20 17:16 - Laboratory Result Diagrams: 03/29/20 12:10 03/29/20 12:10 Laboratory results interpreted by me: 03/29/20 03/29/20 03/29/20 12:10 12:10 12:10 RDW 19.5 H Sodium 134.4 L Carbon Dioxide 21 L Glucose 258 H Hemoglobin A1c % 6.9 H Urine Protein Urine Blood Ur Leukocyte Esterase 03/29/20 15:55 RDW Sodium Carbon Dioxide Glucose Hemoglobin A1c % Urine Protein 30 H Urine Blood SMALL H Ur Leukocyte Esterase LARGE H 03/29/20 17:39 Labs- Entire Visit 03/29/20 03/29/20 03/29/20 12:10 12:10 12:10 WBC 8.3 RBC 5.16 Hgb 14.2 Hct 42.4 MCV 82 MCH 27.5 MCHC 33.5 RDW 19.5 H Plt Count 290 Lymph % (Auto) 19.6 Chase % (Auto) 6.9 Eos % (Auto) 3.8 Baso % (Auto) 1.1 Absolute Neuts (auto) 5.7 Absolute Lymphs (auto) 1.6 Absolute Monos (auto) 0.6 Absolute Eos (auto) 0.3 Absolute Basos (auto) 0.1 Seg Neutrophils % 68.6 Sodium 134.4 L Potassium 3.7 Chloride 103 Carbon Dioxide 21 L Anion Gap 10 BUN 10 Creatinine 0.66 Est GFR ( Amer) > 60 Est GFR (MDRD) Non-Af > 60 Glucose 258 H Hemoglobin A1c % 6.9 H Calcium 8.8 Total Bilirubin 0.4 Direct Bilirubin 0.0 Neonat Total Bilirubin Not Reportable Neonat Direct Bilirubin Not Reportable Neonat Indirect Bili Not Reportable AST 32 ALT 35 Alkaline Phosphatase 121 Total Protein 6.6 Albumin 3.9 Lipase 90.5 Urine Color Urine Appearance Urine pH Ur Specific Luther Urine Protein Urine Glucose (UA) Urine Ketones Urine Blood Urine Nitrite Urine Bilirubin Urine Urobilinogen Ur Leukocyte Esterase Urine WBC (Auto) Urine RBC (Auto) Urine Bacteria (Auto) Squamous Epi Cells Auto Calcium Oxalate Cr Auto Urine Mucus (Auto) Urine Ascorbic Acid 03/29/20 15:55 WBC RBC Hgb Hct MCV MCH MCHC RDW Plt Count Lymph % (Auto) Chase % (Auto) Eos % (Auto) Baso % (Auto) Absolute Neuts (auto) Absolute Lymphs (auto) Absolute Monos (auto) Absolute Eos (auto) Absolute Basos (auto) Seg Neutrophils % Sodium Potassium Chloride Carbon Dioxide Anion Gap BUN Creatinine Est GFR ( Amer) Est GFR (MDRD) Non-Af Glucose Hemoglobin A1c % Calcium Total Bilirubin Direct Bilirubin Neonat Total Bilirubin Neonat Direct Bilirubin Neonat Indirect Bili AST ALT Alkaline Phosphatase Total Protein Albumin Lipase Urine Color YELLOW Urine Appearance SLIGHTLY-CLOUDY Urine pH 6.0 Ur Specific Luther 1.008 Urine Protein 30 H Urine Glucose (UA) NEGATIVE Urine Ketones NEGATIVE Urine Blood SMALL H Urine Nitrite NEGATIVE Urine Bilirubin NEGATIVE Urine Urobilinogen NEGATIVE Ur Leukocyte Esterase LARGE H Urine WBC (Auto) 38 Urine RBC (Auto) 6 Urine Bacteria (Auto) TRACE Squamous Epi Cells Auto <1 Calcium Oxalate Cr Auto FEW Urine Mucus (Auto) RARE Urine Ascorbic Acid NEGATIVE Procedures - Ultrasound/Bedside Ultrasound/Bedside Ultrasound: Other Discharge - Discharge Clinical Impression: Suprapubic catheter dysfunction Qualifiers: Encounter type: initial encounter Qualified Code(s): T83.010A - Breakdown (mechanical) of cystostomy catheter, initial encounter Diabetes Qualifiers: Diabetes mellitus type: type 2 Diabetes mellitus senior branch manager insulin use: without senior branch manager use Diabetes mellitus complication status: with hyperglycemia Qualified Code(s): E11.65 - Type 2 diabetes mellitus with hyperglycemia Urinary tract infection Qualifiers: Urinary tract infection type: acute cystitis Hematuria presence: without hem aturia Qualified Code(s): N30.00 - Acute cystitis without hematuria Condition: Stable Disposition: HOME, SELF-CARE Instructions: Diabetes ([facility]), Pang Catheter Care ([facility]), Glucophage ([facility]), Urinary Tract Infection ([facility]) Additional Instructions: YOU MUST FOLLOW-UP WITH A PRIMARY CARE DOCTOR PATRIC (24-48 hours). You have diabetes and will need senior branch manager management of your blood sugar levels. The most important step is dietary changes. You need to avoid foods/drinks high in sugar and simple carbohydrates. Avoid sugared sodas, sweet tea, sugared coffee, white starch products (potatoes, pastas, rices, breads). You are being started on a medication today called metformin. This often causes abdominal cramping, nausea, and diarrhea in the first weeks of use. These sy mptoms do stop generally after 3-4 weeks. Please do not stop this medication due to these expected side effects. Please check blood sugars daily. Please return to the ED immediately if you pass out, become confused, have persistent vomiting, or you have any new or worsening symptoms. Call urology office tomorrow to schedule a follow on appointment. Follow up with primary care or urology if symptoms of UTI persist. Prescriptions: Blood-Glucose Meter [Blood Glucose Meter] 1 unit MC DAILY PRN #1 unit PRN Reason: Blood Sugar Diagnostic [Blood Glucose Test] 1 each MC DAILY #1 bottle Cefuroxime Axetil [Ceftin 250 mg Tablet] 1 tab PO BID #8 tablet Metformin HCl [Glucophage 500 mg Tablet] 500 mg PO BID #60 tablet Referrals: ELSA AGUILERA MD [Primary Care Provider] - Follow up as needed [facility] [Provider Group] - Follow up as needed
[2020-03-29] MEDS ORDERED: NORMAL SALINE 1000 ML 1,000 ML IV ONE (13:44)
[2020-03-29 16:20] LABS: APPEARANCE,URINE SLIGHTLY-CLOUDY; BILIRUBIN,URINE NEGATIVE (NEGATIVE); CALCIUM OXALATE CRYSTALS,URINE FEW /HPF; COLOR,URINE YELLOW; GLUCOSE, URINE NEGATIVE (NEGATIVE); KETONES,URINE NEGATIVE (NEGATIVE); LEUKOCYTE ESTERASE,URINE LARGE (NEGATIVE); NITRITE,URINE NEGATIVE (NEGATIVE); PROTEIN,URINE 30 mg/dL (NEGATIVE); URINE SPECIFIC GRAVITY 1.008; UROBILINOGEN,URINE NEGATIVE mg/dL (<2.0)
[2020-03-29 17:17] VITALS: BP 131/67
== END 2020-03-29 17:16 | disposition home or self-care (01) ==
LOC: ER 11:50
DX: T83.010A Breakdown (mechanical) of cystostomy catheter, initial encounter (principal); E11.65 Type 2 diabetes mellitus with hyperglycemia; N30.00 Acute cystitis without hematuria; R39.198 Other difficulties with micturition; R10.30 Lower abdominal pain, unspecified; K92.0 Hematemesis; R33.9 Retention of urine, unspecified; R19.7 Diarrhea, unspecified; Z79.899 Other long term (current) drug therapy
CPT/HCPCS: 96376; 99284; 96361; 51702; 96374; 96375; 36415; 87086; 83690; 85025; 87088; 80053; 81001; 83036; J2270; J2405; J7030; 87186

== ENCOUNTER 2020-03-31 14:01 | Emergency (ER) | payer MEDICARE ==
[2020-03-31] MEDS ORDERED: NORMAL SALINE 1000 ML 1,000 ML IV ONE (14:46)
[2020-03-31] MEDS ORDERED: ONDANSETRON HCL INJ/PF 4 MG/2 ML SDV IV ONE (14:47)
[2020-03-31] MEDS ORDERED: MORPHINE SULFATE 10 MG/ML INJ IV ONE (14:47)
[2020-03-31] MEDS ORDERED: AMPICILLIN SOD/SULBACTAM 3 GM VIAL IV ONE (14:52)
--- NOTE | 2020-03-31 14:59 | ER Document Report ---
ED General - General Chief Complaint: Urinary Problem Stated Complaint: URINARY PROBLEM Time Seen by Provider: 03/31/20 14:08 Primary Care Provider: ELSA AGUILERA MD [Primary Care Provider] - Follow up as needed TRAVEL OUTSIDE OF THE [place] IN LAST 30 DAYS: No - HPI Notes: Patient is a 49-year-old male with a history of transverse myelitis, suprapubic catheter placement, who presents to the emergency department for evaluation. He states he was treated for UTI, he has been continued on Septra. He states that he continues to feel poorly. He said 3 episodes of nonbloody, nonbilious emesis in the last 24 hours. He states he has felt fevered and chilled, has had shaking as a result. He states he just feels poorly. He complains of pain in the suprapubic region as well as in the lower back. The pain is not radiating. - Related Data Allergies/Adverse Reactions: No Known Allergies Allergy (Verified 03/14/20 12:03) Past Medical History - General Information source: Patient - Social History Smoking Status: Current Some Day Smoker Family History: Hypertension. denies: CAD, DM, Malignancy - Past Medical History Cardiac Medical History: Reports: Hx DVT Denies: Hx Atrial Fibrillation, Hx Congestive Heart Failure, Hx Coronary Artery Disease, Hx Heart Attack, Hx Hypercholesterolemia, Hx Hypertension Pulmonary Medical History: Denies: Hx Asthma, Hx Bronchitis, Hx COPD, Hx Pneumonia, Hx Sleep Apnea Neurological Medical History: Reports: Other - Transverse myelitis. Denies: Hx Cerebrovascular Accident, Hx Seizures Endocrine Medical History: Denies: Hx Diabetes Mellitus Type 1, Hx Diabetes Mellitus Type 2, Hx Hyperthyroidism, Hx Hypothyroidism Renal/ Medical History: Reports: Hx Kidney Stones. Denies: Hx Benign Prostatic Hyperplasia, Hx End Stage Renal Disease, Hx Peritoneal Dialysis GI Medical History: Denies: Hx Cirrhosis, Hx Crohn's Disease, Hx Gastroesophageal Reflux Disease, Hx Hepatitis, Hx Hiatal Hernia, Hx Irritable Bowel, Hx Liver Failure, Hx Pancreatitis, Hx Ulcer Musculoskeletal Medical History: Reports Hx Arthritis, Denies Hx Fibromyalgia, Denies Hx Gout, Denies Hx Muscular Dystrophy Skin Medical History: Denies Hx Eczema, Denies Hx Psoriasis Psychiatric Medical History: Reports: Hx Bipolar Disorder, Hx Borderline Perso nality Disorder, Hx Depression, Hx Post Traumatic Stress Disorder, Hx Schizophrenia Traumatic Medical History: Reports: Hx Fractures - left tibia Infectious Medical History: Denies: Hx Hepatitis Past Surgical History: Reports: Hx Cholecystectomy, Hx Genitourinary Surgery - Suprapubic catheter, Hx Orthopedic Surgery - left ankle, left shoulder, right knee, neck. Denies: Hx Appendectomy, Hx Bowel Surgery, Hx Colostomy, Hx Coronary Artery Bypass Graft, Hx Gastric Bypass Surgery, Hx Herniorrhaphy, Hx Pacemaker, Hx Tonsillectomy - Immunizations Immunizations up to date: Yes Hx Diphtheria, Pertussis, Tetanus Vaccination: Yes Review of Systems - Review of Systems Constitutional: See HPI Genitourinary: See HPI Musculoskeletal: See HPI -: Yes All other systems reviewed and negative Physical Exam - Vital signs Vitals: Temp 97.4 F 03/31/20 14:02 - Notes Notes: Patient is a 49-year-old male appears stated age, no acute distress. Vital signs reviewed, please refer to chart. Head is normocephalic, atraumatic. Pupils equal round, reactive to light. Neck is supple without meningismus. Heart is regular rate and rhythm. Lungs are clear to auscultation bilaterally. Abdomen is soft, mildly tender in the suprapubic region without rebound or guarding, normoactive bowel sounds throughout. Suprapubic catheter noted to be in place with some mild surrounding erythema, all reactive appearing. Jacey appearing urine draining from the catheter without apparent difficulty. Extremities without cyanosis, clubbing. Posterior calves are nontender. Peripheral pulses are equal. Skin is warm and dry. Patient is awake, alert, cooperative with examiner. Course - Re-evaluation Re-evalutation: 03/31/20 14:58 Patient presents to the emergency department for evaluation. He states he is felt fevered at home, continues to feel poorly, despite being on antibiotic treatment for urinary tract infection. Urinary culture from his prior visit was evaluated by this physician. It seemed that he did grow Enterococcus faecalis, which was ampicillin sensitive. 3 g of Unasyn are ordered. Patient is stable at this time, awaiting blood cultures and other results. We will continue to monitor. 03/31/20 16:50 Patient is feeling improved. His laboratory investigations failed to reveal any significant leukocytosis or signs of acute renal failure. I will then send him home with Augmentin which should help with the Enterococcus faecalis infection. Blood cultures are still pending. Patient is to follow-up with primary care this week, return to the ED with worsening. - Vital Signs Vital signs: Temp Pulse Resp BP Pulse Ox 97.4 F 03/31/20 14:02 - Laboratory Result Diagrams: 03/31/20 15:15 03/31/20 15:15 Laboratory results interpreted by me: 03/31/20 03/31/20 03/31/20 15:15 15:15 15:40 Hgb 12.9 L RDW 19.1 H Sodium 135.8 L Glucose 158 H Total Protein 6.2 L Urine Protein 100 H Urine Blood LARGE H Ur Leukocyte Esterase MODERATE H Discharge - Discharge Clinical Impression: UTI (urinary tract infection) due to urinary indwelling Vo catheter Qualifiers: Indwelling urinary catheter type: cystostomy catheter Encounter type: initial encounter Qualified Code(s): T83.510A - Infection and inflammatory reaction due to cystostomy catheter, initial encounter; N39.0 - Urinary tract infection, site not specified Condition: Stable Disposition: HOME, SELF-CARE Instructions: Urinary Tract Infection ([facility]), Augmentin ([facility]) Additional Instructions: Take all of the Augmentin as prescribed until it is gone. Your blood cultures are still pending at this time. Please follow-up with your primary care provider this week. Return to the emergency department with worsening or new concerning symptoms of any sort. Referrals: ELSA AGUILERA MD [Primary Care Provider] - Follow up as needed
[2020-03-31 15:40] LABS: ABSOLUTE BASOPHILS # (AUTO) 0.1 10^3/uL (0.0-0.2); ABSOLUTE EOSINOPHILS # (AUTO) 0.3 10^3/uL (0.0-0.6); ABSOLUTE LYMPHOCYTES (AUTO) 1.5 10^3/uL (0.5-4.7); ABSOLUTE MONOCYTES (AUTO) 0.5 10^3/uL (0.1-1.4); BASOPHILS % (AUTO) 1.5 % (0-2); EOSINOPHILS % (AUTO) 3.9 % (0-6); HEMATOCRIT 38.7 % (37.9-51.0); HEMOGLOBIN 12.9 g/dL (13.5-17.0); LYMPHOCYTES % (AUTO) 20.4 % (13-45); MEAN CORPUSCULAR HEMOGLOBIN 27.2 pg (27.0-33.4); MEAN CORPUSCULAR HGB CONC 33.4 g/dL (32.0-36.0); MEAN CORPUSCULAR VOLUME 81 fl (80-97); MONOCYTES % (AUTO) 7.4 % (3-13); PLATELET COUNT 293 10^3/uL (150-450); RED BLOOD COUNT 4.76 10^6/uL (4.35-5.55); RED CELL DISTRIBUTION WIDTH 19.1 % (11.5-14.0); SEGMENTED NEUTROPHILS % (AUTO) 66.8 % (42-78); TOTAL CELLS COUNTED % (AUTO) 100 %; WHITE BLOOD COUNT 7.4 10^3/uL (4.0-10.5)
[2020-03-31 15:49] LABS: ALBUMIN 3.6 g/dL (3.5-5.0); ALKALINE PHOSPHATASE 110 U/L (38-126); ASPARTATE AMINO TRANSFERASE 24 U/L (17-59); BILIRUBIN,TOTAL 0.3 mg/dL (0.2-1.3); BLOOD UREA NITROGEN 8 mg/dL (7-20); CALCIUM 8.9 mg/dL (8.4-10.2); GLUCOSE 158 mg/dL (75-110); POTASSIUM 4.3 mmol/L (3.6-5.0); TOTAL PROTEIN 6.2 g/dL (6.3-8.2)
[2020-03-31 15:54] LABS: ANION GAP 6 (5-19); CARBON DIOXIDE 26 mmol/L (22-30); CHLORIDE 104 mmol/L (98-107)
[2020-03-31 16:02] LABS: APPEARANCE,URINE CLOUDY; BILIRUBIN,URINE NEGATIVE (NEGATIVE); CALCIUM OXALATE CRYSTALS,URINE RARE /HPF; COLOR,URINE YELLOW; GLUCOSE, URINE NEGATIVE (NEGATIVE); KETONES,URINE NEGATIVE (NEGATIVE); LEUKOCYTE ESTERASE,URINE MODERATE (NEGATIVE); NITRITE,URINE NEGATIVE (NEGATIVE); PROTEIN,URINE 100 mg/dL (NEGATIVE); UROBILINOGEN,URINE NEGATIVE mg/dL (<2.0)
[2020-03-31 16:50] VITALS: BP 130/88
[2020-03-31] MEDS ORDERED: KETOROLAC TROMETHAMINE INJ/PF 30 MG/1 ML SDV IV ONE (16:51)
== END 2020-03-31 17:09 | disposition home or self-care (01) ==
LOC: ER 14:01
DX: T83.510A Infection and inflammatory reaction due to cystostomy catheter, initial encounter (principal); N39.0 Urinary tract infection, site not specified; B95.2 Enterococcus as the cause of diseases classified elsewhere; Y84.6 Urinary catheterization as the cause of abnormal reaction of the patient, or of later complication, without mention of misadventure at the time of the procedure; R11.10 Vomiting, unspecified; R68.83 Chills (without fever); R10.30 Lower abdominal pain, unspecified; M54.5 Low back pain; F17.200 Nicotine dependence, unspecified, uncomplicated
CPT/HCPCS: 99283; 96361; 96375; 96365; 36415; 87040; 85025; 80053; 81001; J0295; J1885; J2270; J2405; J7030

== ENCOUNTER 2020-04-10 11:35 | Emergency (ER) | payer MEDICARE ==
--- NOTE | 2020-04-10 12:22 | ER Document Report ---
ED Medical Screen (RME) - General Chief Complaint: Urinary Problem Stated Complaint: RIGHT FLANK PAIN Time Seen by Provider: 04/10/20 12:17 Primary Care Provider: ELSA AGUILERA MD [Primary Care Provider] - Follow up as needed Mode of Arrival: Wheelchair Information source: Patient Notes: 49-year-old male patient states he has had nausea and vomiting abdominal flank and back pain since 930 last night. He states he has had multiple UTIs was on IV fluids and then Augmentin about a week and a half ago. He states he finished Augmentin and 930 last night he started with a normal nausea vomiting bladder spasms and flank pain. I have greeted and performed a rapid initial assessment of this patient. A comprehensive ED assessment and evaluation of the patient, analysis of test results and completion of medical decision making process will be conducted by an additional ED providers. TRAVEL OUTSIDE OF THE [place] IN LAST 30 DAYS: No - Related Data Allergies/Adverse Reactions: No Known Allergies Allergy (Verified 04/10/20 12:08) Past Medical History - Social History Chew tobacco use (# tins/day): No Frequency of alcohol use: None Drug Abuse: None Family history: Reviewed & Not Pertinent - Past Medical History Cardiac Medical History: Reports: Hx DVT Denies: Hx Atrial Fibrillation, Hx Congestive Heart Failure, Hx Coronary Artery Disease, Hx Heart Attack, Hx Hypercholesterolemia, Hx Hypertension Pulmonary Medical History: Denies: Hx Asthma, Hx Bronchitis, Hx COPD, Hx Pneumonia, Hx Sleep Apnea Neurological Medical History: Denies: Hx Cerebrovascular Accident, Hx Seizures Endocrine Medical History: Denies: Hx Diabetes Mellitus Type 1, Hx Diabetes Mellitus Type 2, Hx Hyperthyroidism, Hx Hypothyroidism Renal/ Medical History: Reports: Hx Kidney Stones. Denies: Hx Benign Prostatic Hyperplasia, Hx End Stage Renal Disease, Hx Peritoneal Dialysis GI Medical History: Denies: Hx Cirrhosis, Hx Crohn's Disease, Hx Gastroesophageal Reflux Disease, Hx Hepatitis, Hx Hiatal Hernia, Hx Irritable Bowel, Hx Liver Failure, Hx Pancreatitis, Hx Ulcer Musculoskeltal Medical History: Reports Hx Arthritis, Denies Hx Fibromyalgia, Denies Hx Gout, Denies Hx Muscular Dystrophy Skin Medical History: Denies Hx Eczema, Denies Hx Psoriasis Psychiatric Medical History: Reports: Hx Bipolar Disorder, Hx Borderline Personality Disorder, Hx Depression, Hx Post Traumatic Stress Disorder, Hx Schizophrenia Traumatic Medical History: Reports: Hx Fractures - left tibia Infectious Medical History: Denies: Hx Hepatitis Past Surgical History: Reports: Hx Cholecystectomy, Hx Genitourinary Surgery - Suprapubic catheter, Hx Orthopedic Surgery - left ankle, left shoulder, right knee, neck. Denies: Hx Appendectomy, Hx Bowel Surgery, Hx Colostomy, Hx Coronary Artery Bypass Graft, Hx Gastric Bypass Surgery, Hx Herniorrhaphy, Hx Pacemaker, Hx Tonsillectomy - Immunizations Immunizations up to date: Yes Hx Diphtheria, Pertussis, Tetanus Vaccination: Yes Physical Exam - Vital signs Vitals: Temp Pulse Resp BP Pulse Ox 97.8 F 89 18 125/90 H 98 04/10/20 11:41 04/10/20 11:41 04/10/20 11:41 04/10/20 11:41 04/10/20 11:41 Course - Vital Signs Vital signs: Temp Pulse Resp BP Pulse Ox 97.8 F 89 18 125/90 H 98 04/10/20 12:08 04/10/20 11:41 04/10/20 11:41 04/10/20 11:41 04/10/20 11:41 Doctor's Discharge - Discharge Referrals: ELSA AGUILERA MD [Primary Care Provider] - Follow up as needed
[2020-04-10] MEDS ORDERED: NORMAL SALINE 1000 ML 1,000 ML IV ONE (12:57)
[2020-04-10] MEDS ORDERED: ONDANSETRON HCL INJ/PF 4 MG/2 ML SDV IV ONE (13:00)
[2020-04-10] MEDS ORDERED: MORPHINE SULFATE 10 MG/ML INJ IV ONE (13:00)
--- NOTE | 2020-04-10 13:02 | ER Document Report ---
ED GI/ - General Chief Complaint: Urinary Problem Stated Complaint: RIGHT FLANK PAIN Time Seen by Provider: 04/10/20 12:17 Primary Care Provider: [facility] [Provider Group] - Follow up in 3-5 days [facility] [Provider Group] - Follow up in 3-5 days ELSA AGUILERA MD [Primary Care Provider] - Follow up as needed Mode of Arrival: Wheelchair Information source: Patient Notes: Patient presents complaining of suprapubic pain and right flank pain that started yesterday. Patient states he has had nausea vomiting x3 episodes today. Patient states he was recently treated for a UTI and finished his antibiotic 4 days ago. Patient without any fever. TRAVEL OUTSIDE OF THE [place] IN LAST 30 DAYS: No - HPI Patient complains to provider of: Abdominal pain, Flank pain, Vomiting Onset: Yesterday Timing/Duration: Gradual Quality of pain: Sharp Pain Level: 5 Location: Right flank, Suprapubic Associated symptoms: Nausea. denies: Fever, Urinary hesitancy, Urinary frequency, Urinary retention, Urinary urgency Exacerbated by: Denies Relieved by: Denies Similar symptoms previously: Yes Recently seen / treated by doctor: Yes - Related Data Allergies/Adverse Reactions: No Known Allergies Allergy (Verified 04/10/20 12:08) Past Medical History - General Information source: Patient - Social History Smoking Status: Never Smoker Chew tobacco use (# tins/day): No Frequency of alcohol use: None Drug Abuse: None Family History: Hypertension. denies: CAD, DM, Malignancy Patient has homicidal ideation: No - Past Medical History Cardiac Medical History: Reports: Hx DVT Denies: Hx Atrial Fibrillation, Hx Congestive Heart Failure, Hx Coronary Artery Disease, Hx Heart Attack, Hx Hypercholesterolemia, Hx Hypertension Neurological Medical History: Denies: Hx Cerebrovascular Accident, Hx Seizures Renal/ Medical History: Reports: Hx Kidney Stones, Other - Suprapubic cath Musculoskeletal Medical History: Reports Hx Arthritis Skin Medical History: Denies Hx Eczema, Denies Hx Psoriasis Psychiatric Medical History: Reports: Hx Bipolar Disorder, Hx Borderline Personality Disorder, Hx Depression, Hx Post Traumatic Stress Disorder, Hx Schizophrenia Traumatic Medical History: Reports: Hx Fractures - left tibia Infectious Medical History: Denies: Hx Hepatitis Past Surgical History: Reports: Hx Cholecystectomy, Hx Genitourinary Surgery - Suprapubic catheter, Hx Orthopedic Surgery - left ankle, left shoulder, right knee, neck. Denies: Hx Appendectomy, Hx Bowel Surgery, Hx Colostomy, Hx Coronary Artery Bypass Graft, Hx Gastric Bypass Surgery, Hx Herniorrhaphy, Hx Pacemaker, Hx Tonsillectomy - Immunizations Immunizations up to date: Yes Hx Diphtheria, Pertussis, Tetanus Vaccination: Yes Review of Systems - Review of Systems Constitutional: Recent illness - UTI. denies: Fever EENT: No symptoms reported Cardiovascular: No symptoms reported Respiratory: No symptoms reported. denies: Cough Gastrointestinal: Abdominal pain, Nausea, Vomiting. denies: Diarrhea Genitourinary: Dysuria, Flank pain. denies: Frequency Male Genitourinary: No symptoms reported Musculoskeletal: Back pain Skin: No symptoms reported Hematologic/Lymphatic: No symptoms reported Neurological/Psychological: No symptoms reported Physical Exam - Vital signs Vitals: Temp Pulse Resp BP Pulse Ox 97.8 F 89 18 125/90 H 98 04/10/20 11:41 04/10/20 11:41 04/10/20 11:41 04/10/20 11:41 04/10/20 11:41 - General General appearance: Appears well, Alert In distress: None - HEENT Head: Normocephalic, Atraumatic Eyes: Normal Conjunctiva: Normal Nasal: Normal Mouth/Lips: Normal Mucous membranes: Normal Neck: Normal, Supple. No: Lymphadenopathy - Respiratory Respiratory status: No respiratory distress Chest status: Nontender Breath sounds: Normal. No: Rales, Rhonchi, Stridor, Wheezing Chest palpation: Normal - Cardiovascular Rhythm: Regular Heart sounds: S1 appreciated, S2 appreciated - Abdominal Inspection: Obese Distension: No distension Bowel sounds: Normal Tenderness: Tender - suprapubic Organomegaly: No organomegaly - Back Back: CVA tenderness - right - Extremities General upper extremity: Normal inspection, Normal strength General lower extremity: Normal inspection, Normal strength - Neurological Neuro grossly intact: Yes Cognition: Normal Holly Coma Scale Eye Opening: Spontaneous Holly Coma Scale Verbal: Oriented Holly Coma Scale Motor: Obeys Commands Holly Coma Scale Total: 15 - Psychological Associated symptoms: Normal affect, Normal mood - Skin Skin Temperature: Warm Skin Moisture: Dry Skin Color: Normal Course - Re-evaluation Re-evalutation: 04/10/20 14:17 Reviewed patient's laboratory test results. Patient with actually improved urinalysis as compared to previous ER visit. Patient without any fever or leukocytosis, no electrolyte derangements. Patient complains of continued tenderness and nausea although no emesis objectively noted. Patient repeatedly asking for pain medications. Review of controlled substance database demonstrates that patient's had greater than 5 opioid or sedative providers in the past 2 years and greater than 5 dispensing pharmacies in a 90-day periord over the past 2 years. Patient does acknowledge chronic pain due to his transverse myelitis. No concern for obstructive uropathy as patient had a CT scan performed earlier this month which did not show any calculus. Patient nontoxic in appearance, will plan for discharge after IV fluids have infused at this time. Patient encouraged to follow-up with pain management provider for chronic pain symptoms. - Vital Signs Vital signs: Temp Pulse Resp BP Pulse Ox 98.6 F 84 14 142/78 H 98 04/10/20 14:57 04/10/20 14:57 04/10/20 14:57 04/10/20 14:57 04/10/20 14:57 - Laboratory Result Diagrams: 04/10/20 13:15 04/10/20 13:15 Laboratory results interpreted by me: 04/10/20 04/10/20 04/10/20 13:15 13:15 13:15 Hgb 13.3 L RDW 19.0 H Sodium 134.7 L Glucose 148 H Urine Protein 100 H Urine Glucose (UA) >=500 H Ur Leukocyte Esterase LARGE H Labs- All tests 24 hr 04/10/20 04/10/20 04/10/20 13:15 13:15 13:15 WBC 5.8 RBC 4.82 Hgb 13.3 L Hct 39.3 MCV 82 MCH 27.6 MCHC 33.9 RDW 19.0 H Plt Count 213 Lymph % (Auto) 20.4 [place] % (Auto) 7.8 Eos % (Auto) 2.6 Baso % (Auto) 1.2 Absolute Neuts (auto) 4.0 Absolute Lymphs (auto) 1.2 Absolute Monos (auto) 0.5 Absolute Eos (auto) 0.1 Absolute Basos (auto) 0.1 Seg Neutrophils % 68.0 Sodium 134.7 L Potassium 3.9 Chloride 103 Carbon Dioxide 26 Anion Gap 6 BUN 8 Creatinine 0.65 Est GFR ( Amer) > 60 Est GFR (MDRD) Non-Af > 60 Glucose 148 H Calcium 8.7 Total Bilirubin 0.3 Direct Bilirubin 0.0 Neonat Total Bilirubin Not Reportable Neonat Direct Bilirubin Not Reportable Neonat Indirect Bili Not Reportable AST 43 ALT 44 Alkaline Phosphatase 126 Total Protein 6.4 Albumin 3.8 Lipase 92.0 Urine Color YELLOW Urine Appearance CLOUDY Urine pH 5.0 Ur Specific [place] 1.014 Urine Protein 100 H Urine Glucose (UA) >=500 H Urine Ketones NEGATIVE Urine Blood NEGATIVE Urine Nitrite NEGATIVE Urine Bilirubin NEGATIVE Urine Urobilinogen NEGATIVE Ur Leukocyte Esterase LARGE H Urine WBC (Auto) 28 Urine RBC (Auto) 5 Squamous Epi Cells Auto <1 Urine Mucus (Auto) RARE Urine Ascorbic Acid NEGATIVE Compared laboratory tests from previous ER visit - Diagnostic Test Radiology reviewed: Reports reviewed - CT scan performed earlier this month Discharge - Discharge Clinical Impression: Nausea, Right flank pain UTI (urinary tract infection) Qualifiers: Urinary tract infection type: site unspecified Hematuria presence: without hematuria Qualified Code(s): N39.0 - Urinary tract infection, site not specified Condition: Stable Disposition: HOME, SELF-CARE Instructions: Antinausea Medication ([facility]), Augmentin ([facility]), Urinary Anesthetic Agent ([facility]), Urinary Tract Infection ([facility]) Additional Instructions: Return immediately for any new or worsening symptoms Followup with your primary care provider, call tomorrow to make a followup appointment Follow-up with a urologist for further management, on Sunday for an appointment Follow-up with pain management for your chronic pain symptoms. Prescriptions: Amoxicillin/Potassium Clav [Augmentin 875-125 Tablet] 1 tab PO BID #10 tab Promethazine HCl [Phenergan 25 mg Supp.rect] 1 supp MO Q6H PRN #12 supp.rect PRN Reason: Phenazopyridine HCl [Pyridium 200 mg Tablet] 200 mg PO TID #15 tablet Referrals: ELSA AGUILERA MD [Primary Care Provider] - Follow up as needed [facility] [Provider Group] - Follow up in 3-5 days [facility] [Provider Group] - Follow up in 3-5 days
[2020-04-10 13:32] LABS: ABSOLUTE BASOPHILS # (AUTO) 0.1 10^3/uL (0.0-0.2); ABSOLUTE EOSINOPHILS # (AUTO) 0.1 10^3/uL (0.0-0.6); ABSOLUTE LYMPHOCYTES (AUTO) 1.2 10^3/uL (0.5-4.7); ABSOLUTE MONOCYTES (AUTO) 0.5 10^3/uL (0.1-1.4); BASOPHILS % (AUTO) 1.2 % (0-2); EOSINOPHILS % (AUTO) 2.6 % (0-6); HEMATOCRIT 39.3 % (37.9-51.0); HEMOGLOBIN 13.3 g/dL (13.5-17.0); LYMPHOCYTES % (AUTO) 20.4 % (13-45); MEAN CORPUSCULAR HEMOGLOBIN 27.6 pg (27.0-33.4); MEAN CORPUSCULAR HGB CONC 33.9 g/dL (32.0-36.0); MEAN CORPUSCULAR VOLUME 82 fl (80-97); MONOCYTES % (AUTO) 7.8 % (3-13); PLATELET COUNT 213 10^3/uL (150-450); RED BLOOD COUNT 4.82 10^6/uL (4.35-5.55); TOTAL CELLS COUNTED % (AUTO) 100 %; WHITE BLOOD COUNT 5.8 10^3/uL (4.0-10.5)
[2020-04-10 13:40] LABS: APPEARANCE,URINE CLOUDY; BILIRUBIN,URINE NEGATIVE (NEGATIVE); COLOR,URINE YELLOW; GLUCOSE, URINE >=500 mg/dL (NEGATIVE); KETONES,URINE NEGATIVE (NEGATIVE); LEUKOCYTE ESTERASE,URINE LARGE (NEGATIVE); NITRITE,URINE NEGATIVE (NEGATIVE); PROTEIN,URINE 100 mg/dL (NEGATIVE); URINE SPECIFIC GRAVITY 1.014; UROBILINOGEN,URINE NEGATIVE mg/dL (<2.0)
[2020-04-10 13:50] LABS: ALBUMIN 3.8 g/dL (3.5-5.0); ALKALINE PHOSPHATASE 126 U/L (38-126); ANION GAP 6 (5-19); ASPARTATE AMINO TRANSFERASE 43 U/L (17-59); BILIRUBIN,TOTAL 0.3 mg/dL (0.2-1.3); BLOOD UREA NITROGEN 8 mg/dL (7-20); CALCIUM 8.7 mg/dL (8.4-10.2); CARBON DIOXIDE 26 mmol/L (22-30); CHLORIDE 103 mmol/L (98-107); GLUCOSE 148 mg/dL (75-110); POTASSIUM 3.9 mmol/L (3.6-5.0); TOTAL PROTEIN 6.4 g/dL (6.3-8.2)
[2020-04-10] MEDS ORDERED: PHENAZOPYRIDINE HCL 200 MG TABLET PO ONE (14:16)
[2020-04-10] MEDS ORDERED: PROMETHAZINE HCL 25 MG TABLET PO ONE (14:16)
[2020-04-10] MEDS ORDERED: AMOXICILLIN TR/POT CLAVULANATE 875-125 MG TAB PO ONE (14:16)
[2020-04-10] MEDS ORDERED: KETOROLAC TROMETHAMINE INJ/PF 30 MG/1 ML SDV IV ONE (14:17)
[2020-04-10 14:58] VITALS: BP 142/78
== END 2020-04-10 14:57 | disposition home or self-care (01) ==
LOC: ER 11:35
DX: N39.0 Urinary tract infection, site not specified (principal); R11.0 Nausea; M54.9 Dorsalgia, unspecified; G37.3 Acute transverse myelitis in demyelinating disease of central nervous system; Z87.442 Personal history of urinary calculi; Z90.49 Acquired absence of other specified parts of digestive tract
CPT/HCPCS: 99284; 96361; 96374; 96375; 36415; 87086; 83690; 85025; 87088; 80053; 81001; 87186; J1885; J2270; A9270 ×2; J2405; J7030; J3490

== ENCOUNTER 2020-04-13 14:13 | Emergency (ER) | payer MEDICARE ==
--- NOTE | 2020-04-13 14:37 | ER Document Report ---
ED GI/ - General Stated Complaint: BLOOD IN URINE Time Seen by Provider: 04/13/20 14:19 Primary Care Provider: [facility] [Provider Group] - Follow up in 3-5 days ELSA AGUILERA MD [Primary Care Provider] - Follow up as needed Notes: Patient is a 49-year-old male who presents to the emergency department with a chief complaint of right flank pain. Patient is well-known to the emergency department and was seen here 3 days ago for similar symptoms. He was started on Pyridium, Augmentin, and oxybutynin to help with his symptoms. Urine culture was sent and his urine grew back enterococcus faecalis. This is susceptible to ampicillin, daptomycin, nitrofurantoin, penicillin, and vancomycin. It was resistant to levofloxacin and tetracycline. States that he finished all his medications. Patient is stating that he is getting urine out of his penis, but he has a suprapubic catheter. Patient has a history of neurogenic bladder and transverse myelitis. During my assessment, I noticed that the patient also had purulent drainage from his right eye. States that his eye was glued shut this morning. TRAVEL OUTSIDE OF THE [place] IN LAST 30 DAYS: No - Related Data Allergies/Adverse Reactions: No Known Allergies Allergy (Verified 04/10/20 12:08) Past Medical History - General Information source: Patient - Social History Smoking Status: Never Smoker Family History: Hypertension. denies: CAD, DM, Malignancy - Past Medical History Cardiac Medical History: Reports: Hx DVT Denies: Hx Atrial Fibrillation, Hx Congestive Heart Failure, Hx Coronary Artery Disease, Hx Heart Attack, Hx Hypercholesterolemia, Hx Hypertension Pulmonary Medical History: Denies: Hx Asthma, Hx Bronchitis, Hx COPD, Hx Pneumonia, Hx Sleep Apnea Neurological Medical History: Denies: Hx Cerebrovascular Accident, Hx Seizures Endocrine Medical History: Denies: Hx Diabetes Mellitus Type 1, Hx Diabetes Mellitus Type 2, Hx Hyperthyroidism, Hx Hypothyroidism Renal/ Medical History: Reports: Hx Kidney Stones. Denies: Hx Benign Prostatic Hyperplasia, Hx End Stage Renal Disease, Hx Peritoneal Dialysis GI Medical History: Denies: Hx Cirrhosis, Hx Crohn's Disease, Hx Gastroeso phageal Reflux Disease, Hx Hepatitis, Hx Hiatal Hernia, Hx Irritable Bowel, Hx Liver Failure, Hx Pancreatitis, Hx Ulcer Musculoskeletal Medical History: Reports Hx Arthritis, Denies Hx Fibromyalgia, Denies Hx Gout, Denies Hx Muscular Dystrophy Skin Medical History: Denies Hx Eczema, Denies Hx Psoriasis Psychiatric Medical History: Reports: Hx Bipolar Disorder, Hx Borderline Personality Disorder, Hx Depression, Hx Post Traumatic Stress Disorder, Hx Schizophrenia Traumatic Medical History: Reports: Hx Fractures - left tibia Infectious Medical History: Denies: Hx Hepatitis Past Surgical History: Reports: Hx Cholecystectomy, Hx Genitourinary Surgery - Suprapubic catheter, Hx Orthopedic Surgery - left ankle, left shoulder, right knee, neck. Denies: Hx Appendectomy, Hx Bowel Surgery, Hx Colostomy, Hx Coronary Artery Bypass Graft, Hx Gastric Bypass Surgery, Hx Herniorrhaphy, Hx Pacemaker, Hx Tonsillectomy - Immunizations Immunizations up to date: Yes Hx Diphtheria, Pertussis, Tetanus Vaccination: Yes Review of Systems - Review of Systems Notes: REVIEW OF SYSTEMS: CONSTITUTIONAL : Denies recent illness. Denies recent unintentional weight loss. Denies fever, chills, or sweats. EENT: See HPI. Denies nasal or sinus congestion. CARDIOVASCULAR: Denies chest pain. RESPIRATORY: Denies shortness of breath, cough, congestion, difficulty breathing, or wheezing. GASTROINTESTINAL: Denies nausea, vomiting, and diarrhea. Denies abdominal pain. Denies constipation. GENITOURINARY: See HPI. MUSCULOSKELETAL: Denies neck and back pain. Denies joint pain or swelling. SKIN: Denies rash, itchiness, or lesions HEMATOLOGIC : Denies easy bruising or bleeding. LYMPHATIC: Denies swollen, painful, enlarged glands. NEUROLOGICAL: Denies no numbness or tingling denies weakness. Denies headache. Denies altered mental status. Denies alteration in speech. PSYCHIATRIC: Denies stress, anxiety, alteration in sleep patterns, or depression. All other systems reviewed and negative. Physical Exam - Vital signs Vitals: Temp 99.1 F 04/13/20 14:13 - Notes Notes: PHYSICAL EXAMINATION: GENERAL: Appears well, healthy, well-nourished, no acute distress. HEAD: Normocephalic, atraumatic. EYES: PERRL, conjunctiva injected with purulent drainage on the right, all extraocular movements intact, sclera nonicteric ENT: Moist mucous membranes. NECK: Supple, no noticeable swelling, redness, rash. Normal range of motion. LUNGS: Equal breath sounds bilaterally and clear to auscultation. No wheezes rales or rhonchi. CARDIOVASCULAR: S1-S2, regular rate, regular rhythm. Radial pulses 2+, normal. ABDOMEN: Normoactive bowel sounds. Soft, mildly tender mid lower abdomen, no g uarding, no rebound tenderness, and no masses palpated. Suprapubic catheter in place EXTREMITIES: Normal strength and range of motion, no pitting or edema. No cyanosis. NEUROLOGICAL: Moves all extremities upon command. Strength 5/5 in all extremities. PSYCH: Normal mood, normal affect. SKIN: Warm, dry. No rash, lesions, ulcerations noted. Normal skin turgor. BACK: Bilateral CVA tenderness. Course - Re-evaluation Re-evalutation: 04/13/20 16:48 Patient's hematology does not show a leukocytosis. His hemoglobin is 13.3, which is his normal. Chemistries are unremarkable. Urinalysis shows large amount of leukocytes still, but I suspect this is due to the patient having the same suprapubic catheter for over a month. Patient also has calcium oxalate crystals, which might represent a stone that has been passed. On ultrasound, they noted that he has some left renal pelvis dilation. We will give the patient a little bit of pain medicine and will change out his suprapubic catheter. He is nontoxic in appearance. 04/13/20 17:26 I changed the patient's suprapubic catheter. Tolerated the procedure well. Urine was seen and the balloon was inflated. Discussed this case with Dr. Camacho, my attending. Will start the patient on Macrobid. Will refer the patient to [facility] urology for close follow-up, as he states he does not have a urologist at this time. He is in agreement with this plan. Follow-up pr ecautions were given. Verbal discharge instructions were given to the patient. They verbalized understanding. They are stable for discharge. 04/14/20 10:57 I realized that the patient did not have discharge instructions on his eyedrops for his conjunctivitis. I called the patient and gave him verbal instructions on how to use the Polytrim eyedrops. Instructed him to use the eyedrops as indicated in the orders. Patient states that the nurse told him how to use medication. I advised him to only use them for 1 week. He is in agreement with this plan. Patient reports that he is feeling much better and that his urine is draining clear now. He expressed appreciation for his care. 04/14/20 11:03 - Vital Signs Vital signs: Temp Pulse Resp BP Pulse Ox 98.2 F 81 18 129/77 H 98 04/13/20 17:43 04/13/20 17:43 04/13/20 17:43 04/13/20 17:43 04/13/20 17:43 - Laboratory Result Diagrams: 04/13/20 14:40 04/13/20 14:40 Laboratory results interpreted by me: 04/13/20 04/13/20 04/13/20 14:20 14:40 14:40 Hgb 13.3 L RDW 18.3 H Glucose 119 H Urine Protein >=500 H Urine Glucose (UA) 150 H Urine Ketones 25 H Urine Blood MODERATE H Urine Bilirubin MODERATE H Urine Urobilinogen 2.0 H Ur Leukocyte Esterase LARGE H Discharge - Discharge Clinical Impression: Right flank pain, Nausea UTI (urinary tract infection) due to urinary indwelling Vo catheter Qualifiers: Indwelling urinary catheter type: unspecified Encounter type: subsequent encounter Qualified Code(s): T83.511D - Infection and inflammatory reaction due to indwelling urethral catheter, subsequent encounter Conjunctivitis Qualifiers: Conjunctivitis type: acute Acute conjunctivitis type: bacterial Laterality: right Qualified Code(s): H10.31 - Unspecified acute conjunctivitis, right eye Condition: Stable Disposition: HOME, SELF-CARE Instructions: Urinary Tract Infection ([facility]) Additional Instructions: You were seen today in the emergency department for flank pain. You can still have a urinary tract infection. Please take the antibiotics as prescribed. Please follow-up with urology in regards to this visit. Prescriptions: Nitrofurantoin Monohyd/M-Cryst [Macrobid 100 mg Capsule] 100 mg PO BID 10 Days #20 cap Promethazine HCl [Phenergan 25 mg Tablet] 1 - 2 tab PO Q6H PRN #15 tablet PRN Reason: Referrals: ELSA AGUILERA MD [Primary Care Provider] - Follow up as needed [facility] [Provider Group] - Follow up in 3-5 days
[2020-04-13] MEDS ORDERED: NORMAL SALINE 1000 ML 1,000 ML IV ONE (14:40)
[2020-04-13] MEDS ORDERED: ONDANSETRON HCL INJ/PF 4 MG/2 ML SDV IV ONE (14:41)
[2020-04-13] MEDS ORDERED: KETOROLAC TROMETHAMINE INJ/PF 30 MG/1 ML SDV IV ONE (14:41)
[2020-04-13] MEDS ORDERED: POLYMYXIN B SULFATE/TMP OPH SOLN (10 ML/ER DISP) OD ONE (14:42)
[2020-04-13 14:50] LABS: ABSOLUTE BASOPHILS # (AUTO) 0.1 10^3/uL (0.0-0.2); ABSOLUTE EOSINOPHILS # (AUTO) 0.2 10^3/uL (0.0-0.6); ABSOLUTE LYMPHOCYTES (AUTO) 1.3 10^3/uL (0.5-4.7); ABSOLUTE MONOCYTES (AUTO) 0.8 10^3/uL (0.1-1.4); ABSOLUTE NEUT (AUTO) 4.8 10^3/uL (1.7-8.2); BASOPHILS % (AUTO) 1.2 % (0-2); EOSINOPHILS % (AUTO) 2.8 % (0-6); HEMATOCRIT 39.1 % (37.9-51.0); HEMOGLOBIN 13.3 g/dL (13.5-17.0); LYMPHOCYTES % (AUTO) 18.7 % (13-45); MEAN CORPUSCULAR HEMOGLOBIN 27.7 pg (27.0-33.4); MEAN CORPUSCULAR HGB CONC 34.1 g/dL (32.0-36.0); MEAN CORPUSCULAR VOLUME 81 fl (80-97); MONOCYTES % (AUTO) 10.8 % (3-13); PLATELET COUNT 243 10^3/uL (150-450); RED BLOOD COUNT 4.82 10^6/uL (4.35-5.55); RED CELL DISTRIBUTION WIDTH 18.3 % (11.5-14.0); SEGMENTED NEUTROPHILS % (AUTO) 66.5 % (42-78); TOTAL CELLS COUNTED % (AUTO) 100 %; WHITE BLOOD COUNT 7.2 10^3/uL (4.0-10.5)
[2020-04-13 15:02] LABS: APPEARANCE,URINE CLOUDY; BILIRUBIN,URINE MODERATE (NEGATIVE); GLUCOSE, URINE 150 mg/dL (NEGATIVE); KETONES,URINE 25 mg/dL (NEGATIVE); LEUKOCYTE ESTERASE,URINE LARGE (NEGATIVE); NITRITE,URINE NEGATIVE (NEGATIVE); PROTEIN,URINE >=500 mg/dL (NEGATIVE); URINE SPECIFIC GRAVITY 1.031
[2020-04-13 15:03] LABS: ADD MANUAL MICROSCOPIC YES; COLOR,URINE RED
[2020-04-13 15:04] LABS: RBC,URINE TOO NUMEROUS TO CNT /HPF
[2020-04-13 15:06] LABS: CALCIUM OXALATE CRYSTALS,UR FEW /HPF
[2020-04-13 15:07] LABS: ALBUMIN 3.9 g/dL (3.5-5.0); ALKALINE PHOSPHATASE 125 U/L (38-126); ANION GAP 8 (5-19); ASPARTATE AMINO TRANSFERASE 23 U/L (17-59); BILIRUBIN,TOTAL 0.4 mg/dL (0.2-1.3); BLOOD UREA NITROGEN 10 mg/dL (7-20); CALCIUM 9.6 mg/dL (8.4-10.2); CARBON DIOXIDE 26 mmol/L (22-30); CHLORIDE 104 mmol/L (98-107); GLUCOSE 119 mg/dL (75-110); POTASSIUM 3.8 mmol/L (3.6-5.0); TOTAL PROTEIN 6.5 g/dL (6.3-8.2)
--- NOTE | 2020-04-13 16:11 | RADIOLOGY REPORT (SQ) ---
EXAM DESCRIPTION: U/S RETROPERITON (RENAL/AORTA) IMAGES COMPLETED DATE/TIME: 04/13/2020 3:58 pm REASON FOR STUDY: Right flank pain; hematuria COMPARISON: None. TECHNIQUE: Dynamic and static grayscale images acquired of the kidneys and bladder and recorded on P ACS. Additional selected color Doppler and spectral images recorded. LIMITATIONS: None. FINDINGS: RIGHT KIDNEY: Normal size, 11.3 cm. Normal echogenicity. No suspicious masses. No signi ficant calcifications. No hydronephrosis. LEFT KIDNEY: Normal size, 12.8 cm. Normal echogenicity. No suspicious masses. No significant calc ifications. The renal pelvis is mildly dilated at 10 mm. BLADDER: The catheter is present in the bladder. OTHER FINDINGS: No other significant finding. IMPRESSION: There is mild pelviectasis on the left. TECHNICAL DOCUMENTATION: JOB ID: [id number] [address] [employer]- All Rights Reserved Reading location - IP/workstation name: [email or web address]
[2020-04-13] MEDS ORDERED: MORPHINE SULFATE 10 MG/ML INJ IV ONE (16:19)
[2020-04-13] MEDS ORDERED: HYDROCODONE/ACETAMINOPHEN 5-325 MG (6 TAB/ER DISP) PO PRN (17:32)
[2020-04-13 18:17] VITALS: BP 129/77
== END 2020-04-13 18:17 | disposition home or self-care (01) ==
LOC: ER 14:13
DX: T83.511A Infection and inflammatory reaction due to indwelling urethral catheter, initial encounter (principal); N39.0 Urinary tract infection, site not specified; Y84.6 Urinary catheterization as the cause of abnormal reaction of the patient, or of later complication, without mention of misadventure at the time of the procedure; H10.31 Unspecified acute conjunctivitis, right eye; R11.0 Nausea; R10.9 Unspecified abdominal pain; N31.9 Neuromuscular dysfunction of bladder, unspecified; Z87.442 Personal history of urinary calculi
CPT/HCPCS: 99284; 96361; 96374; 96375; 36415; 85025; 80053; 81001; 76770; A9270 ×2; J1885; J2270; J2405; J7030; J3490

== ENCOUNTER 2020-04-25 10:09 | Emergency (ER) | payer MEDICARE ==
[2020-04-25] MEDS ORDERED: HYDROCODONE/ACETAMINOPHEN 5-325 MG TABLET PO ONE (10:49)
--- NOTE | 2020-04-25 12:05 | RADIOLOGY REPORT (SQ) ---
EXAM DESCRIPTION: ANKLE LEFT COMPLETE; FOOT LEFT COMPLETE IMAGES COMPLETED DATE/TIME: 04/25/2020 11:52 am REASON FOR STUDY: injury COMPARISON: 10/07/2018 EXAM PARAMETERS: NUMBER OF VIEWS: Six views. TECHNIQUE: AP, lateral and oblique radiographic images acquired of the left foot and ankle. LIMITATIONS: None. FINDINGS: MINERALIZATION: Osteopenia. BONES: No acute fracture or dislocation. There is been fusion of the calcaneus -talus -distal fibula . Fixation hardware shows a fractured screw at the upper distal tibia-fibular syndesmosis, this was likely present in 2018. Remainder of the hardware appears intact. JOINTS: No effusion. SOFT TISSUES: No significant soft tissue swelling. No radiopaque foreign body. OTHER: No other significant finding. IMPRESSION: No acute fracture or dislocation. TECHNICAL DOCUMENTATION: JOB ID: [id number] 2010 [employer]- All Rights Reserved Reading location - IP/workstation name: [email or web address]
--- NOTE | 2020-04-25 12:05 | RADIOLOGY REPORT (SQ) ---
EXAM DESCRIPTION: ANKLE LEFT COMPLETE; FOOT LEFT COMPLETE IMAGES COMPLETED DATE/TIME: 04/25/2020 11:52 am REASON FOR STUDY: injury COMPARISON: 10/07/2018 EXAM PARAMETERS: NUMBER OF VIEWS: Six views. TECHNIQUE: AP, lateral and oblique radiographic images acquired of the left foot and ankle. LIMITATIONS: None. FINDINGS: MINERALIZATION: Osteopenia. BONES: No acute fracture or dislocation. There is been fusion of the calcaneus -talus -distal fibula . Fixation hardware shows a fractured screw at the upper distal tibia-fibular syndesmosis, this was likely present in 2018. Remainder of the hardware appears intact. JOINTS: No effusion. SOFT TISSUES: No significant soft tissue swelling. No radiopaque foreign body. OTHER: No other significant finding. IMPRESSION: No acute fracture or dislocation. TECHNICAL DOCUMENTATION: JOB ID: [id number] 2010 [employer]- All Rights Reserved Reading location - IP/workstation name: [email or web address]
--- NOTE | 2020-04-25 12:09 | RADIOLOGY REPORT (SQ) ---
EXAM DESCRIPTION: KNEE LEFT 3 VIEWS IMAGES COMPLETED DATE/TIME: 04/25/2020 11:52 am REASON FOR STUDY: pain COMPARISON: None. EXAM PARAMETERS: NUMBER OF VIEWS: Three views. TECHNIQUE: AP, lateral and oblique radiographic images acquired of the left knee. LIMITATIONS: None. FINDINGS: MINERALIZATION: Normal. BONES: No acute fracture or dislocation. No worrisome bone lesions. JOINTS: No effusion. SOFT TISSUES: No significant soft tissue swelling. No radiopaque foreign body. OTHER: No other significant finding. IMPRESSION: No acute fracture or dislocation. TECHNICAL DOCUMENTATION: JOB ID: [id number] [id number] 2010 [employer]- All Rights Reserved Reading location - IP/workstation name: [email or web address]
--- NOTE | 2020-04-25 12:30 | ER Document Report ---
Entered by DEANNA SANTACRUZ SCRIBE 04/25/20 1052 Acting as scribe for:BIGG HARMAN, ED Extremity Problem, Lower - General Chief Complaint: Ankle Injury Stated Complaint: LEFT ANKLE PAIN,SWELLING Time Seen by Provider: 04/25/20 10:40 Primary Care Provider: ELSA AGUILERA MD [Primary Care Provider] - Follow up as needed Information source: Patient Notes: This 49 year old male patient presents to the emergency department today with complaints of pain in his left ankle. Patient report fusion of his left ankle around x5 years ago. Patient states he has injured his left ankle/knee/foot today at home and the pain is unbearable. Patient reports a history of transverse myelitis and it is usually hard for him to move around. TRAVEL OUTSIDE OF THE [place] IN LAST 30 DAYS: No - Related Data Allergies/Adverse Reactions: No Known Allergies Allergy (Verified 04/10/20 12:08) Past Medical History - General Information source: Patient - Social History Smoking Status: Unknown if Ever Smoked Family History: Reviewed & Not Pertinent, Hypertension - Past Medical History Cardiac Medical History: Reports: Hx DVT Neurological Medical History: Reports: Other - Transverse myelitis Renal/ Medical History: Reports: Hx Kidney Stones Musculoskeletal Medical History: Reports Hx Arthritis Psychiatric Medical History: Reports: Hx Bipolar Disorder, Hx Borderline Personality Disorder, Hx Depression, Hx Post Traumatic Stress Disorder, Hx S chizophrenia Traumatic Medical History: Reports: Hx Fractures - left tibia Past Surgical History: Reports: Hx Cholecystectomy, Hx Genitourinary Surgery - Suprapubic catheter, Hx Orthopedic Surgery - left ankle, left shoulder, right knee, neck - Immunizations Immunizations up to date: Yes Hx Diphtheria, Pertussis, Tetanus Vaccination: Yes Review of Systems - Review of Systems Constitutional: No symptoms reported EENT: No symptoms reported Cardiovascular: No symptoms reported Respiratory: No symptoms reported Gastrointestinal: No symptoms reported Genitourinary: No symptoms reported Male Genitourinary: No symptoms reported Musculoskeletal: See HPI, Other - Pain - L ankle/foot/knee Skin: No symptoms reported Hematologic/Lymphatic: No symptoms reported Neurological/Psychological: No symptoms reported -: Yes All other systems reviewed and negative Physical Exam - Vital signs Vitals: Temp Pulse Resp BP Pulse Ox 98.2 F 95 14 118/81 98 04/25/20 10:15 04/25/20 10:15 04/25/20 10:15 04/25/20 10:15 04/25/20 10:15 - General General appearance: Appears well, Alert - HEENT Head: Normocephalic, Atraumatic Eyes: Normal Pupils: PERRL - Respiratory Respiratory status: No respiratory distress Chest status: Nontender Breath sounds: Normal Chest palpation: Normal - Cardiovascular Rhythm: Regular Heart sounds: Normal auscultation Murmur: No - Abdominal Inspection: Normal, Other - suprapubic catheter Distension: No distension Bowel sounds: Normal Tenderness: Nontender - Extremities General upper extremity: Normal inspection. No: Edema Notes: Tenderness with palpation to the left knee. No soft tissue swelling. Healed scar from surgery on the left lateral ankle. Soft tissue swelling and ecchymosis of the lateral left ankle. No deformity. Tenderness with palpation to the lateral/medial left foot. - Neurological Neuro grossly intact: Yes Cognition: Normal Orientation: AAOx4 Speech: Normal - Psychological Associated symptoms: Normal affect, Normal mood - Skin Skin Temperature: Warm Skin Moisture: Dry Skin Color: Normal Course - Re-evaluation Re-evalutation: 04/25/20 12:37 MDM 49 year old male injured left foot and ankle and knee earlier today. No other injury. Transverse myelitis limits his mobility as does previous left ankle surgery/ fusion. Xrays here are unremarkable for fx and crutches are not practicle with his limited mobility. He has pcp and will follow up with them. Understands to return here for worsening. PO norco left him still with pain so will supplement with MS IM shot. - Vital Signs Vital signs: Temp Pulse Resp BP Pulse Ox 98.3 F 95 14 118/81 98 04/25/20 10:40 04/25/20 10:15 04/25/20 10:15 04/25/20 10:15 04/25/20 10:15 Discharge - Discharge Clinical Impression: Contusion of left foot, initial encounter Contusion of left ankle Qualifiers: Encounter type: initial encounter Qualified Code(s): S90.02XA - Contusion of left ankle, initial encounter Left knee pain Qualifiers: Chronicity: acute Qualified Code(s): M25.562 - Pain in left knee Condition: Good Disposition: HOME, SELF-CARE Instructions: Ice & Elevation ([facility]), Ice Packs ([facility]), Ice Massage ([facility]), Contusion ([facility]) Additional Instructions: Rest, ice and elevate the left leg. Call your doctor for follow up. Call Sunday. Please return here for increased pain or other concerns. Take your medicine as directed. Pain medicine has been transmitted to [facility]. Referrals: ELSA AGUILERA MD [Primary Care Provider] - Follow up as needed I personally performed the services described in the documentation, reviewed and edited the documentation which was dictated to the scribe in my presence, and it accurately records my words and actions.
[2020-04-25] MEDS ORDERED: MORPHINE SULFATE 10 MG/ML INJ IM ONE (12:32)
[2020-04-25 12:59] VITALS: BP 121/82
== END 2020-04-25 13:00 | disposition home or self-care (01) ==
LOC: ER 10:09
DX: S90.32XA Contusion of left foot, initial encounter (principal); S90.02XA Contusion of left ankle, initial encounter; M25.562 Pain in left knee; M79.672 Pain in left foot; M25.572 Pain in left ankle and joints of left foot; M79.89 Other specified soft tissue disorders; Z98.890 Other specified postprocedural states; X58.XXXA Exposure to other specified factors, initial encounter
CPT/HCPCS: 99283; 96372; 73610; 73630; 73562; J2270; A9270

== ENCOUNTER 2020-04-26 16:44 | Emergency (ER) | payer MEDICARE ==
--- NOTE | 2020-04-26 17:15 | ER Document Report ---
ED Medical Screen (RME) - General Chief Complaint: Problem with Urinary Catheter Stated Complaint: CATHETER REPLACEMENT Time Seen by Provider: 04/26/20 17:14 Primary Care Provider: ELSA AGUILERA MD [Primary Care Provider] - Follow up as needed Notes: HPI: 49-year-old male with history of neurogenic bladder with a suprapubic catheter presenting because his catheter pulled out again. Patient states it is a 16 [place] catheter. He is requesting pain and nausea medicine. He is also requesting a referral to a local urologist as he states his last one has moved away PHYSICAL EXAMINATION: Patient has a stoma in the right suprapubic region without significant surrounding erythema but exam limited by triage I have greeted and performed a rapid initial assessment of this patient. A comprehensive ED assessment and evaluation of the patient, analysis of test results and completion of medical decision making process will be conducted by an additional ED providers. TRAVEL OUTSIDE OF THE [place] IN LAST 30 DAYS: No - Related Data Allergies/Adverse Reactions: No Known Allergies Allergy (Verified 04/10/20 12:08) Past Medical History - Social History Frequency of alcohol use: None Drug Abuse: None Family history: Reviewed & Not Pertinent - Past Medical History Cardiac Medical History: Reports: Hx DVT Denies: Hx Atrial Fibrillation, Hx Congestive Heart Failure, Hx Coronary Artery Disease, Hx Heart Attack, Hx Hypercholesterolemia, Hx Hypertension Pulmonary Medical History: Denies: Hx Asthma, Hx Bronchitis, Hx COPD, Hx Pneumonia, Hx Sleep Apnea Neurological Medical History: Denies: Hx Cerebrovascular Accident, Hx Seizures Endocrine Medical History: Denies: Hx Diabetes Mellitus Type 1, Hx Diabetes [place] itus Type 2, Hx Hyperthyroidism, Hx Hypothyroidism Renal/ Medical History: Reports: Hx Kidney Stones. Denies: Hx Benign Prostatic Hyperplasia, Hx End Stage Renal Disease, Hx Peritoneal Dialysis GI Medical History: Denies: Hx Cirrhosis, Hx Crohn's Disease, Hx Gastroesophageal Reflux Disease, Hx Hepatitis, Hx Hiatal Hernia, Hx Irritable Bowel, Hx Liver Failure, Hx Pancreatitis, Hx Ulcer Musculoskeltal Medical History: Reports Hx Arthritis, Denies Hx Fibromyalgia, Denies Hx Gout, Denies Hx Muscular Dystrophy Skin Medical History: Denies Hx Eczema, Denies Hx Psoriasis Psychiatric Medical History: Reports: Hx Bipolar Disorder, Hx Borderline Personality Disorder, Hx Depression, Hx Post Traumatic Stress Disorder, Hx Schizophrenia Traumatic Medical History: Reports: Hx Fractures - left tibia Infectious Medical History: Denies: Hx Hepatitis Past Surgical History: Reports: Hx Cholecystectomy, Hx Genitourinary Surgery - Suprapubic catheter, Hx Orthopedic Surgery - left ankle, left shoulder, right knee, neck. Denies: Hx Appendectomy, Hx Bowel Surgery, Hx Colostomy, Hx Coronary Artery Bypass Graft, Hx Gastric Bypass Surgery, Hx Herniorrhaphy, Hx Pacemaker, Hx Tonsillectomy - Immunizations Immunizations up to date: Yes Hx Diphtheria, Pertussis, Tetanus Vaccination: Yes Physical Exam - Vital signs Vitals: Temp Pulse Resp BP Pulse Ox 98.7 F 82 18 120/91 H 98 04/26/20 16:51 04/26/20 16:51 04/26/20 16:51 04/26/20 16:51 04/26/20 16:51 Course - Vital Signs Vital signs: Temp Pulse Resp BP Pulse Ox 98.7 F 82 18 120/91 H 98 04/26/20 16:53 04/26/20 16:51 04/26/20 16:51 04/26/20 16:51 04/26/20 16:51 Doctor's Discharge - Discharge Referrals: ELSA GAUILERA MD [Primary Care Provider] - Follow up as needed
[2020-04-26] MEDS ORDERED: ACETAMINOPHEN 325 MG TABLET PO ONE (21:37)
[2020-04-26] MEDS ORDERED: PROMETHAZINE HCL 25 MG TABLET PO ONE (21:37)
[2020-04-26] MEDS ORDERED: FLUCONAZOLE 100 MG TABLET PO ONE (21:37)
--- NOTE | 2020-04-26 21:39 | ER Document Report ---
ED General - General Chief Complaint: Problem with Urinary Catheter Stated Complaint: CATHETER REPLACEMENT Time Seen by Provider: 04/26/20 17:14 Primary Care Provider: ELSA AGUILERA MD [Primary Care Provider] - Follow up as needed Notes: Patient is a 49-year-old male with a history of needing a suprapubic catheter because of a history of transverse myelitis that comes to the Emergency Department for chief complaint of the catheter dislodging. He states that he is unsure if this was simply pulled on or if the balloon popped, he denies remembering a specific trauma or event. He states the pang was dislodged just prior to arrival. He reports some mild soreness and irritation of the area along with itching around the site but he denies bleeding or significant pain to the area. Patient denies fever. He states he follows with urology Dr. Milton in [place]. He states he has a one-week follow-up appointment when it was supposed to be replaced. TRAVEL OUTSIDE OF THE [place] IN LAST 30 DAYS: No - Related Data Allergies/Adverse Reactions: No Known Allergies Allergy (Verified 04/10/20 12:08) Past Medical History - General Information source: Patient - Social History Smoking Status: Never Smoker Frequency of alcohol use: None Drug Abuse: None Lives with: Family Family History: Reviewed & Not Pertinent, Hypertension Patient has homicidal ideation: No - Past Medical History Cardiac Medical History: Reports: Hx DVT Denies: Hx Atrial Fibrillation, Hx Congestive Heart Failure, Hx Coronary Artery Disease, Hx Heart Attack, Hx Hypercholesterolemia, Hx Hypertension Pulmonary Medical History: Denies: Hx Asthma, Hx Bronchitis, Hx COPD, Hx Pneumonia, Hx Sleep Apnea Neurological Medical History: Denies: Hx Cerebrovascular Accident, Hx Seizures Endocrine Medical History: Denies: Hx Diabetes Mellitus Type 1, Hx Diabetes Mellitus Type 2, Hx Hyperthyroidism, Hx Hypothyroidism Renal/ Medical History: Reports: Hx Kidney Stones. Denies: Hx Benign Prostatic Hyperplasia, Hx End Stage Renal Disease, Hx Peritoneal Dialysis GI Medical History: Denies: Hx Cirrhosis, Hx Crohn's Disease, Hx Gastroesophageal Reflux Disease, Hx Hepatitis, Hx Hiatal Hernia, Hx Irritable Bowel, Hx Liver Failure, Hx Pancreatitis, Hx Ulcer Musculoskeletal Medical History: Reports Hx Arthritis, Denies Hx Fibromyalgia, Denies Hx Gout, Denies Hx Muscular Dystrophy Skin Medical History: Denies Hx Eczema, Denies Hx Psoriasis Psychiatric Medical History: Reports: Hx Bipolar Disorder, Hx Borderline Personality Disorder, Hx Depression, Hx Post Traumatic Stress Disorder, Hx Schizophrenia Traumatic Medical History: Reports: Hx Fractures - left tibia Infectious Medical History: Denies: Hx Hepatitis Past Surgical History: Reports: Hx Cholecystectomy, Hx Genitourinary Surgery - Suprapubic catheter, Hx Orthopedic Surgery - left ankle, left shoulder, right knee, neck. Denies: Hx Appendectomy, Hx Bowel Surgery, Hx Colostomy, Hx Coronary Artery Bypass Graft, Hx Gastric Bypass Surgery, Hx Herniorrhaphy, Hx Pacemaker, Hx Tonsillectomy - Immunizations Immunizations up to date: Yes Hx Diphtheria, Pertussis, Tetanus Vaccination: Yes Review of Systems - Review of Systems Constitutional: No symptoms reported EENT: No symptoms reported Cardiovascular: No symptoms reported Respiratory: No symptoms reported Gastrointestinal: See HPI Genitourinary: See HPI Male Genitourinary: No symptoms reported Musculoskeletal: No symptoms reported Skin: No symptoms reported Hematologic/Lymphatic: No symptoms reported Neurological/Psychological: No symptoms reported Physical Exam - Vital signs Vitals: Temp Pulse Resp BP Pulse Ox 98.7 F 82 18 120/91 H 98 04/26/20 16:51 04/26/20 16:51 04/26/20 16:51 04/26/20 16:51 04/26/20 16:51 - Notes Notes: GENERAL: Alert, interacts well. No acute distress. HEAD: Normocephalic, atraumatic. EYES: Pupils equal, round, and reactive to light. Extraocular movements intact. ENT: Oral mucosa moist, tongue midline. Oropharynx unremarkable. Airway patent. NECK: Full range of motion. Supple. Trachea midline. No lymphadenopathy. LUNGS: Clear to auscultation bilaterally, no wheezes, rales, or rhonchi. No respiratory distress. Non-tender chest wall. HEART: Regular rate and rhythm. No murmur ABDOMEN: Soft, non-tender. Non-distended. Suprapubic catheter present in the right lower abdomen/suprapubic region, there is some surrounding erythema and some small excoriations suggestive of Natasha which patient is scratched. There is no noted tenderness, abnormal heat, streaking away from the area, cellulitis, induration, fluctuance noted. There is no bleeding or discharge from the stoma. Otherwise unremarkable exam. EXTREMITIES: Moves all 4 extremities spontaneously. No edema, normal radial and dorsalis pedis pulses bilaterally. No cyanosis. BACK: no cervical, thoracic, lumbar midline tenderness. No saddle anesthesia, normal distal neurovascular exam. Moves all extremities in full range of motion. NEUROLOGICAL: Alert and oriented x3. Normal speech. Cranial nerves II through XII grossly intact. Strength 5/5 in all extremities. PSYCH: Normal affect, normal mood. SKIN: Warm, dry, normal turgor. No rashes or lesions noted. Course - Re-evaluation Re-evalutation: Patient is alert, calm, well-appearing. Abdomen is soft and benign. Examination does show what appears to be some skin irritation and Natasha surrounding the suprapubic region, the Pang has been pulled out and appears to have popped the balloon, however there is no injury, noted pain, bleeding, discharge, cellulitis noted. Vital signs unremarkable. Discussed with patient, treated with Diflucan here and that he will have [id number] medication for this at home. Unfortunately there was an extended period of time that patient waited to get into the room and then to be evaluated, by the time I did evaluate him and we tried to place a 16 [place] Pang catheter like to when he had in the suprapubic location this was unable to pass. There is more delay and is attempting to find smaller sizes, 14 did not fit, I was able to place a 12 [place] coud with no resistance and with excellent urine return. I did explain to patient that he will need to see his urologist because of this, he states he will see them within the week. Patient has no additional complaints. Urine does appear infected. Patient with frequent urinary tract infections and has had resistant infections with culture based therapy, he has frequent urines that appear abnormal, we did discuss options. Patient has no abdominal pain, vomiting, fever, urine culture was placed and he will be contacted with any concerning results. Patient was still making urine which was coming out at random from the stoma despite no Pang catheter being in place for several hours. Discussed return precautions. Patient states understanding and agreement. - Vital Signs Vital signs: Temp Pulse Resp BP Pulse Ox 97.8 F 74 16 123/86 H 98 04/26/20 23:48 04/26/20 23:48 04/26/20 23:48 04/26/20 23:48 04/26/20 23:48 - Laboratory Laboratory results interpreted by me: 04/26/20 23:30 Urine Protein 100 H Urine Ketones TRACE H Urine Blood MODERATE H Ur Leukocyte Esterase LARGE H Discharge - Discharge Clinical Impression: Pang catheter problem Qualifiers: Encounter type: initial encounter Qualified Code(s): T83.9XXA - Unspecified complication of genitourinary prosthetic device, implant and graft, initial encounter Condition: Stable Disposition: HOME, SELF-CARE Additional Instructions: A Pang was replaced but because this started closing after the initial Pang dislodged unfortunately a smaller Pang was placed, this is a 12 [place] coud. Please follow-up with your urologist within a week for additional management of this. We have urine culture growing in the lab, you will be contacted for any concerning results. You have evidence of some yeast around the Pang site, you have been treated for this tonight. Keep the area dry, consider topical antifungal for the skin as well. Return for any concerning symptoms including vomiting, fever, severe worsening pain, developing or spreading redness around the area, discolored discharge, or any other concerning symptoms. Referrals: ELSA AGUILERA MD [Primary Care Provider] - Follow up as needed
[2020-04-26] MEDS ORDERED: OXYCODONE HCL IR 5 MG TABLET PO ONE (23:22)
[2020-04-26 23:56] VITALS: BP 123/86
[2020-04-27 00:10] LABS: APPEARANCE,URINE CLOUDY; BILIRUBIN,URINE NEGATIVE (NEGATIVE); COLOR,URINE YELLOW; GLUCOSE, URINE NEGATIVE (NEGATIVE); KETONES,URINE TRACE mg/dL (NEGATIVE); LEUKOCYTE ESTERASE,URINE LARGE (NEGATIVE); NITRITE,URINE NEGATIVE (NEGATIVE); PROTEIN,URINE 100 mg/dL (NEGATIVE); UROBILINOGEN,URINE NEGATIVE mg/dL (<2.0)
== END 2020-04-26 23:56 | disposition home or self-care (01) ==
LOC: ER 16:44
DX: T83.9XXA Unspecified complication of genitourinary prosthetic device, implant and graft, initial encounter (principal); Z86.718 Personal history of other venous thrombosis and embolism; X58.XXXA Exposure to other specified factors, initial encounter
CPT/HCPCS: 99283; 51702; 36415; 87086; 87088; 81001; A9270 ×4; 87186

== ENCOUNTER 2020-05-13 09:59 | Emergency (ER) | payer MEDICARE ==
[2020-05-13 10:16] VITALS: BP 105/68
[2020-05-13] MEDS ORDERED: ONDANSETRON HCL INJ/PF 4 MG/2 ML SDV IV ONE (10:20)
--- NOTE | 2020-05-13 10:23 | ER Document Report ---
ED Medical Screen (RME) - General Chief Complaint: Back Pain Stated Complaint: BACK PAIN Time Seen by Provider: 05/13/20 10:19 Primary Care Provider: ELSA AGUILERA MD [Primary Care Provider] - Follow up as needed Notes: HPI: 49-year-old male with chronic indwelling Vo, history of transverse myelitis presenting for nausea vomiting diarrhea that began last night around midnight. 2 episodes of vomiting 2 episodes of diarrhea. Complains of progressively worsening low back pain since yesterday. No fever. Patient states he was diagnosed with UTI 2 to 3 weeks ago through the emergency department just finished a course of Macrobid over the last 10 days but symptoms today are similar to when he had the UTI diagnosed originally. PHYSICAL EXAMINATION: Mild tenderness across the low back, no CVA tenderness. No abdominal pain on palpation, urine in the catheter is very cloudy I have greeted and performed a rapid initial assessment of this patient. A comprehensive ED assessment and evaluation of the patient, analysis of test results and completion of medical decision making process will be conducted by an additional ED providers. TRAVEL OUTSIDE OF THE [place] IN LAST 30 DAYS: No - Related Data Allergies/Adverse Reactions: No Known Allergies Allergy (Verified 05/13/20 10:05) Past Medical History - Social History Chew tobacco use (# tins/day): No Frequency of alcohol use: None Drug Abuse: None Family history: Reviewed & Not Pertinent - Past Medical History Cardiac Medical History: Reports: Hx DVT Denies: Hx Atrial Fibrillation, Hx Congestive Heart Failure, Hx Coronary Artery Disease, Hx Heart Attack, Hx Hypercholesterolemia, Hx Hypertension Pulmonary Medical History: Denies: Hx Asthma, Hx Bronchitis, Hx COPD, Hx Pneumonia, Hx Sleep Apnea Neurological Medical History: Denies: Hx Cerebrovascular Accident, Hx Seizures Endocrine Medical History: Denies: Hx Diabetes Mellitus Type 1, Hx Diabetes Mellitus Type 2, Hx Hyperthyroidism, Hx Hypothyroidism Renal/ Medical History: Reports: Hx Kidney Stones. Denies: Hx Benign Prostatic Hyperplasia, Hx End Stage Renal Disease, Hx Peritoneal Dialysis GI Medical History: Denies: Hx Cirrhosis, Hx Crohn's Disease, Hx Gastroesophageal Reflux Disease, Hx Hepatitis, Hx Hiatal Hernia, Hx Irritable Bowel, Hx Liver Failure, Hx Pancreatitis, Hx Ulcer Musculoskeltal Medical History: Reports Hx Arthritis, Denies Hx Fibromyalgia, Denies Hx Gout, Denies Hx Muscular Dystrophy Skin Medical History: Denies Hx Eczema, Denies Hx Psoriasis Psychiatric Medical History: Reports: Hx Bipolar Disorder, Hx Borderline Personality Disorder, Hx Depression, Hx Post Traumatic Stress Disorder, Hx Schizophrenia Traumatic Medical History: Reports: Hx Fractures - left tibia Infectious Medical History: Denies: Hx Hepatitis Past Surgical History: Reports: Hx Cholecystectomy, Hx Genitourinary Surgery - Suprapubic catheter, Hx Orthopedic Surgery - left ankle, left shoulder, right knee, neck. Denies: Hx Appendectomy, Hx Bowel Surgery, Hx Colostomy, Hx Coronary Artery Bypass Graft, Hx Gastric Bypass Surgery, Hx Herniorrhaphy, Hx Pacemaker, Hx Tonsillectomy - Immunizations Immunizations up to date: Yes Hx Diphtheria, Pertussis, Tetanus Vaccination: Yes Physical Exam - Vital signs Vitals: Temp 97.5 F 05/13/20 10:05 Course - Vital Signs Vital signs: Temp Pulse Resp BP Pulse Ox 97.5 F 103 H 18 105/68 98 05/13/20 10:15 05/13/20 10:15 05/13/20 10:15 05/13/20 10:15 05/13/20 10:15 Doctor's Discharge - Discharge Referrals: ELSA AGUILERA MD [Primary Care Provider] - Follow up as needed
[2020-05-13 11:13] LABS: ABSOLUTE BASOPHILS # (AUTO) 0.1 10^3/uL (0.0-0.2); ABSOLUTE EOSINOPHILS # (AUTO) 0.3 10^3/uL (0.0-0.6); ABSOLUTE LYMPHOCYTES (AUTO) 1.5 10^3/uL (0.5-4.7); ABSOLUTE MONOCYTES (AUTO) 0.7 10^3/uL (0.1-1.4); ABSOLUTE NEUT (AUTO) 5.4 10^3/uL (1.7-8.2); BASOPHILS % (AUTO) 1.4 % (0-2); EOSINOPHILS % (AUTO) 3.2 % (0-6); HEMATOCRIT 42.4 % (37.9-51.0); HEMOGLOBIN 14.5 g/dL (13.5-17.0); LYMPHOCYTES % (AUTO) 19.2 % (13-45); MEAN CORPUSCULAR HEMOGLOBIN 28.2 pg (27.0-33.4); MEAN CORPUSCULAR HGB CONC 34.2 g/dL (32.0-36.0); MEAN CORPUSCULAR VOLUME 83 fl (80-97); PLATELET COUNT 250 10^3/uL (150-450); RED BLOOD COUNT 5.14 10^6/uL (4.35-5.55); RED CELL DISTRIBUTION WIDTH 17.2 % (11.5-14.0); SEGMENTED NEUTROPHILS % (AUTO) 67.2 % (42-78); TOTAL CELLS COUNTED % (AUTO) 100 %; WHITE BLOOD COUNT 8.1 10^3/uL (4.0-10.5)
[2020-05-13 11:32] LABS: APPEARANCE,URINE CLOUDY; BILIRUBIN,URINE NEGATIVE (NEGATIVE); COLOR,URINE YELLOW; GLUCOSE, URINE >=500 mg/dL (NEGATIVE); KETONES,URINE NEGATIVE (NEGATIVE); LEUKOCYTE ESTERASE,URINE LARGE (NEGATIVE); NITRITE,URINE NEGATIVE (NEGATIVE); PROTEIN,URINE 100 mg/dL (NEGATIVE); UROBILINOGEN,URINE NEGATIVE mg/dL (<2.0)
[2020-05-13 11:42] LABS: ALBUMIN 4.1 g/dL (3.5-5.0); ALKALINE PHOSPHATASE 159 U/L (38-126); ANION GAP 8 (5-19); ASPARTATE AMINO TRANSFERASE 28 U/L (17-59); BILIRUBIN,TOTAL 0.4 mg/dL (0.2-1.3); BLOOD UREA NITROGEN 12 mg/dL (7-20); CALCIUM 9.4 mg/dL (8.4-10.2); CARBON DIOXIDE 25 mmol/L (22-30); CHLORIDE 102 mmol/L (98-107); GLUCOSE 151 mg/dL (75-110); POTASSIUM 4.4 mmol/L (3.6-5.0); TOTAL PROTEIN 6.8 g/dL (6.3-8.2)
[2020-05-13] MEDS ORDERED: MORPHINE SULFATE 10 MG/ML INJ IV ONE (13:55)
[2020-05-13] MEDS ORDERED: RINGERS SOLUTION,LACTATED 1,000 ML IV ONE (13:55)
--- NOTE | 2020-05-13 13:57 | ER Document Report ---
ED GI/ - General Chief Complaint: Back Pain Stated Complaint: BACK PAIN Time Seen by Provider: 05/13/20 10:19 Primary Care Provider: ELSA AGUILERA MD [Primary Care Provider] - Follow up tomorrow (Call today for an outpatient follow-up appointment.) Mode of Arrival: Medic Information source: Patient Notes: 49-year-old male past medical history significant for transverse myelitis anxiety, chronic Vo presents emergency room complaining of nausea vomiting that started earlier today. States he had his Vo changed 2 days ago. Was seen here in the middle of July was diagnosed with UTI was discharged home on Macrobid. States he was called a week later and told that he needs another week of antibiotics states he finished those 2 days ago. States he has a fever as high as 101.5. No medications for his fever. States he had one episode of diarrhea this morning. Has not had any diarrhea since. Is complaining of bladder spasms. Has not taken anything for pain. TRAVEL OUTSIDE OF THE [place] IN LAST 30 DAYS: No - Related Data Allergies/Adverse Reactions: No Known Allergies Allergy (Verified 05/13/20 10:05) Past Medical History - General Information source: Patient - Social History Smoking Status: Never Smoker Chew tobacco use (# tins/day): No Frequency of alcohol use: None Drug Abuse: None Family History: Reviewed & Not Pertinent, Hypertension Patient has homicidal ideation: No - Past Medical History Cardiac Medical History: Reports: Hx DVT Denies: Hx Atrial Fibrillation, Hx Congestive Heart Failure, Hx Coronary Artery Disease, Hx Heart Attack, Hx Hypercholesterolemia, Hx Hypertension Pulmonary Medical History: Denies: Hx Asthma, Hx Bronchitis, Hx COPD, Hx Pneumonia, Hx Sleep Apnea Neurological Medical History: Denies: Hx Cerebrovascular Accident, Hx Seizures Endocrine Medical History: Denies: Hx Diabetes Mellitus Type 1, Hx Diabetes Mellitus Type 2, Hx Hyperthyroidism, Hx Hypothyroidism Renal/ Medical History: Reports: Hx Kidney Stones. Denies: Hx Benign Prostatic Hyperplasia, Hx End Stage Renal Disease, Hx Peritoneal Dialysis GI Medical History: Denies: Hx Cirrhosis, Hx Crohn's Disease, Hx Gastroesophageal Reflux Disease, Hx Hepatitis, Hx Hiatal Hernia, Hx Irritable Bowel, Hx Liver Failure, Hx Pancreatitis, Hx Ulcer Musculoskeletal Medical History: Reports Hx Arthritis, Denies Hx Fibromyalgia, Denies Hx Gout, Denies Hx Muscular Dystrophy Skin Medical History: Denies Hx Eczema, Denies Hx Psoriasis Psychiatric Medical History: Reports: Hx Bipolar Disorder, Hx Borderline Pers onality Disorder, Hx Depression, Hx Post Traumatic Stress Disorder, Hx Schizophrenia Traumatic Medical History: Reports: Hx Fractures - left tibia Infectious Medical History: Denies: Hx Hepatitis Past Surgical History: Reports: Hx Cholecystectomy, Hx Genitourinary Surgery - Suprapubic catheter, Hx Orthopedic Surgery - left ankle, left shoulder, right knee, neck. Denies: Hx Appendectomy, Hx Bowel Surgery, Hx Colostomy, Hx Coronary Artery Bypass Graft, Hx Gastric Bypass Surgery, Hx Herniorrhaphy, Hx Pacemaker, Hx Tonsillectomy - Immunizations Immunizations up to date: Yes Hx Diphtheria, Pertussis, Tetanus Vaccination: Yes Review of Systems - Review of Systems Constitutional: Fever, Weakness Cardiovascular: No symptoms reported Respiratory: No symptoms reported Gastrointestinal: Diarrhea, Nausea, Vomiting Genitourinary: Other - Discolored urine Musculoskeletal: Muscle pain Skin: No symptoms reported Hematologic/Lymphatic: No symptoms reported Neurological/Psychological: No symptoms reported -: Yes All other systems reviewed and negative Physical Exam - Vital signs Vitals: Temp 97.5 F 05/13/20 10:05 - General General appearance: Appears well, Alert In distress: Moderate - Respiratory Respiratory status: No respiratory distress Chest status: Nontender Breath sounds: Normal Chest palpation: Normal - Cardiovascular Rhythm: Regular Heart sounds: Normal auscultation Murmur: No - Abdominal Inspection: Normal Distension: No distension Bowel sounds: Normal Tenderness: Tender - Generalized discomfort on palpation.. No: Guarding, Rebound Organomegaly: No organomegaly - Neurological Neuro grossly intact: Yes Cognition: Normal Orientation: AAOx4 [place] Coma Scale Eye Opening: Spontaneous [place] Coma Scale Verbal: Oriented [place] Coma Scale Motor: Obeys Commands [place] Coma Scale Total: 15 Speech: Normal Motor strength normal: LUE, RUE, LLE, RLE Sensory: Normal - Skin Skin Temperature: Warm Skin Moisture: Dry Skin Color: Normal Course - Re-evaluation Re-evalutation: 05/13/20 15:40 Patient is resting comfortably he is currently pain-free on exam. Discussed all lab and CT findings with the patient. He was counseled on importance of in creasing his water intake. Discussed his elevated glucose level as well as his urinalysis that was showing glucose in his urine. Patient does not have any history of diabetes. Case was staffed in length with Dr. Camacho who recommends we draw hemoglobin A1c which can be followed up by his primary care physician. Patient is aware of that. Also reviewed his previous urine culture. Will discharge patient home on p.o. Augmentin. Patient was given 1 dose of IV meropenem in the emergency room. Counseled on diabetic diet. Call his primary care physician tomorrow for a follow-up appointment for his elevated blood sugar. Patient was given strict return to the emergency room guidelines. Retur n for any new or worsening symptoms. All questions were answered. Patient verbalized understanding and agrees with plan of care. - Vital Signs Vital signs: Temp Pulse Resp BP Pulse Ox 97.5 F 103 H 18 105/68 98 05/13/20 10:15 05/13/20 10:15 05/13/20 10:15 05/13/20 10:15 05/13/20 10:15 - Laboratory Result Diagrams: 05/13/20 10:50 05/13/20 10:50 Laboratory results interpreted by me: 05/13/20 05/13/20 05/13/20 10:40 10:50 10:50 RDW 17.2 H Sodium 135.4 L Glucose 151 H Hemoglobin A1c % 7.1 H Alkaline Phosphatase 159 H Urine Protein Urine Glucose (UA) Urine Blood Ur Leukocyte Esterase 05/13/20 10:50 RDW Sodium Glucose Hemoglobin A1c % Alkaline Phosphatase Urine Protein 100 H Urine Glucose (UA) >=500 H Urine Blood SMALL H Ur Leukocyte Esterase LARGE H - Diagnostic Test Radiology reviewed: Reports reviewed Discharge - Discharge Clinical Impression: Hyperglycemia UTI (urinary tract infection) Qualifiers: Urinary tract infection type: catheter-associated UTI Indwelling urinary catheter type: indwelling urethral catheter Encounter type: initial encounter Qualified Code(s): T83.511A - Infection and inflammatory reaction due to ind welling urethral catheter, initial encounter Condition: Stable Disposition: HOME, SELF-CARE Instructions: Hyperglycemia ([facility]), Urinary Tract Infection ([facility]) Additional Instructions: You need to drink more water. Antibiotics as prescribed. We have drawn a hemoglobin A1c that needs to be followed up by your primary care physician for possible new onset of diabetes. It is imperative that you call your primary care physician for an appointment as soon as possible. Return to the emergency room for any new or worsening symptoms. Prescriptions: Amoxicillin/Potassium Clav [Augmentin 875-125 Tablet] 1 tab PO BID #20 tab Referrals: ELSA AGUILERA MD [Primary Care Provider] - Follow up tomorrow (Call today for an outpatient follow-up appointment.)
[2020-05-13] MEDS ORDERED: IMIPENEM/CILASTATIN SODIUM INJ 500 MG VIAL IV ONE (14:00)
--- NOTE | 2020-05-13 15:02 | RADIOLOGY REPORT (SQ) ---
EXAM DESCRIPTION: CT ABD/PELVIS WITH IV ONLY IMAGES COMPLETED DATE/TIME: 05/13/2020 2:42 pm REASON FOR STUDY: abdominal pain COMPARISON: 08/27/2018 TECHNIQUE: CT scan of the abdomen and pelvis performed using helical scanning technique with dynamic intravenous contrast injection. No oral contrast. Images reviewed with lung, soft tissue, and bone windows. Reconstructed coronal and sagittal MPR images reviewed. Delayed images for evaluation of the urinary system also acquired. All images stored on PACS. All CT scanners at this facility use dose modulation, iterative reconstruction, and/or weight based d osing when appropriate to reduce radiation dose to as low as reasonably achievable (ALARA). [facility]: Dose Right [facility]: CareDose [facility]: Dose Right [facility]: Teradose 4D [facility]: Wi3 CONTRAST TYPE AND DOSE: contrast/concentration: Isovue 350.00 mmol/ml; Total Contrast Delivered: 100 .0 ml; Total Saline Delivered: 71.9 ml RENAL FUNCTION: BUN 12 creatinine 0.64 RADIATION DOSE: CT Rad equipment meets quality standard of care and radiation dose reduction techniq ues were employed. CTDIvol: 16.7 - 19.4 mGy. DLP: 2219 mGy-cm.. LIMITATIONS: None. FINDINGS: LOWER CHEST: No significant findings. No nodules or infiltrates. LIVER: Normal size. No masses. No dilated ducts. SPLEEN: Normal size. No focal lesions. PANCREAS: No masses. No significant calcifications. No adjacent inflammation or peripancreatic fluid collections. Pancreatic duct not dilated. GALLBLADDER: Surgically absent. ADRENAL GLANDS: No significant masses or asymmetry. RIGHT KIDNEY AND URETER: No solid masses. No significant calcifications. No hydronephrosis or hyd roureter. LEFT KIDNEY AND URETER: No solid masses. No significant calcifications. No hydronephrosis or hydr oureter. AORTA AND VESSELS: No aneurysm. No dissection. Renal arteries, SMA, celiac without stenosis. RETROPERITONEUM: No retroperitoneal adenopathy, hemorrhage or masses. BOWEL AND PERITONEAL CAVITY: No masses or inflammatory changes. No free fluid or peritoneal masses. APPENDIX: Normal. PELVIS: Suprapubic catheter. No pelvic mass or fluid collection. ABDOMINAL WALL: No masses. No hernias. BONES: No significant or acute findings. OTHER: No other significant finding. IMPRESSION: NO SIGNIFICANT OR ACUTE FINDING IN THE ABDOMEN OR PELVIS ON CT SCAN WITH IV CONTRAST. TECHNICAL DOCUMENTATION: JOB ID: [id number] Quality ID # [id number]: Final reports with documentation of one or more dose reduction techniques (e.g., Au tomated exposure control, adjustment of the mA and/or kV according to patient size, use of iterative reconstruction technique) 2010 [employer]- All Rights Reserved Reading location - IP/workstation name: [email or web address]
== END 2020-05-13 15:47 | disposition home or self-care (01) ==
LOC: ER 09:59
DX: T83.511A Infection and inflammatory reaction due to indwelling urethral catheter, initial encounter (principal); N39.0 Urinary tract infection, site not specified; Y84.6 Urinary catheterization as the cause of abnormal reaction of the patient, or of later complication, without mention of misadventure at the time of the procedure; R11.2 Nausea with vomiting, unspecified; R19.7 Diarrhea, unspecified; N32.89 Other specified disorders of bladder; R50.9 Fever, unspecified; R73.9 Hyperglycemia, unspecified; R53.1 Weakness; M79.10 Myalgia, unspecified site; R10.817 Generalized abdominal tenderness
CPT/HCPCS: 99285; 96375; 96365; 36415; 87086; 85025; 87088; 80053; 81001; 87186; 83036; 74177; J0743; J2270; J2405; J7120

== ENCOUNTER 2020-05-14 12:29 | Emergency (ER) | payer MEDICARE ==
--- NOTE | 2020-05-14 14:18 | ER Document Report ---
ED Medical Screen (RME) - General Chief Complaint: General Weakness Stated Complaint: WEAKNESS/R KNEE PAIN Time Seen by Provider: 05/14/20 14:14 Primary Care Provider: ELSA AGUILERA MD [Primary Care Provider] - Follow up as needed Notes: HPI: 49-year-old male who is well-known to the emergency department presenting again for evaluation of weakness in his legs feels like he cannot walk. Patient was seen yesterday for similar complaints as well as urinary complaints diagnosed with UTI placed on Augmentin. His lab work and CT imaging of the abdomen pelvis yesterday were negative. Patient decided to present again today stating his legs are weak. He does not consistently follow-up with his PCP regarding these issues patient does have history of transverse myelitis PHYSICAL EXAMINATION: Limited exam in triage. Patient has an indwelling Vo catheter. I have greeted and performed a rapid initial assessment of this patient. A comprehensive ED assessment and evaluation of the patient, analysis of test results and completion of medical decision making process will be conducted by an additional ED providers. TRAVEL OUTSIDE OF THE [place] IN LAST 30 DAYS: No - Related Data Allergies/Adverse Reactions: No Known Allergies Allergy (Verified 05/13/20 10:05) Past Medical History - Social History Family history: Reviewed & Not Pertinent - Past Medical History Cardiac Medical History: Reports: Hx DVT Denies: Hx Atrial Fibrillation, Hx Congestive Heart Failure, Hx Coronary Artery Disease, Hx Heart Attack, Hx Hypercholesterolemia, Hx Hypertension Pulmonary Medical History: Denies: Hx Asthma, Hx Bronchitis, Hx COPD, Hx Pneumonia, Hx Sleep Apnea Neurological Medical History: Denies: Hx Cerebrovascular Accident, Hx Seizures Endocrine Medical History: Denies: Hx Diabetes Mellitus Type 1, Hx Diabetes Mellitus Type 2, Hx Hyperthyroidism, Hx Hypothyroidism Renal/ Medical History: Reports: Hx Kidney Stones. Denies: Hx Benign Prostatic Hyperplasia, Hx End Stage Renal Disease, Hx Peritoneal Dialysis GI Medical History: Denies: Hx Cirrhosis, Hx Crohn's Disease, Hx Gastroesophageal Reflux Disease, Hx Hepatitis, Hx Hiatal Hernia, Hx Irritable Bowel, Hx Liver Failure, Hx Pancreatitis, Hx Ulcer Musculoskeltal Medical History: Reports Hx Arthritis, Denies Hx Fibromyalgia, D enies Hx Gout, Denies Hx Muscular Dystrophy Skin Medical History: Denies Hx Eczema, Denies Hx Psoriasis Psychiatric Medical History: Reports: Hx Bipolar Disorder, Hx Borderline Personality Disorder, Hx Depression, Hx Post Traumatic Stress Disorder, Hx Schizophrenia Traumatic Medical History: Reports: Hx Fractures - left tibia Infectious Medical History: Denies: Hx Hepatitis Past Surgical History: Reports: Hx Cholecystectomy, Hx Genitourinary Surgery - Suprapubic catheter, Hx Orthopedic Surgery - left ankle, left shoulder, right knee, neck. Denies: Hx Appendectomy, Hx Bowel Surgery, Hx Colostomy, Hx Coronary Artery Bypass Graft, Hx Gastric Bypass Surgery, Hx Herniorrhaphy, Hx Pacemaker, Hx Tonsillectomy - Immunizations Immunizations up to date: Yes Hx Diphtheria, Pertussis, Tetanus Vaccination: Yes Physical Exam - Vital signs Vitals: Temp Pulse Resp BP Pulse Ox 97.6 F 95 16 114/73 97 05/14/20 12:33 05/14/20 12:05/14/20 12:05/14/20 12:05/14/20 12:33 Course - Vital Signs Vital signs: Temp Pulse Resp BP Pulse Ox 97.6 F 95 16 114/73 97 05/14/20 12:33 05/14/20 12:33 05/14/20 12:33 05/14/20 12:33 05/14/20 12:33 Doctor's Discharge - Discharge Referrals: ELSA AGUILERA MD [Primary Care Provider] - Follow up as needed
[2020-05-14 15:58] LABS: ABSOLUTE BASOPHILS # (AUTO) 0.1 10^3/uL (0.0-0.2); ABSOLUTE EOSINOPHILS # (AUTO) 0.3 10^3/uL (0.0-0.6); ABSOLUTE LYMPHOCYTES (AUTO) 1.3 10^3/uL (0.5-4.7); ABSOLUTE MONOCYTES (AUTO) 0.6 10^3/uL (0.1-1.4); ABSOLUTE NEUT (AUTO) 5.3 10^3/uL (1.7-8.2); BASOPHILS % (AUTO) 1.1 % (0-2); EOSINOPHILS % (AUTO) 3.4 % (0-6); HEMATOCRIT 41.6 % (37.9-51.0); LYMPHOCYTES % (AUTO) 17.8 % (13-45); MEAN CORPUSCULAR HEMOGLOBIN 28.2 pg (27.0-33.4); MEAN CORPUSCULAR HGB CONC 33.7 g/dL (32.0-36.0); MEAN CORPUSCULAR VOLUME 84 fl (80-97); MONOCYTES % (AUTO) 8.4 % (3-13); PLATELET COUNT 236 10^3/uL (150-450); RED BLOOD COUNT 4.98 10^6/uL (4.35-5.55); SEGMENTED NEUTROPHILS % (AUTO) 69.3 % (42-78); TOTAL CELLS COUNTED % (AUTO) 100 %; WHITE BLOOD COUNT 7.6 10^3/uL (4.0-10.5)
[2020-05-14 16:33] LABS: ALBUMIN 3.8 g/dL (3.5-5.0); ALKALINE PHOSPHATASE 136 U/L (38-126); ANION GAP 6 (5-19); ASPARTATE AMINO TRANSFERASE 36 U/L (17-59); BILIRUBIN,DIRECT 0.1 mg/dL (0.0-0.4); BILIRUBIN,TOTAL 0.6 mg/dL (0.2-1.3); BLOOD UREA NITROGEN 13 mg/dL (7-20); CALCIUM 9.3 mg/dL (8.4-10.2); CARBON DIOXIDE 27 mmol/L (22-30); CHLORIDE 104 mmol/L (98-107); GLUCOSE 103 mg/dL (75-110); POTASSIUM 4.6 mmol/L (3.6-5.0); TOTAL PROTEIN 6.5 g/dL (6.3-8.2)
[2020-05-14 16:34] LABS: ALCOHOL < 10 mg/dL (NONE DETECTED)
[2020-05-14 16:38] LABS: ERYTHROCYTE SEDIMENTATION RATE 13 mm/hr (0-15)
[2020-05-14 16:42] LABS: URINE AMPHETAMINES SCREEN NEGATIVE; URINE BARBITURATES SCREEN NEGATIVE; URINE COCAINE SCREEN NEGATIVE; URINE MARIJUANA (THC) SCREEN NEGATIVE; URINE METHADONE SCREEN NEGATIVE; URINE PHENCYCLIDINE SCREEN NEGATIVE
[2020-05-14 16:45] LABS: URINE BENZODIAZEPINES SCREEN UNCONFIRMED POSITIVE
[2020-05-14] MEDS ORDERED: ONDANSETRON 4 MG TAB.RAPDIS PO ONE (18:16)
--- NOTE | 2020-05-14 19:25 | ER Document Report ---
ED General - General TRAVEL OUTSIDE OF THE [place] IN LAST 30 DAYS: No <ADAL OLIVARES - Last Filed: 05/15/20 17:57> <AKASH DSOUZA - Last Filed: 05/15/20 22:45> - General Chief Complaint: General Weakness Stated Complaint: WEAKNESS/R KNEE PAIN Time Seen by Provider: 05/14/20 14:14 Primary Care Provider: ELSA AGUILERA MD [Primary Care Provider] - Follow up as needed Notes: 49-year-old male with past medical history of transverse myelitis, neurogenic bl adder presenting with increasing leg weakness, numbness and tingling in legs x 2 weeks. States he has had difficulty handling his bowel control. States he has a neurogenic bladder and no changes with that. He has fallen multiple due to his legs going weak. Feels that he has decreased sensation in bilateral legs. States he has low back pain. Asking for pain medications. Was seen yesterday in the ER and treated for a UTI. He denies any fever, chills, worsening symptoms. (ADAL OLIVARES) - Related Data Allergies/Adverse Reactions: No Known Allergies Allergy (Verified 05/13/20 10:05) Past Medical History - Social History Smoking Status: Never Smoker Frequency of alcohol use: None Drug Abuse: None Family History: Reviewed & Not Pertinent, Hypertension - Past Medical History Cardiac Medical History: Reports: Hx DVT Denies: Hx Atrial Fibrillation, Hx Congestive Heart Failure, Hx Coronary Artery Disease, Hx Heart Attack, Hx Hypercholesterolemia, Hx Hypertension Pulmonary Medical History: Denies: Hx Asthma, Hx Bronchitis, Hx COPD, Hx Pneumonia, Hx Sleep Apnea Neurological Medical History: Denies: Hx Cerebrovascular Accident, Hx Seizures Endocrine Medical History: Denies: Hx Diabetes Mellitus Type 1, Hx Diabetes Mellitus Type 2, Hx Hyperthyroidism, Hx Hypothyroidism Renal/ Medical History: Reports: Hx Kidney Stones. Denies: Hx Benign Prostatic Hyperplasia, Hx End Stage Renal Disease, Hx Peritoneal Dialysis GI Medical History: Denies: Hx Cirrhosis, Hx Crohn's Disease, Hx Gastroesophageal Reflux Disease, Hx Hepatitis, Hx Hiatal Hernia, Hx Irritable Bowel, Hx Liver Failure, Hx Pancreatitis, Hx Ulcer Musculoskeletal Medical History: Reports Hx Arthritis, Denies Hx Fibromyalgia, Denies Hx Gout, Denies Hx Muscular Dystrophy Skin Medical History: Denies Hx Eczema, Denies Hx Psoriasis Psychiatric Medical History: Reports: Hx Bipolar Disorder, Hx Borderline Personality Disorder, Hx Depression, Hx Post Traumatic Stress Disorder, Hx Schizophrenia Traumatic Medical History: Reports: Hx Fractures - left tibia Infectious Medical History: Denies: Hx Hepatitis Past Surgical History: Reports: Hx Cholecystectomy, Hx Genitourinary Surgery - Suprapubic catheter, Hx Orthopedic Surgery - left ankle, left shoulder, right knee, neck. Denies: Hx Appendectomy, Hx Bowel Surgery, Hx Colostomy, Hx Coronary Artery Bypass Graft, Hx Gastric Bypass Surgery, Hx Herniorrhaphy, Hx Pacemaker, Hx Tonsillectomy - Immunizations Immunizations up to date: Yes Hx Diphtheria, Pertussis, Tetanus Vaccination: Yes <ADAL OLIVARES - Last Filed: 05/15/20 17:57> Review of Systems - Review of Systems Constitutional: See HPI EENT: No symptoms reported Cardiovascular: No symptoms reported Gastrointestinal: No symptoms reported Musculoskeletal: See HPI Skin: No symptoms reported Neurological/Psychological: See HPI <ADAL OLIVARES - Last Filed: 05/15/20 17:57> Physical Exam <ADAL OLIVARES - Last Filed: 05/15/20 17:57> - Vital signs Vitals: Temp 97.6 F 05/14/20 12:30 - Notes Notes: Adult General: GENERAL: Alert, interacts well. No acute distress HEAD: Normocephalic, atraumatic EYES: Extraocular movements intact. ENT: Airway patent. Nares patent. NECK: Full range of motion. Supple. Trachea midline. No lymphadenopathy. LUNGS: Clear to auscultation bilaterally, no wheezes, rales, or rhonchi. No respiratory distress. Nontender chest wall. HEART: Regular rate and rhythm. No murmurs, rubs or gallops. ABDOMEN: Soft, nontender. Nondistended. GENITOURINARY: Deferred EXTREMITIES: Moves all 4 extremities spontaneously. No edema, normal radial and dorsal pedis pulses bilaterally. No cyanosis. BACK: Low back paraspinal tenderness. No cervical, thoracic, lumbar midline tenderness. No saddle anesthesia, normal distal neurovascular exam. Moves all extremities with full range of motion. NEUROLOGICAL: Alert and oriented x3. Normal speech. Cranial nerves II through XII grossly intact. Strength 4/ 5 in bilateral lower extremities. decreased sensation to light touch in lower extremities. PSYCH: Normal affect, normal mood. SKIN: Warm, dry, normal turgor. No rashes or lesions noted. (ADAL OLIVARES) Course - Laboratory Result Diagrams: 05/15/20 16:50 05/14/20 15:28 <ADAL OLIVARES - Last Filed: 05/15/20 17:57> - Laboratory Result Diagrams: 05/15/20 16:50 05/15/20 17:15 <AKASH DSOUZA - Last Filed: 05/15/20 22:45> - Re-evaluation Re-evalutation: 05/14/20 20:32 Patient's CK was slightly elevated at 363. Additional labs are unremarkable. I would recommend patient have an MRI based on his symptoms and that they are worsening. I called MRI around 7:40 and they stated that unless the paperwork can be completed soon, it would need to wait until morning as they are not available after 8. Patient was turned over to Akash Dsouza [employer] who will follow up with patient. 05/15/20 11:39 Patient was turned back over to me at the start of the shift this morning at 8 AM. We are pending the results of his MRI. Patient asking for pain medication and Zofran. Will order. 05/15/20 17:43 MRI results show likely bilateral L5 nerve root impingement in the extraforam inal zones secondary to prominent osteophytic lipping at the inferior endplate of the L5 vertebral body. No significant central canal stenosis. Patient continues to have weakness and decreased sensation and states he is still unable to control his bowels. I called [facility] to consult with neurology. I discussed case with . She agrees to that patient for transfer for further evaluation. They do not feel that this patient has cauda equina at this time. Does not provide any medication recommendations at this time. Transfer initiated 05/15/20 17:47 I was notified by the nurse that the patient had a bright red bowel movement. I performed a digital rectal exam on the patient and he was Hemoccult positive. He does have good rectal tone. Terri VALDIVIA was there as a standby. CBC, PT/INR were ordered. Patient remains stable at this time. 05/15/20 17:48 Patient's hemoglobin is at 13.4 at this time. Patients vitals ramain stable. 07/04/20 17:57 I called [facility] and spoke with Haily at the transfer center to update them on the bright red blood in the bowels and the positive Hemoccult test. (ADAL OLIVARES) 05/15/20 06:35 I received a report on this patient on 05/14/2020 at approximately 8 PM. MRI orders were placed. Patient was monitored through the night, he has had no acute complaints or worsening symptoms. 05/15/20 21:14 Transport crew is here to transport patient to [facility]. Patient reevaluated at this time, patient stable for transport. (AKASH DSOUZA) - Vital Signs Vital signs: Temp Pulse Resp BP Pulse Ox 98.0 F 81 20 113/76 96 05/15/20 20:54 05/15/20 20:54 05/15/20 20:54 05/15/20 20:54 05/15/20 20:54 - Laboratory Laboratory results interpreted by me: 05/14/20 05/14/20 05/14/20 15:28 15:28 15:28 Hgb RDW 17.0 H Sodium 136.5 L Glucose Alkaline Phosphatase 136 H Creatine Kinase 363 H Total Protein Albumin 05/15/20 05/15/20 16:50 17:15 Hgb 13.4 L RDW 16.7 H Sodium 134.2 L Glucose 163 H Alkaline Phosphatase Creatine Kinase Total Protein 6.0 L Albumin 3.4 L Discharge <ADAL OLIVARES - Last Filed: 05/15/20 17:57> <AKASH DSOUZA - Last Filed: 05/15/20 22:45> - Discharge Clinical Impression: Weakness Back pain Qualifiers: Back pain location: low back pain Chronicity: chronic Back pain laterality: bilateral Sciatica presence: with sciatica Sciatica laterality: bilateral sciatica Qualified Code(s): M54.42 - Lumbago with sciatica, left side Disposition: [facility] Additional Instructions: Dr. Cleaning has accepted gemma. Referrals: ELSA AGUILERA MD [Primary Care Provider] - Follow up as needed
[2020-05-14] MEDS ORDERED: MORPHINE SULFATE IR 15 MG TABLET PO ONE (21:12)
--- NOTE | 2020-05-14 21:12 | ER Document Report ---
Doctor's Note Notes: 05/14/20 21:10 49-year-old male patient I received an handoff from [facility] SHASHA Thompson. Patient is in need of an MRI of the lumbar spine. MRI is not in-house, they will be here in the morning. This was discussed with the patient. Patient agrees to stay for the night to have MRI first thing in the morning. He will have a dinner tray ordered and will be given some pain medication. Patient has his own home medications with him and he has been given permission to take them. 05/15/20 06:33 I have monitored patient through the night, he has not had any acute needs other than a request for pain medication which was provided. Orders have been placed for his morning MRI. Patient is in agreement with plan for MRI. If MRI is normal patient will be discharged home.
[2020-05-15] MEDS ORDERED: ACETAMINOPHEN 325 MG TABLET PO ONE (04:04)
[2020-05-15] MEDS ORDERED: ONDANSETRON 4 MG TAB.RAPDIS PO ONE ×2 (04:04→15:55)
[2020-05-15] MEDS ORDERED: MORPHINE SULFATE IR 15 MG TABLET PO ONE ×3 (04:44→20:42)
[2020-05-15] MEDS ORDERED: LORAZEPAM 0.5 MG TABLET PO ONE (09:08)
--- NOTE | 2020-05-15 11:56 | RADIOLOGY REPORT (SQ) ---
EXAM DESCRIPTION: MRI LUMBAR SPINE COMBO IMAGES COMPLETED DATE/TIME: 05/15/2020 11:37 am REASON FOR STUDY: saddle anesthesia, B/L leg weakness, bowel incont COMPARISON: None. TECHNIQUE: Sagittal and Axial imaging includes T1, T1 post gadolinium, T2, STIR and gradient echo se quences. Coronal T2/HASTE imaging. CONTRAST TYPE AND DOSE: 20 mL Prohance. RENAL FUNCTION: Not indicated. ACR Type II contrast agent associated with few, if any, unconfounded cases of NSF LIMITATIONS: None. FINDINGS: VISUALIZED UPPER ABDOMEN: Limited evaluation. No acute or suspicious findings suggested. SEGMENTATION: No transitional anatomy. The lowest well-developed disc space is labeled L5-S1. ALIGNMENT: Anatomic. VERTEBRAE: Intact. No fractures. BONE MARROW: There is a non expansile area of increased T1 and T2 signal within the posterior right a spect of the L4 vertebral body extending into the right pedicle that may represent a hemangioma. No aggressive features are present. Some degenerative marrow changes are present in the inferior endpla te of the L5 vertebral body. DISC SIGNAL: There is loss of height as well as desiccation present in the L5-S1 intervertebral disc. POSTERIOR ELEMENTS: Generally intact. No pars defect evident. HARDWARE: None in the spine. CORD AND CONUS: Normal in size and signal intensity. Conus at the appropriate level. SOFT TISSUES: No aortic aneurysm seen. No bulky retroperitoneal adenopathy or mass. No paraspinal mas s or fluid. L1-L2: No significant spinal stenosis or exit foraminal stenosis. L2-L3: No significant spinal stenosis or exit foraminal stenosis. L3-L4: No significant spinal stenosis or exit foraminal stenosis. L4-L5: No significant spinal stenosis or exit foraminal stenosis. L5-S1: The bilateral exiting L5 nerve roots are contacted in the extraforaminal zone by prominent ost eophytic lipping on the inferior aspect of the L5 vertebral body. There is a very shallow broad-base d posterior disc bulge as well. No significant central canal stenosis is present. Moderate to sever e bilateral neural foraminal stenosis is present, mostly on the basis of osteophytic lipping of the i nferior endplate of L5. LOWER THORACIC: Incompletely imaged. No stenosis seen. SACRUM: Visualized upper sacrum intact. ENHANCEMENT: No abnormal enhancement. OTHER: No other significant findings. IMPRESSION: Likely bilateral L5 nerve root impingement in the extraforaminal zones secondary to prom inent osteophytic lipping at the inferior endplate of the L5 vertebral body. No significant central canal stenosis. TECHNICAL DOCUMENTATION: JOB ID: [id number] 2010 [email or web address]- All Rights Reserved Reading location - IP/workstation name: [email or web address]
[2020-05-15 17:26] LABS: ABSOLUTE EOSINOPHILS # (AUTO) 0.2 10^3/uL (0.0-0.6); ABSOLUTE LYMPHOCYTES (AUTO) 1.2 10^3/uL (0.5-4.7); ABSOLUTE MONOCYTES (AUTO) 0.4 10^3/uL (0.1-1.4); ABSOLUTE NEUT (AUTO) 3.2 10^3/uL (1.7-8.2); BASOPHILS % (AUTO) 0.9 % (0-2); HEMATOCRIT 38.6 % (37.9-51.0); HEMOGLOBIN 13.4 g/dL (13.5-17.0); LYMPHOCYTES % (AUTO) 23.5 % (13-45); MEAN CORPUSCULAR HEMOGLOBIN 28.6 pg (27.0-33.4); MEAN CORPUSCULAR HGB CONC 34.6 g/dL (32.0-36.0); MEAN CORPUSCULAR VOLUME 83 fl (80-97); PLATELET COUNT 225 10^3/uL (150-450); RED BLOOD COUNT 4.68 10^6/uL (4.35-5.55); RED CELL DISTRIBUTION WIDTH 16.7 % (11.5-14.0); SEGMENTED NEUTROPHILS % (AUTO) 63.6 % (42-78); TOTAL CELLS COUNTED % (AUTO) 100 %; WHITE BLOOD COUNT 5.1 10^3/uL (4.0-10.5)
[2020-05-15 17:40] LABS: INTERNATIONAL RATION (INR) 1.11; PROTHROMBIN TIME 14.4 SEC (11.4-15.4)
[2020-05-15 17:53] LABS: ALBUMIN 3.4 g/dL (3.5-5.0); ALKALINE PHOSPHATASE 118 U/L (38-126); ANION GAP 8 (5-19); ASPARTATE AMINO TRANSFERASE 25 U/L (17-59); BILIRUBIN,TOTAL 0.4 mg/dL (0.2-1.3); BLOOD UREA NITROGEN 10 mg/dL (7-20); CALCIUM 8.9 mg/dL (8.4-10.2); CARBON DIOXIDE 26 mmol/L (22-30); CHLORIDE 100 mmol/L (98-107); GLUCOSE 163 mg/dL (75-110)
[2020-05-15 20:55] VITALS: BP 113/76
== END 2020-05-15 21:15 | disposition short-term general hospital (02) ==
LOC: ER 12:29
DX: M54.42 Lumbago with sciatica, left side (principal); M54.41 Lumbago with sciatica, right side; G89.29 Other chronic pain; R53.1 Weakness; R20.0 Anesthesia of skin; R20.2 Paresthesia of skin; K92.1 Melena; N31.9 Neuromuscular dysfunction of bladder, unspecified; N39.0 Urinary tract infection, site not specified; Z79.899 Other long term (current) drug therapy; R15.9 Full incontinence of feces
CPT/HCPCS: 99284; 36415; 80307 ×2; 82550; 83735; 85025; 85652; 85610; 82270; 80053; 72158; A9576; A9270 ×6; S0119